=== PATIENT | male | born 1960 | race Caucasian/White ===

== ENCOUNTER 2016-11-13 01:07 | Emergency (ER) | payer MEDICAID ==
--- NOTE | 2016-11-13 06:47 | ER Document Report ---
ED General - General Mode of Arrival: Ambulatory Information source: Patient TRAVEL OUTSIDE OF THE [place] IN LAST 30 DAYS: No - HPI Onset: Other - see narrative Onset/Duration: Intermittent Quality of pain: No pain Severity: None Associated symptoms: None Exacerbated by: Denies Relieved by: Denies Similar symptoms previously: No Recently seen / treated by doctor: No - General Chief Complaint: Leg Pain Stated Complaint: LOWER LEFT LEG PAIN-NO INJURY Notes: Patient is a 56 year old male that presents to the emergency department today with complaints of ankles/hands turning purple. Patient is a poor historian so history is limited. Patient reports 3 months of intermittent color change in his hands and ankles. Patient is not able to correlate any specific actions with this color change. Patient states he has never been told he has Raynaud's syndrome. (CATINA SPRINGER) - Related Data Allergies/Adverse Reactions: No Known Allergies Allergy (Unverified 04/28/12 16:39) Past Medical History - General Information source: Patient, [facility] Records - Social History Smoking Status: Current Every Day Smoker Cigarette use (# per day): Yes Chew tobacco use (# tins/day): No Frequency of alcohol use: None Drug Abuse: None Lives with: Family Family History: Reviewed & Not Pertinent, CAD, Hyperlipidemia, Hypertension Patient has suicidal ideation: No Patient has homicidal ideation: No - Past Medical History Cardiac Medical History: Reports: Hx Hypertension Neurological Medical History: Reports: Hx Seizures - Seizures when drinking states he has not drank in 16 years Musculoskeltal Medical History: Reports Hx Arthritis, Reports Hx Musculoskeletal Deformity - degenerative disc disease, Reports Hx Musculoskeletal Trauma Traumatic Medical History: Reports: Hx Fractures, Hx Spine Fracture - States "back in 2 places" Surgical Hx: Negative Review of Systems - Review of Systems Constitutional: No symptoms reported EENT: No symptoms reported Cardiovascular: No symptoms reported Respiratory: No symptoms reported Gastrointestinal: No symptoms reported Genitourinary: No symptoms reported Male Genitourinary: No symptoms reported Musculoskeletal: No symptoms reported Skin: See HPI, Other - hands and ankles are "purple" Hematologic/Lymphatic: No symptoms reported Neurological/Psychological: No symptoms reported -: Yes All other systems reviewed and negative Physical Exam - General General appearance: Appears well, Alert In distress: None - HEENT Head: Normocephalic, Atraumatic Eyes: Normal Extraocular movements intact: Yes - Respiratory Respiratory status: No respiratory distress Chest status: Nontender Breath sounds: Normal - Cardiovascular Rhythm: Regular Heart sounds: Normal auscultation Pulses: Normal: Femoral, Popliteal, Dorsalis pedis - Abdominal Inspection: Normal Distension: No distension - Extremities General upper extremity: Normal inspection, Nontender, Normal ROM General lower extremity: Normal inspection, Nontender, Normal ROM - Neurological Neuro grossly intact: Yes Cognition: Normal Orientation: AAOx4 Speech: Normal - Psychological Associated symptoms: Normal affect, Normal mood - Skin Skin Temperature: Warm Skin Moisture: Dry Skin Color: Normal - Vital signs Vitals: Temp Pulse Resp BP Pulse Ox 98.2 F 103 H 16 123/69 97 11/13/16 01:58 11/13/16 01:58 11/13/16 01:58 11/13/16 01:58 11/13/16 01:58 (CIELO ALFONSO) (CATINA SPRINGER) - Extremities Notes: Hands and Ankles are well profused, normal color. (CATINA SPRINGER) Course - Re-evaluation Re-evalutation: 11/13/16 07:04 I personally performed the services described in the documentation, reviewed and edited the documentation which was dictated to my scribe in my presence, and it accurately records my words and actions. seen and evaluated for left leg pain bilateral calf pain. Patient states been going on for several months. 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 He is ambulatory in the ED examined in a gown. 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 He has not follow-up with his primary care physician and is a heavy smoker. He says that both of his Throat and Ache. He Is on Multiple Medications Including Pain Management and Neurontin. He Denies This Being New or Different in the past Several Months. Denies Any Back Pain Abdominal Pain Loss of Bowel or Bladder Function Urinary Symptoms or Difficulty with Ambulation. He Says Occasionally He Is Fingertips on Both Sides of His Hand Turned Blue Currently on Examination Is Well-Appearing Nontoxic in No Acute Distress. On Full Examination she is alert and oriented 3 no abdominal tenderness guarding rebound rigidity equal bilateral femoral dorsalis pedis posterior tibial pulses good perfusion to the lower x-rays no discoloration and cyanosis ecchymosis or neurological deficit he is ambulatory without any difficulty. At this point he could have a component of vascular disease given his extensive history of smoking. No acute vascular or neurological compromise currently but he needs to follow up closely with his primary care physician and have outpatient testing for this. Discussed specifically with him reasons for ED return sooner (CIELO ALFONSO) - Vital Signs Vital signs: Temp Pulse Resp BP Pulse Ox 98.4 F 100 16 122/83 97 11/13/16 07:30 11/13/16 07:30 11/13/16 07:30 11/13/16 07:30 11/13/16 07:30 (CIELO ALFONSO) (CATINA SPRINGER) Scribe Documentation - Scribe Written by Ginette:: Ginette Garcia, 0900 11/13/2016 acting as scribe for :: Joey
[2016-11-13 07:33] VITALS: BP 122/83
== END 2016-11-13 07:34 | disposition home or self-care (01) ==
LOC: ER 01:07
DX: M79.605 Pain in left leg (principal); F17.210 Nicotine dependence, cigarettes, uncomplicated; I10 Essential (primary) hypertension
CPT/HCPCS: 99283

== ENCOUNTER → 2016-11-27 | Outpatient (CLI) | payer MEDICAID | LOC: RAD 06:44 | PROVIDERS: ATTEND Physician Assistant | DX: J44.9 Chronic obstructive pulmonary disease, unspecified (principal) | CPT/HCPCS: 71020 ==

== ENCOUNTER → 2016-12-11 | Outpatient (CLI) | payer MEDICAID ==
--- NOTE | 2016-12-11 15:59 | XCELERA REPORT ---
[address] [address] Upper Extremity Arterial Evaluation Name: LYNNETTEGALI JR Narda Age: 56 yrs Gender: Male : 1960 Patient Status: Outpatient Patient Location: Study Date: 12/11/2016 01:34 PM Procedure: A duplex scan of the upper extremity arteries was performed bilaterally. Reason For Study: CLAUDICATION I73.9 Ordering Physician: MELONIE WESTBROOK PA-C Performed By: Gee Baez Measurements and Calculations Right Left Mid SCLA PSV 60.8 36.8 cm/sec Ax A PSV 48.2 39.9 cm/sec Dist Brach A PSV -58.5 -46.3 cm/sec Dist Rad A PSV 29.5 40.4 cm/sec Dist Ulnar A PSV 23.6 19.6 cm/sec Ax A PSV 48.2 39.9 cm/sec Dist Brach A PSV -58.5 -46.3 cm/sec Dist Rad A PSV 29.5 40.4 cm/sec Dist Ulnar A PSV 23.6 19.6 cm/sec Mid SCLA PSV 60.8 36.8 cm/sec Right Side Arterial Evaluation Normal velocity, waveform and triphasic flow are present, from the Common Carotid artery to the forearm vessels. 0 % stenosis is noted. Left Side Arterial Evaluation Normal velocity, waveform and triphasic flow are present, from the Common Carotid artery to the forearm vessels. 0 % stenosis is noted. Interpretation Summary No hemodynamically significant lesions in the bilateral upper extremities, on duplex imaging, at rest. : ABDULAZIZ SONG Lennox >
--- NOTE | 2016-12-11 16:02 | XCELERA REPORT ---
[address] [address] Lower Extremity Arterial Evaluation Name: GALI CHURCH JR Age: 56 yrs Gender: Male : 1960 Patient Status: Outpatient Patient Location: Study Date: 12/11/2016 01:22 PM Procedure: A color flow and duplex scan of the lower extremity arteries was performed bilaterally with velocity and waveform anaylsis. Reason For Study: CLAUDICATION I73.9 Ordering Physician: MELONIE WESTBROOK PA-C Performed By: Gee Baez Measurements and Calculations Right Left CALL CENTER SUPPORT CONSULTANT PSV 79.4 82.5 cm/sec Prox PFA PSV -61.6 -59.4 cm/sec Dist SFA PSV -59.4 -55.5 cm/sec Prox Pop A PSV 40.2 50.5 cm/sec Dist YEMI PSV 47.1 36.2 cm/sec Dist ANESTHESIOLOGY PHYSICIAN ASSISTANT PSV 42.1 42.1 cm/sec David Pedis PSV 52.8 52.5 cm/sec Right Side Arterial Evaluation Normal velocity, waveform and triphasic flow are present, from the Common Femoral artery to the infrageniculate vessels. The ankle-brachial index is 1.06. 0 % stenosis is noted. Left Side Arterial Evaluation Normal velocity, waveform and triphasic flow are present, from the Common Femoral artery to the infrageniculate vessels. The ankle-brachial index is 1.09. 0 % stenosis is noted. Interpretation Summary No hemodynamically significant lesions in the bilateral lower extremities, on duplex imaging, at rest. : MELONIE WESTBROOK PA-C > Genaro Alvarez
== END ==
LOC: SP 12:38
PROVIDERS: ATTEND Physician Assistant
DX: I73.9 Peripheral vascular disease, unspecified (principal)
CPT/HCPCS: 93925; 93930

== ENCOUNTER 2016-12-12 02:15 | Observation (INO) | payer MEDICAID ==
[2016-12-12] MEDS ORDERED: ALBUTEROL SULFATE 0.083% NEB 2.5 MG/3 ML AMPUL NEB ONE ×2 (02:29→02:59)
[2016-12-12 02:54] LABS: VENOUS BLOOD BASE EXCESS -5.4 mmol/L; VENOUS BLOOD HCO3 23.3 mmol/L (20-32); VENOUS BLOOD PCO2 58.8 mmHg (35-63); VENOUS BLOOD PH 7.22 (7.30-7.42)
[2016-12-12 02:54] LABS: ARTERIAL BLOOD BASE EXCESS -6.1 mmol/L; ARTERIAL BLOOD O2 SATURATION 99.5 % (94-98)
[2016-12-12 02:59] LABS: PROTHROMBIN TIME 16.7 SEC (11.4-15.4)
[2016-12-12 03:02] LABS: ABSOLUTE BASOPHILS # (AUTO) 0.1 10^3/uL (0.0-0.2); ABSOLUTE EOSINOPHILS # (AUTO) 0.1 10^3/uL (0.0-0.6); ABSOLUTE LYMPHOCYTES (AUTO) 2.7 10^3/uL (0.5-4.7); ABSOLUTE MONOCYTES (AUTO) 1.3 10^3/uL (0.1-1.4); ABSOLUTE NEUT (AUTO) 7.3 10^3/uL (1.7-8.2); BASOPHILS % (AUTO) 0.8 % (0-2); EOSINOPHILS % (AUTO) 0.7 % (0-6); HEMOGLOBIN 15.3 g/dL (13.5-17.0); HGB HCT DIFFERENCE -2.1; LYMPHOCYTES % (AUTO) 23.7 % (13-45); MEAN CORPUSCULAR HEMOGLOBIN 28.1 pg (27.0-33.4); MEAN CORPUSCULAR VOLUME 88 fl (80-97); MONOCYTES % (AUTO) 11.1 % (3-13); RED BLOOD COUNT 5.45 10^6/uL (4.35-5.55); SEGMENTED NEUTROPHILS % (AUTO) 63.7 % (42-78); WHITE BLOOD COUNT 11.4 10^3/uL (4.0-10.5)
--- NOTE | 2016-12-12 03:04 | ER Document Report ---
ED Respiratory Problem - General Chief Complaint: Breathing Difficulty Stated Complaint: SHORTNESS OF BREATH Time seen by provider: 03:04 Mode of Arrival: Ambulatory Information source: Patient TRAVEL OUTSIDE OF THE [place] IN LAST 30 DAYS: No - HPI Patient complains to provider of: Short of breath Short of Breath: Severe Chest pain/discomfort: Tightness Cough: Nonproductive Associated symptoms: Congestion, Cough, Difficulty breathing, Short of breath Notes: Patient is a 56-year-old male who arrived by private vehicle, apparently a friend dropped him off for complaints of difficulty breathing, and purplish discoloration to his face, ears, hands and feet, patient reports she's had a cold for a few days, which is worsened and caused him to have worsening shortness of breath, he is a smoker but reports he's only smoked 2 cigarettes in the last 3 days and was recently diagnosed with COPD, his cough is nonproductive, there is no fever, no chest pain, no abdominal pain, no nausea or vomiting, patient was seen in this emergency room recently for the purplish discoloration to his hands and feet but apparently it was resolved at time of evaluation - Related Data Allergies/Adverse Reactions: No Known Allergies Allergy (Unverified 04/28/12 16:39) Past Medical History - General Information source: Patient - Social History Smoking Status: Current Every Day Smoker Family History: Reviewed & Not Pertinent, CAD, Hyperlipidemia, Hypertension Patient has suicidal ideation: No Patient has homicidal ideation: No - Past Medical History Cardiac Medical History: Reports: Hx Hypertension Neurological Medical History: Reports: Hx Seizures - Seizures when drinking states he has not drank in 16 years Renal/ Medical History: Denies: Hx Peritoneal Dialysis Musculoskeltal Medical History: Reports Hx Arthritis, Reports Hx Musculoskeletal Deformity - degenerative disc disease, Reports Hx Musculoskeletal Trauma Traumatic Medical History: Reports: Hx Fractures, Hx Spine Fracture - States "back in 2 places" Review of Systems - Review of Systems Constitutional: No symptoms reported EENT: No symptoms reported Cardiovascular: No symptoms reported Respiratory: See HPI Gastrointestinal: No symptoms reported Genitourinary: No symptoms reported Male Genitourinary: No symptoms reported Musculoskeletal: No symptoms reported Skin: See HPI, Change in color Hematologic/Lymphatic: No symptoms reported Neurological/Psychological: Confusion -: Yes All other systems reviewed and negative Physical Exam - Vital signs Vitals: Resp 25 H 12/12/16 02:28 Interpretation: Tachycardic, Hypoxic - General General appearance: Other - Patient with respiratory distress, central and peripheral cyanosis, mumbling with interspersed coherent speech In distress: Severe - HEENT Head: Normocephalic, Atraumatic Eyes: Normal - Respiratory Respiratory status: Respiratory distress, Cyanosis, Labored, Pursed lip breathing Chest status: Nontender Breath sounds: Decreased air movement Chest palpation: Normal - Cardiovascular Rhythm: Regular, Tachycardia - Abdominal Inspection: Normal Distension: No distension Bowel sounds: Normal Tenderness: Nontender Organomegaly: No organomegaly - Back Back: Normal - Extremities Hand: Other - Hands are cold with purplish discoloration and delayed capillary refill Foot: Other - Feet are cold with purplish discoloration in the late capillary refill - Neurological Onelia Coma Scale Eye Opening: To Voice Onelia Coma Scale Verbal: Confused [place] Coma Scale Motor: Obeys Commands Onelia Coma Scale Total: 13 - Skin Skin Temperature: Cool Skin Moisture: Dry Skin Color: Cyanotic - Cyanosis evident on the nose, face, ears, hands and feet Course - Re-evaluation Re-evalutation: 12/12/16 05:12 Patient is much more awake and alert, color is much more pink, vital signs are significantly improved, he is now able to answer questions more appropriately, reports cold-like symptoms for the past few days with increased difficulty breathing, a nonproductive cough, no fever, states she's only smoked 2 cigarettes in the last 3 days, patient reports that he takes Adderall, Percocet , Risperdal, Depakote, trazodone and Neurontin, given patient's initial presentation and laboratory findings patient will be discussed with the hospitalist for admission - Vital Signs Vital signs: Temp Pulse Resp BP Pulse Ox 20 128/105 H 98 12/12/16 04:15 12/12/16 03:17 12/12/16 04:15 - Laboratory Result Diagrams: 12/12/16 02:35 12/12/16 02:35 Laboratory results interpreted by me: 12/12/16 12/12/16 12/12/16 02:35 02:35 02:35 WBC 11.4 H RDW 15.0 H PT 16.7 H Carbonic Acid ABG pCO2 ABG pO2 ABG HCO3 ABG Total CO2 ABG O2 Saturation VBG pH Carboxyhemoglobin Sodium 131.4 L Chloride 96 L BUN 27 H Glucose 131 H POC Glucose Lactic Acid Calcium 8.3 L Total Bilirubin 1.7 H AST 188 H ALT 283 H Alkaline Phosphatase 178 H Creatine Kinase 305 H CK-MB (CK-2) Urine Urobilinogen 12/12/16 12/12/16 12/12/16 02:35 02:35 02:35 WBC RDW PT Carbonic Acid ABG pCO2 ABG pO2 ABG HCO3 ABG Total CO2 ABG O2 Saturation VBG pH 7.22 L Carboxyhemoglobin Sodium Chloride BUN Glucose POC Glucose Lactic Acid 3.9 H Calcium Total Bilirubin AST ALT Alkaline Phosphatase Creatine Kinase CK-MB (CK-2) 6.34 H Urine Urobilinogen 12/12/16 12/12/16 12/12/16 02:48 03:12 03:30 WBC RDW PT Carbonic Acid 0.82 L ABG pCO2 27.4 L ABG pO2 223.8 H ABG HCO3 16.9 L ABG Total CO2 17.7 L ABG O2 Saturation 99.5 H VBG pH Carboxyhemoglobin 1.9 H Sodium Chloride BUN Glucose POC Glucose 141 H Lactic Acid Calcium Total Bilirubin AST ALT Alkaline Phosphatase Creatine Kinase CK-MB (CK-2) Urine Urobilinogen 12/12/16 05:00 WBC RDW PT Carbonic Acid ABG pCO2 ABG pO2 ABG HCO3 ABG Total CO2 ABG O2 Saturation VBG pH Carboxyhemoglobin Sodium Chloride BUN Glucose POC Glucose Lactic Acid Calcium Total Bilirubin AST ALT Alkaline Phosphatase Creatine Kinase CK-MB (CK-2) Urine Urobilinogen 4.0 H - Diagnostic Test Radiology reviewed: Image reviewed, Reports reviewed - EKG Interpretation by [place] EKG shows normal: Sinus rhythm Rate: Tachycardia - Transfer of Care Care transferred to following provider: Dr. Tompkins Critical Care Note - Critical Care Note Total time excluding time spent on procedures (mins): 60 Comments: Patient arrived confused, hypoxic, with central and peripheral cyanosis, requiring immediate placement of BiPAP, close observation, warming blanket and IMCU admission Discharge - Discharge Clinical Impression: Cyanosis, COPD exacerbation Leukocytosis Qualifiers: Leukocytosis type: unspecified Qualified Code(s): D72.829 - Elevated white blood cell count, unspecified Condition: Fair Disposition: ADMITTED INPATIENT Admitting Provider: Hospitalist Unit Admitted: IMCU
[2016-12-12 03:14] LABS: ALANINE AMINOTRANSFERASE 283 U/L (21-72); ALBUMIN 3.5 g/dL (3.5-5.0); ALKALINE PHOSPHATASE 178 U/L (38-126); ANION GAP 13 (5-19); ASPARTATE AMINO TRANSFERASE 188 U/L (17-59); BILIRUBIN,TOTAL 1.7 mg/dL (0.2-1.3); BLOOD UREA NITROGEN 27 mg/dL (7-20); CALCIUM 8.3 mg/dL (8.4-10.2); CARBON DIOXIDE 22 mmol/L (22-30); CHLORIDE 96 mmol/L (98-107); CREATINE KINASE 305 U/L (55-170); CREATININE RESULT 1.07 mg/dL (0.52-1.25); GLUCOSE 131 mg/dL (75-110); POTASSIUM 4.2 mmol/L (3.6-5.0); SODIUM 131.4 mmol/L (137-145); TOTAL PROTEIN 6.5 g/dL (6.3-8.2)
[2016-12-12 03:24] LABS: CREATINE KINASE MB 6.34 ng/mL (<4.55)
[2016-12-12 03:40] LABS: TROPONIN I 0.094 ng/mL
[2016-12-12 03:52] LABS: LIPASE 125.8 U/L (23-300)
[2016-12-12 03:55] LABS: ALCOHOL < 10 mg/dL (NONE DETECTED)
[2016-12-12] MEDS ORDERED: LEVOFLOXACIN 750 MG/D5W RTU 150 ML IV ONE (04:19)
[2016-12-12 04:55] LABS: CARBOXYHEMOGLOBIN 1.9 % (0.5-1.5)
[2016-12-12 05:03] LABS: METHEMOGLOBIN 0.2 % (<1.5)
[2016-12-12 05:48] LABS: APPEARANCE,URINE CLEAR; BILIRUBIN,URINE NEGATIVE (NEGATIVE); GLUCOSE, URINE NEGATIVE (NEGATIVE); KETONES,URINE NEGATIVE (NEGATIVE); LEUKOCYTE ESTERASE,URINE NEGATIVE (NEGATIVE); NITRITE,URINE NEGATIVE (NEGATIVE); PROTEIN,URINE NEGATIVE (NEGATIVE); URINE SPECIFIC GRAVITY 1.024
[2016-12-12 05:54] LABS: URINE BARBITURATES SCREEN NEGATIVE; URINE METHADONE SCREEN NEGATIVE; URINE OPIATES LOW NEGATIVE; URINE PHENCYCLIDINE SCREEN NEGATIVE
[2016-12-12] MEDS ORDERED: IPRATROPIUM/ALBUTEROL 0.5-2.5 MG/3 ML AMPUL NEB PRN (07:36)
[2016-12-12] MEDS ORDERED: ACETAMINOPHEN 325 MG TABLET PO PRN (07:51)
--- NOTE | 2016-12-12 08:38 | PDOC H&P ---
History of Present Illness Admission Date/PCP: 12/12/16 05:40 Patient complains of: difficulty breathing, discoloration of hands and feet History of Present Illness: GALI CHURCH JR is a 56 year old male with underlying what he describes as recently diagnosed COPD, bipolar disorder, manic depressive disorder, history of hypertension, and tobacco dependency, smoking normally one pack a day until 2 days ago, when he's cut down to 2 cigarettes a day. Presents to the emergency room for evaluation of above complaints. Patient has been discussed with emergency room physician who evaluated the patient. Patient himself is a quite difficult historian. A quite odd affect at times. Frequently mumbles incoherently. As best I can determine, for the last 2 months or so, he's had intermittent problems with purplish discoloration of his hands and feet with cold sensation, and over the last 2 weeks or so, the same changes have occurred with his ears nose and cheeks. Episodes do not necessarily occur outside. Describes intermittent "cold and hot" sensation but no nausea vomiting, chest or abdominal pain, diarrhea or dysuria. A friend dropped him off at the emergency room entrance this evening for complaints of difficulty breathing along with a purplish discoloration of his face ears hands and feet. Patient states he's had a "cold" for a few days, with slowly worsening shortness of breath. Dry cough. Was noted to be in fairly pronounced respiratory and overall distress upon arrival, and placed on BiPAP. Temperature upon arrival 96.5. Reportedly hypoxic, although this is not documented in the vital sign chart. Bairhugger warming device Was applied. According to the emergency room physician, cyanosis and respiratory distress rapidly resolved with treatment, and his core temperature normalized quickly also. Currently resting quietly, though complaining of intermittent cramps of his left lower extremity. States he frequently gets leg cramps. Denies pain other than his left lower extremity, pointing to the distal posterior thigh and popliteal fossa. Was seen in the emergency room on the second of this month with complaints of his ankles and hands turning purple, noting at that time a 3 month history of this. Never been told he has Raynaud syndrome. Subsequent workup included negative bilateral lower extremity venous Doppler study on September 18 of last year, and negative bilateral upper and lower extremity arterial Doppler studies earlier on 12/11/2016. Reports are noted. Laboratory results are listed in [facility] and are reviewed. X-ray summary results are listed below, with full report(s) reviewed. . EKG reviewed. No prior tracing available for review. Social history/personal habits: Single. 2 children. On disability due to back trouble along with his mental issues, including bipolar disorder and manic depression. Allergies/adverse reactions NKDA. Home medicationshome medications initially autopopulated into [facility] may not accurately reflect patient's true medications, dosages, and/or frequencies. Unfortunately, patient uncertain of medications/dosages/frequencies. Order has been entered for staff to contact family, outpatient physician, and/or pharmacy to more accurately determine medications, dosages, and frequencies and to contact physician when that has been accomplished. REVIEW OF SYSTEMS: Constitutional: See history and present illness. Eyes: No current vision complaints. ENT: No swallowing problems or complaints. No hearing problems or complaints. Pulmonary: See history and present illness. Cardiovascular: See history and present illness. Gastrointestinal: No current complaints, including nausea or vomiting. Skin: See history and present illness. Hematologic: No unusual easy bruising or bleeding. Neurologic: No current complaints, including numbness or tingling. Musculoskeletal: See history and present illness. Psychiatric: Anxiety depression; denies suicidal or homicidal ideation. Endocrine: No current complaints, including polyuria. Genitourinary: No current complaints, including dysuria. PHYSICAL EXAMINATION: 6 feet tall. 72.6 kg. BMI 21.7 kg/m. Blood pressure 118/92. Pulse 100 and regular. 99% saturation on 2 L oxygen per nasal cannula. Respirations are 18 and unlabored. Temperature not recorded; skin feels normothermic. Thin otherwise well-developed though somewhat chronically ill-appearing slightly disheveled male initially appearing in obvious distress with complaints of left lower extremity cramps. These gradually resolved with combination of plantar flexion of his foot against resistance, along with massage of his leg. Fairly anxious gentleman at times, but without elver agitation. Skin is warm and dry. No grossly obvious evidence of rash in areas of skin examined. No subcutaneous nodules palpated. No evidence of cyanosis of extremities face or ears. ENT: Hearing grossly normal to normal conversation. Tongue midline on protrusion pink and slightly moist. Eyes: No scleral icterus. Pupils equal and reactive to light at 4 mm. [place] conjunctivae. Neck is supple and nontender to gentle active range of motion and palpation. Midline trachea. No palpable thyroid nodule mass enlargement or tenderness. Lymphatic: No palpable cervical or clavicular nodes. Neck and lymphatic exams limited by patient body habitus. Psychiatric: Rather odd affect at times. Intermittently mumbles incoherently. Difficult historian. Lungs: Auscultation reveals clear and equal breath sounds bilaterally. No use of accessory respiratory muscles. Cardiovascular: Heart regular rate and rhythm, without gallop murmur or rub. No carotid or abdominal aortic bruits. No ankle or pedal edema. palpable dorsalis pedis pulses. Evidence of what appears to be bilateral lower extremity varicose veins. Abdomen: soft, slightly distended nontender with positive bowel sounds. No upper abdominal mass or organomegaly is palpated.. Extremities: Hands and Feet are warm and dry, without cyanosis. No calf tenderness to compression. No grossly obvious visual evidence of calf swelling. No palpable venous cord, left calf or thigh. Gentle manipulation of lower extremities fails to reveal any obvious evidence of injury or instability to knees hips or ankles. Neurologic: Moves all 4 extremities grossly normally. Patellar reflexes absent. Absent Babinski. Light touch is intact at feet. Dorsiflexion and plantarflexion of feet 5 / 5 and symmetric. 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 states he has not drank in 16 years Denies: Hemorrhagic CVA, Ischemic CVA Endocrine Medical History: Denies: Diabetes Mellitus Type 1, Diabetes Mellitus Type 2, Hyperthyroidism, Hypothyroidism Renal/ Medical History: Reports: None GI Medical History: Denies: Cirrhosis, Gastroesophageal Reflux Disease, Hepatitis, Peptic Ulcer Disease Skin Medical History: Reports: None Psychiatric Medical History: Reports: Bipolar Disorder, Tobacco Dependency, Other - Manic depression Denies: Alcohol Dependency, Substance Abuse Hematology: Reports: None Infectious Medical History: Denies: Hepatitis B, Hepatitis C Past Surgical History Past Surgical History: Reports: None Social History Information Source: Patient, [facility], [facility] Records Smoking Status: Current Every Day Smoker Frequency of Alcohol Use: None Drugs: None - Advance Directive Resuscitation Status: Full Code Surrogate healthcare decision maker:: His brother Family History Family History: Reviewed & Not Pertinent, CAD, Hyperlipidemia, Hypertension Parental Family History Reviewed: Yes Children Family History Reviewed: Yes Sibling(s) Family History Reviewed.: Yes Medication/Allergy Home Medications: RX: Alprazolam [Xanax] 2 mg PO QHS 12/12/16 RX: Dextroamphetamine/Amphetamine [Adderall 30 mg Tablet] 30 mg PO QID 12/12/16 RX: Divalproex Sodium [Depakote] 500 mg PO Q12 12/12/16 RX: Gabapentin [Neurontin 400 mg Capsule] 800 mg PO DAILY 12/12/16 RX: Oxycodone HCl [Oxycodone HCl 10 MG Tablet] 10 mg PO TIDP PRN 12/12/16 RX: Risperidone [Risperdal] 9 mg PO QHS 12/12/16 RX: Trazodone HCl 150 mg PO QHS 12/12/16 Allergies/Adverse Reactions: No Known Allergies Allergy (Unverified 04/28/12 16:39) Physical Exam Vital Signs: Temp Pulse Resp BP Pulse Ox 96.5 F L 15 109/95 H 99 12/12/16 02:30 12/12/16 07:01 12/12/16 07:01 12/12/16 07:01 Results Impressions: Chest X-Ray 12/12/16 02:38 IMPRESSION: No significant interval change. No acute findings. Other findings as noted above Assessment & Plan - Diagnosis (1) Acute respiratory failure with hypoxia Is this a current diagnosis for this admission?: YesPlan: Resolved nicely with treatment so far. Oxygenating well on only 2 L oxygen per nasal cannula. No respiratory distress. (2) Hypothermia Qualifiers: Encounter type: initial encounter Qualified Code(s): T68.XXXA - Hypothermia, initial encounter Is this a current diagnosis for this admission?: YesPlan: Resolved nicely with treatment so far. (3) Elevated troponin Is this a current diagnosis for this admission?: YesPlan: Uncertain etiology. No outward clinical evidence of acute coronary syndrome, but we will trend enzymes. (4) Elevated LFTs Is this a current diagnosis for this admission?: YesPlan: Elevated versus prior labs last September. Hepatitis panel. (5) Left leg pain Is this a current diagnosis for this admission?: YesPlan: Stat left lower extremity venous Doppler study. (6) Cyanosis Is this a current diagnosis for this admission?: YesPlan: Uncertain etiology. Suspect Raynaud's syndrome. TSH pending. I have strongly encouraged patient not to get out of bed without notifying staff, to avoid a fall with injury. Knee high SCDs for DVT prophylaxis, along with subcutaneous Lovenox . Impression and plans were discussed with patient, who concurs. Time spent in evaluation and management of patient: 62 minutes.
[2016-12-12 09:07] LABS: CREATINE KINASE MB 5.09 ng/mL (<4.55)
[2016-12-12 09:11] LABS: TROPONIN I 0.076 ng/mL
[2016-12-12] MEDS: DOCUSATE SODIUM 100 MG CAPSULE PO SCH ×2 (09:20→17:09)
[2016-12-12] MEDS: ENOXAPARIN SODIUM INJ 40 MG/0.4 ML DISP.SYRIN SUBCUT SCH (09:20)
--- NOTE | 2016-12-12 11:00 | EKG REPORT ---
SEVERITY:- ABNORMAL ECG - SINUS TACHYCARDIA PROBABLE LEFT ATRIAL ABNORMALITY RIGHT AXIS DEVIATION BORDERLINE R WAVE PROGRESSION, ANTERIOR LEADS NONSPECIFIC REPOL ABNORMALITY, LATERAL LEADS : Confirmed by: Ivan Oseguera 12-Dec-2016 11:00:04
--- NOTE | 2016-12-12 13:04 | PDOC PROGRESS REPORT ---
Subjective Progress Note for:: 12/12/16 Subjective:: Complains of being hungry. Physical Exam Vital Signs: Temp Pulse Resp BP Pulse Ox 98.0 F 105 H 24 H 126/88 H 98 12/12/16 12:02 12/12/16 12:02 12/12/16 12:02 12/12/16 12:02 12/12/16 12:02 Intake & Output 12/11/16 12/12/16 12/13/16 06:59 06:59 06:59 Weight 72.575 kg General appearance: PRESENT: no acute distress Eye exam: PRESENT: conjunctiva pink. ABSENT: scleral icterus Ear exam: PRESENT: normal external ear exam Mouth exam: PRESENT: moist, tongue midline Neck exam: ABSENT: carotid bruit, JVD, lymphadenopathy, thyromegaly Respiratory exam: PRESENT: rhonchi - Scattered coarse rhonchi bilaterally.. ABSENT: rales, wheezes Cardiovascular exam: PRESENT: RRR. ABSENT: diastolic murmur, rubs, systolic murmur GI/Abdominal exam: PRESENT: normal bowel sounds, soft. ABSENT: distended, guarding, mass, organolmegaly, rebound, tenderness Extremities exam: ABSENT: calf tenderness, clubbing, pedal edema Neurological exam: PRESENT: alert, awake, oriented to person, oriented to place , oriented to time, oriented to situation Psychiatric exam: PRESENT: flat affect Skin exam: PRESENT: dry, intact, warm. ABSENT: cyanosis, rash Results Laboratory Results: 12/12/16 12/12/16 12/12/16 07:00 08:22 08:22 Lactic Acid 1.5 Magnesium 1.7 TSH 1.47 12/12/16 12/12/16 08:22 08:22 Creatine Kinase 238 H CK-MB (CK-2) 5.09 H Troponin I 0.076 Impressions: Chest X-Ray 12/12/16 02:38 IMPRESSION: No significant interval change. No acute findings. Other findings as noted above Assessment & Plan - Diagnosis (1) Acute respiratory failure with hypoxia Is this a current diagnosis for this admission?: YesPlan: Most likely secondary to some underlying COPD. She was hypothermia and there was concern about the possibility of infection and he was given Levaquin. (2) COPD exacerbation Is this a current diagnosis for this admission?: YesPlan: We'll give oral prednisone. And nebulizers as needed (3) Elevated LFTs Is this a current diagnosis for this admission?: YesPlan: Liver enzymes are up slightly. (4) Elevated troponin Is this a current diagnosis for this admission?: YesPlan: Troponins are slightly elevated but are trending down. Patient does not have any complaints of chest pain. (5) Hypothermia Qualifiers: Encounter type: initial encounter Qualified Code(s): T68.XXXA - Hypothermia, initial encounter Is this a current diagnosis for this admission?: YesPlan: The cause of this is unclear. Patient has been given antibiotics because the possibility of infection. Patient has no obvious infection but will continue with antibiotics for now. - Time Time Spent with patient: 25-34 minutes - Inpatient Certification Medical Necessity: Need for IV Antibiotics
--- NOTE | 2016-12-12 13:06 | XCELERA REPORT ---
[address] [address] Lower Extremity Venous Evaluation Name: GALI CHURCH JR Age: 56 yrs Gender: Male : 1960 Patient Status: Inpatient Patient Location: [id number] Study Date: 12/12/2016 11:46 AM Procedure: Color flow and duplex imaging of the veins of the left lower extremity as well as the right Common Femoral vein. Reason For Study: LLE pain Ordering Physician: YOEL DE LEON Performed By: Rosa Isela Storey Right Sided Venous Evaluation The right common femoral vein is fully compressible. Spontaneous and phasic flow is present in the right common femoral vein. Left Sided Venous Evaluation Normal vessel filling wall to wall, compression and augmentation as well as Colour flow down to the infrageniculate veins. Interpretation Summary No duplex evidence of DVT or obstruction in the left lower extremity nor in the right Common Femoral vein. : YOEL DE LEON [place]
[2016-12-12] MEDS ORDERED: PREDNISONE 20 MG TABLET PO ONE (13:30)
[2016-12-12 15:09] LABS: CREATINE KINASE MB 4.25 ng/mL (<4.55); TROPONIN I 0.078 ng/mL
[2016-12-13 05:54] LABS: ABSOLUTE LYMPHOCYTES (AUTO) 0.9 10^3/uL (0.5-4.7); ABSOLUTE MONOCYTES (AUTO) 0.8 10^3/uL (0.1-1.4); ABSOLUTE NEUT (AUTO) 8.3 10^3/uL (1.7-8.2); BASOPHILS % (AUTO) 0.2 % (0-2); EOSINOPHILS % (AUTO) 0.1 % (0-6); HEMATOCRIT 40.7 % (37.9-51.0); HEMOGLOBIN 13.6 g/dL (13.5-17.0); HGB HCT DIFFERENCE 0.1; LYMPHOCYTES % (AUTO) 9.4 % (13-45); MEAN CORPUSCULAR HGB CONC 33.5 g/dL (32.0-36.0); MEAN CORPUSCULAR VOLUME 86 fl (80-97); MONOCYTES % (AUTO) 7.7 % (3-13); RED BLOOD COUNT 4.71 10^6/uL (4.35-5.55); RED CELL DISTRIBUTION WIDTH 14.6 % (11.5-14.0); SEGMENTED NEUTROPHILS % (AUTO) 82.6 % (42-78)
[2016-12-13 06:11] LABS: ANION GAP 10 (5-19); BLOOD UREA NITROGEN 22 mg/dL (7-20); CALCIUM 8.6 mg/dL (8.4-10.2); CARBON DIOXIDE 20 mmol/L (22-30); CHLORIDE 97 mmol/L (98-107); CREATININE RESULT 0.85 mg/dL (0.52-1.25); GLUCOSE 112 mg/dL (75-110); POTASSIUM 4.8 mmol/L (3.6-5.0)
[2016-12-13] MEDS ORDERED: PREDNISONE 20 MG TABLET PO SCH (10:00)
[2016-12-13] MEDS ORDERED: LEVOFLOXACIN 750 MG/D5W RTU 150 ML IV SCH (10:00)
[2016-12-13] MEDS: ENOXAPARIN SODIUM INJ 40 MG/0.4 ML DISP.SYRIN SUBCUT SCH (10:48)
[2016-12-13] MEDS: DOCUSATE SODIUM 100 MG CAPSULE PO SCH (10:48)
[2016-12-13] MEDS ORDERED: NICOTINE 14 MG/24 HR PATCH.TD24 TD ONE (11:00)
[2016-12-13 12:18] VITALS: BP 123/90
--- NOTE | 2016-12-13 14:45 | PDOC DISCHARGE SUMMARY ---
General - Admit/Disc Date/PCP Admission Date/Primary Care Provider: 12/12/16 05:40 BRYANNA SHAFFER MD Discharge Date: 12/13/16 - Discharge Diagnosis (1) Acute respiratory failure with hypoxia Is this a current diagnosis for this admission?: YesSummary: It was initially felt this patient had a COPD exacerbation however he had complete resolution of his wheezing. 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 Patient also appeared to have some anxiety associated with this. (2) COPD exacerbation Is this a current diagnosis for this admission?: YesSummary: The patient had anxiety which most likely cause of COPD exacerbation and that has resolved. Patient will not be sent home on any steroids. (3) Elevated LFTs Is this a current diagnosis for this admission?: Yes (4) Elevated troponin Is this a current diagnosis for this admission?: YesSummary: The patient's troponins declined and were not significant. Patient did not have any complaints of chest pain. (5) Hypothermia Is this a current diagnosis for this admission?: YesSummary: No obvious cause for the hypothermia was found. There was concern initially this might represent infection however patient has no evidence for infection. 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 - Additional Information Resuscitation Status: Full Code Discharge Diet: Cardiac Discharge Activity: Activity As Tolerated Home Medications: Alprazolam [Xanax] 2 mg PO QHS 12/12/16 Dextroamphetamine/Amphetamine [Adderall 30 mg Tablet] 30 mg PO QID 12/12/16 Divalproex Sodium [Depakote] 500 mg PO Q12 12/12/16 Gabapentin [Neurontin 400 mg Capsule] 800 mg PO DAILY 12/12/16 Oxycodone HCl [Oxycodone HCl 10 MG Tablet] 10 mg PO TIDP PRN 12/12/16 Risperidone [Risperdal] 9 mg PO QHS 12/12/16 Trazodone HCl 150 mg PO QHS 12/12/16 History of Present Illness History of Present Illness: 56-year-old male who has been a heavy smoker who presented with complaints of his hands and feet being blue. Patient also had some cyanosis around his mouth. The patient was initially thought to be hypoxic however his oxygen saturations were normal. There is also concerned that he may have problems with COPD however did not have any wheezing on exam. Patient also was noted to be hypothermic and is admitted for further workup. Hospital Course Hospital Course: GALI CHURCH JR is a 56 year old male who presented with cyanosis. He also had some complaints of anxiety. The patient when he presented was reportedly hypoxic however he was actually cyanotic but had normal oxygen saturations. He was noted to be hypothermic also. Because the possibility of this being infectious he was started on antibiotics empirically. The patient however has been a heavy smoker and he did have several episodes where he became cyanotic in his hands and feet is consistent with Potts's disease. The patient had complete resolution of his symptoms. Patient is instructed to quit smoking and no change in his medications were made. Physical Exam Vital Signs: Temp Pulse Resp BP Pulse Ox 97.7 F 109 H 16 123/90 H 99 12/13/16 12:16 12/13/16 12:16 12/13/16 12:16 12/13/16 12:16 12/13/16 12:16 Intake & Output 12/12/16 12/13/16 12/14/16 06:59 06:59 06:59 Intake Total 1488 Balance 1488 Weight 74.4 kg General appearance: PRESENT: no acute distress Eye exam: PRESENT: conjunctiva pink. ABSENT: scleral icterus Mouth exam: PRESENT: moist, tongue midline Neck exam: ABSENT: JVD Respiratory exam: PRESENT: clear to auscultation nyasia. ABSENT: rales, rhonchi, wheezes Cardiovascular exam: PRESENT: RRR. ABSENT: diastolic murmur, rubs, systolic murmur GI/Abdominal exam: PRESENT: normal bowel sounds, soft. ABSENT: distended, guarding, mass, organolmegaly, rebound, tenderness Extremities exam: ABSENT: calf tenderness, clubbing, pedal edema Neurological exam: PRESENT: alert, awake, oriented to person, oriented to place , oriented to time, oriented to situation, CN II-XII grossly intact. ABSENT: motor sensory deficit Psychiatric exam: PRESENT: unusual affect Skin exam: PRESENT: dry, intact, warm, other - Patient has no cyanosis today but yesterday afternoon he had cyanosis of his bilateral fingers. He however did have good radial pulses bilaterally. He also had normal capillary refill.. ABSENT: cyanosis, rash Results Laboratory Results: 12/13/16 05:13 12/13/16 05:13 12/13/16 12/13/16 05:13 05:13 WBC 10.0 RBC 4.71 Hgb 13.6 Hct 40.7 MCV 86 MCH 29.0 MCHC 33.5 RDW 14.6 H Plt Count 223 Seg Neutrophils % 82.6 H Lymphocytes % 9.4 L Monocytes % 7.7 Eosinophils % 0.1 Basophils % 0.2 Absolute Neutrophils 8.3 H Absolute Lymphocytes 0.9 Absolute Monocytes 0.8 Absolute Eosinophils 0.0 Absolute Basophils 0.0 Sodium 127.0 L Potassium 4.8 Chloride 97 L Carbon Dioxide 20 L Anion Gap 10 BUN 22 H Creatinine 0.85 Est GFR ( Amer) > 60 Est GFR (Non-Af Amer) > 60 Glucose 112 H Calcium 8.6 12/12/16 12/12/16 12/12/16 08:22 08:22 14:09 Creatine Kinase 238 H CK-MB (CK-2) 5.09 H 4.25 Troponin I 0.076 0.078 12/12/16 14:17 Creatine Kinase 195 H CK-MB (CK-2) Troponin I Impressions: Chest X-Ray 12/12/16 02:38 IMPRESSION: No significant interval change. No acute findings. Other findings as noted above Qualifiers PATEINT BEING DISCHARGED WITH ANY OF THE FOLLOWING DIAGNOSIS?: No Plan Discharge Plan: Patient is discharged to home and will follow-up with his primary care doctor in the next 2 weeks. He is instructed to quit smoking. Time Spent: Less than 30 Minutes
== END 2016-12-13 14:15 | disposition home or self-care (01) ==
LOC: ER 02:15 → INTOOBSV 05:40 → EH 05:40 → 4S 12:33
PROVIDERS: ADMIT Family Medicine; ATTEND Family Medicine
DX: J96.01 Acute respiratory failure with hypoxia (principal); J44.1 Chronic obstructive pulmonary disease with (acute) exacerbation; R79.89 Other specified abnormal findings of blood chemistry; R68.0 Hypothermia, not associated with low environmental temperature; E78.3 Hyperchylomicronemia; F17.210 Nicotine dependence, cigarettes, uncomplicated; I10 Essential (primary) hypertension; F31.9 Bipolar disorder, unspecified; Z82.49 Family history of ischemic heart disease and other diseases of the circulatory system; Z83.42 Family history of familial hypercholesterolemia
CPT/HCPCS: 93005; 94640; 99291; 96365; 36415 ×2; 87040; 87086; 82375; 82553; 82962; 80307 ×2; 82803 ×2; 82550; 83690; 83735; 83050; 84443; 85025 ×2; 85610; 80048; 80053; 81001; 84484; 80164; 83605; 80074; 93971 ×2; 71010; 93010; 36600; 94660; G0378 ×3; J3490 ×4; J1650; J7512 ×2; J1956 ×2

== ENCOUNTER 2016-12-22 17:39 | Emergency (ER) | payer MEDICAID ==
[2016-12-22] MEDS ORDERED: IPRATROPIUM/ALBUTEROL 0.5-2.5 MG/3 ML AMPUL NEB ONE ×2 (18:07→18:46)
[2016-12-22] MEDS ORDERED: METHYLPREDNISOLONE INJ 125 MG/2 ML SDV IV ONE (18:07)
--- NOTE | 2016-12-22 18:07 | ER Document Report ---
ED Medical Screen (RME) - General Stated Complaint: CHEST PAIN Notes: Patient is a 56-year-old male presents emergency Department complaining of chest pain, difficulty breathing since sunday. back pain. d/c from [place] on Sunday Supposed to be on oxygen at home Past medical history significant for CHF, COPD was satting 83% on room air placed on 3L NC and satting ?86. I have greeted and performed a rapid initial assessment of this patient. A comprehensive ED assessment and evaluation of the patient, analysis of test results and completion of the medical decision making process will be conducted by additional ED providers. TRAVEL OUTSIDE OF THE [place] IN LAST 30 DAYS: No - Related Data Allergies/Adverse Reactions: No Known Allergies Allergy (Unverified 04/28/12 16:39) Past Medical History - Past Medical History Cardiac Medical History: Reports: Hx Hypertension Denies: Hx Heart Attack - History of, Hx Hypercholesterolemia Pulmonary Medical History: Reports: Hx COPD Neurological Medical History: Reports: Hx Seizures - Seizures when drinking states he has not drank in 16 years Endocrine Medical History: Denies: Hx Diabetes Mellitus Type 1, Hx Diabetes Mellitus Type 2, Hx Hyperthyroidism, Hx Hypothyroidism Renal/ Medical History: Denies: Hx Peritoneal Dialysis GI Medical History: Denies: Hx Cirrhosis, Hx Gastroesophageal Reflux Disease, Hx Hepatitis Musculoskeltal Medical History: Reports Hx Arthritis, Reports Hx Musculoskeletal Deformity - degenerative disc disease, Reports Hx Musculoskeletal Trauma Psychiatric Medical History: Reports: Hx Bipolar Disorder Traumatic Medical History: Reports: Hx Fractures, Hx Spine Fracture - States "back in 2 places" Infectious Medical History: Denies: Hx Hepatitis
[2016-12-22] MEDS ORDERED: ASPIRIN 81 MG TABLET, CHEWABLE PO ONE (18:08)
--- NOTE | 2016-12-22 18:29 | ER Document Report ---
ED General - General Chief Complaint: Altered Mental Status Stated Complaint: CHEST PAIN Cannot obtain history due to: Uncooperative Notes: Patient is a 56-year-old male past medical history of liver cirrhosis, COPD, Buerger's disease who presents with 3 days of apparently progressively worsening altered mental status and cyanosis. He is a very poor historian and does not provide any meaninful hisotyr. His [id number]'s at the bedside and likewise is a very poor historian, does not know the medications that the patient takes. He was apparently just discharged from [facility] 4 days ago after being hospitalized for a total of 4 days apparently for hypoxemia but she does not know additional details. He was supposedly discharged with oxygen but never received it. Family states that since that time he's been getting more confused, and intermittently complaining of chest discomfort. Of note, patient was also hospitalized the beginning of this month here at [facility] for cyanosis which was thought to be secondary to Buerger's disease as opposed to primary COPD. TRAVEL OUTSIDE OF THE [place] IN LAST 30 DAYS: No - Related Data Allergies/Adverse Reactions: No Known Allergies Allergy (Verified 12/22/16 18:03) Past Medical History - General Information source: Relative - Social History Smoking Status: Former Smoker - Stopped 1 week ago Chew tobacco use (# tins/day): No Frequency of alcohol use: None Drug Abuse: None Lives with: Family Family History: Reviewed & Not Pertinent, CAD, Hyperlipidemia, Hypertension Patient has suicidal ideation: No Patient has homicidal ideation: No - Past Medical History Cardiac Medical History: Reports: Hx Hypertension Denies: Hx Heart Attack - History of, Hx Hypercholesterolemia Pulmonary Medical History: Reports: Hx COPD Neurological Medical History: Reports: Hx Seizures - Seizures when drinking states he has not drank in 16 years Endocrine Medical History: Denies: Hx Diabetes Mellitus Type 1, Hx Diabetes Mellitus Type 2, Hx Hyperthyroidism, Hx Hypothyroidism Renal/ Medical History: Denies: Hx Peritoneal Dialysis GI Medical History: Denies: Hx Cirrhosis, Hx Gastroesophageal Reflux Disease, Hx Hepatitis Musculoskeltal Medical History: Reports Hx Arthritis, Reports Hx Musculoskeletal Deformity - degenerative disc disease, Reports Hx Musculoskeletal Trauma Psychiatric Medical History: Reports: Hx Bipolar Disorder Traumatic Medical History: Reports: Hx Fractures, Hx Spine Fracture - States "back in 2 places" Infectious Medical History: Denies: Hx Hepatitis Review of Systems - Review of Systems Notes: Constitutional: Negative for fever. HENT: Negative for sore throat. Eyes: Negative for visual changes. Cardiovascular: Negative for chest pain. Respiratory: Negative for shortness of breath. Gastrointestinal: Negative for abdominal pain, vomiting or diarrhea. Genitourinary: Negative for dysuria. Musculoskeletal: Negative for back pain. Skin: Negative for rash. Neurological: Negative for headaches, weakness or numbness. Positive for confusion per family 10 point ROS negative except as marked above and in HPI. Physical Exam - Vital signs Vitals: Resp 33 H 12/22/16 18:24 Interpretation: Tachycardic, Hypoxic, Tachypneic Notes: PHYSICAL EXAMINATION: GENERAL: Appears much older than stated age. In no acute distress HEAD: Atraumatic, normocephalic. EYES: Pupils equal round and reactive to light, extraocular movements intact, sclera anicteric, conjunctiva are normal. ENT: nares patent, oropharynx clear without exudates. Moderately dry mucous membranes. Perioral cyanosis NECK: Normal range of motion, supple without lymphadenopathy LUNGS: Breath sounds clear to auscultation bilaterally and equal. Poor air movement bilaterally. Scattered wheezing bilaterally. HEART: Regular tachycardia without murmurs ABDOMEN: Soft, nontender, normoactive bowel sounds. No guarding, no rebound. No masses appreciated. EXTREMITIES: Normal range of motion, 1+ pitting edema bilateral lower extremities. Cyanosis of the hands and feet. NEUROLOGICAL: No focal neurological deficits. Moves all extremities spontaneously and on command. PSYCH: Appears mildly confused on initial assessment, unable to provide meaningful history. After multiple attempts patient is oriented to month, year and the current Pres. [facility] SKIN: Cool, Dry, normal turgor, no rashes or lesions noted. Course - Re-evaluation Re-evalutation: 12/22/16 18:42 Patient presents cyanotic, hypoxemic to 83% on room air. Patient was 92% on 6 L by nasal cannula so was transitioned to BiPAP for ventilatory assistance. The exact etiology of his hypoxemia at this time is somewhat unclear as his lungs actually sound mostly clear with scattered wheezing. No evidence of overt volume overload on exam but patient does have a history of CHF. The patient does have known Buerger's disease but he should not have hypoxemia. Patient has no prior history of DVT or pulmonary embolus and his clinical history is not consistent with this diagnosis. He did have a normal venous Doppler study during his prior admission. Will obtain broad labs, stat portable chest x-ray, and reassess frequently. Patient is critically ill at this time 12/22/16 19:29 Arterial gas demonstrates hyperoxia which suggests that the pulse oximetry readings are inaccurate and that patient cyanosis is likely secondary to his Buerger's disease. He will be trialed off BiPAP on nasal cannula at 2 L and clinically reassessed. Remainder of his laboratories at this time are unremarkable. Chest x-ray shows findings consistent with COPD but no acute infiltrate or findings. 12/22/16 20:22 Troponin returned mildly elevated, actually decreased from 12/13/16. Patient is more awake and alert at this time, o2 sat 95% on NC. 12/22/16 21:41 Now with a reliable pulse oximeter in place, patient is saturating 95-96% on room air. I believe our initial concerns of severe hypoxemia were unfounded secondary to inaccurate pulse oximetry readings and patient's baseline confusion. He is now eating a sandwich and in no discomfort at all. No rest or distress. His ammonia level is normal. His lactate is marginally elevated and I suspect this is secondary to his baseline liver failure. Will obtain a second troponin and if this is not trended any concerning direction, will plan for discharge with recommendations for outpatient follow-up and return precautions. 12/22/16 23:34 Patient continues to be without any distress at this time. Maintains oxygen saturations in the mid 90s off oxygen. Second troponin has down trended and his clinical history is not consistent with an acute cardiac etiology of today' s presentation. I have recommended that he follow closely as directed per his admission team in the coming days. Of note, patient has remained mildly tachycardic which is consistent with his baseline heart rate based on the entirety of his prior admission which his heart rate remained in the low 100s. At this time will discharge with return precautions and follow-up recommendations. Verbal discharge instructions given a the bedside and opportunity for questions given. Medication warnings reviewed. Patient is in agreement with this plan and has verbalized understanding of return precautions and the need for primary care follow-up in the next 24-72 hours. - Vital Signs Vital signs: Temp Pulse Resp BP Pulse Ox 101 H 15 125/95 H 92 12/22/16 18:41 12/23/16 00:01 12/23/16 00:01 12/23/16 00:01 - Laboratory Result Diagrams: 12/22/16 18:30 12/22/16 18:30 Laboratory results interpreted by me: 12/22/16 12/22/16 12/22/16 18:30 18:30 18:30 RDW 15.6 H Carbonic Acid ABG pCO2 ABG pO2 ABG Total CO2 ABG O2 Saturation Sodium 132.7 L Potassium 5.2 H Chloride 94 L BUN 21 H Lactic Acid AST 79 H ALT 211 H Alkaline Phosphatase 190 H Ammonia Creatine Kinase 174 H CK-MB (CK-2) 5.03 H 12/22/16 12/22/16 12/22/16 18:30 18:41 20:04 RDW Carbonic Acid 0.95 L ABG pCO2 31.5 L ABG pO2 213.9 H ABG Total CO2 22.1 L ABG O2 Saturation 99.5 H Sodium Potassium Chloride BUN Lactic Acid 2.5 H AST ALT Alkaline Phosphatase Ammonia < 8.7 L Creatine Kinase CK-MB (CK-2) - Diagnostic Test Radiology reviewed: Image reviewed, Reports reviewed Radiology results interpreted by me: 12/22/16 23:36 Chest x-ray: No acute infiltrate and edematous changes - EKG Interpretation by Me Additional EKG results interpreted by me: 12/22/16 18:44 Sinus tachycardia. Rate 106. Findings are consistent with LVH. QTC is 452. Critical Care Note - Critical Care Note Total time excluding time spent on procedures (mins): 35 Comments: Critical care time spent obtaining history from patient or surrogate, discussions with consultants, development of treatment plan with patient or surrogate, evaluation of patient's response to treatment, examination of patient , ordering and performing treatments and interventions, ordering and review of laboratory studies, re-evaluation of patient's condition, ordering and review of radiographic studies and review of old charts Discharge - Discharge Clinical Impression: Cyanosis, COPD exacerbation Condition: Good Disposition: HOME, SELF-CARE Additional Instructions: Please follow closely with your primary care physician in the next 1-2 days. Her oxygen levels are actually normal here and the bluish color of your hands is due to your Buerger's disease. Please return to the emergency room immediately if you experience any concerning symptoms including high fevers, severe headache, chest pain, difficulty breathing, abdominal pain, slurred speech, numbness or weakness in your arms or legs, or any other symptom that concerns you. Referrals: MELONIE WESTBROOK PA-C [Primary Care Provider] - Follow up tomorrow
[2016-12-22] MEDS: ALBUTEROL SULFATE 0.083% NEB 2.5 MG/3 ML AMPUL NEB SCH ×2 (18:43→19:03)
[2016-12-22 18:44] LABS: ABSOLUTE LYMPHOCYTES (AUTO) 1.8 10^3/uL (0.5-4.7); ABSOLUTE MONOCYTES (AUTO) 0.8 10^3/uL (0.1-1.4); ABSOLUTE NEUT (AUTO) 4.3 10^3/uL (1.7-8.2); BASOPHILS % (AUTO) 0.2 % (0-2); EOSINOPHILS % (AUTO) 0.2 % (0-6); HEMATOCRIT 46.6 % (37.9-51.0); HEMOGLOBIN 15.3 g/dL (13.5-17.0); HGB HCT DIFFERENCE -0.7; LYMPHOCYTES % (AUTO) 26.6 % (13-45); MEAN CORPUSCULAR HEMOGLOBIN 28.2 pg (27.0-33.4); MEAN CORPUSCULAR HGB CONC 32.9 g/dL (32.0-36.0); MEAN CORPUSCULAR VOLUME 86 fl (80-97); MONOCYTES % (AUTO) 11.1 % (3-13); RED BLOOD COUNT 5.44 10^6/uL (4.35-5.55); RED CELL DISTRIBUTION WIDTH 15.6 % (11.5-14.0); SEGMENTED NEUTROPHILS % (AUTO) 61.9 % (42-78); WHITE BLOOD COUNT 6.9 10^3/uL (4.0-10.5)
[2016-12-22 19:04] LABS: ARTERIAL BLOOD BASE EXCESS -1.9 mmol/L; ARTERIAL BLOOD O2 SATURATION 99.5 % (94-98)
[2016-12-22 19:09] LABS: ALANINE AMINOTRANSFERASE 211 U/L (21-72); ALBUMIN 3.6 g/dL (3.5-5.0); ALKALINE PHOSPHATASE 190 U/L (38-126); ANION GAP 9 (5-19); ASPARTATE AMINO TRANSFERASE 79 U/L (17-59); BILIRUBIN,TOTAL 0.9 mg/dL (0.2-1.3); BLOOD UREA NITROGEN 21 mg/dL (7-20); CALCIUM 9.3 mg/dL (8.4-10.2); CARBON DIOXIDE 30 mmol/L (22-30); CHLORIDE 94 mmol/L (98-107); CREATINE KINASE 174 U/L (55-170); CREATININE RESULT 0.89 mg/dL (0.52-1.25); GLUCOSE 100 mg/dL (75-110); POTASSIUM 5.2 mmol/L (3.6-5.0); SODIUM 132.7 mmol/L (137-145); TOTAL PROTEIN 6.8 g/dL (6.3-8.2)
--- NOTE | 2016-12-22 19:14 | EKG REPORT ---
SEVERITY:- ABNORMAL ECG - SINUS TACHYCARDIA ATRIAL PREMATURE COMPLEX LEFT ATRIAL ABNORMALITY LEFT VENTRICULAR HYPERTROPHY : Confirmed by: Enrike Sheridan MD 22-Dec-2016 19:13:35
[2016-12-22 19:21] LABS: CREATINE KINASE MB 5.03 ng/mL (<4.55)
[2016-12-22 19:31] LABS: TROPONIN I 0.058 ng/mL
[2016-12-23 00:26] VITALS: BP 125/95
== END 2016-12-23 00:25 | disposition home or self-care (01) ==
LOC: ER 17:39
DX: R23.0 Cyanosis (principal); J44.1 Chronic obstructive pulmonary disease with (acute) exacerbation; I73.1 Thromboangiitis obliterans [Buerger's disease]; R00.0 Tachycardia, unspecified; R06.82 Tachypnea, not elsewhere classified; R41.0 Disorientation, unspecified; R07.9 Chest pain, unspecified; R74.8 Abnormal levels of other serum enzymes; I10 Essential (primary) hypertension; K72.90 Hepatic failure, unspecified without coma; Z87.891 Personal history of nicotine dependence
CPT/HCPCS: 93005; 94640 ×2; 99291; 96374; 36415; 82553; 82140; 82803; 82550; 85025; 85610; 80053; 84484; 83605; 71010; 93010; 36600; 94660; J2930; J7620

== ENCOUNTER 2016-12-24 04:06 | Emergency (ER) | payer MEDICAID ==
--- NOTE | 2016-12-24 04:24 | ER Document Report ---
ED Respiratory Problem <DYANA FLORES - Last Filed: 12/24/16 08:28> - General Time seen by provider: 04:15 TRAVEL OUTSIDE OF THE [place] IN LAST 30 DAYS: No <JUAN RENEE - Last Filed: 12/24/16 08:33> - General Stated Complaint: DIFFICULTY BREATHING Notes: Patient is a 56-year-old male that comes by EMS for chief complaint of difficulty breathing, patient has a past medical history of COPD, Buerger's disease. Patient reports occasional cough, denies fever. Patient has an inhaler at home, no other home meds prescribed. Patient states he no longer smokes. Patient states that at night when he lies down he gets short of breath , states this has been happening for several nights, states he has been evaluated at both [place] and this location, states he was also admitted in this location. Patient states that he feels like he needs an oxygen tank but no one will give this to him. (JUAN RENEE) - Related Data Allergies/Adverse Reactions: No Known Allergies Allergy (Verified 12/22/16 18:03) Past Medical History - General Information source: Patient - Social History Smoking Status: Never Smoker Frequency of alcohol use: None Drug Abuse: None Lives with: Family Family History: Reviewed & Not Pertinent, CAD, Hyperlipidemia, Hypertension - Past Medical History Cardiac Medical History: Reports: Hx Hypertension Denies: Hx Heart Attack - History of, Hx Hypercholesterolemia Pulmonary Medical History: Reports: Hx COPD Neurological Medical History: Reports: Hx Seizures - Seizures when drinking states he has not drank in 16 years Endocrine Medical History: Denies: Hx Diabetes Mellitus Type 1, Hx Diabetes Mellitus Type 2, Hx Hyperthyroidism, Hx Hypothyroidism Renal/ Medical History: Denies: Hx Peritoneal Dialysis GI Medical History: Denies: Hx Cirrhosis, Hx Gastroesophageal Reflux Disease, Hx Hepatitis Musculoskeltal Medical History: Reports Hx Arthritis, Reports Hx Musculoskeletal Deformity - degenerative disc disease, Reports Hx Musculoskeletal Trauma Psychiatric Medical History: Reports: Hx Bipolar Disorder Traumatic Medical History: Reports: Hx Fractures, Hx Spine Fracture - States "back in 2 places" Infectious Medical History: Denies: Hx Hepatitis <JUAN RENEE - Last Filed: 12/24/16 08:33> Review of Systems - Review of Systems Constitutional: No symptoms reported EENT: No symptoms reported Cardiovascular: See HPI Respiratory: See HPI Gastrointestinal: No symptoms reported Genitourinary: No symptoms reported Male Genitourinary: No symptoms reported Musculoskeletal: No symptoms reported Skin: No symptoms reported Hematologic/Lymphatic: No symptoms reported Neurological/Psychological: No symptoms reported <JUAN RENEE - Last Filed: 12/24/16 08:33> Physical Exam <DYANA FLORES - Last Filed: 12/24/16 08:28> - Vital signs Interpretation: Normal - General General appearance: Other - patient talks slowly and quietly but is responsive - HEENT Head: Normocephalic, Atraumatic Eyes: Normal Conjunctiva: Normal Extraocular movements intact: Yes Eyelashes: Normal Pupils: PERRL Mucous membranes: Normal Pharynx: Normal Neck: Normal - Respiratory Respiratory status: No respiratory distress. No: Respiratory distress, Tachypnea Chest status: Nontender Breath sounds: Normal. No: Decreased air movement, Nonproductive cough, Productive cough, Wheezing Chest palpation: Normal - Cardiovascular Rhythm: Regular, Tachycardia Heart sounds: Normal auscultation, S1 appreciated, S2 appreciated Murmur: No - Abdominal Inspection: Normal Distension: No distension Bowel sounds: Normal Tenderness: Nontender Organomegaly: No organomegaly - Back Back: Normal, Nontender - Extremities General upper extremity: Normal inspection, Nontender, Normal color, Normal ROM , Normal temperature General lower extremity: Normal inspection, Nontender, Normal color, Normal ROM , Normal temperature, Normal weight bearing. No: Alina's sign - Neurological Neuro grossly intact: Yes Cognition: Normal Orientation: AAOx4 [place] Coma Scale Eye Opening: Spontaneous [place] Coma Scale Verbal: Oriented [place] Coma Scale Motor: Obeys Commands [place] Coma Scale Total: 15 Speech: Normal Motor strength normal: LUE, RUE, LLE, RLE Sensory: Normal - Psychological Associated symptoms: Normal affect, Normal mood - Skin Skin Temperature: Warm Skin Moisture: Dry Skin Color: Normal <JUAN RENEE - Last Filed: 12/24/16 08:33> - Vital signs Vitals: Resp 18 12/24/16 04:17 (DYANA FLORES) - Cardiovascular Notes: peripheral cyanosis, notably in the hands/fingers (JUAN RENEE) Course - Laboratory Result Diagrams: 12/24/16 07:21 12/24/16 04:57 <DYANA FLORES - Last Filed: 12/24/16 08:28> - Laboratory Result Diagrams: 12/24/16 07:21 12/24/16 04:57 <JUAN RENEE - Last Filed: 12/24/16 08:33> - Re-evaluation Re-evalutation: 12/24/16 08:17 Report received from Juan LAWLER. I was called into the patient's room because he intends to leave. He is angry. I instructed patient that we are waiting for his second troponin to come back. Patient was warned of possible heart attack risk of dying if he leaves without the results. Patient calm for the moment. 12/24/16 08:28 Troponin 0.060. Patient discharged home. Patient instructed to follow up on for his pulmonary function tests to obtain oxygen if indicated. (DYANA FLORES) Patient presented with peripheral cyanosis, difficult to obtain pulse oxygen reading, forehead reader placed, this showed 98-100% oxygen on room air. ABG was checked and normal. Chest x-ray unremarkable, patient with clear lungs on auscultation. Laboratory workup baseline including indeterminate cardiac enzyme , elevated LFTs. EKG shows tachycardia, on review of previous records patient always noted to be tachycardic. Discussed all these things in detail with Dr. Franklin. Patient monitored, cardiac enzymes will be cycled pending likely discharge. (JUAN RENEE) - Vital Signs Vital signs: Temp Pulse Resp BP Pulse Ox 97.5 F 21 H 113/84 99 12/24/16 04:18 12/24/16 08:02 12/24/16 08:02 12/24/16 06:36 (DYANA FLORES) - Laboratory Laboratory results interpreted by me: 12/24/16 12/24/16 12/24/16 04:31 04:57 07:21 WBC 11.1 H Hgb 13.4 L RDW 15.6 H Carbonic Acid 0.98 L ABG pCO2 32.7 L ABG Total CO2 21.7 L Sodium 134.5 L Carbon Dioxide 20 L BUN 24 H AST 100 H ALT 180 H Alkaline Phosphatase 203 H Total Protein 5.7 L Albumin 2.9 L (DYANA FLORES) Discharge <DYANA FLORES - Last Filed: 12/24/16 08:28> <JUAN RENEE - Last Filed: 12/24/16 08:33> - Discharge Clinical Impression: Shortness of breath Condition: Stable Disposition: HOME, SELF-CARE Additional Instructions: Your evaluation here does not show any new concerning abnormalities. Your oxygen levels have been normal here. Follow-up with your appointment on the 16th for pulmonary function testing and potential evaluation for oxygen at home. Return to emergency department for concerning or worsening symptoms.
[2016-12-24 04:40] LABS: ARTERIAL BLOOD BASE EXCESS -2.8 mmol/L; ARTERIAL BLOOD O2 SATURATION 97.3 % (94-98)
[2016-12-24] MEDS ORDERED: NORMAL SALINE 1000 ML 500 ML IV ONE (05:18)
[2016-12-24 05:38] LABS: ALANINE AMINOTRANSFERASE 180 U/L (21-72); ALBUMIN 2.9 g/dL (3.5-5.0); ALKALINE PHOSPHATASE 203 U/L (38-126); ANION GAP 13 (5-19); ASPARTATE AMINO TRANSFERASE 100 U/L (17-59); BILIRUBIN,TOTAL 0.6 mg/dL (0.2-1.3); BLOOD UREA NITROGEN 24 mg/dL (7-20); CALCIUM 8.4 mg/dL (8.4-10.2); CARBON DIOXIDE 20 mmol/L (22-30); CHLORIDE 102 mmol/L (98-107); CREATINE KINASE 100 U/L (55-170); GLUCOSE 93 mg/dL (75-110); POTASSIUM 4.4 mmol/L (3.6-5.0); SODIUM 134.5 mmol/L (137-145); TOTAL PROTEIN 5.7 g/dL (6.3-8.2)
[2016-12-24] MEDS ORDERED: ONDANSETRON 4 MG TAB.RAPDIS PO ONE (05:38)
[2016-12-24] MEDS ORDERED: FAMOTIDINE 20 MG TABLET PO ONE (05:38)
[2016-12-24 05:41] LABS: ALCOHOL < 10 mg/dL (NONE DETECTED)
[2016-12-24 05:49] LABS: CREATINE KINASE MB 3.24 ng/mL (<4.55); TROPONIN I 0.064 ng/mL
[2016-12-24 07:48] LABS: ABSOLUTE LYMPHOCYTES (AUTO) 2.1 10^3/uL (0.5-4.7); BASOPHILS % (AUTO) 0.1 % (0-2); EOSINOPHILS % (AUTO) 0.2 % (0-6); HEMATOCRIT 41.8 % (37.9-51.0); HEMOGLOBIN 13.4 g/dL (13.5-17.0); HGB HCT DIFFERENCE -1.6; LYMPHOCYTES % (AUTO) 18.6 % (13-45); MEAN CORPUSCULAR HEMOGLOBIN 27.5 pg (27.0-33.4); MEAN CORPUSCULAR HGB CONC 32.2 g/dL (32.0-36.0); MEAN CORPUSCULAR VOLUME 86 fl (80-97); RED BLOOD COUNT 4.89 10^6/uL (4.35-5.55); RED CELL DISTRIBUTION WIDTH 15.6 % (11.5-14.0); SEGMENTED NEUTROPHILS % (AUTO) 72.1 % (42-78); WHITE BLOOD COUNT 11.1 10^3/uL (4.0-10.5)
[2016-12-24 08:39] VITALS: BP 124/87
--- NOTE | 2016-12-24 11:03 | EKG REPORT ---
SEVERITY:- ABNORMAL ECG - SINUS TACHYCARDIA LEFT ATRIAL ABNORMALITY PROBABLE LEFT VENTRICULAR HYPERTROPHY : Confirmed by: Enrike Sheridan MD 24-Dec-2016 11:02:43
== END 2016-12-24 08:41 | disposition home or self-care (01) ==
LOC: ER 04:06
DX: R06.02 Shortness of breath (principal); Z87.891 Personal history of nicotine dependence
CPT/HCPCS: 93005; 99285; 36415; 82553; 80307; 82803; 82550; 85025; 80053; 84484; 71010; 93010; J3490; S0119; J7030

== ENCOUNTER 2017-05-14 18:49 | Emergency (ER) | payer MEDICAID ==
--- NOTE | 2017-05-14 19:56 | ER Document Report ---
ED General - General Chief Complaint: Back Pain Stated Complaint: SHOULDER PAIN Time Seen by Provider: 05/14/17 19:19 Mode of Arrival: Ambulatory Information source: Patient TRAVEL OUTSIDE OF THE [place] IN LAST 30 DAYS: No - HPI Notes: Patient is a 56-year-old male history of Buerger's disease and COPD and cirrhosis presents emergency department with report of right posterior shoulder pain. The patient is somewhat disoriented on questioning and will not open his eyes at times and tries to defer questioning and has mumbled speech. Patient reports mainly having right posterior shoulder pain, but he states he is also having cold chills and provides little information as to how he got here and where he may be able to be discharged home 2. The patient reports intermittent chest pain chronically, and he states he also has had diffuse pain to his lower back. He has told nursing that he has run out of his oxycodone tablets. Is unclear as to exactly how many days ago his last dose of oxycodone was. Patient states that he stayed outside last night and then got a ride in with a friend, later stating it was a marine that he cannot recall the name of. And emergency contact number is called and there is a disconnected line. Patient states that he was recently in [place] and it had a effusion or congestive heart failure. He states he has had previous heart attacks. - Related Data Allergies/Adverse Reactions: No Known Allergies Allergy (Verified 05/14/17 18:51) Past Medical History - General Information source: Patient Cannot obtain history due to: Altered mental status - Social History Smoking Status: Current Every Day Smoker Frequency of alcohol use: None Drug Abuse: None Lives with: Friend Family History: Reviewed & Not Pertinent, CAD, Hyperlipidemia, Hypertension Patient has suicidal ideation: No Patient has homicidal ideation: No - Past Medical History Cardiac Medical History: Reports: Hx Hypertension Denies: Hx Heart Attack - History of, Hx Hypercholesterolemia Pulmonary Medical History: Reports: Hx COPD Neurological Medical History: Reports: Hx Seizures - Seizures when drinking states he has not drank in 16 years Endocrine Medical History: Denies: Hx Diabetes Mellitus Type 1, Hx Diabetes Mellitus Type 2, Hx Hyperthyroidism, Hx Hypothyroidism Renal/ Medical History: Denies: Hx Peritoneal Dialysis GI Medical History: Denies: Hx Cirrhosis, Hx Gastroesophageal Reflux Disease, Hx Hepatitis Musculoskeltal Medical History: Reports Hx Arthritis, Reports Hx Musculoskeletal Deformity - degenerative disc disease, Reports Hx Musculoskeletal Trauma Psychiatric Medical History: Reports: Hx Bipolar Disorder Traumatic Medical History: Reports: Hx Fractures, Hx Spine Fracture - States "back in 2 places" Infectious Medical History: Denies: Hx Hepatitis Review of Systems - Review of Systems Notes: REVIEW OF SYSTEMS: CONSTITUTIONAL : Reports chills and questions fever. EENT: Denies eye, ear, throat, or mouth pain or symptoms. Denies nasal or sinus congestion or discharge. Denies throat, tongue, or mouth swelling or difficulty swallowing. CARDIOVASCULar - currently denies chest pain. Denies palpitations or racing or irregular heart beat. Denies ankle edema. RESPIRATORY: Denies cough, cold, or chest congestion. Denies shortness of breath, difficulty breathing, or wheezing. GASTROINTESTINAL: Denies abdominal pain or distention. Denies nausea, vomiting , or diarrhea. Denies blood in vomitus, stools, or per rectum. Denies black, tarry stools. Denies constipation. GENITOURINARY: Denies difficulty urinating, painful urination, burning, frequency, blood in urine, or discharge. MUSCULOSKELETAL: Denies neck pain or stiffness. Denies joint pain or swelling. SKIN: Denies rash, lesions or sores. HEMATOLOGIC : Denies easy bruising or bleeding. LYMPHATIC: Denies swollen, enlarged glands. NEUROLOGICAL: Denies headache. Denies weakness or paralysis or loss of use of either side. Denies sensory loss, numbness, or tingling. Denies seizures. Patient reports some difficulty with speech and has intermittently slurred speech. Patient has very poor eye contact and trails off with this conversation starts mumbling but does not focus very well. He describes more of generalized weakness. PSYCHIATRIC: Denies anxiety or stress. Denies depression, suicidal ideation, or homicidal ideation. ALL OTHER SYSTEMS REVIEWED AND NEGATIVE. Dictation was performed using [employer] voice recognition software Physical Exam - Vital signs Vitals: Temp Pulse Resp BP Pulse Ox 97.6 F 98 20 131/77 H 85 L 05/14/17 18:51 05/14/17 18:51 05/14/17 18:51 05/14/17 18:51 05/14/17 18:51 - Notes Notes: PHYSICAL EXAMINATION: GENERAL: no acute distress. HEAD: Atraumatic, normocephalic. EYES: Pupils equal round and reactive to light, extraocular movements intact, sclera anicteric, conjunctiva are normal. ENT: Nares patent, oropharynx clear without exudates. Moist mucous membranes. No obvious dental abscess NECK: Normal range of motion, supple without lymphadenopathy. No meningismus. LUNGS: Breath sounds clear to auscultation bilaterally and equal. No wheezes rales or rhonchi. HEART: Regular rate and rhythm with 1/6 ANURADHA murmur over apex. ABDOMEN: Soft, nontender, nondistended abdomen. No guarding, no rebound. No masses appreciated. Very thin Musculoskeletal: Normal range of motion, no pitting or edema. No cyanosis. Patient reports pain to the mid to upper back region. No crepitance or bony deformity. Patient also reports pain to the right upper shoulder region. NEUROLOGICAL: Cranial nerves grossly intact. Normal sensory, motor exams. Speech is intermittently slurred. Patient is alert to person and place but stated the year was 2015. No gross cerebellar ataxia. Patient is not consistently cooperative with exam. PSYCH: Flat affect SKIN: Warm, Dry, normal turgor, no rashes or lesions noted. Course - Re-evaluation Re-evalutation: 05/15/17 01:09 Patient was gently rehydrated with IV fluids. He was given supplemental potassium and supplemental magnesium. There is a slight CK elevation but a normal MB fractionation, and no proteinuria or blood noted in the urine specimen to denote significant rhabdomyolysis. There was only mild hypokalemia and mild hypomagnesemia. There is no evidence for obvious CHF or cardiac ischemia or acute GA or pneumonia or obvious fracture. Question narcotic withdrawal given some of his symptoms. Patient is informed and needs to follow-up with his regular practitioner for any pain medication needs. There is no Urinary tract infection or severe dehydration or acidosis or evidence for hypoxia or evidence for hypercarbia. Patient's mildly low oxygen saturation noted earlier was factitious related to his Buerger's syndrome. Patient is encouraged to quit smoking. 05/15/17 01:11 - Vital Signs Vital signs: Temp Pulse Resp BP Pulse Ox 97.6 F 98 18 120/72 99 05/14/17 18:51 05/14/17 18:51 05/15/17 00:09 05/15/17 00:09 05/15/17 00:09 - Laboratory Result Diagrams: 05/14/17 20:06 05/14/17 20:06 Laboratory results interpreted by me: 05/14/17 05/14/17 05/14/17 20:06 20:06 20:06 Hgb 12.3 L Hct 37.5 L RDW 19.4 H ABG pH ABG HCO3 ABG Total CO2 Potassium 3.5 L BUN 29 H Glucose 138 H Magnesium 1.4 L AST 65 H Creatine Kinase CK-MB (CK-2) 8.10 H NT-Pro-B Natriuret Pep 4240 H Lipase 448.6 H Digoxin Valproic Acid < 10.0 L 05/14/17 05/14/17 05/14/17 20:06 20:06 20:35 Hgb Hct RDW ABG pH 7.48 H ABG HCO3 29.1 H ABG Total CO2 30.4 H Potassium BUN Glucose Magnesium AST Creatine Kinase 591 H CK-MB (CK-2) NT-Pro-B Natriuret Pep Lipase Digoxin 0.43 L Valproic Acid - EKG Interpretation by Me EKG shows normal: Sinus rhythm Rate: Normal Additional EKG results interpreted by me: 05/14/17 20:42 EKG as interpreted by me showed normal sinus rhythm heart rate of 89, patient has left ventricular hypertrophy and bilateral atrial enlargement. There is no gross STEMI identified there are nonspecific ST segment abnormalities. There is progression of the left ventricular hypertrophy as compared to previous EKG reviewed from 12/24/16. Discharge - Discharge Clinical Impression: Dehydration Shoulder pain Qualifiers: Chronicity: acute Laterality: bilateral Qualified Code(s): M25.511 - Pain in right shoulder; M25.512 - Pain in left shoulder Back strain Qualifiers: Encounter type: initial encounter Qualified Code(s): S39.012A - Strain of muscle, fascia and tendon of lower back, initial encounter Condition: Stable Disposition: HOME, SELF-CARE Instructions: Muscle Strain ([facility]), Dehydration ([facility]) Additional Instructions: Drink plenty of fluids. Cut your dose of metolazone (zaroxolyn) in half.
[2017-05-14 20:20] LABS: ABSOLUTE EOSINOPHILS # (AUTO) 0.2 10^3/uL (0.0-0.6); ABSOLUTE LYMPHOCYTES (AUTO) 1.4 10^3/uL (0.5-4.7); ABSOLUTE MONOCYTES (AUTO) 0.5 10^3/uL (0.1-1.4); ABSOLUTE NEUT (AUTO) 3.2 10^3/uL (1.7-8.2); BASOPHILS % (AUTO) 0.3 % (0-2); EOSINOPHILS % (AUTO) 4.2 % (0-6); HEMATOCRIT 37.5 % (37.9-51.0); HEMOGLOBIN 12.3 g/dL (13.5-17.0); HGB HCT DIFFERENCE -0.6; LYMPHOCYTES % (AUTO) 26.4 % (13-45); MEAN CORPUSCULAR HGB CONC 32.7 g/dL (32.0-36.0); MEAN CORPUSCULAR VOLUME 83 fl (80-97); MONOCYTES % (AUTO) 9.1 % (3-13); RED BLOOD COUNT 4.54 10^6/uL (4.35-5.55); RED CELL DISTRIBUTION WIDTH 19.4 % (11.5-14.0); WHITE BLOOD COUNT 5.3 10^3/uL (4.0-10.5)
[2017-05-14 20:26] LABS: APPEARANCE,URINE CLEAR; BILIRUBIN,URINE NEGATIVE (NEGATIVE); GLUCOSE, URINE NEGATIVE (NEGATIVE); KETONES,URINE NEGATIVE (NEGATIVE); LEUKOCYTE ESTERASE,URINE NEGATIVE (NEGATIVE); NITRITE,URINE NEGATIVE (NEGATIVE); PROTEIN,URINE NEGATIVE (NEGATIVE); URINE SPECIFIC GRAVITY 1.013; UROBILINOGEN,URINE NEGATIVE mg/dL (<2.0)
[2017-05-14 20:48] LABS: URINE BARBITURATES SCREEN NEGATIVE; URINE METHADONE SCREEN NEGATIVE; URINE OPIATES LOW UNCONFIRMED POSITIVE; URINE PHENCYCLIDINE SCREEN NEGATIVE
[2017-05-14 20:58] LABS: ARTERIAL BLOOD BASE EXCESS 5.2 mmol/L; ARTERIAL BLOOD O2 SATURATION 97.8 % (94-98)
[2017-05-14 21:03] LABS: CREATINE KINASE MB 8.1 ng/mL (<4.55); TROPONIN I 0.029 ng/mL
--- NOTE | 2017-05-14 21:04 | RADIOLOGY REPORT (SQ) ---
EXAM DESCRIPTION: CT HEAD WITHOUT COMPLETED DATE/TIME: 05/14/2017 8:51 pm REASON FOR STUDY: altered mental state COMPARISON: None. TECHNIQUE: Axial images acquired through the brain without intravenous contrast. Images reviewed wi th bone, brain and subdural windows. Images stored on PACS. All CT scanners at this facility use dose modulation, iterative reconstruction, and/or weight based d osing when appropriate to reduce radiation dose to as low as reasonably achievable (ALARA). [facility]: Dose Right [facility]: CareDose [facility]: Dose Right [facility]: Teradose 4D [facility]: Smart Gleam RADIATION DOSE: Up-to-date CT equipment and radiation dose reduction techniques were employed. CTDIv ol: 64.6 mGy. DLP: 1163 mGy-cm. mGy. LIMITATIONS: None. FINDINGS: VENTRICLES: Normal size and contour. CEREBRUM: No masses. No hemorrhage. No midline shift. Normal newman/white matter differentiation. N o evidence for acute infarction. CEREBELLUM: No masses. No hemorrhage. No alteration of density. No evidence for acute infarction. EXTRAAXIAL SPACES: No fluid collections. No masses. ORBITS AND GLOBE: No intra- or extraconal masses. Normal contour of globe without masses. CALVARIUM: No fracture. PARANASAL SINUSES: No fluid or mucosal thickening. SOFT TISSUES: No mass or hematoma. OTHER: No other significant finding. IMPRESSION: No acute intracranial abnormality. No skull fracture. TECHNICAL DOCUMENTATION: JOB ID: [id number] Quality ID # [id number]: Final reports with documentation of one or more dose reduction techniques (e.g., Au tomated exposure control, adjustment of the mA and/or kV according to patient size, use of iterative reconstruction technique) 2010 [employer]- All Rights Reserved
[2017-05-14 21:15] LABS: ALANINE AMINOTRANSFERASE 47 U/L (21-72); ALBUMIN 3.9 g/dL (3.5-5.0); ALKALINE PHOSPHATASE 105 U/L (38-126); ANION GAP 14 (5-19); ASPARTATE AMINO TRANSFERASE 65 U/L (17-59); BILIRUBIN,DIRECT 0.4 mg/dL (0.0-0.4); BILIRUBIN,TOTAL 0.6 mg/dL (0.2-1.3); BLOOD UREA NITROGEN 29 mg/dL (7-20); CALCIUM 9.4 mg/dL (8.4-10.2); CARBON DIOXIDE 26 mmol/L (22-30); CHLORIDE 98 mmol/L (98-107); CREATININE RESULT 0.76 mg/dL (0.52-1.25); GLUCOSE 138 mg/dL (75-110); LIPASE 448.6 U/L (23-300); MAGNESIUM 1.4 mg/dL (1.6-2.3); POTASSIUM 3.5 mmol/L (3.6-5.0); SODIUM 138.2 mmol/L (137-145); TOTAL PROTEIN 7.2 g/dL (6.3-8.2)
[2017-05-14 21:22] LABS: ALCOHOL < 10 mg/dL (NONE DETECTED); VALPROIC ACID < 10.0 ug/mL (50.0-120.0)
--- NOTE | 2017-05-14 21:33 | RADIOLOGY REPORT (SQ) ---
EXAM DESCRIPTION: CHEST PA/LAT COMPLETED DATE/TIME: 05/14/2017 9:15 pm REASON FOR STUDY: R upper back pain, question hx effusion COMPARISON: 11/27/2016 NUMBER OF VIEWS: Two view. TECHNIQUE: Frontal and lateral radiographic views of the chest acquired. LIMITATIONS: None. FINDINGS: LUNGS AND PLEURA: No opacities, masses or pneumothorax. No pleural effusion. Attenuated bl ood vessels and flattened lio-diaphragms. MEDIASTINUM AND HILAR STRUCTURES: No masses. No contour abnormalities. HEART AND VASCULAR STRUCTURES: Heart normal in size and contour. No evidence for failure. BONES: No acute findings. HARDWARE: None in the chest. OTHER: No other significant finding. IMPRESSION: COPD. NO ACUTE RADIOGRAPHIC FINDING IN THE CHEST. TECHNICAL DOCUMENTATION: JOB ID: [id number] [employer]- All Rights Reserved
--- NOTE | 2017-05-14 21:34 | RADIOLOGY REPORT (SQ) ---
EXAM DESCRIPTION: SHOULDER RIGHT 2 OR MORE VIEWS COMPLETED DATE/TIME: 05/14/2017 9:15 pm REASON FOR STUDY: R shoulder pain COMPARISON: None. NUMBER OF VIEWS: Three views. TECHNIQUE: Internal rotation, external rotation, and Y view images acquired of the right shoulder. LIMITATIONS: None. FINDINGS: MINERALIZATION: Normal. BONES: No acute fracture or dislocation. No worrisome bone lesions. JOINTS: No dislocation. VISUALIZED LUNGS AND RIBS: No pneumothorax. No rib fracture. SOFT TISSUES: No radiopaque foreign body. OTHER: No other significant finding. IMPRESSION: NEGATIVE STUDY OF THE RIGHT SHOULDER. NO RADIOGRAPHIC EVIDENCE OF ACUTE INJURY. TECHNICAL DOCUMENTATION: JOB ID: [id number] [employer]- All Rights Reserved
[2017-05-14] MEDS ORDERED: POTASSI CL 20 MEQ/NS 1L 1,000 ML IV ONE (22:01)
[2017-05-14] MEDS ORDERED: MAGNESIUM OXIDE 400 MG TABLET PO ONE (22:02)
[2017-05-14 23:46] LABS: AMYLASE 110 U/L (30-110); CREATINE KINASE 591 U/L (55-170)
[2017-05-15 00:10] VITALS: BP 120/72
--- NOTE | 2017-05-15 10:23 | EKG REPORT ---
SEVERITY:- ABNORMAL ECG - SINUS RHYTHM EVELIN, CONSIDER BIATRIAL ABNORMALITIES LVH WITH SECONDARY REPOLARIZATION ABNORMALITY LATERAL INFARCT, AGE INDETERMINATE ANTERIOR ST ELEVATION, PROBABLY DUE TO LVH BORDERLINE PROLONGED QT INTERVAL : Confirmed by: Enrike Sheridan MD 15-May-2017 10:22:57
== END 2017-05-15 01:36 | disposition home or self-care (01) ==
LOC: ER 18:49
DX: E86.0 Dehydration (principal); M25.511 Pain in right shoulder; M25.512 Pain in left shoulder; S39.012A Strain of muscle, fascia and tendon of lower back, initial encounter; X58.XXXA Exposure to other specified factors, initial encounter; F17.200 Nicotine dependence, unspecified, uncomplicated; J44.9 Chronic obstructive pulmonary disease, unspecified; I10 Essential (primary) hypertension; E87.6 Hypokalemia; E83.42 Hypomagnesemia
CPT/HCPCS: 93005; 99284; 96365; 96366; 36415; 82553; 80307 ×2; 82140; 82150; 82803; 82550; 80162; 83690; 83735; 85025; 80053; 81001; 84484; 80164; 83605; 83880; 71020; 73030; 70450; 93010; J3490; J3480

== ENCOUNTER 2018-02-10 08:47 | Emergency (ER) | payer MEDICAID ==
[2018-02-10] MEDS ORDERED: METHYLPREDNISOLONE INJ 125 MG/2 ML SDV IV ONE (08:58)
[2018-02-10] MEDS ORDERED: IPRATROPIUM/ALBUTEROL 0.5-2.5 MG/3 ML AMPUL NEB ONE (08:59)
[2018-02-10] MEDS ORDERED: ASPIRIN 325 MG TABLET PO ONE (09:00)
[2018-02-10] MEDS: MAGNESIUM SULFATE/D5W 1 GM/100 ML RTUPB IV SCH ×2 (09:12→10:31)
[2018-02-10 09:16] LABS: ABSOLUTE EOSINOPHILS # (AUTO) 0.7 10^3/uL (0.0-0.6); ABSOLUTE LYMPHOCYTES (AUTO) 1.2 10^3/uL (0.5-4.7); ABSOLUTE MONOCYTES (AUTO) 0.6 10^3/uL (0.1-1.4); ABSOLUTE NEUT (AUTO) 4.4 10^3/uL (1.7-8.2); BASOPHILS % (AUTO) 0.1 % (0-2); EOSINOPHILS % (AUTO) 9.6 % (0-6); HEMOGLOBIN 13.8 g/dL (13.5-17.0); LYMPHOCYTES % (AUTO) 18.1 % (13-45); MEAN CORPUSCULAR HEMOGLOBIN 30.7 pg (27.0-33.4); MEAN CORPUSCULAR HGB CONC 33.7 g/dL (32.0-36.0); MEAN CORPUSCULAR VOLUME 91 fl (80-97); MONOCYTES % (AUTO) 8.4 % (3-13); PLATELET COUNT 190 10^3/uL (150-450); RED BLOOD COUNT 4.49 10^6/uL (4.35-5.55); RED CELL DISTRIBUTION WIDTH 13.7 % (11.5-14.0); SEGMENTED NEUTROPHILS % (AUTO) 63.8 % (42-78); TOTAL CELLS COUNTED % (AUTO) 100 %; WHITE BLOOD COUNT 6.8 10^3/uL (4.0-10.5)
--- NOTE | 2018-02-10 09:18 | ER Document Report ---
ED General - General Stated Complaint: SHORTNESS OF BREATH Time Seen by Provider: 02/10/18 08:56 Mode of Arrival: Medic Information source: Patient, [facility] Records Cannot obtain history due to: Mentally challenged Notes: 57-year-old male with a history of hypertension, COPD, CAD, previous ND presents via EMS from home with complaint of shortness of breath. Per EMS upon their arrival they initially thought patient was unresponsive but he began talking when they began to interact with him. Upon their arrival they state he was tachypneic and had diffuse wheezing but not hypoxic. Girlfriend was at the house and states that his moaning and babbling talking is his baseline. Patient had an ND in May 2017 but denies any stent placement at that time. He states he has been noncompliant with his medication for two months. He is still smoking. Patient states shortness of breath started yesterday evening. TRAVEL OUTSIDE OF THE [place] IN LAST 30 DAYS: No - HPI Onset: Yesterday Onset/Duration: Gradual Quality of pain: No pain Severity: Mild Associated symptoms: Shortness of breath - smoking, Slow to respond Exacerbated by: Other - smoking - Related Data Allergies/Adverse Reactions: No Known Allergies Allergy (Verified 02/10/18 09:15) Past Medical History - General Information source: Patient - Social History Smoking Status: Current Every Day Smoker Cigarette use (# per day): Yes - 10-12 Chew tobacco use (# tins/day): No Smoking Education Provided: Yes Frequency of alcohol use: None Drug Abuse: Cocaine, Methamphetamine Lives with: Spouse/Significant other Family History: Reviewed & Not Pertinent, CAD, Hyperlipidemia, Hypertension Patient has suicidal ideation: No Patient has homicidal ideation: No - Past Medical History Cardiac Medical History: Reports: Hx Hypertension Denies: Hx Heart Attack - History of, Hx Hypercholesterolemia Pulmonary Medical History: Reports: Hx COPD Neurological Medical History: Reports: Hx Seizures - Seizures when drinking states he has not drank in 16 years Endocrine Medical History: Denies: Hx Diabetes Mellitus Type 1, Hx Diabetes Mellitus Type 2, Hx Hyperthyroidism, Hx Hypothyroidism Renal/ Medical History: Denies: Hx Peritoneal Dialysis GI Medical History: Denies: Hx Cirrhosis, Hx Gastroesophageal Reflux Disease, Hx Hepatitis Musculoskeltal Medical History: Reports Hx Arthritis, Reports Hx Musculoskeletal Deformity - degenerative disc disease, Reports Hx Musculoskeletal Trauma Psychiatric Medical History: Reports: Hx Bipolar Disorder Traumatic Medical History: Reports: Hx Fractures, Hx Spine Fracture - States "back in 2 places" Infectious Medical History: Denies: Hx Hepatitis Review of Systems - Review of Systems Constitutional: Chills. denies: Fever EENT: No symptoms reported Cardiovascular: denies: Chest pain, Palpitations, Syncope Respiratory: Cough, Short of breath, Wheezing Gastrointestinal: No symptoms reported Genitourinary: No symptoms reported Male Genitourinary: No symptoms reported Musculoskeletal: No symptoms reported Skin: No symptoms reported Neurological/Psychological: Confusion Physical Exam - Vital signs Vitals: Temp Pulse Resp BP Pulse Ox 98.1 F 68 16 124/78 100 02/10/18 08:48 02/10/18 08:48 02/10/18 08:48 02/10/18 08:48 02/10/18 08:48 - General General appearance: Appears well, Alert, Other - unkept. unclear speech. patient reports its because he doesnt have his teeth In distress: Mild - HEENT Head: Normocephalic, Atraumatic Eyes: Normal Conjunctiva: Normal Pupils: PERRL Nerve palsy: No Nasal: Normal Mucous membranes: Normal Pharynx: Normal - Respiratory Respiratory status: No respiratory distress, Respiratory distress, Tachypnea. No: Agonal respirations, Cyanosis, Tripod position Chest status: Nontender, Accessory muscle use Breath sounds: Normal, Decreased air movement, Wheezing Chest palpation: Normal - Cardiovascular Rhythm: Regular Heart sounds: Normal auscultation Murmur: No Pulses: Normal: Radial, Dorsalis pedis Normal capillary refill: Yes - Abdominal Inspection: Normal Distension: No distension Bowel sounds: Normal Tenderness: Nontender Organomegaly: No organomegaly - Back Back: Normal, Nontender - Extremities General upper extremity: Normal inspection, Nontender, Normal color, Normal ROM , Normal temperature General lower extremity: Normal inspection, Nontender, Normal color, Normal ROM , Normal temperature, Normal weight bearing. No: Alina's sign - Neurological Neuro grossly intact: Yes Cognition: Normal Orientation: AAOx4 Onelia Coma Scale Eye Opening: Spontaneous [place]uthrie Coma Scale Verbal: Oriented [place] Coma Scale Motor: Obeys Commands Guthrie Coma Scale Total: 15 Speech: Normal Motor strength normal: LUE, RUE, LLE, RLE Sensory: Normal - Psychological Associated symptoms: Normal affect, Normal mood, Anxious, Psychomotor agitation. No: Auditory hallucinations, Visual hallucinations - Skin Skin Temperature: Warm - patient's legs and feet are covered with dirt Skin Moisture: Dry Skin Color: Normal Course - Re-evaluation Re-evalutation: Laboratory 02/10/18 02/10/18 02/10/18 09:00 09:00 09:00 WBC 6.8 RBC 4.49 Hgb 13.8 Hct 41.0 MCV 91 MCH 30.7 MCHC 33.7 RDW 13.7 Plt Count 190 Seg Neutrophils % 63.8 Lymphocytes % 18.1 Monocytes % 8.4 Eosinophils % 9.6 H Basophils % 0.1 Absolute Neutrophils 4.4 Absolute Lymphocytes 1.2 Absolute Monocytes 0.6 Absolute Eosinophils 0.7 H Absolute Basophils 0.0 Carbonic Acid HCO3/H2CO3 Ratio ABG pH ABG pCO2 ABG pO2 ABG HCO3 ABG Total CO2 ABG O2 Saturation ABG Base Excess FiO2 Sodium 138.4 Potassium 4.3 Chloride 101 Carbon Dioxide 30 Anion Gap 7 BUN 9 Creatinine 0.85 Est GFR ( Amer) > 60 Est GFR (Non-Af Amer) > 60 Glucose 99 Lactic Acid Calcium 9.7 Total Bilirubin 0.6 Direct Bilirubin 0.1 Neonat Total Bilirubin Not Reportable Neonat Direct Bilirubin Not Reportable Neonat Indirect Bili Not Reportable AST 17 ALT 22 Alkaline Phosphatase 66 Ammonia Creatine Kinase 131 CK-MB (CK-2) 1.80 Troponin I 0.016 NT-Pro-B Natriuret Pep 1820 H Total Protein 6.4 Albumin 4.3 Urine Color Urine Appearance Urine pH Ur Specific [place] Urine Protein Urine Glucose (UA) Urine Ketones Urine Blood Urine Nitrite Urine Bilirubin Urine Urobilinogen Ur Leukocyte Esterase Urine WBC (Auto) Urine RBC (Auto) Urine Bacteria (Auto) Urine Mucus (Auto) Urine Ascorbic Acid Urine Opiates Screen Urine Methadone Screen Ur Barbiturates Screen Ur Phencyclidine Scrn Ur Amphetamines Screen U Benzodiazepines Scrn Urine Cocaine Screen U Marijuana (THC) Screen 02/10/18 02/10/18 02/10/18 09:00 10:23 10:23 WBC RBC Hgb Hct MCV MCH MCHC RDW Plt Count Seg Neutrophils % Lymphocytes % Monocytes % Eosinophils % Basophils % Absolute Neutrophils Absolute Lymphocytes Absolute Monocytes Absolute Eosinophils Absolute Basophils Carbonic Acid 1.19 HCO3/H2CO3 Ratio 20:1 ABG pH 7.41 ABG pCO2 39.4 ABG pO2 73.9 L ABG HCO3 24.6 ABG Total CO2 25.8 ABG O2 Saturation 95.1 ABG Base Excess 0.1 FiO2 4L Sodium Potassium Chloride Carbon Dioxide Anion Gap BUN Creatinine Est GFR ( Amer) Est GFR (Non-Af Amer) Glucose Lactic Acid 1.1 Calcium Total Bilirubin Direct Bilirubin Neonat Total Bilirubin Neonat Direct Bilirubin Neonat Indirect Bili AST ALT Alkaline Phosphatase Ammonia < 8.7 L Creatine Kinase CK-MB (CK-2) Troponin I NT-Pro-B Natriuret Pep Total Protein Albumin Urine Color Urine Appearance Urine pH Ur Specific [place] Urine Protein Urine Glucose (UA) Urine Ketones Urine Blood Urine Nitrite Urine Bilirubin Urine Urobilinogen Ur Leukocyte Esterase Urine WBC (Auto) Urine RBC (Auto) Urine Bacteria (Auto) Urine Mucus (Auto) Urine Ascorbic Acid Urine Opiates Screen Urine Methadone Screen Ur Barbiturates Screen Ur Phencyclidine Scrn Ur Amphetamines Screen U Benzodiazepines Scrn Urine Cocaine Screen U Marijuana (THC) Screen 02/10/18 02/10/18 10:23 10:23 WBC RBC Hgb Hct MCV MCH MCHC RDW Plt Count Seg Neutrophils % Lymphocytes % Monocytes % Eosinophils % Basophils % Absolute Neutrophils Absolute Lymphocytes Absolute Monocytes Absolute Eosinophils Absolute Basophils Carbonic Acid HCO3/H2CO3 Ratio ABG pH ABG pCO2 ABG pO2 ABG HCO3 ABG Total CO2 ABG O2 Saturation ABG Base Excess FiO2 Sodium Potassium Chloride Carbon Dioxide Anion Gap BUN Creatinine Est GFR ( Amer) Est GFR (Non-Af Amer) Glucose Lactic Acid Calcium Total Bilirubin Direct Bilirubin Neonat Total Bilirubin Neonat Direct Bilirubin Neonat Indirect Bili AST ALT Alkaline Phosphatase Ammonia Creatine Kinase CK-MB (CK-2) Troponin I NT-Pro-B Natriuret Pep Total Protein Albumin Urine Color YELLOW Urine Appearance CLEAR Urine pH 5.0 Ur Specific [place] 1.013 Urine Protein NEGATIVE Urine Glucose (UA) NEGATIVE Urine Ketones NEGATIVE Urine Blood NEGATIVE Urine Nitrite NEGATIVE Urine Bilirubin NEGATIVE Urine Urobilinogen NEGATIVE Ur Leukocyte Esterase NEGATIVE Urine WBC (Auto) 1 Urine RBC (Auto) 0 Urine Bacteria (Auto) TRACE Urine Mucus (Auto) RARE Urine Ascorbic Acid NEGATIVE Urine Opiates Screen NEGATIVE Urine Methadone Screen NEGATIVE Ur Barbiturates Screen NEGATIVE Ur Phencyclidine Scrn NEGATIVE Ur Amphetamines Screen UNCONFIRMED POSITIVE U Benzodiazepines Scrn NEGATIVE Urine Cocaine Screen UNCONFIRMED POSITIVE U Marijuana (THC) Screen NEGATIVE Chest X-Ray 02/10/18 08:57 IMPRESSION: Possible left effusion. Head CT 02/10/18 10:28 IMPRESSION: NORMAL BRAIN CT WITHOUT CONTRAST. EVIDENCE OF ACUTE STROKE: NO. Chest CT 02/10/18 10:30 IMPRESSION: NO SIGNIFICANT FINDING ON NON-CONTRASTED CHEST CT. 02/10/18 10:23 Bedside ultrasound of the heart and lungs were was performed. Ultrasound does not show any pericardial effusion. There is no pleural effusion seen on ultrasound. He does have poor cardiac contractility. 02/11/18 07:21 57-year-old male with a history of hypertension, COPD, CAD, previous ND presents via EMS from home with complaint of shortness of breath. Per EMS upon their arrival they initially thought patient was unresponsive but he began talking when they began to interact with him. Upon their arrival they state he was tachypneic and had diffuse wheezing but not hypoxic. Girlfriend was at the house and states that his moaning and babbling talking is his baseline. Patient received breathing treatments, Solu-Medrol, magnesium and reported improvement of his shortness of breath. Urine tox significant for cocaine and amphetamines. He was monitored for over 5 hours in the emergency department. He was reevaluated multiple times and continues to be alert and awake. Patient ambulated without difficulty and tolerated fluids prior to discharge. Patient counselled regarding cessation for 4 minutes. - Vital Signs Vital signs: Temp Pulse Resp BP Pulse Ox 98.3 F 68 13 119/80 98 02/10/18 14:00 02/10/18 08:48 02/10/18 14:00 02/10/18 14:00 02/10/18 14:00 - Laboratory Result Diagrams: 02/10/18 09:00 02/10/18 09:00 Laboratory results interpreted by me: 02/10/18 02/10/18 02/10/18 09:00 09:00 10:23 Eosinophils % 9.6 H Absolute Eosinophils 0.7 H ABG pO2 Ammonia < 8.7 L NT-Pro-B Natriuret Pep 1820 H 02/10/18 10:23 Eosinophils % Absolute Eosinophils ABG pO2 73.9 L Ammonia NT-Pro-B Natriuret Pep Procedures - Ultrasound/Bedside Ultrasound/Bedside Time completed: 10:24 Ultrasound: Other - Cardiac ultrasoundno pericardial effusion. Poor global function. Ultrasound of the lung showed multiple B-lines that could be indicative of fluid overload. No elver pleural effusion seen on ultrasound. Discharge - Discharge Clinical Impression: Opiate abuse, episodic, COPD exacerbation Condition: Good Disposition: HOME, SELF-CARE Instructions: Chronic Obstructive Lung Disease ([facility]), Cocaine Abuse ([facility]), Drug Toxicity ([facility]) Prescriptions: Prednisone [Deltasone 20 mg Tablet] 3 tab PO DAILY 5 Days #15 tablet
--- NOTE | 2018-02-10 09:24 | EKG REPORT ---
SEVERITY:- DEFECTIVE ECG - SINUS RHYTHM EVELIN, LVH WITH SECONDARY REPOLARIZATION ABNORMALITY LIMB LEADS REVERSED BORDERLINE PROLONGED QT INTERVAL : Confirmed by: Enrike Sheridan MD 10-Feb-2018 09:23:58
[2018-02-10 09:37] LABS: ALANINE AMINOTRANSFERASE 22 U/L (21-72); ALBUMIN 4.3 g/dL (3.5-5.0); ALKALINE PHOSPHATASE 66 U/L (38-126); ANION GAP 7 (5-19); ASPARTATE AMINO TRANSFERASE 17 U/L (17-59); BILIRUBIN,DIRECT 0.1 mg/dL (0.0-0.4); BILIRUBIN,TOTAL 0.6 mg/dL (0.2-1.3); BLOOD UREA NITROGEN 9 mg/dL (7-20); CALCIUM 9.7 mg/dL (8.4-10.2); CARBON DIOXIDE 30 mmol/L (22-30); CHLORIDE 101 mmol/L (98-107); CREATINE KINASE 131 U/L (55-170); GLUCOSE 99 mg/dL (75-110); POTASSIUM 4.3 mmol/L (3.6-5.0); SODIUM 138.4 mmol/L (137-145); TOTAL PROTEIN 6.4 g/dL (6.3-8.2)
[2018-02-10 09:49] LABS: CREATINE KINASE MB 1.8 ng/mL (<4.55); TROPONIN I 0.016 ng/mL
--- NOTE | 2018-02-10 09:53 | RADIOLOGY REPORT (SQ) ---
EXAM DESCRIPTION: CHEST SINGLE VIEW COMPLETED DATE/TIME: 02/10/2018 9:39 am REASON FOR STUDY: sob COMPARISON: 05/14/2017 EXAM PARAMETERS: NUMBER OF VIEWS: One view. TECHNIQUE: Single frontal radiographic view of the chest acquired. RADIATION DOSE: NA LIMITATIONS: None. FINDINGS: LUNGS AND PLEURA: Blunting of the left CP angle. Possible effusion. Right lung is clear. MEDIASTINUM AND HILAR STRUCTURES: No masses. Contour normal. HEART AND VASCULAR STRUCTURES: Heart normal in size. Normal vasculature. BONES: No acute findings. HARDWARE: None in the chest. OTHER: No other significant finding. IMPRESSION: Possible left effusion. TECHNICAL DOCUMENTATION: JOB ID: [id number] [employer]- All Rights Reserved Reading location - IP/workstation name: [email or web address]
[2018-02-10] MEDS ORDERED: FUROSEMIDE INJ/PF 40 MG/4 ML SDV IV ONE (10:25)
[2018-02-10 10:40] LABS: ARTERIAL BLOOD BASE EXCESS 0.1 mmol/L; ARTERIAL BLOOD H2CO3 1.19 mmol/L (1.05-1.35); ARTERIAL BLOOD HCO3 24.6 mmol/L (20-26); ARTERIAL BLOOD O2 SATURATION 95.1 % (94-98); ARTERIAL BLOOD PCO2 39.4 mmHg (35-45); ARTERIAL BLOOD PH 7.41 (7.35-7.45); ARTERIAL BLOOD PO2 73.9 mmHg (80-100); ARTERIAL BLOOD TOTAL CO2 25.8 mmol/L (23-27)
[2018-02-10 10:46] LABS: ARTERIAL BLOOD FIO2 4L
[2018-02-10 10:56] LABS: APPEARANCE,URINE CLEAR; BILIRUBIN,URINE NEGATIVE (NEGATIVE); COLOR,URINE YELLOW; GLUCOSE, URINE NEGATIVE (NEGATIVE); KETONES,URINE NEGATIVE (NEGATIVE); URINE SPECIFIC GRAVITY 1.013
[2018-02-10 10:57] LABS: LEUKOCYTE ESTERASE,URINE NEGATIVE (NEGATIVE); NITRITE,URINE NEGATIVE (NEGATIVE); PROTEIN,URINE NEGATIVE (NEGATIVE); UROBILINOGEN,URINE NEGATIVE mg/dL (<2.0)
[2018-02-10 11:06] LABS: URINE AMPHETAMINES SCREEN UNCONFIRMED POSITIVE; URINE BARBITURATES SCREEN NEGATIVE; URINE BENZODIAZEPINES SCREEN NEGATIVE; URINE COCAINE SCREEN UNCONFIRMED POSITIVE; URINE MARIJUANA (THC) SCREEN NEGATIVE; URINE METHADONE SCREEN NEGATIVE; URINE PHENCYCLIDINE SCREEN NEGATIVE
--- NOTE | 2018-02-10 11:36 | RADIOLOGY REPORT (SQ) ---
EXAM DESCRIPTION: CT HEAD WITHOUT COMPLETED DATE/TIME: 02/10/2018 11:27 am REASON FOR STUDY: ams COMPARISON: None. TECHNIQUE: Axial images acquired through the brain without intravenous contrast. Images reviewed wi th bone, brain and subdural windows. Additional sagittal and coronal reconstructions were generated. Images stored on PACS. All CT scanners at this facility use dose modulation, iterative reconstruction, and/or weight based d osing when appropriate to reduce radiation dose to as low as reasonably achievable (ALARA). [facility]: Dose Right [facility]: CareDose [facility]: Dose Right [facility]: Teradose 4D [facility]: [employer] RADIATION DOSE: CT Rad equipment meets quality standard of care and radiation dose reduction techniq ues were employed. CTDIvol: 53.2 mGy. DLP: 1017 mGy-cm. mGy. LIMITATIONS: None. FINDINGS: VENTRICLES: Normal size and contour. CEREBRUM: No masses. No hemorrhage. No midline shift. No evidence for acute infarction. Normal gra y/white matter differentiation. No areas of low density in the white matter. CEREBELLUM: No masses. No hemorrhage. No alteration of density. No evidence for acute infarction. EXTRAAXIAL SPACES: No fluid collections. No masses. ORBITS AND GLOBE: No intra- or extraconal masses. Normal contour of globe without masses. CALVARIUM: No fracture. PARANASAL SINUSES: Ethmoid sinus disease. SOFT TISSUES: No mass or hematoma. OTHER: No other significant finding. IMPRESSION: NORMAL BRAIN CT WITHOUT CONTRAST. EVIDENCE OF ACUTE STROKE: NO. COMMENT: Quality ID # 436: Final reports with documentation of one or more dose reduction techniques (e.g., Automated exposure control, adjustment of the mA and/or kV according to patient size, use of iterative reconstruction technique) TECHNICAL DOCUMENTATION: JOB ID: [id number] [employer]- All Rights Reserved Reading location - IP/workstation name: [email or web address]
--- NOTE | 2018-02-10 11:37 | RADIOLOGY REPORT (SQ) ---
EXAM DESCRIPTION: CT CHEST WITHOUT COMPLETED DATE/TIME: 02/10/2018 11:27 am REASON FOR STUDY: ? pleural effusion COMPARISON: Chest radiograph TECHNIQUE: CT scan performed of the chest without intravenous contrast. Images reviewed with lung, soft tissue and bone windows. Reconstructed coronal and sagittal MPR images reviewed. All images st ored on PACS. All CT scanners at this facility use dose modulation, iterative reconstruction, and/or weight based d osing when appropriate to reduce radiation dose to as low as reasonably achievable (ALARA). [facility]: Dose Right [facility]: CareDose [facility]: Dose Right [facility]: Teradose 4D [facility]: [employer] RADIATION DOSE: CT Rad equipment meets quality standard of care and radiation dose reduction techniq ues were employed. CTDIvol: 14.4 mGy. DLP: 615 mGy-cm. mGy. LIMITATIONS: No technical limitations. FINDINGS: LUNGS AND PLEURA: No masses, infiltrates, pneumothorax. No pleural effusions, calcificati ons. HILAR AND MEDIASTINAL STRUCTURES: No identified masses or abnormal nodes. No obvious aneurysm. HEART AND VASCULAR STRUCTURES: No aneurysm. No pericardial effusion. UPPER ABDOMEN: No significant findings. Limited exam. THYROID AND OTHER SOFT TISSUES: No masses. No adenopathy. BONES: No significant finding. HARDWARE: None in the chest. OTHER: No other significant findings. IMPRESSION: NO SIGNIFICANT FINDING ON NON-CONTRASTED CHEST CT. TECHNICAL DOCUMENTATION: JOB ID: [id number] Quality ID # [id number]: Final reports with documentation of one or more dose reduction techniques (e.g., Au tomated exposure control, adjustment of the mA and/or kV according to patient size, use of iterative reconstruction technique) 2010 [employer]- All Rights Reserved Reading location - IP/workstation name: [email or web address]
--- NOTE | 2018-02-10 13:30 | EKG REPORT ---
SEVERITY:- ABNORMAL ECG - SINUS RHYTHM LVH WITH SECONDARY REPOLARIZATION ABNORMALITY : Confirmed by: Enrike Sheridan MD 10-Feb-2018 13:30:16
[2018-02-10 14:44] VITALS: BP 119/80
== END 2018-02-10 14:43 | disposition home or self-care (01) ==
LOC: ER 08:47
DX: J44.1 Chronic obstructive pulmonary disease with (acute) exacerbation (principal); F11.10 Opioid abuse, uncomplicated; R68.83 Chills (without fever); I10 Essential (primary) hypertension; F17.210 Nicotine dependence, cigarettes, uncomplicated; I25.2 Old myocardial infarction
CPT/HCPCS: 93005; 99406; 94640; 99285; 96375; 96365; 96366; 36415; 82553; 82140; 82803; 82550; 85025; 80053; 84484; 81001; 80307; 83605; 83880; 71045; 70450; 71250; 93010; J1940; J2930; J3475; J7620

== ENCOUNTER 2018-02-15 08:14 | Emergency (ER) | payer MEDICAID ==
[2018-02-15] MEDS ORDERED: ASPIRIN 81 MG TABLET, CHEWABLE PO ONE (08:53)
[2018-02-15] MEDS ORDERED: IPRATROPIUM/ALBUTEROL 0.5-2.5 MG/3 ML AMPUL NEB ONE (08:54)
[2018-02-15] MEDS ORDERED: METHYLPREDNISOLONE INJ 125 MG/2 ML SDV IV ONE (08:54)
--- NOTE | 2018-02-15 08:58 | ER Document Report ---
ED Respiratory Problem - General Chief Complaint: Shortness Of Breath Stated Complaint: DIFFICULTY BREATHING Time Seen by Provider: 02/15/18 08:42 Notes: 57-year-old male history of COPD cirrhosis drug abuse homelessness presents to the ER complaining of shortness of breath. Patient stated he has been out of his meds for a month now. He is homeless. He states he began having shortness of breath the last few days. Was worse last night. He denies any fever chills does have a nonproductive cough. Occasional nausea but no vomiting no diaphoresis. Denies change chest pain to some occasional tightness. The patient stated he has not had his nebulizers or inhalers. He continues to smoke. Occasional cocaine abuse. The patient denies any falls or trauma. Calf pain or leg swelling denies black bloody or tarry stools. TRAVEL OUTSIDE OF THE [place] IN LAST 30 DAYS: No - Related Data Allergies/Adverse Reactions: No Known Allergies Allergy (Verified 02/15/18 08:22) Past Medical History - Social History Smoking Status: Current Every Day Smoker Family History: Reviewed & Not Pertinent, CAD, Hyperlipidemia, Hypertension - Past Medical History Cardiac Medical History: Reports: Hx Hypertension Denies: Hx Heart Attack - History of, Hx Hypercholesterolemia Pulmonary Medical History: Reports: Hx COPD Neurological Medical History: Reports: Hx Seizures - Seizures when drinking states he has not drank in 16 years Endocrine Medical History: Denies: Hx Diabetes Mellitus Type 1, Hx Diabetes Mellitus Type 2, Hx Hyperthyroidism, Hx Hypothyroidism Renal/ Medical History: Denies: Hx Peritoneal Dialysis GI Medical History: Denies: Hx Cirrhosis, Hx Gastroesophageal Reflux Disease, Hx Hepatitis Musculoskeltal Medical History: Reports Hx Arthritis, Reports Hx Musculoskeletal Deformity - degenerative disc disease, Reports Hx Musculoskeletal Trauma Psychiatric Medical History: Reports: Hx Bipolar Disorder Traumatic Medical History: Reports: Hx Fractures, Hx Spine Fracture - States "back in 2 places" Infectious Medical History: Denies: Hx Hepatitis Review of Systems - Review of Systems Constitutional: denies: Chills, Fever EENT: denies: Throat pain Cardiovascular: denies: Chest pain Respiratory: Cough, Short of breath, Wheezing Gastrointestinal: Nausea. denies: Diarrhea, Vomiting, Constipation Genitourinary: denies: Dysuria, Hematuria -: Yes All other systems reviewed and negative Physical Exam - Vital signs Vitals: Temp Pulse Resp BP Pulse Ox 97.9 F 111 H 24 H 128/93 H 97 02/15/18 08:30 02/15/18 08:30 02/15/18 08:30 02/15/18 08:30 02/15/18 08:30 - Notes Notes: GENERAL_APPEARANCE: well_nourished but thin: Alert, cooperative, no_acute_ distress, no_obvious_discomfort. VITALS: reviewed, see vital signs table. HEAD: no_swelling\\tenderness on the head. EYES: PERRL, EOMI, conjunctiva_clear. NOSE: no_nasal_discharge. MOUTH: (-)decreased moisture. THROAT: no_throat_inflammation, no_airway_obstruction. no_lymphadenopathy NECK: supple, no_neck_tenderness, (-)thyromegaly. BACK: no_back_tenderness. CHEST_WALL: no_chest_tenderness. LUNGS: Scattered_wheezing, no_rales, no_rhonchi, (-)accessory muscle use, good air exchange bilateral. HEART: normal_rate, normal_rhythm, normal_S1, normal_S2, (-)S3, (-)S4, no_ murmur, no_rub. ABDOMEN: normal_BS, soft, no_abd_tenderness, (-)guarding, (-)rebound, no_ organomegaly, no_abd_masses. EXTREMITIES: good pulses in all_extremities, no_swelling\\tenderness in the extremities, no_edema. SKIN: warm, dry, good_color, no_rash. Telangiectasias and items consistent with liver disease MENTAL_STATUS: speech_clear, oriented_X_3, normal_affect, responds_ appropriately to questions. NEURO: Neg Motor or Sensory Deficits on exam, CN 2-12 intact, DTR 2+ symmetric x 4, No cerbellar signs Course - Re-evaluation Re-evalutation: 02/15/18 08:57 57-year-old male history of COPD cirrhosis homelessness presents with shortness of breath. Patient was given aerosol treatments and steroids. Will check some generalized lab work he has had an MT in the past with a EKG and troponin patient is without any kind home medications. As in a poor social situation. Likely is having a generalized COPD exacerbation. 02/15/18 13:33 Repeat troponin is unchanged. Patient is homeless. He is asking for chronic pain medicine for his back. States he is out of all his pain medicine is due to go to a pain management doctor next month in [place]. I spoke to him that I could not prescribe any narcotic pain medicine for chronic pain. Will prescribe him steroids for his COPD and an inhaler. The patient will be discharged home. - Vital Signs Vital signs: Temp Pulse Resp BP Pulse Ox 97.9 F 111 H 20 124/87 H 97 02/15/18 08:30 02/15/18 08:30 02/15/18 12:01 02/15/18 12:01 02/15/18 12:01 - Laboratory Result Diagrams: 02/15/18 09:33 02/15/18 09:33 Laboratory results interpreted by me: 02/15/18 02/15/18 02/15/18 09:33 09:33 12:10 Lymphocytes % 8.6 L Sodium 135.6 L AST 12 L ALT 19 L Creatine Kinase 54 L 47 L - Diagnostic Test Radiology reviewed: Image reviewed Radiology results interpreted by me: 02/15/18 13:32 Chest X-Ray 02/15/18 08:53 IMPRESSION: NO ACUTE RADIOGRAPHIC FINDING IN THE CHEST. - EKG Interpretation by Me EKG shows normal: Sinus rhythm Rate: Tachycardia Additional EKG results interpreted by me: 02/15/18 13:32 Twelve-lead EKG shows sinus tachycardia [address] abnormalities noted Discharge - Discharge Clinical Impression: COPD exacerbation Condition: Good Disposition: HOME, SELF-CARE Instructions: Chronic Obstructive Lung Disease ([facility]) Prescriptions: Albuterol Sulfate [Proair HFA Inhalation Aerosol 8.5 gm MDI] 2 puff IH Q4H PRN # 1 mdi PRN Reason: Diclofenac Sodium [Voltaren] 75 mg PO BID PRN #20 tablet. PRJavier Reason: Pain Scale Of 5 Gabapentin [Neurontin] 400 mg PO TID #60 capsule Prednisone [Deltasone 20 mg Tablet] 3 tab PO DAILY 5 Days tablet
--- NOTE | 2018-02-15 09:47 | RADIOLOGY REPORT (SQ) ---
EXAM DESCRIPTION: CHEST SINGLE VIEW COMPLETED DATE/TIME: 02/15/2018 9:35 am REASON FOR STUDY: BreathSOB COMPARISON: Chest CT and radiographs performed 02/10/2018 EXAM PARAMETERS: NUMBER OF VIEWS: One view. TECHNIQUE: Single frontal radiographic view of the chest acquired. RADIATION DOSE: NA LIMITATIONS: None. FINDINGS: LUNGS AND PLEURA: Chronic blunting of the left costophrenic angle. No opacities, masses o r pneumothorax. No pleural effusion. MEDIASTINUM AND HILAR STRUCTURES: No masses. Contour normal. HEART AND VASCULAR STRUCTURES: Heart normal in size. Normal vasculature. BONES: No acute findings. HARDWARE: None in the chest. OTHER: No other significant finding. IMPRESSION: NO ACUTE RADIOGRAPHIC FINDING IN THE CHEST. TECHNICAL DOCUMENTATION: JOB ID: [id number] [employer]- All Rights Reserved Reading location - IP/workstation name: [email or web address]
[2018-02-15 09:56] LABS: ABSOLUTE EOSINOPHILS # (AUTO) 0.3 10^3/uL (0.0-0.6); ABSOLUTE LYMPHOCYTES (AUTO) 0.9 10^3/uL (0.5-4.7); ABSOLUTE MONOCYTES (AUTO) 1.1 10^3/uL (0.1-1.4); ABSOLUTE NEUT (AUTO) 8.1 10^3/uL (1.7-8.2); BASOPHILS % (AUTO) 0.1 % (0-2); EOSINOPHILS % (AUTO) 3.1 % (0-6); HEMATOCRIT 42.5 % (37.9-51.0); HEMOGLOBIN 14.5 g/dL (13.5-17.0); LYMPHOCYTES % (AUTO) 8.6 % (13-45); MEAN CORPUSCULAR HEMOGLOBIN 30.5 pg (27.0-33.4); MEAN CORPUSCULAR HGB CONC 34.1 g/dL (32.0-36.0); MEAN CORPUSCULAR VOLUME 90 fl (80-97); MONOCYTES % (AUTO) 10.3 % (3-13); PLATELET COUNT 219 10^3/uL (150-450); RED BLOOD COUNT 4.75 10^6/uL (4.35-5.55); RED CELL DISTRIBUTION WIDTH 13.4 % (11.5-14.0); SEGMENTED NEUTROPHILS % (AUTO) 77.9 % (42-78); TOTAL CELLS COUNTED % (AUTO) 100 %; WHITE BLOOD COUNT 10.4 10^3/uL (4.0-10.5)
[2018-02-15 10:12] LABS: ALANINE AMINOTRANSFERASE 19 U/L (21-72); ALBUMIN 3.9 g/dL (3.5-5.0); ALKALINE PHOSPHATASE 74 U/L (38-126); ANION GAP 11 (5-19); ASPARTATE AMINO TRANSFERASE 12 U/L (17-59); BILIRUBIN,DIRECT 0.4 mg/dL (0.0-0.4); BILIRUBIN,TOTAL 0.9 mg/dL (0.2-1.3); BLOOD UREA NITROGEN 11 mg/dL (7-20); CALCIUM 9.3 mg/dL (8.4-10.2); CARBON DIOXIDE 26 mmol/L (22-30); CHLORIDE 99 mmol/L (98-107); CREATINE KINASE 54 U/L (55-170); GLUCOSE 109 mg/dL (75-110); SODIUM 135.6 mmol/L (137-145); TOTAL PROTEIN 6.5 g/dL (6.3-8.2)
[2018-02-15 10:24] LABS: CREATINE KINASE MB 1.13 ng/mL (<4.55); TROPONIN I 0.018 ng/mL
[2018-02-15] MEDS ORDERED: IBUPROFEN 800 MG TABLET PO ONE (10:33)
[2018-02-15 14:38] VITALS: BP 120/81
--- NOTE | 2018-02-15 21:02 | EKG REPORT ---
SEVERITY:- ABNORMAL ECG - SINUS TACHYCARDIA LVH WITH SECONDARY REPOLARIZATION ABNORMALITY ANTERIOR ST ELEVATION, PROBABLY DUE TO LVH : Confirmed by: Ivan Oseguera 15-Feb-2018 21:02:00
== END 2018-02-15 14:38 | disposition home or self-care (01) ==
LOC: ER 08:14
DX: J44.1 Chronic obstructive pulmonary disease with (acute) exacerbation (principal); R11.0 Nausea; F17.200 Nicotine dependence, unspecified, uncomplicated; I10 Essential (primary) hypertension; Z59.0 Homelessness
CPT/HCPCS: 93005; 94640; 99285; 96374; 36415; 82553; 82550; 85025; 80053; 84484; 71045; 93010; J3490; J2930; J7620

== ENCOUNTER 2018-02-22 07:46 | Inpatient (IN) | payer MEDICAID ==
[2018-02-22] MEDS ORDERED: LORAZEPAM INJ 2 MG/1 ML VIAL IV ONE ×2 (07:50→08:19)
[2018-02-22] MEDS ORDERED: IPRATROPIUM/ALBUTEROL 0.5-2.5 MG/3 ML AMPUL NEB ONE (07:50)
--- NOTE | 2018-02-22 07:51 | ER Document Report ---
ED General - General Stated Complaint: SHORTNESS OF BREATH Time Seen by Provider: 02/22/18 07:49 Mode of Arrival: Medic Information source: Patient, Emergency Med Personnel, [facility] Records Notes: 57-year-old male history of COPD who is been here now four times in the past week with complaints of sob productive yellow cough. ems notes patient is supposed ot be on o2, but it is in storage, pt took breathing treatments at the friends house he is staying at. denies any fevers. pt noted to be satting 83% without oxygen, currently 100% on 2 L nc. TRAVEL OUTSIDE OF THE [place] IN LAST 30 DAYS: No - HPI Onset: Last week Onset/Duration: Persistent, Waxing and waning Quality of pain: Achy Severity: Moderate Pain Level: 1 Associated symptoms: Productive cough - yellow, Shortness of breath Exacerbated by: Walking, Coughing Relieved by: Denies Similar symptoms previously: Yes Recently seen / treated by doctor: Yes - Related Data Allergies/Adverse Reactions: No Known Allergies Allergy (Verified 02/20/18 23:31) Past Medical History - Social History Smoking Status: Current Every Day Smoker Cigarette use (# per day): Yes Chew tobacco use (# tins/day): No Smoking Education Provided: Yes - Patient counselled regarding cessation for 4 minutes Family History: Reviewed & Not Pertinent, CAD, Hyperlipidemia, Hypertension - Past Medical History Cardiac Medical History: Reports: Hx Hypertension Denies: Hx Heart Attack - History of, Hx Hypercholesterolemia Pulmonary Medical History: Reports: Hx COPD Neurological Medical History: Reports: Hx Seizures - Seizures when drinking states he has not drank in 16 years Endocrine Medical History: Denies: Hx Diabetes Mellitus Type 1, Hx Diabetes Mellitus Type 2, Hx Hyperthyroidism, Hx Hypothyroidism Renal/ Medical History: Denies: Hx Peritoneal Dialysis GI Medical History: Denies: Hx Cirrhosis, Hx Gastroesophageal Reflux Disease, Hx Hepatitis Musculoskeltal Medical History: Reports Hx Arthritis, Reports Hx Musculoskeletal Deformity - degenerative disc disease, Reports Hx Musculoskeletal Trauma Psychiatric Medical History: Reports: Hx Bipolar Disorder Traumatic Medical History: Reports: Hx Fractures, Hx Spine Fracture - States "back in 2 places" Infectious Medical History: Denies: Hx Hepatitis Review of Systems - Review of Systems Notes: REVIEW OF SYSTEMS: CONSTITUTIONAL : Denies fever, chills, or sweats. Denies recent illness. EENT: Denies eye, ear, throat, or mouth pain or symptoms. Denies nasal or sinus congestion or discharge. Denies throat, tongue, or mouth swelling or difficulty swallowing. CARDIOVASCULAR: Denies chest pain. Denies palpitations or racing or irregular heart beat. Denies ankle edema. RESPIRATORY: Admits to shortness of breath difficulty breathing. GASTROINTESTINAL: Denies abdominal pain or distention. Denies nausea, vomiting , or diarrhea. Denies blood in vomitus, stools, or per rectum. Denies black, tarry stools. Denies constipation. GENITOURINARY: Denies difficulty urinating, painful urination, burning, frequency, blood in urine, or discharge. MUSCULOSKELETAL: Denies back or neck pain or stiffness. Denies joint pain or swelling. SKIN: Denies rash, lesions or sores. HEMATOLOGIC : Denies easy bruising or bleeding. LYMPHATIC: Denies swollen, enlarged glands. NEUROLOGICAL: Denies confusion or altered mental status. Denies passing out or loss of consciousness. Denies dizziness or lightheadedness. Denies headache. Denies weakness or paralysis or loss of use of either side. Denies problems with gait or speech. Denies sensory loss, numbness, or tingling. Denies seizures. PSYCHIATRIC: Denies anxiety or stress. Denies depression, suicidal ideation, or homicidal ideation. ALL OTHER SYSTEMS REVIEWED AND NEGATIVE. Dictation was performed using [employer] voice recognition software PHYSICAL EXAMINATION: GENERAL: Ill-appearing thin male HEAD: Atraumatic, normocephalic. EYES: Pupils equal round and reactive to light, extraocular movements intact, sclera anicteric, conjunctiva are normal. ENT: Nares patent, oropharynx clear without exudates. Moist mucous membranes. NECK: Normal range of motion, supple without lymphadenopathy LUNGS: Significant respiratory distress tachypneic hypoxic HEART: Tachycardic ABDOMEN: Soft, nontender, nondistended abdomen. No guarding, no rebound. No masses appreciated. Musculoskeletal: Normal range of motion, no pitting or edema. No cyanosis. NEUROLOGICAL: Cranial nerves grossly intact. Normal speech, normal gait. Normal sensory, motor exams PSYCH: Normal mood, normal affect. SKIN: Warm, Dry, normal turgor, no rashes or lesions noted. Physical Exam - Vital signs Vitals: Resp Pulse Ox 38 H 99 02/22/18 07:47 02/22/18 07:47 Course - Re-evaluation Re-evalutation: 02/22/18 08:03 Patient presents in respiratory distress, heart rates in the 140s sats dropped very quickly when taken off nebulizer, he desatted to 79% on 6 L nasal cannula, previous CT of his chest was concerning for metastatic lesions 02/22/18 09:07 Patient CTA is consistent with pneumonia, he continues to be tachycardic, patient meets sepsis criteria, he has been given a dose of antibiotics lactate was not elevated blood pressure is stable - Vital Signs Vital signs: Temp Pulse Resp BP Pulse Ox 99.3 F 37 H 150/91 H 100 02/22/18 07:50 02/22/18 09:21 02/22/18 09:21 02/22/18 09:21 - Laboratory Result Diagrams: 02/22/18 07:15 02/22/18 07:15 Laboratory results interpreted by me: 02/22/18 02/22/18 07:15 07:15 WBC 12.5 H Seg Neutrophils % 87.8 H Lymphocytes % 6.3 L Absolute Neutrophils 10.9 H Carbon Dioxide 31 H Critical Care Note - Critical Care Note Total time excluding time spent on procedures (mins): 41 Comments: 41 minutes of critical care time spent in direct contact evaluating and reevaluating the patient, treating symptoms, reviewing labs and studies and speaking with family and consultants excluding any procedures Discharge - Discharge Clinical Impression: COPD exacerbation Pneumonia of both upper lobes Qualifiers: Pneumonia type: due to unspecified organism Qualified Code(s): J18.1 - Lobar pneumonia, unspecified organism Sepsis Qualifiers: Sepsis type: sepsis due to unspecified organism Qualified Code(s): A41.9 - Sepsis, unspecified organism Condition: Fair Disposition: ADMITTED INPATIENT Admitting Provider: Hospitalist Unit Admitted: [facility]
[2018-02-22 08:14] LABS: ABSOLUTE LYMPHOCYTES (AUTO) 0.8 10^3/uL (0.5-4.7); ABSOLUTE MONOCYTES (AUTO) 0.7 10^3/uL (0.1-1.4); ABSOLUTE NEUT (AUTO) 10.9 10^3/uL (1.7-8.2); BASOPHILS % (AUTO) 0.2 % (0-2); EOSINOPHILS % (AUTO) 0.1 % (0-6); HEMATOCRIT 40.8 % (37.9-51.0); HEMOGLOBIN 13.5 g/dL (13.5-17.0); LYMPHOCYTES % (AUTO) 6.3 % (13-45); MEAN CORPUSCULAR HEMOGLOBIN 29.9 pg (27.0-33.4); MEAN CORPUSCULAR HGB CONC 33.2 g/dL (32.0-36.0); MEAN CORPUSCULAR VOLUME 90 fl (80-97); MONOCYTES % (AUTO) 5.6 % (3-13); PLATELET COUNT 327 10^3/uL (150-450); RED BLOOD COUNT 4.53 10^6/uL (4.35-5.55); RED CELL DISTRIBUTION WIDTH 13.8 % (11.5-14.0); SEGMENTED NEUTROPHILS % (AUTO) 87.8 % (42-78); TOTAL CELLS COUNTED % (AUTO) 100 %; WHITE BLOOD COUNT 12.5 10^3/uL (4.0-10.5)
[2018-02-22 08:16] LABS: VENOUS BLOOD BASE EXCESS 1.8 mmol/L; VENOUS BLOOD HCO3 29.9 mmol/L (20-32); VENOUS BLOOD PCO2 61.8 mmHg (35-63); VENOUS BLOOD PH 7.3 (7.30-7.42)
[2018-02-22 08:24] LABS: INTERNATIONAL RATION (INR) 0.87; PROTHROMBIN TIME 12.3 SEC (11.4-15.4)
[2018-02-22 08:38] LABS: ALANINE AMINOTRANSFERASE 52 U/L (21-72); ALKALINE PHOSPHATASE 88 U/L (38-126); ANION GAP 13 (5-19); ASPARTATE AMINO TRANSFERASE 49 U/L (17-59); BILIRUBIN,DIRECT 0.1 mg/dL (0.0-0.4); BILIRUBIN,TOTAL 0.3 mg/dL (0.2-1.3); BLOOD UREA NITROGEN 11 mg/dL (7-20); CALCIUM 8.6 mg/dL (8.4-10.2); CARBON DIOXIDE 31 mmol/L (22-30); CHLORIDE 98 mmol/L (98-107); GLUCOSE 99 mg/dL (75-110); POTASSIUM 4.2 mmol/L (3.6-5.0); TOTAL PROTEIN 6.4 g/dL (6.3-8.2)
--- NOTE | 2018-02-22 08:59 | RADIOLOGY REPORT (SQ) ---
EXAM DESCRIPTION: CHEST SINGLE VIEW COMPLETED DATE/TIME: 02/22/2018 7:58 am REASON FOR STUDY: bed 18 sepsis protocol COMPARISON: 02/21/2018. NUMBER OF VIEWS: One view. TECHNIQUE: Single frontal radiographic view of the chest acquired. LIMITATIONS: Artifact left costophrenic angle. FINDINGS: LUNGS AND PLEURA: No opacities, masses or pneumothorax. No pleural effusion. Attenuated bl ood vessels and flattened lio-diaphragms. MEDIASTINUM AND HILAR STRUCTURES: No masses. Contour normal. HEART AND VASCULAR STRUCTURES: Heart normal in size. Normal vasculature. BONES: No acute findings. HARDWARE: None in the chest. OTHER: No other significant finding. IMPRESSION: COPD. NO ACUTE RADIOGRAPHIC FINDING IN THE CHEST. TECHNICAL DOCUMENTATION: JOB ID: [id number] [employer]- All Rights Reserved Reading location - IP/workstation name: [email or web address]
--- NOTE | 2018-02-22 09:05 | RADIOLOGY REPORT (SQ) ---
EXAM DESCRIPTION: CTA CHEST COMPLETED DATE/TIME: 02/22/2018 8:43 am REASON FOR STUDY: hypoxemia COMPARISON: AP chest 02/22/2018, 02/21/2018, 02/15/2018, 02/10/2018 CT chest 02/10/2018 TECHNIQUE: CT scan of the chest performed using helical scanning technique with dynamic intravenous contrast injection. Images reviewed with lung, soft tissue and bone windows. Reconstructed coronal and sagittal MPR images reviewed. Additional 3 dimensional post-processing performed to develop Maximal Intensity Projection images (FL P). All images stored on PACS. All CT scanners at this facility use dose modulation, iterative reconstruction, and/or weight based d osing when appropriate to reduce radiation dose to as low as reasonably achievable (ALARA). [facility]: Dose Right [facility]: CareDose [facility]: Dose Right [facility]: Teradose 4D [facility]: [employer] CONTRAST TYPE AND DOSE: contrast/concentration: Isovue 370.00 mg/ml; Total Contrast Delivered: 63.0 ml; Total Saline Delivered: 76.1 ml Contrast bolus optimized for the pulmonary arteries. Not diagnostic for the aorta. RENAL FUNCTION: Creatinine 0.65 RADIATION DOSE: CT Rad equipment meets quality standard of care and radiation dose reduction techniq ues were employed. CTDIvol: 9.9 - 14.3 mGy. DLP: 634 mGy-cm. . LIMITATIONS: Motion artifact FINDINGS: LUNGS AND PLEURA: Motion artifact. Question minimal or early infiltrates in the periphery of the right and left upper lobes. No pleural effusions. Airways are patent. AORTA AND GREAT VESSELS: No aneurysm. Contrast bolus not optimized for the aorta. HEART: No pericardial effusion. No significant coronary artery calcifications. PULMONARY ARTERIES: No emboli visualized in the main pulmonary arteries or the segmental branches. HILAR AND MEDIASTINAL STRUCTURES: No identified masses or abnormal nodes. HARDWARE: None in the chest. UPPER ABDOMEN: No significant findings. Limited exam. THYROID AND OTHER SOFT TISSUES: No masses. No adenopathy. BONES: No acute or significant finding. 3D MIPS: Confirm above findings. OTHER: No other significant finding. IMPRESSION: No gross CT angio evidence of acute pulmonary emboli Motion artifact on the study. Question early or developing infiltrates in the bilateral upper lobes. COMMENT: Quality ID # [id number]: Final reports with documentation of one or more dose reduction techniques (e.g., Automated exposure control, adjustment of the mA and/or kV according to patient size, use of iterative reconstruction technique) TECHNICAL DOCUMENTATION: JOB ID: [id number] [employer]- All Rights Reserved Reading location - IP/workstation name: [email or web address]
[2018-02-22] MEDS ORDERED: CEFTRIAXONE 1 GM/D5W RTU 1 GM/50 ML RTUPB IV ONE (09:06)
[2018-02-22] MEDS ORDERED: NORMAL SALINE 1000 ML 1,000 ML IV ONE ×3 (09:07→14:51)
[2018-02-22] MEDS ORDERED: SUCCINYLCHOLINE CHLORIDE INJ 200 MG/10 ML VIAL ONE (09:12)
[2018-02-22] MEDS: NORMAL SALINE 1000 ML 1,000 ML IV PRN ×3 (09:25→22:44)
[2018-02-22] MEDS ORDERED: NORMAL SALINE 1000 ML 1,000 ML IV PRN ×2 (09:31→14:07)
[2018-02-22] MEDS ORDERED: ALBUTEROL SULFATE 0.083% NEB 2.5 MG/3 ML AMPUL NEB PRN (09:31)
[2018-02-22] MEDS ORDERED: ONDANSETRON HCL INJ/PF 4 MG/2 ML SDV IV PRN (09:31)
[2018-02-22] MEDS ORDERED: ACETAMINOPHEN 325 MG TABLET PO PRN (09:31)
[2018-02-22] MEDS ORDERED: ZOLPIDEM TARTRATE 5 MG TABLET PO PRN (09:31)
[2018-02-22] MEDS ORDERED: DIVALPROEX SODIUM 500 MG TAB.SR.24H PO SCH (10:00)
[2018-02-22] MEDS ORDERED: CEFTRIAXONE INJ 1000 MG VIAL IV ONE (10:00)
[2018-02-22] MEDS ORDERED: GABAPENTIN 300 MG CAPSULE PO SCH (10:00)
[2018-02-22 10:09] LABS: APPEARANCE,URINE CLEAR; BILIRUBIN,URINE NEGATIVE (NEGATIVE); COLOR,URINE STRAW; GLUCOSE, URINE NEGATIVE (NEGATIVE); KETONES,URINE NEGATIVE (NEGATIVE); LEUKOCYTE ESTERASE,URINE NEGATIVE (NEGATIVE); NITRITE,URINE NEGATIVE (NEGATIVE); PROTEIN,URINE NEGATIVE (NEGATIVE); URINE SPECIFIC GRAVITY 1.036; UROBILINOGEN,URINE NEGATIVE mg/dL (<2.0)
[2018-02-22] MEDS ORDERED: DILTIAZEM HCL INJ 25 MG/5 ML VIAL IV PRN (10:34)
[2018-02-22] MEDS ORDERED: LORAZEPAM INJ 2 MG/1 ML VIAL IV PRN (10:36)
[2018-02-22] MEDS ORDERED: NICOTINE 21 MG/24 HR PATCH.TD24 TD ONE (10:38)
[2018-02-22] MEDS ORDERED: RISPERIDONE MICROSPHERES INJ 12.5 MG/2 ML KIT IM ONE (11:00)
[2018-02-22 11:15] LABS: URINE AMPHETAMINES SCREEN NEGATIVE; URINE BARBITURATES SCREEN NEGATIVE; URINE BENZODIAZEPINES SCREEN NEGATIVE; URINE COCAINE SCREEN NEGATIVE; URINE MARIJUANA (THC) SCREEN UNCONFIRMED POSITIVE; URINE METHADONE SCREEN NEGATIVE; URINE PHENCYCLIDINE SCREEN NEGATIVE
[2018-02-22 11:19] LABS: ARTERIAL BLOOD BASE EXCESS -8.6 mmol/L; ARTERIAL BLOOD H2CO3 1.73 mmol/L (1.05-1.35); ARTERIAL BLOOD HCO3 20.5 mmol/L (20-26); ARTERIAL BLOOD O2 SATURATION 64.4 % (94-98); ARTERIAL BLOOD PCO2 57.5 mmHg (35-45); ARTERIAL BLOOD PO2 42.1 mmHg (80-100); ARTERIAL BLOOD TOTAL CO2 22.3 mmol/L (23-27)
[2018-02-22 11:29] LABS: ARTERIAL BLOOD FIO2 40%; ARTERIAL BLOOD PH 7.17 (7.35-7.45)
[2018-02-22] MEDS ORDERED: METOPROLOL TARTRATE PF/INJ 5 MG/5 ML SDV IV PRN (12:00)
[2018-02-22] MEDS ORDERED: DIAZEPAM INJ 10 MG/2 ML DISP.SYRIN IV SCH (12:00)
[2018-02-22] MEDS ORDERED: DIGOXIN INJ 0.5 MG/2 ML AMPULE IV ONE (12:00)
[2018-02-22] MEDS ORDERED: PIPERACILLIN SODIUM/TAZOBACTAM 3.375 GM in NORMAL SALINE 100 ML IV SCH (12:00)
[2018-02-22] MEDS ORDERED: DEXTROSE 50%-WATER 25 GM/50 ML DISP.SYRIN IV PRN ×4 (12:02→14:07)
[2018-02-22] MEDS ORDERED: DEXTROSE 40% GEL 15 GM TUBE PO PRN ×4 (12:02→14:07)
[2018-02-22] MEDS ORDERED: GLUCAGON,HUMAN RECOMB 1 MG INJ SUBCUT PRN (12:02)
--- NOTE | 2018-02-22 12:03 | PDOC H&P ---
History of Present Illness Admission Date/PCP: February 22, 2018 Patient complains of: Unable to obtain due to patient's mental status History of Present Illness: GALI CHURCH JR is a 57 year old male who arrived to emergency room via ambulance. Accordingly patient had been on 4 occasions in ED because of shortness of breath. He had been treated and released. Patient had been staying with friends. Upon arrival of EMS to his home patient was not using his oxygen and was saturating 88% on room air. Patient was then transferred to emergency room. Accordingly on arrival to emergency room patient was saturating 70% on room air heart rate was 140 temperature 99.3 and patient was placed on BiPAP. Patient kept removing his BiPAP as I was told. CTA of the chest showed bilateral pneumonia. My understanding is that patient has stated that tested positive for amphetamines in the past and has a psychiatric history. Our service was consulted for further management. It is not worth it to mention that history gathering had been through ED record as patient basically keeps mumbling Past Medical History Cardiac Medical History: Reports: Hypertension Denies: Myocardial Infarction - History of, Hyperlipidema Pulmonary Medical History: Reports: Chronic Obstructive Pulmonary Disease (COPD) , Respiratory Failure EENT Medical History: Reports: None Neurological Medical History: Reports: None, Seizures - Seizures when drinking states he has not drank in 16 years Endocrine Medical History: Denies: Diabetes Mellitus Type 1, Diabetes Mellitus Type 2, Hyperthyroidism, Hypothyroidism Renal/ Medical History: Reports: None Malignancy Medical History: Reports: None GI Medical History: Denies: Cirrhosis, Gastroesophageal Reflux Disease, Hepatitis Musculoskeltal Medical History: Reports: Arthritis Skin Medical History: Reports: None Psychiatric Medical History: Reports: Bipolar Disorder, Tobacco Dependency Traumatic Medical History: Denies: None Hematology: Reports: None Infectious Medical History: Reports: None Past Surgical History Past Surgical History: Reports: None Social History Smoking Status: Current Every Day Smoker Frequency of Alcohol Use: None Drugs: None Hx Prescription Drug Abuse: Yes - Advance Directive Resuscitation Status: Full Code Family History Family History: Reviewed & Not Pertinent, CAD, Hyperlipidemia, Hypertension Parental Family History Reviewed: Yes Children Family History Reviewed: Yes Sibling(s) Family History Reviewed.: Yes Medication/Allergy Home Medications: Albuterol Sulfate [Proair HFA] 2 puff IH Q4HP PRN 02/22/18 Dextroamphetamine/Amphetamine [Adderall 30 mg Tablet] 30 mg PO QID 02/22/18 Diclofenac Sodium [Voltaren] 75 mg PO BIDP PRN 02/22/18 Gabapentin [Neurontin 300 mg Capsule] 600 mg PO Q8HP PRN 02/22/18 Tiotropium [place] [Spiriva Handihaler 18 mcg/dose (30 Dose)] 1 cap IH DAILY Allergies/Adverse Reactions: No Known Allergies Allergy (Verified 02/20/18 23:31) Review of Systems ROS unobtainable: Due to mental status Physical Exam Vital Signs: Temp Pulse Resp BP Pulse Ox 99.3 F 33 H 155/89 H 98 02/22/18 07:50 02/22/18 10:01 02/22/18 10:01 02/22/18 10:01 Intake & Output 02/21/18 02/22/18 02/23/18 06:59 06:59 06:59 Output Total 300 Balance -300 Weight 63.3 kg General appearance: PRESENT: mild distress, thin, other - restless Eye exam: PRESENT: conjunctiva pink, EOMI, PERRLA Ear exam: PRESENT: normal external ear exam Mouth exam: PRESENT: moist Neck exam: PRESENT: full ROM. ABSENT: JVD, lymphadenopathy, tenderness Respiratory exam: PRESENT: decreased breath sounds Cardiovascular exam: PRESENT: tachycardia. ABSENT: diastolic murmur, systolic murmur Vascular exam: PRESENT: normal capillary refill GI/Abdominal exam: PRESENT: normal bowel sounds, soft. ABSENT: tenderness Extremities exam: PRESENT: full ROM. ABSENT: pedal edema Musculoskeletal exam: ABSENT: ambulatory Neurological exam: PRESENT: alert Psychiatric exam: PRESENT: agitated Skin exam: PRESENT: intact, normal color Results Laboratory Results: 02/22/18 07:15 02/22/18 07:15 02/22/18 02/22/18 02/22/18 07:15 07:15 07:56 WBC 12.5 H RBC 4.53 Hgb 13.5 Hct 40.8 MCV 90 MCH 29.9 MCHC 33.2 RDW 13.8 Plt Count 327 Seg Neutrophils % 87.8 H Lymphocytes % 6.3 L Monocytes % 5.6 Eosinophils % 0.1 Basophils % 0.2 Absolute Neutrophils 10.9 H Absolute Lymphocytes 0.8 Absolute Monocytes 0.7 Absolute Eosinophils 0.0 Absolute Basophils 0.0 VBG pH VBG pCO2 VBG HCO3 VBG Base Excess Sodium 142.0 Potassium 4.2 Chloride 98 Carbon Dioxide 31 H Anion Gap 13 BUN 11 Creatinine 0.66 Est GFR ( Amer) > 60 Est GFR (Non-Af Amer) > 60 Glucose 99 Lactic Acid 1.3 Calcium 8.6 Total Bilirubin 0.3 AST 49 ALT 52 Alkaline Phosphatase 88 Total Protein 6.4 Albumin 4.0 Urine Color Urine Appearance Urine pH Ur Specific Lopez Urine Protein Urine Glucose (UA) Urine Ketones Urine Blood Urine Nitrite Ur Leukocyte Esterase Urine WBC (Auto) Urine RBC (Auto) 02/22/18 02/22/18 07:56 09:51 WBC RBC Hgb Hct MCV MCH MCHC RDW Plt Count Seg Neutrophils % Lymphocytes % Monocytes % Eosinophils % Basophils % Absolute Neutrophils Absolute Lymphocytes Absolute Monocytes Absolute Eosinophils Absolute Basophils VBG pH 7.30 VBG pCO2 61.8 VBG HCO3 29.9 VBG Base Excess 1.8 Sodium Potassium Chloride Carbon Dioxide Anion Gap BUN Creatinine Est GFR ( Amer) Est GFR (Non-Af Amer) Glucose Lactic Acid Calcium Total Bilirubin AST ALT Alkaline Phosphatase Total Protein Albumin Urine Color STRAW Urine Appearance CLEAR Urine pH 5.0 Ur Specific Lopez 1.036 Urine Protein NEGATIVE Urine Glucose (UA) NEGATIVE Urine Ketones NEGATIVE Urine Blood NEGATIVE Urine Nitrite NEGATIVE Ur Leukocyte Esterase NEGATIVE Urine WBC (Auto) 1 Urine RBC (Auto) 0 Impressions: Chest X-Ray 02/22/18 07:47 IMPRESSION: COPD. NO ACUTE RADIOGRAPHIC FINDING IN THE CHEST. Chest/Abdomen CTA 02/22/18 08:04 IMPRESSION: No gross CT angio evidence of acute pulmonary emboli Motion artifact on the study. Question early or developing infiltrates in the bilateral upper lobes. Assessment & Plan - Diagnosis (1) Pneumonia of both upper lobes Qualifiers: Pneumonia type: due to unspecified organism Qualified Code(s): J18.1 - Lobar pneumonia, unspecified organism Is this a current diagnosis for this admission?: Yes Plan: Patient will be placed on Zosyn. (2) Acute and chronic respiratory failure Is this a current diagnosis for this admission?: Yes Plan: Will continue BiPaP. Will start some of his psychiatric medication and attempt to control agitation (3) COPD exacerbation Is this a current diagnosis for this admission?: Yes Plan: Patient will be placed on nebulizer treatment, mucolytic, IV steroid (4) Sepsis Qualifiers: Sepsis type: sepsis due to unspecified organism Qualified Code(s): A41.9 - Sepsis, unspecified organism Is this a current diagnosis for this admission?: Yes Plan: Due to pneumonic process. Patient will be placed on Zosyn. We will continue IV fluids. Will repeat lactic acid in 2 hours (5) Tobacco abuse Is this a current diagnosis for this admission?: Yes Plan: Patient will will place a nicotine patch (6) Polysubstance abuse Is this a current diagnosis for this admission?: Yes Plan: Patient will be placed on schedule Valium and as needed Ativan IV. Patient will be placed on thiamine and folic acid IV (7) Bipolar 1 disorder with moderate jovi Is this a current diagnosis for this admission?: Yes Plan: Will start Risperdal and Depakote IV (8) Tachycardia Is this a current diagnosis for this admission?: Yes Plan: This could be multifactorial. Urine drug screen negative for cocaine or amphetamines. My understanding is a Cardizem is not available because of a shortage. Will order Lopressor IV which will help also with high blood pressure. (9) HTN (hypertension) Qualifiers: Hypertension type: essential hypertension Qualified Code(s): I10 - Essential (primary) hypertension Is this a current diagnosis for this admission?: Yes Plan: Patient will be placed on clonidine patch and Lopressor IV - Time Time Spent: 50 to 70 Minutes Medications reviewed and adjusted accordingly: Yes Anticipated discharge: Acute Rehab Within: within 72 hours - Inpatient Certification Based on my medical assessment, after consideration of the patient's comorbidities, presenting symptoms, or acuity I expect that the services needed warrant INPATIENT care.: Yes I certify that my determination is in accordance with my understanding of Medicare's requirements for reasonable and necessary INPATIENT services [42 CFR 412.3e].: Yes Medical Necessity: Need Close Monitoring Due to Risk of Patient Decompensation, Need For IV Fluids, Need for IV Antibiotics
[2018-02-22] MEDS: PIPERACILLIN SODIUM/TAZOBACTAM 3.375 GM in NORMAL SALINE 100 ML IV SCH ×2 (12:10→18:54)
[2018-02-22] MEDS ORDERED: ETOMIDATE INJ/PF 20 MG/10 ML SDV IV ONE (12:47)
[2018-02-22] MEDS ORDERED: PROPOFOL 100 ML IV ONE (12:56)
[2018-02-22] MEDS ORDERED: PHARMACY COMMUNICATION ORDER MC NR (13:00)
[2018-02-22] MEDS ORDERED: CLONIDINE 0.2 MG/24 HR PATCH.TDWK TD SCH (13:00)
[2018-02-22] MEDS ORDERED: PROPOFOL INJ 200 MG/20 ML VIAL IV ONE (13:06)
--- NOTE | 2018-02-22 13:38 | EKG REPORT ---
SEVERITY:- ABNORMAL ECG - SINUS TACHYCARDIA PROBABLE LEFT ATRIAL ABNORMALITY LEFT VENTRICULAR HYPERTROPHY ANTERIOR ST ELEVATION, PROBABLY DUE TO LVH : Confirmed by: Enrike Sheridan MD 22-Feb-2018 13:37:15
[2018-02-22] MEDS: MIDAZOLAM HCL 50 MG/100 ML RTUINJ IV PRN ×4 (13:45→22:42)
[2018-02-22] MEDS ORDERED: GABAPENTIN 400 MG CAPSULE PO SCH (14:00)
[2018-02-22] MEDS ORDERED: GABAPENTIN 300 MG CAPSULE PO PRN (14:02)
[2018-02-22] MEDS ORDERED: INSULIN LISPRO 100 UNIT/ML 3 ML VIAL SUBCUT PRN (14:07)
[2018-02-22] MEDS ORDERED: GLUCAGON,HUMAN RECOMB 1 MG INJ IM PRN (14:07)
--- NOTE | 2018-02-22 14:16 | RADIOLOGY REPORT (SQ) ---
EXAM DESCRIPTION: CHEST SINGLE VIEW COMPLETED DATE/TIME: 02/22/2018 1:48 pm REASON FOR STUDY: intubation COMPARISON: CT angio chest 02/22/2018, AP chest 02/22/2018, 02/21/2018, 02/10/2018 EXAM PARAMETERS: NUMBER OF VIEWS: One view. TECHNIQUE: Single frontal radiographic view of the chest acquired. RADIATION DOSE: NA LIMITATIONS: Lung bases are cropped from the inferior aspect of the film FINDINGS: LUNGS AND PLEURA: There is interstitial edema in the mid and lower lungs. No gross pleura l effusion or pneumothorax. Lung bases are cropped from the field of view MEDIASTINUM AND HILAR STRUCTURES: No masses. Contour normal. HEART AND VASCULAR STRUCTURES: No cardiomegaly BONES: No acute findings. HARDWARE: Endotracheal tube tip 5 cm above the kali. Nasogastric tube tip below the hemidiaphragms . OTHER: No other significant finding. IMPRESSION: Interstitial pulmonary edema. Endotracheal tube tip midtrachea. TECHNICAL DOCUMENTATION: JOB ID: [id number] [employer] All Rights Reserved Reading location - IP/workstation name: [email or web address]
--- NOTE | 2018-02-22 14:17 | RADIOLOGY REPORT (SQ) ---
EXAM DESCRIPTION: KUB/ABDOMEN (SINGLE VIEW) COMPLETED DATE/TIME: 02/22/2018 1:48 pm REASON FOR STUDY: Check Placement of NG Tube COMPARISON: None. NUMBER OF VIEWS: One view. TECHNIQUE: Supine radiographic image of the abdomen acquired. LIMITATIONS: None. FINDINGS: Film for nasogastric tube placement. Nasogastric tube tip and side port in the stomach. There is interstitial pulmonary edema at the lung bases. IMPRESSION: Nasogastric tube tip and side port in the stomach. Interstitial pulmonary edema at the lung base TECHNICAL DOCUMENTATION: JOB ID: [id number] [employer]- All Rights Reserved Reading location - IP/workstation name: [email or web address]
[2018-02-22] MEDS: IPRATROPIUM/ALBUTEROL 0.5-2.5 MG/3 ML AMPUL NEB SCH ×2 (14:30→20:14)
[2018-02-22] MEDS ORDERED: DEXTROSE 5%-WATER 250 ML with NOREPINEPHRINE BITARTRATE 4 MG IV PRN ×2 (14:50)
[2018-02-22 15:57] LABS: ARTERIAL BLOOD BASE EXCESS -3.5 mmol/L; ARTERIAL BLOOD HCO3 22.8 mmol/L (20-26); ARTERIAL BLOOD O2 SATURATION 98.6 % (94-98); ARTERIAL BLOOD PCO2 46.4 mmHg (35-45); ARTERIAL BLOOD PH 7.31 (7.35-7.45); ARTERIAL BLOOD TOTAL CO2 24.2 mmol/L (23-27)
[2018-02-22 15:59] LABS: ARTERIAL BLOOD FIO2 60%
[2018-02-22] MEDS ORDERED: DEXTROSE 5%-WATER 250 ML with PHENYLEPHRINE HCL 40 MG IV PRN ×2 (16:20)
[2018-02-22] MEDS: METHYLPREDNISOLONE INJ 40 MG/1 ML SDV IV SCH ×2 (16:38→22:42)
[2018-02-22] MEDS: HEPARIN SOD (PORCINE) 5,000 UNIT/ML 1 ML SYRINGE SUBCUT SCH ×2 (16:40→22:42)
--- NOTE | 2018-02-22 16:52 | RADIOLOGY REPORT (SQ) ---
EXAM DESCRIPTION: CHEST SINGLE VIEW COMPLETED DATE/TIME: 02/22/2018 4:33 pm REASON FOR STUDY: ET Tube, OG Tube and Central Line Placement COMPARISON: 02/22/2018 EXAM PARAMETERS: NUMBER OF VIEWS: One view. TECHNIQUE: Single frontal radiographic view of the chest acquired. RADIATION DOSE: NA LIMITATIONS: None. FINDINGS: LUNGS AND PLEURA: No opacities, masses or pneumothorax. There is some minimal blunting of the left costophrenic angle which I cannot exclude as a small left pleural effusion. MEDIASTINUM AND HILAR STRUCTURES: No masses. Contour normal. HEART AND VASCULAR STRUCTURES: Heart normal in size. Normal vasculature. BONES: No acute findings. HARDWARE: Endotracheal tube is identified with its tip the level of the thoracic inlet. Central line is identified with its tip at the approximate junction of SVC and right atrium. NG tube is seen wit h its tip in the left upper quadrant presumably in the proximal stomach OTHER: No other significant finding. IMPRESSION: Tubes and catheter position as noted above. No pneumothorax is seen. Other findings as noted above TECHNICAL DOCUMENTATION: JOB ID: [id number] [employer]- All Rights Reserved Reading location - IP/workstation name: [email or web address]
[2018-02-22] MEDS: PROPOFOL 100 ML IV PRN (18:24)
[2018-02-22] MEDS: THIAMINE HCL 100 MG, FOLIC ACID 1 MG in NORMAL SALINE 250 ML IV SCH (18:54)
[2018-02-22] MEDS ORDERED: VALPROATE SODIUM IV SCH (22:00)
[2018-02-22] MEDS ORDERED: NORMAL SALINE IV SCH (22:00)
[2018-02-22] MEDS ORDERED: RISPERIDONE 1 MG TABLET PO SCH (22:00)
[2018-02-22] MEDS ORDERED: VALPROATE SODIUM INJ/PF 500 MG/5 ML SDV IV SCH (22:00)
[2018-02-22] MEDS: OLANZAPINE 5 MG TABLET PO SCH (22:43)
--- NOTE | 2018-02-23 00:46 | RADIOLOGY REPORT (SQ) ---
EXAM DESCRIPTION: CT HEAD WITHOUT CLINICAL HISTORY: 57 years Male, AMS COMPARISON: February 10, 2018 TECHNIQUE: No contrast. Coronal and sagittal reformat. This exam was performed according to our departmental dose-optimization program, which includes automated exposure control, adjustment of the mA and/or kV according to patient size and/or use of iterative reconstruction technique. Limitation: Position. FINDINGS: Moderate bilateral maxillary mucosal thickening. Small fluid in the right maxillary air cell. Mild right ethmoid mucosal thickening. Partially imaged endotracheal and enteric tubes. No hemorrhage or infarct. No mass, mass effect, or midline shift. Extra-axial structures appear otherwise grossly intact. Impression: Moderate maxillary sinusitis. Endotracheal-enteric tubes. Else, no acute intracranial findings.
[2018-02-23] MEDS: PIPERACILLIN SODIUM/TAZOBACTAM 3.375 GM in NORMAL SALINE 100 ML IV SCH ×4 (01:05→17:19)
[2018-02-23] MEDS: MIDAZOLAM HCL 50 MG/100 ML RTUINJ IV PRN ×4 (02:45→17:20)
[2018-02-23 05:01] LABS: ARTERIAL BLOOD BASE EXCESS -1.3 mmol/L; ARTERIAL BLOOD FIO2 50%; ARTERIAL BLOOD H2CO3 1.03 mmol/L (1.05-1.35); ARTERIAL BLOOD HCO3 22.4 mmol/L (20-26); ARTERIAL BLOOD O2 SATURATION 98.3 % (94-98); ARTERIAL BLOOD PCO2 34.1 mmHg (35-45); ARTERIAL BLOOD PH 7.44 (7.35-7.45); ARTERIAL BLOOD PO2 111.9 mmHg (80-100); ARTERIAL BLOOD TOTAL CO2 23.4 mmol/L (23-27)
[2018-02-23 05:09] LABS: ABSOLUTE LYMPHOCYTES (AUTO) 0.4 10^3/uL (0.5-4.7); ABSOLUTE MONOCYTES (AUTO) 0.1 10^3/uL (0.1-1.4); ABSOLUTE NEUT (AUTO) 4.4 10^3/uL (1.7-8.2); HEMATOCRIT 32.4 % (37.9-51.0); LYMPHOCYTES % (AUTO) 8.4 % (13-45); MEAN CORPUSCULAR HEMOGLOBIN 30.1 pg (27.0-33.4); MEAN CORPUSCULAR HGB CONC 33.6 g/dL (32.0-36.0); MEAN CORPUSCULAR VOLUME 90 fl (80-97); MONOCYTES % (AUTO) 1.6 % (3-13); PLATELET COUNT 179 10^3/uL (150-450); RED BLOOD COUNT 3.62 10^6/uL (4.35-5.55); RED CELL DISTRIBUTION WIDTH 13.6 % (11.5-14.0); TOTAL CELLS COUNTED % (AUTO) 100 %; WHITE BLOOD COUNT 4.9 10^3/uL (4.0-10.5)
[2018-02-23 05:10] LABS: HEMOGLOBIN 10.9 g/dL (13.5-17.0)
[2018-02-23 05:17] LABS: ANION GAP 8 (5-19); BLOOD UREA NITROGEN 14 mg/dL (7-20); CALCIUM 7.8 mg/dL (8.4-10.2); CARBON DIOXIDE 23 mmol/L (22-30); CHLORIDE 109 mmol/L (98-107); GLUCOSE 117 mg/dL (75-110); POTASSIUM 4.1 mmol/L (3.6-5.0); SODIUM 139.9 mmol/L (137-145)
[2018-02-23] MEDS: HEPARIN SOD (PORCINE) 5,000 UNIT/ML 1 ML SYRINGE SUBCUT SCH ×3 (05:36→22:32)
[2018-02-23] MEDS: METHYLPREDNISOLONE INJ 40 MG/1 ML SDV IV SCH ×3 (05:38→22:31)
[2018-02-23] MEDS: NORMAL SALINE 1000 ML 1,000 ML IV PRN ×2 (07:53→17:20)
--- NOTE | 2018-02-23 07:56 | RADIOLOGY REPORT (SQ) ---
EXAM DESCRIPTION: CHEST SINGLE VIEW CLINICAL HISTORY: 57 years Male, pna/resp fail COMPARISON: February 22, 2018 NUMBER OF VIEWS/TECHNIQUE: 1/AP LIMITATIONS: Left costophrenic angle clipped off image. FINDINGS: Prominent interstitium, normal cardiac silhouette, adequate appearing endotracheal tube tip is 8 cm from the kali, likely adequate enteric tube obscured distally, and right jugular central line tip at the upper right atrium. No pneumothorax. No acute bone defect. IMPRESSION: No significant change.
[2018-02-23] MEDS ORDERED: AZITHROMYCIN 500 MG in DEXTROSE 5%-WATER 250 ML IV ONE (08:00)
[2018-02-23] MEDS: IPRATROPIUM/ALBUTEROL 0.5-2.5 MG/3 ML AMPUL NEB SCH ×3 (08:15→19:55)
[2018-02-23] MEDS: MAGNESIUM SULFATE/D5W 1 GM/100 ML RTUPB IV SCH ×2 (08:49→10:58)
--- NOTE | 2018-02-23 09:53 | PDOC PROGRESS REPORT ---
Subjective Progress Note for:: 02/23/18 Subjective:: 57-year-old male with past medical history of Hypertension COPD Alcohol withdrawal seizures more than 16 years ago Bipolar disorder Tobacco use He presented to the hospital on February 22 with shortness of breath and was noted to be hypoxic with sats of 70% on room air. He was diagnosed with acute respiratory failure given Rocephin and intubated in the emergency room. History could not be obtained due to patient's mental status. The patient is currently sedated and on the ventilator. He did not require pressors. Reason For Visit: SEPSIS,ACUTE ON CHRONIC RESPIRATORY FAILURE Physical Exam Vital Signs: Temp Pulse Resp BP Pulse Ox 95.9 F L 64 24 H 96/62 L 100 02/23/18 06:12 02/22/18 22:00 02/23/18 06:12 02/23/18 06:12 02/23/18 06:12 Intake & Output 02/22/18 02/23/18 02/24/18 06:59 06:59 06:59 Intake Total 3238 Output Total 1100 Balance 2138 Weight 68.8 kg General appearance: PRESENT: no acute distress, well-nourished Head exam: PRESENT: normocephalic Eye exam: PRESENT: conjunctiva pink, PERRLA. ABSENT: scleral icterus Ear exam: PRESENT: normal external ear exam Neck exam: ABSENT: JVD, tracheal deviation Respiratory exam: PRESENT: symmetrical, unlabored. ABSENT: crackles, wheezes Cardiovascular exam: PRESENT: RRR Vascular exam: ABSENT: pallor GI/Abdominal exam: PRESENT: normal bowel sounds, soft. ABSENT: tenderness Rectal exam: PRESENT: deferred Extremities exam: ABSENT: calf tenderness, pedal edema Neurological exam: PRESENT: other - Sedated on propofol and Versed drips. Psychiatric exam: PRESENT: other - We will to assess due to patient status Results Laboratory Results: 02/23/18 04:48 02/23/18 04:48 02/22/18 02/22/18 02/22/18 11:05 14:46 15:30 WBC RBC Hgb Hct MCV MCH MCHC RDW Plt Count Seg Neutrophils % Lymphocytes % Monocytes % Eosinophils % Basophils % Absolute Neutrophils Absolute Lymphocytes Absolute Monocytes Absolute Eosinophils Absolute Basophils Carbonic Acid 1.73 H 1.40 H HCO3/H2CO3 Ratio 11:1 16:1 ABG pH 7.17 L* 7.31 L ABG pCO2 57.5 H 46.4 H ABG pO2 42.1 L 141.0 H ABG HCO3 20.5 22.8 ABG O2 Saturation 64.4 L 98.6 H ABG Base Excess -8.6 -3.5 FiO2 40% 60% Sodium Potassium Chloride Carbon Dioxide Anion Gap BUN Creatinine Est GFR ( Amer) Est GFR (Non-Af Amer) Glucose Lactic Acid 0.8 Calcium Magnesium 02/23/18 02/23/18 02/23/18 04:48 04:48 04:48 WBC 4.9 RBC 3.62 L Hgb 10.9 L D Hct 32.4 L MCV 90 MCH 30.1 MCHC 33.6 RDW 13.6 Plt Count 179 Seg Neutrophils % 90.0 H Lymphocytes % 8.4 L Monocytes % 1.6 L Eosinophils % 0.0 Basophils % 0.0 Absolute Neutrophils 4.4 Absolute Lymphocytes 0.4 L Absolute Monocytes 0.1 Absolute Eosinophils 0.0 Absolute Basophils 0.0 Carbonic Acid 1.03 L HCO3/H2CO3 Ratio 21:1 ABG pH 7.44 ABG pCO2 34.1 L ABG pO2 111.9 H ABG HCO3 22.4 ABG O2 Saturation 98.3 H ABG Base Excess -1.3 FiO2 50% Sodium 139.9 Potassium 4.1 Chloride 109 H Carbon Dioxide 23 Anion Gap 8 BUN 14 Creatinine 0.58 Est GFR ( Amer) > 60 Est GFR (Non-Af Amer) > 60 Glucose 117 H Lactic Acid Calcium 7.8 L Magnesium 1.8 Impressions: Chest/Abdomen CTA 02/22/18 08:04 IMPRESSION: No gross CT angio evidence of acute pulmonary emboli Motion artifact on the study. Question early or developing infiltrates in the bilateral upper lobes. KUB X-Ray 02/22/18 12:57 IMPRESSION: Nasogastric tube tip and side port in the stomach. Interstitial pulmonary edema at the lung base Assessment & Plan - Diagnosis (1) Acute hypoxemic respiratory failure Is this a current diagnosis for this admission?: Yes Plan: Continue ventilator support antibiotics, nebs as needed (2) COPD exacerbation Is this a current diagnosis for this admission?: Yes Plan: On IV steroids and nebulizers (3) Pneumonia of both upper lobes Qualifiers: Pneumonia type: due to unspecified organism Qualified Code(s): J18.1 - Lobar pneumonia, unspecified organism Is this a current diagnosis for this admission?: Yes Plan: Day 2 of Zosyn. I will add Azithromycin for coverage of atypical bacteria. Follow up on sputum cultures. (4) Bipolar 1 disorder Is this a current diagnosis for this admission?: Yes Plan: Outpatient medications will be resumed once reconciled. (5) Nicotine dependence Is this a current diagnosis for this admission?: Yes Plan: No plans for now. Sedated on vent. (6) Hypomagnesemia Is this a current diagnosis for this admission?: Yes Plan: Repleted (7) DVT prophylaxis Is this a current diagnosis for this admission?: Yes Plan: Heparin subcutaneous (8) At risk for stress ulcer Is this a current diagnosis for this admission?: Yes Plan: PPI. - Time Time Spent with patient: 35 or more minutes
[2018-02-23] MEDS ORDERED: AZITHROMYCIN 500 MG in NORMAL SALINE 250 ML IV ONE (10:00)
--- NOTE | 2018-02-23 10:11 | PDOC PROGRESS REPORT ---
Subjective Progress Note for:: 02/23/18 Subjective:: intubated Reason For Visit: SEPSIS,ACUTE ON CHRONIC RESPIRATORY FAILURE Physical Exam Vital Signs: Temp Pulse Resp BP Pulse Ox 95.9 F L 64 24 H 96/62 L 100 02/23/18 06:12 02/22/18 22:00 02/23/18 06:12 02/23/18 06:12 02/23/18 06:12 Intake & Output 02/22/18 02/23/18 02/24/18 06:59 06:59 06:59 Intake Total 3238 Output Total 1100 Balance 2138 Weight 68.8 kg General appearance: PRESENT: no acute distress, cooperative, disheveled Head exam: PRESENT: atraumatic Eye exam: PRESENT: conjunctiva pale. ABSENT: EOMI, nystagmus, periorbital swelling Mouth exam: PRESENT: dry mucosa, neck supple, tongue midline, other - ET Neck exam: ABSENT: carotid bruit, JVD, lymphadenopathy, thyromegaly, tracheal deviation, tracheostomy Respiratory exam: PRESENT: crackles, decreased breath sounds, prolonged expiratory phas, rhonchi, symmetrical, unlabored. ABSENT: retraction, stridor, tachypnea Cardiovascular exam: PRESENT: RRR, +S1, +S2 Pulses: PRESENT: normal radial pulses GI/Abdominal exam: PRESENT: diminished bowel sounds, soft Gentrourinary exam: PRESENT: indwelling catheter Extremities exam: ABSENT: calf tenderness, clubbing, joint swelling Musculoskeletal exam: ABSENT: deformity, dislocation Neurological exam: PRESENT: alert, awake Skin exam: PRESENT: dry, warm Results Laboratory Results: 02/23/18 04:48 02/23/18 04:48 02/22/18 02/22/18 02/22/18 11:05 14:46 15:30 WBC RBC Hgb Hct MCV MCH MCHC RDW Plt Count Seg Neutrophils % Lymphocytes % Monocytes % Eosinophils % Basophils % Absolute Neutrophils Absolute Lymphocytes Absolute Monocytes Absolute Eosinophils Absolute Basophils Carbonic Acid 1.73 H 1.40 H HCO3/H2CO3 Ratio 11:1 16:1 ABG pH 7.17 L* 7.31 L ABG pCO2 57.5 H 46.4 H ABG pO2 42.1 L 141.0 H ABG HCO3 20.5 22.8 ABG O2 Saturation 64.4 L 98.6 H ABG Base Excess -8.6 -3.5 FiO2 40% 60% Sodium Potassium Chloride Carbon Dioxide Anion Gap BUN Creatinine Est GFR ( Amer) Est GFR (Non-Af Amer) Glucose Lactic Acid 0.8 Calcium Magnesium 02/23/18 02/23/18 02/23/18 04:48 04:48 04:48 WBC 4.9 RBC 3.62 L Hgb 10.9 L D Hct 32.4 L MCV 90 MCH 30.1 MCHC 33.6 RDW 13.6 Plt Count 179 Seg Neutrophils % 90.0 H Lymphocytes % 8.4 L Monocytes % 1.6 L Eosinophils % 0.0 Basophils % 0.0 Absolute Neutrophils 4.4 Absolute Lymphocytes 0.4 L Absolute Monocytes 0.1 Absolute Eosinophils 0.0 Absolute Basophils 0.0 Carbonic Acid 1.03 L HCO3/H2CO3 Ratio 21:1 ABG pH 7.44 ABG pCO2 34.1 L ABG pO2 111.9 H ABG HCO3 22.4 ABG O2 Saturation 98.3 H ABG Base Excess -1.3 FiO2 50% Sodium 139.9 Potassium 4.1 Chloride 109 H Carbon Dioxide 23 Anion Gap 8 BUN 14 Creatinine 0.58 Est GFR ( Amer) > 60 Est GFR (Non-Af Amer) > 60 Glucose 117 H Lactic Acid Calcium 7.8 L Magnesium 1.8 Impressions: Chest/Abdomen CTA 02/22/18 08:04 IMPRESSION: No gross CT angio evidence of acute pulmonary emboli Motion artifact on the study. Question early or developing infiltrates in the bilateral upper lobes. KUB X-Ray 02/22/18 12:57 IMPRESSION: Nasogastric tube tip and side port in the stomach. Interstitial pulmonary edema at the lung base Chest X-Ray 02/23/18 06:00 IMPRESSION: No significant change. Assessment & Plan - Diagnosis (1) Acute and chronic respiratory failure Is this a current diagnosis for this admission?: Yes Plan: no change (2) COPD exacerbation Is this a current diagnosis for this admission?: Yes Plan: unchanged (3) Pneumonia of both upper lobes Qualifiers: Pneumonia type: due to unspecified organism Qualified Code(s): J18.1 - Lobar pneumonia, unspecified organism Is this a current diagnosis for this admission?: Yes Plan: 02/22/18 15:30 Gram Stain - Pending Tracheal Aspirate Sputum Culture - Pending 02/22/18 09:51 Urine Culture - Preliminary Clean Catch Midstream NO GROWTH IN 1 DAY 02/22/18 08:53 Blood Culture - Preliminary Blood NO GROWTH IN 24 HOURS 02/22/18 07:56 Blood Culture - Preliminary Blood NO GROWTH IN 24 HOURS (4) Sepsis Qualifiers: Sepsis type: sepsis due to unspecified organism Qualified Code(s): A41.9 - Sepsis, unspecified organism Is this a current diagnosis for this admission?: Yes - Time Total Critical Time (Minutes): 45
[2018-02-23] MEDS: PANTOPRAZOLE SODIUM 40 MG VIAL IV SCH (10:59)
[2018-02-23] MEDS: PROPOFOL 100 ML IV PRN ×2 (13:00→17:20)
[2018-02-23] MEDS: GABAPENTIN 300 MG CAPSULE PO SCH ×2 (14:30→22:30)
[2018-02-23] MEDS: OXYCODONE-ACETAMINOPHEN 5-325 MG TABLET PO PRN (15:27)
--- NOTE | 2018-02-23 16:17 | PDOC CONSULTATION ---
Consultation Consult Date: 02/22/18 Attending physician:: LEO RANDHAWA Consult reason:: pna/resp failure/sepsis History of Present Illness Admission Date/PCP: 02/22/18 10:42 History of Present Illness: GALI CHURCH JR is a 57 year old male currrently in ICU intubated and sedated Past Medical History Cardiac Medical History: Reports: Hypertension Denies: Myocardial Infarction - History of, Hyperlipidema Pulmonary Medical History: Reports: Chronic Obstructive Pulmonary Disease (COPD) , Respiratory Failure EENT Medical History: Reports: None Neurological Medical History: Reports: None, Seizures - Seizures when drinking states he has not drank in 16 years Endocrine Medical History: Denies: Diabetes Mellitus Type 1, Diabetes Mellitus Type 2, Hyperthyroidism, Hypothyroidism Renal/ Medical History: Reports: None Malignancy Medical History: Reports: None GI Medical History: Denies: Cirrhosis, Gastroesophageal Reflux Disease, Hepatitis Musculoskeltal Medical History: Reports: Arthritis Skin Medical History: Reports: None Psychiatric Medical History: Reports: Bipolar Disorder, Tobacco Dependency Traumatic Medical History: Denies: None Hematology: Reports: None Infectious Medical History: Reports: None Past Surgical History Past Surgical History: Reports: None Social History Information Source: [facility] Records Smoking Status: Current Every Day Smoker Frequency of Alcohol Use: None Drugs: None Hx Prescription Drug Abuse: Yes - Advance Directive Resuscitation Status: Full Code Family History Family History: CAD, Hyperlipidemia, Hypertension Parental Family History Reviewed: No Children Family History Reviewed: No Sibling(s) Family History Reviewed.: No Medication/Allergy Home Medications: Albuterol Sulfate [Proair HFA] 2 puff IH Q4HP PRN 02/22/18 Dextroamphetamine/Amphetamine [Adderall 30 mg Tablet] 30 mg PO QID 02/22/18 Diclofenac Sodium [Voltaren] 75 mg PO BIDP PRN 02/22/18 Gabapentin [Neurontin 300 mg Capsule] 600 mg PO Q8HP PRN 02/22/18 Tiotropium Kingsley [Spiriva Handihaler 18 mcg/dose (30 Dose)] 1 cap IH DAILY Allergies/Adverse Reactions: No Known Allergies Allergy (Verified 02/20/18 23:31) Review of Systems ROS unobtainable: Due to endotracheal tube Physical Exam Vital Signs: Temp Pulse Resp BP Pulse Ox 99.4 F 109 H 28 H 71/45 L 98 02/22/18 11:00 02/22/18 13:50 02/22/18 14:35 02/22/18 14:35 02/22/18 14:35 General appearance: PRESENT: no acute distress, disheveled, thin, well- developed. ABSENT: cooperative Head exam: PRESENT: atraumatic, normocephalic Eye exam: PRESENT: conjunctiva pale. ABSENT: EOMI, nystagmus, periorbital swelling, scleral icterus Mouth exam: PRESENT: dry mucosa, neck supple, tongue midline, other - ET tube Neck exam: ABSENT: carotid bruit, JVD, lymphadenopathy, thyromegaly, tracheal deviation, tracheostomy Respiratory exam: PRESENT: decreased breath sounds, prolonged expiratory phas, rales, rhonchi, symmetrical, unlabored, wheezes. ABSENT: retraction, stridor, tachypnea Cardiovascular exam: PRESENT: RRR, +S1, +S2 Pulses: PRESENT: normal radial pulses GI/Abdominal exam: PRESENT: diminished bowel sounds, soft Extremities exam: ABSENT: clubbing, joint swelling Musculoskeletal exam: ABSENT: deformity, dislocation Neurological exam: ABSENT: awake, oriented to person Skin exam: PRESENT: dry, warm Results Laboratory Results: 02/22/18 02/22/18 11:05 14:46 Carbonic Acid 1.73 H HCO3/H2CO3 Ratio 11:1 ABG pH 7.17 L* ABG pCO2 57.5 H ABG pO2 42.1 L ABG HCO3 20.5 ABG O2 Saturation 64.4 L ABG Base Excess -8.6 FiO2 40% Lactic Acid 0.8 Impressions: Chest X-Ray 02/22/18 07:47 IMPRESSION: COPD. NO ACUTE RADIOGRAPHIC FINDING IN THE CHEST. Chest/Abdomen CTA 02/22/18 08:04 IMPRESSION: No gross CT angio evidence of acute pulmonary emboli Motion artifact on the study. Question early or developing infiltrates in the bilateral upper lobes. KUB X-Ray 02/22/18 12:57 IMPRESSION: Nasogastric tube tip and side port in the stomach. Interstitial pulmonary edema at the lung base Assessment & Plan - Diagnosis (1) Acute and chronic respiratory failure Is this a current diagnosis for this admission?: Yes Plan: no change (2) COPD exacerbation Is this a current diagnosis for this admission?: Yes Plan: unchanged (3) Pneumonia of both upper lobes Qualifiers: Pneumonia type: due to unspecified organism Qualified Code(s): J18.1 - Lobar pneumonia, unspecified organism Is this a current diagnosis for this admission?: Yes Plan: 02/22/18 15:30 Gram Stain - Pending Tracheal Aspirate Sputum Culture - Pending 02/22/18 09:51 Urine Culture - Preliminary Clean Catch Midstream NO GROWTH IN 1 DAY 02/22/18 08:53 Blood Culture - Preliminary Blood NO GROWTH IN 24 HOURS 02/22/18 07:56 Blood Culture - Preliminary Blood NO GROWTH IN 24 HOURS (4) Sepsis Qualifiers: Sepsis type: sepsis due to unspecified organism Qualified Code(s): A41.9 - Sepsis, unspecified organism Is this a current diagnosis for this admission?: Yes - Time Total Critical Time (Minutes): 55
[2018-02-23] MEDS: THIAMINE HCL 100 MG, FOLIC ACID 1 MG in NORMAL SALINE 250 ML IV SCH (17:19)
[2018-02-23] MEDS: OLANZAPINE 5 MG TABLET PO SCH (22:31)
[2018-02-24] MEDS: MIDAZOLAM HCL 50 MG/100 ML RTUINJ IV PRN ×3 (00:04→22:46)
[2018-02-24] MEDS: PIPERACILLIN SODIUM/TAZOBACTAM 3.375 GM in NORMAL SALINE 100 ML IV SCH ×5 (00:04→23:00)
[2018-02-24] MEDS: NORMAL SALINE 1000 ML 1,000 ML IV PRN ×3 (02:51→20:27)
[2018-02-24] MEDS: PROPOFOL 100 ML IV PRN ×4 (03:36→22:00)
[2018-02-24 05:43] LABS: ABSOLUTE LYMPHOCYTES (AUTO) 0.6 10^3/uL (0.5-4.7); ABSOLUTE MONOCYTES (AUTO) 0.2 10^3/uL (0.1-1.4); ABSOLUTE NEUT (AUTO) 7.6 10^3/uL (1.7-8.2); BASOPHILS % (AUTO) 0.1 % (0-2); HEMATOCRIT 31.9 % (37.9-51.0); HEMOGLOBIN 10.8 g/dL (13.5-17.0); LYMPHOCYTES % (AUTO) 7.4 % (13-45); MEAN CORPUSCULAR HEMOGLOBIN 30.2 pg (27.0-33.4); MEAN CORPUSCULAR HGB CONC 33.8 g/dL (32.0-36.0); MEAN CORPUSCULAR VOLUME 89 fl (80-97); MONOCYTES % (AUTO) 2.8 % (3-13); PLATELET COUNT 207 10^3/uL (150-450); RED BLOOD COUNT 3.57 10^6/uL (4.35-5.55); RED CELL DISTRIBUTION WIDTH 13.8 % (11.5-14.0); SEGMENTED NEUTROPHILS % (AUTO) 89.7 % (42-78); TOTAL CELLS COUNTED % (AUTO) 100 %; WHITE BLOOD COUNT 8.4 10^3/uL (4.0-10.5)
[2018-02-24] MEDS: METHYLPREDNISOLONE INJ 40 MG/1 ML SDV IV SCH ×3 (05:44→21:54)
[2018-02-24] MEDS: GABAPENTIN 300 MG CAPSULE PO SCH ×3 (05:44→21:54)
[2018-02-24] MEDS: HEPARIN SOD (PORCINE) 5,000 UNIT/ML 1 ML SYRINGE SUBCUT SCH ×3 (05:45→21:54)
[2018-02-24 06:00] LABS: ARTERIAL BLOOD BASE EXCESS -1.6 mmol/L; ARTERIAL BLOOD H2CO3 0.97 mmol/L (1.05-1.35); ARTERIAL BLOOD HCO3 21.8 mmol/L (20-26); ARTERIAL BLOOD O2 SATURATION 98.7 % (94-98); ARTERIAL BLOOD PCO2 32.2 mmHg (35-45); ARTERIAL BLOOD PH 7.45 (7.35-7.45); ARTERIAL BLOOD PO2 129.6 mmHg (80-100); ARTERIAL BLOOD TOTAL CO2 22.8 mmol/L (23-27)
[2018-02-24 06:08] LABS: ARTERIAL BLOOD FIO2 35%
--- NOTE | 2018-02-24 06:15 | RADIOLOGY REPORT (SQ) ---
EXAM DESCRIPTION: CHEST SINGLE VIEW CLINICAL HISTORY: 57 years Male, pna/resp fail COMPARISON: 4.14.18 NUMBER OF VIEWS/TECHNIQUE: 1/AP LIMITATIONS: None. FINDINGS: Prominent interstitium, normal cardiac silhouette, adequate appearing endotracheal tube tip is 8.6 cm from the kali, likely adequate enteric tube obscured distally, right jugular central line tip at the cavoatrial junction. No pneumothorax. No acute bone defect. IMPRESSION: No significant change.
[2018-02-24 06:34] LABS: ALANINE AMINOTRANSFERASE 66 U/L (21-72); ALBUMIN 2.4 g/dL (3.5-5.0); ALKALINE PHOSPHATASE 178 U/L (38-126); ANION GAP 8 (5-19); ASPARTATE AMINO TRANSFERASE 26 U/L (17-59); BILIRUBIN,DIRECT 0.1 mg/dL (0.0-0.4); BILIRUBIN,TOTAL 0.1 mg/dL (0.2-1.3); BLOOD UREA NITROGEN 16 mg/dL (7-20); CALCIUM 8.1 mg/dL (8.4-10.2); CARBON DIOXIDE 23 mmol/L (22-30); CHLORIDE 111 mmol/L (98-107); GLUCOSE 131 mg/dL (75-110); POTASSIUM 3.9 mmol/L (3.6-5.0); SODIUM 141.5 mmol/L (137-145); TOTAL PROTEIN 4.7 g/dL (6.3-8.2)
[2018-02-24] MEDS: IPRATROPIUM/ALBUTEROL 0.5-2.5 MG/3 ML AMPUL NEB SCH ×3 (07:55→19:54)
[2018-02-24] MEDS: PANTOPRAZOLE SODIUM 40 MG VIAL IV SCH (09:18)
[2018-02-24] MEDS: AZITHROMYCIN 500 MG in NORMAL SALINE 250 ML IV SCH (09:19)
[2018-02-24] MEDS ORDERED: AZITHROMYCIN 500 MG in DEXTROSE 5%-WATER 250 ML IV SCH (10:00)
[2018-02-24] MEDS: OXYCODONE-ACETAMINOPHEN 5-325 MG TABLET PO PRN (12:29)
--- NOTE | 2018-02-24 13:55 | PDOC PROGRESS REPORT ---
Subjective Progress Note for:: 02/24/18 Subjective:: 57-year-old male with past medical history of Hypertension COPD Alcohol withdrawal seizures more than 16 years ago Bipolar disorder Tobacco use He presented to the hospital on February 22 with shortness of breath and was noted to be hypoxic with sats of 70% on room air. He was diagnosed with acute respiratory failure given Rocephin and intubated in the emergency room. History could not be obtained due to patient's mental status. The patient did well with a trial of weaning. He has not required pressors. Reason For Visit: SEPSIS,ACUTE ON CHRONIC RESPIRATORY FAILURE Physical Exam Vital Signs: Temp Pulse Resp BP Pulse Ox 97.2 F 81 19 139/88 H 100 02/24/18 10:14 02/24/18 10:00 02/24/18 10:14 02/24/18 10:14 02/24/18 12:01 Intake & Output 02/23/18 02/24/18 02/25/18 06:59 06:59 06:59 Intake Total 3238 4303 Output Total 1100 825 220 Balance 2138 3478 -220 Weight 68.8 kg 73 kg General appearance: PRESENT: no acute distress Head exam: PRESENT: normocephalic Eye exam: PRESENT: PERRLA Ear exam: PRESENT: normal external ear exam Mouth exam: PRESENT: neck supple Neck exam: ABSENT: tracheal deviation Respiratory exam: PRESENT: symmetrical. ABSENT: crackles, rhonchi Vascular exam: ABSENT: pallor GI/Abdominal exam: PRESENT: normal bowel sounds, soft. ABSENT: tenderness Rectal exam: PRESENT: deferred Gentrourinary exam: PRESENT: indwelling catheter Extremities exam: ABSENT: calf tenderness, pedal edema Neurological exam: PRESENT: other - sedated Psychiatric exam: PRESENT: other - sedated Skin exam: ABSENT: petechiae Results Laboratory Results: 02/24/18 05:27 02/24/18 05:27 02/24/18 02/24/18 02/24/18 05:27 05:27 05:27 WBC 8.4 RBC 3.57 L Hgb 10.8 L Hct 31.9 L MCV 89 MCH 30.2 MCHC 33.8 RDW 13.8 Plt Count 207 Seg Neutrophils % 89.7 H Lymphocytes % 7.4 L Monocytes % 2.8 L Eosinophils % 0.0 Basophils % 0.1 Absolute Neutrophils 7.6 Absolute Lymphocytes 0.6 Absolute Monocytes 0.2 Absolute Eosinophils 0.0 Absolute Basophils 0.0 Carbonic Acid 0.97 L HCO3/H2CO3 Ratio 22:1 ABG pH 7.45 ABG pCO2 32.2 L ABG pO2 129.6 H ABG HCO3 21.8 ABG O2 Saturation 98.7 H ABG Base Excess -1.6 FiO2 35% Sodium 141.5 Potassium 3.9 Chloride 111 H Carbon Dioxide 23 Anion Gap 8 BUN 16 Creatinine 0.70 Est GFR ( Amer) > 60 Est GFR (Non-Af Amer) > 60 Glucose 131 H Calcium 8.1 L Magnesium 2.5 H Total Bilirubin 0.1 L AST 26 ALT 66 Alkaline Phosphatase 178 H Total Protein 4.7 L Albumin 2.4 L Impressions: Chest/Abdomen CTA 02/22/18 08:04 IMPRESSION: No gross CT angio evidence of acute pulmonary emboli Motion artifact on the study. Question early or developing infiltrates in the bilateral upper lobes. KUB X-Ray 02/22/18 12:57 IMPRESSION: Nasogastric tube tip and side port in the stomach. Interstitial pulmonary edema at the lung base Chest X-Ray 02/24/18 06:00 IMPRESSION: No significant change. Assessment & Plan - Diagnosis (1) Acute hypoxemic respiratory failure Is this a current diagnosis for this admission?: Yes Plan: Continue ventilator support antibiotics, nebs as needed (2) COPD exacerbation Is this a current diagnosis for this admission?: Yes Plan: On IV steroids and nebulizers (3) Pneumonia of both upper lobes Qualifiers: Pneumonia type: due to unspecified organism Qualified Code(s): J18.1 - Lobar pneumonia, unspecified organism Is this a current diagnosis for this admission?: Yes Plan: Day 3 of Zosyn. day 2 Azithromycin for coverage of atypical bacteria. Follow up on sputum cultures. (4) Bipolar 1 disorder Is this a current diagnosis for this admission?: Yes Plan: Outpatient medications will be resumed once reconciled. (5) Nicotine dependence Is this a current diagnosis for this admission?: Yes Plan: No plans for now. Sedated on vent. (6) Hypomagnesemia Is this a current diagnosis for this admission?: Yes Plan: Repleted (7) DVT prophylaxis Is this a current diagnosis for this admission?: Yes Plan: Heparin subcutaneous (8) At risk for stress ulcer Is this a current diagnosis for this admission?: Yes Plan: PPI. (9) On tube feeding diet Is this a current diagnosis for this admission?: Yes - Time Time Spent with patient: 35 or more minutes
--- NOTE | 2018-02-24 15:52 | PDOC PROGRESS REPORT ---
Subjective Progress Note for:: 02/24/18 Subjective:: intubated Reason For Visit: SEPSIS,ACUTE ON CHRONIC RESPIRATORY FAILURE Physical Exam Vital Signs: Temp Pulse Resp BP Pulse Ox 97.2 F 81 19 139/88 H 100 02/24/18 10:14 02/24/18 10:00 02/24/18 10:14 02/24/18 10:14 02/24/18 12:01 Intake & Output 02/23/18 02/24/18 02/25/18 06:59 06:59 06:59 Intake Total 3238 4303 Output Total 1100 825 145 Balance 2138 3478 -145 Weight 68.8 kg 73 kg General appearance: PRESENT: no acute distress, disheveled, well-developed, well -nourished. ABSENT: cooperative Head exam: PRESENT: atraumatic, normocephalic Eye exam: PRESENT: conjunctiva pale. ABSENT: EOMI, nystagmus, periorbital swelling, scleral icterus Mouth exam: PRESENT: dry mucosa, neck supple, tongue midline, other - ET tube Neck exam: ABSENT: carotid bruit, JVD, lymphadenopathy, thyromegaly, tracheal deviation, tracheostomy Respiratory exam: PRESENT: decreased breath sounds, prolonged expiratory phas, rales, rhonchi, symmetrical, unlabored. ABSENT: retraction, stridor, tachypnea Cardiovascular exam: PRESENT: RRR, +S1, +S2, tachycardia Pulses: PRESENT: normal radial pulses GI/Abdominal exam: PRESENT: diminished bowel sounds, soft Gentrourinary exam: PRESENT: indwelling catheter Extremities exam: ABSENT: clubbing, full ROM, joint swelling Musculoskeletal exam: ABSENT: ambulatory, deformity, dislocation, full ROM Neurological exam: ABSENT: awake, oriented to person Skin exam: PRESENT: dry, warm Results Laboratory Results: 02/24/18 05:27 02/24/18 05:27 02/24/18 02/24/18 02/24/18 05:27 05:27 05:27 WBC 8.4 RBC 3.57 L Hgb 10.8 L Hct 31.9 L MCV 89 MCH 30.2 MCHC 33.8 RDW 13.8 Plt Count 207 Seg Neutrophils % 89.7 H Lymphocytes % 7.4 L Monocytes % 2.8 L Eosinophils % 0.0 Basophils % 0.1 Absolute Neutrophils 7.6 Absolute Lymphocytes 0.6 Absolute Monocytes 0.2 Absolute Eosinophils 0.0 Absolute Basophils 0.0 Carbonic Acid 0.97 L HCO3/H2CO3 Ratio 22:1 ABG pH 7.45 ABG pCO2 32.2 L ABG pO2 129.6 H ABG HCO3 21.8 ABG O2 Saturation 98.7 H ABG Base Excess -1.6 FiO2 35% Sodium 141.5 Potassium 3.9 Chloride 111 H Carbon Dioxide 23 Anion Gap 8 BUN 16 Creatinine 0.70 Est GFR ( Amer) > 60 Est GFR (Non-Af Amer) > 60 Glucose 131 H Calcium 8.1 L Magnesium 2.5 H Total Bilirubin 0.1 L AST 26 ALT 66 Alkaline Phosphatase 178 H Total Protein 4.7 L Albumin 2.4 L Impressions: Chest/Abdomen CTA 02/22/18 08:04 IMPRESSION: No gross CT angio evidence of acute pulmonary emboli Motion artifact on the study. Question early or developing infiltrates in the bilateral upper lobes. KUB X-Ray 02/22/18 12:57 IMPRESSION: Nasogastric tube tip and side port in the stomach. Interstitial pulmonary edema at the lung base Chest X-Ray 02/24/18 06:00 IMPRESSION: No significant change. Assessment & Plan - Diagnosis (1) Acute and chronic respiratory failure Is this a current diagnosis for this admission?: Yes Plan: no change (2) COPD exacerbation Is this a current diagnosis for this admission?: Yes Plan: unchanged (3) Pneumonia of both upper lobes Qualifiers: Pneumonia type: due to unspecified organism Qualified Code(s): J18.1 - Lobar pneumonia, unspecified organism Is this a current diagnosis for this admission?: Yes Plan: 02/22/18 15:30 Gram Stain - Pending Tracheal Aspirate Sputum Culture - Pending 02/22/18 09:51 Urine Culture - Preliminary Clean Catch Midstream NO GROWTH IN 1 DAY 02/22/18 08:53 Blood Culture - Preliminary Blood NO GROWTH IN 24 HOURS 02/22/18 07:56 Blood Culture - Preliminary Blood NO GROWTH IN 24 HOURS (4) Sepsis Qualifiers: Sepsis type: sepsis due to unspecified organism Qualified Code(s): A41.9 - Sepsis, unspecified organism Is this a current diagnosis for this admission?: Yes - Time Total Critical Time (Minutes): 45
[2018-02-24] MEDS: THIAMINE HCL 100 MG, FOLIC ACID 1 MG in NORMAL SALINE 250 ML IV SCH (17:19)
[2018-02-24] MEDS: NORMAL SALINE INJ/PF 0.9% 10 ML SDV IV PRN (21:54)
[2018-02-24] MEDS: OLANZAPINE 5 MG TABLET PO SCH (21:54)
[2018-02-25] MEDS: PROPOFOL 100 ML IV PRN ×5 (02:10→22:06)
[2018-02-25] MEDS: PIPERACILLIN SODIUM/TAZOBACTAM 3.375 GM in NORMAL SALINE 100 ML IV SCH ×4 (05:05→23:53)
[2018-02-25] MEDS: NORMAL SALINE 1000 ML 1,000 ML IV PRN (05:05)
[2018-02-25] MEDS: METHYLPREDNISOLONE INJ 40 MG/1 ML SDV IV SCH ×3 (05:08→22:05)
[2018-02-25] MEDS: GABAPENTIN 300 MG CAPSULE PO SCH ×3 (05:08→22:06)
[2018-02-25] MEDS: NORMAL SALINE INJ/PF 0.9% 10 ML SDV IV PRN ×2 (05:09→14:47)
[2018-02-25] MEDS: HEPARIN SOD (PORCINE) 5,000 UNIT/ML 1 ML SYRINGE SUBCUT SCH ×3 (05:09→22:06)
[2018-02-25 05:37] LABS: ARTERIAL BLOOD BASE EXCESS -1.1 mmol/L; ARTERIAL BLOOD FIO2 30%; ARTERIAL BLOOD H2CO3 0.86 mmol/L (1.05-1.35); ARTERIAL BLOOD HCO3 21.3 mmol/L (20-26); ARTERIAL BLOOD O2 SATURATION 98.5 % (94-98); ARTERIAL BLOOD PCO2 28.7 mmHg (35-45); ARTERIAL BLOOD PH 7.49 (7.35-7.45); ARTERIAL BLOOD PO2 112.9 mmHg (80-100); ARTERIAL BLOOD TOTAL CO2 22.2 mmol/L (23-27)
[2018-02-25 05:39] LABS: ABSOLUTE LYMPHOCYTES (AUTO) 0.6 10^3/uL (0.5-4.7); ABSOLUTE MONOCYTES (AUTO) 0.3 10^3/uL (0.1-1.4); BASOPHILS % (AUTO) 0.1 % (0-2); HEMATOCRIT 30.9 % (37.9-51.0); HEMOGLOBIN 10.5 g/dL (13.5-17.0); LYMPHOCYTES % (AUTO) 6.2 % (13-45); MEAN CORPUSCULAR HEMOGLOBIN 30.3 pg (27.0-33.4); MEAN CORPUSCULAR HGB CONC 33.9 g/dL (32.0-36.0); MEAN CORPUSCULAR VOLUME 89 fl (80-97); MONOCYTES % (AUTO) 3.9 % (3-13); PLATELET COUNT 209 10^3/uL (150-450); RED BLOOD COUNT 3.47 10^6/uL (4.35-5.55); RED CELL DISTRIBUTION WIDTH 13.9 % (11.5-14.0); SEGMENTED NEUTROPHILS % (AUTO) 89.8 % (42-78); TOTAL CELLS COUNTED % (AUTO) 100 %
--- NOTE | 2018-02-25 07:00 | RADIOLOGY REPORT (SQ) ---
EXAM DESCRIPTION: CHEST SINGLE VIEW CLINICAL HISTORY: 57 years Male, pna resp failure COMPARISON: 4.15.18 NUMBER OF VIEWS/TECHNIQUE: 1/AP FINDINGS: Mild patchy opacity of the right upper hemithorax, moderate patchy opacity of the left lung base, normal cardiac silhouette, adequate appearing endotracheal tube tip is 7.3 cm from the kali, likely adequate enteric tube obscured distally, right jugular central line tip at the upper right atrium, and rotation artifact. No pneumothorax. No acute bone defect. IMPRESSION: Interval worsening includes bilateral pneumonia/atelectasis.
[2018-02-25 07:22] LABS: ANION GAP 8 (5-19); BLOOD UREA NITROGEN 23 mg/dL (7-20); CALCIUM 7.9 mg/dL (8.4-10.2); CARBON DIOXIDE 22 mmol/L (22-30); CHLORIDE 113 mmol/L (98-107); GLUCOSE 109 mg/dL (75-110); POTASSIUM 3.9 mmol/L (3.6-5.0); SODIUM 142.6 mmol/L (137-145); TRIGLYCERIDES 100 mg/dL (<150)
[2018-02-25] MEDS ORDERED: POTASSIUM CHLORIDE 20 MEQ/50 ML RTU IV SCH (08:00)
[2018-02-25] MEDS: IPRATROPIUM/ALBUTEROL 0.5-2.5 MG/3 ML AMPUL NEB SCH ×3 (08:33→19:42)
[2018-02-25] MEDS: PANTOPRAZOLE SODIUM 40 MG VIAL IV SCH (08:56)
[2018-02-25] MEDS: AZITHROMYCIN 500 MG in NORMAL SALINE 250 ML IV SCH (08:57)
--- NOTE | 2018-02-25 10:04 | PDOC PROGRESS REPORT ---
Subjective Progress Note for:: 02/25/18 Subjective:: 57-year-old male with past medical history of Hypertension COPD Alcohol withdrawal seizures more than 16 years ago Bipolar disorder Tobacco use He presented to the hospital on February 22 with shortness of breath and was noted to be hypoxic with sats of 70% on room air. He was diagnosed with acute respiratory failure given Rocephin and intubated in the emergency room. History could not be obtained due to patient's mental status. The patient is doing well on a trial of weaning. Plan to hopefully extubate today Reason For Visit: SEPSIS,ACUTE ON CHRONIC RESPIRATORY FAILURE Physical Exam Vital Signs: Temp Pulse Resp BP Pulse Ox 98.1 F 92 24 H 140/82 H 100 02/25/18 08:00 02/25/18 08:33 02/25/18 08:33 02/25/18 07:47 02/25/18 08:33 Intake & Output 02/24/18 02/25/18 02/26/18 06:59 06:59 06:59 Intake Total 4303 4722 Output Total 825 1195 225 Balance 3478 3527 -225 Weight 73 kg 75.8 kg General appearance: PRESENT: no acute distress Head exam: PRESENT: normocephalic Eye exam: PRESENT: PERRLA Ear exam: PRESENT: normal external ear exam Neck exam: ABSENT: tracheal deviation Respiratory exam: PRESENT: clear to auscultation nyasia, symmetrical, unlabored Cardiovascular exam: PRESENT: RRR GI/Abdominal exam: PRESENT: normal bowel sounds, soft. ABSENT: tenderness Rectal exam: PRESENT: deferred Gentrourinary exam: PRESENT: indwelling catheter Extremities exam: ABSENT: calf tenderness - Intubated Results Laboratory Results: 02/25/18 05:25 02/25/18 05:25 02/25/18 02/25/18 02/25/18 05:25 05:25 05:25 WBC 9.0 RBC 3.47 L Hgb 10.5 L Hct 30.9 L MCV 89 MCH 30.3 MCHC 33.9 RDW 13.9 Plt Count 209 Seg Neutrophils % 89.8 H Lymphocytes % 6.2 L Monocytes % 3.9 Eosinophils % 0.0 Basophils % 0.1 Absolute Neutrophils 8.0 Absolute Lymphocytes 0.6 Absolute Monocytes 0.3 Absolute Eosinophils 0.0 Absolute Basophils 0.0 Carbonic Acid 0.86 L HCO3/H2CO3 Ratio 24:1 ABG pH 7.49 H ABG pCO2 28.7 L ABG pO2 112.9 H ABG HCO3 21.3 ABG O2 Saturation 98.5 H ABG Base Excess -1.1 FiO2 30% Sodium 142.6 Potassium 3.9 Chloride 113 H Carbon Dioxide 22 Anion Gap 8 BUN 23 H Creatinine 0.76 Est GFR ( Amer) > 60 Est GFR (Non-Af Amer) > 60 Glucose 109 Calcium 7.9 L Magnesium 2.5 H Triglycerides 100 Impressions: Chest/Abdomen CTA 02/22/18 08:04 IMPRESSION: No gross CT angio evidence of acute pulmonary emboli Motion artifact on the study. Question early or developing infiltrates in the bilateral upper lobes. KUB X-Ray 02/22/18 12:57 IMPRESSION: Nasogastric tube tip and side port in the stomach. Interstitial pulmonary edema at the lung base Chest X-Ray 02/25/18 06:00 IMPRESSION: Interval worsening includes bilateral pneumonia/atelectasis. Assessment & Plan - Diagnosis (1) Acute hypoxemic respiratory failure Is this a current diagnosis for this admission?: Yes Plan: Wean as tolerated, nebs, day 4 of antibiotics (2) COPD exacerbation Is this a current diagnosis for this admission?: Yes Plan: taper IV steroids and continue nebulizers (3) Pneumonia of both upper lobes Qualifiers: Pneumonia type: due to unspecified organism Qualified Code(s): J18.1 - Lobar pneumonia, unspecified organism Is this a current diagnosis for this admission?: Yes Plan: Day 4 of Zosyn. day 3 Azithromycin for coverage of atypical bacteria. Follow up on sputum cultures. (4) Bipolar 1 disorder Is this a current diagnosis for this admission?: Yes Plan: Outpatient medications will be resumed once reconciled. (5) Nicotine dependence Is this a current diagnosis for this admission?: Yes Plan: No plans for now. Sedated on vent. (6) Hypomagnesemia Is this a current diagnosis for this admission?: Yes Plan: Repleted (7) DVT prophylaxis Is this a current diagnosis for this admission?: Yes Plan: Heparin subcutaneous (8) At risk for stress ulcer Is this a current diagnosis for this admission?: Yes Plan: PPI. (9) On tube feeding diet Is this a current diagnosis for this admission?: Yes - Time Time Spent with patient: 35 or more minutes
--- NOTE | 2018-02-25 11:20 | PDOC PROGRESS REPORT ---
Subjective Progress Note for:: 02/25/18 Subjective:: intubated Reason For Visit: SEPSIS,ACUTE ON CHRONIC RESPIRATORY FAILURE Physical Exam Vital Signs: Temp Pulse Resp BP Pulse Ox 98.1 F 71 24 H 140/82 H 100 02/25/18 08:00 02/25/18 08:17 02/25/18 08:00 02/25/18 07:47 02/25/18 08:00 Intake & Output 02/24/18 02/25/18 02/26/18 06:59 06:59 06:59 Intake Total 4303 4722 Output Total 825 1195 225 Balance 3478 3527 -225 Weight 73 kg 75.8 kg General appearance: PRESENT: no acute distress, disheveled, thin, well- developed. ABSENT: cooperative Head exam: PRESENT: atraumatic, normocephalic Eye exam: PRESENT: conjunctiva pale. ABSENT: EOMI, nystagmus, periorbital swelling, scleral icterus Mouth exam: PRESENT: dry mucosa, neck supple, tongue midline, other - ET tube in place Neck exam: ABSENT: carotid bruit, JVD, lymphadenopathy, thyromegaly, tracheal deviation, tracheostomy Respiratory exam: PRESENT: decreased breath sounds, prolonged expiratory phas, rhonchi, symmetrical, tachypnea, wheezes. ABSENT: stridor Cardiovascular exam: PRESENT: RRR, +S1, +S2, tachycardia Pulses: PRESENT: normal radial pulses GI/Abdominal exam: PRESENT: diminished bowel sounds, soft Extremities exam: ABSENT: clubbing, joint swelling, pedal edema Musculoskeletal exam: ABSENT: ambulatory, deformity, dislocation Neurological exam: ABSENT: awake, oriented to person Skin exam: PRESENT: dry, warm Results Laboratory Results: 02/25/18 05:25 02/25/18 05:25 02/25/18 02/25/18 02/25/18 05:25 05:25 05:25 WBC 9.0 RBC 3.47 L Hgb 10.5 L Hct 30.9 L MCV 89 MCH 30.3 MCHC 33.9 RDW 13.9 Plt Count 209 Seg Neutrophils % 89.8 H Lymphocytes % 6.2 L Monocytes % 3.9 Eosinophils % 0.0 Basophils % 0.1 Absolute Neutrophils 8.0 Absolute Lymphocytes 0.6 Absolute Monocytes 0.3 Absolute Eosinophils 0.0 Absolute Basophils 0.0 Carbonic Acid 0.86 L HCO3/H2CO3 Ratio 24:1 ABG pH 7.49 H ABG pCO2 28.7 L ABG pO2 112.9 H ABG HCO3 21.3 ABG O2 Saturation 98.5 H ABG Base Excess -1.1 FiO2 30% Sodium 142.6 Potassium 3.9 Chloride 113 H Carbon Dioxide 22 Anion Gap 8 BUN 23 H Creatinine 0.76 Est GFR ( Amer) > 60 Est GFR (Non-Af Amer) > 60 Glucose 109 Calcium 7.9 L Magnesium 2.5 H Triglycerides 100 Impressions: Chest/Abdomen CTA 02/22/18 08:04 IMPRESSION: No gross CT angio evidence of acute pulmonary emboli Motion artifact on the study. Question early or developing infiltrates in the bilateral upper lobes. KUB X-Ray 02/22/18 12:57 IMPRESSION: Nasogastric tube tip and side port in the stomach. Interstitial pulmonary edema at the lung base Chest X-Ray 02/25/18 06:00 IMPRESSION: Interval worsening includes bilateral pneumonia/atelectasis. Assessment & Plan - Diagnosis (1) Acute and chronic respiratory failure Is this a current diagnosis for this admission?: Yes Plan: Improving (2) COPD exacerbation Is this a current diagnosis for this admission?: Yes Plan: unchanged (3) Pneumonia of both upper lobes Qualifiers: Pneumonia type: due to unspecified organism Qualified Code(s): J18.1 - Lobar pneumonia, unspecified organism Is this a current diagnosis for this admission?: Yes Plan: WBC normal minimal shift; a ABG within normal limits, negative cultures thus far (4) Sepsis Qualifiers: Sepsis type: sepsis due to unspecified organism Qualified Code(s): A41.9 - Sepsis, unspecified organism Is this a current diagnosis for this admission?: Yes - Time Total Critical Time (Minutes): 40
[2018-02-25 16:38] LABS: ARTERIAL BLOOD BASE EXCESS 0 mmol/L; ARTERIAL BLOOD H2CO3 0.94 mmol/L (1.05-1.35); ARTERIAL BLOOD HCO3 22.7 mmol/L (20-26); ARTERIAL BLOOD O2 SATURATION 98.7 % (94-98); ARTERIAL BLOOD PCO2 31.3 mmHg (35-45); ARTERIAL BLOOD PH 7.48 (7.35-7.45); ARTERIAL BLOOD PO2 123.1 mmHg (80-100); ARTERIAL BLOOD TOTAL CO2 23.6 mmol/L (23-27)
[2018-02-25 16:47] LABS: ARTERIAL BLOOD FIO2 40%
[2018-02-25] MEDS: THIAMINE HCL 100 MG, FOLIC ACID 1 MG in NORMAL SALINE 250 ML IV SCH (17:16)
[2018-02-25] MEDS: MIDAZOLAM HCL 50 MG/100 ML RTUINJ IV PRN (17:36)
[2018-02-25] MEDS: OXYCODONE-ACETAMINOPHEN 5-325 MG TABLET PO PRN (18:00)
[2018-02-25] MEDS: OLANZAPINE 5 MG TABLET PO SCH (22:06)
[2018-02-26] MEDS: PROPOFOL 100 ML IV PRN ×7 (00:52→23:40)
[2018-02-26] MEDS: MIDAZOLAM HCL 50 MG/100 ML RTUINJ IV PRN (03:28)
[2018-02-26] MEDS: HEPARIN SOD (PORCINE) 5,000 UNIT/ML 1 ML SYRINGE SUBCUT SCH (05:19)
[2018-02-26] MEDS: PIPERACILLIN SODIUM/TAZOBACTAM 3.375 GM in NORMAL SALINE 100 ML IV SCH ×3 (05:20→17:24)
[2018-02-26] MEDS: METHYLPREDNISOLONE INJ 40 MG/1 ML SDV IV SCH ×3 (05:20→21:00)
[2018-02-26] MEDS: GABAPENTIN 300 MG CAPSULE PO SCH ×3 (05:20→21:01)
[2018-02-26 05:45] LABS: ARTERIAL BLOOD BASE EXCESS 1.2 mmol/L; ARTERIAL BLOOD H2CO3 1.14 mmol/L (1.05-1.35); ARTERIAL BLOOD HCO3 25.2 mmol/L (20-26); ARTERIAL BLOOD PH 7.44 (7.35-7.45); ARTERIAL BLOOD PO2 147.3 mmHg (80-100); ARTERIAL BLOOD TOTAL CO2 26.4 mmol/L (23-27)
[2018-02-26 05:47] LABS: ARTERIAL BLOOD FIO2 40%
[2018-02-26 05:52] LABS: HEMATOCRIT 34.1 % (37.9-51.0); HEMOGLOBIN 11.5 g/dL (13.5-17.0); MEAN CORPUSCULAR HEMOGLOBIN 30.1 pg (27.0-33.4); MEAN CORPUSCULAR HGB CONC 33.7 g/dL (32.0-36.0); MEAN CORPUSCULAR VOLUME 90 fl (80-97); PLATELET COUNT 224 10^3/uL (150-450); RED BLOOD COUNT 3.81 10^6/uL (4.35-5.55); RED CELL DISTRIBUTION WIDTH 13.9 % (11.5-14.0); WHITE BLOOD COUNT 8.3 10^3/uL (4.0-10.5)
[2018-02-26 06:14] LABS: ALANINE AMINOTRANSFERASE 46 U/L (21-72); ALBUMIN 2.5 g/dL (3.5-5.0); ALKALINE PHOSPHATASE 137 U/L (38-126); ASPARTATE AMINO TRANSFERASE 19 U/L (17-59); BILIRUBIN,DIRECT 0.2 mg/dL (0.0-0.4); BILIRUBIN,TOTAL 0.2 mg/dL (0.2-1.3); BLOOD UREA NITROGEN 25 mg/dL (7-20); CALCIUM 8.2 mg/dL (8.4-10.2); GLUCOSE 114 mg/dL (75-110); TOTAL PROTEIN 4.5 g/dL (6.3-8.2)
[2018-02-26 06:19] LABS: CARBON DIOXIDE 27 mmol/L (22-30); CHLORIDE 111 mmol/L (98-107); SODIUM 143.4 mmol/L (137-145)
[2018-02-26 06:20] LABS: ANION GAP 5 (5-19)
--- NOTE | 2018-02-26 06:24 | RADIOLOGY REPORT (SQ) ---
EXAM DESCRIPTION: CHEST SINGLE VIEW CLINICAL HISTORY: resp fail COMPARISON: 02/25/2018 FINDINGS: Single frontal view of the chest. Endotracheal tube, NG tube, and right IJ central venous catheter are unchanged. Small left pleural effusion and left basilar opacities. Heart is not enlarged. No pneumothorax. Improved aeration of the right upper lung. No acute osseous abnormalities. Upper abdominal soft tissues are unremarkable. IMPRESSION: 1. Improved aeration of the right upper lung. Persistent left basilar opacities and small left pleural effusion.
[2018-02-26 06:33] LABS: ABSOLUTE LYMPHOCYTES# (MANUAL) 1.2 10^3/uL (0.5-4.7); ABSOLUTE MONOCYTES # (MANUAL) 0.3 10^3/uL (0.1-1.4); ABSOLUTE NEUTROPHILS# (MANUAL) 6.7 10^3/uL (1.7-8.2); BASOPHILS % (MANUAL) 0 % (0-2); EOSINOPHILS % (MANUAL) 0 % (0-6); LYMPHOCYTES % (MANUAL) 15 % (13-45); MONOCYTES % (MANUAL) 4 % (3-13); SEGMENTED NEUTROPHILS % (MAN) 81 % (42-78); TOTAL CELLS COUNTED 100
[2018-02-26 06:34] LABS: PLATELET COMMENT ADEQUATE; RBC MORPHOLOGY COMMENT NORMO-CYTIC/CHROMIC
[2018-02-26] MEDS: IPRATROPIUM/ALBUTEROL 0.5-2.5 MG/3 ML AMPUL NEB SCH ×3 (08:06→19:39)
--- NOTE | 2018-02-26 09:45 | XCELERA REPORT ---
[address] [address] Transthoracic Echocardiogram Report Name: GALI CHURCH JR Age: 57 yrs Gender: Male : 1960 Patient Status: Inpatient Patient Location: ICU^601^A Study Date: 02/25/2018 10:05 AM Height: 72 in Weight: 145 lb BSA: 1.9 m2 Procedure: A complete two-dimensional transthoracic echocardiogram was performed (2D, M-mode, spectral and color flow Doppler). The study was technically adequate with some images being suboptimal in quality. Reason For Study: interstitial edema Ordering Physician: LEO RANDHAWA Performed By: Rosa Isela Storey Interpretation Summary LV EF is 35% Left ventricular systolic function is moderately reduced. There is borderline concentric left ventricular hypertrophy. The left ventricle is mildly dilated. Doppler measurements suggest pseudonormalized left ventricular relaxation, which is associated with grade II/IV or mild to moderate diastolic dysfunction There is moderate global hypokinesis of the left ventricle. The right ventricular systolic function is normal. The left atrium is mildly dilated. The right atrium is normal in size There is a moderate to severe amount of mitral regurgitation There is no mitral valve stenosis. No aortic regurgitation is present. There is no aortic valve stenosis There is a mild amount of tricuspid regurgitation There is moderate pulmonary hypertension by echo Right ventricular systolic pressure is estimated to be elevated at 50- 60mmHg. The aortic root is not well visualized but is probably normal size. The inferior vena cava appeared normal and decreased < 50% with respiration (RAP 10-15 mmHg) There is no pericardial effusion. MMode/2D Measurements & Calculations RVDd: 3.1 cm LVIDd: 6.1 cm FS: 17.5 % EPSS: 1.8 cm IVSd: 0.97 cm LVIDs: 5.0 cm EDV(Teich): 183.8 ml MV Diam: 2.6 cm LVPWd: 0.97 cm ESV(Teich): 118.1 ml EF(Teich): 35.7 % Ao root diam: LVLd ap4: 8.3 cm SV(MOD-sp4): 51.0 ml LA A2Cs: 2.9 cm EDV(MOD-sp4): 28.2 cm2 Ao root area: 164.0 ml 6.5 cm2 LVLs ap4: 8.2 cm LA dimension: ESV(MOD-sp4): 4.2 cm 113.0 ml EF(MOD-sp4): 31.1 % LA A4Cs: 19.0 cm2 LA length: 5.2 cm LA Vol Index (BP): LA Volume: 47.0 ml/m2 87.2 ml Doppler Measurements & Calculations MV E max ana: MV area (1 diam): MV P1/2t max ana: Ao V2 max: 97.2 cm/sec 98.2 cm/sec 116.4 cm/sec MV A max ana: 5.2 cm2 MV P1/2t: 53.9 msec Ao max P.5 cm/sec MV Flow area 5.4 mmHg MV E/A: 0.86 (1diam): 5.2 cm2 MVA(P1/2t): 4.1 cm2 MV dec slope: 533.6 cm/sec2 MV dec time: 0.16 sec LV V1 max PG: MR max ana: PA V2 max: TR max ana: 4.5 mmHg 531.3 cm/sec 60.2 cm/sec 330.1 cm/sec LV V1 max: MR max PG: PA max P.5 mmHg TR max P.6 cm/sec 112.9 mmHg 43.6 mmHg Left Ventricle The left ventricle is mildly dilated. There is borderline concentric left ventricular hypertrophy. Left ventricular systolic function is moderately reduced. LV EF is 35%. Doppler measurements suggest pseudonormalized left ventricular relaxation, which is associated with grade II/IV or mild to moderate diastolic dysfunction. There is moderate global hypokinesis of the left ventricle. Right Ventricle The right ventricle is grossly normal size. There is normal right ventricular wall thickness. The right ventricular systolic function is normal. Atria The right atrium is normal in size. The left atrium is mildly dilated. Interarterial septum not well visualized and not well dopplered. Cannot comment on ASD/PFO presence. Mitral Valve The mitral valve leaflets are sclerotic, but show no functional abnormalities. There is no mitral valve stenosis. There is a moderate to severe amount of mitral regurgitation. Aortic Valve The aortic valve is grossly normal. There is no aortic valve stenosis. No aortic regurgitation is present. Tricuspid Valve The tricuspid valve is not well visualized, but is grossly normal. There is no tricuspid stenosis. There is a mild amount of tricuspid regurgitation. There is moderate pulmonary hypertension by echo. Right ventricular systolic pressure is estimated to be elevated at 50-60mmHg. Pulmonic Valve The pulmonic valve is not well visualized. Great Vessels The aortic root is not well visualized but is probably normal size. The inferior vena cava appeared normal and decreased < 50% with respiration (RAP 10-15 mmHg). Effusions There is no pericardial effusion. : LEO RANDHAWA > Ivan Oseguera
[2018-02-26] MEDS: AZITHROMYCIN 500 MG in NORMAL SALINE 250 ML IV SCH (09:55)
[2018-02-26] MEDS: ENOXAPARIN SODIUM INJ 40 MG/0.4 ML DISP.SYRIN SUBCUT SCH (10:03)
[2018-02-26] MEDS: PANTOPRAZOLE SODIUM 40 MG VIAL IV SCH (10:03)
[2018-02-26 11:47] LABS: HEMATOCRIT 36.6 % (37.9-51.0); HEMOGLOBIN 12.1 g/dL (13.5-17.0); MEAN CORPUSCULAR HEMOGLOBIN 29.4 pg (27.0-33.4); MEAN CORPUSCULAR HGB CONC 33.1 g/dL (32.0-36.0); MEAN CORPUSCULAR VOLUME 89 fl (80-97); PLATELET COUNT 250 10^3/uL (150-450); RED BLOOD COUNT 4.12 10^6/uL (4.35-5.55); RED CELL DISTRIBUTION WIDTH 13.9 % (11.5-14.0); WHITE BLOOD COUNT 9.1 10^3/uL (4.0-10.5)
[2018-02-26 11:52] LABS: INTERNATIONAL RATION (INR) 0.87; PROTHROMBIN TIME 12.3 SEC (11.4-15.4)
[2018-02-26 11:53] LABS: PARTIAL THROMBOPLASTIN TIME 37.3 SEC (23.5-35.8)
--- NOTE | 2018-02-26 14:36 | Progress Note ---
Provider Note Provider Note: ID Consult Note Asked by Pharmacy to review patient's chart. Mr. Hicks is a 57 yo man with pmh including systolic and diastolic CHF systolic and COPD. He was admitted on with acute on chronic respiratory failure. He was hypoxic and required intubation. His chest CT was read as showing possible early developing upper lobe infiltrates. Initial CXR was unremarkable for pulmonary process. Later plain films showed some mild patchy upper lobe opacities. Blood cultures are negative x 4 days. Respiratory culture grew 1+ Streptococcus pneumoniae. He has been treated empirically with Zosyn and azithromycin. Impression/Recommendations COPD exacerbation and community acquired pneumonia with Streptococcus pneumoniae - Zosyn can be de-escalated to Rocephin. Azithromycin can be continued. Although there have been some contradicting studies, a meta-analysis and systematic review have concluded that combination therapy with a beta-lactam and macrolide is associated with better clinical outcomes, possibly related to some immunomodulatory effects of macrolides. - Suggest completing 7 days as the total duration of therapy (another 2-3 days) Santiago Reynolds MD, [facility] Infectious Diseases pager [phone]
[2018-02-26] MEDS: THIAMINE HCL 100 MG, FOLIC ACID 1 MG in NORMAL SALINE 250 ML IV SCH (17:18)
--- NOTE | 2018-02-26 17:34 | PDOC PROGRESS REPORT ---
Subjective Progress Note for:: 02/26/18 Subjective:: 57-year-old male with past medical history of Hypertension COPD Alcohol withdrawal seizures more than 16 years ago Bipolar disorder Tobacco use He presented to the hospital on February 22 with shortness of breath and was noted to be hypoxic with sats of 70% on room air. He was diagnosed with acute respiratory failure given Rocephin and intubated in the emergency room. History could not be obtained due to patient's mental status. Continue sedation vacations and trial of wean he did not require pressor support. Reason For Visit: SEPSIS,ACUTE ON CHRONIC RESPIRATORY FAILURE Physical Exam Vital Signs: Temp Pulse Resp BP Pulse Ox 97.2 F 63 14 139/87 H 98 02/26/18 16:00 02/26/18 13:25 02/26/18 16:00 02/26/18 15:45 02/26/18 16:07 Intake & Output 02/25/18 02/26/18 02/27/18 06:59 06:59 06:59 Intake Total 4722 3037 1123 Output Total 1195 3810 2900 Balance 0472 -078 -0599 Weight 75.8 kg 75.4 kg General appearance: PRESENT: other - sedated on vent Head exam: PRESENT: normocephalic Eye exam: PRESENT: PERRLA. ABSENT: scleral icterus Ear exam: PRESENT: normal external ear exam Neck exam: ABSENT: tracheal deviation Respiratory exam: PRESENT: symmetrical, unlabored. ABSENT: wheezes Cardiovascular exam: PRESENT: RRR GI/Abdominal exam: PRESENT: normal bowel sounds, soft. ABSENT: tenderness Rectal exam: PRESENT: deferred Extremities exam: ABSENT: calf tenderness, pedal edema Neurological exam: PRESENT: other - sedated on vent Skin exam: ABSENT: petechiae Results Laboratory Results: 02/26/18 11:30 02/26/18 11:30 02/26/18 02/26/18 02/26/18 05:29 05:29 05:29 WBC 8.3 RBC 3.81 L Hgb 11.5 L Hct 34.1 L MCV 90 MCH 30.1 MCHC 33.7 RDW 13.9 Plt Count 224 Seg Neutrophils % Not Reportable Lymphocytes % Not Reportable Monocytes % Not Reportable Eosinophils % Not Reportable Basophils % Not Reportable Absolute Neutrophils Not Reportable Absolute Lymphocytes Not Reportable Absolute Monocytes Not Reportable Absolute Eosinophils Not Reportable Absolute Basophils Not Reportable Carbonic Acid 1.14 HCO3/H2CO3 Ratio 22:1 ABG pH 7.44 ABG pCO2 38.0 ABG pO2 147.3 H ABG HCO3 25.2 ABG O2 Saturation 99.0 H ABG Base Excess 1.2 FiO2 40% Sodium 143.4 Potassium 4.0 Chloride 111 H Carbon Dioxide 27 Anion Gap 5 BUN 25 H Creatinine 0.74 Est GFR ( Amer) > 60 Est GFR (Non-Af Amer) > 60 Glucose 114 H Calcium 8.2 L Magnesium 2.3 Total Bilirubin 0.2 AST 19 ALT 46 Alkaline Phosphatase 137 H Total Protein 4.5 L Albumin 2.5 L 02/26/18 02/26/18 11:30 11:30 WBC 9.1 RBC 4.12 L Hgb 12.1 L Hct 36.6 L MCV 89 MCH 29.4 MCHC 33.1 RDW 13.9 Plt Count 250 Seg Neutrophils % Lymphocytes % Monocytes % Eosinophils % Basophils % Absolute Neutrophils Absolute Lymphocytes Absolute Monocytes Absolute Eosinophils Absolute Basophils Carbonic Acid HCO3/H2CO3 Ratio ABG pH ABG pCO2 ABG pO2 ABG HCO3 ABG O2 Saturation ABG Base Excess FiO2 Sodium Potassium Chloride Carbon Dioxide Anion Gap BUN Creatinine 0.70 Est GFR ( Amer) > 60 Est GFR (Non-Af Amer) > 60 Glucose Calcium Magnesium Total Bilirubin AST ALT Alkaline Phosphatase Total Protein Albumin Impressions: Chest/Abdomen CTA 02/22/18 08:04 IMPRESSION: No gross CT angio evidence of acute pulmonary emboli Motion artifact on the study. Question early or developing infiltrates in the bilateral upper lobes. KUB X-Ray 02/22/18 12:57 IMPRESSION: Nasogastric tube tip and side port in the stomach. Interstitial pulmonary edema at the lung base Chest X-Ray 02/26/18 06:00 IMPRESSION: 1. Improved aeration of the right upper lung. Persistent left basilar opacities and small left pleural effusion. Assessment & Plan - Diagnosis (1) Acute hypoxemic respiratory failure Is this a current diagnosis for this admission?: Yes Plan: Day 5 of antibiotics, Zosyn switched to Rocephin. Continue Azithromycin. ID input appreciated. Continue sedation vacations and trial of wean (2) COPD exacerbation Is this a current diagnosis for this admission?: Yes Plan: Taper IV steroids and continue nebulizers (3) Pneumonia of both upper lobes Qualifiers: Pneumonia type: due to unspecified organism Qualified Code(s): J18.1 - Lobar pneumonia, unspecified organism Is this a current diagnosis for this admission?: Yes Plan: As above (4) Bipolar 1 disorder Is this a current diagnosis for this admission?: Yes Plan: Outpatient medications (5) Nicotine dependence Is this a current diagnosis for this admission?: Yes Plan: No plans for now. Sedated on vent (6) Hypomagnesemia Is this a current diagnosis for this admission?: Yes Plan: Repleted (7) DVT prophylaxis Is this a current diagnosis for this admission?: Yes Plan: Heparin subcutaneous (8) At risk for stress ulcer Is this a current diagnosis for this admission?: Yes Plan: PPI. (9) On tube feeding diet Is this a current diagnosis for this admission?: Yes - Time Time Spent with patient: 35 or more minutes
[2018-02-26] MEDS ORDERED: CEFTRIAXONE 1 GM/D5W RTU 1 GM/50 ML RTUPB IV SCH (18:00)
[2018-02-26] MEDS: OLANZAPINE 5 MG TABLET PO SCH (21:00)
[2018-02-26] MEDS ORDERED: PIPERACILLIN SODIUM/TAZOBACTAM 3.375 GM in NORMAL SALINE 100 ML IV SCH (21:00)
[2018-02-26] MEDS: CEFTRIAXONE SODIUM 1,000 MG in NORMAL SALINE 100 ML IV SCH (21:57)
[2018-02-27] MEDS: MIDAZOLAM HCL 50 MG/100 ML RTUINJ IV PRN (00:31)
[2018-02-27] MEDS: PROPOFOL 100 ML IV PRN ×2 (03:35→06:16)
[2018-02-27] MEDS: METHYLPREDNISOLONE INJ 40 MG/1 ML SDV IV SCH ×3 (05:07→21:21)
[2018-02-27] MEDS: GABAPENTIN 300 MG CAPSULE PO SCH ×3 (05:08→21:18)
[2018-02-27 05:29] LABS: ABSOLUTE BASOPHILS # (AUTO) 0.1 10^3/uL (0.0-0.2); ABSOLUTE LYMPHOCYTES (AUTO) 1.5 10^3/uL (0.5-4.7); ABSOLUTE MONOCYTES (AUTO) 0.6 10^3/uL (0.1-1.4); ABSOLUTE NEUT (AUTO) 6.7 10^3/uL (1.7-8.2); ARTERIAL BLOOD BASE EXCESS 4.3 mmol/L; ARTERIAL BLOOD H2CO3 1.11 mmol/L (1.05-1.35); ARTERIAL BLOOD HCO3 27.6 mmol/L (20-26); ARTERIAL BLOOD O2 SATURATION 96.8 % (94-98); ARTERIAL BLOOD PCO2 36.9 mmHg (35-45); ARTERIAL BLOOD PH 7.49 (7.35-7.45); ARTERIAL BLOOD PO2 81.4 mmHg (80-100); ARTERIAL BLOOD TOTAL CO2 28.7 mmol/L (23-27); BASOPHILS % (AUTO) 0.6 % (0-2); EOSINOPHILS % (AUTO) 0.2 % (0-6); HEMATOCRIT 36.6 % (37.9-51.0); HEMOGLOBIN 12.4 g/dL (13.5-17.0); LYMPHOCYTES % (AUTO) 17.3 % (13-45); MEAN CORPUSCULAR HEMOGLOBIN 30.2 pg (27.0-33.4); MEAN CORPUSCULAR HGB CONC 33.9 g/dL (32.0-36.0); MEAN CORPUSCULAR VOLUME 89 fl (80-97); MONOCYTES % (AUTO) 6.5 % (3-13); PLATELET COUNT 250 10^3/uL (150-450); RED BLOOD COUNT 4.11 10^6/uL (4.35-5.55); RED CELL DISTRIBUTION WIDTH 14.1 % (11.5-14.0); SEGMENTED NEUTROPHILS % (AUTO) 75.4 % (42-78); TOTAL CELLS COUNTED % (AUTO) 100 %; WHITE BLOOD COUNT 8.8 10^3/uL (4.0-10.5)
[2018-02-27 05:30] LABS: ARTERIAL BLOOD FIO2 25%
[2018-02-27 05:45] LABS: ALANINE AMINOTRANSFERASE 44 U/L (21-72); ALBUMIN 2.7 g/dL (3.5-5.0); ALKALINE PHOSPHATASE 131 U/L (38-126); ANION GAP 6 (5-19); ASPARTATE AMINO TRANSFERASE 23 U/L (17-59); BILIRUBIN,DIRECT 0.1 mg/dL (0.0-0.4); BILIRUBIN,TOTAL 0.1 mg/dL (0.2-1.3); BLOOD UREA NITROGEN 23 mg/dL (7-20); CALCIUM 8.5 mg/dL (8.4-10.2); CARBON DIOXIDE 30 mmol/L (22-30); CHLORIDE 108 mmol/L (98-107); GLUCOSE 107 mg/dL (75-110); POTASSIUM 4.1 mmol/L (3.6-5.0); SODIUM 144.2 mmol/L (137-145)
--- NOTE | 2018-02-27 07:21 | RADIOLOGY REPORT (SQ) ---
EXAM DESCRIPTION: CHEST SINGLE VIEW CLINICAL HISTORY: pna resp fail COMPARISON: 02/26/2018 FINDINGS: Single frontal view of the chest. Endotracheal tube, NG tube, and right IJ central venous catheter are unchanged. Small left pleural effusion and left basilar opacities. Heart is not enlarged. No pneumothorax. Improved aeration of the right upper lung. No acute osseous abnormalities. Upper abdominal soft tissues are unremarkable. IMPRESSION: 1. Improved aeration of the right upper lung. Persistent left basilar opacities and small left pleural effusion. Electronically signed by: Rajinder Morrow 02/27/2018 6:19 AM
[2018-02-27] MEDS: IPRATROPIUM/ALBUTEROL 0.5-2.5 MG/3 ML AMPUL NEB SCH ×3 (08:25→20:08)
[2018-02-27] MEDS ORDERED: DEXAMETHASONE SOD PHOSPHATE INJ 4 MG/1 ML VIAL ONE (09:46)
[2018-02-27] MEDS: PANTOPRAZOLE SODIUM 40 MG VIAL IV SCH (09:52)
[2018-02-27] MEDS: ENOXAPARIN SODIUM INJ 40 MG/0.4 ML DISP.SYRIN SUBCUT SCH (09:53)
[2018-02-27] MEDS: AZITHROMYCIN 500 MG in NORMAL SALINE 250 ML IV SCH (09:53)
[2018-02-27] MEDS ORDERED: DEXAMETHASONE SOD PHOSPHATE INJ 4 MG/1 ML VIAL IV ONE (10:30)
--- NOTE | 2018-02-27 11:51 | PDOC PROGRESS REPORT ---
Subjective Progress Note for:: 02/27/18 Subjective:: 57-year-old male with past medical history of Hypertension COPD Alcohol withdrawal seizures more than 16 years ago Bipolar disorder Tobacco use He presented to the hospital on February 22 with shortness of breath and was noted to be hypoxic with sats of 70% on room air. He was diagnosed with acute respiratory failure given Rocephin and intubated in the emergency room. History could not be obtained due to patient's mental status. Plan to extubate today Reason For Visit: SEPSIS,ACUTE ON CHRONIC RESPIRATORY FAILURE Physical Exam Vital Signs: Temp Pulse Resp BP Pulse Ox 98.6 F 84 26 H 142/82 H 100 02/27/18 10:46 02/27/18 10:00 02/27/18 10:46 02/27/18 10:46 02/27/18 10:46 Intake & Output 02/26/18 02/27/18 02/28/18 06:59 06:59 06:59 Intake Total 3037 2814 186 Output Total 3810 6900 1880 Balance -773 -6175 -0734 Weight 75.4 kg 70.3 kg General appearance: PRESENT: no acute distress Head exam: PRESENT: normocephalic Eye exam: ABSENT: scleral icterus Ear exam: PRESENT: normal external ear exam Neck exam: PRESENT: other - Intubated Respiratory exam: PRESENT: clear to auscultation nyasia, symmetrical Cardiovascular exam: PRESENT: RRR GI/Abdominal exam: PRESENT: normal bowel sounds, soft. ABSENT: tenderness Rectal exam: PRESENT: deferred, other - rectal tube present Extremities exam: ABSENT: calf tenderness, pedal edema Neurological exam: PRESENT: other - On vent Results Laboratory Results: 02/27/18 05:19 02/27/18 05:19 02/26/18 02/26/18 02/27/18 11:30 11:30 05:19 WBC 9.1 RBC 4.12 L Hgb 12.1 L Hct 36.6 L MCV 89 MCH 29.4 MCHC 33.1 RDW 13.9 Plt Count 250 Seg Neutrophils % Lymphocytes % Monocytes % Eosinophils % Basophils % Absolute Neutrophils Absolute Lymphocytes Absolute Monocytes Absolute Eosinophils Absolute Basophils Carbonic Acid 1.11 HCO3/H2CO3 Ratio 24:1 ABG pH 7.49 H ABG pCO2 36.9 ABG pO2 81.4 ABG HCO3 27.6 H ABG O2 Saturation 96.8 ABG Base Excess 4.3 FiO2 25% Sodium Potassium Chloride Carbon Dioxide Anion Gap BUN Creatinine 0.70 Est GFR ( Amer) > 60 Est GFR (Non-Af Amer) > 60 Glucose Calcium Magnesium Total Bilirubin AST ALT Alkaline Phosphatase Total Protein Albumin 02/27/18 02/27/18 05:19 05:19 WBC 8.8 RBC 4.11 L Hgb 12.4 L Hct 36.6 L MCV 89 MCH 30.2 MCHC 33.9 RDW 14.1 H Plt Count 250 Seg Neutrophils % 75.4 Lymphocytes % 17.3 Monocytes % 6.5 Eosinophils % 0.2 Basophils % 0.6 Absolute Neutrophils 6.7 Absolute Lymphocytes 1.5 Absolute Monocytes 0.6 Absolute Eosinophils 0.0 Absolute Basophils 0.1 Carbonic Acid HCO3/H2CO3 Ratio ABG pH ABG pCO2 ABG pO2 ABG HCO3 ABG O2 Saturation ABG Base Excess FiO2 Sodium 144.2 Potassium 4.1 Chloride 108 H Carbon Dioxide 30 Anion Gap 6 BUN 23 H Creatinine 0.73 Est GFR ( Amer) > 60 Est GFR (Non-Af Amer) > 60 Glucose 107 Calcium 8.5 Magnesium 2.2 Total Bilirubin 0.1 L AST 23 ALT 44 Alkaline Phosphatase 131 H Total Protein 5.0 L Albumin 2.7 L 02/22/18 15:30 Tracheal Aspirate Gram Stain - Final Impressions: Chest/Abdomen CTA 02/22/18 08:04 IMPRESSION: No gross CT angio evidence of acute pulmonary emboli Motion artifact on the study. Question early or developing infiltrates in the bilateral upper lobes. KUB X-Ray 02/22/18 12:57 IMPRESSION: Nasogastric tube tip and side port in the stomach. Interstitial pulmonary edema at the lung base Chest X-Ray 02/27/18 06:00 IMPRESSION: 1. Improved aeration of the right upper lung. Persistent left basilar opacities and small left pleural effusion. Assessment & Plan - Diagnosis (1) Acute hypoxemic respiratory failure Is this a current diagnosis for this admission?: Yes Plan: Day 6 of antibiotics- Rocephin and Azithromycin. ID input appreciated. (2) COPD exacerbation Is this a current diagnosis for this admission?: Yes Plan: Taper IV steroids and continue nebulizers (3) Pneumonia of both upper lobes Qualifiers: Pneumonia type: due to unspecified organism Qualified Code(s): J18.1 - Lobar pneumonia, unspecified organism Is this a current diagnosis for this admission?: Yes Plan: As above (4) Bipolar 1 disorder Is this a current diagnosis for this admission?: Yes Plan: Outpatient medications (5) Nicotine dependence Is this a current diagnosis for this admission?: Yes Plan: Nicotine patch (6) Hypomagnesemia Is this a current diagnosis for this admission?: Yes Plan: Repleted (7) DVT prophylaxis Is this a current diagnosis for this admission?: Yes Plan: Lovenox subcutaneous (8) At risk for stress ulcer Is this a current diagnosis for this admission?: Yes Plan: PPI. (9) On tube feeding diet Is this a current diagnosis for this admission?: Yes - Time Time Spent with patient: 35 or more minutes
--- NOTE | 2018-02-27 12:50 | PDOC PROGRESS REPORT ---
Subjective Progress Note for:: 02/26/18 Subjective:: Intubated and sedated Reason For Visit: SEPSIS,ACUTE ON CHRONIC RESPIRATORY FAILURE Physical Exam Vital Signs: Temp Pulse Resp BP Pulse Ox 96.8 F L 78 20 140/83 H 100 02/26/18 06:00 02/25/18 19:41 02/26/18 06:00 02/26/18 05:47 02/26/18 06:00 Intake & Output 02/25/18 02/26/18 02/27/18 06:59 06:59 06:59 Intake Total 4722 3037 Output Total 1195 8070 Balance 6674 -167 Weight 75.8 kg 75.4 kg General appearance: PRESENT: no acute distress, disheveled, thin, well-developed , well-nourished. ABSENT: cooperative Head exam: PRESENT: atraumatic, normocephalic Eye exam: PRESENT: conjunctiva pale. ABSENT: EOMI, nystagmus, periorbital swelling, scleral icterus Mouth exam: PRESENT: dry mucosa, neck supple, tongue midline, other - ET tube in place Neck exam: ABSENT: carotid bruit, JVD, lymphadenopathy, thyromegaly, tracheal deviation, tracheostomy Respiratory exam: PRESENT: decreased breath sounds, prolonged expiratory phas, rales, rhonchi, symmetrical, unlabored. ABSENT: retraction, stridor, tachypnea Cardiovascular exam: PRESENT: RRR, +S1, +S2, tachycardia Pulses: PRESENT: normal radial pulses GI/Abdominal exam: PRESENT: diminished bowel sounds, soft Extremities exam: ABSENT: clubbing, full ROM, joint swelling Musculoskeletal exam: ABSENT: ambulatory, deformity, dislocation, full ROM Neurological exam: ABSENT: awake, oriented to person Skin exam: PRESENT: dry, warm Results Laboratory Results: 02/26/18 05:29 02/26/18 05:29 02/25/18 02/26/18 02/26/18 16:30 05:29 05:29 WBC 8.3 RBC 3.81 L Hgb 11.5 L Hct 34.1 L MCV 90 MCH 30.1 MCHC 33.7 RDW 13.9 Plt Count 224 Seg Neutrophils % Not Reportable Lymphocytes % Not Reportable Monocytes % Not Reportable Eosinophils % Not Reportable Basophils % Not Reportable Absolute Neutrophils Not Reportable Absolute Lymphocytes Not Reportable Absolute Monocytes Not Reportable Absolute Eosinophils Not Reportable Absolute Basophils Not Reportable Carbonic Acid 0.94 L 1.14 HCO3/H2CO3 Ratio 24:1 22:1 ABG pH 7.48 H 7.44 ABG pCO2 31.3 L 38.0 ABG pO2 123.1 H 147.3 H ABG HCO3 22.7 25.2 ABG O2 Saturation 98.7 H 99.0 H ABG Base Excess 0 1.2 FiO2 40% 40% Sodium Potassium Chloride Carbon Dioxide Anion Gap BUN Creatinine Est GFR ( Amer) Est GFR (Non-Af Amer) Glucose Calcium Magnesium Total Bilirubin AST ALT Alkaline Phosphatase Total Protein Albumin 02/26/18 05:29 WBC RBC Hgb Hct MCV MCH MCHC RDW Plt Count Seg Neutrophils % Lymphocytes % Monocytes % Eosinophils % Basophils % Absolute Neutrophils Absolute Lymphocytes Absolute Monocytes Absolute Eosinophils Absolute Basophils Carbonic Acid HCO3/H2CO3 Ratio ABG pH ABG pCO2 ABG pO2 ABG HCO3 ABG O2 Saturation ABG Base Excess FiO2 Sodium 143.4 Potassium 4.0 Chloride 111 H Carbon Dioxide 27 Anion Gap 5 BUN 25 H Creatinine 0.74 Est GFR ( Amer) > 60 Est GFR (Non-Af Amer) > 60 Glucose 114 H Calcium 8.2 L Magnesium 2.3 Total Bilirubin 0.2 AST 19 ALT 46 Alkaline Phosphatase 137 H Total Protein 4.5 L Albumin 2.5 L Impressions: Chest/Abdomen CTA 02/22/18 08:04 IMPRESSION: No gross CT angio evidence of acute pulmonary emboli Motion artifact on the study. Question early or developing infiltrates in the bilateral upper lobes. KUB X-Ray 02/22/18 12:57 IMPRESSION: Nasogastric tube tip and side port in the stomach. Interstitial pulmonary edema at the lung base Chest X-Ray 02/26/18 06:00 IMPRESSION: 1. Improved aeration of the right upper lung. Persistent left basilar opacities and small left pleural effusion. Assessment & Plan - Diagnosis (1) Acute and chronic respiratory failure Is this a current diagnosis for this admission?: Yes Plan: Minute ventilation remains elevated otherwise improving (2) COPD exacerbation Is this a current diagnosis for this admission?: Yes Plan: unchanged (3) Pneumonia of both upper lobes Qualifiers: Pneumonia type: due to unspecified organism Qualified Code(s): J18.1 - Lobar pneumonia, unspecified organism Is this a current diagnosis for this admission?: Yes (4) Sepsis Qualifiers: Sepsis type: sepsis due to unspecified organism Qualified Code(s): A41.9 - Sepsis, unspecified organism Is this a current diagnosis for this admission?: Yes - Time Total Critical Time (Minutes): 40
--- NOTE | 2018-02-27 12:54 | PDOC PROGRESS REPORT ---
Subjective Progress Note for:: 02/27/18 Subjective:: Intubated and sedated,But arousable Reason For Visit: SEPSIS,ACUTE ON CHRONIC RESPIRATORY FAILURE Physical Exam Vital Signs: Temp Pulse Resp BP Pulse Ox 97.9 F 71 20 134/80 H 95 02/27/18 07:45 02/27/18 07:45 02/27/18 07:45 02/27/18 07:45 02/27/18 07:45 Intake & Output 02/26/18 02/27/18 02/28/18 06:59 06:59 06:59 Intake Total 3037 2814 186 Output Total 3810 6900 680 Balance -773 -4086 -494 Weight 75.4 kg 70.3 kg General appearance: PRESENT: no acute distress, cooperative, disheveled, thin, well-developed, well-nourished Head exam: PRESENT: atraumatic, normocephalic Eye exam: PRESENT: conjunctiva pale, EOMI. ABSENT: nystagmus, periorbital swelling, scleral icterus Mouth exam: PRESENT: dry mucosa, neck supple, tongue midline, other - ET tube in place Neck exam: ABSENT: carotid bruit, JVD, lymphadenopathy, thyromegaly, tracheal deviation, tracheostomy Respiratory exam: PRESENT: decreased breath sounds, prolonged expiratory phas, rhonchi, symmetrical, unlabored, wheezes. ABSENT: rales, retraction, stridor, tachypnea Cardiovascular exam: PRESENT: RRR, +S1, +S2. ABSENT: tachycardia Pulses: PRESENT: normal radial pulses GI/Abdominal exam: PRESENT: diminished bowel sounds, soft Extremities exam: ABSENT: clubbing, full ROM, joint swelling Musculoskeletal exam: ABSENT: ambulatory, deformity, dislocation, full ROM Neurological exam: PRESENT: awake, oriented to person Skin exam: PRESENT: dry, warm Results Laboratory Results: 02/27/18 05:19 02/27/18 05:19 02/26/18 02/26/18 02/27/18 11:30 11:30 05:19 WBC 9.1 RBC 4.12 L Hgb 12.1 L Hct 36.6 L MCV 89 MCH 29.4 MCHC 33.1 RDW 13.9 Plt Count 250 Seg Neutrophils % Lymphocytes % Monocytes % Eosinophils % Basophils % Absolute Neutrophils Absolute Lymphocytes Absolute Monocytes Absolute Eosinophils Absolute Basophils Carbonic Acid 1.11 HCO3/H2CO3 Ratio 24:1 ABG pH 7.49 H ABG pCO2 36.9 ABG pO2 81.4 ABG HCO3 27.6 H ABG O2 Saturation 96.8 ABG Base Excess 4.3 FiO2 25% Sodium Potassium Chloride Carbon Dioxide Anion Gap BUN Creatinine 0.70 Est GFR ( Amer) > 60 Est GFR (Non-Af Amer) > 60 Glucose Calcium Magnesium Total Bilirubin AST ALT Alkaline Phosphatase Total Protein Albumin 02/27/18 02/27/18 05:19 05:19 WBC 8.8 RBC 4.11 L Hgb 12.4 L Hct 36.6 L MCV 89 MCH 30.2 MCHC 33.9 RDW 14.1 H Plt Count 250 Seg Neutrophils % 75.4 Lymphocytes % 17.3 Monocytes % 6.5 Eosinophils % 0.2 Basophils % 0.6 Absolute Neutrophils 6.7 Absolute Lymphocytes 1.5 Absolute Monocytes 0.6 Absolute Eosinophils 0.0 Absolute Basophils 0.1 Carbonic Acid HCO3/H2CO3 Ratio ABG pH ABG pCO2 ABG pO2 ABG HCO3 ABG O2 Saturation ABG Base Excess FiO2 Sodium 144.2 Potassium 4.1 Chloride 108 H Carbon Dioxide 30 Anion Gap 6 BUN 23 H Creatinine 0.73 Est GFR ( Amer) > 60 Est GFR (Non-Af Amer) > 60 Glucose 107 Calcium 8.5 Magnesium 2.2 Total Bilirubin 0.1 L AST 23 ALT 44 Alkaline Phosphatase 131 H Total Protein 5.0 L Albumin 2.7 L Impressions: Chest/Abdomen CTA 02/22/18 08:04 IMPRESSION: No gross CT angio evidence of acute pulmonary emboli Motion artifact on the study. Question early or developing infiltrates in the bilateral upper lobes. KUB X-Ray 02/22/18 12:57 IMPRESSION: Nasogastric tube tip and side port in the stomach. Interstitial pulmonary edema at the lung base Chest X-Ray 02/27/18 06:00 IMPRESSION: 1. Improved aeration of the right upper lung. Persistent left basilar opacities and small left pleural effusion. Assessment & Plan - Diagnosis (1) Acute and chronic respiratory failure Is this a current diagnosis for this admission?: Yes Plan: Respiratory rate, minute ventilation, FiO2, airway pressures suggest successful extubation will proceed with extubation (2) COPD exacerbation Is this a current diagnosis for this admission?: Yes Plan: unchanged (3) Pneumonia of both upper lobes Qualifiers: Pneumonia type: due to unspecified organism Qualified Code(s): J18.1 - Lobar pneumonia, unspecified organism Is this a current diagnosis for this admission?: Yes Plan: WBC normal minimal shift; a ABG within normal limits, negative cultures thus far (4) Sepsis Qualifiers: Sepsis type: sepsis due to unspecified organism Qualified Code(s): A41.9 - Sepsis, unspecified organism Is this a current diagnosis for this admission?: Yes - Time Total Critical Time (Minutes): 55
[2018-02-27] MEDS: OXYCODONE-ACETAMINOPHEN 5-325 MG TABLET PO PRN ×3 (13:53→22:43)
[2018-02-27] MEDS: NICOTINE 14 MG/24 HR PATCH.TD24 TD PRN (13:54)
[2018-02-27] MEDS: THIAMINE HCL 100 MG, FOLIC ACID 1 MG in NORMAL SALINE 250 ML IV SCH (17:16)
[2018-02-27] MEDS: ACETYLCYSTEINE 20% SOLN 800 MG/4 ML VIAL.NEB NEB SCH (20:08)
[2018-02-27] MEDS: OLANZAPINE 5 MG TABLET PO SCH (21:17)
[2018-02-27] MEDS: CEFTRIAXONE SODIUM 1,000 MG in NORMAL SALINE 100 ML IV SCH (21:18)
--- NOTE | 2018-02-27 22:35 | EKG REPORT ---
SEVERITY:- ABNORMAL ECG - SINUS RHYTHM LEFT VENTRICULAR HYPERTROPHY : Confirmed by: Ivan Oseguera 27-Feb-2018 22:34:13
[2018-02-28] MEDS: OXYCODONE-ACETAMINOPHEN 5-325 MG TABLET PO PRN ×4 (02:38→19:09)
[2018-02-28 05:39] LABS: ARTERIAL BLOOD BASE EXCESS 6.4 mmol/L; ARTERIAL BLOOD H2CO3 1.28 mmol/L (1.05-1.35); ARTERIAL BLOOD HCO3 30.7 mmol/L (20-26); ARTERIAL BLOOD PCO2 42.4 mmHg (35-45); ARTERIAL BLOOD PH 7.48 (7.35-7.45); ARTERIAL BLOOD PO2 102.6 mmHg (80-100)
[2018-02-28] MEDS: GABAPENTIN 300 MG CAPSULE PO SCH ×3 (05:39→21:31)
[2018-02-28 05:40] LABS: ABSOLUTE LYMPHOCYTES (AUTO) 1.6 10^3/uL (0.5-4.7); ABSOLUTE MONOCYTES (AUTO) 0.5 10^3/uL (0.1-1.4); ABSOLUTE NEUT (AUTO) 7.1 10^3/uL (1.7-8.2); ARTERIAL BLOOD FIO2 2L; BASOPHILS % (AUTO) 0.5 % (0-2); EOSINOPHILS % (AUTO) 0.1 % (0-6); HEMATOCRIT 37.4 % (37.9-51.0); HEMOGLOBIN 12.4 g/dL (13.5-17.0); LYMPHOCYTES % (AUTO) 17.5 % (13-45); MEAN CORPUSCULAR HEMOGLOBIN 29.6 pg (27.0-33.4); MEAN CORPUSCULAR HGB CONC 33.2 g/dL (32.0-36.0); MEAN CORPUSCULAR VOLUME 89 fl (80-97); MONOCYTES % (AUTO) 5.7 % (3-13); PLATELET COUNT 245 10^3/uL (150-450); RED BLOOD COUNT 4.19 10^6/uL (4.35-5.55); RED CELL DISTRIBUTION WIDTH 13.9 % (11.5-14.0); SEGMENTED NEUTROPHILS % (AUTO) 76.2 % (42-78); TOTAL CELLS COUNTED % (AUTO) 100 %; WHITE BLOOD COUNT 9.4 10^3/uL (4.0-10.5)
[2018-02-28] MEDS: METHYLPREDNISOLONE INJ 40 MG/1 ML SDV IV SCH (05:40)
[2018-02-28 05:56] LABS: ANION GAP 8 (5-19); BLOOD UREA NITROGEN 22 mg/dL (7-20); CALCIUM 8.9 mg/dL (8.4-10.2); CARBON DIOXIDE 34 mmol/L (22-30); CHLORIDE 104 mmol/L (98-107); GLUCOSE 101 mg/dL (75-110); POTASSIUM 4.1 mmol/L (3.6-5.0); SODIUM 145.6 mmol/L (137-145)
--- NOTE | 2018-02-28 06:34 | RADIOLOGY REPORT (SQ) ---
EXAM DESCRIPTION: CHEST SINGLE VIEW CLINICAL HISTORY: Pt post extubation COMPARISON: 02/27/2018 FINDINGS: Single frontal view of the chest. Interval removal of endotracheal tube and NG tube. Right IJ central venous catheter is unchanged. Small left pleural effusion and left basilar opacities. Heart is not enlarged. No pneumothorax. No acute osseous abnormalities. Upper abdominal soft tissues are unremarkable. IMPRESSION: 1. Interval removal of endotracheal tube and NG tube. Otherwise stable appearance of the chest. Electronically signed by: Rajinder Morrow 02/28/2018 5:33 AM CDT
[2018-02-28] MEDS: IPRATROPIUM/ALBUTEROL 0.5-2.5 MG/3 ML AMPUL NEB SCH ×3 (08:41→21:02)
[2018-02-28] MEDS: ACETYLCYSTEINE 20% SOLN 800 MG/4 ML VIAL.NEB NEB SCH ×2 (08:41→21:01)
[2018-02-28] MEDS: AZITHROMYCIN 500 MG in DEXTROSE 5%-WATER 250 ML IV SCH (10:09)
[2018-02-28] MEDS: PANTOPRAZOLE SODIUM 40 MG VIAL IV SCH (10:09)
[2018-02-28] MEDS: ENOXAPARIN SODIUM INJ 40 MG/0.4 ML DISP.SYRIN SUBCUT SCH (10:10)
--- NOTE | 2018-02-28 11:33 | PDOC PROGRESS REPORT ---
Subjective Progress Note for:: 02/28/18 Subjective:: 57-year-old male with past medical history of Hypertension COPD Alcohol withdrawal seizures more than 16 years ago Bipolar disorder Tobacco use He presented to the hospital on February 22 with shortness of breath and was noted to be hypoxic with sats of 70% on room air. He was diagnosed with acute respiratory failure given Rocephin and intubated in the emergency room. History could not be obtained due to patient's mental status. He was extubated on 02/27/18. Ok to transfer to [facility]. Speech therapy evaluation to rule out risk of aspiration. PT eval. Complete antibiotics for pneumonia Reason For Visit: SEPSIS,ACUTE ON CHRONIC RESPIRATORY FAILURE Physical Exam Vital Signs: Temp Pulse Resp BP Pulse Ox 98.2 F 96 16 136/67 H 99 02/28/18 10:00 02/28/18 10:00 02/28/18 10:00 02/28/18 10:00 02/28/18 10:00 Intake & Output 02/27/18 02/28/18 03/01/18 06:59 06:59 06:59 Intake Total 2814 1612 600 Output Total [address] [place], [place] [id number] [phone] Weight 70.3 kg 64.5 kg Results Laboratory Results: 02/28/18 05:20 02/28/18 05:20 02/28/18 02/28/18 02/28/18 05:20 05:20 05:20 WBC 9.4 RBC 4.19 L Hgb 12.4 L Hct 37.4 L MCV 89 MCH 29.6 MCHC 33.2 RDW 13.9 Plt Count 245 Seg Neutrophils % 76.2 Lymphocytes % 17.5 Monocytes % 5.7 Eosinophils % 0.1 Basophils % 0.5 Absolute Neutrophils 7.1 Absolute Lymphocytes 1.6 Absolute Monocytes 0.5 Absolute Eosinophils 0.0 Absolute Basophils 0.0 Carbonic Acid 1.28 HCO3/H2CO3 Ratio 23:1 ABG pH 7.48 H ABG pCO2 42.4 ABG pO2 102.6 H ABG HCO3 30.7 H ABG O2 Saturation 98.0 ABG Base Excess 6.4 FiO2 2L Sodium 145.6 H Potassium 4.1 Chloride 104 Carbon Dioxide 34 H Anion Gap 8 BUN 22 H Creatinine 0.60 Est GFR ( Amer) > 60 Est GFR (Non-Af Amer) > 60 Glucose 101 Calcium 8.9 Magnesium 2.1 02/22/18 15:30 Tracheal Aspirate Gram Stain - Final 02/22/18 15:30 Tracheal Aspirate Sputum Culture - Final Streptococcus Pneumoniae Haemophilus Influenzae Greatly Reduced Normal Felicity Impressions: Chest/Abdomen CTA 02/22/18 08:04 IMPRESSION: No gross CT angio evidence of acute pulmonary emboli Motion artifact on the study. Question early or developing infiltrates in the bilateral upper lobes. KUB X-Ray 02/22/18 12:57 IMPRESSION: Nasogastric tube tip and side port in the stomach. Interstitial pulmonary edema at the lung base Chest X-Ray 02/28/18 06:00 IMPRESSION: 1. Interval removal of endotracheal tube and NG tube. Otherwise stable appearance of the chest. Assessment & Plan - Diagnosis (1) Acute hypoxemic respiratory failure Is this a current diagnosis for this admission?: Yes Plan: Day 7 of antibiotics- Rocephin and Azithromycin. ID input appreciated. (2) COPD exacerbation Is this a current diagnosis for this admission?: Yes Plan: Awitch to PO steroids and continue nebulizers (3) Pneumonia of both upper lobes Qualifiers: Pneumonia type: due to unspecified organism Qualified Code(s): J18.1 - Lobar pneumonia, unspecified organism Is this a current diagnosis for this admission?: Yes Plan: As above (4) Bipolar 1 disorder Is this a current diagnosis for this admission?: Yes Plan: Continue outpatient medications (5) Nicotine dependence Is this a current diagnosis for this admission?: Yes Plan: Nicotine patch (6) Hypomagnesemia Is this a current diagnosis for this admission?: Yes Plan: Repleted (7) DVT prophylaxis Is this a current diagnosis for this admission?: Yes Plan: Lovenox subcutaneous (8) At risk for stress ulcer Is this a current diagnosis for this admission?: Yes Plan: PPI. (9) On tube feeding diet Is this a current diagnosis for this admission?: Yes Plan: Discontinued. - Time Time Spent with patient: 35 or more minutes
[2018-02-28] MEDS: PREDNISONE 20 MG TABLET PO SCH (13:19)
[2018-02-28] MEDS: THIAMINE HCL 100 MG, FOLIC ACID 1 MG in NORMAL SALINE 250 ML IV SCH (19:10)
[2018-02-28] MEDS: OLANZAPINE 5 MG TABLET PO SCH (21:32)
--- NOTE | 2018-02-28 21:51 | PDOC PROGRESS REPORT ---
Subjective Progress Note for:: 02/28/18 Subjective:: Intubated and sedated,But arousable Reason For Visit: SEPSIS,ACUTE ON CHRONIC RESPIRATORY FAILURE Physical Exam Vital Signs: Temp Pulse Resp BP Pulse Ox 98.2 F 96 16 136/67 H 99 02/28/18 10:00 02/28/18 10:00 02/28/18 10:00 02/28/18 10:00 02/28/18 10:00 Intake & Output 02/27/18 02/28/18 03/01/18 06:59 06:59 06:59 Intake Total 2814 1612 Output Total 6900 7605 375 Balance -4086 -5993 -375 Weight 70.3 kg 64.5 kg General appearance: PRESENT: no acute distress, cooperative, disheveled Head exam: PRESENT: atraumatic, normocephalic Eye exam: PRESENT: conjunctiva pale, EOMI. ABSENT: nystagmus, periorbital swelling, scleral icterus Mouth exam: PRESENT: dry mucosa, neck supple, tongue midline Neck exam: ABSENT: carotid bruit, JVD, lymphadenopathy, thyromegaly, tracheal deviation, tracheostomy Respiratory exam: PRESENT: decreased breath sounds, prolonged expiratory phas, rales, rhonchi, symmetrical, unlabored, wheezes. ABSENT: tachypnea Cardiovascular exam: PRESENT: RRR, +S1, +S2 Pulses: PRESENT: normal radial pulses GI/Abdominal exam: PRESENT: diminished bowel sounds, soft Extremities exam: ABSENT: calf tenderness, clubbing, joint swelling Musculoskeletal exam: PRESENT: dislocation. ABSENT: deformity Neurological exam: PRESENT: alert, awake Psychiatric exam: PRESENT: normal mood Skin exam: PRESENT: dry, warm Results Laboratory Results: 02/28/18 05:20 02/28/18 05:20 02/28/18 02/28/18 02/28/18 05:20 05:20 05:20 WBC 9.4 RBC 4.19 L Hgb 12.4 L Hct 37.4 L MCV 89 MCH 29.6 MCHC 33.2 RDW 13.9 Plt Count 245 Seg Neutrophils % 76.2 Lymphocytes % 17.5 Monocytes % 5.7 Eosinophils % 0.1 Basophils % 0.5 Absolute Neutrophils 7.1 Absolute Lymphocytes 1.6 Absolute Monocytes 0.5 Absolute Eosinophils 0.0 Absolute Basophils 0.0 Carbonic Acid 1.28 HCO3/H2CO3 Ratio 23:1 ABG pH 7.48 H ABG pCO2 42.4 ABG pO2 102.6 H ABG HCO3 30.7 H ABG O2 Saturation 98.0 ABG Base Excess 6.4 FiO2 2L Sodium 145.6 H Potassium 4.1 Chloride 104 Carbon Dioxide 34 H Anion Gap 8 BUN 22 H Creatinine 0.60 Est GFR ( Amer) > 60 Est GFR (Non-Af Amer) > 60 Glucose 101 Calcium 8.9 Magnesium 2.1 02/22/18 15:30 Tracheal Aspirate Gram Stain - Final 02/22/18 15:30 Tracheal Aspirate Sputum Culture - Final Streptococcus Pneumoniae Haemophilus Influenzae Greatly Reduced Normal Felicity Impressions: Chest/Abdomen CTA 02/22/18 08:04 IMPRESSION: No gross CT angio evidence of acute pulmonary emboli Motion artifact on the study. Question early or developing infiltrates in the bilateral upper lobes. KUB X-Ray 02/22/18 12:57 IMPRESSION: Nasogastric tube tip and side port in the stomach. Interstitial pulmonary edema at the lung base Chest X-Ray 02/28/18 06:00 IMPRESSION: 1. Interval removal of endotracheal tube and NG tube. Otherwise stable appearance of the chest. Assessment & Plan - Diagnosis (1) Acute and chronic respiratory failure Is this a current diagnosis for this admission?: Yes Plan: Respiratory rate, minute ventilation, FiO2, airway pressures suggest successful extubation will proceed with extubation (2) COPD exacerbation Is this a current diagnosis for this admission?: Yes Plan: unchanged (3) Pneumonia of both upper lobes Qualifiers: Pneumonia type: due to unspecified organism Qualified Code(s): J18.1 - Lobar pneumonia, unspecified organism Is this a current diagnosis for this admission?: Yes Plan: WBC normal minimal shift; a ABG within normal limits, negative cultures thus far (4) Sepsis Qualifiers: Sepsis type: sepsis due to unspecified organism Qualified Code(s): A41.9 - Sepsis, unspecified organism Is this a current diagnosis for this admission?: Yes - Time Time Spent with patient: Less than 15 minutes Total Critical Time (Minutes): 45
[2018-03-01] MEDS: OXYCODONE-ACETAMINOPHEN 5-325 MG TABLET PO PRN ×5 (01:43→23:12)
[2018-03-01] MEDS: CEFTRIAXONE SODIUM 1,000 MG in DEXTROSE 5%-WATER 50 ML IV SCH ×2 (01:44→21:49)
[2018-03-01] MEDS: GABAPENTIN 300 MG CAPSULE PO SCH ×3 (05:12→21:02)
[2018-03-01] MEDS: IPRATROPIUM/ALBUTEROL 0.5-2.5 MG/3 ML AMPUL NEB SCH ×3 (08:39→20:45)
[2018-03-01] MEDS: ACETYLCYSTEINE 20% SOLN 800 MG/4 ML VIAL.NEB NEB SCH ×2 (08:40→20:45)
[2018-03-01] MEDS: AZITHROMYCIN 500 MG in DEXTROSE 5%-WATER 250 ML IV SCH (09:12)
[2018-03-01] MEDS: ENOXAPARIN SODIUM INJ 40 MG/0.4 ML DISP.SYRIN SUBCUT SCH (09:12)
[2018-03-01] MEDS: PANTOPRAZOLE SODIUM 40 MG VIAL IV SCH (09:16)
[2018-03-01] MEDS ORDERED: FENTANYL 25 MCG/HR PATCH.TD72 TD SCH (12:00)
[2018-03-01] MEDS: NICOTINE 14 MG/24 HR PATCH.TD24 TD PRN (12:01)
--- NOTE | 2018-03-01 13:51 | PDOC PROGRESS REPORT ---
Subjective Subjective:: Patient complains of pain in his right foot. I seen patient while he is sitting on recliner. He is awake alert but looks confused and continuously talking to himself Reason For Visit: SEPSIS,ACUTE ON CHRONIC RESPIRATORY FAILURE Physical Exam Vital Signs: Temp Pulse Resp BP Pulse Ox 97.5 F 58 L 20 106/57 L 96 03/01/18 11:27 03/01/18 11:27 03/01/18 11:27 03/01/18 11:27 03/01/18 11:27 Intake & Output 02/28/18 03/01/18 03/02/18 06:59 06:59 06:59 Intake Total 1612 2341 828 Output Total 9785 4875 950 Balance -5993 -2534 -122 Weight 64.5 kg 61.3 kg General appearance: PRESENT: no acute distress Head exam: PRESENT: atraumatic, normocephalic Respiratory exam: PRESENT: rales - Right lung Cardiovascular exam: PRESENT: RRR. ABSENT: diastolic murmur, rubs, systolic murmur Pulses: PRESENT: normal dorsalis pedis pul GI/Abdominal exam: PRESENT: normal bowel sounds, soft. ABSENT: distended, guarding, mass, organolmegaly, rebound, tenderness Neurological exam: PRESENT: alert, awake, oriented to place Results Laboratory Results: 02/28/18 05:20 02/28/18 05:20 Impressions: Chest/Abdomen CTA 02/22/18 08:04 IMPRESSION: No gross CT angio evidence of acute pulmonary emboli Motion artifact on the study. Question early or developing infiltrates in the bilateral upper lobes. KUB X-Ray 02/22/18 12:57 IMPRESSION: Nasogastric tube tip and side port in the stomach. Interstitial pulmonary edema at the lung base Chest X-Ray 02/28/18 06:00 IMPRESSION: 1. Interval removal of endotracheal tube and NG tube. Otherwise stable appearance of the chest. Assessment & Plan - Diagnosis (1) Acute hypoxemic respiratory failure Is this a current diagnosis for this admission?: Yes Plan: Currently patient stable he is on oxygen via nasal cannula and desaturates around 95% while he is on 2 L of oxygen. (2) Bipolar 1 disorder Is this a current diagnosis for this admission?: Yes (3) COPD exacerbation Is this a current diagnosis for this admission?: Yes Plan: Stable and he is on breathing treatments. (4) Hypomagnesemia Is this a current diagnosis for this admission?: Yes Plan: Resolved (5) Pneumonia of both upper lobes Qualifiers: Pneumonia type: due to unspecified organism Qualified Code(s): J18.1 - Lobar pneumonia, unspecified organism Is this a current diagnosis for this admission?: Yes Plan: Treated
[2018-03-01] MEDS: ALPRAZOLAM 0.5 MG TABLET PO PRN ×2 (14:02→22:06)
[2018-03-01] MEDS: PREDNISONE 20 MG TABLET PO SCH (14:04)
[2018-03-01] MEDS ORDERED: MORPHINE SULFATE 10 MG/ML INJ IV ONE (14:30)
[2018-03-01 14:48] LABS: CREATINE KINASE MB 1.07 ng/mL (<4.55); TROPONIN I 0.052 ng/mL
[2018-03-01] MEDS: THIAMINE HCL 100 MG, FOLIC ACID 1 MG in NORMAL SALINE 250 ML IV SCH (18:41)
[2018-03-01] MEDS: OLANZAPINE 5 MG TABLET PO SCH (21:03)
--- NOTE | 2018-03-01 21:20 | EKG REPORT ---
SEVERITY:- ABNORMAL ECG - SINUS TACHYCARDIA ATRIAL PREMATURE COMPLEX PROBABLE LEFT ATRIAL ABNORMALITY LVH WITH SECONDARY REPOLARIZATION ABNORMALITY ANTERIOR ST ELEVATION, PROBABLY DUE TO LVH : Confirmed by: Ivan Oseguera 01-Mar-2018 21:19:49
[2018-03-01 22:01] LABS: CREATINE KINASE MB 1.06 ng/mL (<4.55); TROPONIN I 0.039 ng/mL
[2018-03-02] MEDS: OXYCODONE-ACETAMINOPHEN 5-325 MG TABLET PO PRN ×5 (03:20→18:16)
[2018-03-02 06:11] LABS: CREATINE KINASE MB 1.05 ng/mL (<4.55); TROPONIN I 0.041 ng/mL
[2018-03-02] MEDS: ALPRAZOLAM 0.5 MG TABLET PO PRN (06:30)
[2018-03-02] MEDS: GABAPENTIN 300 MG CAPSULE PO SCH ×3 (06:30→22:12)
[2018-03-02] MEDS: ACETYLCYSTEINE 20% SOLN 800 MG/4 ML VIAL.NEB NEB SCH ×2 (08:14→20:55)
[2018-03-02] MEDS: IPRATROPIUM/ALBUTEROL 0.5-2.5 MG/3 ML AMPUL NEB SCH ×3 (08:14→20:55)
[2018-03-02] MEDS: CYANOCOBALAMIN (VITAMIN B-12) INJ 1000 MCG/1 ML VIAL IM SCH (10:41)
[2018-03-02] MEDS: PANTOPRAZOLE SODIUM 40 MG VIAL IV SCH (10:42)
[2018-03-02] MEDS: AZITHROMYCIN 500 MG in DEXTROSE 5%-WATER 250 ML IV SCH (10:44)
[2018-03-02] MEDS: ENOXAPARIN SODIUM INJ 40 MG/0.4 ML DISP.SYRIN SUBCUT SCH (10:46)
--- NOTE | 2018-03-02 12:54 | PDOC PROGRESS REPORT ---
Subjective Progress Note for:: 03/02/18 Subjective:: Patient lying in bed, confused and sedated after he was given 2 g of Xanax and he has been also on Percocet and fentanyl patch. So he is not a candidate for discharge today. Reason For Visit: SEPSIS,ACUTE ON CHRONIC RESPIRATORY FAILURE Physical Exam Vital Signs: Temp Pulse Resp BP Pulse Ox 97.3 F 75 16 102/64 100 03/02/18 08:28 03/02/18 08:28 03/02/18 08:28 03/02/18 08:28 03/02/18 08:28 Intake & Output 03/01/18 03/02/18 03/03/18 06:59 06:59 06:59 Intake Total 2341 3677 Output Total 4898 3550 Balance -2534 127 Weight 61.3 kg 61 kg General appearance: PRESENT: no acute distress, well-developed, well-nourished Respiratory exam: PRESENT: clear to auscultation nyasia. ABSENT: rales, rhonchi, wheezes Cardiovascular exam: PRESENT: RRR. ABSENT: diastolic murmur, rubs, systolic murmur GI/Abdominal exam: PRESENT: normal bowel sounds, soft. ABSENT: distended, guarding, mass, organolmegaly, rebound, tenderness Neurological exam: PRESENT: altered - Confused and sedated Results Laboratory Results: 02/28/18 05:20 02/28/18 05:20 03/01/18 03/01/18 03/01/18 13:40 13:40 21:00 Creatine Kinase 249 H 201 H CK-MB (CK-2) 1.07 Troponin I 0.052 03/01/18 03/02/18 03/02/18 21:00 04:48 04:48 Creatine Kinase 110 CK-MB (CK-2) 1.06 1.05 Troponin I 0.039 0.041 Impressions: Chest/Abdomen CTA 02/22/18 08:04 IMPRESSION: No gross CT angio evidence of acute pulmonary emboli Motion artifact on the study. Question early or developing infiltrates in the bilateral upper lobes. KUB X-Ray 02/22/18 12:57 IMPRESSION: Nasogastric tube tip and side port in the stomach. Interstitial pulmonary edema at the lung base Chest X-Ray 02/28/18 06:00 IMPRESSION: 1. Interval removal of endotracheal tube and NG tube. Otherwise stable appearance of the chest. Assessment & Plan - Diagnosis (1) Acute hypoxemic respiratory failure Is this a current diagnosis for this admission?: Yes Plan: Currently patient stable he is on oxygen via nasal cannula and desaturates around 95% while he is on 2 L of oxygen. (2) Bipolar 1 disorder Is this a current diagnosis for this admission?: Yes Plan: Continue his home medication (3) COPD exacerbation Is this a current diagnosis for this admission?: Yes Plan: Stable and he is on breathing treatments. (4) Hypomagnesemia Is this a current diagnosis for this admission?: Yes Plan: Resolved (5) Pneumonia of both upper lobes Qualifiers: Pneumonia type: due to unspecified organism Qualified Code(s): J18.1 - Lobar pneumonia, unspecified organism Is this a current diagnosis for this admission?: Yes Plan: Treated
[2018-03-02] MEDS: PREDNISONE 20 MG TABLET PO SCH (14:42)
[2018-03-02] MEDS: NICOTINE 14 MG/24 HR PATCH.TD24 TD PRN (14:44)
[2018-03-02] MEDS: THIAMINE HCL 100 MG, FOLIC ACID 1 MG in NORMAL SALINE 250 ML IV SCH (18:15)
[2018-03-02] MEDS: CEFTRIAXONE SODIUM 1,000 MG in DEXTROSE 5%-WATER 50 ML IV SCH (22:11)
[2018-03-02] MEDS: OLANZAPINE 5 MG TABLET PO SCH (22:12)
[2018-03-03] MEDS: OXYCODONE-ACETAMINOPHEN 5-325 MG TABLET PO PRN ×3 (00:47→17:38)
[2018-03-03] MEDS: PROPRANOLOL HCL 20 MG TABLET PO PRN ×2 (00:47→17:38)
[2018-03-03] MEDS: GABAPENTIN 300 MG CAPSULE PO SCH ×3 (05:03→21:17)
[2018-03-03] MEDS: IPRATROPIUM/ALBUTEROL 0.5-2.5 MG/3 ML AMPUL NEB SCH ×3 (08:44→20:36)
[2018-03-03] MEDS: ACETYLCYSTEINE 20% SOLN 800 MG/4 ML VIAL.NEB NEB SCH (08:44)
[2018-03-03] MEDS: ENOXAPARIN SODIUM INJ 40 MG/0.4 ML DISP.SYRIN SUBCUT SCH (10:26)
[2018-03-03] MEDS: PANTOPRAZOLE SODIUM 40 MG VIAL IV SCH (10:30)
[2018-03-03] MEDS: CYANOCOBALAMIN (VITAMIN B-12) INJ 1000 MCG/1 ML VIAL IM SCH (10:30)
--- NOTE | 2018-03-03 13:11 | PDOC PROGRESS REPORT ---
Subjective Progress Note for:: 03/03/18 Subjective:: Mr. Hicks presented to the hospital on February 22 with shortness of breath and was noted to be hypoxic with sats of 70% on room air.He was diagnosed with acute respiratory failure given Rocephin and intubated in the emergency room. As his condition is improved patient extubated and transferred to [facility]. Currently patient is stable and can be discharged but it is there is p problem with placement. Patient does not know where to go. Please consult was discharged planners. Reason For Visit: SEPSIS,ACUTE ON CHRONIC RESPIRATORY FAILURE Physical Exam Vital Signs: Temp Pulse Resp BP Pulse Ox 97.4 F 94 16 140/75 H 98 03/03/18 07:46 03/03/18 08:44 03/03/18 08:44 03/03/18 07:46 03/03/18 07:46 Intake & Output 03/02/18 03/03/18 03/04/18 06:59 06:59 06:59 Intake Total 3627 3002 Output Total 3550 1850 Balance 77 1152 Weight 61 kg 59.7 kg General appearance: PRESENT: no acute distress, well-developed, well-nourished Head exam: PRESENT: atraumatic, normocephalic Eye exam: PRESENT: conjunctiva pink, EOMI, PERRLA. ABSENT: scleral icterus Respiratory exam: PRESENT: clear to auscultation nyasia. ABSENT: rales, rhonchi, wheezes Cardiovascular exam: PRESENT: RRR. ABSENT: diastolic murmur, rubs, systolic murmur GI/Abdominal exam: PRESENT: normal bowel sounds, soft. ABSENT: distended, guarding, mass, organolmegaly, rebound, tenderness Neurological exam: PRESENT: alert, awake. ABSENT: motor sensory deficit Results Laboratory Results: 02/28/18 05:20 02/28/18 05:20 03/01/18 03/01/18 03/01/18 13:40 13:40 21:00 Creatine Kinase 249 H 201 H CK-MB (CK-2) 1.07 Troponin I 0.052 03/01/18 03/02/18 03/02/18 21:00 04:48 04:48 Creatine Kinase 110 CK-MB (CK-2) 1.06 1.05 Troponin I 0.039 0.041 Impressions: Chest/Abdomen CTA 02/22/18 08:04 IMPRESSION: No gross CT angio evidence of acute pulmonary emboli Motion artifact on the study. Question early or developing infiltrates in the bilateral upper lobes. KUB X-Ray 02/22/18 12:57 IMPRESSION: Nasogastric tube tip and side port in the stomach. Interstitial pulmonary edema at the lung base Chest X-Ray 02/28/18 06:00 IMPRESSION: 1. Interval removal of endotracheal tube and NG tube. Otherwise stable appearance of the chest. Assessment & Plan - Diagnosis (1) Acute hypoxemic respiratory failure Is this a current diagnosis for this admission?: Yes Plan: Currently patient stable he is on oxygen via nasal cannula and desaturates around 95% while he is on 2 L of oxygen. (2) Bipolar 1 disorder Is this a current diagnosis for this admission?: Yes Plan: Continue his home medication (3) COPD exacerbation Is this a current diagnosis for this admission?: Yes Plan: Stable and he is on breathing treatments. (4) Hypomagnesemia Is this a current diagnosis for this admission?: Yes (5) Pneumonia of both upper lobes Qualifiers: Pneumonia type: due to unspecified organism Qualified Code(s): J18.1 - Lobar pneumonia, unspecified organism Is this a current diagnosis for this admission?: Yes Plan: Treated
[2018-03-03] MEDS: PREDNISONE 20 MG TABLET PO SCH (15:13)
[2018-03-03] MEDS: THIAMINE HCL 100 MG, FOLIC ACID 1 MG in NORMAL SALINE 250 ML IV SCH (17:38)
--- NOTE | 2018-03-03 17:51 | PDOC PROGRESS REPORT ---
Subjective Progress Note for:: 03/01/18 Subjective:: Intubated and sedated,But arousable Reason For Visit: SEPSIS,ACUTE ON CHRONIC RESPIRATORY FAILURE Physical Exam Vital Signs: Temp Pulse Resp BP Pulse Ox 97.8 F 88 18 137/77 H 94 03/01/18 07:18 03/01/18 07:18 03/01/18 07:18 03/01/18 07:18 03/01/18 07:18 Intake & Output 02/28/18 03/01/18 03/02/18 06:59 06:59 06:59 Intake Total 1612 2341 Output Total 6718 4877 Balance -7693 -5943 Weight 64.5 kg 61.3 kg General appearance: PRESENT: no acute distress, disheveled, thin Head exam: PRESENT: atraumatic, normocephalic Eye exam: PRESENT: conjunctiva pale, EOMI. ABSENT: nystagmus, periorbital swelling, scleral icterus Mouth exam: PRESENT: dry mucosa, neck supple, tongue midline Neck exam: ABSENT: carotid bruit, JVD, lymphadenopathy, thyromegaly, tracheal deviation, tracheostomy Respiratory exam: PRESENT: decreased breath sounds, prolonged expiratory phas, rales, rhonchi, unlabored. ABSENT: retraction, stridor Cardiovascular exam: PRESENT: RRR, +S1, +S2 Pulses: PRESENT: normal radial pulses GI/Abdominal exam: PRESENT: diminished bowel sounds, soft Extremities exam: ABSENT: clubbing, joint swelling Musculoskeletal exam: ABSENT: deformity, dislocation Neurological exam: PRESENT: awake Skin exam: PRESENT: dry, warm Results Laboratory Results: 02/28/18 05:20 02/28/18 05:20 Impressions: Chest/Abdomen CTA 02/22/18 08:04 IMPRESSION: No gross CT angio evidence of acute pulmonary emboli Motion artifact on the study. Question early or developing infiltrates in the bilateral upper lobes. KUB X-Ray 02/22/18 12:57 IMPRESSION: Nasogastric tube tip and side port in the stomach. Interstitial pulmonary edema at the lung base Chest X-Ray 02/28/18 06:00 IMPRESSION: 1. Interval removal of endotracheal tube and NG tube. Otherwise stable appearance of the chest. Assessment & Plan - Diagnosis (1) Acute and chronic respiratory failure Is this a current diagnosis for this admission?: Yes Plan: Stable at this time (2) COPD exacerbation Is this a current diagnosis for this admission?: Yes Plan: unchanged (3) Pneumonia of both upper lobes Qualifiers: Pneumonia type: due to unspecified organism Qualified Code(s): J18.1 - Lobar pneumonia, unspecified organism Is this a current diagnosis for this admission?: Yes Plan: Clinically improving (4) Sepsis Qualifiers: Sepsis type: sepsis due to unspecified organism Qualified Code(s): A41.9 - Sepsis, unspecified organism Is this a current diagnosis for this admission?: No
[2018-03-03] MEDS: CEFTRIAXONE SODIUM 1,000 MG in DEXTROSE 5%-WATER 50 ML IV SCH (21:15)
[2018-03-03] MEDS: OLANZAPINE 5 MG TABLET PO SCH (21:16)
[2018-03-03] MEDS: ALPRAZOLAM 0.5 MG TABLET PO PRN (21:17)
[2018-03-03] MEDS ORDERED: LORAZEPAM INJ 2 MG/1 ML VIAL ONE ×2 (22:23→23:55)
[2018-03-03] MEDS ORDERED: LORAZEPAM INJ 2 MG/1 ML VIAL IV ONE (22:30)
[2018-03-04] MEDS ORDERED: LORAZEPAM INJ 2 MG/1 ML VIAL IV ONE ×2 (00:15→06:45)
[2018-03-04] MEDS: GABAPENTIN 300 MG CAPSULE PO SCH ×3 (06:13→22:11)
[2018-03-04] MEDS ORDERED: LORAZEPAM INJ 2 MG/1 ML VIAL ONE (06:26)
[2018-03-04] MEDS ORDERED: MORPHINE SULFATE 10 MG/ML INJ IV ONE ×2 (07:00→08:41)
[2018-03-04] MEDS: IPRATROPIUM/ALBUTEROL 0.5-2.5 MG/3 ML AMPUL NEB SCH ×3 (08:06→21:39)
[2018-03-04] MEDS: OXYCODONE-ACETAMINOPHEN 5-325 MG TABLET PO PRN (08:28)
[2018-03-04 08:36] LABS: ANION GAP 11 (5-19); BLOOD UREA NITROGEN 23 mg/dL (7-20); CALCIUM 9.5 mg/dL (8.4-10.2); CARBON DIOXIDE 31 mmol/L (22-30); CHLORIDE 101 mmol/L (98-107); GLUCOSE 102 mg/dL (75-110); SODIUM 143.4 mmol/L (137-145)
[2018-03-04] MEDS ORDERED: DIPHENHYDRAMINE HCL 50 MG/ML VIAL IV ONE (08:43)
[2018-03-04 08:44] LABS: POTASSIUM 4.5 mmol/L (3.6-5.0)
[2018-03-04] MEDS: CYANOCOBALAMIN (VITAMIN B-12) INJ 1000 MCG/1 ML VIAL IM SCH (09:31)
[2018-03-04] MEDS: ENOXAPARIN SODIUM INJ 40 MG/0.4 ML DISP.SYRIN SUBCUT SCH (09:35)
[2018-03-04] MEDS: NICOTINE 14 MG/24 HR PATCH.TD24 TD PRN (09:49)
[2018-03-04] MEDS ORDERED: OLANZAPINE INJ/PF 10 MG SDV IM ONE (10:00)
[2018-03-04] MEDS: MORPHINE SULFATE 10 MG/ML INJ IV SCH ×2 (12:22→15:27)
[2018-03-04] MEDS: LORAZEPAM INJ 2 MG/1 ML VIAL IV PRN ×2 (12:23→18:32)
[2018-03-04] MEDS: MORPHINE SULFATE 10 MG/ML INJ IV PRN ×2 (13:09→16:29)
[2018-03-04] MEDS: DIPHENHYDRAMINE HCL 50 MG/ML VIAL IV PRN ×2 (13:11→23:04)
[2018-03-04] MEDS: HYDROMORPHONE HCL INJ/PF 2 MG/ML AMPULE IV SCH ×2 (17:42→20:12)
[2018-03-04] MEDS: THIAMINE HCL 100 MG, FOLIC ACID 1 MG in NORMAL SALINE 250 ML IV SCH (17:47)
[2018-03-04] MEDS: HYDROMORPHONE HCL INJ/PF 2 MG/ML AMPULE IV PRN ×3 (18:33→23:04)
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
[2018-03-05] MEDS: HYDROMORPHONE HCL INJ/PF 2 MG/ML AMPULE IV SCH ×4 (00:46→08:39)
[2018-03-05] MEDS: DIPHENHYDRAMINE HCL 50 MG/ML VIAL IV PRN (02:57)
[2018-03-05] MEDS: LORAZEPAM INJ 2 MG/1 ML VIAL IV PRN ×5 (04:35→16:49)
[2018-03-05] MEDS: HYDROMORPHONE HCL INJ/PF 2 MG/ML AMPULE IV PRN ×2 (04:35→16:50)
[2018-03-05] MEDS: GABAPENTIN 300 MG CAPSULE PO SCH ×3 (06:07→21:31)
[2018-03-05] MEDS: IPRATROPIUM/ALBUTEROL 0.5-2.5 MG/3 ML AMPUL NEB SCH ×3 (08:06→20:33)
[2018-03-05] MEDS: ENOXAPARIN SODIUM INJ 40 MG/0.4 ML DISP.SYRIN SUBCUT SCH (10:27)
[2018-03-05] MEDS ORDERED: ALPRAZOLAM 0.5 MG TABLET PO PRN (10:55)
--- NOTE | 2018-03-05 16:28 | PDOC PROGRESS REPORT ---
Subjective Progress Note for:: 03/05/18 Subjective:: .Patient appears more talkative and able to understand some of his words but still mumbling. He appears less agitated when compared to previous assessment. Nursing staff relate that patient is behaving better today Review of systems Difficult to obtain review of system since mumbling All significant diagnostics and laboratories had been reviewed Reason For Visit: SEPSIS,ACUTE ON CHRONIC RESPIRATORY FAILURE Physical Exam Vital Signs: Temp Pulse Resp BP Pulse Ox 97.7 F 69 20 100/72 96 03/04/18 23:28 03/05/18 02:00 03/04/18 23:28 03/04/18 23:28 03/04/18 23:28 Intake & Output 03/04/18 03/05/18 03/06/18 06:59 06:59 06:59 Intake Total 2438 829 Output Total 2000 600 Balance 438 229 Weight 58.9 kg 57.2 kg General appearance: PRESENT: cooperative, thin Head exam: PRESENT: atraumatic, normocephalic Eye exam: PRESENT: conjunctiva pink, EOMI, PERRLA Ear exam: PRESENT: normal external ear exam Mouth exam: PRESENT: moist Neck exam: PRESENT: full ROM. ABSENT: JVD, lymphadenopathy, tenderness Respiratory exam: PRESENT: clear to auscultation nyasia Cardiovascular exam: PRESENT: RRR. ABSENT: diastolic murmur, systolic murmur Vascular exam: PRESENT: normal capillary refill GI/Abdominal exam: PRESENT: normal bowel sounds, soft. ABSENT: tenderness Extremities exam: PRESENT: full ROM. ABSENT: pedal edema Musculoskeletal exam: PRESENT: ambulatory Neurological exam: PRESENT: alert, awake, oriented to person, oriented to place , CN II-XII grossly intact. ABSENT: oriented to time, oriented to situation Psychiatric exam: PRESENT: anxious Skin exam: PRESENT: intact, normal color Results Laboratory Results: 02/28/18 05:20 03/04/18 07:20 03/04/18 07:20 Sodium 143.4 Potassium 4.5 Chloride 101 Carbon Dioxide 31 H Anion Gap 11 BUN 23 H Creatinine 0.59 Est GFR ( Amer) > 60 Est GFR (Non-Af Amer) > 60 Glucose 102 Calcium 9.5 03/01/18 03/01/18 03/01/18 13:40 13:40 21:00 Creatine Kinase 249 H 201 H CK-MB (CK-2) 1.07 Troponin I 0.052 03/01/18 03/02/18 03/02/18 21:00 04:48 04:48 Creatine Kinase 110 CK-MB (CK-2) 1.06 1.05 Troponin I 0.039 0.041 Impressions: Chest/Abdomen CTA 02/22/18 08:04 IMPRESSION: No gross CT angio evidence of acute pulmonary emboli Motion artifact on the study. Question early or developing infiltrates in the bilateral upper lobes. KUB X-Ray 02/22/18 12:57 IMPRESSION: Nasogastric tube tip and side port in the stomach. Interstitial pulmonary edema at the lung base Chest X-Ray 02/28/18 06:00 IMPRESSION: 1. Interval removal of endotracheal tube and NG tube. Otherwise stable appearance of the chest. Assessment & Plan - Diagnosis (1) Pneumonia of both upper lobes Qualifiers: Pneumonia type: due to unspecified organism Qualified Code(s): J18.1 - Lobar pneumonia, unspecified organism Is this a current diagnosis for this admission?: Yes Plan: Resolved (2) Acute and chronic respiratory failure Is this a current diagnosis for this admission?: Yes Plan: Continue oxygen supplementation (3) COPD exacerbation Is this a current diagnosis for this admission?: Yes Plan: Resolved (4) Sepsis Qualifiers: Sepsis type: sepsis due to unspecified organism Qualified Code(s): A41.9 - Sepsis, unspecified organism Is this a current diagnosis for this admission?: No Plan: Resolved (5) Tobacco abuse Is this a current diagnosis for this admission?: Yes Plan: Continue nicotine patch (6) Polysubstance abuse Is this a current diagnosis for this admission?: Yes Plan: Aggravated by bipolar diosrder (7) Bipolar 1 disorder with moderate jovi Is this a current diagnosis for this admission?: Yes Plan: Continue ativan IV and Zyprexa (8) Tachycardia Is this a current diagnosis for this admission?: Yes Plan: Resolved (9) Altered mental status, unspecified Qualifiers: Altered mental status type: disorientation Qualified Code(s): R41.0 - Disorientation, unspecified Is this a current diagnosis for this admission?: Yes Plan: Appears to be related to withdrawal from opioids and benzos. Will discontinue morphine since that shortage and place him on rescue Dilaudid. To restart OxyContin as outpatient and Xanax. - Time Time Spent with patient: 15-24 minutes Medications reviewed and adjusted accordingly: Yes Anticipated discharge: Home Within: within 72 hours - Inpatient Certification Based on my medical assessment, after consideration of the patient's comorbidities, presenting symptoms, or acuity I expect that the services needed warrant INPATIENT care.: Yes I certify that my determination is in accordance with my understanding of Medicare's requirements for reasonable and necessary INPATIENT services [42 CFR 412.3e].: Yes Medical Necessity: Significant Comorbidiites Make Outpatient Treatment Too Risky , Need Close Monitoring Due to Risk of Patient Decompensation
[2018-03-05] MEDS: THIAMINE HCL 100 MG, FOLIC ACID 1 MG in NORMAL SALINE 250 ML IV SCH (18:09)
--- NOTE | 2018-03-05 18:58 | PDOC PROGRESS REPORT ---
Subjective Progress Note for:: 03/04/18 Subjective:: IRemains highly agitated Reason For Visit: SEPSIS,ACUTE ON CHRONIC RESPIRATORY FAILURE Physical Exam Vital Signs: Temp Pulse Resp BP Pulse Ox 97.6 F 89 18 103/73 94 03/04/18 07:39 03/04/18 07:39 03/04/18 07:39 03/04/18 07:39 03/04/18 07:39 Intake & Output 03/03/18 03/04/18 03/05/18 06:59 06:59 06:59 Intake Total 3002 2438 Output Total 1850 1999 Balance 1152 438 Weight 59.7 kg 58.9 kg General appearance: PRESENT: disheveled, thin. ABSENT: cooperative Head exam: PRESENT: normocephalic Eye exam: PRESENT: EOMI. ABSENT: nystagmus, periorbital swelling, scleral icterus Mouth exam: PRESENT: dry mucosa, neck supple, tongue midline Neck exam: ABSENT: carotid bruit, JVD, lymphadenopathy, thyromegaly, tracheal deviation, tracheostomy Respiratory exam: PRESENT: decreased breath sounds, prolonged expiratory phas, rhonchi, symmetrical, unlabored. ABSENT: retraction, stridor Cardiovascular exam: PRESENT: RRR, +S1, +S2 Pulses: PRESENT: normal radial pulses GI/Abdominal exam: PRESENT: diminished bowel sounds, soft Extremities exam: PRESENT: full ROM. ABSENT: clubbing, joint swelling Musculoskeletal exam: PRESENT: full ROM. ABSENT: deformity, dislocation Neurological exam: PRESENT: awake. ABSENT: oriented to place, oriented to time , oriented to situation Psychiatric exam: PRESENT: agitated Focused psych exam: PRESENT: pressured speech, restlessness Skin exam: PRESENT: dry, warm Results Laboratory Results: 02/28/18 05:20 03/04/18 07:20 03/04/18 07:20 Sodium 143.4 Potassium 4.5 Chloride 101 Carbon Dioxide 31 H Anion Gap 11 BUN 23 H Creatinine 0.59 Est GFR ( Amer) > 60 Est GFR (Non-Af Amer) > 60 Glucose 102 Calcium 9.5 03/01/18 03/01/18 03/01/18 13:40 13:40 21:00 Creatine Kinase 249 H 201 H CK-MB (CK-2) 1.07 Troponin I 0.052 03/01/18 03/02/18 03/02/18 21:00 04:48 04:48 Creatine Kinase 110 CK-MB (CK-2) 1.06 1.05 Troponin I 0.039 0.041 Impressions: Chest/Abdomen CTA 02/22/18 08:04 IMPRESSION: No gross CT angio evidence of acute pulmonary emboli Motion artifact on the study. Question early or developing infiltrates in the bilateral upper lobes. KUB X-Ray 02/22/18 12:57 IMPRESSION: Nasogastric tube tip and side port in the stomach. Interstitial pulmonary edema at the lung base Chest X-Ray 02/28/18 06:00 IMPRESSION: 1. Interval removal of endotracheal tube and NG tube. Otherwise stable appearance of the chest. Assessment & Plan - Diagnosis (1) Acute and chronic respiratory failure Is this a current diagnosis for this admission?: Yes Plan: Stable at this time (2) COPD exacerbation Is this a current diagnosis for this admission?: Yes Plan: unchanged (3) Pneumonia of both upper lobes Qualifiers: Pneumonia type: due to unspecified organism Qualified Code(s): J18.1 - Lobar pneumonia, unspecified organism Is this a current diagnosis for this admission?: Yes Plan: Resolving (4) Sepsis Qualifiers: Sepsis type: sepsis due to unspecified organism Qualified Code(s): A41.9 - Sepsis, unspecified organism Is this a current diagnosis for this admission?: No - Plan Summary Plan Summary: Patient is stable will follow peripherally thank you very much for me and participate in his care
[2018-03-05] MEDS: OLANZAPINE INJ/PF 10 MG SDV IM SCH (21:30)
[2018-03-05] MEDS: OXYCODONE HCL SR 10 MG TABLET PO SCH (21:31)
[2018-03-06] MEDS: GABAPENTIN 300 MG CAPSULE PO SCH ×3 (05:04→21:43)
[2018-03-06 05:30] LABS: ABSOLUTE EOSINOPHILS # (AUTO) 0.1 10^3/uL (0.0-0.6); ABSOLUTE LYMPHOCYTES (AUTO) 1.8 10^3/uL (0.5-4.7); ABSOLUTE MONOCYTES (AUTO) 0.5 10^3/uL (0.1-1.4); ABSOLUTE NEUT (AUTO) 4.8 10^3/uL (1.7-8.2); BASOPHILS % (AUTO) 0.1 % (0-2); EOSINOPHILS % (AUTO) 1.4 % (0-6); HEMATOCRIT 39.2 % (37.9-51.0); HEMOGLOBIN 13.2 g/dL (13.5-17.0); LYMPHOCYTES % (AUTO) 25.4 % (13-45); MEAN CORPUSCULAR HEMOGLOBIN 30.1 pg (27.0-33.4); MEAN CORPUSCULAR HGB CONC 33.6 g/dL (32.0-36.0); MEAN CORPUSCULAR VOLUME 90 fl (80-97); MONOCYTES % (AUTO) 6.5 % (3-13); PLATELET COUNT 222 10^3/uL (150-450); RED BLOOD COUNT 4.38 10^6/uL (4.35-5.55); RED CELL DISTRIBUTION WIDTH 14.4 % (11.5-14.0); SEGMENTED NEUTROPHILS % (AUTO) 66.6 % (42-78); TOTAL CELLS COUNTED % (AUTO) 100 %; WHITE BLOOD COUNT 7.1 10^3/uL (4.0-10.5)
[2018-03-06 05:51] LABS: ALANINE AMINOTRANSFERASE 71 U/L (21-72); ALBUMIN 3.4 g/dL (3.5-5.0); ALKALINE PHOSPHATASE 100 U/L (38-126); ANION GAP 10 (5-19); ASPARTATE AMINO TRANSFERASE 32 U/L (17-59); BILIRUBIN,DIRECT 0.2 mg/dL (0.0-0.4); BILIRUBIN,TOTAL 0.5 mg/dL (0.2-1.3); BLOOD UREA NITROGEN 19 mg/dL (7-20); CALCIUM 9.2 mg/dL (8.4-10.2); CARBON DIOXIDE 30 mmol/L (22-30); CHLORIDE 101 mmol/L (98-107); GLUCOSE 77 mg/dL (75-110); POTASSIUM 3.9 mmol/L (3.6-5.0); TOTAL PROTEIN 5.9 g/dL (6.3-8.2)
[2018-03-06] MEDS: IPRATROPIUM/ALBUTEROL 0.5-2.5 MG/3 ML AMPUL NEB SCH ×3 (07:57→20:39)
[2018-03-06] MEDS: HYDROMORPHONE HCL INJ/PF 2 MG/ML AMPULE IV PRN ×2 (08:10→10:55)
[2018-03-06] MEDS: LORAZEPAM INJ 2 MG/1 ML VIAL IV PRN ×3 (08:10→16:09)
[2018-03-06] MEDS: OXYCODONE HCL SR 10 MG TABLET PO SCH ×2 (10:52→21:44)
[2018-03-06] MEDS: ENOXAPARIN SODIUM INJ 40 MG/0.4 ML DISP.SYRIN SUBCUT SCH (10:56)
[2018-03-06] MEDS: DIPHENHYDRAMINE HCL 50 MG/ML VIAL IV PRN ×2 (13:48→19:29)
[2018-03-06] MEDS: HYDROMORPHONE HCL INJ/PF 2 MG/ML AMPULE IV SCH ×3 (16:08→21:58)
[2018-03-06] MEDS: THIAMINE HCL 100 MG, FOLIC ACID 1 MG in NORMAL SALINE 250 ML IV SCH (18:11)
--- NOTE | 2018-03-06 18:35 | PDOC PROGRESS REPORT ---
Subjective Progress Note for:: 03/06/18 Subjective:: Unable to obtain due to patient's mental status. Nurse reports that patient gets agitated off and on and that staff feels threatened by him. Review of systems Unable to obtain due to patient's mental status All significant diagnostics and laboratories had been reviewed Reason For Visit: SEPSIS,ACUTE ON CHRONIC RESPIRATORY FAILURE Physical Exam Vital Signs: Temp Pulse Resp BP Pulse Ox 97.7 F 99 20 108/62 98 03/06/18 12:00 03/06/18 14:00 03/06/18 13:33 03/06/18 12:00 03/06/18 13:33 Intake & Output 03/05/18 03/06/18 03/07/18 06:59 06:59 06:59 Intake Total 829 870 250 Output Total 600 0 300 Balance 229 870 -50 Weight 57.2 kg 57.8 kg General appearance: PRESENT: thin Head exam: PRESENT: atraumatic, normocephalic Eye exam: PRESENT: conjunctiva pink, EOMI, PERRLA Ear exam: PRESENT: normal external ear exam Mouth exam: PRESENT: moist Neck exam: ABSENT: JVD, lymphadenopathy, tenderness Respiratory exam: PRESENT: clear to auscultation nyasia Cardiovascular exam: PRESENT: RRR. ABSENT: diastolic murmur, systolic murmur GI/Abdominal exam: PRESENT: normal bowel sounds, soft. ABSENT: tenderness Extremities exam: PRESENT: full ROM. ABSENT: pedal edema Musculoskeletal exam: ABSENT: ambulatory Neurological exam: PRESENT: other - sedated Skin exam: PRESENT: normal color Results Laboratory Results: 03/06/18 05:10 03/06/18 05:10 03/06/18 03/06/18 05:10 05:10 WBC 7.1 RBC 4.38 Hgb 13.2 L Hct 39.2 MCV 90 MCH 30.1 MCHC 33.6 RDW 14.4 H Plt Count 222 Seg Neutrophils % 66.6 Lymphocytes % 25.4 Monocytes % 6.5 Eosinophils % 1.4 Basophils % 0.1 Absolute Neutrophils 4.8 Absolute Lymphocytes 1.8 Absolute Monocytes 0.5 Absolute Eosinophils 0.1 Absolute Basophils 0.0 Sodium 141.0 Potassium 3.9 Chloride 101 Carbon Dioxide 30 Anion Gap 10 BUN 19 Creatinine 0.62 Est GFR ( Amer) > 60 Est GFR (Non-Af Amer) > 60 Glucose 77 Calcium 9.2 Magnesium 2.0 Total Bilirubin 0.5 AST 32 ALT 71 Alkaline Phosphatase 100 Total Protein 5.9 L Albumin 3.4 L 03/01/18 03/01/18 03/01/18 13:40 13:40 21:00 Creatine Kinase 249 H 201 H CK-MB (CK-2) 1.07 Troponin I 0.052 03/01/18 03/02/18 03/02/18 21:00 04:48 04:48 Creatine Kinase 110 CK-MB (CK-2) 1.06 1.05 Troponin I 0.039 0.041 Impressions: Chest/Abdomen CTA 02/22/18 08:04 IMPRESSION: No gross CT angio evidence of acute pulmonary emboli Motion artifact on the study. Question early or developing infiltrates in the bilateral upper lobes. KUB X-Ray 02/22/18 12:57 IMPRESSION: Nasogastric tube tip and side port in the stomach. Interstitial pulmonary edema at the lung base Chest X-Ray 02/28/18 06:00 IMPRESSION: 1. Interval removal of endotracheal tube and NG tube. Otherwise stable appearance of the chest. Assessment & Plan - Diagnosis (1) Pneumonia of both upper lobes Qualifiers: Pneumonia type: due to unspecified organism Qualified Code(s): J18.1 - Lobar pneumonia, unspecified organism Is this a current diagnosis for this admission?: Yes Plan: Resolved (2) Acute and chronic respiratory failure Is this a current diagnosis for this admission?: Yes Plan: Continue oxygen supplementation (3) COPD exacerbation Is this a current diagnosis for this admission?: Yes Plan: Resolved (4) Sepsis Qualifiers: Sepsis type: sepsis due to unspecified organism Qualified Code(s): A41.9 - Sepsis, unspecified organism Is this a current diagnosis for this admission?: Yes Plan: Resolved (5) Tobacco abuse Is this a current diagnosis for this admission?: Yes Plan: Continue nicotine patch (6) Polysubstance abuse Is this a current diagnosis for this admission?: Yes Plan: Aggravated by bipolar disorder (7) Bipolar 1 disorder with moderate jovi Is this a current diagnosis for this admission?: Yes Plan: Continue ativan IV and Zyprexa (8) Tachycardia Is this a current diagnosis for this admission?: Yes Plan: Resolved (9) Altered mental status, unspecified Qualifiers: Altered mental status type: disorientation Qualified Code(s): R41.0 - Disorientation, unspecified Is this a current diagnosis for this admission?: Yes Plan: Appears to be related to withdrawal from opioids and benzos. Adjusted doses of the lower body since appears to be responding to this medication. Nurse advised to administer first Dilaudid and then within an hour Benadryl. Continue Ativan. Continue OxyContin if able to swallow. Increase dose of gabapentin - Time Time Spent with patient: 15-24 minutes Medications reviewed and adjusted accordingly: Yes Anticipated discharge: Home Within: Other - Unable to determine at this time - Inpatient Certification Based on my medical assessment, after consideration of the patient's comorbidities, presenting symptoms, or acuity I expect that the services needed warrant INPATIENT care.: Yes I certify that my determination is in accordance with my understanding of Medicare's requirements for reasonable and necessary INPATIENT services [42 CFR 412.3e].: Yes Medical Necessity: Need Close Monitoring Due to Risk of Patient Decompensation, Need for Neurological Checks
[2018-03-06] MEDS: OLANZAPINE INJ/PF 10 MG SDV IM SCH (22:29)
[2018-03-07] MEDS: HYDROMORPHONE HCL INJ/PF 2 MG/ML AMPULE IV SCH ×8 (00:57→21:36)
[2018-03-07] MEDS: GABAPENTIN 300 MG CAPSULE PO SCH ×2 (06:32→15:33)
[2018-03-07] MEDS: DIPHENHYDRAMINE HCL 50 MG/ML VIAL IV PRN ×2 (08:12→15:34)
[2018-03-07] MEDS: IPRATROPIUM/ALBUTEROL 0.5-2.5 MG/3 ML AMPUL NEB SCH ×3 (08:51→20:42)
[2018-03-07] MEDS: ENOXAPARIN SODIUM INJ 40 MG/0.4 ML DISP.SYRIN SUBCUT SCH (09:54)
[2018-03-07] MEDS: OXYCODONE HCL SR 10 MG TABLET PO SCH ×2 (09:54→21:36)
[2018-03-07] MEDS: LORAZEPAM INJ 2 MG/1 ML VIAL IV PRN ×2 (09:54→11:08)
--- NOTE | 2018-03-07 16:03 | PDOC PROGRESS REPORT ---
Subjective Progress Note for:: 03/07/18 Subjective:: Unable to obtain due to patient's mental status. Nurse reports that patient does well with Dilaudid but not with the other medicines such as Ativan. He still getting some outbursts of agitation but there has been some improvement when compared to yesterday Review of systems Unable to obtain due to patient's mental status All significant diagnostics and laboratories had been reviewed Reason For Visit: SEPSIS,ACUTE ON CHRONIC RESPIRATORY FAILURE Physical Exam Vital Signs: Temp Pulse Resp BP Pulse Ox 98.4 F 97 18 109/69 92 03/07/18 05:00 03/07/18 05:00 03/07/18 05:00 03/07/18 05:00 03/07/18 05:00 Intake & Output 03/06/18 03/07/18 03/08/18 06:59 06:59 06:59 Intake Total 870 290 Output Total 0 300 Balance 870 -10 Weight 57.8 kg 57.7 kg General appearance: PRESENT: other - somnolent Head exam: PRESENT: atraumatic, normocephalic Eye exam: PRESENT: EOMI, PERRLA Mouth exam: PRESENT: moist Neck exam: ABSENT: JVD, lymphadenopathy, tenderness Respiratory exam: PRESENT: clear to auscultation nyasia Cardiovascular exam: PRESENT: RRR. ABSENT: diastolic murmur, systolic murmur Vascular exam: PRESENT: normal capillary refill GI/Abdominal exam: PRESENT: normal bowel sounds, soft. ABSENT: tenderness Extremities exam: PRESENT: full ROM. ABSENT: pedal edema Musculoskeletal exam: ABSENT: ambulatory Neurological exam: PRESENT: other - somnolent Skin exam: PRESENT: normal color Results Laboratory Results: 03/06/18 05:10 03/06/18 05:10 03/01/18 03/01/18 03/01/18 13:40 13:40 21:00 Creatine Kinase 249 H 201 H CK-MB (CK-2) 1.07 Troponin I 0.052 03/01/18 03/02/18 03/02/18 21:00 04:48 04:48 Creatine Kinase 110 CK-MB (CK-2) 1.06 1.05 Troponin I 0.039 0.041 Impressions: Chest/Abdomen CTA 02/22/18 08:04 IMPRESSION: No gross CT angio evidence of acute pulmonary emboli Motion artifact on the study. Question early or developing infiltrates in the bilateral upper lobes. KUB X-Ray 02/22/18 12:57 IMPRESSION: Nasogastric tube tip and side port in the stomach. Interstitial pulmonary edema at the lung base Chest X-Ray 02/28/18 06:00 IMPRESSION: 1. Interval removal of endotracheal tube and NG tube. Otherwise stable appearance of the chest. Assessment & Plan - Diagnosis (1) Pneumonia of both upper lobes Qualifiers: Pneumonia type: due to unspecified organism Qualified Code(s): J18.1 - Lobar pneumonia, unspecified organism Is this a current diagnosis for this admission?: Yes Plan: Resolved (2) Acute and chronic respiratory failure Is this a current diagnosis for this admission?: Yes Plan: Continue oxygen supplementation. Extubated on February 27 (3) COPD exacerbation Is this a current diagnosis for this admission?: Yes Plan: Resolved (4) Sepsis Qualifiers: Sepsis type: sepsis due to unspecified organism Qualified Code(s): A41.9 - Sepsis, unspecified organism Is this a current diagnosis for this admission?: Yes Plan: Resolved. Due to pneumonia (5) Tobacco abuse Is this a current diagnosis for this admission?: Yes Plan: Continue nicotine patch (6) Polysubstance abuse Is this a current diagnosis for this admission?: Yes Plan: Aggravated by bipolar disorder (7) Bipolar 1 disorder with moderate jovi Is this a current diagnosis for this admission?: Yes Plan: To place on Haldol 2 mg IV every 4 hours as needed for agitation. Consult psych (8) Tachycardia Is this a current diagnosis for this admission?: Yes Plan: Resolved (9) Altered mental status, unspecified Qualifiers: Altered mental status type: disorientation Qualified Code(s): R41.0 - Disorientation, unspecified Is this a current diagnosis for this admission?: Yes Plan: Appears to be Withdrawing likely from opioids. Will continue current regimen of Dilaudid. Will add Haldol IV as needed. Discontinue Ativan, Benadryl and Zyprexa. Will also discontinue Xanax which she used to take at home. Continue gabapentin and clonidine patch - Time Time Spent with patient: 15-24 minutes Medications reviewed and adjusted accordingly: Yes Anticipated discharge: Home, Other - Unable to tell at this time - Inpatient Certification Based on my medical assessment, after consideration of the patient's comorbidities, presenting symptoms, or acuity I expect that the services needed warrant INPATIENT care.: Yes Medical Necessity: Significant Comorbidiites Make Outpatient Treatment Too Risky , Need Close Monitoring Due to Risk of Patient Decompensation
[2018-03-07] MEDS: HALOPERIDOL LACTATE INJ 5 MG/1 ML VIAL IV PRN (16:11)
[2018-03-07] MEDS: THIAMINE HCL 100 MG, FOLIC ACID 1 MG in NORMAL SALINE 250 ML IV SCH (17:23)
[2018-03-07] MEDS: HYDROMORPHONE HCL INJ/PF 2 MG/ML AMPULE IV PRN (17:54)
[2018-03-07] MEDS: GABAPENTIN 400 MG CAPSULE PO SCH (21:57)
[2018-03-08] MEDS: HYDROMORPHONE HCL INJ/PF 2 MG/ML AMPULE IV SCH ×4 (01:03→09:19)
[2018-03-08] MEDS: GABAPENTIN 400 MG CAPSULE PO SCH (05:59)
[2018-03-08] MEDS: NICOTINE 14 MG/24 HR PATCH.TD24 TD PRN (06:34)
[2018-03-08] MEDS: HYDROMORPHONE HCL INJ/PF 2 MG/ML AMPULE IV PRN (07:43)
[2018-03-08] MEDS: IPRATROPIUM/ALBUTEROL 0.5-2.5 MG/3 ML AMPUL NEB SCH ×3 (08:47→20:47)
[2018-03-08] MEDS: OXYCODONE HCL SR 10 MG TABLET PO SCH (09:20)
[2018-03-08] MEDS: BENZTROPINE MESYLATE INJ 2 MG/2 ML AMPULE IM SCH (09:21)
[2018-03-08] MEDS: ENOXAPARIN SODIUM INJ 40 MG/0.4 ML DISP.SYRIN SUBCUT SCH (09:23)
[2018-03-08] MEDS ORDERED: CLONIDINE 0.1 MG/24 HR PATCH.TDWK TD SCH (10:00)
[2018-03-08] MEDS ORDERED: OXYCODONE HCL IR 5 MG TABLET PO SCH (11:30)
[2018-03-08] MEDS ORDERED: (PENDING PHARMACY ID) (Oxycodone Hcl [Oxycontin] 30 MG) PO SCH (11:30)
[2018-03-08] MEDS ORDERED: HYDROMORPHONE HCL INJ/PF 2 MG/ML AMPULE IV PRN (11:33)
[2018-03-08] MEDS: ALPRAZOLAM 0.5 MG TABLET PO SCH ×2 (13:59→21:11)
[2018-03-08] MEDS ORDERED: (PENDING PHARMACY ID) (Dextroamphetamine/Amphetamine [Adderall 30 Mg Tablet] 30 MG) PO SCH (14:00)
--- NOTE | 2018-03-08 16:40 | PDOC PROGRESS REPORT ---
Subjective Progress Note for:: 03/08/18 Subjective:: Patient is very difficult to understand as he is edentulous. I can understand a word every so often. He also has psychiatric disorder and is very rambling in his conversation. There is a lot of mumbling. He tells me he is feeling better overall. His pain is better controlled. He is breathing okay. He is eating well. He is anxious to get home but does not want to leave until he is safe. Reason For Visit: SEPSIS,ACUTE ON CHRONIC RESPIRATORY FAILURE Physical Exam Vital Signs: Temp Pulse Resp BP Pulse Ox 99.4 F 103 H 16 108/67 90 L 03/08/18 15:15 03/08/18 15:15 03/08/18 15:15 03/08/18 15:15 03/08/18 15:15 Intake & Output 03/07/18 03/08/18 03/09/18 06:59 06:59 06:59 Intake Total 290 1596 500 Output Total 300 975 Balance -10 621 500 Weight 57.7 kg 55.4 kg General appearance: PRESENT: no acute distress, cooperative, disheveled, thin Head exam: PRESENT: atraumatic, normocephalic Eye exam: PRESENT: conjunctiva pink, EOMI. ABSENT: scleral icterus Ear exam: PRESENT: normal external ear exam Mouth exam: PRESENT: moist, neck supple Throat exam: ABSENT: post pharyngeal erythema Neck exam: PRESENT: lymphadenopathy. ABSENT: tenderness Respiratory exam: PRESENT: decreased breath sounds, unlabored, wheezes. ABSENT : rales, rhonchi Cardiovascular exam: PRESENT: RRR. ABSENT: systolic murmur Pulses: PRESENT: normal radial pulses Vascular exam: PRESENT: normal capillary refill GI/Abdominal exam: PRESENT: normal bowel sounds, soft. ABSENT: distended, mass Rectal exam: PRESENT: deferred Extremities exam: ABSENT: calf tenderness, joint swelling, pedal edema Musculoskeletal exam: PRESENT: other - Sarcopenia Neurological exam: PRESENT: alert, awake, oriented to person, oriented to place Psychiatric exam: PRESENT: anxious Skin exam: PRESENT: dry, intact, warm Results Laboratory Results: 03/06/18 05:10 03/06/18 05:10 03/01/18 03/01/18 03/01/18 13:40 13:40 21:00 Creatine Kinase 249 H 201 H CK-MB (CK-2) 1.07 Troponin I 0.052 03/01/18 03/02/18 03/02/18 21:00 04:48 04:48 Creatine Kinase 110 CK-MB (CK-2) 1.06 1.05 Troponin I 0.039 0.041 Impressions: Chest/Abdomen CTA 02/22/18 08:04 IMPRESSION: No gross CT angio evidence of acute pulmonary emboli Motion artifact on the study. Question early or developing infiltrates in the bilateral upper lobes. KUB X-Ray 02/22/18 12:57 IMPRESSION: Nasogastric tube tip and side port in the stomach. Interstitial pulmonary edema at the lung base Chest X-Ray 02/28/18 06:00 IMPRESSION: 1. Interval removal of endotracheal tube and NG tube. Otherwise stable appearance of the chest. Assessment & Plan - Diagnosis (1) Altered mental status, unspecified Qualifiers: Altered mental status type: disorientation Qualified Code(s): R41.0 - Disorientation, unspecified Is this a current diagnosis for this admission?: Yes Plan: Patient has psychotic disorder with bipolar 1 and moderate jovi. He also is opioid dependent, opioids prescribed for chronic back pain. The thought is that he was having opioid withdrawal and he was started on IV opioids, Dilaudid. After about 12 hours of this he became more stable and less agitated , less altered. He was also started on Haldol, he does not take an antipsychotic as an outpatient. Today I am trying to transition him back to his home medications. He is overall improved from this perspective. (2) Chronic pain Is this a current diagnosis for this admission?: Yes Plan: He is on OxyContin 30 mg p.o. every 12 hours. I have started him on oxycodone 10 mg every 6 hours for a total of 40 mg daily, if his pain is well controlled and his mental status is baseline I will try to discharge him on a lower total 24-hour dose of the oxycodone and will recommend close follow-up. He has breakthrough Dilaudid available until we get his chronic pain under steady control. (3) Chronic, continuous use of opioids Is this a current diagnosis for this admission?: Yes Plan: Patient has chronic back pain secondary to trauma. Please see above. (4) Acute and chronic respiratory failure Is this a current diagnosis for this admission?: Yes Plan: Was admitted with acute hypoxemic respiratory failure. He was found to have pneumonia and COPD exacerbation. He was initially on the ventilator and has been extubated for several days. He is much improved from this perspective. (5) Bipolar 1 disorder with moderate jovi Is this a current diagnosis for this admission?: Yes Plan: Patient may be experiencing mild to moderate jovi over the past few days, per staff this is improving. Patient has been started on Haldol and benztropine by the hospitalist service. He is doing well on these medications. Will monitor. May need psychiatric consult prior to discharge. (6) COPD exacerbation Is this a current diagnosis for this admission?: Yes Plan: He is likely back to baseline. He will continue on duo nebs [id number] with as needed albuterol. (7) Nicotine dependence Is this a current diagnosis for this admission?: Yes Plan: NicoDerm patch in place. (8) Pneumonia of both upper lobes Qualifiers: Pneumonia type: due to unspecified organism Qualified Code(s): J18.1 - Lobar pneumonia, unspecified organism Is this a current diagnosis for this admission?: Yes Plan: Patient grew strep pneumo and Haemophilus influenza and his sputum culture. Antibiotic therapy has been completed. - Time Time Spent with patient: 25-34 minutes Anticipated discharge: Home - Inpatient Certification Based on my medical assessment, after consideration of the patient's comorbidities, presenting symptoms, or acuity I expect that the services needed warrant INPATIENT care.: Yes I certify that my determination is in accordance with my understanding of Medicare's requirements for reasonable and necessary INPATIENT services [42 CFR 412.3e].: Yes - Both Medical Necessity: Significant Comorbidiites Make Outpatient Treatment Too Risky , Need Close Monitoring Due to Risk of Patient Decompensation, Need for Pain Control
[2018-03-08] MEDS: THIAMINE HCL 100 MG, FOLIC ACID 1 MG in NORMAL SALINE 250 ML IV SCH (17:32)
[2018-03-09] MEDS: ALPRAZOLAM 0.5 MG TABLET PO SCH ×3 (05:13→21:17)
[2018-03-09] MEDS: IPRATROPIUM/ALBUTEROL 0.5-2.5 MG/3 ML AMPUL NEB SCH ×3 (08:22→20:54)
[2018-03-09] MEDS: ENOXAPARIN SODIUM INJ 40 MG/0.4 ML DISP.SYRIN SUBCUT SCH (10:25)
[2018-03-09] MEDS: BENZTROPINE MESYLATE INJ 2 MG/2 ML AMPULE IM SCH (10:25)
--- NOTE | 2018-03-09 14:18 | PDOC PROGRESS REPORT ---
Subjective Progress Note for:: 03/09/18 Subjective:: Patient is sleeping when I enter his room. He is easily arousable to voice. He reports that his pain is better controlled today. He slept well last night. He does not feel anxious. His appetite has been fair. No abdominal pain chest pain or shortness of breath. He does not think he has had any fevers or chills but he cannot be sure. Reason For Visit: SEPSIS,ACUTE ON CHRONIC RESPIRATORY FAILURE Physical Exam Vital Signs: Temp Pulse Resp BP Pulse Ox 97.5 F 98 18 94/56 L 94 03/09/18 11:28 03/09/18 13:49 03/09/18 13:49 03/09/18 11:28 03/09/18 13:49 Intake & Output 03/08/18 03/09/18 03/10/18 06:59 06:59 06:59 Intake Total 1596 2278 210 Output Total 975 2425 Balance 621 -147 210 Weight 55.4 kg 58.1 kg General appearance: PRESENT: no acute distress, cooperative, thin Head exam: PRESENT: atraumatic, normocephalic, other - Bitemporal wasting Eye exam: PRESENT: conjunctiva pink, EOMI. ABSENT: scleral icterus Mouth exam: PRESENT: moist, neck supple Teeth exam: PRESENT: edentulous Neck exam: ABSENT: lymphadenopathy Respiratory exam: PRESENT: clear to auscultation nyasia, decreased breath sounds, unlabored. ABSENT: rales, rhonchi, wheezes Cardiovascular exam: PRESENT: RRR. ABSENT: systolic murmur Pulses: PRESENT: normal radial pulses GI/Abdominal exam: PRESENT: normal bowel sounds, soft. ABSENT: distended, tenderness Rectal exam: PRESENT: deferred Extremities exam: ABSENT: calf tenderness, pedal edema Neurological exam: PRESENT: alert, awake, oriented to person, oriented to situation. ABSENT: oriented to place Psychiatric exam: ABSENT: agitated, anxious Skin exam: PRESENT: dry, intact, warm Results Laboratory Results: 03/06/18 05:10 03/06/18 05:10 03/01/18 03/01/18 03/01/18 13:40 13:40 21:00 Creatine Kinase 249 H 201 H CK-MB (CK-2) 1.07 Troponin I 0.052 03/01/18 03/02/18 03/02/18 21:00 04:48 04:48 Creatine Kinase 110 CK-MB (CK-2) 1.06 1.05 Troponin I 0.039 0.041 Impressions: Chest/Abdomen CTA 02/22/18 08:04 IMPRESSION: No gross CT angio evidence of acute pulmonary emboli Motion artifact on the study. Question early or developing infiltrates in the bilateral upper lobes. KUB X-Ray 02/22/18 12:57 IMPRESSION: Nasogastric tube tip and side port in the stomach. Interstitial pulmonary edema at the lung base Chest X-Ray 02/28/18 06:00 IMPRESSION: 1. Interval removal of endotracheal tube and NG tube. Otherwise stable appearance of the chest. Assessment & Plan - Diagnosis (1) Altered mental status, unspecified Qualifiers: Altered mental status type: disorientation Qualified Code(s): R41.0 - Disorientation, unspecified Is this a current diagnosis for this admission?: Yes Plan: This is thought to have been due to opioid withdrawal as he is on OxyContin 30 mg p.o. every 12 hours as an outpatient. With the administration of opioid medications his mental status improved. I now have him on oxycodone, a total of 40 mg a day, due to some somnolence I am going to decrease his dose to 30 mg a day. Old parameters have been placed. (2) Chronic pain Is this a current diagnosis for this admission?: Yes Plan: Please see above problem for plan. Chronic pain is under good control now. (3) Chronic, continuous use of opioids Is this a current diagnosis for this admission?: Yes Plan: Patient has chronic back pain secondary to trauma in the past. (4) Acute and chronic respiratory failure Is this a current diagnosis for this admission?: Yes Plan: Multifactorial secondary to COPD and pneumonia. Patient has resolved to his baseline chronic respiratory failure status. (5) Bipolar 1 disorder with moderate jovi Is this a current diagnosis for this admission?: Yes Plan: Patient has improved from a jovi perspective with the addition of Haldol to his regimen. We will continue this as needed for now. (6) COPD exacerbation Is this a current diagnosis for this admission?: Yes Plan: COPD exacerbation has resolved. He is back to his baseline, continue current care. (7) Nicotine dependence Is this a current diagnosis for this admission?: Yes (8) Pneumonia of both upper lobes Qualifiers: Pneumonia type: due to unspecified organism Qualified Code(s): J18.1 - Lobar pneumonia, unspecified organism Is this a current diagnosis for this admission?: Yes Plan: Patient was treated for this problem, antibiotic therapy is completed. Earlier in the hospital course he had acute respiratory failure and was intubated. - Time Time Spent with patient: 15-24 minutes Medications reviewed and adjusted accordingly: Yes Anticipated discharge: Home - Inpatient Certification Based on my medical assessment, after consideration of the patient's comorbidities, presenting symptoms, or acuity I expect that the services needed warrant INPATIENT care.: Yes I certify that my determination is in accordance with my understanding of Medicare's requirements for reasonable and necessary INPATIENT services [42 CFR 412.3e].: Yes Medical Necessity: Need Close Monitoring Due to Risk of Patient Decompensation, Risk of Complication if Not Cared For in Hospital
[2018-03-09] MEDS: THIAMINE HCL 100 MG, FOLIC ACID 1 MG in NORMAL SALINE 250 ML IV SCH (17:12)
[2018-03-09] MEDS ORDERED: OXYCODONE HCL IR 5 MG TABLET PO SCH (18:00)
[2018-03-09] MEDS: NICOTINE 14 MG/24 HR PATCH.TD24 TD PRN (19:35)
[2018-03-09] MEDS: NORMAL SALINE 1000 ML 1,000 ML IV SCH ×2 (20:34→23:54)
[2018-03-09] MEDS ORDERED: LACTULOSE SYRUP 20 GM/30 ML UDCUP PO ONE (21:00)
[2018-03-09] MEDS: OXYCODONE HCL IR 5 MG TABLET PO SCH (23:55)
[2018-03-10] MEDS: OXYCODONE HCL IR 5 MG TABLET PO SCH ×4 (05:17→23:02)
[2018-03-10] MEDS: ALPRAZOLAM 0.5 MG TABLET PO SCH ×3 (05:18→17:33)
[2018-03-10] MEDS: IPRATROPIUM/ALBUTEROL 0.5-2.5 MG/3 ML AMPUL NEB SCH ×3 (09:06→20:46)
[2018-03-10] MEDS: ENOXAPARIN SODIUM INJ 40 MG/0.4 ML DISP.SYRIN SUBCUT SCH (10:24)
[2018-03-10 11:23] LABS: ANION GAP 6 (5-19); BLOOD UREA NITROGEN 13 mg/dL (7-20); CALCIUM 9.2 mg/dL (8.4-10.2); CARBON DIOXIDE 31 mmol/L (22-30); CHLORIDE 103 mmol/L (98-107); GLUCOSE 103 mg/dL (75-110); POTASSIUM 4.2 mmol/L (3.6-5.0); SODIUM 140.4 mmol/L (137-145)
--- NOTE | 2018-03-10 13:11 | PDOC PROGRESS REPORT ---
Subjective Progress Note for:: 03/10/18 Subjective:: Pt is feeling good today. He slept well, no chest pain or shortness of breath, appetite good. He is anxious to leave, agrees to talk to psychiatrist but really wants to leave. He tellsme he is homeless, staying on a friends couch for the next few weeks, then not sure. He says he ran out of his adderal, xanax and oxycontin about a month ago when his doctor retired and that is when he started getting sick. He cannot tell me how he is going to get his presciptions filled now. He is not in touch with any family. 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 Reason For Visit: SEPSIS,ACUTE ON CHRONIC RESPIRATORY FAILURE Physical Exam Vital Signs: Temp Pulse Resp BP Pulse Ox 97.8 F 75 18 93/52 L 96 03/10/18 11:23 03/10/18 11:23 03/10/18 11:23 03/10/18 11:23 03/10/18 11:23 Intake & Output 03/09/18 03/10/18 03/11/18 06:59 06:59 06:59 Intake Total 2278 3414 400 Output Total 2425 1925 200 Balance -147 1489 200 Weight 58.1 kg 61.1 kg General appearance: PRESENT: cooperative, disheveled, mild distress, thin Head exam: PRESENT: atraumatic, normocephalic Eye exam: PRESENT: EOMI. ABSENT: scleral icterus Mouth exam: PRESENT: moist, tongue midline Neck exam: ABSENT: lymphadenopathy Respiratory exam: PRESENT: decreased breath sounds, retraction, unlabored. ABSENT: rales, rhonchi, wheezes Cardiovascular exam: PRESENT: RRR. ABSENT: systolic murmur Pulses: PRESENT: normal radial pulses, normal dorsalis pedis pul GI/Abdominal exam: PRESENT: normal bowel sounds, soft. ABSENT: distended, tenderness Rectal exam: PRESENT: deferred Neurological exam: PRESENT: alert, awake, oriented to person, oriented to place , oriented to situation, CN II-XII grossly intact Psychiatric exam: PRESENT: agitated Skin exam: PRESENT: dry, intact, warm Results Laboratory Results: 03/06/18 05:10 03/10/18 10:42 03/10/18 10:42 Sodium 140.4 Potassium 4.2 Chloride 103 Carbon Dioxide 31 H Anion Gap 6 BUN 13 Creatinine 0.55 Est GFR ( Amer) > 60 Est GFR (Non-Af Amer) > 60 Glucose 103 Calcium 9.2 Magnesium 1.7 03/01/18 03/01/18 03/01/18 13:40 13:40 21:00 Creatine Kinase 249 H 201 H CK-MB (CK-2) 1.07 Troponin I 0.052 03/01/18 03/02/18 03/02/18 21:00 04:48 04:48 Creatine Kinase 110 CK-MB (CK-2) 1.06 1.05 Troponin I 0.039 0.041 Impressions: Chest/Abdomen CTA 02/22/18 08:04 IMPRESSION: No gross CT angio evidence of acute pulmonary emboli Motion artifact on the study. Question early or developing infiltrates in the bilateral upper lobes. KUB X-Ray 02/22/18 12:57 IMPRESSION: Nasogastric tube tip and side port in the stomach. Interstitial pulmonary edema at the lung base Chest X-Ray 02/28/18 06:00 IMPRESSION: 1. Interval removal of endotracheal tube and NG tube. Otherwise stable appearance of the chest. Assessment & Plan - Diagnosis (1) Altered mental status, unspecified Qualifiers: Altered mental status type: disorientation Qualified Code(s): R41.0 - Disorientation, unspecified Is this a current diagnosis for this admission?: Yes Plan: This was recently related to opioid and benzodiazepine withdrawal. This medications have been restarted and his mental status seems to be getting closer to what I imagine is his baseline though we do not know for sure. Last night he developed altered mental status again with hypotension, thought to be related to opioids. Opioid dose was reduced by night hospitalist. Yesterday I had reduced his dose of Xanax as well. (2) Chronic pain Is this a current diagnosis for this admission?: Yes Plan: Several days ago I started the patient on scheduled oxycodone, last total oxycodone then he was receiving as an outpatient. Yesterday he became somnolent and hypotensive and so the night hospitalist decreased his oxycodone dosing. He states he feels comfortable now. His blood pressure is coming back up. (3) Chronic, continuous use of opioids Is this a current diagnosis for this admission?: Yes Plan: This is complicated at this point. Patient is homeless. I do not know who his long-term opioid medications would be prescribed by given that situation. Will ask for assistance from pillowcase cleaner and psychiatrist to see if we can come up with a safe plan for this patient. (4) Acute and chronic respiratory failure Is this a current diagnosis for this admission?: Yes Plan: Patient is back to his baseline. He was admitted with pneumonia and respiratory failure and these things have improved to baseline. (5) Bipolar 1 disorder with moderate jovi Is this a current diagnosis for this admission?: Yes Plan: Patient is somewhat agitated today. He has done well with as needed Haldol and I will continue the current dosing. We will await psychiatry consult for further recommendations. (6) COPD exacerbation Is this a current diagnosis for this admission?: Yes Plan: Stable, back to baseline, continue current care (7) Nicotine dependence Is this a current diagnosis for this admission?: Yes Plan: Continue NicoDerm patch (8) Pneumonia of both upper lobes Qualifiers: Pneumonia type: due to unspecified organism Qualified Code(s): J18.1 - Lobar pneumonia, unspecified organism Is this a current diagnosis for this admission?: Yes Plan: Antibiotic therapy completed - Time Time Spent with patient: 25-34 minutes Medications reviewed and adjusted accordingly: Yes - Inpatient Certification Based on my medical assessment, after consideration of the patient's comorbidities, presenting symptoms, or acuity I expect that the services needed warrant INPATIENT care.: Yes I certify that my determination is in accordance with my understanding of Medicare's requirements for reasonable and necessary INPATIENT services [42 CFR 412.3e].: Yes Medical Necessity: Significant Comorbidiites Make Outpatient Treatment Too Risky , Risk of Complication if Not Cared For in Hospital
--- NOTE | 2018-03-10 14:32 | PSYCHOLOGICAL NOTE ---
Psych Note - Psych Note Psych Note: Reason for Consult: evaluation to treat bipolar Patient was admitted to the hospital on 02/22/2018 and was IVC on 03/04/2018 Clinician was unable to understand the patient when he was speaking, he appeared drowsy and was unable to keep his eyes open. Patient will be re- evaluated medication recommendations per [facility]'s contracted psychiatrist Dr. Jimy COLLADO are as follows 1. Zyprexa 5mg twice daily for acute psychosis 2. Buspar 5mg twice daily for anxiety and agitation 3. Depakote 500mg twice daily for mood stabilization 4. Cogentin 1mg daily for prevention of possible side effects from Zyprexa 5. please discontinue adderall 6. please discontinue Haldol 7. Please discontinue xanax
[2018-03-10] MEDS: HALOPERIDOL LACTATE INJ 5 MG/1 ML VIAL IV PRN (16:04)
[2018-03-10] MEDS: DIVALPROEX SODIUM 500 MG TAB.SR.24H PO SCH (17:35)
[2018-03-10] MEDS ORDERED: BENZTROPINE MESYLATE 1 MG TABLET PO ONE (18:00)
[2018-03-10] MEDS: THIAMINE HCL 100 MG, FOLIC ACID 1 MG in NORMAL SALINE 250 ML IV SCH (18:25)
--- NOTE | 2018-03-10 18:40 | PSYCHOLOGICAL NOTE ---
Psych Note - Psych Note Psych Note: Reason for eval: Homicidal ideation/involuntary commitment Contact permissions: Patient's daughter Kristal Hicks phone #[phone] Patient is a 57-year-old male. Patient reports when he said he was going to "slit throats" he was "doped up". Patient reports his daughter just turned 18 and he wants to get things better so that he could be a good father. Patient stated "I have never been a deadbeat dad". Patient reports he is just being honest and states that he does use drugs. Patient reports he drinks half a gallon of whiskey a day but states that he stopped drinking for a couple months and just smokes weed. Patient reports he is homeless but that is by choice. Patient reports that it took him 2-1/2 months to get an appointment with a pain medication placed in [place] and stated he was upset because it was on the and he missed it. Patient reports he has been angry with the nurses because he felt that they were keeping him here and he missed his appointment and he wants pain medication. Patient reports he promises not to make any threats because he would never actually do any of those things. Patient reports he has never stabbed anyone or hit anyone. Patient reports he just says that when he is mad. Patient reports it hard for him to talk because of his dentures. Patient reports his dentures are falling out. Patient reports mental [facility] has permission to speak to his daughter Kristal Hicks. Patient stated "I am ready to get the fuck out of here". Patient reports he was just angry with not being able to leave. medication recommendations per [facility]'s contracted psychiatrist Dr. Jimy COLLADO are as follows 1. Zyprexa 5mg twice daily for acute psychosis 2. Buspar 5mg twice daily for anxiety and agitation 3. Depakote 500mg twice daily for mood stabilization 4. Cogentin 1mg daily for prevention of possible side effects from Zyprexa 5. please discontinue adderall 6. please discontinue Haldol 7. Please discontinue xanax Diagnosis: 292.9 (F 19.99) unspecified other (or unknown) substance related disorder 293.83 (F06.33) Per History Bipolar Disorder ( current episode hypomanic) Impression/plan: Recommendation to rescind involuntary commitment due to patient not meeting criteria [place] GS 122C. Patient is psychiatrically cleared for discharge. Patient denied homicidal ideation intent and plan. Patient reported his initial threat 13 days ago was due to being "doped up". Medication recommendations were made and previously noted by another clinician however the recommendations are also documented in this note. Clinician observed patient is demonstrating hypomanic behaviors as evidenced by pressured speech however he is able to discuss future plans and cooperate with assessment. Recommendation for patient to follow-up with outpatient provider. Discharge planning can continue and move forward with their process as patient is not under involuntary commitment. Attending hospital is in agreement with plan. Consulted with Dr. Choe regarding management and care of patient.
[2018-03-10] MEDS: OLANZAPINE 5 MG TABLET PO SCH (22:49)
[2018-03-10] MEDS: BUSPIRONE HCL 10 MG TABLET PO SCH (22:49)
[2018-03-10] MEDS: NICOTINE 14 MG/24 HR PATCH.TD24 TD PRN (22:50)
[2018-03-11] MEDS: ALPRAZOLAM 0.5 MG TABLET PO SCH ×2 (03:01→09:55)
[2018-03-11] MEDS: OXYCODONE HCL IR 5 MG TABLET PO SCH ×2 (06:31→11:12)
[2018-03-11] MEDS: IPRATROPIUM/ALBUTEROL 0.5-2.5 MG/3 ML AMPUL NEB SCH (08:37)
[2018-03-11] MEDS: NICOTINE 14 MG/24 HR PATCH.TD24 TD PRN (08:42)
[2018-03-11] MEDS: ENOXAPARIN SODIUM INJ 40 MG/0.4 ML DISP.SYRIN SUBCUT SCH (09:54)
[2018-03-11] MEDS: OLANZAPINE 5 MG TABLET PO SCH (09:55)
[2018-03-11] MEDS: DIVALPROEX SODIUM 500 MG TAB.SR.24H PO SCH (09:55)
[2018-03-11] MEDS: BUSPIRONE HCL 10 MG TABLET PO SCH (09:55)
[2018-03-11 12:28] VITALS: BP 119/65
--- NOTE | 2018-03-11 15:45 | PDOC DISCHARGE SUMMARY ---
General - Admit/Disc Date/PCP Admission Date/Primary Care Provider: 02/22/18 10:42 Discharge Date: 03/11/18 - Discharge Diagnosis (1) Altered mental status, unspecified Is this a current diagnosis for this admission?: Yes Summary: This patient had several episodes of encephalopathy, at one point he was deemed to be suicidal and a threat to himself and so an IVC was placed. Yesterday the IVC was rescinded and he was cleared from a safety perspective by the psychiatry team. At one point he was also thought to be altered secondary to medication withdrawal. It is difficult to tell what medications this patient is on as an outpatient routinely. He has told me that he has been out of his OxyContin for quite some time so I think opioid withdrawal is unlikely. He also tells me that he has not run out of his Xanax and he in fact has another prescription available at the pharmacy so I do not think that he had a benzodiazepine withdrawal. I think it is possible that he has untreated bipolar disorder and that could have been the cause of his outbursts. On the of discharge he is stable from a psychiatric perspective. (2) Chronic pain Is this a current diagnosis for this admission?: Yes Summary: Patient states that he has been on OxyContin 30 mg twice daily plus as needed oxycodone. He also tells me that his doctor retired and so he has not had a prescription and may be a month. Had an appointment at a pain clinic this past and he missed that due to hospitalization and we are trying to help him make a pain clinic appointment prior to discharge. For safety reasons I am not discharging him on opioids. (3) Chronic, continuous use of opioids Is this a current diagnosis for this admission?: Yes Summary: Contrary to accident many years ago. He has chronic back pain. Please see above. (4) Acute and chronic respiratory failure Is this a current diagnosis for this admission?: Yes Summary: Patient was admitted with acute on chronic respiratory failure. Has underlying COPD. He was admitted with bilateral pneumonia and hypoxemic respiratory failure. He was intubated treated and successfully extubated. His pneumonia was completely treated during the hospitalization. He is back to baseline with his COPD. (5) Bipolar 1 disorder with moderate jovi Is this a current diagnosis for this admission?: Yes Summary: He was seen by our psychiatry service several times. He was started on BuSpar 5 mg twice daily, Depakote, Zyprexa twice daily and Cogentin. I prescribed all of these to the pharmacy that he requested we use which was [facility]. (6) COPD exacerbation Is this a current diagnosis for this admission?: Yes Summary: He is back to his baseline and is discharged on his regular home medication regimen for COPD. (7) Nicotine dependence Is this a current diagnosis for this admission?: Yes Summary: Had a NicoDerm patch during the admission. He is not interested in tobacco cessation at this time. (8) Pneumonia of both upper lobes Is this a current diagnosis for this admission?: Yes Summary: Patient completed antibiotic treatment for pneumonia. He grew strep pneumo and Haemophilus influenza from sputum culture. - Additional Information Resuscitation Status: Full Code Discharge Diet: As Tolerated Discharge Activity: Balance Activity w/Rest, No Driving Prescriptions: Albuterol Sulfate [Proair HFA] 2 puff IH Q4HP PRN 30 Days #1 hfa.aer.ad PRN Reason: WHEEZING/SOB Benztropine Mesylate [Cogentin 1 mg Tablet] 1 mg PO QHS 30 Days #30 tablet Buspirone HCl [Buspar 10 mg Tablet] 5 mg PO Q12 30 Days #60 tablet Divalproex Sodium [Depakote ER 500 mg Tab.sr] 500 mg PO BID 30 Days #60 tab.sr.24h Olanzapine [Zyprexa 5 mg Tablet] 5 mg PO Q12 30 Days #60 tablet Home Medications: Diclofenac Sodium [Voltaren] 75 mg PO BIDP PRN 02/22/18 Gabapentin [Neurontin 300 mg Capsule] 600 mg PO Q8HP PRN 02/22/18 Tiotropium Hillman [Spiriva Handihaler 18 mcg/dose (30 Dose)] 1 cap IH DAILY Alprazolam [Xanax] 2 mg PO TID 03/01/18 Albuterol Sulfate [Proair HFA] 2 puff IH Q4HP PRN 30 Days #1 hfa.aer.ad Benztropine Mesylate [Cogentin 1 mg Tablet] 1 mg PO QHS 30 Days #30 tablet 03/11 Buspirone HCl [Buspar 10 mg Tablet] 5 mg PO Q12 30 Days #60 tablet 03/11/18 Divalproex Sodium [Depakote ER 500 mg Tab.sr] 500 mg PO BID 30 Days #60 tab.sr.24h 03/11/18 Olanzapine [Zyprexa 5 mg Tablet] 5 mg PO Q12 30 Days #60 tablet 03/11/18 History of Present Illness Patient complains of: obtunded History of Present Illness: GALI CHURCH JR is a 57 year old male GALI CHURCH JR is a 57 year old male who arrived to emergency room via ambulance. Accordingly patient had been on 4 occasions in ED because of shortness of breath. He had been treated and released. Patient had been staying with friends. Upon arrival of EMS to his home patient was not using his oxygen and was saturating 88% on room air. Patient was then transferred to emergency room. Accordingly on arrival to emergency room patient was saturating 70% on room air heart rate was 140 temperature 99.3 and patient was placed on BiPAP. Patient kept removing his BiPAP as I was told. CTA of the chest showed bilateral pneumonia. My understanding is that patient has stated that tested positive for amphetamines in the past and has a psychiatric history. Our service was consulted for further management. It is not worth it to mention that history gathering had been through ED record as patient basically keeps mumbling Physical Exam Vital Signs: Temp Pulse Resp BP Pulse Ox 97.3 F 62 18 119/65 97 03/11/18 13:00 03/11/18 13:00 03/11/18 13:00 03/11/18 13:00 03/11/18 13:00 Intake & Output 03/10/18 03/11/18 03/12/18 06:59 06:59 06:59 Intake Total 3414 1341 Output Total 1925 875 Balance 1489 466 Weight 61.1 kg 62 kg General appearance: PRESENT: no acute distress, cooperative, disheveled Head exam: PRESENT: atraumatic, normocephalic Eye exam: PRESENT: EOMI. ABSENT: conjunctival injection, scleral icterus Mouth exam: PRESENT: neck supple, tongue midline Teeth exam: PRESENT: edentulous, other - Malfitting dentures Respiratory exam: PRESENT: clear to auscultation nyasia, unlabored. ABSENT: rales , rhonchi, wheezes Cardiovascular exam: PRESENT: RRR. ABSENT: systolic murmur Pulses: PRESENT: normal radial pulses GI/Abdominal exam: PRESENT: normal bowel sounds, soft. ABSENT: distended, firm , tenderness Extremities exam: ABSENT: pedal edema Musculoskeletal exam: PRESENT: ambulatory Neurological exam: PRESENT: alert, awake, oriented to person, oriented to place , oriented to situation, CN II-XII grossly intact Psychiatric exam: PRESENT: appropriate affect. ABSENT: anxious Skin exam: PRESENT: dry, intact, warm Results Laboratory Results: 03/06/18 05:10 03/10/18 10:42 03/01/18 03/01/18 03/01/18 13:40 13:40 21:00 Creatine Kinase 249 H 201 H CK-MB (CK-2) 1.07 Troponin I 0.052 03/01/18 03/02/18 03/02/18 21:00 04:48 04:48 Creatine Kinase 110 CK-MB (CK-2) 1.06 1.05 Troponin I 0.039 0.041 Impressions: Chest/Abdomen CTA 02/22/18 08:04 IMPRESSION: No gross CT angio evidence of acute pulmonary emboli Motion artifact on the study. Question early or developing infiltrates in the bilateral upper lobes. KUB X-Ray 02/22/18 12:57 IMPRESSION: Nasogastric tube tip and side port in the stomach. Interstitial pulmonary edema at the lung base Chest X-Ray 02/28/18 06:00 IMPRESSION: 1. Interval removal of endotracheal tube and NG tube. Otherwise stable appearance of the chest. Qualifiers - * PATIENT BEING DISCHARGED WITH ANY OF THE FOLLOWING DIAGNOSIS: No
[2018-03-11] MEDS ORDERED: BENZTROPINE MESYLATE 1 MG TABLET PO SCH (22:00)
== END 2018-03-11 13:41 | disposition home or self-care (01) | DRG 870 ==
LOC: ER 07:46 → EH 10:42 → ICU 15:15 → 3S 02-28 14:44
PROVIDERS: ADMIT Family Medicine; ATTEND Family Medicine
PROC: 5A1955Z Respiratory Ventilation, Greater than 96 Consecutive Hours (ICD-10-PCS; principal; 2018-02-22)
PROC: 0BH17EZ Insertion of Endotracheal Airway into Trachea, Via Natural or Artificial Opening (ICD-10-PCS; 2018-02-22)
PROC: 5A09357 Assistance with Respiratory Ventilation, Less than 24 Consecutive Hours, Continuous Positive Airway Pressure (ICD-10-PCS; 2018-02-22)
PROC: 3E0F73Z Introduction of Anti-inflammatory into Respiratory Tract, Via Natural or Artificial Opening (ICD-10-PCS; 2018-02-22)
DX: A41.9 Sepsis, unspecified organism (principal); J96.21 Acute and chronic respiratory failure with hypoxia; J18.1 Lobar pneumonia, unspecified organism; R45.851 Suicidal ideations; J44.1 Chronic obstructive pulmonary disease with (acute) exacerbation; J44.0 Chronic obstructive pulmonary disease with (acute) lower respiratory infection; F13.239 Sedative, hypnotic or anxiolytic dependence with withdrawal, unspecified; F11.23 Opioid dependence with withdrawal; Z78.1 Physical restraint status; F06.33 Mood disorder due to known physiological condition with manic features; F31.9 Bipolar disorder, unspecified; G89.29 Other chronic pain; I10 Essential (primary) hypertension; M19.90 Unspecified osteoarthritis, unspecified site; B95.3 Streptococcus pneumoniae as the cause of diseases classified elsewhere; B96.3 Hemophilus influenzae [H. influenzae] as the cause of diseases classified elsewhere; F19.10 Other psychoactive substance abuse, uncomplicated; E83.42 Hypomagnesemia; T42.4X5A Adverse effect of benzodiazepines, initial encounter; T40.2X5A Adverse effect of other opioids, initial encounter; F17.210 Nicotine dependence, cigarettes, uncomplicated; Z59.0 Homelessness; Z79.891 Long term (current) use of opiate analgesic; Z79.899 Other long term (current) drug therapy; Z82.49 Family history of ischemic heart disease and other diseases of the circulatory system
CPT/HCPCS: 31500; 36415; 36600; 70450; 71045; 71275; 74018; 80048; 80053; 80307; 81001; 82550; 82553; 82565; 82803; 82962; 83605; 83735; 83880; 84478; 84484; 85025; 85027; 85610; 85730; 87040; 87070; 87077; 87086; 87186; 87205; 87493; 93005; 93010; 93306; 94002; 94003; 94640; 94660; 94667; 94668; 96365; 96375; 99291; C1751; J0330; J0456; J0515; J0696; J1100; J1160; J1170; J1200; J1630; J1642; J1644; J1650; J2060; J2250; J2270; J2405; J2543; J2704; J2794; J2920; J3360; J3411; J3420; J3475; J3490; J7030; J7050; J7060; J7512; J7620; S0164

== ENCOUNTER 2018-04-17 09:09 | Emergency (ER) | payer MEDICAID ==
--- NOTE | 2018-04-17 09:41 | ER Document Report ---
ED Respiratory Problem - General Chief Complaint: Shortness Of Breath Stated Complaint: SHORTNESS OF BREATH Time Seen by Provider: 04/17/18 09:41 Mode of Arrival: Medic Information source: Patient Notes: 57 yo smoker, no etoh, no drugs male had difficulty breathing last night with coughing. Hx. pneumonia, COPD intubated/sepsis last month, bipolar, ADHD, CAD, no stents, no bypass or angioplasty. Staying with friends- couch surfing. Chills /sweats. Supposed to wear oxygen 24 hours per day, but does not have at the friends house. No problems breathing now. 100% pn 2lpm NC, reduced to 1LPM NC. TRAVEL OUTSIDE OF THE [place] IN LAST 30 DAYS: No - Related Data Allergies/Adverse Reactions: No Known Allergies Allergy (Verified 04/17/18 15:26) Past Medical History - General Information source: Patient - Social History Smoking Status: Current Every Day Smoker Chew tobacco use (# tins/day): No Frequency of alcohol use: None Drug Abuse: None Lives with: Other - see above Family History: CAD, Hyperlipidemia, Hypertension Patient has suicidal ideation: No Patient has homicidal ideation: No - Past Medical History Cardiac Medical History: Reports: Hx Coronary Artery Disease, Hx Hypertension Pulmonary Medical History: Reports: Hx COPD, Hx Respiratory Failure Neurological Medical History: Reports: Hx Seizures - Seizures when drinking states he has not drank in 16 years Renal/ Medical History: Denies: Hx Peritoneal Dialysis Musculoskeltal Medical History: Reports Hx Arthritis, Reports Hx Musculoskeletal Deformity - degenerative disc disease, Reports Hx Musculoskeletal Trauma Psychiatric Medical History: Reports: Hx Bipolar Disorder Traumatic Medical History: Reports: Hx Fractures, Hx Spine Fracture - States "back in 2 places" Infectious Medical History: Denies: Hx Hepatitis Past Surgical History: Reports: None Review of Systems - Review of Systems Constitutional: No symptoms reported EENT: No symptoms reported Cardiovascular: No symptoms reported Respiratory: See HPI Gastrointestinal: No symptoms reported Genitourinary: No symptoms reported Male Genitourinary: No symptoms reported Musculoskeletal: No symptoms reported Skin: No symptoms reported Hematologic/Lymphatic: No symptoms reported Neurological/Psychological: No symptoms reported Physical Exam - Vital signs Vitals: Temp Resp BP Pulse Ox 98.0 F 17 157/87 H 99 04/17/18 09:13 04/17/18 09:13 04/17/18 09:13 04/17/18 09:13 Interpretation: Normal - General General appearance: Appears well, Alert In distress: None - HEENT Head: Normocephalic, Atraumatic Eyes: Normal Conjunctiva: Normal Pupils: PERRL Mucous membranes: Dry Pharynx: Normal Neck: Supple. No: Lymphadenopathy - Respiratory Respiratory status: No respiratory distress Chest status: Nontender Breath sounds: Wheezing - exp bilateral Chest palpation: Normal - Cardiovascular Rhythm: Regular Heart sounds: Normal auscultation Murmur: No - Abdominal Inspection: Normal Distension: No distension Bowel sounds: Normal Tenderness: Nontender Organomegaly: No organomegaly - Back Back: Normal, Nontender - Extremities General upper extremity: Normal inspection, Nontender, Normal color, Normal ROM , Normal temperature General lower extremity: Normal inspection, Nontender, Normal color, Normal ROM , Normal temperature, Normal weight bearing. No: Alina's sign - Neurological Neuro grossly intact: Yes Cognition: Normal Orientation: AAOx4 Onelia Coma Scale Eye Opening: Spontaneous Onelia Coma Scale Verbal: Oriented Onelia Coma Scale Motor: Obeys Commands Onelia Coma Scale Total: 15 Speech: Normal Motor strength normal: LUE, RUE, LLE, RLE Sensory: Normal - Psychological Associated symptoms: Normal affect, Normal mood - Skin Skin Temperature: Warm Skin Moisture: Dry Skin Color: Normal Skin irregularity: negative: Rash Course - Re-evaluation Re-evalutation: 04/17/18 12:37 Patient is breathing a lot better. No wheezing after the treatments. He has eosinophilia which he has not had before and the CBC although the white blood cell count is normal. His chest x-ray is negative showing the COPD. He is able to go to his aunt's house to wear his oxygen. The oxygen level drops to 88 -90 with no oxygen and on 2 L/min his oxygen is 100% 04/17/18 12:[address] Quinn Childers and there is some T-wave inversion in lead II, 3, aVF which was not there EKG 03-01-2018 when he was admitted. Second troponin and another EKG will be drawn at 130. 04/17/18 14:36 2nd torponin is negative. EK,[address] Hunter rec. admission to hospitalist. 04/17/18 14:45 dr schofield said to call dr. spears, dr spears will come see the pt in the ER, may not admit but he understands that he would be doing the discharge since ED providers rec. admission, and dr spears is OK with that. - Vital Signs Vital signs: Temp Pulse Resp BP Pulse Ox 98.0 F 21 H 145/91 H 97 04/17/18 09:13 04/17/18 17:01 04/17/18 17:00 04/17/18 17:01 - Laboratory Result Diagrams: 04/17/18 09:30 04/17/18 09:30 Laboratory results interpreted by me: 04/17/18 04/17/18 09:30 09:30 RBC 4.14 L Hgb 12.3 L Hct 36.7 L RDW 16.6 H Band Neutrophils % 1 L Eosinophils % (Manual) 29 H Absolute Eos (Manual) 1.8 H Carbon Dioxide 31 H AST 14 L ALT 18 L Creatine Kinase 37 L Total Protein 5.6 L Discharge - Discharge Clinical Impression: Cardiomyopathy COPD (chronic obstructive pulmonary disease) Qualifiers: COPD type: emphysema Chronic respiratory failure Qualifiers: Respiratory failure complication: hypoxia Qualified Code(s): J96.11 - Chronic respiratory failure with hypoxia Condition: Fair Disposition: HOME, SELF-CARE Additional Instructions: Wear oxygen as directed continuously. Take medications as directed every day. Referrals: MELONIE WESTBROOK PA-C [Primary Care Provider] - Follow up as needed
[2018-04-17] MEDS ORDERED: ALBUTEROL SULFATE 0.083% NEB 2.5 MG/3 ML AMPUL NEB ONE (09:50)
[2018-04-17] MEDS ORDERED: IPRATROPIUM/ALBUTEROL 0.5-2.5 MG/3 ML AMPUL NEB ONE (09:50)
[2018-04-17] MEDS ORDERED: METHYLPREDNISOLONE INJ 125 MG/2 ML SDV IV ONE (09:51)
[2018-04-17 10:28] LABS: HEMATOCRIT 36.7 % (37.9-51.0); HEMOGLOBIN 12.3 g/dL (13.5-17.0); MEAN CORPUSCULAR HEMOGLOBIN 29.7 pg (27.0-33.4); MEAN CORPUSCULAR HGB CONC 33.6 g/dL (32.0-36.0); MEAN CORPUSCULAR VOLUME 89 fl (80-97); PLATELET COUNT 162 10^3/uL (150-450); RED BLOOD COUNT 4.14 10^6/uL (4.35-5.55); RED CELL DISTRIBUTION WIDTH 16.6 % (11.5-14.0); WHITE BLOOD COUNT 6.2 10^3/uL (4.0-10.5)
--- NOTE | 2018-04-17 10:28 | RADIOLOGY REPORT (SQ) ---
EXAM DESCRIPTION: CHEST 2 VIEWS COMPLETED DATE/TIME: 04/17/2018 10:19 am REASON FOR STUDY: cough COMPARISON: 02/28/2018. NUMBER OF VIEWS: Two view. TECHNIQUE: Frontal and lateral radiographic views of the chest acquired. LIMITATIONS: None. FINDINGS: LUNGS AND PLEURA: No opacities, masses or pneumothorax. No pleural effusion. Attenuated bl ood vessels and flattened lio-diaphragms. MEDIASTINUM AND HILAR STRUCTURES: No masses. No contour abnormalities. HEART AND VASCULAR STRUCTURES: Heart normal in size and contour. No evidence for failure. BONES: No acute findings. HARDWARE: None in the chest. OTHER: No other significant finding. IMPRESSION: COPD. NO ACUTE RADIOGRAPHIC FINDING IN THE CHEST. TECHNICAL DOCUMENTATION: JOB ID: [id number] [employer]- All Rights Reserved Reading location - IP/workstation name: [email or web address]
[2018-04-17 10:44] LABS: BLOOD UREA NITROGEN 7 mg/dL (7-20); CALCIUM 9.1 mg/dL (8.4-10.2); GLUCOSE 91 mg/dL (75-110)
[2018-04-17 10:45] LABS: ALANINE AMINOTRANSFERASE 18 U/L (21-72); ALBUMIN 3.5 g/dL (3.5-5.0); ALKALINE PHOSPHATASE 55 U/L (38-126); ANION GAP 7 (5-19); ASPARTATE AMINO TRANSFERASE 14 U/L (17-59); BILIRUBIN,DIRECT 0.2 mg/dL (0.0-0.4); BILIRUBIN,TOTAL 0.3 mg/dL (0.2-1.3); CARBON DIOXIDE 31 mmol/L (22-30); CHLORIDE 106 mmol/L (98-107); CREATINE KINASE 37 U/L (55-170); POTASSIUM 3.6 mmol/L (3.6-5.0); SODIUM 144.1 mmol/L (137-145); TOTAL PROTEIN 5.6 g/dL (6.3-8.2)
[2018-04-17 10:56] LABS: CREATINE KINASE MB 0.79 ng/mL (<4.55)
[2018-04-17 10:58] LABS: TROPONIN I < 0.012 ng/mL
[2018-04-17] MEDS ORDERED: ASPIRIN 81 MG TABLET, CHEWABLE PO ONE (11:07)
[2018-04-17 11:15] LABS: ABSOLUTE LYMPHOCYTES# (MANUAL) 1.2 10^3/uL (0.5-4.7); ABSOLUTE MONOCYTES # (MANUAL) 0.4 10^3/uL (0.1-1.4); ABSOLUTE NEUTROPHILS# (MANUAL) 2.8 10^3/uL (1.7-8.2); ANISOCYTOSIS SLIGHT; BAND NEUTROPHILS % (MANUAL) 1 % (3-5); BASOPHILS % (MANUAL) 0 % (0-2); EOSINOPHILS % (MANUAL) 29 % (0-6); LYMPHOCYTES % (MANUAL) 19 % (13-45); MONOCYTES % (MANUAL) 7 % (3-13); SEGMENTED NEUTROPHILS % (MAN) 44 % (42-78); TOTAL CELLS COUNTED 100
[2018-04-17 11:19] LABS: PLATELET COMMENT ADEQUATE
--- NOTE | 2018-04-17 15:26 | ER Document Report ---
ED General - General Chief Complaint: Shortness Of Breath Stated Complaint: SHORTNESS OF BREATH Time Seen by Provider: 04/17/18 09:41 Mode of Arrival: Medic TRAVEL OUTSIDE OF THE [place] IN LAST 30 DAYS: No - Related Data Allergies/Adverse Reactions: No Known Allergies Allergy (Verified 02/20/18 23:31) Past Medical History - General Information source: Patient - Social History Smoking Status: Current Every Day Smoker Chew tobacco use (# tins/day): No Frequency of alcohol use: None Drug Abuse: None Family History: CAD, Hyperlipidemia, Hypertension Patient has suicidal ideation: No Patient has homicidal ideation: No - Past Medical History Cardiac Medical History: Reports: Hx Hypertension Denies: Hx Heart Attack - History of, Hx Hypercholesterolemia Pulmonary Medical History: Reports: Hx COPD, Hx Respiratory Failure Neurological Medical History: Reports: Hx Seizures - Seizures when drinking states he has not drank in 16 years Endocrine Medical History: Denies: Hx Diabetes Mellitus Type 1, Hx Diabetes Mellitus Type 2, Hx Hyperthyroidism, Hx Hypothyroidism Renal/ Medical History: Denies: Hx Peritoneal Dialysis GI Medical History: Denies: Hx Cirrhosis, Hx Gastroesophageal Reflux Disease, Hx Hepatitis Musculoskeltal Medical History: Reports Hx Arthritis, Reports Hx Musculoskeletal Deformity - degenerative disc disease, Reports Hx Musculoskeletal Trauma Psychiatric Medical History: Reports: Hx Bipolar Disorder Traumatic Medical History: Reports: Hx Fractures, Hx Spine Fracture - States "back in 2 places" Infectious Medical History: Denies: Hx Hepatitis Physical Exam - Vital signs Vitals: Temp Resp BP Pulse Ox 98.0 F 17 157/87 H 99 04/17/18 09:13 04/17/18 09:13 04/17/18 09:13 04/17/18 09:13 Course - Vital Signs Vital signs: Temp Pulse Resp BP Pulse Ox 98.0 F 20 145/80 H 98 04/17/18 09:13 04/17/18 14:01 04/17/18 14:00 04/17/18 14:01 - Laboratory Result Diagrams: 04/17/18 09:30 04/17/18 09:30 Laboratory results interpreted by me: 04/17/18 04/17/18 09:30 09:30 RBC 4.14 L Hgb 12.3 L Hct 36.7 L RDW 16.6 H Band Neutrophils % 1 L Eosinophils % (Manual) 29 H Absolute Eos (Manual) 1.8 H Carbon Dioxide 31 H AST 14 L ALT 18 L Creatine Kinase 37 L Total Protein 5.6 L Discharge - Discharge Clinical Impression: Cardiomyopathy COPD (chronic obstructive pulmonary disease) Qualifiers: COPD type: emphysema Chronic respiratory failure Qualifiers: Respiratory failure complication: hypoxia Qualified Code(s): J96.11 - Chronic respiratory failure with hypoxia Condition: Fair Disposition: HOME, SELF-CARE Additional Instructions: Wear oxygen as directed continuously. Take medications as directed every day. Referrals: MELONIE WESTBROOK PA-C [Primary Care Provider] - Follow up as needed
--- NOTE | 2018-04-17 15:54 | PDOC CONSULTATION ---
Consultation Consult Date: 04/17/18 Attending physician:: ESTEVAN BAEZ Consult reason:: Short of breath/EKG changes History of Present Illness Admission Date/PCP: MELONIE WESTBROOK PA-C Patient complains of: Short of breath History of Present Illness: GALI CHURCH JR is a 57 year old male with O2 dependent COPD on 2-3 L continuously at home, and ischemic cardiomyopathy with an ejection fraction of 35%. He was recently discharged with a LifeVest that was "thrown away". 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 His sats have been over 90 on room air since admission per ER documentation. Presently is comfortable without complaints. He got an EKG in the emergency department, that was read by them as having flattened T waves. I do not appreciate the changes. Troponins have been negative 2. At no point if she had any complaints of chest pain, arm or jaw symptoms, lightheadedness, diaphoresis, or nausea. Past Medical History Cardiac Medical History: Reports: Hypertension Denies: Myocardial Infarction - History of, Hyperlipidema Pulmonary Medical History: Reports: Chronic Obstructive Pulmonary Disease (COPD) , Respiratory Failure Neurological Medical History: Reports: Seizures - Alcohol withdrawal Endocrine Medical History: Denies: Diabetes Mellitus Type 1, Diabetes Mellitus Type 2, Hyperthyroidism, Hypothyroidism GI Medical History: Denies: Cirrhosis, Gastroesophageal Reflux Disease, Hepatitis Musculoskeltal Medical History: Reports: Arthritis Psychiatric Medical History: Reports: Bipolar Disorder Past Surgical History Past Surgical History: Reports: None Social History Information Source: Patient, [facility] Smoking Status: Current Every Day Smoker Frequency of Alcohol Use: None - Former heavy alcohol user Drugs: Marijuana, Other - History of polysubstance abuse though he states he has not used over a month. Hx Prescription Drug Abuse: Yes - Advance Directive Resuscitation Status: Full Code Family History Family History: CAD, Hyperlipidemia, Hypertension Parental Family History Reviewed: Yes Children Family History Reviewed: No Sibling(s) Family History Reviewed.: No Medication/Allergy Home Medications: Tiotropium Addison [Spiriva Handihaler 18 mcg/dose (30 Dose)] 1 cap IH DAILY Alprazolam [Xanax] 2 mg PO TID 03/01/18 Albuterol Sulfate [Proair HFA] 2 puff IH Q4HP PRN 30 Days #1 hfa.aer.ad Benztropine Mesylate [Cogentin 1 mg Tablet] 1 mg PO QHS 30 Days #30 tablet 03/11 Buspirone HCl [Buspar 10 mg Tablet] 5 mg PO Q12 30 Days #60 tablet 03/11/18 Divalproex Sodium [Depakote ER 500 mg Tab.sr] 500 mg PO BID 30 Days #60 tab.sr.24h 03/11/18 Olanzapine [Zyprexa 5 mg Tablet] 5 mg PO Q12 30 Days #60 tablet 03/11/18 Dextroamphetamine/Amphetamine [Adderall 30 mg Tablet] 30 mg PO NOON 04/17/18 Dextroamphetamine/Amphetamine [Adderall 30 mg Tablet] 60 mg PO QAM 04/17/18 Allergies/Adverse Reactions: No Known Allergies Allergy (Verified 04/17/18 15:26) Review of Systems All systems: reviewed and no additional remarkable complaints except as stated Physical Exam Vital Signs: Temp Pulse Resp BP Pulse Ox 98.0 F 20 145/80 H 98 04/17/18 09:13 04/17/18 14:01 04/17/18 14:00 04/17/18 14:01 Intake & Output 04/16/18 04/17/18 04/18/18 05:59 05:59 05:59 Weight 146 lb 1.605 oz Results Laboratory Results: 04/17/18 09:30 04/17/18 09:30 04/17/18 04/17/18 09:30 09:30 WBC 6.2 RBC 4.14 L Hgb 12.3 L Hct 36.7 L MCV 89 MCH 29.7 MCHC 33.6 RDW 16.6 H Plt Count 162 Seg Neutrophils % Not Reportable Lymphocytes % Not Reportable Monocytes % Not Reportable Eosinophils % Not Reportable Basophils % Not Reportable Absolute Neutrophils Not Reportable Absolute Lymphocytes Not Reportable Absolute Monocytes Not Reportable Absolute Eosinophils Not Reportable Absolute Basophils Not Reportable Sodium 144.1 Potassium 3.6 Chloride 106 Carbon Dioxide 31 H Anion Gap 7 BUN 7 Creatinine 0.68 Est GFR ( Amer) > 60 Est GFR (Non-Af Amer) > 60 Glucose 91 Calcium 9.1 Total Bilirubin 0.3 AST 14 L ALT 18 L Alkaline Phosphatase 55 Total Protein 5.6 L Albumin 3.5 04/17/18 04/17/18 04/17/18 09:30 09:30 13:17 Creatine Kinase 37 L CK-MB (CK-2) 0.79 Troponin I < 0.012 < 0.012 EKG Comments: Unchanged from previous he has LVH with secondary repolarization abnormalities. Impressions: Chest X-Ray 04/17/18 09:41 IMPRESSION: COPD. NO ACUTE RADIOGRAPHIC FINDING IN THE CHEST. Assessment & Plan - Diagnosis (1) Non compliance with medical treatment Is this a current diagnosis for this admission?: Yes Plan: He is instructed to wear his oxygen continuously as previously instructed. And to take all of his medications, every day, as prescribed. (2) COPD (chronic obstructive pulmonary disease) Qualifiers: COPD type: emphysema Is this a current diagnosis for this admission?: Yes (3) Cardiomyopathy Is this a current diagnosis for this admission?: Yes Plan: It is unfortunate that he is LifeVest was "thrown out", but I do not think it is reasonable to ask anyone to pay for another one. There is no evidence of an exacerbation of CHF. Continue home medications as directed. (4) Chronic respiratory failure Qualifiers: Respiratory failure complication: hypoxia Qualified Code(s): J96.11 - Chronic respiratory failure with hypoxia Is this a current diagnosis for this admission?: Yes Plan: Continue oxygen continuously, and other medications as previously prescribed. (5) Bipolar 1 disorder Is this a current diagnosis for this admission?: Yes Plan: Continue home medications.
[2018-04-17 17:18] VITALS: BP 145/91
--- NOTE | 2018-04-17 22:36 | EKG REPORT ---
SEVERITY:- ABNORMAL ECG - SINUS RHYTHM LEFT VENTRICULAR HYPERTROPHY PROLONGED QT INTERVAL : Confirmed by: Blessing Serrano MD 17-Apr-2018 22:35:28
--- NOTE | 2018-04-17 22:36 | EKG REPORT ---
SEVERITY:- ABNORMAL ECG - SINUS RHYTHM LEFT VENTRICULAR HYPERTROPHY LATERAL INFARCT, AGE INDETERMINATE NONSPECIFIC T ABNORMALITIES, INFERIOR LEADS ANTERIOR ST ELEVATION, PROBABLY DUE TO LVH PROLONGED QT INTERVAL : Confirmed by: Blessing Serrano MD 17-Apr-2018 22:35:32
[2018-04-18 11:43] LABS: PATH REVIEW PATHOLOGIST REVIEWED
== END 2018-04-17 17:18 | disposition home or self-care (01) ==
LOC: ER 09:09
DX: I42.9 Cardiomyopathy, unspecified (principal); J44.9 Chronic obstructive pulmonary disease, unspecified; J96.11 Chronic respiratory failure with hypoxia; F17.200 Nicotine dependence, unspecified, uncomplicated; I10 Essential (primary) hypertension; Z99.81 Dependence on supplemental oxygen; F31.9 Bipolar disorder, unspecified
CPT/HCPCS: 93005; 94640; 99285; 96374; 36415; 82553; 82550; 85025; 80053; 84484; 71046; 93010; J2930; J7620

== ENCOUNTER 2018-04-21 23:51 | Inpatient (IN) | payer MEDICAID ==
[2018-04-21] MEDS ORDERED: IPRATROPIUM/ALBUTEROL 0.5-2.5 MG/3 ML AMPUL NEB ONE (23:55)
[2018-04-21] MEDS ORDERED: MAGNESIUM SULFATE/D5W 2 GM/200 ML RTUPB IV ONE (23:55)
--- NOTE | 2018-04-21 23:59 | ER Document Report ---
ED General - General Mode of Arrival: Medic Information source: Patient, Emergency Med Personnel TRAVEL OUTSIDE OF THE [place] IN LAST 30 DAYS: No <KIM HILTON - Last Filed: 04/22/18 01:49> <CHATA HERNANDEZ - Last Filed: 04/22/18 02:12> - General Stated Complaint: BREATHING ISSUES Notes: 57 y.o male with bipolar disorder, ADHD, COPD, Chronic pain and chronic use of opioids presents to the ED via EMS with trouble breathing. EMS reports giving Solumedrol and Albuterol en route. Pt was seen here on February 22 and admitted for COPD exacerbation. (KIM HILTON) - Related Data Allergies/Adverse Reactions: No Known Allergies Allergy (Verified 04/17/18 15:26) Past Medical History - General Information source: Patient - Social History Smoking Status: Current Every Day Smoker Chew tobacco use (# tins/day): No Smoking Education Provided: Yes Frequency of alcohol use: None Lives with: Homeless Family History: CAD, Hyperlipidemia, Hypertension - Past Medical History Cardiac Medical History: Reports: Hx Coronary Artery Disease, Hx Hypertension Denies: Hx Heart Attack - History of, Hx Hypercholesterolemia Pulmonary Medical History: Reports: Hx COPD, Hx Respiratory Failure Neurological Medical History: Reports: Hx Seizures - Seizures when drinking states he has not drank in 16 years Endocrine Medical History: Denies: Hx Diabetes Mellitus Type 1, Hx Diabetes Mellitus Type 2, Hx Hyperthyroidism, Hx Hypothyroidism Renal/ Medical History: Denies: Hx Peritoneal Dialysis GI Medical History: Denies: Hx Cirrhosis, Hx Gastroesophageal Reflux Disease, Hx Hepatitis Musculoskeltal Medical History: Reports Hx Arthritis, Reports Hx Musculoskeletal Deformity - degenerative disc disease, Reports Hx Musculoskeletal Trauma Psychiatric Medical History: Reports: Hx Bipolar Disorder Traumatic Medical History: Reports: Hx Fractures, Hx Spine Fracture - States "back in 2 places" Infectious Medical History: Denies: Hx Hepatitis <KIM HILTON - Last Filed: 04/22/18 01:49> Physical Exam <KIM HILTON - Last Filed: 04/22/18 01:49> <CHATA HERNANDEZ - Last Filed: 04/22/18 02:12> - Vital signs Vitals: Resp BP Pulse Ox 31 H 138/91 H 98 04/21/18 23:51 04/21/18 23:51 04/21/18 23:51 - Notes Notes: Physical Exam: General: Alert, confused. Moderate distress. HEENT: Normocephalic. Atraumatic. PERRL. Extraocular movements intact. Oropharynx clear. Neck: Supple. Non-tender. Respiratory: Moderate distress. Diffuse coarse wheezing throughout. Cardiovascular: Tachycardic rate and regular rhythm. Abdominal: Normal Inspection. Soft, non-tender. No distension. Normal Bowel Sounds. Back: Non-tender. No deformity or step off. Extremities: Moves all four extremities. Upper extremities: Normal inspection. Normal ROM. Lower extremities: Normal inspection. No edema. Normal ROM. Neurological: Normal cognition. Confused. Normal speech. Skin: Warm. Dry. Normal color. (KIM HILTON) Course - Laboratory Result Diagrams: 04/21/18 23:53 04/22/18 00:25 <KIM HILTON - Last Filed: 04/22/18 01:49> - Laboratory Result Diagrams: 04/21/18 23:53 04/22/18 00:25 - Diagnostic Test Radiology reviewed: Reports reviewed <CHATA HERNANDEZ - Last Filed: 04/22/18 02:12> - Re-evaluation Re-evalutation: 04/22/18 00:18 Respiratory status is improving on Bipap. 04/22/18 01:[address] Crain who agrees to admit pt. (KIM HILTON) Patient is a 57-year-old male with a history of COPD who presents with difficulty breathing. Patient's initial oxygen saturation was apparently low 80s for EMS. Patient was given Solu-Medrol and [address] to the emergency department, as well as started on CPAP. Patient was given DuoNeb, magnesium, and placed on BiPAP. His respiratory status is much improved. Small possible pleural effusion on chest x-ray. Otherwise no evidence for pneumonia and patient is afebrile here. He will be admitted to the hospital service for further evaluation of his COPD exacerbation and acute respiratory distress. Patient seems agreeable to this plan. Stable at the time of admission. (CHATA HERNANDEZ) - Vital Signs Vital signs: Temp Pulse Resp BP Pulse Ox 96.8 F L 17 118/78 99 04/22/18 01:10 04/22/18 01:30 04/22/18 01:31 04/22/18 01:31 - Laboratory Laboratory results interpreted by me: 04/21/18 04/21/18 04/22/18 23:53 23:53 00:25 RDW 16.2 H Eosinophils % (Manual) 23 H Absolute Eos (Manual) 1.9 H VBG pH 7.28 L Glucose 170 H AST 14 L Critical Care Note - Critical Care Note Total time excluding time spent on procedures (mins): 40 - Evaluation and management of respiratory distress, management of COPD exacerbation, multiple evaluations, coordination of admission <CHATA HERNANDEZ - Last Filed: 04/22/18 02:12> Discharge <KIM HILTON - Last Filed: 04/22/18 01:49> - [facility] Admitted: Telemetry <CHATA HERNANDEZ - Last Filed: 04/22/18 02:12> - Discharge Clinical Impression: COPD exacerbation, Respiratory distress Condition: Stable Disposition: ADMITTED INPATIENT Scribe Attestation: 04/22/18 02:12 I personally performed the services described in the documentation, reviewed and edited the documentation which was dictated to the scribe in my presence, and it accurately records my words and actions. (CHATA HERNANDEZ) Scribe Documentation - Scribe Written by Ginette:: Ginette Cedeno 04/21/18 [id number] acting as scribe for :: Vianca <KIM HILTON - Last Filed: 04/22/18 01:49>
[2018-04-22] MEDS ORDERED: IPRATROPIUM/ALBUTEROL 0.5-2.5 MG/3 ML AMPUL NEB ONE (00:03)
[2018-04-22 00:05] LABS: VENOUS BLOOD BASE EXCESS -0.6 mmol/L; VENOUS BLOOD HCO3 27.4 mmol/L (20-32); VENOUS BLOOD PCO2 59.6 mmHg (35-63); VENOUS BLOOD PH 7.28 (7.30-7.42)
[2018-04-22] MEDS: MAGNESIUM SULFATE/D5W 1 GM/100 ML RTUPB IV SCH ×2 (00:07→00:24)
[2018-04-22 00:12] LABS: HEMATOCRIT 39.9 % (37.9-51.0); HEMOGLOBIN 13.5 g/dL (13.5-17.0); MEAN CORPUSCULAR HGB CONC 33.8 g/dL (32.0-36.0); MEAN CORPUSCULAR VOLUME 89 fl (80-97); PLATELET COUNT 205 10^3/uL (150-450); RED CELL DISTRIBUTION WIDTH 16.2 % (11.5-14.0); WHITE BLOOD COUNT 8.1 10^3/uL (4.0-10.5)
[2018-04-22 00:15] LABS: INTERNATIONAL RATION (INR) 0.88; PROTHROMBIN TIME 12.4 SEC (11.4-15.4)
[2018-04-22 00:29] LABS: ABSOLUTE LYMPHOCYTES# (MANUAL) 1.1 10^3/uL (0.5-4.7); ABSOLUTE MONOCYTES # (MANUAL) 0.4 10^3/uL (0.1-1.4); ABSOLUTE NEUTROPHILS# (MANUAL) 4.7 10^3/uL (1.7-8.2); BASOPHILS % (MANUAL) 0 % (0-2); EOSINOPHILS % (MANUAL) 23 % (0-6); LYMPHOCYTES % (MANUAL) 14 % (13-45); MONOCYTES % (MANUAL) 5 % (3-13); SEGMENTED NEUTROPHILS % (MAN) 58 % (42-78); TOTAL CELLS COUNTED 100
[2018-04-22 00:37] LABS: PLATELET COMMENT ADEQUATE; RBC MORPHOLOGY COMMENT NORMO-CYTIC/CHROMIC
--- NOTE | 2018-04-22 00:48 | RADIOLOGY REPORT (SQ) ---
EXAM DESCRIPTION: XR CHEST 1 VIEW COMPLETED DATE/TME: 04/21/2018 23:55 CLINICAL HISTORY: 57 years Male, SOB COMPARISON: 4.19.18 NUMBER OF VIEWS/TECHNIQUE: 1/AP FINDINGS: Small obscuration-fusion of the left costophrenic angle. Increased lung volume. No pneumothorax. No acute bone defect. IMPRESSION: Possible small left effusion.
[2018-04-22 01:06] LABS: ALANINE AMINOTRANSFERASE 24 U/L (21-72); ALBUMIN 4.1 g/dL (3.5-5.0); ALKALINE PHOSPHATASE 60 U/L (38-126); ANION GAP 9 (5-19); ASPARTATE AMINO TRANSFERASE 14 U/L (17-59); BILIRUBIN,DIRECT 0.3 mg/dL (0.0-0.4); BILIRUBIN,TOTAL 0.5 mg/dL (0.2-1.3); BLOOD UREA NITROGEN 10 mg/dL (7-20); CALCIUM 9.2 mg/dL (8.4-10.2); CARBON DIOXIDE 29 mmol/L (22-30); CHLORIDE 102 mmol/L (98-107); GLUCOSE 170 mg/dL (75-110); POTASSIUM 4.2 mmol/L (3.6-5.0); SODIUM 139.5 mmol/L (137-145); TOTAL PROTEIN 6.4 g/dL (6.3-8.2)
[2018-04-22 01:19] LABS: APPEARANCE,URINE CLEAR; BILIRUBIN,URINE NEGATIVE (NEGATIVE); COLOR,URINE STRAW; GLUCOSE, URINE NEGATIVE (NEGATIVE); KETONES,URINE NEGATIVE (NEGATIVE); LEUKOCYTE ESTERASE,URINE NEGATIVE (NEGATIVE); NITRITE,URINE NEGATIVE (NEGATIVE); PROTEIN,URINE NEGATIVE (NEGATIVE); URINE SPECIFIC GRAVITY 1.008; UROBILINOGEN,URINE NEGATIVE mg/dL (<2.0)
[2018-04-22] MEDS ORDERED: LEVOFLOXACIN 750 MG/D5W RTU 750 MG/150 ML RTUPB IV ONE (01:29)
[2018-04-22] MEDS ORDERED: HYDRALAZINE HCL INJ/PF 20 MG/1 ML SDV IV PRN (01:32)
[2018-04-22] MEDS ORDERED: CHLORPHENIRAMINE MALEATE 4 MG TABLET PO ONE (01:32)
[2018-04-22] MEDS ORDERED: HYDROCODONE BIT/HOMATROPINE SYRUP 5 ML UDCUP PO PRN (01:32)
[2018-04-22] MEDS ORDERED: IPRATROPIUM/ALBUTEROL 0.5-2.5 MG/3 ML AMPUL NEB PRN (01:33)
[2018-04-22] MEDS ORDERED: GUAIFENESIN SYRP 200 MG/10 ML UDC PO PRN (01:33)
[2018-04-22] MEDS ORDERED: ACETAMINOPHEN 325 MG TABLET PO PRN (01:33)
[2018-04-22] MEDS ORDERED: NORMAL SALINE 1000 ML 1,000 ML IV PRN (01:45)
[2018-04-22] MEDS ORDERED: PREDNISONE 20 MG TABLET PO ONE (02:00)
[2018-04-22] MEDS ORDERED: BENZTROPINE MESYLATE 1 MG TABLET PO ONE (02:00)
[2018-04-22] MEDS ORDERED: OLANZAPINE 5 MG TABLET PO ONE (02:00)
[2018-04-22] MEDS: IPRATROPIUM/ALBUTEROL 0.5-2.5 MG/3 ML AMPUL NEB SCH ×4 (02:06→21:12)
[2018-04-22] MEDS: BENZTROPINE MESYLATE 1 MG TABLET PO SCH (03:30)
[2018-04-22] MEDS ORDERED: CHLORPHENIRAMINE MALEATE 4 MG TABLET ONE (04:21)
[2018-04-22] MEDS ORDERED: FUROSEMIDE INJ/PF 40 MG/4 ML SDV IV ONE (05:15)
[2018-04-22] MEDS ORDERED: POTASSIUM CHLORIDE 10 MEQ TABLET.SA PO ONE (06:00)
[2018-04-22] MEDS: HEPARIN SOD (PORCINE) 5,000 UNIT/ML 1 ML SYRINGE SUBCUT SCH ×3 (06:24→22:03)
--- NOTE | 2018-04-22 06:31 | PDOC H&P ---
History of Present Illness Admission Date/PCP: 04/22/18 01:40 MELONIE WESTBROOK PA-C Patient complains of: Shortness of breath History of Present Illness: GALI CHURCH JR is a 57 year old homeless male with history of congestive heart failure with an ejection fraction of 35%, moderate mitral regurgitation and pulmonary hypertension, COPD with chronic bronchitis, polysubstance and tobacco abuse. Patient presents with shortness of breath and nonproductive cough, denying chest pain, fever, chills, nausea or vomiting. In the emergency room he is diagnosed with COPD exacerbation and congestive heart failure. He receives symptomatic management, empiric antibiotics and referred to the hospitalist for admission. Patient speaks with impediment following loss of mandibular dentition. Past Medical History Cardiac Medical History: Reports: Coronary Artery Disease, Hypertension Denies: Myocardial Infarction - History of, Hyperlipidema Pulmonary Medical History: Reports: Bronchitis, Chronic Obstructive Pulmonary Disease (COPD), Respiratory Failure Neurological Medical History: Reports: Seizures - Seizures when drinking states he has not drank in 16 years Endocrine Medical History: Denies: Diabetes Mellitus Type 1, Diabetes Mellitus Type 2, Hyperthyroidism, Hypothyroidism GI Medical History: Denies: Cirrhosis, Gastroesophageal Reflux Disease, Hepatitis Musculoskeltal Medical History: Reports: Arthritis Psychiatric Medical History: Reports: Attention Deficit Hyperactivity Disorder, Bipolar Disorder, Substance Abuse, Tobacco Dependency Denies: Alcohol Dependency Social History Lives with: Homeless Smoking Status: Current Every Day Smoker Frequency of Alcohol Use: None Drugs: Cocaine, Marijuana, Other - History of polysubstance abuse though he states he has not used over a month. Hx Prescription Drug Abuse: Yes - Advance Directive Resuscitation Status: Full Code Family History Family History: CAD, Hyperlipidemia, Hypertension Parental Family History Reviewed: Yes Children Family History Reviewed: Yes Sibling(s) Family History Reviewed.: Yes Medication/Allergy Home Medications: Tiotropium [place] [Spiriva Handihaler 18 mcg/dose (30 Dose)] 1 cap IH DAILY Alprazolam [Xanax] 2 mg PO TID 03/01/18 Albuterol Sulfate [Proair HFA] 2 puff IH Q4HP PRN 30 Days #1 hfa.aer.ad Benztropine Mesylate [Cogentin 1 mg Tablet] 1 mg PO QHS 30 Days #30 tablet 03/11 Buspirone HCl [Buspar 10 mg Tablet] 5 mg PO Q12 30 Days #60 tablet 03/11/18 Divalproex Sodium [Depakote ER 500 mg Tab.sr] 500 mg PO BID 30 Days #60 tab.sr.24h 03/11/18 Olanzapine [Zyprexa 5 mg Tablet] 5 mg PO Q12 30 Days #60 tablet 03/11/18 Dextroamphetamine/Amphetamine [Adderall 30 mg Tablet] 30 mg PO NOON 04/17/18 Dextroamphetamine/Amphetamine [Adderall 30 mg Tablet] 60 mg PO QAM 04/17/18 Allergies/Adverse Reactions: No Known Allergies Allergy (Verified 04/17/18 15:26) Review of Systems Constitutional: PRESENT: as per HPI, fatigue, weakness. ABSENT: fever(s), headache(s), night sweats Eyes: ABSENT: visual disturbances Ears: ABSENT: hearing changes Cardiovascular: PRESENT: as per HPI, dyspnea on exertion, orthropnea Respiratory: PRESENT: as per HPI, cough, dyspnea. ABSENT: hemoptysis, sputum Gastrointestinal: ABSENT: abdominal pain, constipation, diarrhea, hematemesis, hematochezia, nausea, vomiting Genitourinary: ABSENT: dysuria, hematuria Musculoskeletal: ABSENT: joint swelling Integumentary: ABSENT: rash, wounds Neurological: ABSENT: abnormal gait, abnormal speech, confusion, dizziness, focal weakness, syncope Psychiatric: ABSENT: anxiety, depression, homidical ideation, suicidal ideation Endocrine: ABSENT: cold intolerance, heat intolerance, polydipsia, polyuria Hematologic/Lymphatic: ABSENT: easy bleeding, easy bruising Physical Exam Vital Signs: Temp Pulse Resp BP Pulse Ox 97.7 F 74 18 122/73 100 04/22/18 03:46 04/22/18 03:56 04/22/18 03:46 04/22/18 03:46 04/22/18 03:46 Intake & Output 04/20/18 04/21/18 04/22/18 11:59 11:59 11:59 Intake Total 545 Output Total 200 Balance 345 Weight 60.7 kg General appearance: PRESENT: cooperative, disheveled, mild distress, thin. ABSENT: severe distress Head exam: PRESENT: atraumatic, normocephalic Eye exam: PRESENT: conjunctiva pink, EOMI, PERRLA. ABSENT: scleral icterus Ear exam: PRESENT: normal external ear exam Mouth exam: PRESENT: moist, tongue midline Neck exam: ABSENT: carotid bruit, JVD, lymphadenopathy, thyromegaly Respiratory exam: PRESENT: clear to auscultation nyasia. ABSENT: rales, rhonchi, wheezes Cardiovascular exam: PRESENT: gallop, RRR, tachycardia. ABSENT: diastolic murmur, rubs, systolic murmur Pulses: PRESENT: normal dorsalis pedis pul Vascular exam: PRESENT: normal capillary refill GI/Abdominal exam: PRESENT: normal bowel sounds, soft. ABSENT: distended, guarding, mass, organolmegaly, rebound, tenderness Rectal exam: PRESENT: deferred Extremities exam: PRESENT: full ROM. ABSENT: calf tenderness, clubbing, pedal edema Neurological exam: PRESENT: alert, awake, oriented to person, oriented to place , oriented to time, oriented to situation, CN II-XII grossly intact. ABSENT: motor sensory deficit Psychiatric exam: PRESENT: appropriate affect, normal mood. ABSENT: homicidal ideation, suicidal ideation Skin exam: PRESENT: dry, intact, warm. ABSENT: cyanosis, rash Results Impressions: Chest X-Ray 04/21/18 23:55 IMPRESSION: Possible small left effusion. Assessment & Plan - Diagnosis (1) Congestive heart failure Is this a current diagnosis for this admission?: Yes Plan: Telemetry admission, gentle diuresis, rate control and education (2) COPD exacerbation Is this a current diagnosis for this admission?: Yes Plan: Incentive spirometry, flutter valve, Flonase albuterol and Atrovent (3) Acute and chronic respiratory failure Is this a current diagnosis for this admission?: Yes Plan: Secondary to ongoing tobacco, COPD, pulmonary hypertension. Supplemental oxygen consider ABG (4) Polysubstance abuse Is this a current diagnosis for this admission?: Yes Plan: Supportive care, discharge planning consult - Time Time Spent: 50 to 70 Minutes - Inpatient Certification Medical Necessity: Need Close Monitoring Due to Risk of Patient Decompensation
[2018-04-22] MEDS ORDERED: DILTIAZEM HCL 30 MG TABLET PO ONE (07:00)
--- NOTE | 2018-04-22 07:38 | EKG REPORT ---
SEVERITY:- ABNORMAL ECG - SINUS RHYTHM BIATRIAL ABNORMALITIES LEFT POSTERIOR FASCICULAR BLOCK CONSIDER LEFT VENTRICULAR HYPERTROPHY BORDERLINE PROLONGED QT INTERVAL : Confirmed by: Enrike Sheridan MD 22-Apr-2018 07:37:22
[2018-04-22 08:08] LABS: ABSOLUTE EOSINOPHILS # (AUTO) 0.1 10^3/uL (0.0-0.6); ABSOLUTE LYMPHOCYTES (AUTO) 0.4 10^3/uL (0.5-4.7); ABSOLUTE MONOCYTES (AUTO) 0.1 10^3/uL (0.1-1.4); ABSOLUTE NEUT (AUTO) 4.1 10^3/uL (1.7-8.2); BASOPHILS % (AUTO) 0.1 % (0-2); EOSINOPHILS % (AUTO) 1.4 % (0-6); HEMATOCRIT 42.4 % (37.9-51.0); HEMOGLOBIN 14.4 g/dL (13.5-17.0); LYMPHOCYTES % (AUTO) 8.4 % (13-45); MEAN CORPUSCULAR HEMOGLOBIN 30.4 pg (27.0-33.4); MEAN CORPUSCULAR VOLUME 89 fl (80-97); MONOCYTES % (AUTO) 1.2 % (3-13); PLATELET COUNT 204 10^3/uL (150-450); RED BLOOD COUNT 4.74 10^6/uL (4.35-5.55); RED CELL DISTRIBUTION WIDTH 16.3 % (11.5-14.0); SEGMENTED NEUTROPHILS % (AUTO) 88.9 % (42-78); TOTAL CELLS COUNTED % (AUTO) 100 %; WHITE BLOOD COUNT 4.6 10^3/uL (4.0-10.5)
[2018-04-22] MEDS: BUSPIRONE HCL 10 MG TABLET PO SCH ×2 (09:54→22:03)
[2018-04-22] MEDS: DIVALPROEX SODIUM 500 MG TAB.SR.24H PO SCH ×2 (09:54→17:43)
[2018-04-22] MEDS: TIOTROPIUM BROMIDE DPI 5 CAP/KIT (18 MCG/CAP) IH SCH (09:55)
[2018-04-22] MEDS: OLANZAPINE 5 MG TABLET PO SCH ×2 (09:55→22:03)
[2018-04-22] MEDS: PREDNISONE 20 MG TABLET PO SCH ×2 (09:55→17:43)
[2018-04-22] MEDS: DILTIAZEM HCL 30 MG TABLET PO SCH ×2 (12:38→17:43)
[2018-04-22] MEDS: FUROSEMIDE INJ/PF 40 MG/4 ML SDV IV SCH (17:42)
[2018-04-22] MEDS: POTASSIUM CHLORIDE 10 MEQ TABLET.SA PO SCH (17:42)
--- NOTE | 2018-04-22 17:52 | PDOC PROGRESS REPORT ---
Subjective Progress Note for:: 04/22/18 Subjective:: Patient is seen resting in bed. He is awake, alert and oriented 3. His breathing has improved since admission. He is presently on nasal cannula saturating in mid 90s. He denies any chest pain or dyspnea at rest. He denies any nausea, vomiting or abdominal pain. He denies any fever chills overnight. Denies any significant arthralgias or myalgias. Remaining review of systems are negative. Reason For Visit: COOPD EXACERBATION PNEUMONIA Physical Exam Vital Signs: Temp Pulse Resp BP Pulse Ox 97.9 F 115 H 18 111/77 98 04/22/18 08:39 04/22/18 14:00 04/22/18 08:50 04/22/18 08:39 04/22/18 16:00 Intake & Output 04/21/18 04/22/18 04/23/18 06:59 06:59 06:59 Intake Total 545 Output Total 200 Balance 345 Weight 60.7 kg General appearance: PRESENT: no acute distress, thin, well-developed Head exam: PRESENT: atraumatic, normocephalic Eye exam: PRESENT: conjunctiva pink, EOMI, PERRLA. ABSENT: scleral icterus Ear exam: PRESENT: normal external ear exam Mouth exam: PRESENT: moist, neck supple, tongue midline Teeth exam: PRESENT: poor dentation Neck exam: ABSENT: carotid bruit, JVD, lymphadenopathy, thyromegaly Respiratory exam: PRESENT: crackles, symmetrical, unlabored - Bilateral bases Cardiovascular exam: PRESENT: RRR. ABSENT: diastolic murmur, rubs, systolic murmur Pulses: PRESENT: normal dorsalis pedis pul Vascular exam: PRESENT: normal capillary refill GI/Abdominal exam: PRESENT: normal bowel sounds, soft. ABSENT: distended, guarding, mass, organolmegaly, rebound, tenderness Rectal exam: PRESENT: deferred Extremities exam: PRESENT: full ROM. ABSENT: calf tenderness, clubbing, pedal edema Musculoskeletal exam: PRESENT: ambulatory, full ROM Neurological exam: PRESENT: alert, awake, oriented to person, oriented to place , oriented to time, oriented to situation, CN II-XII grossly intact, other. ABSENT: motor sensory deficit Psychiatric exam: PRESENT: appropriate affect, normal mood. ABSENT: homicidal ideation, suicidal ideation Skin exam: PRESENT: dry, intact, warm. ABSENT: cyanosis, rash Results Laboratory Results: 04/22/18 07:20 04/22/18 07:20 WBC 4.6 RBC 4.74 Hgb 14.4 Hct 42.4 MCV 89 MCH 30.4 MCHC 34.0 RDW 16.3 H Plt Count 204 Seg Neutrophils % 88.9 H Lymphocytes % 8.4 L Monocytes % 1.2 L Eosinophils % 1.4 Basophils % 0.1 Absolute Neutrophils 4.1 Absolute Lymphocytes 0.4 L Absolute Monocytes 0.1 Absolute Eosinophils 0.1 Absolute Basophils 0.0 Impressions: Chest X-Ray 04/21/18 23:55 IMPRESSION: Possible small left effusion. Assessment & Plan - Diagnosis (1) Acute hypoxemic respiratory failure Is this a current diagnosis for this admission?: Yes Plan: Improved with BiPAP, antibiotic therapy and diuresis. (2) COPD exacerbation Is this a current diagnosis for this admission?: Yes Plan: Continue nebulizer, inhalers and antibiotic. (3) Acute on chronic systolic and diastolic heart failure, NYHA class 3 Is this a current diagnosis for this admission?: Yes Plan: Diuresing well. Continue Lasix 40 IV twice daily. Patient on last echo in February of this year, showed an EF of 35% with grade 2/4 diastolic dysfunction. He is presently homeless and noncompliant with any medical therapy. NT BMP this morning was 5600. (4) Bipolar 1 disorder Is this a current diagnosis for this admission?: Yes Plan: Continue current medications. (5) Cardiomyopathy Qualifiers: Cardiomyopathy type: ischemic Qualified Code(s): I25.5 - Ischemic cardiomyopathy Is this a current diagnosis for this admission?: Yes Plan: As above. (6) Nicotine dependence Qualifiers: Nicotine product type: cigarettes Is this a current diagnosis for this admission?: Yes Plan: Counseled. (7) Protein-calorie malnutrition, moderate Is this a current diagnosis for this admission?: Yes Plan: Patient is presently homeless. Will consult dietary for their input. (8) Non compliance with medical treatment Is this a current diagnosis for this admission?: Yes Plan: Counseled. Case management is following. - Time Time Spent with patient: 25-34 minutes Total Critical Time (Minutes): 30 Smoking Cessation Education: 3 to 10 minutes Medications reviewed and adjusted accordingly: Yes
[2018-04-23] MEDS: DILTIAZEM HCL 30 MG TABLET PO SCH ×5 (00:14→23:39)
[2018-04-23] MEDS: IPRATROPIUM/ALBUTEROL 0.5-2.5 MG/3 ML AMPUL NEB SCH ×4 (02:01→20:33)
[2018-04-23] MEDS: POTASSIUM CHLORIDE 10 MEQ TABLET.SA PO SCH ×2 (05:46→18:06)
[2018-04-23] MEDS: HEPARIN SOD (PORCINE) 5,000 UNIT/ML 1 ML SYRINGE SUBCUT SCH ×3 (05:47→21:58)
[2018-04-23] MEDS: FUROSEMIDE INJ/PF 40 MG/4 ML SDV IV SCH ×2 (05:48→18:05)
[2018-04-23 07:03] LABS: ABSOLUTE LYMPHOCYTES (AUTO) 0.7 10^3/uL (0.5-4.7); ABSOLUTE MONOCYTES (AUTO) 0.9 10^3/uL (0.1-1.4); ABSOLUTE NEUT (AUTO) 10.4 10^3/uL (1.7-8.2); BASOPHILS % (AUTO) 0.2 % (0-2); EOSINOPHILS % (AUTO) 0.1 % (0-6); HEMOGLOBIN 13.6 g/dL (13.5-17.0); MEAN CORPUSCULAR HEMOGLOBIN 29.4 pg (27.0-33.4); MEAN CORPUSCULAR HGB CONC 33.2 g/dL (32.0-36.0); MEAN CORPUSCULAR VOLUME 89 fl (80-97); MONOCYTES % (AUTO) 7.7 % (3-13); PLATELET COUNT 213 10^3/uL (150-450); RED BLOOD COUNT 4.63 10^6/uL (4.35-5.55); RED CELL DISTRIBUTION WIDTH 16.9 % (11.5-14.0); TOTAL CELLS COUNTED % (AUTO) 100 %
[2018-04-23 07:21] LABS: WHITE BLOOD COUNT 12.2 10^3/uL (4.0-10.5)
[2018-04-23] MEDS: LEVOFLOXACIN 750 MG/D5W RTU 750 MG/150 ML RTUPB IV SCH (08:29)
[2018-04-23] MEDS: PREDNISONE 20 MG TABLET PO SCH ×2 (11:07→18:06)
[2018-04-23] MEDS: BUSPIRONE HCL 10 MG TABLET PO SCH ×2 (11:07→21:58)
[2018-04-23] MEDS: DIVALPROEX SODIUM 500 MG TAB.SR.24H PO SCH ×2 (11:07→18:05)
[2018-04-23] MEDS: OLANZAPINE 5 MG TABLET PO SCH ×2 (11:07→21:58)
[2018-04-23] MEDS: TIOTROPIUM BROMIDE DPI 5 CAP/KIT (18 MCG/CAP) IH SCH (11:08)
--- NOTE | 2018-04-23 20:38 | PDOC PROGRESS REPORT ---
Subjective Progress Note for:: 04/23/18 Subjective:: GALI CHURCH JR is a 57 y.o. M who presented to the ED on 04/22/2018 for a COPD exacerbation. His PMH includes CHF with EF 35%, mitral regurgitation, pulmonary HTN, COPD, polysubstance abuse, and tobacco use. The patient was seen this morning on rounds, he is resting comfortably in bed on nasal cannula. He denies chest pain, SOB, dyspnea, fever or chills. His lungs are clear to auscultation. The patient does not appear to be in any distress at this time. Reason For Visit: COOPD EXACERBATION PNEUMONIA Physical Exam Vital Signs: Temp Pulse Resp BP Pulse Ox 97.8 F 93 16 126/64 H 97 04/23/18 11:57 04/23/18 19:00 04/23/18 13:50 04/23/18 11:57 04/23/18 13:50 Intake & Output 04/22/18 04/23/18 04/24/18 06:59 06:59 06:59 Intake Total 545 2042 1813 Output Total 200 2750 1375 Balance 345 -708 438 Weight 60.7 kg 61.4 kg General appearance: PRESENT: no acute distress, well-developed Head exam: PRESENT: atraumatic Eye exam: PRESENT: conjunctiva pink, PERRLA Mouth exam: PRESENT: moist Teeth exam: PRESENT: poor dentation Neck exam: PRESENT: full ROM Respiratory exam: PRESENT: clear to auscultation nyasia, symmetrical, unlabored Cardiovascular exam: PRESENT: +S1, +S2 Pulses: PRESENT: normal radial pulses, normal dorsalis pedis pul Vascular exam: PRESENT: normal capillary refill GI/Abdominal exam: PRESENT: soft. ABSENT: distended, tenderness Rectal exam: PRESENT: deferred Extremities exam: PRESENT: full ROM Musculoskeletal exam: PRESENT: ambulatory, full ROM Neurological exam: PRESENT: alert, awake, oriented to person, oriented to place , oriented to time, oriented to situation Psychiatric exam: PRESENT: appropriate affect Skin exam: PRESENT: dry, intact, normal color, warm Results Laboratory Results: 04/23/18 06:27 04/23/18 06:27 WBC 12.2 H D RBC 4.63 Hgb 13.6 Hct 41.0 MCV 89 MCH 29.4 MCHC 33.2 RDW 16.9 H Plt Count 213 Seg Neutrophils % 86.0 H Lymphocytes % 6.0 L Monocytes % 7.7 Eosinophils % 0.1 Basophils % 0.2 Absolute Neutrophils 10.4 H Absolute Lymphocytes 0.7 Absolute Monocytes 0.9 Absolute Eosinophils 0.0 Absolute Basophils 0.0 Impressions: Chest X-Ray 04/21/18 23:55 IMPRESSION: Possible small left effusion. Status: Imported from PACS Assessment & Plan - Diagnosis (1) Acute and chronic respiratory failure Qualifiers: Respiratory failure complication: hypoxia Qualified Code(s): J96.21 - Acute and chronic respiratory failure with hypoxia Is this a current diagnosis for this admission?: Yes Plan: Improved. Secondary to COPD and CHF exacerbation. Initially on BIPAP, weaned to nasal cannula. CXR revealed possible LLL pleural effusion, diuresed with lasix. (2) Acute on chronic systolic and diastolic heart failure, NYHA class 3 Is this a current diagnosis for this admission?: Yes Plan: Improved. Patient appears euvolemic. Previous ECHO in February 2018 reveals EF 35%, grade 2 diastolic dysfunction Continue lasix 40mg BID Continue to trend Pro-BNP Patient is homeless, making it difficult to remain compliant with outpatient medical therapy IV hydralazine for SBP > 170 (3) COPD exacerbation Is this a current diagnosis for this admission?: Yes Plan: History of COPD. Exacerbation stemming from upper respiratory infection. CXR reflects chronic COPD changes Continue supplemental oxygen to maintain SPO2>88%, attempt to wean Continue scheduled nebulizer treatments, spiriva, and empiric antibiotic therapy (4) Bipolar 1 disorder Is this a current diagnosis for this admission?: Yes Plan: History of Bipolar Disorder Continue Buspar and Cogentin and zyprexa (5) Nicotine dependence Qualifiers: Nicotine product type: cigarettes Is this a current diagnosis for this admission?: Yes Plan: Counseled on smoking cessation (6) Homeless Is this a current diagnosis for this admission?: Yes Plan: Patient is currently homeless. Discharge planning aware. Pelon Alcocer RN of [facility] met with patient today to help make living arrangements post-discharge - Time Time Spent with patient: 15-24 minutes Smoking Cessation Education: 3 to 10 minutes Medications reviewed and adjusted accordingly: Yes Anticipated discharge: Home - Inpatient Certification Based on my medical assessment, after consideration of the patient's comorbidities, presenting symptoms, or acuity I expect that the services needed warrant INPATIENT care.: Yes I certify that my determination is in accordance with my understanding of Medicare's requirements for reasonable and necessary INPATIENT services [42 CFR 412.3e].: Yes Medical Necessity: Risk of Complication if Not Cared For in Hospital - Plan Summary Plan Summary: Plan to discharge home once patient is weaned from nasal cannula
[2018-04-23] MEDS: BENZTROPINE MESYLATE 1 MG TABLET PO SCH (21:58)
[2018-04-24] MEDS: IPRATROPIUM/ALBUTEROL 0.5-2.5 MG/3 ML AMPUL NEB SCH ×4 (01:12→20:40)
[2018-04-24 06:26] LABS: ABSOLUTE MONOCYTES (AUTO) 0.7 10^3/uL (0.1-1.4); ABSOLUTE NEUT (AUTO) 9.3 10^3/uL (1.7-8.2); BASOPHILS % (AUTO) 0.2 % (0-2); EOSINOPHILS % (AUTO) 0.1 % (0-6); HEMATOCRIT 41.9 % (37.9-51.0); HEMOGLOBIN 14.3 g/dL (13.5-17.0); LYMPHOCYTES % (AUTO) 8.7 % (13-45); MEAN CORPUSCULAR HEMOGLOBIN 30.3 pg (27.0-33.4); MEAN CORPUSCULAR HGB CONC 34.1 g/dL (32.0-36.0); MEAN CORPUSCULAR VOLUME 89 fl (80-97); MONOCYTES % (AUTO) 6.1 % (3-13); PLATELET COUNT 213 10^3/uL (150-450); RED BLOOD COUNT 4.73 10^6/uL (4.35-5.55); RED CELL DISTRIBUTION WIDTH 16.6 % (11.5-14.0); SEGMENTED NEUTROPHILS % (AUTO) 84.9 % (42-78); TOTAL CELLS COUNTED % (AUTO) 100 %
[2018-04-24] MEDS: POTASSIUM CHLORIDE 10 MEQ TABLET.SA PO SCH ×2 (06:37→17:22)
[2018-04-24] MEDS: FUROSEMIDE INJ/PF 40 MG/4 ML SDV IV SCH ×2 (06:37→17:22)
[2018-04-24] MEDS: HEPARIN SOD (PORCINE) 5,000 UNIT/ML 1 ML SYRINGE SUBCUT SCH ×3 (06:37→22:01)
[2018-04-24] MEDS: DILTIAZEM HCL 30 MG TABLET PO SCH ×3 (06:37→17:21)
[2018-04-24 06:52] LABS: ANION GAP 10 (5-19); BLOOD UREA NITROGEN 27 mg/dL (7-20); CALCIUM 10.2 mg/dL (8.4-10.2); CARBON DIOXIDE 27 mmol/L (22-30); CHLORIDE 103 mmol/L (98-107); GLUCOSE 113 mg/dL (75-110); PHOSPHORUS 4.3 mg/dL (2.5-4.5); POTASSIUM 4.8 mmol/L (3.6-5.0)
[2018-04-24] MEDS: TIOTROPIUM BROMIDE DPI 5 CAP/KIT (18 MCG/CAP) IH SCH (10:25)
[2018-04-24] MEDS: BUSPIRONE HCL 10 MG TABLET PO SCH ×2 (10:26→22:01)
[2018-04-24] MEDS: OLANZAPINE 5 MG TABLET PO SCH ×2 (10:26→22:01)
[2018-04-24] MEDS: LEVOFLOXACIN 750 MG/D5W RTU 750 MG/150 ML RTUPB IV SCH (10:27)
[2018-04-24] MEDS: DIVALPROEX SODIUM 500 MG TAB.SR.24H PO SCH ×2 (10:27→17:21)
[2018-04-24] MEDS: PREDNISONE 20 MG TABLET PO SCH ×2 (10:28→17:20)
--- NOTE | 2018-04-24 21:16 | PDOC PROGRESS REPORT ---
Subjective Progress Note for:: 04/24/18 Subjective:: GALI CHURCH JR is a 57 y.o. M who presented to the ED on 04/22/2018 for a COPD exacerbation. His PMH includes CHF with EF 35%, mitral regurgitation, pulmonary HTN, COPD, polysubstance abuse, and tobacco use. The patient was seen this morning on rounds, he is resting comfortably in bed on nasal cannula. He denies chest pain, SOB, dyspnea, fever or chills. His lungs are clear to auscultation. The patient does not appear to be in any distress at this time. Currently awaiting finalization of his discharge plan. Reason For Visit: COOPD EXACERBATION PNEUMONIA Physical Exam Vital Signs: Temp Pulse Resp BP Pulse Ox 99.2 F 49 L 20 137/79 H 96 04/24/18 19:55 04/24/18 19:55 04/24/18 19:55 04/24/18 19:55 04/24/18 19:55 Intake & Output 04/23/18 04/24/18 04/25/18 06:59 06:59 06:59 Intake Total 2042 2303 2178 Output Total 2750 2075 2250 Balance -708 228 -72 Weight 61.4 kg General appearance: PRESENT: thin Head exam: PRESENT: atraumatic Eye exam: PRESENT: conjunctiva pink, PERRLA Mouth exam: PRESENT: moist Neck exam: PRESENT: full ROM Respiratory exam: PRESENT: clear to auscultation nyasia, symmetrical, unlabored Cardiovascular exam: PRESENT: +S1, +S2 Pulses: PRESENT: normal radial pulses, normal dorsalis pedis pul GI/Abdominal exam: PRESENT: normal bowel sounds, soft. ABSENT: tenderness Rectal exam: PRESENT: deferred Extremities exam: PRESENT: full ROM Musculoskeletal exam: PRESENT: ambulatory, full ROM Neurological exam: PRESENT: alert, awake, oriented to person, oriented to place , oriented to time, oriented to situation Psychiatric exam: PRESENT: appropriate affect Skin exam: PRESENT: dry, intact, warm Results Laboratory Results: 04/24/18 06:07 04/24/18 06:07 04/24/18 04/24/18 06:07 06:07 WBC 11.0 H RBC 4.73 Hgb 14.3 Hct 41.9 MCV 89 MCH 30.3 MCHC 34.1 RDW 16.6 H Plt Count 213 Seg Neutrophils % 84.9 H Lymphocytes % 8.7 L Monocytes % 6.1 Eosinophils % 0.1 Basophils % 0.2 Absolute Neutrophils 9.3 H Absolute Lymphocytes 1.0 Absolute Monocytes 0.7 Absolute Eosinophils 0.0 Absolute Basophils 0.0 Sodium 140.0 Potassium 4.8 Chloride 103 Carbon Dioxide 27 Anion Gap 10 BUN 27 H Creatinine 0.82 Est GFR ( Amer) > 60 Est GFR (Non-Af Amer) > 60 Glucose 113 H Calcium 10.2 Phosphorus 4.3 Magnesium 2.1 04/24/18 06:07 NT-Pro-B Natriuret Pep 602 Impressions: Chest X-Ray 04/21/18 23:55 IMPRESSION: Possible small left effusion. Assessment & Plan - Diagnosis (1) Acute and chronic respiratory failure Qualifiers: Respiratory failure complication: hypoxia Qualified Code(s): J96.21 - Acute and chronic respiratory failure with hypoxia Is this a current diagnosis for this admission?: Yes Plan: Improved. Secondary to COPD and CHF exacerbation. Initially on BIPAP, weaned to nasal cannula. CXR revealed possible LLL pleural effusion, diuresed with lasix. Attempt to wean nasal cannula today (2) Acute on chronic systolic and diastolic heart failure, NYHA class 3 Is this a current diagnosis for this admission?: Yes Plan: Improved. Patient appears euvolemic. Previous ECHO in February 2018 reveals EF 35%, grade 2 diastolic dysfunction Continue lasix 40mg BID Continue to trend Pro-BNP Patient is homeless, making it difficult to remain compliant with outpatient medical therapy IV hydralazine for SBP > 170 (3) COPD exacerbation Is this a current diagnosis for this admission?: Yes Plan: History of COPD. Exacerbation stemming from upper respiratory infection. CXR reflects chronic COPD changes Continue supplemental oxygen to maintain SPO2>88%, attempt to wean Continue scheduled nebulizer treatments, spiriva, and empiric antibiotic therapy (4) Bipolar 1 disorder Is this a current diagnosis for this admission?: Yes Plan: History of Bipolar Disorder Continue Buspar and Cogentin and zyprexa (5) Nicotine dependence Qualifiers: Nicotine product type: cigarettes Is this a current diagnosis for this admission?: Yes Plan: Counseled on smoking cessation (6) Homeless Is this a current diagnosis for this admission?: Yes Plan: Patient is currently homeless. Discharge planning aware. Pelon Alcocer RN of [facility] met with patient yesterday to help make living arrangements post-discharge. Discharge planning has been discussing placement versus discharge home to friend 's house. Awaiting finalized plan. - Time Time Spent with patient: 15-24 minutes Medications reviewed and adjusted accordingly: Yes Anticipated discharge: Home Within: within 48 hours - Inpatient Certification Based on my medical assessment, after consideration of the patient's comorbidities, presenting symptoms, or acuity I expect that the services needed warrant INPATIENT care.: Yes I certify that my determination is in accordance with my understanding of Medicare's requirements for reasonable and necessary INPATIENT services [42 CFR 412.3e].: Yes Medical Necessity: Risk of Complication if Not Cared For in Hospital
[2018-04-24] MEDS: BENZTROPINE MESYLATE 1 MG TABLET PO SCH (22:01)
[2018-04-25] MEDS: DILTIAZEM HCL 30 MG TABLET PO SCH ×3 (00:17→12:57)
[2018-04-25] MEDS: IPRATROPIUM/ALBUTEROL 0.5-2.5 MG/3 ML AMPUL NEB SCH ×2 (02:18→08:20)
[2018-04-25] MEDS: POTASSIUM CHLORIDE 10 MEQ TABLET.SA PO SCH (05:41)
[2018-04-25] MEDS: FUROSEMIDE INJ/PF 40 MG/4 ML SDV IV SCH (05:41)
[2018-04-25] MEDS: HEPARIN SOD (PORCINE) 5,000 UNIT/ML 1 ML SYRINGE SUBCUT SCH (06:00)
[2018-04-25] MEDS ORDERED: LEVOFLOXACIN 750 MG TABLET PO SCH (08:00)
[2018-04-25] MEDS: OLANZAPINE 5 MG TABLET PO SCH (10:13)
[2018-04-25] MEDS: PREDNISONE 20 MG TABLET PO SCH (10:13)
[2018-04-25] MEDS: DIVALPROEX SODIUM 500 MG TAB.SR.24H PO SCH (10:13)
[2018-04-25] MEDS: BUSPIRONE HCL 10 MG TABLET PO SCH (10:14)
[2018-04-25] MEDS: TIOTROPIUM BROMIDE DPI 5 CAP/KIT (18 MCG/CAP) IH SCH (10:15)
[2018-04-25 11:57] VITALS: BP 122/73
--- NOTE | 2018-05-02 11:18 | PDOC DISCHARGE SUMMARY ---
General - Admit/Disc Date/PCP Admission Date/Primary Care Provider: 04/22/18 01:40 MELONIE WESTBROOK PA-C Discharge Date: 04/25/18 - Discharge Diagnosis (1) Acute and chronic respiratory failure Is this a current diagnosis for this admission?: Yes (2) Acute on chronic systolic and diastolic heart failure, NYHA class 3 Is this a current diagnosis for this admission?: Yes (3) COPD exacerbation Is this a current diagnosis for this admission?: Yes (4) Bipolar 1 disorder Is this a current diagnosis for this admission?: Yes (5) Nicotine dependence Is this a current diagnosis for this admission?: Yes (6) Homeless Is this a current diagnosis for this admission?: Yes - Additional Information Resuscitation Status: Full Code Discharge Diet: As Tolerated Discharge Activity: Activity As Tolerated, Balance Activity w/Rest Prescriptions: Levofloxacin [Levaquin 750 mg Tablet] 750 mg PO QAM #2 tablet Metoprolol Succinate 12.5 mg PO DAILY #30 tab.er.24h Prednisone [Deltasone 20 mg Tablet] 20 mg PO BID #13 tablet Home Medications: Albuterol Sulfate [Proair HFA Inhalation Aerosol 8.5 gm MDI] 2 puff IH Q4HP PRN 04/22/18 Alprazolam [Xanax] 2 mg PO TID 04/22/18 Benztropine Mesylate [Cogentin 1 mg Tablet] 1 mg PO QHS 04/22/18 Buspirone HCl [Buspar 10 mg Tablet] 10 mg PO Q12 04/22/18 Dextroamphetamine/Amphetamine [Adderall 30 mg Tablet] 30 mg PO NOON 04/22/18 Dextroamphetamine/Amphetamine [Adderall 30 mg Tablet] 60 mg PO QAM 04/22/18 Divalproex Sodium [Depakote ER 500 mg Tab.sr] 500 mg PO BID 04/22/18 Olanzapine [Zyprexa 5 mg Tablet] 5 mg PO Q12 04/22/18 Tiotropium [place] [Spiriva Handihaler 18 mcg/dose (30 Dose)] 18 mcg IH DAILY Benztropine Mesylate [Cogentin 1 mg Tablet] 1 mg PO QHS tablet 04/25/18 Buspirone HCl [Buspar 10 mg Tablet] 5 mg PO Q12 tablet 04/25/18 Divalproex Sodium [Depakote ER 500 mg Tab.sr] 500 mg PO BID tab.sr.24h Levofloxacin [Levaquin 750 mg Tablet] 750 mg PO QAM #2 tablet 04/25/18 Metoprolol Succinate 12.5 mg PO DAILY #30 tab.er.24h 04/25/18 Olanzapine [Zyprexa 5 mg Tablet] 5 mg PO Q12 tablet 04/25/18 Prednisone [Deltasone 20 mg Tablet] 20 mg PO BID #13 tablet 04/25/18 Tiotropium [place] [Spiriva Handihaler 5 Cap/Kit (18 Mcg/Cap)] 1 cap IH DAILY kit 04/25/18 History of Present Illness History of Present Illness: GALI CHURCH JR is a 57 year old homeless male with history of congestive heart failure with an ejection fraction of 35%, moderate mitral regurgitation and pulmonary hypertension, COPD with chronic bronchitis, polysubstance and tobacco abuse. Patient presents with shortness of breath and nonproductive cough, denying chest pain, fever, chills, nausea or vomiting. In the emergency room he is diagnosed with COPD exacerbation and congestive heart failure. He receives symptomatic management, empiric antibiotics and referred to the hospitalist for admission. Patient speaks with impediment following loss of mandibular dentition. Hospital Course Hospital Course: 57 y.o. homeless male with a history of COPD, CHF, Bipolar disorder, admitted for acute on chronic respiratory failure secondary to COPD and CHF exacerbation. CXR revealed possible LLL pleural effusion and chronic COPD changes. BNP 5600. Initially required BIPAP. The patient was diuresed with lasix and able to wean from BIPAP within 24 hours. COPD exacerbation was treated with scheduled nebulizer treatments, spiriva, and empiric antibiotic therapy. Recent ECHOcardiogram from February 2018 reveals EF 35% and grade 2 diastolic dysfunction. Patient is homeless, making it difficult to remain compliant with outpatient medical therapy. After 3 days in the hospital, the patient was able to wean from supplemental oxygen. He was discharged with prescriptions for a 5 day steroid taper, a few days of antibiotics, and low dose metoprolol to control his blood pressure. Pelon Alcocer RN of [facility] met with patient to help make living arrangements post-discharge. Discharge planning made arrangements for the patient to go to a [facility], but the patient was not willing to relinquish his government assistance check to the facility, so the patient was discharged to his friend's house. In the mean time, Mr. Alcocer continues to work with the patient to find a more permanent arrangement. Physical Exam Vital Signs: Temp Pulse Resp BP Pulse Ox 98.1 F 72 16 122/73 96 04/25/18 11:53 04/25/18 11:53 04/25/18 11:53 04/25/18 11:53 04/25/18 11:53 Results Laboratory Results: 04/24/18 06:07 04/24/18 06:07 04/24/18 06:07 NT-Pro-B Natriuret Pep 602 Impressions: Chest X-Ray 04/21/18 23:55 IMPRESSION: Possible small left effusion. Status: Imported from PACS Qualifiers - * PATIENT BEING DISCHARGED WITH ANY OF THE FOLLOWING DIAGNOSIS: No
== END 2018-04-25 14:15 | disposition home or self-care (01) | DRG 291 ==
LOC: ER 23:51 → EH 04-22 01:40 → 3S 04-22 03:40
PROVIDERS: ADMIT Internal Medicine; ATTEND Internal Medicine
DX: I11.0 Hypertensive heart disease with heart failure (principal); J96.21 Acute and chronic respiratory failure with hypoxia; J44.1 Chronic obstructive pulmonary disease with (acute) exacerbation; E44.0 Moderate protein-calorie malnutrition; Z68.1 Body mass index [BMI] 19.9 or less, adult; I50.43 Acute on chronic combined systolic (congestive) and diastolic (congestive) heart failure; Z59.0 Homelessness; I34.0 Nonrheumatic mitral (valve) insufficiency; I27.20 Pulmonary hypertension, unspecified; I25.10 Atherosclerotic heart disease of native coronary artery without angina pectoris; E78.5 Hyperlipidemia, unspecified; F17.210 Nicotine dependence, cigarettes, uncomplicated; I25.5 Ischemic cardiomyopathy; F90.9 Attention-deficit hyperactivity disorder, unspecified type; F31.9 Bipolar disorder, unspecified; F17.200 Nicotine dependence, unspecified, uncomplicated; Z82.49 Family history of ischemic heart disease and other diseases of the circulatory system; Z79.899 Other long term (current) drug therapy; Z91.19 Patient's noncompliance with other medical treatment and regimen
CPT/HCPCS: 36415; 71045; 80048; 80053; 81001; 82803; 82962; 83605; 83735; 83880; 84100; 84484; 85025; 85610; 87040; 87086; 93005; 93010; 94640; 94660; 94667; 94668; 94799; 96365; 99291; J1644; J1940; J1956; J3475; J3490; J7030; J7512; J7620

== ENCOUNTER 2018-05-29 08:27 | Emergency (ER) | payer MEDICAID ==
[2018-05-29 08:52] LABS: ABSOLUTE EOSINOPHILS # (AUTO) 0.4 10^3/uL (0.0-0.6); ABSOLUTE LYMPHOCYTES (AUTO) 1.5 10^3/uL (0.5-4.7); ABSOLUTE MONOCYTES (AUTO) 0.5 10^3/uL (0.1-1.4); ABSOLUTE NEUT (AUTO) 2.5 10^3/uL (1.7-8.2); BASOPHILS % (AUTO) 0.1 % (0-2); EOSINOPHILS % (AUTO) 8.8 % (0-6); HEMOGLOBIN 13.8 g/dL (13.5-17.0); LYMPHOCYTES % (AUTO) 30.4 % (13-45); MEAN CORPUSCULAR HEMOGLOBIN 30.3 pg (27.0-33.4); MEAN CORPUSCULAR HGB CONC 33.7 g/dL (32.0-36.0); MEAN CORPUSCULAR VOLUME 90 fl (80-97); MONOCYTES % (AUTO) 10.4 % (3-13); PLATELET COUNT 224 10^3/uL (150-450); RED BLOOD COUNT 4.57 10^6/uL (4.35-5.55); SEGMENTED NEUTROPHILS % (AUTO) 50.3 % (42-78); TOTAL CELLS COUNTED % (AUTO) 100 %; WHITE BLOOD COUNT 5.1 10^3/uL (4.0-10.5)
[2018-05-29] MEDS ORDERED: ALBUTEROL SULFATE 0.083% NEB 2.5 MG/3 ML AMPUL NEB ONE ×2 (08:59→10:39)
[2018-05-29] MEDS ORDERED: CEFTRIAXONE INJ 1000 MG VIAL IV ONE (09:02)
[2018-05-29 09:05] LABS: VENOUS BLOOD BASE EXCESS 2.2 mmol/L; VENOUS BLOOD PCO2 59.2 mmHg (35-63); VENOUS BLOOD PH 7.32 (7.30-7.42)
--- NOTE | 2018-05-29 09:05 | RADIOLOGY REPORT (SQ) ---
EXAM DESCRIPTION: CHEST SINGLE VIEW COMPLETED DATE/TIME: 05/29/2018 8:53 am REASON FOR STUDY: bed 18 db COMPARISON: CT angio chest 02/22/2018 Chest films 02/16/2018, 02/27/2018, 02/28/2018, 04/17/2018, 04/22/2018 EXAM PARAMETERS: NUMBER OF VIEWS: One view. TECHNIQUE: Single frontal radiographic view of the chest acquired. RADIATION DOSE: NA LIMITATIONS: None. FINDINGS: LUNGS AND PLEURA: No opacities, masses or pneumothorax. No pleural effusion. MEDIASTINUM AND HILAR STRUCTURES: No masses. Contour normal. HEART AND VASCULAR STRUCTURES: Heart normal in size. Normal vasculature. BONES: No acute findings. HARDWARE: None in the chest. OTHER: No other significant finding. IMPRESSION: NO ACUTE RADIOGRAPHIC FINDING IN THE CHEST. TECHNICAL DOCUMENTATION: JOB ID: [id number] [employer]- All Rights Reserved Reading location - IP/workstation name: [email or web address]
[2018-05-29 09:15] LABS: ALANINE AMINOTRANSFERASE 14 U/L (21-72); ALBUMIN 4.1 g/dL (3.5-5.0); ALKALINE PHOSPHATASE 58 U/L (38-126); ANION GAP 13 (5-19); ASPARTATE AMINO TRANSFERASE 16 U/L (17-59); BILIRUBIN,DIRECT 0.2 mg/dL (0.0-0.4); BILIRUBIN,TOTAL 0.4 mg/dL (0.2-1.3); BLOOD UREA NITROGEN 13 mg/dL (7-20); CALCIUM 9.5 mg/dL (8.4-10.2); CARBON DIOXIDE 28 mmol/L (22-30); CHLORIDE 105 mmol/L (98-107); CREATINE KINASE 51 U/L (55-170); GLUCOSE 91 mg/dL (75-110); POTASSIUM 4.4 mmol/L (3.6-5.0); SODIUM 145.7 mmol/L (137-145); TOTAL PROTEIN 6.6 g/dL (6.3-8.2)
--- NOTE | 2018-05-29 09:20 | EKG REPORT ---
SEVERITY:- ABNORMAL ECG - SINUS RHYTHM LVH WITH SECONDARY REPOLARIZATION ABNORMALITY : Confirmed by: Ivan Oseguera 29-May-2018 09:19:47
[2018-05-29 09:26] LABS: CREATINE KINASE MB 1.23 ng/mL (<4.55); TROPONIN I 0.015 ng/mL
[2018-05-29] MEDS ORDERED: PREDNISONE 20 MG TABLET PO ONE (12:42)
[2018-05-29] MEDS ORDERED: DOXYCYCLINE HYCLATE 100 MG TABLET PO ONE (12:42)
[2018-05-29] MEDS ORDERED: ALBUTEROL SULFATE HFA (90 MCG/PUFF) 8 GM MDI (1 MDI/ER DISP) IH ONE (12:42)
--- NOTE | 2018-05-29 13:02 | ER Document Report ---
ED Respiratory Problem - General Chief Complaint: Shortness Of Breath Stated Complaint: WEAKNESS Time Seen by Provider: 05/29/18 08:44 Mode of Arrival: Ambulatory Information source: Patient Notes: Patient presents complaining of difficulty breathing for the past 3 days. Patient states that he has had a productive cough with green sputum. Patient has a history of COPD and was given nebulizer treatment and steroids per EMS. Patient states that he is breathing much easier after the nebulizer treatments. Pt denies any chest pain, abdominal pain or back pain. Patient denies any fever. TRAVEL OUTSIDE OF THE [place] IN LAST 30 DAYS: No - HPI Patient complains to provider of: COPD, Cough, Short of breath Onset: Other - 3 days Duration: Better Quality of pain: No pain Pain Level: Denies Context: Hx CHF, Hx COPD, Smoker. denies: Recent immobilization, Recent surgery Sputum amount: Moderate Sputum color: Green EMS treatments: Bronchodilators, Solumedrol Associated symptoms: Cough, Wheezing. denies: Bloody cough, Chest pain/ discomfort, Fever Similar symptoms previously: Yes Recently seen / treated by doctor: No - Related Data Allergies/Adverse Reactions: No Known Allergies Allergy (Verified 05/29/18 11:11) Past Medical History - General Information source: Patient - Social History Smoking Status: Current Every Day Smoker Smoking Education Provided: Yes Frequency of alcohol use: None Drug Abuse: None Occupation: none Lives with: Friend Family History: CAD, Hyperlipidemia, Hypertension Patient has suicidal ideation: No Patient has homicidal ideation: No - Past Medical History Cardiac Medical History: Reports: Hx Congestive Heart Failure, Hx Coronary Artery Disease, Hx Heart Attack - History of, Hx Hypertension Denies: Hx Hypercholesterolemia Pulmonary Medical History: Reports: Hx Bronchitis, Hx COPD, Hx Respiratory Failure Neurological Medical History: Reports: Hx Seizures - Seizures when drinking states he has not drank in 16 years Endocrine Medical History: Denies: Hx Diabetes Mellitus Type 1, Hx Diabetes Mellitus Type 2, Hx Hyperthyroidism, Hx Hypothyroidism Renal/ Medical History: Denies: Hx Peritoneal Dialysis GI Medical History: Denies: Hx Cirrhosis, Hx Gastroesophageal Reflux Disease, Hx Hepatitis Musculoskeletal Medical History: Reports Hx Arthritis, Reports Hx Musculoskeletal Deformity - degenerative disc disease, Reports Hx Musculoskeletal Trauma Psychiatric Medical History: Reports: Hx Attention Deficit Hyperactivity Disorder, Hx Bipolar Disorder Traumatic Medical History: Reports: Hx Fractures, Hx Spine Fracture - States "back in 2 places" Infectious Medical History: Denies: Hx Hepatitis Surgical Hx: Negative Review of Systems - Review of Systems Constitutional: No symptoms reported. denies: Fever, Recent illness EENT: No symptoms reported Cardiovascular: Dyspnea. denies: Chest pain Respiratory: Cough, Short of breath, Sputum, Wheezing. denies: Hurts to breathe Gastrointestinal: No symptoms reported. denies: Abdominal pain, Nausea, Vomiting Genitourinary: No symptoms reported Male Genitourinary: No symptoms reported Musculoskeletal: No symptoms reported. denies: Back pain Skin: No symptoms reported Hematologic/Lymphatic: No symptoms reported Neurological/Psychological: No symptoms reported Physical Exam - Vital signs Vitals: Resp BP 13 153/82 H 05/29/18 08:30 05/29/18 08:30 - General General appearance: Appears well, Alert In distress: None - HEENT Head: Normocephalic, Atraumatic Eyes: Normal Conjunctiva: Normal Nasal: Normal Mucous membranes: Normal Neck: Normal, Supple. No: Lymphadenopathy Notes: slight speech impediment - Respiratory Respiratory status: No respiratory distress Chest status: Nontender Breath sounds: Nonproductive cough, Rhonchi, Wheezing Chest palpation: Normal - Cardiovascular Rhythm: Regular. No: Tachycardia Heart sounds: S1 appreciated, S2 appreciated Murmur: No - Abdominal Inspection: Normal Distension: No distension Bowel sounds: Normal Tenderness: Nontender Organomegaly: No organomegaly - Back Back: Normal, Nontender - Extremities General upper extremity: Normal inspection, Normal strength. No: Edema General lower extremity: Normal inspection, Normal strength. No: Edema - Neurological Neuro grossly intact: Yes Cognition: Normal [place] Coma Scale Eye Opening: Spontaneous [place] Coma Scale Verbal: Oriented [place] Coma Scale Motor: Obeys Commands [place] Coma Scale Total: 15 - Psychological Associated symptoms: Normal affect, Normal mood - Skin Skin Temperature: Warm Skin Moisture: Dry Skin Color: Normal Course - Re-evaluation Re-evalutation: 05/29/18 10:30 Patient with scattered wheezing, respirations unlabored. No tachycardia. No hypoxia. Vital signs otherwise stable. Will order additional nebulizer treatment at this time. 05/29/18 12:35 Patient sleeping, arouses easily to voice. Patient states he is feeling much better after breathing treatments. Patient nontoxic in appearance. Chest x- ray reviewed, no concern for failure or pneumonia at this time. Patient educated on importance of smoking cessation. Patient without any chest pain abdominal pain or back pain symptoms. Consulted with Dr. Fuller who advises treating patient for COPD exacerbation, giving patient dose of prednisone here as well as an inhaler and given him prescriptions for each as well. Patient is agreeable with this discharge plan of care. - Vital Signs Vital signs: Temp Pulse Resp BP Pulse Ox 14 138/72 H 94 05/29/18 13:01 05/29/18 13:00 05/29/18 13:01 - Laboratory Result Diagrams: 05/29/18 08:32 05/29/18 08:32 Laboratory results interpreted by me: 05/29/18 05/29/18 05/29/18 08:32 08:32 08:32 RDW 16.0 H Eosinophils % 8.8 H Sodium 145.7 H AST 16 L ALT 14 L Creatine Kinase 51 L NT-Pro-B Natriuret Pep 3140 H 05/29/18 13:00 Labs- Entire Visit 05/29/18 05/29/18 05/29/18 08:32 08:32 08:32 WBC 5.1 RBC 4.57 Hgb 13.8 Hct 41.0 MCV 90 MCH 30.3 MCHC 33.7 RDW 16.0 H Plt Count 224 Seg Neutrophils % 50.3 Lymphocytes % 30.4 Monocytes % 10.4 Eosinophils % 8.8 H Basophils % 0.1 Absolute Neutrophils 2.5 Absolute Lymphocytes 1.5 Absolute Monocytes 0.5 Absolute Eosinophils 0.4 Absolute Basophils 0.0 VBG pH VBG pCO2 VBG HCO3 VBG Base Excess Sodium 145.7 H Potassium 4.4 Chloride 105 Carbon Dioxide 28 Anion Gap 13 BUN 13 Creatinine 0.83 Est GFR ( Amer) > 60 Est GFR (Non-Af Amer) > 60 Glucose 91 Calcium 9.5 Magnesium Total Bilirubin 0.4 Direct Bilirubin 0.2 Neonat Total Bilirubin Not Reportable Neonat Direct Bilirubin Not Reportable Neonat Indirect Bili Not Reportable AST 16 L ALT 14 L Alkaline Phosphatase 58 Creatine Kinase 51 L CK-MB (CK-2) 1.23 Troponin I 0.015 NT-Pro-B Natriuret Pep Total Protein 6.6 Albumin 4.1 05/29/18 05/29/18 05/29/18 08:32 08:32 08:32 WBC RBC Hgb Hct MCV MCH MCHC RDW Plt Count Seg Neutrophils % Lymphocytes % Monocytes % Eosinophils % Basophils % Absolute Neutrophils Absolute Lymphocytes Absolute Monocytes Absolute Eosinophils Absolute Basophils VBG pH 7.32 VBG pCO2 59.2 VBG HCO3 30.0 VBG Base Excess 2.2 Sodium Potassium Chloride Carbon Dioxide Anion Gap BUN Creatinine Est GFR ( Amer) Est GFR (Non-Af Amer) Glucose Calcium Magnesium 2.0 Total Bilirubin Direct Bilirubin Neonat Total Bilirubin Neonat Direct Bilirubin Neonat Indirect Bili AST ALT Alkaline Phosphatase Creatine Kinase CK-MB (CK-2) Troponin I NT-Pro-B Natriuret Pep 3140 H Total Protein Albumin - Diagnostic Test Radiology reviewed: Reports reviewed Discharge - Discharge Clinical Impression: COPD exacerbation, Tobacco abuse Condition: Stable Disposition: HOME, SELF-CARE Instructions: Chronic Obstructive Lung Disease ([facility]), Doxycycline ([facility]) Additional Instructions: Return immediately for any new or worsening symptoms Followup with your primary care provider, call tomorrow to make a followup appointment Stop smoking INHALED BRONCHODILATORS: You have received a treatment of and/or prescription for an inhaled bronchodilator -- a medication which stimulates the airways in the lung to dilate. This improves the flow of air in asthma, bronchitis, and emphysema. These medicines have some similarity to adrenaline, and can cause similar side effects: shakiness, racing heart, and a sense of nervousness. These side effects decrease with time. Contact your doctor if these side effects are severe. Do not over-use the medicine. Too-frequent use of the inhaler may make it ineffective. Call your doctor if the inhaler is not controlling your symptoms at the prescribed doses. STEROID MEDICATION: You have been given an injection of or oral medicine of the cortisone/ steroid class. This medication is used to control inflammation or allergy. Caleb t is usually only given for a short period of time, until the acute process subsides. There are usually no side effects from short-term use of cortisone-like medications. Some persons feel an increased sense of well-being and are not sleepy at bedtime. Long-term use of cortisone medications is best avoided, unless required for a severe condition. If your condition does not remit, or relapses after the course of corticosteroid medication, you should consult your physician. USE OF ACETAMINOPHEN (Tylenol): Acetaminophen may be taken for pain relief or fever control. It's much safer than aspirin, offering a wider range of "safe" dosages. It is safe during . Some brand names are Tylenol, Panadol, Datril, Anacin 3, Tempra, and Liquiprin. Acetaminophen can be repeated every four hours. The following are maximum recommended dosages: >89 pounds or adults 650 mg to 900 mg Acetaminophen can be repeated every four hours. Maximum dose not to exceed 4000 mg a day. SMOKING: If you smoke, you should stop smoking. The tar and chemicals in cigarette smoke are harmful. Smoking has been shown to cause: emphysema chronic bronchitis lung cancer mouth and throat cancer stomach and pancreas cancer premature aging defects In addition, smoking increases ear and lung infections in children of smokers. FOLLOW-UP CARE: If you have been referred to a physician for follow-up care, call the physician s office for an appointment as you were instructed or within the next two days. If you experience worsening or a significant change in your symptoms, notify the physician immediately or return to the Emergency Department at any time for re-evaluation. Prescriptions: Albuterol Sulfate [Ventolin Hfa] 2 puff IH Q4HP PRN #17 gm PRN Reason: Doxycycline Hyclate 100 mg PO BID #20 capsule Prednisone [Deltasone 10 mg Tablet] 10 mg PO ASDIR PRN #21 tablet PRN Reason: Forms: Smoking Cessation Education Referrals: TIERA CHURCH MD [ACTIVE STAFF] - Follow up tomorrow
[2018-05-29 13:10] VITALS: BP 138/72
== END 2018-05-29 13:24 | disposition home or self-care (01) ==
LOC: ER 08:27
DX: J44.1 Chronic obstructive pulmonary disease with (acute) exacerbation (principal); R53.1 Weakness; F17.210 Nicotine dependence, cigarettes, uncomplicated; I50.9 Heart failure, unspecified; I11.0 Hypertensive heart disease with heart failure; I25.10 Atherosclerotic heart disease of native coronary artery without angina pectoris; I25.2 Old myocardial infarction
CPT/HCPCS: 93005; 94640 ×2; 99285; 96365; 36415; 82553; 82550; 83735; 85025; 80053; 84484; 82803; 83880; 71045; 93010; J3490 ×2; J7512; J0696

== ENCOUNTER 2018-06-03 03:28 | Inpatient (IN) | payer MEDICAID ==
[2018-06-03] MEDS ORDERED: ALBUTEROL SULFATE 0.083% NEB 2.5 MG/3 ML AMPUL NEB ONE (03:30)
--- NOTE | 2018-06-03 03:32 | ER Document Report ---
ED Respiratory Problem - General Chief Complaint: Shortness Of Breath Stated Complaint: RESPIRATORY DISTRESS Time Seen by Provider: 06/03/18 03:29 Information source: Emergency Med Personnel Cannot obtain history due to: Unstable vital signs Notes: The patient is a 57-year-old male, past medical history congestive heart failure with an ejection fraction of 35%, moderate mitral regurgitation and pulmonary hypertension, COPD with chronic bronchitis, polysubstance and tobacco abuse, presents with increasing shortness of breath over the past night. He is frequently in the ER and admitted to the hospital for shortness of breath due to noncompliance issues. EMS found him satting 70% on room air. He was started on CPAP by EMS and given 3 duonebs, 125 mg Solu-Medrol, 0.3 mg IM Epi, Nitro paste and 2 grams of magnesium with improvement of his shortness of breath and hypoxia. Patient does not provide much additional history. TRAVEL OUTSIDE OF THE [place] IN LAST 30 DAYS: No - Related Data Allergies/Adverse Reactions: No Known Allergies Allergy (Verified 05/29/18 11:11) Past Medical History - General Information source: Patient - Social History Smoking Status: Current Every Day Smoker Family History: CAD, Hyperlipidemia, Hypertension - Past Medical History Cardiac Medical History: Reports: Hx Congestive Heart Failure, Hx Coronary Artery Disease, Hx Heart Attack - History of, Hx Hypertension Denies: Hx Hypercholesterolemia Pulmonary Medical History: Reports: Hx Bronchitis, Hx COPD, Hx Respiratory Failure Neurological Medical History: Reports: Hx Seizures - Seizures when drinking states he has not drank in 16 years Endocrine Medical History: Denies: Hx Diabetes Mellitus Type 1, Hx Diabetes Mellitus Type 2, Hx Hyperthyroidism, Hx Hypothyroidism Renal/ Medical History: Denies: Hx Peritoneal Dialysis GI Medical History: Denies: Hx Cirrhosis, Hx Gastroesophageal Reflux Disease, Hx Hepatitis Musculoskeletal Medical History: Reports Hx Arthritis, Reports Hx Musculoskeletal Deformity - degenerative disc disease, Reports Hx Musculoskeletal Trauma Psychiatric Medical History: Reports: Hx Attention Deficit Hyperactivity Disorder, Hx Bipolar Disorder Traumatic Medical History: Reports: Hx Fractures, Hx Spine Fracture - States "back in 2 places" Infectious Medical History: Denies: Hx Hepatitis Review of Systems - Review of Systems -: Yes ROS unobtainable due to patient's medical condition Respiratory: Short of breath, Wheezing Physical Exam - Vital signs Vitals: Resp Pulse Ox 23 H 99 06/03/18 03:31 06/03/18 03:31 - Notes Notes: PHYSICAL EXAMINATION: GENERAL: Tachypneic, on CPAP placed by EMS. HEAD: Atraumatic, normocephalic. EYES: Pupils equal round and reactive to light, extraocular movements intact, sclera anicteric, conjunctiva are normal. ENT: nares patent, oropharynx clear without exudates. Moist mucous membranes. NECK: Normal range of motion, supple without lymphadenopathy LUNGS: Diffuse wheezing, diminished in upper lobes. HEART: Regular rate and rhythm without murmurs ABDOMEN: Soft, nontender, normoactive bowel sounds. No guarding, no rebound. No masses appreciated. EXTREMITIES: Normal range of motion, no pitting or edema. No cyanosis. NEUROLOGICAL: Cranial nerves grossly intact. Normal speech. Normal sensory and motor exams. SKIN: Warm, Dry, normal turgor, no rashes or lesions noted. Course - Re-evaluation Re-evalutation: Patient seen immediately on arrival. He has diffuse wheezing. Patient was satting 75% on room air when EMS arrived to his house. After 3 duonebs, magnesium, IM Epi and IV Solumedrol, his work of breathing and wheezing has improved. He continues to do well on BiPAP and says he feels better. Venous blood gas is consistent with an acute hypercapnic respiratory acidosis. He is having no chest pain and his EKG remains unchanged from prior EKGs. Patient requires admission for further treatment of his respiratory distress. 06/03/18 04:[address] Anaya (Hospitalist) and she has admitted patient to [facility] as Inpatient. - Vital Signs Vital signs: Temp Pulse Resp BP Pulse Ox 97.5 F 17 135/91 H 95 06/03/18 03:32 06/03/18 04:46 06/03/18 04:46 06/03/18 04:46 - Laboratory Result Diagrams: 06/03/18 03:25 06/03/18 03:25 Laboratory results interpreted by me: 06/03/18 06/03/18 06/03/18 03:25 03:25 03:25 RDW 15.5 H Eosinophils % 13.5 H Absolute Eosinophils 1.1 H VBG pH 7.24 L VBG pCO2 69.1 H* NT-Pro-B Natriuret Pep 2940 H - Diagnostic Test Radiology reviewed: Image reviewed, Reports reviewed Radiology results interpreted by me: CXR: NAD - EKG Interpretation by Me EKG shows normal: Sinus rhythm, [place], Intervals, QRS Complexes Rate: Normal Voltage: Consistant with LVH When compared to previous EKG there are: No significant change Critical Care Note - Critical Care Note Total time excluding time spent on procedures (mins): 36 Discharge - Discharge Clinical Impression: Acute on chronic respiratory failure with hypercapnia, Hypoxia, COPD exacerbation, Respiratory distress Condition: Stable Disposition: ADMITTED INPATIENT Admitting Provider: Hospitalist - [facility] Admitted: IMCU Referrals: MELONIE WESTRBOOK PA-C [Primary Care Provider] - Follow up as needed
[2018-06-03 03:48] LABS: ABSOLUTE EOSINOPHILS # (AUTO) 1.1 10^3/uL (0.0-0.6); ABSOLUTE LYMPHOCYTES (AUTO) 1.8 10^3/uL (0.5-4.7); ABSOLUTE MONOCYTES (AUTO) 0.7 10^3/uL (0.1-1.4); ABSOLUTE NEUT (AUTO) 4.8 10^3/uL (1.7-8.2); BASOPHILS % (AUTO) 0.1 % (0-2); EOSINOPHILS % (AUTO) 13.5 % (0-6); HEMATOCRIT 41.9 % (37.9-51.0); HEMOGLOBIN 14.2 g/dL (13.5-17.0); LYMPHOCYTES % (AUTO) 21.1 % (13-45); MEAN CORPUSCULAR HEMOGLOBIN 30.3 pg (27.0-33.4); MEAN CORPUSCULAR HGB CONC 33.8 g/dL (32.0-36.0); MEAN CORPUSCULAR VOLUME 90 fl (80-97); MONOCYTES % (AUTO) 7.9 % (3-13); PLATELET COUNT 238 10^3/uL (150-450); RED BLOOD COUNT 4.68 10^6/uL (4.35-5.55); RED CELL DISTRIBUTION WIDTH 15.5 % (11.5-14.0); SEGMENTED NEUTROPHILS % (AUTO) 57.4 % (42-78); TOTAL CELLS COUNTED % (AUTO) 100 %; WHITE BLOOD COUNT 8.3 10^3/uL (4.0-10.5)
[2018-06-03 04:02] LABS: ALANINE AMINOTRANSFERASE 32 U/L (21-72); ALBUMIN 4.5 g/dL (3.5-5.0); ALKALINE PHOSPHATASE 65 U/L (38-126); ANION GAP 15 (5-19); ASPARTATE AMINO TRANSFERASE 27 U/L (17-59); BILIRUBIN,DIRECT 0.2 mg/dL (0.0-0.4); BILIRUBIN,TOTAL 0.4 mg/dL (0.2-1.3); BLOOD UREA NITROGEN 10 mg/dL (7-20); CALCIUM 9.5 mg/dL (8.4-10.2); CARBON DIOXIDE 26 mmol/L (22-30); CHLORIDE 102 mmol/L (98-107); CREATINE KINASE 94 U/L (55-170); GLUCOSE 88 mg/dL (75-110); POTASSIUM 4.2 mmol/L (3.6-5.0); SODIUM 142.9 mmol/L (137-145)
[2018-06-03 04:03] LABS: ALCOHOL < 10 mg/dL (NONE DETECTED)
[2018-06-03 04:13] LABS: TROPONIN I 0.028 ng/mL
[2018-06-03 04:14] LABS: VENOUS BLOOD BASE EXCESS -0.4 mmol/L; VENOUS BLOOD HCO3 28.7 mmol/L (20-32); VENOUS BLOOD PH 7.24 (7.30-7.42)
[2018-06-03 04:16] LABS: VENOUS BLOOD PCO2 69.1 mmHg (35-63)
[2018-06-03] MEDS ORDERED: NORMAL SALINE 1000 ML 1,000 ML IV PRN (05:15)
[2018-06-03] MEDS ORDERED: PROMETHAZINE HCL INJ 25 MG/1 ML VIAL IV PRN ×2 (05:15→14:30)
[2018-06-03] MEDS ORDERED: ACETAMINOPHEN 650 MG SUPP.RECT PR PRN (05:15)
--- NOTE | 2018-06-03 05:44 | RADIOLOGY REPORT (SQ) ---
Chest single view on 06/03/2018 at 3:38 AM CLINICAL INDICATION: Hypoxia COMPARISON: 05/29/2018 FINDINGS: There is a trace left pleural effusion versus pleural thickening. Lungs are otherwise clear. Cardiac, hilar and mediastinal contours are within normal limits. Pulmonary vascularity is within normal limits. IMPRESSION: No significant change in the appearance of the chest.
--- NOTE | 2018-06-03 05:57 | PDOC H&P ---
History of Present Illness Admission Date/PCP: 06/03/18 05:14 MELONIE WESTBROOK PA-C Patient complains of: Shortness of breath History of Present Illness: GALI CHURCH JR is a 57 year old male with medical history of COPD not on home oxygen homeless, chronic systolic CHF. Very poor historian and wearing BiPAP. Noncompliant issues . Tells me his symptoms started 3 days ago with progressive shortness of breath, noproductive cough, wheezing. Denies fever or chills, chest pain, nausea or vomiting. When EMS arrived he was found with an oxygen saturation of 78% on room air, he was started on CPAP, given 125 mg IV Solu-Medrol, 0.3 mg IM epi, Nitropaste and 2 g of magnesium with improvement of his shortness of breath and hypoxia. By the time I went to evaluate him he was wearing BiPAP, more comfortable, does not look in distress. Chest x-ray shows emphysema, no acute infiltrates. [facility] Unfortunately patient is actively smoker, tells me his last cigarette was 4 days ago Past Medical History Cardiac Medical History: Reports: Congestive Heart Failure, Coronary Artery Disease, Myocardial Infarction - History of, Hypertension Denies: Hyperlipidema Pulmonary Medical History: Reports: Bronchitis, Chronic Obstructive Pulmonary Disease (COPD), Respiratory Failure Neurological Medical History: Reports: Seizures - Seizures when drinking states he has not drank in 16 years Endocrine Medical History: Denies: Diabetes Mellitus Type 1, Diabetes Mellitus Type 2, Hyperthyroidism, Hypothyroidism GI Medical History: Denies: Cirrhosis, Gastroesophageal Reflux Disease, Hepatitis Musculoskeltal Medical History: Reports: Arthritis Psychiatric Medical History: Reports: Attention Deficit Hyperactivity Disorder, Bipolar Disorder Social History Smoking Status: Current Every Day Smoker Frequency of Alcohol Use: None Hx Recreational Drug Use: Yes Drugs: Cocaine, Marijuana, Other - History of polysubstance abuse though he states he has not used over a month. Hx Prescription Drug Abuse: Yes Family History Family History: CAD, Hyperlipidemia, Hypertension Parental Family History Reviewed: No Children Family History Reviewed: NA Sibling(s) Family History Reviewed.: NA Medication/Allergy Home Medications: Albuterol Sulfate [Ventolin Hfa] 2 puff IH Q4HP PRN #17 gm 05/29/18 Doxycycline Hyclate 100 mg PO BID #20 capsule 05/29/18 Prednisone [Deltasone 10 mg Tablet] 10 mg PO ASDIR PRN #21 tablet 05/29/18 Allergies/Adverse Reactions: No Known Allergies Allergy (Verified 05/29/18 11:11) Review of Systems Review of Systems: As outlined in the HPI, others negative Physical Exam Vital Signs: Temp Pulse Resp BP Pulse Ox 97.5 F 17 135/91 H 95 06/03/18 03:32 06/03/18 04:46 06/03/18 04:46 06/03/18 04:46 Additional comments: General appearance: Disheveled, alert, very poor historian, and appears to be in no acute distress wearing BiPAP Head: Normocephalic Eyes: PEERL, EOMI, vision is grossly intact. Ears: External auditory canal and tympanic membranes clear, hearing grossly intact. Nose: No nasal discharge. Throat: Limited exam as is wearing BiPAP, dry mucosa. Neck: Neck supple, nontender without lymphadenopathy, masses or thyromegaly. Cardiac: Normal S1 and S2. No S3, S4 or murmurs. Rhythm is regular. There is no peripheral edema, cyanosis or pallor. Extremities are warm and well perfused. Capillary refill is less than 2 seconds. No carotid bruits. Lungs: Severely decreased breath sounds with diffuse rales, expiratory wheezing do not appreciate rhonchi. Not using accessory muscles. Abdomen: Positive bowel sounds. Soft. Nondistended, nontender. No guarding or rebound. No masses. No hepatosplenomegaly Extremities: No significant deformity or joint abnormality. No edema. Peripheral pulses intact. No varicosities. Neurological: Cranial nerves II through XII grossly intact. Strength and sensation symmetric and intact throughout. Reflexes 2+ throughout. Skin: Skin normal color, texture and turgor with no lesions or eruptions, warm and dry. Psychiatric: We will to evaluate this patient is poor historian, wearing BiPAP. Results Laboratory Results: 06/03/18 06/03/18 06/03/18 03:25 03:25 03:25 WBC 8.3 Hgb 14.2 Hct 41.9 MCV 90 MCH 30.3 MCHC 33.8 RDW 15.5 H Plt Count 238 Seg Neutrophils % 57.4 Lymphocytes % 21.1 Monocytes % 7.9 Eosinophils % 13.5 H Basophils % 0.1 Absolute Neutrophils 4.8 Absolute Lymphocytes 1.8 Absolute Monocytes 0.7 Absolute Eosinophils 1.1 H Absolute Basophils 0.0 VBG pH VBG pCO2 VBG HCO3 VBG Base Excess Sodium 142.9 Potassium 4.2 Chloride 102 Carbon Dioxide 26 Anion Gap 15 BUN 10 Creatinine 0.92 Est GFR ( Amer) > 60 Est GFR (Non-Af Amer) > 60 Glucose 88 Calcium 9.5 Total Bilirubin 0.4 Direct Bilirubin 0.2 AST 27 ALT 32 Alkaline Phosphatase 65 Creatine Kinase 94 Troponin I 0.028 NT-Pro-B Natriuret Pep 2940 H Total Protein 7.0 Albumin 4.5 06/03/18 03:25 WBC Hgb Hct MCV MCH MCHC RDW Plt Count Seg Neutrophils % Lymphocytes % Monocytes % Eosinophils % Basophils % Absolute Neutrophils Absolute Lymphocytes Absolute Monocytes Absolute Eosinophils Absolute Basophils VBG pH 7.24 L VBG pCO2 69.1 H* VBG HCO3 28.7 VBG Base Excess -0.4 Sodium Potassium Chloride Carbon Dioxide Anion Gap BUN Creatinine Est GFR ( Amer) Est GFR (Non-Af Amer) Glucose Calcium Total Bilirubin Direct Bilirubin AST ALT Alkaline Phosphatase Creatine Kinase Troponin I NT-Pro-B Natriuret Pep Total Protein Albumin Assessment & Plan - Diagnosis (1) Respiratory failure with hypoxia and hypercapnia Qualifiers: Chronicity: acute Qualified Code(s): J96.01 - Acute respiratory failure with hypoxia; J96.02 - Acute respiratory failure with hypercapnia; J96.02 - Acute respiratory failure with hypercapnia; J96.02 - Acute respiratory failure with hypercapnia Is this a current diagnosis for this admission?: Yes Plan: Comes with acute hypoxic and hypercapnic respiratory failure, initial oxygen saturation 70%, BV G with a CO2 of 69, baseline in the 60s. Patient is on BiPAP and we will continue with this. IV azithromycin. Solu-Medrol 60 mg every 8 hours. RT consult. Nebulizer treatments as needed. Continue telemetry monitoring. (2) COPD exacerbation Is this a current diagnosis for this admission?: Yes Plan: As per prior assessment. (3) Systolic CHF, chronic Is this a current diagnosis for this admission?: Yes Plan: Patient has chronic systolic with an ejection fraction of 35%, tells me that he used to wear a life vest but another homeless people throw it away. Current cardiac symptomatology. Troponins x1 negative. Continue telemetry monitoring. BNP 2940, better than priors. (4) Tobacco abuse Is this a current diagnosis for this admission?: Yes Plan: Personal the patient is a still a smoker, I am not sure how many cigarettes does he smoke. I will place him on Nicotin patch 14 mg/24 hours, can be switched to higher dose. - Time Time Spent: 30 to 50 Minutes - Inpatient Certification Based on my medical assessment, after consideration of the patient's comorbidities, presenting symptoms, or acuity I expect that the services needed warrant INPATIENT care.: Yes I certify that my determination is in accordance with my understanding of Medicare's requirements for reasonable and necessary INPATIENT services [42 CFR 412.3e].: Yes Medical Necessity: Risk of Complication if Not Cared For in Hospital
[2018-06-03] MEDS ORDERED: IPRATROPIUM/ALBUTEROL 0.5-2.5 MG/3 ML AMPUL NEB SCH ×2 (06:00→08:00)
[2018-06-03] MEDS ORDERED: METHYLPREDNISOLONE INJ 40 MG/1 ML SDV IV SCH (06:00)
[2018-06-03] MEDS ORDERED: LORAZEPAM INJ 2 MG/1 ML VIAL IV PRN ×2 (06:04→07:57)
[2018-06-03] MEDS ORDERED: LORAZEPAM 1 MG TABLET PO ONE (06:04)
[2018-06-03 06:47] LABS: ARTERIAL BLOOD BASE EXCESS -0.3 mmol/L; ARTERIAL BLOOD HCO3 23.6 mmol/L (20-26); ARTERIAL BLOOD O2 SATURATION 98.6 % (94-98); ARTERIAL BLOOD PCO2 36.6 mmHg (35-45); ARTERIAL BLOOD PH 7.43 (7.35-7.45); ARTERIAL BLOOD TOTAL CO2 24.8 mmol/L (23-27)
--- NOTE | 2018-06-03 06:48 | EKG REPORT ---
SEVERITY:- ABNORMAL ECG - SINUS RHYTHM BIATRIAL ABNORMALITIES LVH WITH SECONDARY REPOLARIZATION ABNORMALITY ANTERIOR ST ELEVATION, PROBABLY DUE TO LVH PROLONGED QT INTERVAL : Confirmed by: Ivan Oseguera 03-Jun-2018 06:47:21
[2018-06-03 06:50] LABS: ARTERIAL BLOOD FIO2 35%
[2018-06-03] MEDS ORDERED: ETOMIDATE INJ/PF 20 MG/10 ML SDV IV ONE (07:50)
[2018-06-03] MEDS ORDERED: PROPOFOL 1,000 MG/100 ML INFUS..BTL IV ONE (07:53)
[2018-06-03] MEDS ORDERED: IPRATROPIUM/ALBUTEROL 0.5-2.5 MG/3 ML AMPUL NEB ONE (07:59)
[2018-06-03] MEDS ORDERED: MORPHINE SULFATE 10 MG/ML INJ IV PRN (08:23)
[2018-06-03 08:41] LABS: ARTERIAL BLOOD BASE EXCESS -4.6 mmol/L; ARTERIAL BLOOD H2CO3 1.22 mmol/L (1.05-1.35); ARTERIAL BLOOD HCO3 20.9 mmol/L (20-26); ARTERIAL BLOOD O2 SATURATION 98.6 % (94-98); ARTERIAL BLOOD PCO2 40.4 mmHg (35-45); ARTERIAL BLOOD PH 7.33 (7.35-7.45); ARTERIAL BLOOD PO2 136.2 mmHg (80-100); ARTERIAL BLOOD TOTAL CO2 22.2 mmol/L (23-27)
[2018-06-03 08:44] LABS: ARTERIAL BLOOD FIO2 45%
[2018-06-03 08:50] LABS: CREATINE KINASE MB 1.92 ng/mL (<4.55); TROPONIN I 0.026 ng/mL
[2018-06-03] MEDS ORDERED: ASPIRIN 325 MG TABLET PO ONE (09:00)
[2018-06-03] MEDS ORDERED: MORPHINE SULFATE 10 MG/ML INJ IV ONE (09:00)
[2018-06-03] MEDS: ENOXAPARIN SODIUM INJ 80 MG/0.8 ML DISP.SYRIN SUBCUT SCH ×2 (09:15→21:51)
[2018-06-03] MEDS: THIAMINE HCL 100 MG TABLET PO SCH (09:15)
[2018-06-03] MEDS: FOLIC ACID 1 MG TABLET PO SCH (09:15)
[2018-06-03] MEDS: MULTIVITAMIN TABLET PO SCH (09:16)
[2018-06-03 09:24] LABS: INTERNATIONAL RATION (INR) 0.88; PROTHROMBIN TIME 12.4 SEC (11.4-15.4)
[2018-06-03 09:25] LABS: PARTIAL THROMBOPLASTIN TIME 29.7 SEC (23.5-35.8)
[2018-06-03] MEDS ORDERED: ENOXAPARIN SODIUM INJ 40 MG/0.4 ML DISP.SYRIN SUBCUT SCH (10:00)
[2018-06-03] MEDS: AZITHROMYCIN 500 MG in DEXTROSE 5%-WATER 250 ML IV SCH (10:38)
--- NOTE | 2018-06-03 10:54 | EKG REPORT ---
SEVERITY:- ABNORMAL ECG - SINUS TACHYCARDIA BIATRIAL ABNORMALITIES LVH WITH SECONDARY REPOLARIZATION ABNORMALITY ST DEPRESSION, CONSIDER ISCHEMIA, ANT-LAT LDS : Confirmed by: Blessing Serrano MD 03-Jun-2018 10:53:37
[2018-06-03] MEDS: IPRATROPIUM/ALBUTEROL 0.5-2.5 MG/3 ML AMPUL NEB SCH ×3 (12:36→20:36)
[2018-06-03] MEDS ORDERED: METHYLPREDNISOLONE INJ 125 MG/2 ML SDV IV SCH (14:00)
[2018-06-03] MEDS: METHYLPREDNISOLONE INJ 125 MG/2 ML SDV IV SCH ×2 (14:20→21:50)
[2018-06-03 15:17] LABS: CREATINE KINASE MB 1.58 ng/mL (<4.55); TROPONIN I 0.017 ng/mL
[2018-06-03] MEDS: NICOTINE 21 MG/24 HR PATCH.TD24 TD SCH (16:47)
[2018-06-03] MEDS: OXYCODONE-ACETAMINOPHEN 5-325 MG TABLET PO PRN ×2 (16:48→21:49)
--- NOTE | 2018-06-03 18:22 | Progress Note ---
Provider Note Provider Note: The patient is a 57-year-old male with a past medical history significant for COPD, CHF (LVEF 35%; who per previous hospital records has thrown away his LifeVest), CAD, [place], HTN, chronic pain, and tobacco abuse with continuous use who was admitted the has multiple morning of 06/03/18 by the [employer] for COPD exacerbation. He patient was briefly seen while still in the emergency department awaiting transfer to his inpatient room. At the time of assessment, the patient was on BiPAP, tachypnea, tachycardic, having just received additional nebulizer treatments. Per the emergency room nurse, the ED physician had just been at the bedside evaluating possible need for intubation and that ABG was pending. He was provided IV Ativan and morphine with improvement in his respiratory status. The patient denied reports that he is feeling better than at the time of his arrival but continues to report dyspnea, palpitations, and chest pain. He is briefly checked on again later this afternoon and found to be sitting up right in bed comfortably on supplemental oxygen via nasal cannula. The patient was briefly seen, overnight events, labs, imaging, and orders were reviewed. Agree with the established plan. 1) Acute on chronic respiratory failure with hypoxia and hypercapnia; secondary to COPD exacerbation in the setting of CHF with severely reduced ejection fraction. The patient was provided IV steroids, scheduled and as needed nebulizer treatments, supplemental oxygen with BiPAP as needed. 2) COPD exacerbation; plan as above. 3) Chest pain; the patient was provided full dose aspirin and will continue on daily aspirin therapy. He is started on full dose Lovenox. Currently has nitroglycerin paste on. IV morphine was provided as needed for breakthrough pain. Serial troponins were trended; negative 3. Likely his chest pain is related to his acute respiratory failure, although, the patient does have multiple significant risk factors. Consider cardiac consultation. 4) chronic systolic CHF; patient has chronic systolic CHF with ejection fraction of 35%; previously threw away his LifeVest. ProBNP is better than priors, chest imaging is clear, lungs are clear, no edema. Troponins negative 3. Continue home dose metoprolol. 5) bipolar; continue patient's home regiment. 6) tobacco abuse, continuous; smoking cessation is encouraged, nicotine replacement therapies are provided.
[2018-06-03 20:43] LABS: APPEARANCE,URINE CLEAR; BILIRUBIN,URINE NEGATIVE (NEGATIVE); COLOR,URINE YELLOW; GLUCOSE, URINE >=500 mg/dL (NEGATIVE); KETONES,URINE NEGATIVE (NEGATIVE); LEUKOCYTE ESTERASE,URINE NEGATIVE (NEGATIVE); NITRITE,URINE NEGATIVE (NEGATIVE); PROTEIN,URINE NEGATIVE (NEGATIVE); URINE SPECIFIC GRAVITY 1.013; UROBILINOGEN,URINE NEGATIVE mg/dL (<2.0)
[2018-06-03 21:01] LABS: URINE AMPHETAMINES SCREEN NEGATIVE; URINE BARBITURATES SCREEN NEGATIVE; URINE BENZODIAZEPINES SCREEN NEGATIVE; URINE COCAINE SCREEN NEGATIVE; URINE MARIJUANA (THC) SCREEN NEGATIVE; URINE METHADONE SCREEN NEGATIVE; URINE PHENCYCLIDINE SCREEN NEGATIVE
[2018-06-03] MEDS: BENZTROPINE MESYLATE 1 MG TABLET PO SCH (21:47)
[2018-06-03] MEDS: DIVALPROEX SODIUM 500 MG TAB.SR.24H PO SCH (21:48)
[2018-06-03] MEDS: OLANZAPINE 5 MG TABLET PO SCH (21:48)
[2018-06-03] MEDS: BUSPIRONE HCL 10 MG TABLET PO SCH (21:48)
[2018-06-03 21:49] LABS: CREATINE KINASE MB 1.15 ng/mL (<4.55); TROPONIN I 0.013 ng/mL
[2018-06-03] MEDS ORDERED: ROCURONIUM BROMIDE INJ 50 MG/5 ML VIAL IV ONE (21:58)
--- NOTE | 2018-06-03 22:04 | EKG REPORT ---
SEVERITY:- ABNORMAL ECG - SINUS RHYTHM EVELIN, CONSIDER BIATRIAL ABNORMALITIES LVH WITH SECONDARY REPOLARIZATION ABNORMALITY : Confirmed by: Blessing Serrano MD 03-Jun-2018 22:03:58
[2018-06-04] MEDS: IPRATROPIUM/ALBUTEROL 0.5-2.5 MG/3 ML AMPUL NEB SCH ×6 (00:30→20:51)
[2018-06-04] MEDS: OXYCODONE-ACETAMINOPHEN 5-325 MG TABLET PO PRN ×4 (01:41→20:43)
[2018-06-04] MEDS: ASPIRIN 81 MG TABLET, ENT COATED PO SCH ×2 (04:01→09:38)
[2018-06-04 04:38] LABS: HEMATOCRIT 37.4 % (37.9-51.0); HEMOGLOBIN 12.5 g/dL (13.5-17.0); MEAN CORPUSCULAR HEMOGLOBIN 29.6 pg (27.0-33.4); MEAN CORPUSCULAR HGB CONC 33.5 g/dL (32.0-36.0); MEAN CORPUSCULAR VOLUME 88 fl (80-97); PLATELET COUNT 220 10^3/uL (150-450); RED BLOOD COUNT 4.23 10^6/uL (4.35-5.55); RED CELL DISTRIBUTION WIDTH 15.4 % (11.5-14.0); WHITE BLOOD COUNT 12.2 10^3/uL (4.0-10.5)
[2018-06-04] MEDS: METHYLPREDNISOLONE INJ 125 MG/2 ML SDV IV SCH (05:03)
[2018-06-04 06:22] LABS: ANION GAP 13 (5-19); BLOOD UREA NITROGEN 18 mg/dL (7-20); CALCIUM 9.7 mg/dL (8.4-10.2); CARBON DIOXIDE 23 mmol/L (22-30); CHLORIDE 101 mmol/L (98-107); CHOLESTEROL 132.94 mg/dL (0-200); GLUCOSE 160 mg/dL (75-110); PHOSPHORUS 2.6 mg/dL (2.5-4.5); POTASSIUM 4.7 mmol/L (3.6-5.0); SODIUM 136.6 mmol/L (137-145); TRIGLYCERIDES 56 mg/dL (<150)
[2018-06-04 06:33] LABS: DIRECT LDL 57 mg/dL (<100)
[2018-06-04] MEDS: AZITHROMYCIN 500 MG in DEXTROSE 5%-WATER 250 ML IV SCH (09:37)
[2018-06-04] MEDS: NICOTINE 21 MG/24 HR PATCH.TD24 TD SCH (09:37)
[2018-06-04] MEDS: ENOXAPARIN SODIUM INJ 80 MG/0.8 ML DISP.SYRIN SUBCUT SCH ×2 (09:37→22:03)
[2018-06-04] MEDS: OLANZAPINE 5 MG TABLET PO SCH ×2 (09:38→22:03)
[2018-06-04] MEDS: DIVALPROEX SODIUM 500 MG TAB.SR.24H PO SCH ×2 (09:38→22:02)
[2018-06-04] MEDS: MULTIVITAMIN TABLET PO SCH (09:38)
[2018-06-04] MEDS: BUSPIRONE HCL 10 MG TABLET PO SCH ×2 (09:38→22:02)
[2018-06-04] MEDS: METOPROLOL SUCCINATE 25 MG TAB.SR.24H PO SCH (09:38)
[2018-06-04] MEDS: THIAMINE HCL 100 MG TABLET PO SCH (09:38)
[2018-06-04] MEDS: FOLIC ACID 1 MG TABLET PO SCH (09:38)
[2018-06-04] MEDS ORDERED: METHYLPREDNISOLONE INJ 125 MG/2 ML SDV IV SCH (12:00)
[2018-06-04] MEDS: METHYLPREDNISOLONE INJ 40 MG/1 ML SDV IV SCH ×3 (12:20→23:04)
--- NOTE | 2018-06-04 19:32 | PDOC PROGRESS REPORT ---
Subjective Progress Note for:: 06/04/18 Subjective:: 57 y.o.M admitted for COPD exacerbation. PMH includes COPD, CHF, (LVEF 35%), CAD , [place], HTN, chronic pain, tobacco abuse. The patient was seen this morning on rounds, he is resting comfortably in bed on supplemental oxygen. The patient denies feeling short of breath, he has no complaints this morning. Lung sounds clear to auscultation. No wheezing or other adventitious breath sounds. The patient denies cough. S1S2. NSR on cardiac telemetry. Reason For Visit: COPD EXACERBATION Physical Exam Vital Signs: Temp Pulse Resp BP Pulse Ox 97.8 F 109 H 24 H 133/78 H 86 L 06/04/18 16:24 06/04/18 15:58 06/04/18 16:00 06/04/18 14:01 06/04/18 16:00 Intake & Output 06/03/18 06/04/18 06/05/18 06:59 06:59 06:59 Intake Total 480 189 Output Total 350 1150 Balance -350 -670 189 Weight 68.039 kg General appearance: PRESENT: no acute distress, thin Head exam: PRESENT: atraumatic Eye exam: PRESENT: conjunctiva pink, PERRLA Mouth exam: PRESENT: moist Teeth exam: PRESENT: poor dentation Neck exam: PRESENT: full ROM Respiratory exam: PRESENT: clear to auscultation nyasia, symmetrical, unlabored Cardiovascular exam: PRESENT: +S1, +S2 Pulses: PRESENT: normal radial pulses, normal dorsalis pedis pul Vascular exam: PRESENT: normal capillary refill GI/Abdominal exam: PRESENT: normal bowel sounds, soft. ABSENT: tenderness Rectal exam: PRESENT: deferred Extremities exam: PRESENT: full ROM Musculoskeletal exam: PRESENT: ambulatory, full ROM Neurological exam: PRESENT: alert, awake, oriented to person, oriented to place , oriented to time, oriented to situation Psychiatric exam: PRESENT: appropriate affect Focused psych exam: PRESENT: other Skin exam: PRESENT: intact, normal color, warm Results Laboratory Results: 06/04/18 04:25 06/04/18 04:25 06/03/18 06/04/18 06/04/18 20:25 04:25 04:25 WBC 12.2 H RBC 4.23 L Hgb 12.5 L Hct 37.4 L MCV 88 MCH 29.6 MCHC 33.5 RDW 15.4 H Plt Count 220 Sodium 136.6 L Potassium 4.7 Chloride 101 Carbon Dioxide 23 Anion Gap 13 BUN 18 Creatinine 0.77 Est GFR ( Amer) > 60 Est GFR (Non-Af Amer) > 60 Glucose 160 H Calcium 9.7 Phosphorus 2.6 Triglycerides 56 Cholesterol 132.94 LDL Cholesterol Direct 57 VLDL Cholesterol 11.0 HDL Cholesterol 70 Urine Color YELLOW Urine Appearance CLEAR Urine pH 5.0 Ur Specific [place] 1.013 Urine Protein NEGATIVE Urine Glucose (UA) >=500 H Urine Ketones NEGATIVE Urine Blood NEGATIVE Urine Nitrite NEGATIVE Ur Leukocyte Esterase NEGATIVE Urine WBC (Auto) 0 Urine RBC (Auto) 0 06/03/18 06/03/18 06/03/18 07:59 14:21 21:00 CK-MB (CK-2) 1.92 1.58 1.15 Troponin I 0.026 0.017 0.013 Impressions: Chest X-Ray 06/03/18 03:29 IMPRESSION: No significant change in the appearance of the chest. Status: Imported from PACS Assessment & Plan - Diagnosis (1) Acute on chronic respiratory failure with hypercapnia Is this a current diagnosis for this admission?: Yes Plan: Secondary to COPD exacerbation in the setting of CHF with LVEF 35% Continue IV Solu-Medrol PRN scheduled nebulizer treatments Supplemental oxygen via nasal cannula to maintain SPO2>88% BiPAP as needed (2) COPD exacerbation Is this a current diagnosis for this admission?: Yes Plan: PLAN ABOVE (3) Chest pain Is this a current diagnosis for this admission?: Yes Plan: Resolved. Likely related to respiratory disease but patient EKG shows NSR, no ischemia or infarction Serial Troponin < 0.012 Daily ASA therapy Full dose lovenox (4) Bipolar 1 disorder Is this a current diagnosis for this admission?: Yes Plan: Continue home dose medications (5) Congestive heart failure Is this a current diagnosis for this admission?: Yes Plan: History of CHF LVEF 35% Previously using LifeVest but states someone stole it or threw it away CXR benign, only shows chronic COPD changes Serial troponin < 0.012, no longer trending Continue home dose Metoprolol BNP 2940 - better than previous admissions (6) Tobacco abuse Is this a current diagnosis for this admission?: Yes Plan: Encouraged smoking cessation Nicotine patch offered (7) Homeless Is this a current diagnosis for this admission?: Yes Plan: Patient states he lives on the streets Asked discharge planning for placement assistance, medication assistance, and possibly obtaining another LifeVest - Time Time Spent with patient: 15-24 minutes Medications reviewed and adjusted accordingly: Yes Anticipated discharge: Home - Inpatient Certification Based on my medical assessment, after consideration of the patient's comorbidities, presenting symptoms, or acuity I expect that the services needed warrant INPATIENT care.: Yes I certify that my determination is in accordance with my understanding of Medicare's requirements for reasonable and necessary INPATIENT services [42 CFR 412.3e].: Yes Medical Necessity: Risk of Complication if Not Cared For in Hospital - Plan Summary Plan Summary: CONTINUE CURRENT THERAPIES. REQUIRE ASSISTANCE FROM DISCHARGE PLANNING TO HELP FIND SAFE LIVING ENVIRONMENT
[2018-06-04] MEDS: BENZTROPINE MESYLATE 1 MG TABLET PO SCH (22:02)
[2018-06-05] MEDS: IPRATROPIUM/ALBUTEROL 0.5-2.5 MG/3 ML AMPUL NEB SCH ×4 (00:27→11:24)
[2018-06-05] MEDS: OXYCODONE-ACETAMINOPHEN 5-325 MG TABLET PO PRN ×3 (04:08→14:45)
[2018-06-05 05:19] LABS: HEMATOCRIT 38.6 % (37.9-51.0); HEMOGLOBIN 13.2 g/dL (13.5-17.0); MEAN CORPUSCULAR HEMOGLOBIN 30.1 pg (27.0-33.4); MEAN CORPUSCULAR HGB CONC 34.2 g/dL (32.0-36.0); MEAN CORPUSCULAR VOLUME 88 fl (80-97); PLATELET COUNT 210 10^3/uL (150-450); RED BLOOD COUNT 4.38 10^6/uL (4.35-5.55); RED CELL DISTRIBUTION WIDTH 15.8 % (11.5-14.0); WHITE BLOOD COUNT 14.5 10^3/uL (4.0-10.5)
[2018-06-05] MEDS: METHYLPREDNISOLONE INJ 40 MG/1 ML SDV IV SCH ×2 (05:27→12:42)
[2018-06-05 05:34] LABS: ANION GAP 14 (5-19); BLOOD UREA NITROGEN 21 mg/dL (7-20); CALCIUM 9.8 mg/dL (8.4-10.2); CARBON DIOXIDE 25 mmol/L (22-30); CHLORIDE 103 mmol/L (98-107); GLUCOSE 121 mg/dL (75-110); PHOSPHORUS 2.7 mg/dL (2.5-4.5); POTASSIUM 4.6 mmol/L (3.6-5.0); SODIUM 141.7 mmol/L (137-145)
[2018-06-05] MEDS: METOPROLOL SUCCINATE 25 MG TAB.SR.24H PO SCH (09:56)
[2018-06-05] MEDS: THIAMINE HCL 100 MG TABLET PO SCH (09:56)
[2018-06-05] MEDS: OLANZAPINE 5 MG TABLET PO SCH (09:56)
[2018-06-05] MEDS: DIVALPROEX SODIUM 500 MG TAB.SR.24H PO SCH (09:56)
[2018-06-05] MEDS: MULTIVITAMIN TABLET PO SCH (09:56)
[2018-06-05] MEDS: BUSPIRONE HCL 10 MG TABLET PO SCH (09:57)
[2018-06-05] MEDS: ASPIRIN 81 MG TABLET, ENT COATED PO SCH (09:57)
[2018-06-05] MEDS: FOLIC ACID 1 MG TABLET PO SCH (09:57)
[2018-06-05] MEDS: ENOXAPARIN SODIUM INJ 80 MG/0.8 ML DISP.SYRIN SUBCUT SCH (09:58)
[2018-06-05] MEDS: NICOTINE 21 MG/24 HR PATCH.TD24 TD SCH (09:58)
[2018-06-05] MEDS ORDERED: AZITHROMYCIN 250 MG TABLET PO SCH (10:00)
[2018-06-05] MEDS ORDERED: TIOTROPIUM BROMIDE DPI 5 CAP/KIT (18 MCG/CAP) IH SCH (14:00)
[2018-06-05] MEDS ORDERED: FLUTICASONE/SALMETEROL DISKUS 250-50 MCG/DOSE IH SCH (14:00)
[2018-06-05 17:00] VITALS: BP 154/78
[2018-06-05] MEDS ORDERED: OXYCODONE-ACETAMINOPHEN 5-325 MG TABLET PO ONE (17:30)
--- NOTE | 2018-06-06 08:15 | PDOC DISCHARGE SUMMARY ---
General - Admit/Disc Date/PCP Admission Date/Primary Care Provider: 06/03/18 05:14 MELONIE WESTBROOK PA-C Discharge Date: 06/05/18 - Discharge Diagnosis (1) Acute on chronic respiratory failure with hypercapnia Is this a current diagnosis for this admission?: Yes (2) COPD exacerbation Is this a current diagnosis for this admission?: Yes (3) Chest pain Is this a current diagnosis for this admission?: Yes (4) Bipolar 1 disorder Is this a current diagnosis for this admission?: Yes (5) Congestive heart failure Is this a current diagnosis for this admission?: Yes (6) Tobacco abuse Is this a current diagnosis for this admission?: Yes (7) Homeless Is this a current diagnosis for this admission?: Yes - Additional Information Resuscitation Status: Full Code Discharge Diet: Cardiac Discharge Activity: Activity As Tolerated, Balance Activity w/Rest, Energy Conservation Prescriptions: Azithromycin [Zithromax 250 mg Tablet] 500 mg PO DAILY #3 tablet Fluticasone/Salmeterol [Advair 250-50 Diskus 14 Dose/Diskus] 1 inh IH Q12 #1 inhaler Nicotine [Nicoderm 21 mg/24 Hr Transderm Patch] 1 each TD DAILY #30 patch.td24 Tiotropium [place] [Spiriva Handihaler 5 Cap/Kit (18 Mcg/Cap)] 1 cap IH DAILY # 1 kit Home Medications: Albuterol Sulfate [Proair HFA Inhalation Aerosol 8.5 gm MDI] 2 puff IH Q6HP PRN 06/03/18 Alprazolam [Xanax] 2 mg PO Q8 06/03/18 Benztropine Mesylate [Cogentin 1 mg Tablet] 1 mg PO QHS 06/03/18 Buspirone HCl [Buspar 10 mg Tablet] 10 mg PO Q12 06/03/18 Dextroamphetamine/Amphetamine [Adderall 30 mg Tablet] 60 mg PO BID@0800,1200 Divalproex Sodium [Divalproex Sodium ER] 500 mg PO Q12 06/03/18 Metoprolol Succinate [Toprol Xl 25 mg Tab.sr] 12.5 mg PO DAILY 06/03/18 Olanzapine [Zyprexa 5 mg Tablet] 5 mg PO Q12 06/03/18 Tiotropium [place] [Spiriva Handihaler 5 Cap/Kit (18 Mcg/Cap)] 1 puff IH DAILY 06/03/18 Azithromycin [Zithromax 250 mg Tablet] 500 mg PO DAILY #3 tablet 06/05/18 Fluticasone/Salmeterol [Advair 250-50 Diskus 14 Dose/Diskus] 1 inh IH Q12 #1 inhaler 06/05/18 Nicotine [Nicoderm 21 mg/24 Hr Transderm Patch] 1 each TD DAILY #30 patch.td24 06/05/18 Tiotropium [place] [Spiriva Handihaler 5 Cap/Kit (18 Mcg/Cap)] 1 cap IH DAILY # 1 kit 06/05/18 Trazodone HCl 100 mg PO QHS 06/05/18 History of Present Illness History of Present Illness: GALI CHURCH JR is a 57 year old male with medical history of COPD not on home oxygen homeless, chronic systolic CHF. Very poor historian and wearing BiPAP. Noncompliant issues . Tells me his symptoms started 3 days ago with progressive shortness of breath, noproductive cough, wheezing. Denies fever or chills, chest pain, nausea or vomiting. When EMS arrived he was found with an oxygen saturation of 78% on room air, he was started on CPAP, given 125 mg IV Solu-Medrol, 0.3 mg IM epi, Nitropaste and 2 g of magnesium with improvement of his shortness of breath and hypoxia. By the time I went to evaluate him he was wearing BiPAP, more comfortable, does not look in distress. Chest x-ray shows emphysema, no acute infiltrates. VBG 7 Unfortunately patient is actively smoker, tells me his last cigarette was 4 days ago Hospital Course Hospital Course: 57 y.o. homeless male admitted for a COPD exacerbation. This patient is well known to the hospitalist service and has been admitted for the same diagnosis multiple times in the past. The patient is a long-time smoker, who states he recently quit smoking "4 days ago." The patient has a history of CHF with an LVEF of 35%. He was previously using LifeVest but states someone stole it or threw it away. Upon admission, CXR was benign, only shows chronic COPD changes. EKG showed NSR. Serial troponin < 0.012. BNP 2940 - better than previous admissions. The patient was initially placed on BIPAP for hypoxic respiratory failure and his COPD exacerbation was treated with IV steroids, scheduled and PRN nebulizer treatments, and empiric antibiotics. He was able to wean from BIPAP early on in his admission, only requiring supplemental oxygen via nasal cannula to maintain SPO2>88%. After approximately 2 days in the hospital, the patient was deemed safe for discharge. His respiratory symptoms had resolved, vital signs were stable, and the patient no longer required supplemental oxygen. The patient was given resources/phone numbers for local homeless shelters in the area. The patient states that, while he does not have a place of his own, he stays with a male friend on his couch. The patient does not want to move into a snf because he would have to surrender a portion of the funding he receives from the government every month (unclear if this is disability, social security, etc.). The patient states he uses the money to buy his medications and pay for food. The patient was sent home with prescriptions for a steroid taper, Spiriva, Advair, and 3 days of azithromycin to complete his course of antibiotics. Additionally, the patient requested a prescription for a nicotine patch because he "wants to stop smoking." This was provided to him and extensive smoking cessation counseling was offered. The patient stated understanding of his discharge instructions. For further information regarding the patient's hospital stay, please refer to the EMR. Physical Exam Vital Signs: Temp Pulse Resp BP Pulse Ox 97.9 F 99 16 154/78 H 96 06/05/18 16:59 06/05/18 16:59 06/05/18 16:59 06/05/18 16:59 06/05/18 16:59 Intake & Output 06/05/18 06/06/18 06/07/18 06:59 06:59 06:59 Intake Total 1093 573 Output Total 2100 Balance -1007 573 Weight 66 kg Results Laboratory Results: 06/05/18 05:08 06/05/18 05:08 06/05/18 10:14 Stool Occult Blood NEGATIVE 06/03/18 06/03/18 06/03/18 07:59 14:21 21:00 CK-MB (CK-2) 1.92 1.58 1.15 Troponin I 0.026 0.017 0.013 Impressions: Chest X-Ray 06/03/18 03:29 IMPRESSION: No significant change in the appearance of the chest. Status: Imported from PACS Qualifiers - * PATIENT BEING DISCHARGED WITH ANY OF THE FOLLOWING DIAGNOSIS: No Plan Discharge Plan: DISCHARGE HOME WITH STEROID TAPER, SPIRIVA AND ADVAIR INHALERS. Time Spent: Less than 30 Minutes
== END 2018-06-05 17:49 | disposition home or self-care (01) | DRG 189 ==
LOC: ER 03:28 → EH 05:14 → 3S 06-04 20:14
PROVIDERS: ADMIT Internal Medicine; ATTEND Internal Medicine
DX: J96.22 Acute and chronic respiratory failure with hypercapnia (principal); J44.1 Chronic obstructive pulmonary disease with (acute) exacerbation; I50.22 Chronic systolic (congestive) heart failure; J96.21 Acute and chronic respiratory failure with hypoxia; I27.20 Pulmonary hypertension, unspecified; I11.0 Hypertensive heart disease with heart failure; F19.10 Other psychoactive substance abuse, uncomplicated; F90.9 Attention-deficit hyperactivity disorder, unspecified type; F31.9 Bipolar disorder, unspecified; F17.210 Nicotine dependence, cigarettes, uncomplicated; I25.2 Old myocardial infarction; Z59.0 Homelessness
CPT/HCPCS: 36415; 36600; 71045; 80048; 80053; 80061; 80164; 80307; 81001; 82272; 82550; 82553; 82803; 83605; 83735; 83880; 84100; 84484; 85025; 85027; 85610; 85730; 87040; 93005; 93010; 94640; 94660; 99291; J0456; J1650; J2270; J2920; J2930; J3490; J7030; J7060; J7620

== ENCOUNTER 2018-06-25 21:37 | Inpatient (IN) | payer MEDICAID ==
--- NOTE | 2018-06-25 21:44 | ER Document Report ---
ED General - General Mode of Arrival: Medic Information source: Patient, Emergency Med Personnel TRAVEL OUTSIDE OF THE [place] IN LAST 30 DAYS: No <KIM HILTON - Last Filed: 06/25/18 23:11> <CHATA HERNANDEZ - Last Filed: 06/26/18 03:27> - General Stated Complaint: BREATHING DIFFICULTY Time Seen by Provider: 06/25/18 21:37 Notes: 57 y.o male with COPD, HTN and chronic systolic CHF presents to the ED via EMS with trouble breathing. EMS reports that they have given 3 albuterol treatments , Solumedrol and is now on CPAP upon arrival which pt reports have relieved him somewhat. EMS report some intermittent wheezing. Pt reports a sudden onset of troubled breathing around 10:00 this morning. He admits to a subjective fever recently. He denies any CP. 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 He also reports being hospitalized about 2 months ago for COPD exacerbation. He takes Proair and uses nicotine patches regularly. He denies being on any blood thinners. (KIM HILTON) - Related Data Allergies/Adverse Reactions: No Known Allergies Allergy (Verified 05/29/18 11:11) Past Medical History - General Information source: Patient - Social History Smoking Status: Current Every Day Smoker Smoking Education Provided: Yes Family History: CAD, Hyperlipidemia, Hypertension - Past Medical History Cardiac Medical History: Reports: Hx Congestive Heart Failure, Hx Coronary Artery Disease, Hx Heart Attack - History of, Hx Hypertension Denies: Hx Hypercholesterolemia Pulmonary Medical History: Reports: Hx Bronchitis, Hx COPD, Hx Respiratory Failure Neurological Medical History: Reports: Hx Seizures - Seizures when drinking states he has not drank in 16 years Endocrine Medical History: Denies: Hx Diabetes Mellitus Type 1, Hx Diabetes Mellitus Type 2, Hx Hyperthyroidism, Hx Hypothyroidism Renal/ Medical History: Denies: Hx Peritoneal Dialysis GI Medical History: Denies: Hx Cirrhosis, Hx Gastroesophageal Reflux Disease, Hx Hepatitis Musculoskeletal Medical History: Reports Hx Arthritis, Reports Hx Musculoskeletal Deformity - degenerative disc disease, Reports Hx Musculoskeletal Trauma Psychiatric Medical History: Reports: Hx Attention Deficit Hyperactivity Disorder, Hx Bipolar Disorder, Hx Depression - anxiety Traumatic Medical History: Reports: Hx Fractures, Hx Spine Fracture - States "back in 2 places" Infectious Medical History: Denies: Hx Hepatitis <KIM HILTON - Last Filed: 06/25/18 23:11> Review of Systems - Review of Systems Constitutional: See HPI, Fever EENT: No symptoms reported Cardiovascular: See HPI. denies: Chest pain Respiratory: See HPI, Short of breath, Wheezing - per EMS Gastrointestinal: No symptoms reported Genitourinary: No symptoms reported Male Genitourinary: No symptoms reported Musculoskeletal: No symptoms reported Skin: No symptoms reported Hematologic/Lymphatic: No symptoms reported Neurological/Psychological: No symptoms reported -: Yes All other systems reviewed and negative <KIM HILOTN - Last Filed: 06/25/18 23:11> Physical Exam <KIM HILTON - Last Filed: 06/25/18 23:11> <CHATA HERNANDEZ - Last Filed: 06/26/18 03:27> - Vital signs Vitals: Resp Pulse Ox 29 H 92 06/25/18 21:40 06/25/18 21:40 - Notes Notes: Physical Exam: General: Alert. Moderate distress. HEENT: Normocephalic. Atraumatic. PERRL. Extraocular movements intact. Oropharynx clear. Neck: Supple. Non-tender. Respiratory: Tachypnic. CPAP on face. Coarse expiratory wheezing. Cardiovascular: Regular rate and rhythm. Abdominal: Normal Inspection. Non-tender. No distension. Normal Bowel Sounds. Back: Non-tender. No deformity or step off. Extremities: Moves all four extremities. Upper extremities: Normal inspection. Normal ROM. Lower extremities: Normal inspection. No edema. Normal ROM. Neurological: Normal cognition. AAOx3. Normal speech. Psychological: Normal affect. Normal Mood. Skin: Warm. Dry. Normal color. (KIM HILTON) Course - Laboratory Result Diagrams: 06/25/18 20:59 06/25/18 20:59 <KIM HILTON - Last Filed: 06/25/18 23:11> - Laboratory Result Diagrams: 06/25/18 20:59 06/25/18 20:59 - Diagnostic Test Radiology reviewed: Image reviewed, Reports reviewed <CHATA HERNANDEZ - Last Filed: 06/26/18 03:27> - Re-evaluation Re-evalutation: 06/25/18 23:11 Rechecked pt. He is feeling better, requests something to drink, will get ice chips. (KIM HILTON) Patient is a 57-year-old male who came in a respiratory distress. He is wheezing. Received Solu-Medrol, DuoNeb, and magnesium. He is much improved on BiPAP. Patient has a very small left pleural effusion. She is requesting something to drink. He is a poor historian. Patient was given Levaquin for his fever and COPD exacerbation. No other source of infection identified at this time. Refer to the hospitalist service for admission. (CHATA HERNANDEZ) - Vital Signs Vital signs: Temp Pulse Resp BP Pulse Ox 98.2 F 17 107/76 97 06/25/18 21:58 06/26/18 03:01 06/26/18 03:01 06/26/18 03:01 - Laboratory Laboratory results interpreted by me: 06/25/18 06/25/18 20:59 20:59 Hgb 13.3 L RDW 15.2 H Eosinophils % 12.2 H Absolute Eosinophils 0.9 H NT-Pro-B Natriuret Pep 3400 H Critical Care Note - Critical Care Note Total time excluding time spent on procedures (mins): 35 - Evaluation and management of respiratory distress with multiple evaluations, coordination of admission, counseling of patient <CHATA HERNANDEZ - Last Filed: 06/26/18 03:27> Discharge <KIM HILTON - Last Filed: 06/25/18 23:11> - [facility] Admitted: Telemetry <CHATA HERNANDEZ - Last Filed: 06/26/18 03:27> - Discharge Clinical Impression: COPD exacerbation Acute and chronic respiratory failure Qualifiers: Respiratory failure complication: hypoxia Qualified Code(s): J96.21 - Acute and chronic respiratory failure with hypoxia Condition: Stable Disposition: ADMITTED INPATIENT Scribe Attestation: 06/26/18 03:27 I personally performed the services described in the documentation, reviewed and edited the documentation which was dictated to the scribe in my presence, and it accurately records my words and actions. (CHATA HERNANDEZ) Scribe Documentation - Scribe Written by Ginette:: Ginette Cedeno 8/14/18 2140 acting as scribe for :: Vianca <KIM HILTON - Last Filed: 06/25/18 23:11>
[2018-06-25 21:55] LABS: ABSOLUTE EOSINOPHILS # (AUTO) 0.9 10^3/uL (0.0-0.6); ABSOLUTE LYMPHOCYTES (AUTO) 1.6 10^3/uL (0.5-4.7); ABSOLUTE MONOCYTES (AUTO) 0.6 10^3/uL (0.1-1.4); ABSOLUTE NEUT (AUTO) 4.6 10^3/uL (1.7-8.2); EOSINOPHILS % (AUTO) 12.2 % (0-6); HEMATOCRIT 38.8 % (37.9-51.0); HEMOGLOBIN 13.3 g/dL (13.5-17.0); LYMPHOCYTES % (AUTO) 20.7 % (13-45); MEAN CORPUSCULAR HEMOGLOBIN 30.4 pg (27.0-33.4); MEAN CORPUSCULAR HGB CONC 34.1 g/dL (32.0-36.0); MEAN CORPUSCULAR VOLUME 89 fl (80-97); MONOCYTES % (AUTO) 7.6 % (3-13); PLATELET COUNT 178 10^3/uL (150-450); RED BLOOD COUNT 4.37 10^6/uL (4.35-5.55); RED CELL DISTRIBUTION WIDTH 15.2 % (11.5-14.0); SEGMENTED NEUTROPHILS % (AUTO) 59.5 % (42-78); TOTAL CELLS COUNTED % (AUTO) 100 %; WHITE BLOOD COUNT 7.7 10^3/uL (4.0-10.5)
[2018-06-25 21:59] LABS: INTERNATIONAL RATION (INR) 0.87; PROTHROMBIN TIME 12.3 SEC (11.4-15.4)
[2018-06-25 22:06] LABS: VENOUS BLOOD BASE EXCESS 3.1 mmol/L; VENOUS BLOOD HCO3 30.9 mmol/L (20-32); VENOUS BLOOD PCO2 61.3 mmHg (35-63); VENOUS BLOOD PH 7.32 (7.30-7.42)
[2018-06-25 22:09] LABS: ALANINE AMINOTRANSFERASE 26 U/L (21-72); ALBUMIN 4.2 g/dL (3.5-5.0); ALKALINE PHOSPHATASE 55 U/L (38-126); ANION GAP 12 (5-19); ASPARTATE AMINO TRANSFERASE 22 U/L (17-59); BILIRUBIN,DIRECT 0.3 mg/dL (0.0-0.4); BILIRUBIN,TOTAL 0.5 mg/dL (0.2-1.3); BLOOD UREA NITROGEN 7 mg/dL (7-20); CALCIUM 9.6 mg/dL (8.4-10.2); CARBON DIOXIDE 29 mmol/L (22-30); CHLORIDE 104 mmol/L (98-107); GLUCOSE 82 mg/dL (75-110); POTASSIUM 3.7 mmol/L (3.6-5.0); SODIUM 144.5 mmol/L (137-145); TOTAL PROTEIN 6.3 g/dL (6.3-8.2)
--- NOTE | 2018-06-25 22:09 | RADIOLOGY REPORT (SQ) ---
EXAM DESCRIPTION: CHEST SINGLE VIEW COMPLETED DATE/TIME: 06/25/2018 10:01 pm REASON FOR STUDY: SOB COMPARISON: 06/03/2018 EXAM PARAMETERS: NUMBER OF VIEWS: One view. TECHNIQUE: Single frontal radiographic view of the chest acquired. RADIATION DOSE: NA LIMITATIONS: None. FINDINGS: LUNGS AND PLEURA: There is hyperexpansion of the lungs. There is a minimal left pleural e ffusion. MEDIASTINUM AND HILAR STRUCTURES: No masses. Contour normal. HEART AND VASCULAR STRUCTURES: Heart normal in size. Normal vasculature. BONES: No acute findings. HARDWARE: None in the chest. OTHER: No other significant finding. IMPRESSION: Chronic lung changes. Minimal left pleural effusion. TECHNICAL DOCUMENTATION: JOB ID: [id number] [employer]- All Rights Reserved Reading location - IP/workstation name: [email or web address]
[2018-06-25] MEDS ORDERED: IPRATROPIUM/ALBUTEROL 0.5-2.5 MG/3 ML AMPUL NEB ONE (22:21)
[2018-06-25] MEDS ORDERED: METHYLPREDNISOLONE INJ 125 MG/2 ML SDV IV ONE (22:21)
[2018-06-25] MEDS: MAGNESIUM SULFATE/D5W 1 GM/100 ML RTUPB IV SCH ×2 (22:40→23:20)
[2018-06-25] MEDS ORDERED: DIVALPROEX SODIUM 500 MG TAB.SR.24H PO ONE (23:00)
[2018-06-25] MEDS ORDERED: TRAZODONE HCL 50 MG TABLET PO ONE (23:00)
[2018-06-25] MEDS ORDERED: LEVOFLOXACIN 750 MG/D5W RTU 750 MG/150 ML RTUPB IV ONE (23:19)
[2018-06-25] MEDS ORDERED: GUAIFENESIN SYRP 200 MG/10 ML UDC PO PRN (23:23)
[2018-06-25] MEDS ORDERED: IPRATROPIUM/ALBUTEROL 0.5-2.5 MG/3 ML AMPUL NEB PRN (23:23)
[2018-06-25] MEDS ORDERED: MAG HYDROX/AL HYDROX/SIMETH SUSP 30 ML UDCUP PO PRN (23:23)
[2018-06-25] MEDS ORDERED: MAGNESIUM HYDROXIDE SUSP 30 ML UDCUP PO PRN (23:23)
[2018-06-25] MEDS ORDERED: BUSPIRONE HCL 10 MG TABLET PO ONE (23:30)
[2018-06-25] MEDS ORDERED: BENZTROPINE MESYLATE 1 MG TABLET PO ONE (23:30)
[2018-06-25] MEDS ORDERED: AZITHROMYCIN INJ 500 MG VIAL IV PRN (23:52)
[2018-06-26] MEDS ORDERED: AZITHROMYCIN 500 MG in DEXTROSE 5%-WATER 250 ML IV ONE ×2
[2018-06-26] MEDS ORDERED: CEFTRIAXONE 1 GM/D5W RTU 1 GM/50 ML RTUPB IV ONE
[2018-06-26] MEDS ORDERED: CEFTRIAXONE INJ 1000 MG VIAL ONE (00:22)
[2018-06-26] MEDS: IPRATROPIUM/ALBUTEROL 0.5-2.5 MG/3 ML AMPUL NEB SCH ×4 (01:19→21:41)
[2018-06-26 01:53] LABS: APPEARANCE,URINE CLEAR; BILIRUBIN,URINE NEGATIVE (NEGATIVE); COLOR,URINE STRAW; GLUCOSE, URINE 50 mg/dL (NEGATIVE); KETONES,URINE NEGATIVE (NEGATIVE); LEUKOCYTE ESTERASE,URINE NEGATIVE (NEGATIVE); NITRITE,URINE NEGATIVE (NEGATIVE); PROTEIN,URINE NEGATIVE (NEGATIVE); URINE SPECIFIC GRAVITY 1.004; UROBILINOGEN,URINE NEGATIVE mg/dL (<2.0)
[2018-06-26] MEDS ORDERED: IPRATROPIUM/ALBUTEROL 0.5-2.5 MG/3 ML AMPUL NEB SCH (02:00)
[2018-06-26] MEDS: IPRATROPIUM/ALBUTEROL 0.5-2.5 MG/3 ML AMPUL NEB PRN (03:42)
[2018-06-26 04:06] LABS: URINE AMPHETAMINES SCREEN NEGATIVE; URINE BARBITURATES SCREEN NEGATIVE; URINE BENZODIAZEPINES SCREEN NEGATIVE; URINE COCAINE SCREEN NEGATIVE; URINE MARIJUANA (THC) SCREEN NEGATIVE; URINE METHADONE SCREEN NEGATIVE; URINE PHENCYCLIDINE SCREEN NEGATIVE
[2018-06-26] MEDS: ACETAMINOPHEN 325 MG TABLET PO PRN ×2 (04:40→10:28)
[2018-06-26] MEDS: HEPARIN SOD (PORCINE) 5,000 UNIT/ML 1 ML SYRINGE SUBCUT SCH ×3 (05:51→23:06)
--- NOTE | 2018-06-26 07:15 | EKG REPORT ---
SEVERITY:- ABNORMAL ECG - SINUS RHYTHM ATRIAL PREMATURE COMPLEX PROBABLE LEFT VENTRICULAR HYPERTROPHY LATERAL INFARCT, AGE INDETERMINATE ANTERIOR ST ELEVATION, PROBABLY DUE TO LVH BORDERLINE PROLONGED QT INTERVAL : Confirmed by: Enrike Sheridan MD 26-Jun-2018 07:13:41
[2018-06-26 07:40] LABS: ABSOLUTE LYMPHOCYTES (AUTO) 0.4 10^3/uL (0.5-4.7); ABSOLUTE MONOCYTES (AUTO) 0.1 10^3/uL (0.1-1.4); ABSOLUTE NEUT (AUTO) 5.1 10^3/uL (1.7-8.2); EOSINOPHILS % (AUTO) 0.8 % (0-6); HEMATOCRIT 35.9 % (37.9-51.0); HEMOGLOBIN 12.3 g/dL (13.5-17.0); LYMPHOCYTES % (AUTO) 7.3 % (13-45); MEAN CORPUSCULAR HEMOGLOBIN 30.5 pg (27.0-33.4); MEAN CORPUSCULAR HGB CONC 34.4 g/dL (32.0-36.0); MEAN CORPUSCULAR VOLUME 89 fl (80-97); MONOCYTES % (AUTO) 1.1 % (3-13); PLATELET COUNT 168 10^3/uL (150-450); RED BLOOD COUNT 4.05 10^6/uL (4.35-5.55); RED CELL DISTRIBUTION WIDTH 14.9 % (11.5-14.0); SEGMENTED NEUTROPHILS % (AUTO) 90.8 % (42-78); TOTAL CELLS COUNTED % (AUTO) 100 %; WHITE BLOOD COUNT 5.7 10^3/uL (4.0-10.5)
[2018-06-26 07:51] LABS: ANION GAP 14 (5-19); BLOOD UREA NITROGEN 8 mg/dL (7-20); CALCIUM 9.4 mg/dL (8.4-10.2); CARBON DIOXIDE 23 mmol/L (22-30); CHLORIDE 102 mmol/L (98-107); GLUCOSE 165 mg/dL (75-110); POTASSIUM 3.9 mmol/L (3.6-5.0); SODIUM 139.1 mmol/L (137-145)
[2018-06-26] MEDS: FUROSEMIDE INJ/PF 40 MG/4 ML SDV IV SCH (07:55)
--- NOTE | 2018-06-26 08:02 | PDOC H&P ---
History of Present Illness Admission Date/PCP: 06/25/18 23:36 MELONIE WESTBROOK PA-C Patient complains of: Shortness of breath History of Present Illness: GALI CHURCH JR is a 57 year old homeless male with a past medical history of congestive heart failure with an ejection fraction of 35%, moderate mitral regurgitation and pulmonary hypertension, COPD with chronic bronchitis, schizophrenia, tobacco and polysubstance abuse. Patient presents with severe shortness of breath with hypoxia requiring BiPAP. He is found to have chronic changes on chest x-ray and elevated BNP of 4000. He receives empiric antibiotics and referred to the hospitalist for admission. Patient admits noncompliance with all medications and lifestyle. He denies chest pain. Past Medical History Cardiac Medical History: Reports: Congestive Heart Failure, Coronary Artery Disease, Myocardial Infarction - History of, Hypertension Denies: Hyperlipidema Pulmonary Medical History: Reports: Bronchitis, Chronic Obstructive Pulmonary Disease (COPD), Respiratory Failure Neurological Medical History: Reports: Seizures - Seizures when drinking states he has not drank in 16 years Endocrine Medical History: Denies: Diabetes Mellitus Type 1, Diabetes Mellitus Type 2, Hyperthyroidism, Hypothyroidism GI Medical History: Denies: Cirrhosis, Gastroesophageal Reflux Disease, Hepatitis Musculoskeltal Medical History: Reports: Arthritis Psychiatric Medical History: Reports: Attention Deficit Hyperactivity Disorder, Bipolar Disorder, Depression - anxiety, Schizoaffective Disorder, Substance Abuse Social History Information Source: Patient, [facility] Records Lives with: Homeless Smoking Status: Current Every Day Smoker Frequency of Alcohol Use: None Hx Recreational Drug Use: No Drugs: Cocaine, Marijuana, Other - History of polysubstance abuse though he states he has not used over a month. Hx Prescription Drug Abuse: Yes - Advance Directive Resuscitation Status: Full Code Family History Family History: CAD, Hyperlipidemia, Hypertension Parental Family History Reviewed: Yes Children Family History Reviewed: Yes Sibling(s) Family History Reviewed.: Yes Medication/Allergy Allergies/Adverse Reactions: No Known Allergies Allergy (Verified 05/29/18 11:11) Review of Systems Constitutional: ABSENT: chills, fever(s), headache(s), weight gain, weight loss Eyes: ABSENT: visual disturbances Ears: ABSENT: hearing changes Cardiovascular: ABSENT: chest pain, dyspnea on exertion, edema, orthropnea, palpitations Respiratory: ABSENT: cough, hemoptysis Gastrointestinal: ABSENT: abdominal pain, constipation, diarrhea, hematemesis, hematochezia, nausea, vomiting Genitourinary: ABSENT: dysuria, hematuria Musculoskeletal: ABSENT: joint swelling Integumentary: ABSENT: rash, wounds Neurological: ABSENT: abnormal gait, abnormal speech, confusion, dizziness, focal weakness, syncope Psychiatric: ABSENT: anxiety, depression, homidical ideation, suicidal ideation Endocrine: ABSENT: cold intolerance, heat intolerance, polydipsia, polyuria Hematologic/Lymphatic: ABSENT: easy bleeding, easy bruising Physical Exam Vital Signs: Temp Pulse Resp BP Pulse Ox 98.2 F 21 H 120/77 96 06/26/18 03:36 06/26/18 07:01 06/26/18 07:01 06/26/18 07:01 Intake & Output 06/24/18 06/25/18 06/26/18 11:59 11:59 11:59 Intake Total 520 Output Total 500 Balance 20 Weight 64.864 kg General appearance: PRESENT: cooperative, disheveled, severe distress, thin Head exam: PRESENT: atraumatic, normocephalic Eye exam: PRESENT: conjunctiva pink, EOMI, PERRLA. ABSENT: scleral icterus Ear exam: PRESENT: normal external ear exam Mouth exam: PRESENT: moist, tongue midline Neck exam: PRESENT: carotid bruit Respiratory exam: PRESENT: accessory muscle use, crackles, decreased breath sounds, prolonged expiratory phas, rales, retraction, symmetrical, tachypnea. ABSENT: chest wall tenderness Cardiovascular exam: PRESENT: RRR. ABSENT: diastolic murmur, rubs, systolic murmur Pulses: PRESENT: normal dorsalis pedis pul Vascular exam: PRESENT: normal capillary refill GI/Abdominal exam: PRESENT: normal bowel sounds, soft. ABSENT: distended, guarding, mass, organolmegaly, rebound, tenderness Rectal exam: PRESENT: deferred Extremities exam: PRESENT: full ROM. ABSENT: calf tenderness, clubbing, pedal edema Neurological exam: PRESENT: alert, awake, oriented to person, oriented to place , oriented to time, oriented to situation, CN II-XII grossly intact. ABSENT: motor sensory deficit Psychiatric exam: PRESENT: appropriate affect, normal mood. ABSENT: homicidal ideation, suicidal ideation Skin exam: PRESENT: dry, intact, warm. ABSENT: cyanosis, rash Results Laboratory Results: 06/26/18 07:07 06/26/18 06/26/18 01:24 07:07 Sodium 139.1 Potassium 3.9 Chloride 102 Carbon Dioxide 23 Anion Gap 14 BUN 8 Creatinine 0.68 Est GFR ( Amer) > 60 Est GFR (Non-Af Amer) > 60 Glucose 165 H Calcium 9.4 Urine Color STRAW Urine Appearance CLEAR Urine pH 7.0 Ur Specific [place] 1.004 Urine Protein NEGATIVE Urine Glucose (UA) 50 H Urine Ketones NEGATIVE Urine Blood NEGATIVE Urine Nitrite NEGATIVE Ur Leukocyte Esterase NEGATIVE Urine WBC (Auto) 0 Impressions: Chest X-Ray 06/25/18 21:41 IMPRESSION: Chronic lung changes. Minimal left pleural effusion. Assessment & Plan - Diagnosis (1) Acute and chronic respiratory failure Qualifiers: Respiratory failure complication: hypoxia Qualified Code(s): J96.21 - Acute and chronic respiratory failure with hypoxia Is this a current diagnosis for this admission?: Yes Plan: IMCU admission, multifactorial cause secondary to acute on chronic respiratory failure and CHF exacerbation. Supplemental oxygen, BiPAP, incentive spirometry, Flonase, DuoNeb, diuresis. Education (2) COPD exacerbation Is this a current diagnosis for this admission?: Yes Plan: Pneumonia care set. (3) Acute on chronic systolic and diastolic heart failure, NYHA class 3 Is this a current diagnosis for this admission?: Yes Plan: Secondary to noncompliance, BiPAP, diuresis, education (4) Bipolar 1 disorder with moderate jovi Is this a current diagnosis for this admission?: Yes Plan: Haldol as needed (5) Homeless Is this a current diagnosis for this admission?: Yes Plan: Discharge planning consulted - Time Time Spent: 50 to 70 Minutes - Inpatient Certification Medical Necessity: Need Close Monitoring Due to Risk of Patient Decompensation
[2018-06-26] MEDS: NICOTINE 21 MG/24 HR PATCH.TD24 TD SCH (10:25)
[2018-06-26] MEDS: OLANZAPINE 5 MG TABLET PO SCH ×2 (10:27→23:08)
[2018-06-26] MEDS: DOCUSATE SODIUM 100 MG CAPSULE PO SCH ×2 (10:28→17:30)
[2018-06-26] MEDS: DIVALPROEX SODIUM 500 MG TAB.SR.24H PO SCH ×2 (10:28→23:06)
[2018-06-26] MEDS: BUSPIRONE HCL 10 MG TABLET PO SCH ×2 (10:28→23:05)
[2018-06-26] MEDS: METOPROLOL SUCCINATE 25 MG TAB.SR.24H PO SCH ×2 (10:29→10:39)
[2018-06-26] MEDS ORDERED: HALOPERIDOL LACTATE INJ 5 MG/1 ML VIAL IV PRN (12:38)
[2018-06-26] MEDS ORDERED: ACETAMINOPHEN 325 MG TABLET PO ONE (13:15)
[2018-06-26] MEDS ORDERED: OXYCODONE-ACETAMINOPHEN 5-325 MG TABLET PO PRN (13:25)
[2018-06-26] MEDS ORDERED: METHYLPHENIDATE HCL 5 MG TABLET PO SCH (14:00)
[2018-06-26] MEDS ORDERED: CLONAZEPAM 1 MG TABLET PO PRN (14:45)
[2018-06-26] MEDS ORDERED: OXYCODONE-ACETAMINOPHEN 5-325 MG TABLET ONE (17:30)
[2018-06-26] MEDS: CLONAZEPAM 1 MG TABLET PO SCH (18:03)
--- NOTE | 2018-06-26 21:25 | PDOC PROGRESS REPORT ---
Subjective Progress Note for:: 06/26/18 Subjective:: 57-year-old homeless male with a past medical history significant for systolic heart failure with an EF of 35%, pulmonary hypertension, COPD, chronic bronchitis, schizophrenia, impulse disorder, depression, tobacco use, and polysubstance abuse. Patient presented to the emergency department with severe shortness of breath was found to be hypoxic and was placed on a BiPAP machine and was treated with IV Lasix. Patient's been continued on nebulized pulmonary medications. Patient states that he was recently taking Adderall, this was last filled on 05/25/18. Patient states that he has been taking Xanax and is looking for a new provider for this, last filled on 05/10/18. Patient states that he has got chronic neck and back pain and is requesting opiate medications. Prior discharge list do show Percocets being used to treat his chronic pain. There is concern that this patient may need placement at the time of discharge. We will consult care coordinators for this. Reason For Visit: COPD EXACERBATION ACUTE ON CHRONIC BRONCHITIS CHF Physical Exam Vital Signs: Temp Pulse Resp BP Pulse Ox 98.1 F 98 16 112/67 97 06/26/18 10:13 06/26/18 14:00 06/26/18 13:57 06/26/18 10:13 06/26/18 10:13 Intake & Output 06/25/18 06/26/18 06/27/18 06:59 06:59 06:59 Intake Total 520 740 Output Total 500 Balance 20 740 Weight 64.864 kg 67.261 kg General appearance: PRESENT: no acute distress, thin Head exam: PRESENT: atraumatic, normocephalic Eye exam: PRESENT: EOMI, PERRLA. ABSENT: conjunctival injection Ear exam: PRESENT: normal external ear exam. ABSENT: bleeding Mouth exam: PRESENT: moist. ABSENT: dry mucosa Throat exam: ABSENT: post pharyngeal erythema, tonsillar exudate Neck exam: PRESENT: full ROM. ABSENT: carotid bruit Respiratory exam: ABSENT: accessory muscle use, rales, rhonchi, unlabored, wheezes Cardiovascular exam: PRESENT: RRR, +S1, +S2 Pulses: ABSENT: normal carotid pulses, normal dorsalis pedis pul GI/Abdominal exam: PRESENT: soft. ABSENT: ascites, mass, rigid, tenderness Extremities exam: ABSENT: calf tenderness, joint swelling Musculoskeletal exam: PRESENT: full ROM. ABSENT: ambulatory Neurological exam: PRESENT: alert, awake, oriented to person, oriented to place , oriented to time, oriented to situation Psychiatric exam: PRESENT: agitated. ABSENT: flat affect Focused psych exam: ABSENT: catatonic, paranoid Skin exam: ABSENT: dry, mottled Results Laboratory Results: 06/26/18 07:07 06/26/18 07:07 06/26/18 06/26/18 06/26/18 01:24 07:07 07:07 WBC 5.7 RBC 4.05 L Hgb 12.3 L Hct 35.9 L MCV 89 MCH 30.5 MCHC 34.4 RDW 14.9 H Plt Count 168 Seg Neutrophils % 90.8 H Lymphocytes % 7.3 L Monocytes % 1.1 L Eosinophils % 0.8 Basophils % 0.0 Absolute Neutrophils 5.1 Absolute Lymphocytes 0.4 L Absolute Monocytes 0.1 Absolute Eosinophils 0.0 Absolute Basophils 0.0 Sodium 139.1 Potassium 3.9 Chloride 102 Carbon Dioxide 23 Anion Gap 14 BUN 8 Creatinine 0.68 Est GFR ( Amer) > 60 Est GFR (Non-Af Amer) > 60 Glucose 165 H Calcium 9.4 Urine Color STRAW Urine Appearance CLEAR Urine pH 7.0 Ur Specific [place] 1.004 Urine Protein NEGATIVE Urine Glucose (UA) 50 H Urine Ketones NEGATIVE Urine Blood NEGATIVE Urine Nitrite NEGATIVE Ur Leukocyte Esterase NEGATIVE Urine WBC (Auto) 0 Impressions: Chest X-Ray 06/25/18 21:41 IMPRESSION: Chronic lung changes. Minimal left pleural effusion. Assessment & Plan - Diagnosis (1) Acute and chronic respiratory failure Qualifiers: Respiratory failure complication: hypoxia Qualified Code(s): J96.21 - Acute and chronic respiratory failure with hypoxia Is this a current diagnosis for this admission?: Yes Plan: with hypoxia on arrival. now on 2L NC, speaking in full sentences. continue nebulized treatments. Continue to wean to room air. (2) Acute on chronic systolic and diastolic heart failure, NYHA class 3 Is this a current diagnosis for this admission?: Yes Plan: elevated BNP. continue daily IV lasix 40mg. (3) COPD exacerbation Is this a current diagnosis for this admission?: Yes Plan: continue empiric antibiotics at present. possible d/c soon. (4) Homeless Is this a current diagnosis for this admission?: Yes Plan: PT consulted, D/C planning consulted for possible placement into a SNF. difficult care situation with patient's homelessness and poor self care behaviors. (5) Nicotine dependence Qualifiers: Nicotine product type: cigarettes Is this a current diagnosis for this admission?: Yes Plan: continue nicotine patch. (6) Chronic pain Is this a current diagnosis for this admission?: Yes Plan: giving access to Percocet 5/325mg, this was his dose on his last hospital discharge. (7) Anxiety Is this a current diagnosis for this admission?: Yes Plan: starting clonazepam 1mg q12h not restarting his Xanax taken in OP, and last filled on 05/10/18 - Time Time Spent with patient: 15-24 minutes - Inpatient Certification Based on my medical assessment, after consideration of the patient's comorbidities, presenting symptoms, or acuity I expect that the services needed warrant INPATIENT care.: Yes I certify that my determination is in accordance with my understanding of Medicare's requirements for reasonable and necessary INPATIENT services [42 CFR 412.3e].: Yes Medical Necessity: Need Close Monitoring Due to Risk of Patient Decompensation
[2018-06-26] MEDS ORDERED: AZITHROMYCIN 500 MG in DEXTROSE 5%-WATER 250 ML IV SCH (22:00)
[2018-06-26] MEDS ORDERED: BENZTROPINE MESYLATE 1 MG TABLET PO SCH (22:00)
[2018-06-26] MEDS ORDERED: TRAZODONE HCL 50 MG TABLET PO SCH (22:00)
[2018-06-26] MEDS ORDERED: CEFTRIAXONE 1 GM/D5W RTU 1 GM/50 ML RTUPB IV SCH (22:00)
[2018-06-26] MEDS: OXYCODONE-ACETAMINOPHEN 5-325 MG TABLET PO PRN (23:07)
[2018-06-27] MEDS ORDERED: CEFTRIAXONE INJ 500 MG VIAL ONE (00:49)
[2018-06-27] MEDS: IPRATROPIUM/ALBUTEROL 0.5-2.5 MG/3 ML AMPUL NEB SCH ×3 (01:52→13:47)
[2018-06-27] MEDS: CLONAZEPAM 1 MG TABLET PO SCH ×2 (05:25→17:33)
[2018-06-27] MEDS: OXYCODONE-ACETAMINOPHEN 5-325 MG TABLET PO PRN ×4 (05:26→17:32)
[2018-06-27] MEDS: HEPARIN SOD (PORCINE) 5,000 UNIT/ML 1 ML SYRINGE SUBCUT SCH ×2 (05:26→13:25)
[2018-06-27] MEDS: IPRATROPIUM/ALBUTEROL 0.5-2.5 MG/3 ML AMPUL NEB PRN (05:41)
[2018-06-27 06:39] LABS: HEMATOCRIT 35.1 % (37.9-51.0); HEMOGLOBIN 12.1 g/dL (13.5-17.0); MEAN CORPUSCULAR HEMOGLOBIN 30.6 pg (27.0-33.4); MEAN CORPUSCULAR HGB CONC 34.6 g/dL (32.0-36.0); MEAN CORPUSCULAR VOLUME 88 fl (80-97); PLATELET COUNT 163 10^3/uL (150-450); RED BLOOD COUNT 3.97 10^6/uL (4.35-5.55); RED CELL DISTRIBUTION WIDTH 15.2 % (11.5-14.0); WHITE BLOOD COUNT 8.7 10^3/uL (4.0-10.5)
[2018-06-27 07:08] LABS: ALBUMIN 3.5 g/dL (3.5-5.0); CARBON DIOXIDE 27 mmol/L (22-30); GLUCOSE 110 mg/dL (75-110); PHOSPHORUS 4.1 mg/dL (2.5-4.5); POTASSIUM 3.7 mmol/L (3.6-5.0); SODIUM 138.8 mmol/L (137-145)
[2018-06-27 07:09] LABS: BLOOD UREA NITROGEN 14 mg/dL (7-20); CALCIUM 9.4 mg/dL (8.4-10.2)
[2018-06-27 07:26] LABS: ANION GAP 12 (5-19); CHLORIDE 100 mmol/L (98-107)
[2018-06-27] MEDS: FUROSEMIDE INJ/PF 40 MG/4 ML SDV IV SCH (07:50)
[2018-06-27] MEDS: DIVALPROEX SODIUM 500 MG TAB.SR.24H PO SCH (09:23)
[2018-06-27] MEDS: DOCUSATE SODIUM 100 MG CAPSULE PO SCH ×2 (09:23→17:33)
[2018-06-27] MEDS: NICOTINE 21 MG/24 HR PATCH.TD24 TD SCH (09:24)
[2018-06-27] MEDS: METOPROLOL SUCCINATE 25 MG TAB.SR.24H PO SCH (09:24)
[2018-06-27] MEDS: ACETAMINOPHEN 325 MG TABLET PO PRN (12:38)
--- NOTE | 2018-06-27 14:48 | Physician Advisory Note ---
Physician Advisor ProgressNote .: [facility], I have reviewed the medical record for this patient. Physician Advisor Statement: Pt w/COPD, pulmonary HTN, noncompliance w/Rx's/diet for CHF, presented w/ tachypnea, tachycardia, resp distress, labored breathing, fever to 102.2, hypoxemia (O2 sat only 94% on 50% FiO2, then needing Bipap), productive cough, unable to lie flat (orthopnea), crackles (rales) on lung exam, pleural effusion. Nice documentation of Acute Hypoxemic Respiratory Failure, & Ac on Chr syst/ diast CHF. Please consider documenting, if you agree: 1. "Acute bronchitis" (or what infxn is being tx'd w/Zithromax/Rocephin, since COPD exac.s don't always require abx unless possible underlying infxn is suspected) 2. Findings supporting dx of COPD exacerbation, as opposed to [end-stage] COPD, at baseline: A. Increased cough > baseline? B. Increased sputum > baseline? C. Increased dyspnea > baseline? 3. Evidence that supports dx of Chronic Respiratory Failure, or state if this dx is r/o'd. (Typical evidence for this dx can include chronic hypercarbia, or Chronic need for O2.) Thanks! CK
[2018-06-27 18:16] VITALS: BP 115/65
[2018-06-27] MEDS ORDERED: CEFTRIAXONE SODIUM 1,000 MG in NORMAL SALINE 50 ML IV SCH (22:00)
[2018-06-27] MEDS ORDERED: BENZTROPINE MESYLATE 1 MG TABLET PO SCH (22:00)
[2018-06-27] MEDS ORDERED: CEFTRIAXONE SODIUM 1,000 MG in DEXTROSE 5%-WATER 50 ML IV SCH (22:00)
[2018-06-27] MEDS ORDERED: OLANZAPINE 5 MG TABLET PO SCH (22:00)
--- NOTE | 2018-06-28 08:40 | PDOC DISCHARGE SUMMARY ---
General - Admit/Disc Date/PCP Admission Date/Primary Care Provider: 06/25/18 23:36 MELONIE WESTBROOK PA-C Discharge Date: 06/27/18 - Discharge Diagnosis (1) Acute and chronic respiratory failure Is this a current diagnosis for this admission?: Yes Summary: with initial hypoxia, which resolved before d/c (2) Acute bronchitis Is this a current diagnosis for this admission?: Yes Summary: given a course of Azithromycin to complete (3) Acute on chronic systolic and diastolic heart failure, NYHA class 3 Is this a current diagnosis for this admission?: Yes Summary: initially given IV lasix, placed on maintenance PO lasix at discharge. (4) COPD exacerbation Is this a current diagnosis for this admission?: Yes (5) Homeless Is this a current diagnosis for this admission?: Yes (6) Nicotine dependence Is this a current diagnosis for this admission?: Yes (7) Chronic pain Is this a current diagnosis for this admission?: Yes (8) Anxiety Is this a current diagnosis for this admission?: Yes - Additional Information Resuscitation Status: Full Code Discharge Diet: Cardiac Discharge Activity: Activity As Tolerated, Balance Activity w/Rest, Weigh Daily Prescriptions: Albuterol Sulfate [Albuterol Sulfate 2.5mg/3 mL] 1 vial IH Q4 PRN 7 Days #42 vial PRN Reason: Albuterol Sulfate [Proair HFA] 2 puff IH Q4HP PRN 30 Days #1 hfa.aer.ad PRN Reason: Shortness Of Breath Aspirin [Adult Low Dose Aspirin EC] 81 mg PO DAILY 30 Days #30 tablet.dr Azithromycin 500 mg PO DAILY 5 Days #5 tablet Benztropine Mesylate [Cogentin 1 mg Tablet] 1 mg PO QHS 30 Days #30 tablet Budesonide/Formoterol Fumarate [Symbicort Hfa 160-4.5 Mcg Inhaler 6 gm] 2 puff IH Q12 30 Days #1 inhaler Buspirone HCl [Buspar 10 mg Tablet] 10 mg PO Q12 30 Days #60 tablet Clonazepam [Klonopin 1 mg Tablet] 1 mg PO Q12A 5 Days #10 tablet Dextroamphetamine/Amphetamine [Adderall 30 mg Tablet] 60 mg PO BID@0800,1300 5 Days #10 tablet Divalproex Sodium [Depakote ER 500 mg Tab.sr] 500 mg PO Q12 30 Days #60 tab.sr.24h Furosemide [Lasix 40 mg Tablet] 40 mg PO QAM 30 Days #30 tablet Guaifenesin [Robitussin Syrup 200 mg/10 ml Ud Cup] 200 mg PO Q4HP PRN 5 Days # 200 ml PRN Reason: Metoprolol Succinate [Toprol Xl 25 mg Tab.sr] 25 mg PO DAILY 30 Days #30 tab.sr.24h Nicotine [Nicoderm 21 mg/24 Hr Transderm Patch] 1 each TD DAILY 14 Days #14 patch.td24 Olanzapine [Zyprexa 5 mg Tablet] 5 mg PO Q12 30 Days #60 tablet Oxycodone HCl/Acetaminophen [Percocet 5-325 mg Tablet] 1 tab PO Q4HP PRN 5 Days #24 tablet PRN Reason: Tiotropium [place] [Spiriva Handihaler 18 mcg/dose (30 Dose)] 18 mcg IH DAILY 30 Days #1 cap.w.dev Trazodone HCl [Desyrel 50 mg Tablet] 100 mg PO QHS 30 Days #30 tablet Home Medications: Albuterol Sulfate [Albuterol Sulfate 2.5mg/3 mL] 1 vial IH Q4 PRN 7 Days #42 vial 06/27/18 Albuterol Sulfate [Proair HFA] 2 puff IH Q4HP PRN 30 Days #1 hfa.aer.ad Aspirin [Adult Low Dose Aspirin EC] 81 mg PO DAILY 30 Days #30 tablet. Azithromycin 500 mg PO DAILY 5 Days #5 tablet 06/27/18 Benztropine Mesylate [Cogentin 1 mg Tablet] 1 mg PO QHS 30 Days #30 tablet 06/27 Budesonide/Formoterol Fumarate [Symbicort Hfa 160-4.5 Mcg Inhaler 6 gm] 2 puff IH Q12 30 Days #1 inhaler 06/27/18 Buspirone HCl [Buspar 10 mg Tablet] 10 mg PO Q12 30 Days #60 tablet 06/27/18 Clonazepam [Klonopin 1 mg Tablet] 1 mg PO Q12A 5 Days #10 tablet 06/27/18 Dextroamphetamine/Amphetamine [Adderall 30 mg Tablet] 60 mg PO BID@0800,1300 5 Days #10 tablet 06/27/18 Divalproex Sodium [Depakote ER 500 mg Tab.sr] 500 mg PO Q12 30 Days #60 tab.sr.24h 06/27/18 Furosemide [Lasix 40 mg Tablet] 40 mg PO QAM 30 Days #30 tablet 06/27/18 Guaifenesin [Robitussin Syrup 200 mg/10 ml Ud Cup] 200 mg PO Q4HP PRN 5 Days # 200 ml 06/27/18 Metoprolol Succinate [Toprol Xl 25 mg Tab.sr] 25 mg PO DAILY 30 Days #30 tab.sr.24h 06/27/18 Nicotine [Nicoderm 21 mg/24 Hr Transderm Patch] 1 each TD DAILY 14 Days #14 patch.td24 06/27/18 Olanzapine [Zyprexa 5 mg Tablet] 5 mg PO Q12 30 Days #60 tablet 06/27/18 Oxycodone HCl/Acetaminophen [Percocet 5-325 mg Tablet] 1 tab PO Q4HP PRN 5 Days #24 tablet 06/27/18 Tiotropium [place] [Spiriva Handihaler 18 mcg/dose (30 Dose)] 18 mcg IH DAILY 30 Days #1 cap.w.dev 06/27/18 Trazodone HCl [Desyrel 50 mg Tablet] 100 mg PO QHS 30 Days #30 tablet 06/27/18 History of Present Illness Patient complains of: shortness of breath History of Present Illness: GALI CHURCH JR is a 57 year old homeless male with a past medical history of congestive heart failure with an ejection fraction of 35%, moderate mitral regurgitation and pulmonary hypertension, COPD with chronic bronchitis, schizophrenia, tobacco and polysubstance abuse. Patient presents with severe shortness of breath with hypoxia requiring BiPAP. He is found to have chronic changes on chest x-ray and elevated BNP of 4000. He receives empiric antibiotics and referred to the hospitalist for admission. Patient admits noncompliance with all medications and lifestyle. He denies chest pain. (see H and P for full admission details) Hospital Course Hospital Course: 57-year-old homeless male with a past medical history significant for systolic and diastolic heart failure with an EF of 35%, pulmonary hypertension, COPD, chronic bronchitis, schizophrenia, impulse disorder, depression, tobacco use, and polysubstance abuse. Patient presented to the emergency department with severe shortness of breath was found to be hypoxic and was placed on a BiPAP machine and was treated with IV Lasix. Patient's was given nebulized pulmonary medications. Patient states that he was recently taking Adderall, this was last filled on 05/25/18. Patient states that he has been taking Xanax and is looking for a new provider for this, last filled on 05/10/18. Patient states that he has got chronic neck and back pain and is requesting opiate medications. Prior discharge list do show Percocets being used to treat his chronic pain. He was given low dose percocet for his chronic pain. Patient was stable and doing well on room air at the time of discharge. His heart failure was treated with a beta leydi, but not DELANEY due to his low normal range blood pressure. An DELANEY can be started in OP if his blood pressure can tolerate it. D/C planning was consulted to assist patient in living options, but patient rejected giving up his check. Patient had a friend that was going to allow him to stay with him at the time of discharge per his account. Patient requested discharge, and was given scripts for all of his medicines along with a script for a nebulizer machine, due to his report of having a broken machine outside of the hospital. The patient had stable vital signs and had a good O2 sat on room air at the time of discharge. His need to continue his medications and establish alf was emphasized. This patient has significant risks in treatment failure given his homeless status, and limited compliance with medical instruction, and his limited means to obtain medications and care. Physical Exam Vital Signs: Temp Pulse Resp BP Pulse Ox 98.2 F 87 17 115/65 95 06/27/18 18:08 06/27/18 18:08 06/27/18 18:08 06/27/18 18:08 06/27/18 18:08 Intake & Output 06/27/18 06/28/18 06/29/18 06:59 06:59 06:59 Intake Total 2460 620 Output Total 400 Balance 2460 220 Weight 69.7 kg Results Laboratory Results: 06/27/18 06:14 06/27/18 06:14 Impressions: Chest X-Ray 06/25/18 21:41 IMPRESSION: Chronic lung changes. Minimal left pleural effusion. Qualifiers - * PATIENT BEING DISCHARGED WITH ANY OF THE FOLLOWING DIAGNOSIS: Heart Failure HF Pt being discharged on ACEI for LVEF less than 40%?: No Reason(s) for not prescribing ACEI:: Medical Contraindication - borderline blood pressure, holding DELANEY due to this hypotension, can consider starting DELANEY in follow up with his PCP HF Pt being discharged on ARBS for LVEF less than 40%?: No Reason(s) for not prescribing ARBS:: Medical Contraindication - low blood pressure HF Pt with Afib discharged with Warfarin?: No Reason(s) for not prescribing Warfarin:: Medical Contraindication - poor follow up, high risk for harm on an anticoagulation medication. HF Pt discharged on evidence-based Beta Leydi:: Yes Plan Discharge Plan: f/u with PCP in the next 1 week requested. Time Spent: Greater than 30 Minutes
== END 2018-06-27 19:59 | disposition home or self-care (01) | DRG 291 ==
LOC: ER 21:37 → EH 23:36 → 4W 06-26 10:12 → 4S 06-26 15:58
PROVIDERS: ADMIT Family Medicine; ATTEND Family Medicine
DX: I11.0 Hypertensive heart disease with heart failure (principal); J96.21 Acute and chronic respiratory failure with hypoxia; J44.1 Chronic obstructive pulmonary disease with (acute) exacerbation; F30.9 Manic episode, unspecified; I50.43 Acute on chronic combined systolic (congestive) and diastolic (congestive) heart failure; I34.0 Nonrheumatic mitral (valve) insufficiency; I27.20 Pulmonary hypertension, unspecified; F90.9 Attention-deficit hyperactivity disorder, unspecified type; F25.9 Schizoaffective disorder, unspecified; M19.90 Unspecified osteoarthritis, unspecified site; F19.10 Other psychoactive substance abuse, uncomplicated; F17.210 Nicotine dependence, cigarettes, uncomplicated; Z59.0 Homelessness; Z91.14 Patient's other noncompliance with medication regimen
CPT/HCPCS: 36415; 71045; 80048; 80053; 80069; 80307; 81001; 82803; 83605; 83880; 84484; 85025; 85027; 85610; 87040; 87077; 87086; 87186; 93005; 93010; 94640; 94660; 94799; 96365; 96375; 99291; J0456; J0696; J1630; J1644; J1940; J1956; J2930; J3475; J3490; J7060; J7620

== ENCOUNTER 2018-07-01 01:05 | Inpatient (IN) | payer MEDICAID ==
--- NOTE | 2018-07-01 01:10 | ER Document Report ---
ED General - General Stated Complaint: SHORT OF BREATH Time Seen by Provider: 07/01/18 01:09 Cannot obtain history due to: Unstable vital signs Notes: Patient is a 58-year-old male with a past medical history of COPD, chronic respiratory failure, ongoing tobacco abuse, chronic opiate dependence, homelessness who presents by EMS with respiratory distress. History is limited as the patient is in distress at time of presentation unable to provide details. EMS states that they were contacted and found the patient to be saturating in the mid 80s. They state that he was in severe distress at time of their arrival but has improved with their treatments in route to the hospital. Patient was discharged from the hospital 3 days ago, review of records shows that he has a history of noncompliance and refusal of social studies teacher. TRAVEL OUTSIDE OF THE [place] IN LAST 30 DAYS: No - Related Data Allergies/Adverse Reactions: No Known Allergies Allergy (Verified 05/29/18 11:11) Past Medical History - General Information source: Patient - Social History Smoking Status: Current Every Day Smoker Frequency of alcohol use: Occasional Drug Abuse: None Lives with: Homeless Family History: CAD, Hyperlipidemia, Hypertension - Past Medical History Cardiac Medical History: Reports: Hx Congestive Heart Failure, Hx Coronary Artery Disease, Hx Heart Attack - History of, Hx Hypertension Denies: Hx Hypercholesterolemia Pulmonary Medical History: Reports: Hx Bronchitis, Hx COPD, Hx Respiratory Failure Neurological Medical History: Reports: Hx Seizures - Seizures when drinking states he has not drank in 16 years Endocrine Medical History: Denies: Hx Diabetes Mellitus Type 1, Hx Diabetes Mellitus Type 2, Hx Hyperthyroidism, Hx Hypothyroidism Renal/ Medical History: Denies: Hx Peritoneal Dialysis GI Medical History: Denies: Hx Cirrhosis, Hx Gastroesophageal Reflux Disease, Hx Hepatitis Musculoskeletal Medical History: Reports Hx Arthritis, Reports Hx Musculoskeletal Deformity - degenerative disc disease, Reports Hx Musculoskeletal Trauma Psychiatric Medical History: Reports: Hx Attention Deficit Hyperactivity Disorder, Hx Bipolar Disorder, Hx Depression - major, Hx Schizoaffective Disorder Traumatic Medical History: Reports: Hx Fractures, Hx Spine Fracture - States "back in 2 places" Infectious Medical History: Denies: Hx Hepatitis Review of Systems - Review of Systems Notes: Constitutional: Negative for fever. HENT: Negative for sore throat. Eyes: Negative for visual changes. Cardiovascular: Negative for chest pain. Respiratory: Positive for shortness of breath. Gastrointestinal: Negative for abdominal pain, vomiting or diarrhea. Genitourinary: Negative for dysuria. Musculoskeletal: Negative for back pain. Skin: Negative for rash. Neurological: Negative for headaches, weakness or numbness. 10 point ROS negative except as marked above and in HPI. Physical Exam - Vital signs Vitals: Pulse Ox 100 07/01/18 01:08 Interpretation: Tachycardic, Hypoxic, Tachypneic Notes: PHYSICAL EXAMINATION: GENERAL: Appears in moderate to severe respiratory distress, visibly uncomfortable HEAD: Atraumatic, normocephalic. EYES: Pupils equal round and reactive to light, extraocular movements intact, sclera anicteric, conjunctiva are normal. ENT: nares patent, oropharynx clear without exudates. Moderately dry mucous membranes. NECK: Normal range of motion, supple without lymphadenopathy LUNGS: On CPAP acceptable air movement in all lung mccarthy, diffuse expiratory wheezing with prolonged respiratory phase. Moderate respiratory distress currently breathing at 35 times per minute. HEART: Regular tachycardia without murmurs ABDOMEN: Soft, nontender, normoactive bowel sounds. No guarding, no rebound. No masses appreciated. EXTREMITIES: Normal range of motion, no pitting or edema. No cyanosis. NEUROLOGICAL: No focal neurological deficits. Moves all extremities spontaneously and on command. PSYCH: Mildly somnolent SKIN: Warm, Dry, normal turgor, no rashes or lesions noted. Course - Re-evaluation Re-evalutation: 07/01/18 01:09 Patient presents in acute respiratory distress, breathing proximal with 35 times per minute on CPAP by EMS has received 3 nebulizers prior to arrival, 125 mg of Solu-Medrol prior to arrival. He can does continue to smoke. On initial examination patient does have relatively acceptable air movement in all lung mccarthy with CPAP in place. He does have coarse expiratory wheezing with prolonged respiratory phase in all mccarthy. He was initially saturating 88% per EMS on room air and does not normally require segmental oxygen. 2 g of magnesium will be administered. Will reinitiate continuous albuterol nebulizers through in-line BiPAP. Stat portal chest x-ray, labs, blood gas will be obtained. Patient is critically ill due to his respiratory distress and is at risk for respiratory decompensation and need for airway intervention. He will require frequent reassessments. 07/01/18 02:14 I have reassessed the patient on multiple occasions. Patient's work of breathing did markedly improve with our interventions. I did attempt to remove patient off BiPAP but unfortunately this did result in relatively rapid decrease in his pulse oximetry from 100% on 40% FiO2 down to 89% on room air. Of note when patient was discharged during his most recent hospitalization he was noted to be 97-98% on room air. His venous blood gas did show a mild respiratory acidosis with elevated PCO2. He will therefore be placed back on BiPAP with ongoing in-line nebs. Chest x-ray without any evidence of a pneumothorax or any acute infiltrates. Anticipate that the patient will require readmission and will discuss with the hospitalist for further assistance. - Vital Signs Vital signs: Temp Pulse Resp BP Pulse Ox 18 129/84 H 95 07/01/18 02:15 07/01/18 02:15 07/01/18 02:15 - Laboratory Result Diagrams: 07/01/18 01:10 07/01/18 01:10 Laboratory results interpreted by me: 07/01/18 07/01/18 07/01/18 01:10 01:10 01:10 RDW 15.1 H Seg Neutrophils % 41.4 L Eosinophils % 20.7 H Absolute Eosinophils 1.8 H VBG pH 7.28 L VBG pCO2 69.3 H* VBG HCO3 32.1 H Glucose 113 H - Diagnostic Test Radiology reviewed: Image reviewed, Reports reviewed Radiology results interpreted by me: 07/01/18 02:15 Chest x-ray: No acute infiltrate or pneumothorax - EKG Interpretation by Me Additional EKG results interpreted by me: 07/01/18 02:57 Sinus rhythm, intermittent PVCs. No ST elevations or depressions. QTC is 463. Critical Care Note - Critical Care Note Total time excluding time spent on procedures (mins): 40 Comments: Critical care time spent obtaining history from patient or surrogate, discussions with consultants, development of treatment plan with patient or surrogate, evaluation of patient's response to treatment, examination of patient , ordering and performing treatments and interventions, ordering and review of laboratory studies, re-evaluation of patient's condition, ordering and review of radiographic studies and review of old charts Discharge - Discharge Clinical Impression: Respiratory distress, COPD exacerbation, Acute on chronic respiratory failure with hypercapnia, Hypoxia Condition: Fair Disposition: ADMITTED INPATIENT Admitting Provider: Hospitalist Unit Admitted: Telemetry Referrals: MELONIE WESTBROOK PA-C [Primary Care Provider] - Follow up as needed
[2018-07-01] MEDS ORDERED: ALBUTEROL SULFATE 0.083% NEB 2.5 MG/3 ML AMPUL NEB ONE (01:11)
[2018-07-01] MEDS: MAGNESIUM SULFATE/D5W 1 GM/100 ML RTUPB IV SCH ×2 (01:11→01:42)
[2018-07-01] MEDS ORDERED: NICOTINE 21 MG/24 HR PATCH.TD24 TD ONE (01:13)
[2018-07-01 01:35] LABS: VENOUS BLOOD BASE EXCESS 2.9 mmol/L; VENOUS BLOOD HCO3 32.1 mmol/L (20-32); VENOUS BLOOD PH 7.28 (7.30-7.42)
[2018-07-01 01:37] LABS: VENOUS BLOOD PCO2 69.3 mmHg (35-63)
[2018-07-01 01:45] LABS: ABSOLUTE EOSINOPHILS # (AUTO) 1.8 10^3/uL (0.0-0.6); ABSOLUTE LYMPHOCYTES (AUTO) 2.5 10^3/uL (0.5-4.7); ABSOLUTE MONOCYTES (AUTO) 0.9 10^3/uL (0.1-1.4); ABSOLUTE NEUT (AUTO) 3.7 10^3/uL (1.7-8.2); BASOPHILS % (AUTO) 0.1 % (0-2); EOSINOPHILS % (AUTO) 20.7 % (0-6); HEMATOCRIT 41.4 % (37.9-51.0); HEMOGLOBIN 14.1 g/dL (13.5-17.0); LYMPHOCYTES % (AUTO) 27.6 % (13-45); MEAN CORPUSCULAR HEMOGLOBIN 30.3 pg (27.0-33.4); MEAN CORPUSCULAR VOLUME 89 fl (80-97); MONOCYTES % (AUTO) 10.2 % (3-13); PLATELET COUNT 213 10^3/uL (150-450); RED BLOOD COUNT 4.65 10^6/uL (4.35-5.55); RED CELL DISTRIBUTION WIDTH 15.1 % (11.5-14.0); SEGMENTED NEUTROPHILS % (AUTO) 41.4 % (42-78); TOTAL CELLS COUNTED % (AUTO) 100 %; WHITE BLOOD COUNT 8.9 10^3/uL (4.0-10.5)
[2018-07-01] MEDS ORDERED: IPRATROPIUM/ALBUTEROL 0.5-2.5 MG/3 ML AMPUL NEB ONE (02:09)
--- NOTE | 2018-07-01 02:10 | RADIOLOGY REPORT (SQ) ---
Chest single view on 07/01/2018 at 1:49 AM CLINICAL INDICATION: Shortness of breath COMPARISON: 06/25/2018 FINDINGS: The lungs are clear. There is slight elevation of the right hemidiaphragm. Cardiac, hilar and mediastinal contours are within normal limits. Pulmonary vascularity is within normal limits. No bony abnormality is noted. IMPRESSION: No active disease.
[2018-07-01 02:19] LABS: ALANINE AMINOTRANSFERASE 24 U/L (21-72); ALBUMIN 4.2 g/dL (3.5-5.0); ALKALINE PHOSPHATASE 55 U/L (38-126); ANION GAP 12 (5-19); ASPARTATE AMINO TRANSFERASE 22 U/L (17-59); BILIRUBIN,DIRECT 0.3 mg/dL (0.0-0.4); BILIRUBIN,TOTAL 0.4 mg/dL (0.2-1.3); BLOOD UREA NITROGEN 19 mg/dL (7-20); CALCIUM 9.3 mg/dL (8.4-10.2); CARBON DIOXIDE 28 mmol/L (22-30); CHLORIDE 101 mmol/L (98-107); GLUCOSE 113 mg/dL (75-110); POTASSIUM 3.9 mmol/L (3.6-5.0); SODIUM 140.9 mmol/L (137-145); TOTAL PROTEIN 6.8 g/dL (6.3-8.2)
[2018-07-01 02:28] LABS: TROPONIN I 0.013 ng/mL
[2018-07-01 02:37] LABS: VENOUS BLOOD BASE EXCESS -0.2 mmol/L; VENOUS BLOOD HCO3 25.6 mmol/L (20-32); VENOUS BLOOD PCO2 46.1 mmHg (35-63); VENOUS BLOOD PH 7.36 (7.30-7.42)
--- NOTE | 2018-07-01 03:32 | PDOC H&P ---
History of Present Illness Admission Date/PCP: MELONIE WESTBROOK PA-C Patient complains of: Shortness of breath History of Present Illness: GALI CHURCH JR is a 58 year old male who is homeless with a past medical history of congestive heart failure with an ejection fraction of 35%, moderate mitral regurgitation and pulmonary hypertension, COPD with chronic bronchitis, schizophrenia, tobacco dependence and ongoing polysubstance abuse. Patient presents with acute shortness of breath denying chest pain palpitations nausea and vomiting in the emergency room he is found to be hypoxic which improved with supplemental oxygen but when discontinued rapidly drops and remains in the mid 80s. Chest x-ray reveals chronic changes, patient appears intoxicated. Evaluation of discharge summary from 48 hours ago includes a prescription for Percocet and Klonopin however his prescription bottles are empty. Past Medical History Cardiac Medical History: Reports: Congestive Heart Failure, Coronary Artery Disease, Myocardial Infarction - History of, Hypertension Denies: Hyperlipidema Pulmonary Medical History: Reports: Bronchitis, Chronic Obstructive Pulmonary Disease (COPD), Respiratory Failure Neurological Medical History: Reports: Seizures - Seizures when drinking states he has not drank in 16 years Endocrine Medical History: Denies: Diabetes Mellitus Type 1, Diabetes Mellitus Type 2, Hyperthyroidism, Hypothyroidism GI Medical History: Denies: Cirrhosis, Gastroesophageal Reflux Disease, Hepatitis Musculoskeltal Medical History: Reports: Arthritis Psychiatric Medical History: Reports: Attention Deficit Hyperactivity Disorder, Bipolar Disorder, Depression - major, Schizoaffective Disorder, Tobacco Dependency Social History Information Source: Patient, [facility] Records Lives with: Homeless Smoking Status: Current Every Day Smoker Frequency of Alcohol Use: None Hx Recreational Drug Use: No Drugs: Cocaine, Marijuana, Other - History of polysubstance abuse though he states he has not used over a month. Hx Prescription Drug Abuse: Yes - Advance Directive Resuscitation Status: Full Code Family History Family History: CAD, Hyperlipidemia, Hypertension Parental Family History Reviewed: Yes Children Family History Reviewed: Yes Sibling(s) Family History Reviewed.: Yes Medication/Allergy Home Medications: Albuterol Sulfate [Albuterol Sulfate 2.5mg/3 mL] 1 vial IH Q4 PRN 7 Days #42 vial 06/27/18 Albuterol Sulfate [Proair HFA] 2 puff IH Q4HP PRN 30 Days #1 hfa.aer.ad Aspirin [Adult Low Dose Aspirin EC] 81 mg PO DAILY 30 Days #30 tablet.dr Azithromycin 500 mg PO DAILY 5 Days #5 tablet 06/27/18 Benztropine Mesylate [Cogentin 1 mg Tablet] 1 mg PO QHS 30 Days #30 tablet 06/27 Budesonide/Formoterol Fumarate [Symbicort Hfa 160-4.5 Mcg Inhaler 6 gm] 2 puff IH Q12 30 Days #1 inhaler 06/27/18 Buspirone HCl [Buspar 10 mg Tablet] 10 mg PO Q12 30 Days #60 tablet 06/27/18 Clonazepam [Klonopin 1 mg Tablet] 1 mg PO Q12A 5 Days #10 tablet 06/27/18 Dextroamphetamine/Amphetamine [Adderall 30 mg Tablet] 60 mg PO BID@0800,1300 5 Days #10 tablet 06/27/18 Divalproex Sodium [Depakote ER 500 mg Tab.sr] 500 mg PO Q12 30 Days #60 tab.sr.24h 06/27/18 Furosemide [Lasix 40 mg Tablet] 40 mg PO QAM 30 Days #30 tablet 06/27/18 Guaifenesin [Robitussin Syrup 200 mg/10 ml Ud Cup] 200 mg PO Q4HP PRN 5 Days # 200 ml 06/27/18 Metoprolol Succinate [Toprol Xl 25 mg Tab.sr] 25 mg PO DAILY 30 Days #30 tab.sr.24h 06/27/18 Nicotine [Nicoderm 21 mg/24 Hr Transderm Patch] 1 each TD DAILY 14 Days #14 patch.td24 06/27/18 Olanzapine [Zyprexa 5 mg Tablet] 5 mg PO Q12 30 Days #60 tablet 06/27/18 Oxycodone HCl/Acetaminophen [Percocet 5-325 mg Tablet] 1 tab PO Q4HP PRN 5 Days #24 tablet 06/27/18 Tiotropium [place] [Spiriva Handihaler 18 mcg/dose (30 Dose)] 18 mcg IH DAILY 30 Days #1 cap.w.dev 06/27/18 Trazodone HCl [Desyrel 50 mg Tablet] 100 mg PO QHS 30 Days #30 tablet 06/27/18 Allergies/Adverse Reactions: No Known Allergies Allergy (Verified 05/29/18 11:11) Review of Systems ROS unobtainable: Due to mental status, Other Physical Exam Vital Signs: Temp Pulse Resp BP Pulse Ox 18 129/84 H 95 07/01/18 02:15 07/01/18 02:15 07/01/18 02:15 Intake & Output 06/29/18 06/30/18 07/01/18 11:59 11:59 11:59 Intake Total 200 Balance 200 General appearance: PRESENT: cooperative, disheveled, mild distress, thin. ABSENT: hard of hearing Head exam: PRESENT: atraumatic, normocephalic Eye exam: PRESENT: conjunctiva pink, EOMI, PERRLA. ABSENT: scleral icterus Ear exam: PRESENT: normal external ear exam Mouth exam: PRESENT: moist, tongue midline Neck exam: ABSENT: carotid bruit, JVD, lymphadenopathy, thyromegaly Respiratory exam: PRESENT: accessory muscle use, crackles, rales, retraction, symmetrical, tachypnea, wheezes Cardiovascular exam: PRESENT: RRR. ABSENT: diastolic murmur, rubs, systolic murmur Pulses: PRESENT: normal dorsalis pedis pul Vascular exam: PRESENT: normal capillary refill GI/Abdominal exam: PRESENT: normal bowel sounds, soft. ABSENT: distended, guarding, mass, organolmegaly, rebound, tenderness Rectal exam: PRESENT: deferred Extremities exam: PRESENT: full ROM. ABSENT: calf tenderness, clubbing, pedal edema Neurological exam: PRESENT: alert, awake, oriented to person, oriented to place , oriented to time, oriented to situation, CN II-XII grossly intact. ABSENT: motor sensory deficit Psychiatric exam: PRESENT: appropriate affect, unusual affect. ABSENT: homicidal ideation, suicidal ideation Skin exam: PRESENT: dry, intact, warm. ABSENT: cyanosis, rash Results Laboratory Results: 07/01/18 01:10 07/01/18 01:10 07/01/18 07/01/18 07/01/18 01:10 01:10 01:10 WBC 8.9 RBC 4.65 Hgb 14.1 Hct 41.4 MCV 89 MCH 30.3 MCHC 34.0 RDW 15.1 H Plt Count 213 Seg Neutrophils % 41.4 L Lymphocytes % 27.6 Monocytes % 10.2 Eosinophils % 20.7 H Basophils % 0.1 Absolute Neutrophils 3.7 Absolute Lymphocytes 2.5 Absolute Monocytes 0.9 Absolute Eosinophils 1.8 H Absolute Basophils 0.0 VBG pH 7.28 L VBG pCO2 69.3 H* VBG HCO3 32.1 H VBG Base Excess 2.9 Sodium 140.9 Potassium 3.9 Chloride 101 Carbon Dioxide 28 Anion Gap 12 BUN 19 Creatinine 0.86 Est GFR ( Amer) > 60 Est GFR (Non-Af Amer) > 60 Glucose 113 H Calcium 9.3 Total Bilirubin 0.4 AST 22 ALT 24 Alkaline Phosphatase 55 Total Protein 6.8 Albumin 4.2 07/01/18 02:23 WBC RBC Hgb Hct MCV MCH MCHC RDW Plt Count Seg Neutrophils % Lymphocytes % Monocytes % Eosinophils % Basophils % Absolute Neutrophils Absolute Lymphocytes Absolute Monocytes Absolute Eosinophils Absolute Basophils VBG pH 7.36 VBG pCO2 46.1 VBG HCO3 25.6 VBG Base Excess -0.2 Sodium Potassium Chloride Carbon Dioxide Anion Gap BUN Creatinine Est GFR ( Amer) Est GFR (Non-Af Amer) Glucose Calcium Total Bilirubin AST ALT Alkaline Phosphatase Total Protein Albumin 07/01/18 01:10 Troponin I 0.013 NT-Pro-B Natriuret Pep 774 Impressions: Chest X-Ray 07/01/18 01:10 IMPRESSION: No active disease. Assessment & Plan - Diagnosis (1) COPD exacerbation Is this a current diagnosis for this admission?: Yes Plan: BiPAP, oxygen, albuterol and Atrovent, prednisone and tobacco avoidance (2) Acute bronchitis Is this a current diagnosis for this admission?: Yes Plan: Flutter valve, prednisone, empiric antibiotics (3) Anxiety Is this a current diagnosis for this admission?: Yes Plan: Trazodone as needed, limit Klonopin (4) Chronic pain Is this a current diagnosis for this admission?: Yes Plan: Avoid narcotics unless develops withdrawal, given strong concern for opiate diversion following discharge 24 hours ago with prescription for Percocet which is now empty. - Time Time Spent: 30 to 50 Minutes
[2018-07-01] MEDS: AZITHROMYCIN 250 MG TABLET PO SCH (04:51)
--- NOTE | 2018-07-01 06:13 | EKG REPORT ---
SEVERITY:- ABNORMAL ECG - SINUS RHYTHM VENTRICULAR BIGEMINY PROBABLE LVH WITH SECONDARY REPOL ABNRM LATERAL INFARCT, AGE INDETERMINATE : Confirmed by: Enrike Sheridan MD 01-Jul-2018 06:12:55
[2018-07-01] MEDS: BUSPIRONE HCL 10 MG TABLET PO SCH ×2 (10:07→23:30)
[2018-07-01] MEDS: DIVALPROEX SODIUM 500 MG TAB.SR.24H PO SCH ×2 (10:08→23:26)
[2018-07-01] MEDS: OLANZAPINE 5 MG TABLET PO SCH ×2 (10:08→23:31)
[2018-07-01] MEDS: METOPROLOL SUCCINATE 25 MG TAB.SR.24H PO SCH (10:08)
[2018-07-01] MEDS: ASPIRIN 81 MG TABLET, ENT COATED PO SCH (10:08)
[2018-07-01] MEDS: BUDESONIDE/FORMOTEROL 160-4.5 MCG 60 PUFF/6 GM MDI IH SCH ×2 (10:12→23:28)
--- NOTE | 2018-07-01 13:53 | Progress Note ---
Provider Note Provider Note: This is a 58 years old male patient with history of frequent admission to this hospital with similar complaint presented with chief complaint of shortness of breath. Of note patient discharged 48 hours ago after he was treated for COPD exacerbation. Patient is opioid analgesics drug seeker. I seen and accept this patient.
[2018-07-01] MEDS: ACETAMINOPHEN 325 MG TABLET PO PRN (17:05)
[2018-07-01] MEDS: IPRATROPIUM/ALBUTEROL 0.5-2.5 MG/3 ML AMPUL NEB SCH (19:34)
[2018-07-01] MEDS: FLUTICASONE NASAL SPRAY 50 MCG/SPRY 120 SPRAY/16 GM NASL SCH (23:26)
[2018-07-01] MEDS: BENZTROPINE MESYLATE 1 MG TABLET PO SCH (23:27)
[2018-07-01] MEDS: HEPARIN SOD (PORCINE) 5,000 UNIT/ML 1 ML SYRINGE SUBCUT SCH (23:28)
[2018-07-02] MEDS: IPRATROPIUM/ALBUTEROL 0.5-2.5 MG/3 ML AMPUL NEB SCH ×4 (01:43→19:41)
[2018-07-02] MEDS: AZITHROMYCIN 250 MG TABLET PO SCH (05:53)
[2018-07-02] MEDS: HEPARIN SOD (PORCINE) 5,000 UNIT/ML 1 ML SYRINGE SUBCUT SCH ×3 (05:57→21:19)
[2018-07-02] MEDS: FLUTICASONE NASAL SPRAY 50 MCG/SPRY 120 SPRAY/16 GM NASL SCH ×2 (09:58→21:18)
[2018-07-02] MEDS: BUDESONIDE/FORMOTEROL 160-4.5 MCG 60 PUFF/6 GM MDI IH SCH ×2 (09:58→21:20)
[2018-07-02] MEDS: DIVALPROEX SODIUM 500 MG TAB.SR.24H PO SCH ×2 (09:58→21:18)
[2018-07-02] MEDS: BUSPIRONE HCL 10 MG TABLET PO SCH ×2 (09:59→21:18)
[2018-07-02] MEDS: ASPIRIN 81 MG TABLET, ENT COATED PO SCH (09:59)
[2018-07-02] MEDS: OLANZAPINE 5 MG TABLET PO SCH ×2 (09:59→21:18)
[2018-07-02] MEDS: METOPROLOL SUCCINATE 25 MG TAB.SR.24H PO SCH (09:59)
[2018-07-02] MEDS: PREDNISONE 20 MG TABLET PO SCH ×2 (10:00→18:40)
--- NOTE | 2018-07-02 10:49 | Physician Advisory Note ---
Physician Advisor ProgressNote .: Pursuant to the plan for [facility], I have reviewed the medical record for this patient. Physician Advisor Statement: Nice documentation of Chronic (Hypercapneic) Resp Failure & Acute (Hypoxemic) Resp FAilure, w/exam&hx evidence. (Baseline CO2 about 58.) Also the suspicion of Acute Bronchitis, being tx'd with abx. Please consider documenting, if you agree: 1. "Chronic systolic CHF w/EF 35%" (if word "systolic" is not documented, a query will come later, per qa reviewer) 2. "COPD with acute exacerbation, evidenced by SOB acutely increased" (if only "COPD" is documented, it indicates the pt's COPD is at baseline) 3. Medical necessity: each day, the clinical reason(s) pt continues to need to be in hospital Status: 58yo Medicaid pt w/COPD, chr hypercapneic resp failure, chr syst CHF w/ EF 35%, mod MR, pulm HTN, CAD, HTN, past (?or current?) alcohol dependence, more recent (or current?) drug abuse w/cocaine & THC (?& opiates/benzos?), opiate dependence, ongoing tobacco abuse, noncompliance, ADHD, Bipolar & schizoaffective d/o.s, & homelessness, presented 2-3 days after last d/c, appearing intoxicated, w/severe resp distress & acute resp failure requiring Bipap & high level O2, with Percocet/Klonopin Rx's already empty from last d/c. He was tx'd extremely aggressively, with good effect. This AM, VS look reasonable, O2 sats high 90s on 2L O2, no repeat labs noted. RT this AM documents intermittent cough, increased aeration & wheezes s/p neb. Attg has approp.ly ordered ambulatory O2 sats this AM. - If he is not fully stabilized this AM & safe for d/c (with or w/o O2), then please document ongoing clinical concerns/issues, & may change to Inpatient status. Thanks! CK
--- NOTE | 2018-07-02 18:22 | PDOC PROGRESS REPORT ---
Subjective Progress Note for:: 07/02/18 Subjective:: The patient is resting quietly. He is requesting narcotics for his chronic back pain that he takes tylenol for at home. Reason For Visit: ACUTE BRONCHITIS,COPD EXACERBATION,CHRONIC PAIN Physical Exam Vital Signs: Temp Pulse Resp BP Pulse Ox 98.6 F 96 16 121/60 98 07/02/18 12:00 07/02/18 14:00 07/02/18 13:19 07/02/18 12:00 07/02/18 16:00 General appearance: PRESENT: cooperative, other Respiratory exam: PRESENT: other - No increased work of breathing. The patient is saturating 98-100% on 2L. order for weaning was placed this morning. Still on 2L.. ABSENT: rales, rhonchi, wheezes Cardiovascular exam: PRESENT: RRR. ABSENT: gallop, rubs, systolic murmur GI/Abdominal exam: PRESENT: normal bowel sounds, soft. ABSENT: hernia, mass, organolmegaly, tenderness Rectal exam: PRESENT: deferred Neurological exam: PRESENT: alert, awake, oriented to person, oriented to place , CN II-XII grossly intact Psychiatric exam: PRESENT: appropriate affect, normal mood Skin exam: PRESENT: dry, intact, warm Results Impressions: Chest X-Ray 07/01/18 01:10 IMPRESSION: No active disease. Assessment & Plan - Diagnosis (1) COPD exacerbation Is this a current diagnosis for this admission?: Yes Plan: Pt was admitted with increased oxygen requirements. Wean O2 and check ambulatory O2 sats. (2) Acute bronchitis Is this a current diagnosis for this admission?: Yes Plan: Azithromax, nebulizer treatments, and steroids. (4) Chronic pain Qualifiers: Chronic pain type: chronic pain syndrome Qualified Code(s): G89.4 - Chronic pain syndrome Is this a current diagnosis for this admission?: Yes Plan: Asking for narcotics. - Time Time Spent with patient: 25-34 minutes Medications reviewed and adjusted accordingly: Yes Anticipated discharge: Home Within: within 24 hours
[2018-07-02] MEDS: BENZTROPINE MESYLATE 1 MG TABLET PO SCH (21:18)
[2018-07-03] MEDS: IPRATROPIUM/ALBUTEROL 0.5-2.5 MG/3 ML AMPUL NEB SCH ×3 (01:14→13:22)
[2018-07-03] MEDS: AZITHROMYCIN 250 MG TABLET PO SCH (07:06)
[2018-07-03] MEDS: HEPARIN SOD (PORCINE) 5,000 UNIT/ML 1 ML SYRINGE SUBCUT SCH ×2 (07:07→13:27)
[2018-07-03] MEDS ORDERED: NICOTINE 21 MG/24 HR PATCH.TD24 TD SCH (10:00)
[2018-07-03] MEDS: OLANZAPINE 5 MG TABLET PO SCH (10:03)
[2018-07-03] MEDS: BUSPIRONE HCL 10 MG TABLET PO SCH (10:03)
[2018-07-03] MEDS: ASPIRIN 81 MG TABLET, ENT COATED PO SCH (10:03)
[2018-07-03] MEDS: METOPROLOL SUCCINATE 25 MG TAB.SR.24H PO SCH (10:03)
[2018-07-03] MEDS: PREDNISONE 20 MG TABLET PO SCH (10:03)
[2018-07-03] MEDS: ACETAMINOPHEN 325 MG TABLET PO PRN (10:03)
[2018-07-03] MEDS: BUDESONIDE/FORMOTEROL 160-4.5 MCG 60 PUFF/6 GM MDI IH SCH (10:03)
[2018-07-03] MEDS: DIVALPROEX SODIUM 500 MG TAB.SR.24H PO SCH (10:03)
[2018-07-03] MEDS: FLUTICASONE NASAL SPRAY 50 MCG/SPRY 120 SPRAY/16 GM NASL SCH (10:04)
[2018-07-03 15:13] VITALS: BP 129/57
--- NOTE | 2018-07-03 16:22 | PDOC DISCHARGE SUMMARY ---
General - Admit/Disc Date/PCP Admission Date/Primary Care Provider: 07/02/18 15:02 MELONIE WESTBROOK PA-C Discharge Date: 07/03/18 - Discharge Diagnosis (1) COPD exacerbation Is this a current diagnosis for this admission?: Yes (2) Acute bronchitis Is this a current diagnosis for this admission?: Yes (4) Chronic pain Is this a current diagnosis for this admission?: Yes - Additional Information Resuscitation Status: Full Code Discharge Diet: Regular Discharge Activity: Activity As Tolerated, No Driving Prescriptions: Azithromycin [Zithromax 250 mg Tablet] 500 mg PO DAILY@0400 3 Days #6 tablet Budesonide/Formoterol Fumarate [Symbicort HFA 160-4.5 mcg Inhaler 6 gm] 2 puff IH Q12 #1 inhaler Metoprolol Succinate [Toprol Xl 25 mg Tab.sr] 25 mg PO DAILY #30 tab.sr.24h Prednisone [Deltasone 10 mg Tablet] 10 mg PO ASDIR PRN #25 tablet PRN Reason: Home Medications: Albuterol Sulfate [Proair HFA] 2 puff IH Q4HP PRN 30 Days #1 hfa.aer.ad Aspirin [Adult Low Dose Aspirin EC] 81 mg PO DAILY 30 Days #30 tablet.dr Benztropine Mesylate [Cogentin 1 mg Tablet] 1 mg PO QHS 30 Days #30 tablet 06/27 Buspirone HCl [Buspar 10 mg Tablet] 10 mg PO Q12 30 Days #60 tablet 06/27/18 Divalproex Sodium [Depakote ER 500 mg Tab.sr] 500 mg PO Q12 30 Days #60 tab.sr.24h 06/27/18 Nicotine [Nicoderm 21 mg/24 Hr Transderm Patch] 1 each TD DAILY 14 Days #14 patch.td24 06/27/18 Olanzapine [Zyprexa 5 mg Tablet] 5 mg PO Q12 30 Days #60 tablet 06/27/18 Tiotropium [place] [Spiriva Handihaler 18 mcg/dose (30 Dose)] 18 mcg IH DAILY 30 Days #1 cap.w.dev 06/27/18 Acetaminophen [Tylenol 325 mg Tablet] 650 mg PO Q6HP PRN tablet 07/03/18 Azithromycin [Zithromax 250 mg Tablet] 500 mg PO DAILY@0400 3 Days #6 tablet Budesonide/Formoterol Fumarate [Symbicort HFA 160-4.5 mcg Inhaler 6 gm] 2 puff IH Q12 #1 inhaler 07/03/18 Metoprolol Succinate [Toprol Xl 25 mg Tab.sr] 25 mg PO DAILY #30 tab.sr.24h Prednisone [Deltasone 10 mg Tablet] 10 mg PO ASDIR PRN #25 tablet 07/03/18 History of Present Illness History of Present Illness: GALI CHURCH JR is a 58 year old male Hospital Course Hospital Course: The patient was admitted to a medical bed. He was given IV antibiotics, nebulizer treatments, and steroids. His respiratory status has improved to baseline. He has also had complaints of his chronic back pain for which he takes tylenol at home. He has received tylenol for that here. He is ambyulating in the halls on room air with o2 saturations of 90-93%. Physical Exam Vital Signs: Temp Pulse Resp BP Pulse Ox 98.2 F 89 16 129/57 H 98 07/03/18 15:11 07/03/18 15:11 07/03/18 15:11 07/03/18 15:11 07/03/18 15:11 Intake & Output 07/02/18 07/03/18 07/04/18 06:59 06:59 06:59 Intake Total 717 Balance 717 Weight 78.4 kg General appearance: PRESENT: no acute distress, cooperative, thin Respiratory exam: PRESENT: other - Diminished breath sounds bilaterally. No increased work of breathing.. ABSENT: rales, rhonchi, wheezes Cardiovascular exam: PRESENT: RRR. ABSENT: gallop, rubs, systolic murmur GI/Abdominal exam: PRESENT: normal bowel sounds, soft. ABSENT: distended, hernia, mass, tenderness Rectal exam: PRESENT: deferred Extremities exam: ABSENT: calf tenderness, joint swelling, tenderness Musculoskeletal exam: ABSENT: deformity, dislocation, normal inspection Neurological exam: PRESENT: alert, awake, oriented to person, oriented to place , oriented to time, oriented to situation, CN II-XII grossly intact. ABSENT: motor sensory deficit Psychiatric exam: PRESENT: appropriate affect, normal mood Skin exam: PRESENT: dry, intact, warm Results Impressions: Chest X-Ray 07/01/18 01:10 IMPRESSION: No active disease. Qualifiers - * PATIENT BEING DISCHARGED WITH ANY OF THE FOLLOWING DIAGNOSIS: No Plan Discharge Plan: Discharge to home. Time Spent: Greater than 30 Minutes
== END 2018-07-03 17:17 | disposition home or self-care (01) | DRG 191 ==
LOC: ER 01:05 → EH 03:27 → INTOOBSV 03:27 → 4N 06:30 → OBSVTOIN 07-02 15:02
PROVIDERS: ADMIT Internal Medicine; ATTEND Internal Medicine
PROC: 5A09357 Assistance with Respiratory Ventilation, Less than 24 Consecutive Hours, Continuous Positive Airway Pressure (ICD-10-PCS; principal; 2018-07-01)
DX: J44.1 Chronic obstructive pulmonary disease with (acute) exacerbation (principal); F11.20 Opioid dependence, uncomplicated; J96.11 Chronic respiratory failure with hypoxia; J20.9 Acute bronchitis, unspecified; J44.0 Chronic obstructive pulmonary disease with (acute) lower respiratory infection; G89.4 Chronic pain syndrome; F41.9 Anxiety disorder, unspecified; F17.200 Nicotine dependence, unspecified, uncomplicated; I11.0 Hypertensive heart disease with heart failure; I50.9 Heart failure, unspecified; I34.0 Nonrheumatic mitral (valve) insufficiency; F20.9 Schizophrenia, unspecified; I27.20 Pulmonary hypertension, unspecified; Z76.5 Malingerer [conscious simulation]; I25.2 Old myocardial infarction; M19.90 Unspecified osteoarthritis, unspecified site; F31.9 Bipolar disorder, unspecified; F90.9 Attention-deficit hyperactivity disorder, unspecified type; M54.9 Dorsalgia, unspecified; Z82.49 Family history of ischemic heart disease and other diseases of the circulatory system; Z79.82 Long term (current) use of aspirin; Z79.899 Other long term (current) drug therapy
CPT/HCPCS: 36415; 71045; 80053; 82803; 83880; 84484; 85025; 93005; 93010; 94640; 94660; 96365; 99291; J1644; J3475; J3490; J7512; J7620

== ENCOUNTER 2018-08-13 08:11 | Emergency (ER) | payer MEDICAID ==
[2018-08-13] MEDS ORDERED: IPRATROPIUM/ALBUTEROL 0.5-2.5 MG/3 ML AMPUL NEB ONE (08:39)
[2018-08-13 08:44] LABS: ABSOLUTE EOSINOPHILS # (AUTO) 0.6 10^3/uL (0.0-0.6); ABSOLUTE LYMPHOCYTES (AUTO) 1.1 10^3/uL (0.5-4.7); ABSOLUTE MONOCYTES (AUTO) 0.5 10^3/uL (0.1-1.4); ABSOLUTE NEUT (AUTO) 2.9 10^3/uL (1.7-8.2); EOSINOPHILS % (AUTO) 11.2 % (0-6); HEMATOCRIT 41.5 % (37.9-51.0); HEMOGLOBIN 14.1 g/dL (13.5-17.0); LYMPHOCYTES % (AUTO) 22.4 % (13-45); MEAN CORPUSCULAR HEMOGLOBIN 30.3 pg (27.0-33.4); MEAN CORPUSCULAR HGB CONC 33.9 g/dL (32.0-36.0); MEAN CORPUSCULAR VOLUME 89 fl (80-97); MONOCYTES % (AUTO) 9.4 % (3-13); PLATELET COUNT 196 10^3/uL (150-450); RED BLOOD COUNT 4.65 10^6/uL (4.35-5.55); RED CELL DISTRIBUTION WIDTH 15.2 % (11.5-14.0); TOTAL CELLS COUNTED % (AUTO) 100 %; WHITE BLOOD COUNT 5.1 10^3/uL (4.0-10.5)
[2018-08-13 08:52] LABS: ALANINE AMINOTRANSFERASE 26 U/L (21-72); ALBUMIN 4.6 g/dL (3.5-5.0); ALKALINE PHOSPHATASE 57 U/L (38-126); ANION GAP 11 (5-19); ASPARTATE AMINO TRANSFERASE 24 U/L (17-59); BILIRUBIN,DIRECT 0.5 mg/dL (0.0-0.4); BILIRUBIN,TOTAL 0.8 mg/dL (0.2-1.3); BLOOD UREA NITROGEN 10 mg/dL (7-20); CALCIUM 9.8 mg/dL (8.4-10.2); CARBON DIOXIDE 26 mmol/L (22-30); CHLORIDE 103 mmol/L (98-107); CREATINE KINASE 80 U/L (55-170); GLUCOSE 121 mg/dL (75-110); POTASSIUM 4.6 mmol/L (3.6-5.0); SODIUM 139.7 mmol/L (137-145); TOTAL PROTEIN 6.9 g/dL (6.3-8.2)
[2018-08-13 09:04] LABS: CREATINE KINASE MB 1.67 ng/mL (<4.55); TROPONIN I 0.03 ng/mL
--- NOTE | 2018-08-13 09:08 | RADIOLOGY REPORT (SQ) ---
EXAM DESCRIPTION: CHEST SINGLE VIEW COMPLETED DATE/TIME: 08/13/2018 8:48 am REASON FOR STUDY: shortness of breath COMPARISON: Chest films 02/27/2018, 06/03/2018, 06/25/2018, 07/01/2018 EXAM PARAMETERS: NUMBER OF VIEWS: One view. TECHNIQUE: Single frontal radiographic view of the chest acquired. RADIATION DOSE: NA LIMITATIONS: None. FINDINGS: LUNGS AND PLEURA: Chronic blunting left lateral costophrenic sulcus. Lungs are hyperinflated and hyperlucent from obstructive disease. No acute infiltrates. No pneumothorax. MEDIASTINUM AND HILAR STRUCTURES: No masses. Contour normal. HEART AND VASCULAR STRUCTURES: Heart normal in size. Normal vasculature. BONES: No acute findings. HARDWARE: None in the chest. OTHER: No other significant finding. IMPRESSION: No acute changes TECHNICAL DOCUMENTATION: JOB ID: [id number] [employer]- All Rights Reserved Reading location - IP/workstation name: [email or web address]
--- NOTE | 2018-08-13 12:27 | EKG REPORT ---
SEVERITY:- ABNORMAL ECG - SINUS RHYTHM LVH WITH SECONDARY REPOLARIZATION ABNORMALITY ABNORMAL T, PROBABLE ISCHEMIA, LATERAL LEADS ANTERIOR ST ELEVATION, PROBABLY DUE TO LVH : Confirmed by: Ivan Oseguera 13-Aug-2018 12:25:39
--- NOTE | 2018-08-13 13:15 | ER Document Report ---
ED Respiratory Problem - General Chief Complaint: Shortness Of Breath Stated Complaint: SHORTNESS OF BREATH Time Seen by Provider: 08/13/18 08:28 Mode of Arrival: Medic Information source: Patient Notes: Patient is a 58-year-old male with history of COPD who presents to the emergency department with complaint of shortness of breath that started last night. Patient has been seen in the ED multiple times recently for same and was admitted approximately 2 weeks ago. Per EMS report patient's O2 sats on scene were 88% on room air. Patient was given 1 Atrovent, 2 albuterol's in 125 mg of Solu-Medrol IV. Patient reports he feels significantly better on arrival to the emergency department. Patient's O2 saturation is 97% on room air. Minimal wheezing noted. Patient denies any chest pain. Patient denies any recent fever or recent illness. TRAVEL OUTSIDE OF THE [place] IN LAST 30 DAYS: No - Related Data Allergies/Adverse Reactions: No Known Allergies Allergy (Verified 08/13/18 09:00) Past Medical History - General Information source: Patient - Social History Smoking Status: Current Every Day Smoker Chew tobacco use (# tins/day): No Frequency of alcohol use: Social Drug Abuse: None Family History: CAD, Hyperlipidemia, Hypertension Patient has suicidal ideation: No Patient has homicidal ideation: No - Past Medical History Cardiac Medical History: Reports: Hx Congestive Heart Failure, Hx Coronary Artery Disease, Hx Heart Attack, Hx Hypertension Denies: Hx Hypercholesterolemia Pulmonary Medical History: Reports: Hx Bronchitis, Hx COPD, Hx Respiratory Failure Neurological Medical History: Reports: Hx Seizures - Seizures when drinking states he has not drank in 16 years Endocrine Medical History: Denies: Hx Diabetes Mellitus Type 1, Hx Diabetes Mellitus Type 2, Hx Hyperthyroidism, Hx Hypothyroidism Renal/ Medical History: Denies: Hx Peritoneal Dialysis GI Medical History: Denies: Hx Cirrhosis, Hx Gastroesophageal Reflux Disease, Hx Hepatitis Musculoskeletal Medical History: Reports Hx Arthritis, Reports Hx Musculoskeletal Deformity - degenerative disc disease, Reports Hx Musculoskeletal Trauma Psychiatric Medical History: Reports: Hx Attention Deficit Hyperactivity Disorder, Hx Bipolar Disorder, Hx Depression - major, Hx Schizoaffective Disorder Traumatic Medical History: Reports: Hx Fractures, Hx Spine Fracture - States "back in 2 places" Infectious Medical History: Denies: Hx Hepatitis Review of Systems - Review of Systems Respiratory: Short of breath, Wheezing -: Yes All other systems reviewed and negative Physical Exam - Vital signs Vitals: Resp Pulse Ox 28 H 95 08/13/18 08:14 08/13/18 08:14 - Notes Notes: PHYSICAL EXAMINATION: GENERAL: Well-appearing, well-nourished and in no acute distress. HEAD: Atraumatic, normocephalic. EYES: Pupils equal round and reactive to light, extraocular movements intact, sclera anicteric, conjunctiva are normal. ENT: Nares patent, oropharynx clear without exudates. Moist mucous membranes. NECK: Normal range of motion, supple without lymphadenopathy LUNGS: Mild expiratory wheezing noted bilaterally, no shortness of breath. HEART: Regular rate and rhythm without murmurs ABDOMEN: Soft, nontender, nondistended abdomen. No guarding, no rebound. No masses appreciated. Musculoskeletal: Normal range of motion, no pitting or edema. No cyanosis. NEUROLOGICAL: Cranial nerves grossly intact. Normal speech, normal gait. Normal sensory, motor exams PSYCH: Normal mood, normal affect. SKIN: Warm, Dry, normal turgor, no rashes or lesions noted. Course - Re-evaluation Re-evalutation: EKG shows a normal sinus rhythm, rate of 64, no change from previous EKG on record. CBC, CMP, cardiac enzymes negative to include troponin. Patient continues to report improvement. Will keep patient for second troponin. Chest x-ray is unremarkable and unchanged from previous. Delta troponin is negative. Patient reports he is ready to go home. Vital signs have been stable since his arrival. Patient will be discharged home in stable condition at this time will follow up with his primary care provider in the next 2-3 days. - Vital Signs Vital signs: Temp Pulse Resp BP Pulse Ox 97.8 F 92 15 128/68 H 95 08/13/18 13:28 08/13/18 13:28 08/13/18 13:28 08/13/18 13:28 08/13/18 13:28 - Laboratory Result Diagrams: 08/13/18 08:24 08/13/18 08:24 Laboratory results interpreted by me: 08/13/18 08/13/18 08:24 08:24 RDW 15.2 H Eosinophils % 11.2 H Glucose 121 H Direct Bilirubin 0.5 H Discharge - Discharge Clinical Impression: COPD exacerbation Condition: Stable Disposition: HOME, SELF-CARE Additional Instructions: Chronic Obstructive Lung Disease You have chronic obstructive lung disease (COPD). The symptoms come from emphysema (damage to small airways, with trapping of air in large sacks in the lung) and chronic bronchitis (repeated infection and damage to larger airways). The cause is almost always cigarette smoking, although dust exposure, asthma, and infections contribute. You should avoid fumes, dust, and smoke (especially tobacco smoke). Your condition will flare from time to time. There is no cure, but the symptoms can be treated. Bronchodilators (asthma medicine) are often helpful. Antibiotics help when infection is present. When shortness of breath is severe, we may prescribe cortisone medication. If medicine doesn't help enough, we can arrange for you to have an oxygen tank at home. Notify your doctor at once if sputum becomes thick, foul, or bloody, if you develop a fever or chest pain, or if your shortness of breath worsens. Your workup today was normal. Please take all prescribed medications as directed. Return to the emergency department if you develop worsening shortness of breath, chest pain or any other symptom that is concerning to you.* Referrals: MELONIE WESTBROOK PA-C [Primary Care Provider] - Follow up as needed
[2018-08-13 13:30] VITALS: BP 128/68
== END 2018-08-13 13:30 | disposition home or self-care (01) ==
LOC: ER 08:11
DX: J44.1 Chronic obstructive pulmonary disease with (acute) exacerbation (principal); F17.200 Nicotine dependence, unspecified, uncomplicated; I50.9 Heart failure, unspecified; I25.10 Atherosclerotic heart disease of native coronary artery without angina pectoris; I11.0 Hypertensive heart disease with heart failure; I25.2 Old myocardial infarction
CPT/HCPCS: 93005; 94640; 99285; 36415; 82553; 82550; 85025; 80053; 84484; 83880; 71045; 93010; J7620

== ENCOUNTER 2018-09-04 00:17 | Inpatient (IN) | payer MEDICAID ==
[2018-09-04] MEDS ORDERED: PROPOFOL 1,000 MG/100 ML INFUS..BTL IV PRN ×2 (00:23→01:59)
[2018-09-04] MEDS ORDERED: ETOMIDATE INJ/PF 20 MG/10 ML SDV IV ONE (00:23)
[2018-09-04] MEDS ORDERED: ALBUTEROL SULFATE 0.083% NEB 2.5 MG/3 ML AMPUL NEB ONE ×3 (00:23→03:49)
[2018-09-04 00:35] LABS: ABSOLUTE LYMPHOCYTES (AUTO) 1.3 10^3/uL (0.5-4.7); ABSOLUTE MONOCYTES (AUTO) 0.6 10^3/uL (0.1-1.4); BASOPHILS % (AUTO) 0.2 % (0-2); EOSINOPHILS % (AUTO) 12.2 % (0-6); HEMATOCRIT 43.2 % (37.9-51.0); HEMOGLOBIN 14.5 g/dL (13.5-17.0); MEAN CORPUSCULAR HEMOGLOBIN 30.2 pg (27.0-33.4); MEAN CORPUSCULAR HGB CONC 33.5 g/dL (32.0-36.0); MEAN CORPUSCULAR VOLUME 90 fl (80-97); MONOCYTES % (AUTO) 7.4 % (3-13); PLATELET COUNT 183 10^3/uL (150-450); RED BLOOD COUNT 4.79 10^6/uL (4.35-5.55); RED CELL DISTRIBUTION WIDTH 14.7 % (11.5-14.0); SEGMENTED NEUTROPHILS % (AUTO) 63.2 % (42-78); TOTAL CELLS COUNTED % (AUTO) 100 %; VENOUS BLOOD BASE EXCESS -4.2 mmol/L; VENOUS BLOOD HCO3 24.7 mmol/L (20-32); VENOUS BLOOD PCO2 61.2 mmHg (35-63); VENOUS BLOOD PH 7.22 (7.30-7.42); WHITE BLOOD COUNT 7.9 10^3/uL (4.0-10.5)
--- NOTE | 2018-09-04 00:42 | RADIOLOGY REPORT (SQ) ---
XR CHEST 1 VIEW HISTORY: Dyspnea. COMPARISON: 07/01/2018 FINDINGS/IMPRESSION: Endotracheal tube with the tip 4 cm from the klai. Enteric tube with the distal tip not well visualized but appears below the left hemidiaphragm. Normal cardiomediastinal silhouette. Lungs are clear. No pleural effusion or pneumothorax is seen.
--- NOTE | 2018-09-04 00:45 | ER Document Report ---
ED General - General Chief Complaint: Respiratory Distress Stated Complaint: RESPIRATORY DISTRESS Time Seen by Provider: 09/04/18 00:23 Notes: Patient is a 58-year-old male who presents with complaint of difficulty breathing. History of COPD. He has been admitted several times. Substance abuse according to his records. He called the ambulance because of difficulty breathing. When they arrived he was very exhausted and had been using his nebulizer and using his inhaler throughout the day without relief. His O2 saturations 50% so they elected to intubate. Patient arrives intubated. He was given ketamine and rocuronium for RSI in the field. He was also given 125 mg Solu-Medrol and 2 g of magnesium as well as several duoneb breathing treatments. TRAVEL OUTSIDE OF THE [place] IN LAST 30 DAYS: No - Related Data Allergies/Adverse Reactions: No Known Allergies Allergy (Verified 08/13/18 09:00) Past Medical History - Social History Smoking Status: Current Every Day Smoker Frequency of alcohol use: unkown Drug Abuse: Other - unknown Family History: CAD, Hyperlipidemia, Hypertension - Past Medical History Cardiac Medical History: Reports: Hx Congestive Heart Failure, Hx Coronary Artery Disease, Hx Heart Attack - History of, Hx Hypertension Denies: Hx Hypercholesterolemia Pulmonary Medical History: Reports: Hx Bronchitis, Hx COPD, Hx Respiratory Failure Neurological Medical History: Reports: Hx Seizures - Seizures when drinking states he has not drank in 16 years Endocrine Medical History: Denies: Hx Diabetes Mellitus Type 1, Hx Diabetes Mellitus Type 2, Hx Hyperthyroidism, Hx Hypothyroidism Renal/ Medical History: Denies: Hx Peritoneal Dialysis GI Medical History: Denies: Hx Cirrhosis, Hx Gastroesophageal Reflux Disease, Hx Hepatitis Musculoskeletal Medical History: Reports Hx Arthritis, Reports Hx Musculoskeletal Deformity - degenerative disc disease, Reports Hx Musculoskeletal Trauma Psychiatric Medical History: Reports: Hx Attention Deficit Hyperactivity Disorder, Hx Bipolar Disorder, Hx Depression - major, Hx Schizoaffective Disorder Traumatic Medical History: Reports: Hx Fractures, Hx Spine Fracture - States "back in 2 places" Infectious Medical History: Denies: Hx Hepatitis Review of Systems - Review of Systems -: Yes ROS unobtainable due to patient's medical condition - patient is intubated Physical Exam - Notes Notes: General Appearance: Intubated receiving manual ventilation. Vitals: reviewed, See vital signs table. Head: no swelling or tenderness to the head Eyes: PERRL, EOMI, Conjuctiva clear Mouth: No decreasd moisture Throat: No tonsillar inflammation, No airway obstruction, No lymphadenopathy Neck: Supple, no neck tenderness Lungs: Scattered wheezing, No rales, No rhonci, No accessory muscle use, good air exchange bilaterally. Heart: Mildly tachycardic rate, Regular rythm, No murmur, no rub Abdomen: Normal BS, soft, No rigidity, No abdominal tenderness, No guarding, no rebound, Extremities: s good pulses in all extremities, no swelling or tenderness in the extremities, no edema. Skin: warm, dry, appropriate color, no rash Neuro: Sedated and paralyzed. Course - Re-evaluation Re-evalutation: 09/04/18 01:17 Patient has an acidosis on his venous blood gas PCO2 is not elevated. I suspect that his CO2 is not elevated because he was intubated in the field manually ventilated on his way here which probably cleared most of CO2. He does not have a metabolic acidosis. I did speak with the hospitalist, Dr. Crain, who agrees with the patient requests repeat venous blood gas to see if his acidosis is correcting. I have ordered that gas. Patient's ET tube was initially right at the kali. We pulled back 2 cm and is now in appropriate position. I do not see any evidence of pneumonia on chest x-ray. Patient is doing well with propofol for sedation. Patient will be admitted for continued treatment of his respiratory failure. Dictation of this chart was performed using voice recognition software; therefore, there may be some unintended grammatical errors. - Laboratory Result Diagrams: 09/04/18 00:23 09/04/18 00:23 Laboratory results interpreted by me: 09/04/18 09/04/18 09/04/18 00:23 00:23 00:23 RDW 14.7 H Eosinophils % 12.2 H Absolute Eosinophils 1.0 H VBG pH 7.22 L Glucose 126 H - EKG Interpretation by Me Additional EKG results interpreted by me: 09/04/18 00:44 EKG is reviewed and interpreted by me. EKG shows sinus rhythm with a rate of [address] bpm[address] Patient has some ST segment depression and T wave inversions in the inferior and lateral precordial leads. These are similar findings in comparison to his old EKG from August 13, 2018. WI interval, QRS duration, QTc intervals are within normal range. Critical Care Note - Critical Care Note Total time excluding time spent on procedures (mins): 45 Comments: Critical care time for this patient not including time spent on procedures approximately 45 minutes due to management of sedation, management of vent. Discharge - Discharge Clinical Impression: COPD exacerbation, Acidosis Respiratory failure Qualifiers: Chronicity: acute on chronic Respiratory failure complication: hypoxia Qualified Code(s): J96.21 - Acute and chronic respiratory failure with hypoxia Condition: Stable Disposition: ADMITTED INPATIENT Admitting Provider: Hospitalist Unit Admitted: ICU
[2018-09-04 00:48] LABS: ALBUMIN 4.4 g/dL (3.5-5.0); ANION GAP 12 (5-19); BLOOD UREA NITROGEN 15 mg/dL (7-20); CARBON DIOXIDE 27 mmol/L (22-30); CHLORIDE 102 mmol/L (98-107); GLUCOSE 126 mg/dL (75-110); POTASSIUM 4.3 mmol/L (3.6-5.0); TOTAL PROTEIN 6.7 g/dL (6.3-8.2)
[2018-09-04 00:49] LABS: ALANINE AMINOTRANSFERASE 31 U/L (21-72); ALKALINE PHOSPHATASE 78 U/L (38-126); ASPARTATE AMINO TRANSFERASE 52 U/L (17-59); BILIRUBIN,DIRECT 0.2 mg/dL (0.0-0.4); BILIRUBIN,TOTAL 0.6 mg/dL (0.2-1.3); CALCIUM 9.3 mg/dL (8.4-10.2)
[2018-09-04] MEDS ORDERED: PANTOPRAZOLE SODIUM 40 MG VIAL IV ONE ×2 (01:14→03:03)
[2018-09-04] MEDS ORDERED: ACETAMINOPHEN 325 MG TABLET PO PRN (01:55)
[2018-09-04] MEDS ORDERED: IPRATROPIUM/ALBUTEROL 0.5-2.5 MG/3 ML AMPUL NEB PRN (01:55)
[2018-09-04] MEDS ORDERED: FENTANYL CITRATE INJ/PF 100 MCG/2 ML AMPUL IV PRN (01:59)
[2018-09-04] MEDS ORDERED: IPRATROPIUM/ALBUTEROL 0.5-2.5 MG/3 ML AMPUL NEB ONE (02:15)
[2018-09-04] MEDS: NORMAL SALINE 1000 ML 1,000 ML IV PRN ×2 (02:20→04:03)
[2018-09-04] MEDS: NORMAL SALINE 100 ML with PANTOPRAZOLE SODIUM 80 MG IV PRN ×6 (03:13→23:35)
[2018-09-04 04:26] LABS: URINE AMPHETAMINES SCREEN UNCONFIRMED POSITIVE; URINE BARBITURATES SCREEN NEGATIVE; URINE BENZODIAZEPINES SCREEN NEGATIVE; URINE COCAINE SCREEN NEGATIVE; URINE MARIJUANA (THC) SCREEN NEGATIVE; URINE METHADONE SCREEN NEGATIVE; URINE PHENCYCLIDINE SCREEN NEGATIVE
--- NOTE | 2018-09-04 06:01 | PDOC H&P ---
History of Present Illness Admission Date/PCP: 09/04/18 01:23 MELONIE WESTBROOK PA-C Patient complains of: Shortness of breath History of Present Illness: GALI CHURCH JR is a 58 year old male who is homeless with a past medical history of congestive heart failure, ejection fraction of 35%, moderate mitral regurgitation and pulmonary hypertension, COPD with chronic bronchitis, tobacco , medication and polysubstance abuse. Dr. Crain Patient presents after contacting EMS for shortness of breath. He was found tachypneic and exhausted with oxygen saturations of 50% prompting immediate intubation in the field. He received ketamine, rocuronium, magnesium and Solu- Medrol in route. In the emergency room he received supportive care but self extubates with orientation x3, maintaining oxygen saturations in the mid 90s. He is placed on BiPAP and referred to the hospitalist for admission. Patient is unhelpful with history with exception to claiming shortness of breath not alleviated by nebulizers at home. Past Medical History Cardiac Medical History: Reports: Congestive Heart Failure, Coronary Artery Disease, Myocardial Infarction - History of, Hypertension Denies: Hyperlipidema Pulmonary Medical History: Reports: Bronchitis, Chronic Obstructive Pulmonary Disease (COPD), Respiratory Failure Neurological Medical History: Reports: Seizures - Seizures when drinking states he has not drank in 16 years Endocrine Medical History: Denies: Diabetes Mellitus Type 1, Diabetes Mellitus Type 2, Hyperthyroidism, Hypothyroidism GI Medical History: Denies: Cirrhosis, Gastroesophageal Reflux Disease, Hepatitis Musculoskeltal Medical History: Reports: Arthritis Psychiatric Medical History: Reports: Attention Deficit Hyperactivity Disorder, Bipolar Disorder, Depression - major, Schizoaffective Disorder Social History Information Source: Patient, [facility] Records Smoking Status: Current Every Day Smoker Frequency of Alcohol Use: None Hx Recreational Drug Use: Yes Drugs: Marijuana Hx Prescription Drug Abuse: Yes - Advance Directive Resuscitation Status: Full Code Family History Family History: CAD, Hyperlipidemia, Hypertension Parental Family History Reviewed: Yes Children Family History Reviewed: Yes Sibling(s) Family History Reviewed.: Yes Medication/Allergy Home Medications: Albuterol Sulfate [Proair HFA] 2 puff IH Q4HP PRN 30 Days #1 hfa.aer.ad Aspirin [Adult Low Dose Aspirin EC] 81 mg PO DAILY 30 Days #30 tablet. Benztropine Mesylate [Cogentin 1 mg Tablet] 1 mg PO QHS 30 Days #30 tablet 06/27 Buspirone HCl [Buspar 10 mg Tablet] 10 mg PO Q12 30 Days #60 tablet 06/27/18 Divalproex Sodium [Depakote ER 500 mg Tab.sr] 500 mg PO Q12 30 Days #60 tab.sr.24h 06/27/18 Nicotine [Nicoderm 21 mg/24 Hr Transderm Patch] 1 each TD DAILY 14 Days #14 patch.td24 06/27/18 Olanzapine [Zyprexa 5 mg Tablet] 5 mg PO Q12 30 Days #60 tablet 06/27/18 Tiotropium [place] [Spiriva Handihaler 18 mcg/dose (30 Dose)] 18 mcg IH DAILY 30 Days #1 cap.w.dev 06/27/18 Acetaminophen [Tylenol 325 mg Tablet] 650 mg PO Q6HP PRN tablet 07/03/18 Azithromycin [Zithromax 250 mg Tablet] 500 mg PO DAILY@0400 3 Days #6 tablet Budesonide/Formoterol Fumarate [Symbicort HFA 160-4.5 mcg Inhaler 6 gm] 2 puff IH Q12 #1 inhaler 07/03/18 Metoprolol Succinate [Toprol Xl 25 mg Tab.sr] 25 mg PO DAILY #30 tab.sr.24h Prednisone [Deltasone 10 mg Tablet] 10 mg PO ASDIR PRN #25 tablet 07/03/18 Allergies/Adverse Reactions: No Known Allergies Allergy (Verified 08/13/18 09:00) Review of Systems ROS unobtainable: Due to mental status Physical Exam Vital Signs: Temp Pulse Resp BP Pulse Ox 98.0 F 14 101/62 98 09/04/18 04:51 09/04/18 04:51 09/04/18 04:51 09/04/18 04:51 Intake & Output 09/02/18 09/03/18 09/04/18 11:59 11:59 11:59 Intake Total 362 Balance 362 Weight 70 kg General appearance: PRESENT: disheveled, mild distress, thin Head exam: PRESENT: atraumatic, normocephalic Eye exam: PRESENT: conjunctiva pink, EOMI, PERRLA. ABSENT: scleral icterus Ear exam: PRESENT: normal external ear exam Mouth exam: PRESENT: moist, tongue midline Neck exam: ABSENT: carotid bruit, JVD, lymphadenopathy, thyromegaly Respiratory exam: PRESENT: accessory muscle use, crackles, prolonged expiratory phas, symmetrical, tachypnea. ABSENT: rhonchi, stridor Cardiovascular exam: PRESENT: RRR. ABSENT: diastolic murmur, rubs, systolic murmur Pulses: PRESENT: normal dorsalis pedis pul Vascular exam: PRESENT: normal capillary refill GI/Abdominal exam: PRESENT: normal bowel sounds, soft. ABSENT: distended, guarding, mass, organolmegaly, rebound, tenderness Rectal exam: PRESENT: deferred Extremities exam: PRESENT: full ROM. ABSENT: calf tenderness, clubbing, pedal edema Neurological exam: PRESENT: alert, awake, oriented to person, oriented to place , oriented to time, oriented to situation, CN II-XII grossly intact. ABSENT: motor sensory deficit Psychiatric exam: PRESENT: appropriate affect, normal mood. ABSENT: homicidal ideation, suicidal ideation Skin exam: PRESENT: dry, intact, warm. ABSENT: cyanosis, rash Results Impressions: Chest X-Ray 09/04/18 00:23 FINDINGS/IMPRESSION: Endotracheal tube with the tip 4 cm from the kali. Enteric tube with the distal tip not well visualized but appears below the left hemidiaphragm. Normal cardiomediastinal silhouette. Lungs are clear. No pleural effusion or pneumothorax is seen. Assessment & Plan - Diagnosis (1) Acute and chronic respiratory failure Qualifiers: Respiratory failure complication: hypoxia Qualified Code(s): J96.21 - Acute and chronic respiratory failure with hypoxia Is this a current diagnosis for this admission?: Yes Plan: BiPAP as tolerated, supplemental oxygen, aggressive pulmonary toilet, follow-up ABG (2) COPD exacerbation Is this a current diagnosis for this admission?: Yes Plan: Empiric antibiotics, prednisone for chronic bronchitis, flutter valve, albuterol and Atrovent. (3) Polysubstance abuse Is this a current diagnosis for this admission?: Yes Plan: Supportive care. - Time Time Spent: 30 to 50 Minutes - Inpatient Certification Medical Necessity: Need Close Monitoring Due to Risk of Patient Decompensation
[2018-09-04 06:27] LABS: ABSOLUTE LYMPHOCYTES (AUTO) 0.3 10^3/uL (0.5-4.7); ABSOLUTE MONOCYTES (AUTO) 0.1 10^3/uL (0.1-1.4); ABSOLUTE NEUT (AUTO) 4.1 10^3/uL (1.7-8.2); BASOPHILS % (AUTO) 0.1 % (0-2); HEMATOCRIT 38.1 % (37.9-51.0); HEMOGLOBIN 12.9 g/dL (13.5-17.0); LYMPHOCYTES % (AUTO) 6.3 % (13-45); MEAN CORPUSCULAR HEMOGLOBIN 30.6 pg (27.0-33.4); MEAN CORPUSCULAR VOLUME 90 fl (80-97); MONOCYTES % (AUTO) 1.2 % (3-13); PLATELET COUNT 157 10^3/uL (150-450); RED BLOOD COUNT 4.22 10^6/uL (4.35-5.55); RED CELL DISTRIBUTION WIDTH 14.8 % (11.5-14.0); SEGMENTED NEUTROPHILS % (AUTO) 91.4 % (42-78); TOTAL CELLS COUNTED % (AUTO) 100 %; WHITE BLOOD COUNT 4.5 10^3/uL (4.0-10.5)
[2018-09-04] MEDS: LEVOFLOXACIN 750 MG/D5W RTU 750 MG/150 ML RTUPB IV SCH (06:29)
[2018-09-04] MEDS: HEPARIN SOD (PORCINE) 5,000 UNIT/ML 1 ML SYRINGE SUBCUT SCH ×3 (06:30→22:01)
[2018-09-04 06:40] LABS: ANION GAP 9 (5-19); BLOOD UREA NITROGEN 13 mg/dL (7-20); CALCIUM 8.5 mg/dL (8.4-10.2); CARBON DIOXIDE 23 mmol/L (22-30); CHLORIDE 107 mmol/L (98-107); CREATINE KINASE 87 U/L (55-170); GLUCOSE 139 mg/dL (75-110); POTASSIUM 4.7 mmol/L (3.6-5.0); SODIUM 139.3 mmol/L (137-145)
[2018-09-04 06:50] LABS: CREATINE KINASE MB 1.44 ng/mL (<4.55)
[2018-09-04 06:54] LABS: TROPONIN I < 0.012 ng/mL
[2018-09-04] MEDS ORDERED: IPRATROPIUM/ALBUTEROL 0.5-2.5 MG/3 ML AMPUL NEB SCH (08:00)
[2018-09-04] MEDS: OLANZAPINE 5 MG TABLET PO SCH ×2 (09:29→22:00)
[2018-09-04] MEDS: DIVALPROEX SODIUM 500 MG TAB.SR.24H PO SCH ×2 (09:29→22:01)
[2018-09-04] MEDS ORDERED: PREDNISONE 20 MG TABLET PO SCH (10:00)
[2018-09-04] MEDS ORDERED: METHYLPREDNISOLONE INJ 40 MG/1 ML SDV IV SCH (10:00)
--- NOTE | 2018-09-04 10:46 | EKG REPORT ---
SEVERITY:- ABNORMAL ECG - SINUS RHYTHM EVELIN, CONSIDER BIATRIAL ABNORMALITIES LVH WITH SECONDARY REPOLARIZATION ABNORMALITY ANTEROLATERAL Q WAVES, PROBABLY DUE TO LVH : Confirmed by: Ivan Oseguera 04-Sep-2018 10:44:45
[2018-09-04] MEDS: IPRATROPIUM/ALBUTEROL 0.5-2.5 MG/3 ML AMPUL NEB SCH ×3 (11:35→20:23)
[2018-09-04 13:48] LABS: CREATINE KINASE MB 1.68 ng/mL (<4.55); TROPONIN I 0.012 ng/mL
[2018-09-04] MEDS: METHYLPREDNISOLONE INJ 40 MG/1 ML SDV IV SCH ×2 (14:50→22:01)
--- NOTE | 2018-09-04 17:45 | Progress Note ---
Provider Note Provider Note: Assumed care this morning. Patient was admitted and intubated for COPD exacerbation. He self-extubated in the ER but has been doing well on BIPAP since the event. On encounter, he appears comfortable. He had bilateral wheezing around 8 am and upon reassessment in the afternoon, he was comfortable on BIPAP with significantly improved wheezing.
[2018-09-04 18:58] LABS: CREATINE KINASE MB 1.19 ng/mL (<4.55)
[2018-09-04 19:03] LABS: TROPONIN I < 0.012 ng/mL
[2018-09-04] MEDS: BENZTROPINE MESYLATE 1 MG TABLET PO SCH (22:00)
[2018-09-05] MEDS: IPRATROPIUM/ALBUTEROL 0.5-2.5 MG/3 ML AMPUL NEB SCH ×7 (00:01→23:40)
[2018-09-05 05:02] LABS: ABSOLUTE LYMPHOCYTES (AUTO) 0.3 10^3/uL (0.5-4.7); ABSOLUTE MONOCYTES (AUTO) 0.3 10^3/uL (0.1-1.4); ABSOLUTE NEUT (AUTO) 5.3 10^3/uL (1.7-8.2); BASOPHILS % (AUTO) 0.1 % (0-2); HEMATOCRIT 36.3 % (37.9-51.0); HEMOGLOBIN 12.5 g/dL (13.5-17.0); LYMPHOCYTES % (AUTO) 5.7 % (13-45); MEAN CORPUSCULAR HEMOGLOBIN 30.5 pg (27.0-33.4); MEAN CORPUSCULAR HGB CONC 34.3 g/dL (32.0-36.0); MEAN CORPUSCULAR VOLUME 89 fl (80-97); MONOCYTES % (AUTO) 5.1 % (3-13); PLATELET COUNT 144 10^3/uL (150-450); RED BLOOD COUNT 4.08 10^6/uL (4.35-5.55); SEGMENTED NEUTROPHILS % (AUTO) 89.1 % (42-78); TOTAL CELLS COUNTED % (AUTO) 100 %
[2018-09-05 05:18] LABS: ANION GAP 6 (5-19); BLOOD UREA NITROGEN 15 mg/dL (7-20); CALCIUM 8.9 mg/dL (8.4-10.2); CARBON DIOXIDE 28 mmol/L (22-30); CHLORIDE 103 mmol/L (98-107); GLUCOSE 142 mg/dL (75-110); POTASSIUM 4.4 mmol/L (3.6-5.0); SODIUM 136.8 mmol/L (137-145)
[2018-09-05] MEDS: HEPARIN SOD (PORCINE) 5,000 UNIT/ML 1 ML SYRINGE SUBCUT SCH ×3 (06:25→21:13)
[2018-09-05] MEDS: METHYLPREDNISOLONE INJ 40 MG/1 ML SDV IV SCH ×2 (06:26→13:34)
[2018-09-05] MEDS: LEVOFLOXACIN 750 MG/D5W RTU 750 MG/150 ML RTUPB IV SCH (06:26)
[2018-09-05 07:28] LABS: ARTERIAL BLOOD BASE EXCESS 1.3 mmol/L; ARTERIAL BLOOD H2CO3 1.26 mmol/L (1.05-1.35); ARTERIAL BLOOD HCO3 26.1 mmol/L (20-24); ARTERIAL BLOOD PCO2 41.8 mmHg (35-45); ARTERIAL BLOOD PH 7.41 (7.35-7.45); ARTERIAL BLOOD PO2 90.9 mmHg (80-100); ARTERIAL BLOOD TOTAL CO2 27.4 mmol/L (23-27)
[2018-09-05 07:29] LABS: ARTERIAL BLOOD FIO2 30%
[2018-09-05] MEDS: DIVALPROEX SODIUM 500 MG TAB.SR.24H PO SCH ×2 (09:51→21:14)
[2018-09-05] MEDS: OLANZAPINE 5 MG TABLET PO SCH ×2 (09:51→21:14)
[2018-09-05] MEDS: LISINOPRIL 5 MG TABLET PO SCH (13:34)
--- NOTE | 2018-09-05 16:19 | PDOC PROGRESS REPORT ---
Subjective Progress Note for:: 09/05/18 Subjective:: GALI CHURCH JR is a 58 year old male who is homeless with a past medical history of congestive heart failure, ejection fraction of 35%, moderate mitral regurgitation and pulmonary hypertension, COPD with chronic bronchitis, tobacco , medication and polysubstance abuse who was intubated and admitted by EMS for severe COPD exacerbation. Patient self-extubated while in the ER but he was maintained his saturation well and did go into acute distress while on BIPAP. No acute event overnight. He has been weaned off BIPAP and is saturating well on 3lpm. He says he uses O2 at home at night (3 lpm). He says he feels much better today and feels like he is almost at his baseline. No fever or chills. Lungs sound significantly much better with only minimal wheezing. Reason For Visit: ACUTE RESPIRATORY FAILURE Physical Exam Vital Signs: Temp Pulse Resp BP Pulse Ox 99.1 F 117 H 17 115/65 97 09/05/18 11:36 09/05/18 14:00 09/05/18 11:51 09/05/18 11:36 09/05/18 11:51 Intake & Output 09/04/18 09/05/18 09/06/18 06:59 06:59 06:59 Intake Total 362 827 572 Output Total 600 400 Balance 362 227 172 Weight 154 lb 5.177 oz 146 lb 2.664 oz General appearance: PRESENT: no acute distress, well-developed, well-nourished Head exam: PRESENT: atraumatic, normocephalic Eye exam: PRESENT: conjunctiva pink, EOMI, PERRLA. ABSENT: scleral icterus Ear exam: PRESENT: normal external ear exam Mouth exam: PRESENT: moist, tongue midline Neck exam: ABSENT: carotid bruit, JVD, lymphadenopathy, thyromegaly Respiratory exam: PRESENT: clear to auscultation nyasia, wheezes - minimal wheezing on the bases. ABSENT: rales, rhonchi Cardiovascular exam: PRESENT: RRR. ABSENT: diastolic murmur, rubs, systolic murmur Pulses: PRESENT: normal dorsalis pedis pul GI/Abdominal exam: PRESENT: normal bowel sounds, soft. ABSENT: distended, guarding, mass, organolmegaly, rebound, tenderness Rectal exam: PRESENT: deferred Neurological exam: PRESENT: alert, awake, oriented to person, oriented to place , oriented to time, oriented to situation, CN II-XII grossly intact. ABSENT: motor sensory deficit Results Laboratory Results: 09/05/18 04:48 09/05/18 04:48 09/05/18 09/05/18 09/05/18 04:48 04:48 06:53 WBC 6.0 RBC 4.08 L Hgb 12.5 L Hct 36.3 L MCV 89 MCH 30.5 MCHC 34.3 RDW 15.0 H Plt Count 144 L Seg Neutrophils % 89.1 H Lymphocytes % 5.7 L Monocytes % 5.1 Eosinophils % 0.0 Basophils % 0.1 Absolute Neutrophils 5.3 Absolute Lymphocytes 0.3 L Absolute Monocytes 0.3 Absolute Eosinophils 0.0 Absolute Basophils 0.0 Carbonic Acid 1.26 HCO3/H2CO3 Ratio 20:1 ABG pH 7.41 ABG pCO2 41.8 ABG pO2 90.9 ABG HCO3 26.1 H ABG O2 Saturation 97.0 ABG Base Excess 1.3 FiO2 30% Sodium 136.8 L Potassium 4.4 Chloride 103 Carbon Dioxide 28 Anion Gap 6 BUN 15 Creatinine 0.75 Est GFR ( Amer) > 60 Est GFR (Non-Af Amer) > 60 Glucose 142 H Calcium 8.9 09/04/18 09/04/18 09/04/18 06:18 06:18 12:44 Creatine Kinase 87 88 CK-MB (CK-2) 1.44 Troponin I < 0.012 09/04/18 09/04/18 09/04/18 12:44 18:18 18:18 Creatine Kinase 63 CK-MB (CK-2) 1.68 1.19 Troponin I 0.012 < 0.012 Impressions: Chest X-Ray 09/04/18 00:23 FINDINGS/IMPRESSION: Endotracheal tube with the tip 4 cm from the kali. Enteric tube with the distal tip not well visualized but appears below the left hemidiaphragm. Normal cardiomediastinal silhouette. Lungs are clear. No pleural effusion or pneumothorax is seen. Assessment & Plan - Diagnosis (1) Acute on chronic respiratory failure with hypoxemia Is this a current diagnosis for this admission?: Yes Plan: Patient was intubated due to severe hypoxia with saturation in the 50s. Secondary to severe COPD exacerbation. (2) COPD exacerbation Is this a current diagnosis for this admission?: Yes Plan: Resolved. Switch IV steroids to PO today. Continue PO Levaquin. Weaned back this afternoon to home O2 requirement of 2 lpm. Will likely be discharged tomorrow. (3) Congestive heart failure Is this a current diagnosis for this admission?: Yes Plan: Chronic systolic heart failure not in exacerbation. Continue lisinopril and metoprolol. - Time Time Spent with patient: 15-24 minutes
[2018-09-05] MEDS: LANSOPRAZOLE 15 MG TAB.RAP.DR PO SCH (17:22)
[2018-09-05] MEDS: PREDNISONE 20 MG TABLET PO SCH (17:22)
[2018-09-05] MEDS: BENZTROPINE MESYLATE 1 MG TABLET PO SCH (21:14)
[2018-09-06] MEDS: IPRATROPIUM/ALBUTEROL 0.5-2.5 MG/3 ML AMPUL NEB SCH ×2 (04:17→08:32)
[2018-09-06 04:50] LABS: ABSOLUTE LYMPHOCYTES (AUTO) 0.4 10^3/uL (0.5-4.7); ABSOLUTE MONOCYTES (AUTO) 0.3 10^3/uL (0.1-1.4); ABSOLUTE NEUT (AUTO) 5.5 10^3/uL (1.7-8.2); BASOPHILS % (AUTO) 0.1 % (0-2); HEMATOCRIT 35.3 % (37.9-51.0); HEMOGLOBIN 12.3 g/dL (13.5-17.0); LYMPHOCYTES % (AUTO) 5.8 % (13-45); MEAN CORPUSCULAR HEMOGLOBIN 30.7 pg (27.0-33.4); MEAN CORPUSCULAR HGB CONC 34.9 g/dL (32.0-36.0); MEAN CORPUSCULAR VOLUME 88 fl (80-97); MONOCYTES % (AUTO) 4.9 % (3-13); PLATELET COUNT 143 10^3/uL (150-450); RED BLOOD COUNT 4.01 10^6/uL (4.35-5.55); RED CELL DISTRIBUTION WIDTH 14.9 % (11.5-14.0); SEGMENTED NEUTROPHILS % (AUTO) 89.2 % (42-78); TOTAL CELLS COUNTED % (AUTO) 100 %; WHITE BLOOD COUNT 6.2 10^3/uL (4.0-10.5)
[2018-09-06 05:09] LABS: ANION GAP 10 (5-19); BLOOD UREA NITROGEN 22 mg/dL (7-20); CALCIUM 9.3 mg/dL (8.4-10.2); CARBON DIOXIDE 27 mmol/L (22-30); CHLORIDE 104 mmol/L (98-107); GLUCOSE 125 mg/dL (75-110); POTASSIUM 4.4 mmol/L (3.6-5.0); SODIUM 140.8 mmol/L (137-145)
[2018-09-06] MEDS: LANSOPRAZOLE 15 MG TAB.RAP.DR PO SCH (05:26)
[2018-09-06] MEDS: HEPARIN SOD (PORCINE) 5,000 UNIT/ML 1 ML SYRINGE SUBCUT SCH (05:26)
[2018-09-06] MEDS ORDERED: LEVOFLOXACIN 750 MG TABLET PO SCH (10:00)
[2018-09-06] MEDS ORDERED: METOPROLOL SUCCINATE 25 MG TAB.SR.24H PO SCH (10:00)
[2018-09-06] MEDS: PREDNISONE 20 MG TABLET PO SCH (10:14)
[2018-09-06] MEDS: DIVALPROEX SODIUM 500 MG TAB.SR.24H PO SCH (10:14)
[2018-09-06] MEDS: OLANZAPINE 5 MG TABLET PO SCH (10:14)
[2018-09-06] MEDS: LISINOPRIL 5 MG TABLET PO SCH (10:14)
--- NOTE | 2018-09-06 10:55 | PDOC DISCHARGE SUMMARY ---
General - Admit/Disc Date/PCP Admission Date/Primary Care Provider: 09/04/18 01:23 MELONIE WESTBROOK PA-C Discharge Date: 09/06/18 - Discharge Diagnosis (1) Acute on chronic respiratory failure with hypoxemia Is this a current diagnosis for this admission?: Yes Summary: Patient on 2 L at home currently saturations on 1.5-2 L are in the mid 90s. Patient lives with a friend he is not homeless at this time. He has access to oxygen and claims he has a BiPAP machine. He is back at his baseline. He was intubated in the field and self extubated once in the hospital. His x-ray is clear there is no evidence of an infection at's likely it is due to his polysubstance abuse he did test positive for amphetamines. (2) COPD exacerbation Is this a current diagnosis for this admission?: Yes (5) Polysubstance abuse Is this a current diagnosis for this admission?: Yes - Additional Information Resuscitation Status: Full Code Discharge Diet: As Tolerated Discharge Activity: Activity As Tolerated Prescriptions: Prednisone [Deltasone 20 mg Tablet] 40 mg PO BID #8 tablet Home Medications: Albuterol Sulfate [Proair HFA Inhalation Aerosol 8.5 gm MDI] 2 puff IH Q4HP PRN 09/04/18 Amphet Asp/Amphet/D-Amphet [Adderall 30 mg Tablet] 30 mg PO [id number] 09/04/18 Aripiprazole [Abilify 5 mg Tablet] 5 mg PO DAILY 09/04/18 Aspirin [Adult Aspirin] 81 mg PO DAILY 09/04/18 Benztropine Mesylate [Cogentin 1 mg Tablet] 1 mg PO QHS 09/04/18 Buspirone HCl [Buspar 10 mg Tablet] 10 mg PO BID 09/04/18 Dextroamphetamine/Amphetamine [Adderall 30 mg Tablet] 30 mg PO DAILY@1400 Divalproex Sodium [Depakote] 500 mg PO BID 09/04/18 Escitalopram Oxalate [Lexapro 10 mg Tablet] 10 mg PO DAILY 09/04/18 Hydroxyzine Pamoate [Vistaril 25 mg Capsule] 25 mg PO Q8HP PRN 09/04/18 Metoprolol Succinate [Toprol Xl 25 mg Tab.sr] 25 mg PO DAILY 09/04/18 Olanzapine [Zyprexa 5 mg Tablet] 5 mg PO BID 09/04/18 Tiotropium [place] [Spiriva Handihaler 18 mcg/dose (30 Dose)] 18 mcg IH DAILY Acetaminophen [Tylenol 325 mg Tablet] 650 mg PO Q4HP PRN tablet 09/06/18 Prednisone [Deltasone 20 mg Tablet] 40 mg PO BID #8 tablet 09/06/18 History of Present Illness Patient complains of: Shortness of breath History of Present Illness: GALI CHURCH JR is a 58 year old male who is homeless with a past medical history of congestive heart failure, ejection fraction of 35%, moderate mitral regurgitation and pulmonary hypertension, COPD with chronic bronchitis, tobacco , medication and polysubstance abuse. Dr. Crain Patient presents after contacting EMS for shortness of breath. He was found tachypneic and exhausted with oxygen saturations of 50% prompting immediate intubation in the field. He received ketamine, rocuronium, magnesium and Solu- Medrol in route. In the emergency room he received supportive care but self extubates with orientation x3, maintaining oxygen saturations in the mid 90s. He is placed on BiPAP and referred to the hospitalist for admission. Hospital Course Hospital Course: Patient was intubated in the field was to be admitted to the medical intensive care unit however he self extubated. He was placed on BiPAP and did quite well. His chest x-ray was clear there is no evidence of infection his urine drug screen was positive for amphetamines. And while it is unclear what caused his desaturations of 50% in the field he responded to BiPAP and IV Solu-Medrol and nebulizing treatments. He was empirically placed on Levaquin on admission and it was not continued in the outpatient setting as there was no source of infection. On the day of discharge his saturations were in the mid 90s on 1-1/ 2 L. It was confirmed by talking to the patient that he is living with a friend he has access to oxygen and BiPAP machine. He is to follow-up with his primary care in 7-10 days Physical Exam Vital Signs: Temp Pulse Resp BP Pulse Ox 97.7 F 75 14 125/53 L 95 09/06/18 07:38 09/06/18 07:38 09/06/18 07:38 09/06/18 07:38 09/06/18 07:38 Intake & Output 09/05/18 09/06/18 09/07/18 06:59 06:59 06:59 Intake Total 827 1031 Output Total 600 1000 Balance 227 31 Weight 66.3 kg 65 kg General appearance: PRESENT: no acute distress, well-developed, well-nourished Eye exam: PRESENT: conjunctiva pink, EOMI, PERRLA. ABSENT: scleral icterus Neck exam: ABSENT: carotid bruit, JVD, lymphadenopathy, thyromegaly Respiratory exam: PRESENT: clear to auscultation nyasia, decreased breath sounds. ABSENT: rales, rhonchi, wheezes Pulses: PRESENT: normal dorsalis pedis pul GI/Abdominal exam: PRESENT: normal bowel sounds, soft. ABSENT: distended, guarding, mass, organolmegaly, rebound, tenderness Extremities exam: PRESENT: full ROM. ABSENT: calf tenderness, clubbing, pedal edema Results Laboratory Results: 09/06/18 04:37 09/06/18 04:37 09/06/18 09/06/18 04:37 04:37 WBC 6.2 RBC 4.01 L Hgb 12.3 L Hct 35.3 L MCV 88 MCH 30.7 MCHC 34.9 RDW 14.9 H Plt Count 143 L Seg Neutrophils % 89.2 H Lymphocytes % 5.8 L Monocytes % 4.9 Eosinophils % 0.0 Basophils % 0.1 Absolute Neutrophils 5.5 Absolute Lymphocytes 0.4 L Absolute Monocytes 0.3 Absolute Eosinophils 0.0 Absolute Basophils 0.0 Sodium 140.8 Potassium 4.4 Chloride 104 Carbon Dioxide 27 Anion Gap 10 BUN 22 H Creatinine 0.82 Est GFR ( Amer) > 60 Est GFR (Non-Af Amer) > 60 Glucose 125 H Calcium 9.3 09/04/18 09/04/18 09/04/18 06:18 06:18 12:44 Creatine Kinase 87 88 CK-MB (CK-2) 1.44 Troponin I < 0.012 09/04/18 09/04/18 09/04/18 12:44 18:18 18:18 Creatine Kinase 63 CK-MB (CK-2) 1.68 1.19 Troponin I 0.012 < 0.012 Impressions: Chest X-Ray 09/04/18 00:23 FINDINGS/IMPRESSION: Endotracheal tube with the tip 4 cm from the kali. Enteric tube with the distal tip not well visualized but appears below the left hemidiaphragm. Normal cardiomediastinal silhouette. Lungs are clear. No pleural effusion or pneumothorax is seen. Qualifiers - * PATIENT BEING DISCHARGED WITH ANY OF THE FOLLOWING DIAGNOSIS: No Plan Time Spent: Greater than 30 Minutes
[2018-09-06 11:33] VITALS: BP 115/71
== END 2018-09-06 12:20 | disposition home or self-care (01) | DRG 208 ==
LOC: ER 00:17 → EH 01:23 → UNDOADMIN 01:23 → 3W 10:12
PROVIDERS: ADMIT Internal Medicine; ATTEND Internal Medicine
PROC: 5A1935Z Respiratory Ventilation, Less than 24 Consecutive Hours (ICD-10-PCS; principal; 2018-09-04)
PROC: 5A09457 Assistance with Respiratory Ventilation, 24-96 Consecutive Hours, Continuous Positive Airway Pressure (ICD-10-PCS; 2018-09-04)
PROC: 3E02340 Introduction of Influenza Vaccine into Muscle, Percutaneous Approach (ICD-10-PCS; 2018-09-06)
DX: J96.21 Acute and chronic respiratory failure with hypoxia (principal); J44.1 Chronic obstructive pulmonary disease with (acute) exacerbation; I50.22 Chronic systolic (congestive) heart failure; F17.200 Nicotine dependence, unspecified, uncomplicated; I25.10 Atherosclerotic heart disease of native coronary artery without angina pectoris; I11.0 Hypertensive heart disease with heart failure; M19.90 Unspecified osteoarthritis, unspecified site; F32.9 Major depressive disorder, single episode, unspecified; I27.20 Pulmonary hypertension, unspecified; F15.10 Other stimulant abuse, uncomplicated; I34.0 Nonrheumatic mitral (valve) insufficiency; F90.9 Attention-deficit hyperactivity disorder, unspecified type; Z82.49 Family history of ischemic heart disease and other diseases of the circulatory system; Z83.438 Family history of other disorder of lipoprotein metabolism and other lipidemia; Z79.82 Long term (current) use of aspirin; Z79.899 Other long term (current) drug therapy; Z79.51 Long term (current) use of inhaled steroids; Z23 Encounter for immunization; Z99.81 Dependence on supplemental oxygen
CPT/HCPCS: 36415; 71045; 80048; 80053; 80307; 82271; 82550; 82553; 82803; 84484; 85025; 90686; 93005; 93010; 94002; 94640; 94660; 99291; J1644; J1956; J2704; J2920; J3010; J3490; J7030; J7512; J7620; S0164

== ENCOUNTER 2018-09-26 13:29 | Inpatient (IN) | payer MEDICAID ==
--- NOTE | 2018-09-26 13:45 | ER Document Report ---
ED General - General Stated Complaint: CHEST PAIN Time Seen by Provider: 09/26/18 13:38 TRAVEL OUTSIDE OF THE [place] IN LAST 30 DAYS: No - HPI Notes: Patient is a 58-year-old female that presents to the emergency department for chief complaint of dyspnea. Patient has severe COPD and started having chest pains and shortness of breath last night. He was seen last month for COPD exacerbation and was intubated in the field by EMS for respiratory failure. Patient states he has been using a nebulized albuterol 2 times a day. He has an albuterol rescue inhaler which he has used infrequently he has run out of. Patient reports yesterday evening and this morning he had sharp substernal chest pain. The pain was nonradiating. The pain is not currently present. He states he was at rest when the pain occurred and it lasted for a few seconds to a few minutes at a time. He does report history of VA and states this chest pain felt similar. Past Medical History: COPD, VA Past Surgical History: Left chest tube Social History: Denies drugs alcohol and tobacco Family History: Reviewed and noncontributory for presenting illness Allergies: Reviewed, see documented allergy list. REVIEW OF SYSTEMS: CONSTITUTIONAL : No fever No chills No diaphoresis No recent illness EENT: No vision changes No congestion No sore throat CARDIOVASCULAR: No chest pain No palpitations RESPIRATORY: No shortness of breath No cough No difficulty breathing GASTROINTESTINAL: No abdominal pain No nausea No vomiting No diarrhea GENITOURINARY: No dysuria No hematuria No difficulty urinating MUSCULOSKELETAL: No back pain No leg pain No arm pain SKIN: No rashes No lesions LYMPHATIC: No swollen, enlarged glands. NEUROLOGICAL: No lightheadedness No headache No weakness No paresthesias PSYCHIATRIC: No anxiety No depression PHYSICAL EXAMINATION: Vital signs reviewed, nursing noted reviewed. GENERAL: Diaphoretic, and in moderate acute distress. HEAD: Atraumatic, normocephalic. EYES: Eyes appear normal, extraocular movements intact, sclera anicteric, conjunctiva are normal. ENT: nares patent, oropharynx clear without exudates. Moist mucous membranes. NECK: Normal range of motion, supple without lymphadenopathy LUNGS: Significantly diminished sounds bilaterally with end expiratory wheezing. Increased work of breathing with accessory muscle use. HEART: Regular rate and rhythm without murmurs. +2/4 bilateral radial and DP pulses ABDOMEN: Soft, nontender, normoactive bowel sounds. No rebound, guarding, or rigidity. No masses appreciated. EXTREMITIES: Nontender, good range of motion, no pitting or edema. NEUROLOGICAL: No focal neurological deficits. Moves all extremities spontaneously Motor and sensory grossly intact on exam. PSYCH: Normal mood, normal affect. SKIN: Warm, Dry, normal turgor, no rashes or lesions noted on exposed skin - Related Data Allergies/Adverse Reactions: No Known Allergies Allergy (Verified 08/13/18 09:00) Past Medical History - Social History Smoking Status: Former Smoker Family History: CAD, Hyperlipidemia, Hypertension - Past Medical History Cardiac Medical History: Reports: Hx Congestive Heart Failure, Hx Coronary Artery Disease, Hx Heart Attack - History of, Hx Hypertension Denies: Hx Hypercholesterolemia Pulmonary Medical History: Reports: Hx Bronchitis, Hx COPD, Hx Respiratory Failure Neurological Medical History: Reports: Hx Seizures - Seizures when drinking states he has not drank in 16 years Endocrine Medical History: Denies: Hx Diabetes Mellitus Type 1, Hx Diabetes Mellitus Type 2, Hx Hyperthyroidism, Hx Hypothyroidism Renal/ Medical History: Denies: Hx Peritoneal Dialysis GI Medical History: Denies: Hx Cirrhosis, Hx Gastroesophageal Reflux Disease, Hx Hepatitis Musculoskeletal Medical History: Reports Hx Arthritis, Reports Hx Musculoskeletal Deformity - degenerative disc disease, Reports Hx Musculoskeletal Trauma Psychiatric Medical History: Reports: Hx Attention Deficit Hyperactivity Disorder, Hx Bipolar Disorder, Hx Depression - major, Hx Schizoaffective Disorder Traumatic Medical History: Reports: Hx Fractures, Hx Spine Fracture - States "back in 2 places" Infectious Medical History: Denies: Hx Hepatitis Review of Systems - Review of Systems Notes: Dictated Physical Exam - Vital signs Vitals: Resp Pulse Ox 23 H 99 09/26/18 13:30 09/26/18 13:30 - Notes Notes: Dictated Course - Re-evaluation Re-evalutation: 09/26/18 13:45 Vitals reviewed. Patient arrived by EMS on BiPAP. He received 4 albuterol treatments, one DuoNeb, aspirin 324 mg and 1 sublingual nitro. Patient is currently chest pain-free. His EKG shows LVH with ST depressions laterally. Comparison EKG from 09/04/[address] shows [address] of [address] depressions. He has no ST elevation. Patient was refusing BiPAP and while on 6 L nasal cannula oxygen he had desaturation to 84%. BiPAP was replaced. Patient currently tolerating BiPAP 09/26/18 14:35 Patient reevaluated hand is still tolerating BiPAP. His oxygen is 97%. Heart rate 66. Chest x-ray showed no acute process. His lab work is unremarkable. Patient will be admitted to the ICU for further management. Case discussed with Dr. Wood who is accepted admission. Patient in agreement with this plan. 09/26/18 14:37 Laboratory 09/26/18 09/26/18 09/26/18 13:35 13:35 13:35 WBC 5.3 RBC 4.90 Hgb 15.1 Hct 43.7 MCV 89 MCH 30.7 MCHC 34.5 RDW 14.7 H Plt Count 197 Seg Neutrophils % 60.9 Lymphocytes % 24.9 Monocytes % 7.1 Eosinophils % 7.0 H Basophils % 0.1 Absolute Neutrophils 3.2 Absolute Lymphocytes 1.3 Absolute Monocytes 0.4 Absolute Eosinophils 0.4 Absolute Basophils 0.0 Sodium 142.8 Potassium 4.4 Chloride 101 Carbon Dioxide 29 Anion Gap 13 BUN 6 L Creatinine 0.84 Est GFR ( Amer) > 60 Est GFR (Non-Af Amer) > 60 Glucose 105 Calcium 9.6 Troponin I < 0.012 Chest X-Ray 09/26/18 13:39 IMPRESSION: No acute abnormality of the lungs in AP projection. - Vital Signs Vital signs: Temp Pulse Resp BP Pulse Ox 98.1 F 23 H 99 09/26/18 14:00 09/26/18 13:30 09/26/18 13:30 - Laboratory Result Diagrams: 09/26/18 13:35 09/26/18 13:35 Laboratory results interpreted by me: 09/26/18 09/26/18 13:35 13:35 RDW 14.7 H Eosinophils % 7.0 H BUN 6 L - EKG Interpretation by Me Additional EKG results interpreted by me: 09/26/18 13:47 Interpreted by myself [id number]: Sinus tachycardia, rate 104, normal axis, no ectopy, LVH, ST depression laterally, no significant change from 09/04/18 Critical Care Note - Critical Care Note Total time excluding time spent on procedures (mins): 40 Comments: Respiratory failure. Potential for respiratory status decline. Close monitoring. Hypoxia Discharge - Discharge Clinical Impression: COPD exacerbation Respiratory failure Qualifiers: Chronicity: acute Respiratory failure complication: hypoxia Qualified Code(s): J96.01 - Acute respiratory failure with hypoxia Condition: Stable Disposition: ADMITTED INPATIENT Admitting Provider: Hospitalist Unit Admitted: ICU Referrals: MELONIE WESTBROOK PA-C [NO LOCAL MD] - Follow up as needed
[2018-09-26 13:54] LABS: ABSOLUTE EOSINOPHILS # (AUTO) 0.4 10^3/uL (0.0-0.6); ABSOLUTE LYMPHOCYTES (AUTO) 1.3 10^3/uL (0.5-4.7); ABSOLUTE MONOCYTES (AUTO) 0.4 10^3/uL (0.1-1.4); ABSOLUTE NEUT (AUTO) 3.2 10^3/uL (1.7-8.2); BASOPHILS % (AUTO) 0.1 % (0-2); HEMATOCRIT 43.7 % (37.9-51.0); HEMOGLOBIN 15.1 g/dL (13.5-17.0); LYMPHOCYTES % (AUTO) 24.9 % (13-45); MEAN CORPUSCULAR HEMOGLOBIN 30.7 pg (27.0-33.4); MEAN CORPUSCULAR HGB CONC 34.5 g/dL (32.0-36.0); MEAN CORPUSCULAR VOLUME 89 fl (80-97); MONOCYTES % (AUTO) 7.1 % (3-13); PLATELET COUNT 197 10^3/uL (150-450); RED CELL DISTRIBUTION WIDTH 14.7 % (11.5-14.0); SEGMENTED NEUTROPHILS % (AUTO) 60.9 % (42-78); TOTAL CELLS COUNTED % (AUTO) 100 %; WHITE BLOOD COUNT 5.3 10^3/uL (4.0-10.5)
[2018-09-26 14:14] LABS: ANION GAP 13 (5-19); BLOOD UREA NITROGEN 6 mg/dL (7-20); CALCIUM 9.6 mg/dL (8.4-10.2); CARBON DIOXIDE 29 mmol/L (22-30); CHLORIDE 101 mmol/L (98-107); GLUCOSE 105 mg/dL (75-110); POTASSIUM 4.4 mmol/L (3.6-5.0); SODIUM 142.8 mmol/L (137-145)
--- NOTE | 2018-09-26 14:17 | RADIOLOGY REPORT (SQ) ---
EXAM DESCRIPTION: CHEST SINGLE VIEW COMPLETED DATE/TIME: 09/26/2018 1:59 pm REASON FOR STUDY: SOB COMPARISON: 09/04/2018 EXAM PARAMETERS: NUMBER OF VIEWS: ONE TECHNIQUE: Single frontal radiographic view of the chest acquired. RADIATION DOSE: NA LIMITATIONS: None. FINDINGS: LUNGS AND PLEURA: No opacities, masses or pneumothorax. No pleural effusion. MEDIASTINUM AND HILAR STRUCTURES: No masses. Contour normal. HEART AND VASCULAR STRUCTURES: Heart normal in size. Normal vasculature. BONES: No acute findings. HARDWARE: None in the chest. OTHER: No other significant finding. IMPRESSION: No acute abnormality of the lungs in AP projection. TECHNICAL DOCUMENTATION: JOB ID: [id number] [employer]- All Rights Reserved Reading location - IP/workstation name: [email or web address]
[2018-09-26 14:50] LABS: ARTERIAL BLOOD BASE EXCESS 2.1 mmol/L; ARTERIAL BLOOD H2CO3 1.26 mmol/L (1.05-1.35); ARTERIAL BLOOD HCO3 26.7 mmol/L (20-24); ARTERIAL BLOOD PCO2 41.8 mmHg (35-45); ARTERIAL BLOOD PH 7.42 (7.35-7.45); ARTERIAL BLOOD PO2 153.8 mmHg (80-100)
[2018-09-26 15:03] LABS: ARTERIAL BLOOD FIO2 99%
[2018-09-26] MEDS ORDERED: ONDANSETRON 4 MG TAB.RAPDIS PO PRN (15:08)
[2018-09-26] MEDS ORDERED: TEMAZEPAM 7.5 MG CAPSULE PO PRN (15:08)
[2018-09-26] MEDS ORDERED: ONDANSETRON HCL INJ/PF 4 MG/2 ML SDV IV PRN (15:08)
[2018-09-26] MEDS ORDERED: MAG HYDROX/AL HYDROX/SIMETH SUSP 30 ML UDCUP PO PRN (15:08)
[2018-09-26] MEDS ORDERED: ACETAMINOPHEN 325 MG TABLET PO PRN (15:18)
[2018-09-26] MEDS ORDERED: ACETAMINOPHEN 650 MG SUPP.RECT PR PRN (15:18)
[2018-09-26] MEDS ORDERED: ALBUTEROL SULFATE 0.083% NEB 2.5 MG/3 ML AMPUL NEB PRN (15:18)
[2018-09-26] MEDS ORDERED: HYDRALAZINE HCL INJ/PF 20 MG/1 ML SDV IV PRN (15:18)
[2018-09-26] MEDS ORDERED: MORPHINE SULFATE 10 MG/ML INJ IV PRN ×3 (15:18)
[2018-09-26] MEDS ORDERED: HYDROXYZINE PAMOATE 25 MG CAPSULE PO PRN (15:20)
[2018-09-26 16:39] LABS: CREATINE KINASE MB 1.57 ng/mL (<4.55)
[2018-09-26] MEDS: LEVALBUTEROL HCL NEB 1.25 MG/3 ML AMPUL NEB SCH (16:39)
[2018-09-26] MEDS: IPRATROPIUM BROMIDE 0.02% NEB 0.5 MG/2.5 ML AMPUL NEB SCH (16:40)
[2018-09-26 16:48] LABS: TROPONIN I < 0.012 ng/mL
[2018-09-26] MEDS: DOCUSATE SODIUM 100 MG CAPSULE PO SCH (19:27)
[2018-09-26] MEDS: METHYLPREDNISOLONE INJ 40 MG/1 ML SDV IV SCH ×2 (19:27→23:03)
[2018-09-26] MEDS: LANSOPRAZOLE 30 MG TAB.RAP.DR PO SCH (19:27)
[2018-09-26] MEDS: BUSPIRONE HCL 10 MG TABLET PO SCH (19:27)
[2018-09-26] MEDS: OLANZAPINE 5 MG TABLET PO SCH (19:27)
[2018-09-26] MEDS: BUDESONIDE NEB 0.5 MG/2 ML AMPUL NEB SCH (19:38)
--- NOTE | 2018-09-26 19:43 | PDOC H&P ---
History of Present Illness Admission Date/PCP: 09/26/18 15:08 KATHIA MORALES MD Patient complains of: Chest pain History of Present Illness: GALI CHURCH JR is a 58 year old male who presented to the emergency room with a 1 day history of intermittent chest pains which he describes as sharp nonradiating pain in the substernal chest of a few seconds to several minutes in duration and moderate to severe intensity. He has not identified any aggravating or ameliorating factors but does admit one prior episode of similar pain that occurred when he had his myocardial infarction. When seen in the emergency room he was found to have an negative chest x-ray and normal cardiac enzymes. He came progressively more dyspneic throughout his ER course and was initially treated with oxygen but eventually required BiPAP to obtain a level of oxygenation. He does have a history of severe COPD and as such was admitted to the intensive care unit for further evaluation and treatment of his respiratory status and finish of serial enzymes and EKGs to evaluate his cardiac status. Past Medical History Cardiac Medical History: Reports: Congestive Heart Failure, Coronary Artery Disease, Myocardial Infarction - History of, Hypertension Denies: DVT, Hyperlipidema, Pulmonary Embolism Pulmonary Medical History: Reports: Bronchitis, Chronic Obstructive Pulmonary Disease (COPD), Respiratory Failure EENT Medical History: Reports: None Neurological Medical History: Reports: Seizures - Seizures when drinking states he has not drank in 16 years Denies: Multiple Sclerosis Endocrine Medical History: Denies: Diabetes Mellitus Type 1, Diabetes Mellitus Type 2, Hyperthyroidism, Hypothyroidism Renal/ Medical History: Denies: Chronic Kidney Disease, Nephrolithiasis Malignancy Medical History: Reports: None GI Medical History: Denies: Cirrhosis, Gastroesophageal Reflux Disease, Hepatitis Musculoskeltal Medical History: Reports: Arthritis Denies: Gout Psychiatric Medical History: Reports: Attention Deficit Hyperactivity Disorder, Bipolar Disorder, Depression - major, Schizoaffective Disorder Traumatic Medical History: Reports: None Hematology: Reports: Anemia, Bleeding Tendencies Infectious Medical History: Reports: None Past Surgical History Past Surgical History: Reports: None Social History Lives with: Friend Smoking Status: Current Some Day Smoker Cigarettes Packs Per Day: 1 Frequency of Alcohol Use: None Hx Recreational Drug Use: No Drugs: None Hx Prescription Drug Abuse: Yes - Advance Directive Resuscitation Status: Full Code Surrogate healthcare decision maker:: Wayne Barfield Family History Family History: CAD, Hyperlipidemia, Hypertension Parental Family History Reviewed: Yes Children Family History Reviewed: NA Sibling(s) Family History Reviewed.: Yes Medication/Allergy Home Medications: Albuterol Sulfate [Proair HFA Inhalation Aerosol 8.5 gm MDI] 2 puff IH Q6HP PRN 09/26/18 Benztropine Mesylate [Cogentin 1 mg Tablet] 1 mg PO QHS 09/26/18 Dextroamphetamine/Amphetamine [Adderall 30 mg Tablet] 30 mg PO [id number] Dextroamphetamine/Amphetamine [Adderall 30 mg Tablet] 30 mg PO DAILY@1400 Divalproex Sodium [Depakote] 500 mg PO Q12 09/26/18 Metoprolol Succinate [Toprol Xl 25 mg Tab.sr] 25 mg PO DAILY 09/26/18 Oxycodone HCl/Acetaminophen [Percocet 5-325 mg Tablet] 1 tab PO Q6HP PRN Tiotropium [place] [Spiriva Handihaler 5 Cap/Kit (18 Mcg/Cap)] 1 puff IH DAILY 09/26/18 Allergies/Adverse Reactions: No Known Allergies Allergy (Verified 08/13/18 09:00) Review of Systems Constitutional: ABSENT: chills, fever(s) Eyes: ABSENT: visual disturbances, other - Ocular pain Ears: ABSENT: hearing changes, other - Ear pain Nose, Mouth, and Throat: ABSENT: mouth pain, sore throat Cardiovascular: PRESENT: as per HPI, chest pain, dyspnea on exertion. ABSENT: edema, orthropnea, palpitations Respiratory: PRESENT: dyspnea. ABSENT: cough, hemoptysis, sputum Gastrointestinal: ABSENT: abdominal pain, diarrhea, heartburn, nausea, vomiting Genitourinary: ABSENT: dysuria, hematuria Musculoskeletal: ABSENT: deformity, joint swelling Integumentary: ABSENT: pruritus, rash Neurological: ABSENT: convulsions, tremor(s) Psychiatric: ABSENT: anxiety, depression Endocrine: ABSENT: cold intolerance, heat intolerance Hematologic/Lymphatic: ABSENT: easy bleeding, easy bruising Allergic/Immunologic: ABSENT: seasonal rhinorrhea, other - Insect bite allergy Physical Exam Vital Signs: Temp Pulse Resp BP Pulse Ox 98.1 F 94 23 H 123/73 97 09/26/18 14:00 09/26/18 17:33 09/26/18 18:00 09/26/18 17:31 09/26/18 18:00 Intake & Output 09/24/18 09/25/18 09/26/18 23:59 23:59 23:59 Output Total 0 Balance 0 Weight 65.8 kg General appearance: PRESENT: no acute distress, cooperative, other - Wearing a BiPAP mask with an excellent seal Head exam: PRESENT: atraumatic, normocephalic Eye exam: PRESENT: conjunctiva pink, EOMI Ear exam: PRESENT: normal external ear exam. ABSENT: drainage Mouth exam: PRESENT: neck supple, tongue midline Neck exam: ABSENT: thyromegaly, tracheal deviation Respiratory exam: PRESENT: decreased breath sounds - Moderately decreased breath sounds throughout all mccarthy with fair to poor air movement., prolonged expiratory phas - Moderate to severely prolonged expiratory phase, symmetrical, tachypnea - Respiratory rate 36-44., wheezes - Very faint high-pitched end expiratory wheezes Pulses: PRESENT: normal radial pulses, normal dorsalis pedis pul Vascular exam: PRESENT: normal capillary refill. ABSENT: pallor GI/Abdominal exam: PRESENT: normal bowel sounds, soft Rectal exam: PRESENT: deferred Extremities exam: ABSENT: joint swelling, pedal edema Musculoskeletal exam: ABSENT: deformity, dislocation Neurological exam: PRESENT: alert, oriented to person, oriented to place, oriented to time, oriented to situation, CN II-XII grossly intact. ABSENT: motor sensory deficit Psychiatric exam: PRESENT: appropriate affect, normal mood Skin exam: PRESENT: dry, intact, warm Results Laboratory Results: 09/26/18 09/26/18 15:51 15:51 Creatine Kinase 49 L CK-MB (CK-2) 1.57 Troponin I < 0.012 EKG Comments: EKG shows a sinus tachycardia with a rate of 105 as well as left ventricular hypertrophy with fairly pronounced repolarization changes. Impressions: Chest X-Ray 09/26/18 13:39 IMPRESSION: No acute abnormality of the lungs in AP projection. Status: Image reviewed by me - Chest x-ray shows hyperinflation with flattening of the diaphragms and no evidence of acute airspace disease. The overall picture is that of moderate to severe COPD. Assessment & Plan - Diagnosis (1) Acute on chronic respiratory failure with hypoxemia Is this a current diagnosis for this admission?: Yes Plan: Patient will be treated with oxygen supplementation and advanced airway pressure support devices as needed. The patient has required intubation in the past due to his respiratory failure. Additionally will be aggressively treated with a pulmonary toilet and intravenous steroids. Patient will follow in the ICU. (2) COPD exacerbation Is this a current diagnosis for this admission?: Yes Plan: Patient be treated aggressively with intravenous steroids as well as an aggressive pulmonary toilet utilizing Xopenex and Atrovent albuterol and budesonide. Will be reassessed with serial exams and daily lab work will be evaluated utilizing a CBC and metabolic profile. (3) Bipolar 1 disorder Is this a current diagnosis for this admission?: Yes - Time Time Spent: Greater than 70 Minutes Smoking Cessation Education: 3 to 10 minutes Medications reviewed and adjusted accordingly: Yes Anticipated discharge: Home - Inpatient Certification Based on my medical assessment, after consideration of the patient's comorbidities, presenting symptoms, or acuity I expect that the services needed warrant INPATIENT care.: Yes I certify that my determination is in accordance with my understanding of Medicare's requirements for reasonable and necessary INPATIENT services [42 CFR 412.3e].: Yes Medical Necessity: Need For Continuous Telemetry Monitoring, Need for Nebulizer Therapy and Monitoring of Response, Risk of Complication if Not Cared For in Hospital
[2018-09-26 21:53] LABS: CREATINE KINASE MB 1.24 ng/mL (<4.55); TROPONIN I 0.013 ng/mL
[2018-09-26] MEDS ORDERED: BENZTROPINE MESYLATE 1 MG TABLET PO SCH (22:00)
[2018-09-27] MEDS: LEVALBUTEROL HCL NEB 1.25 MG/3 ML AMPUL NEB SCH ×2 (00:18→09:01)
[2018-09-27] MEDS: IPRATROPIUM BROMIDE 0.02% NEB 0.5 MG/2.5 ML AMPUL NEB SCH ×2 (00:18→09:02)
[2018-09-27 03:18] LABS: ABSOLUTE LYMPHOCYTES (AUTO) 0.4 10^3/uL (0.5-4.7); ABSOLUTE MONOCYTES (AUTO) 0.1 10^3/uL (0.1-1.4); ABSOLUTE NEUT (AUTO) 5.3 10^3/uL (1.7-8.2); BASOPHILS % (AUTO) 0.4 % (0-2); EOSINOPHILS % (AUTO) 0.1 % (0-6); HEMATOCRIT 39.4 % (37.9-51.0); HEMOGLOBIN 13.5 g/dL (13.5-17.0); LYMPHOCYTES % (AUTO) 6.6 % (13-45); MEAN CORPUSCULAR HEMOGLOBIN 30.3 pg (27.0-33.4); MEAN CORPUSCULAR HGB CONC 34.2 g/dL (32.0-36.0); MEAN CORPUSCULAR VOLUME 89 fl (80-97); PLATELET COUNT 198 10^3/uL (150-450); RED BLOOD COUNT 4.45 10^6/uL (4.35-5.55); RED CELL DISTRIBUTION WIDTH 14.2 % (11.5-14.0); SEGMENTED NEUTROPHILS % (AUTO) 91.9 % (42-78); TOTAL CELLS COUNTED % (AUTO) 100 %; WHITE BLOOD COUNT 5.8 10^3/uL (4.0-10.5)
[2018-09-27 03:54] LABS: ANION GAP 9 (5-19); BLOOD UREA NITROGEN 15 mg/dL (7-20); CALCIUM 9.6 mg/dL (8.4-10.2); CARBON DIOXIDE 28 mmol/L (22-30); CHLORIDE 101 mmol/L (98-107); CHOLESTEROL 128.98 mg/dL (0-200); CREATINE KINASE 40 U/L (55-170); GLUCOSE 139 mg/dL (75-110); POTASSIUM 4.9 mmol/L (3.6-5.0); TRIGLYCERIDES 37 mg/dL (<150)
[2018-09-27 04:05] LABS: DIRECT LDL 71 mg/dL (<100)
[2018-09-27 04:06] LABS: CREATINE KINASE MB 1.22 ng/mL (<4.55); NT PRO BNP 456 pg/mL (5-900)
[2018-09-27 04:08] LABS: TROPONIN I < 0.012 ng/mL
[2018-09-27 04:10] LABS: FREE T3 3.55 pg/mL (2.77-5.27); FREE T4 (FREE THYROXINE) 1.03 ng/dL (0.78-2.19)
[2018-09-27 04:24] LABS: THYROID STIMULATING HORMONE 0.14 uIU/mL (0.47-4.68)
[2018-09-27] MEDS: LANSOPRAZOLE 30 MG TAB.RAP.DR PO SCH (05:30)
[2018-09-27] MEDS: METHYLPREDNISOLONE INJ 40 MG/1 ML SDV IV SCH (05:30)
[2018-09-27] MEDS: BUDESONIDE NEB 0.5 MG/2 ML AMPUL NEB SCH (09:02)
[2018-09-27] MEDS ORDERED: METOPROLOL SUCCINATE 25 MG TAB.SR.24H PO SCH (10:00)
[2018-09-27] MEDS ORDERED: ASPIRIN 81 MG TABLET, ENT COATED PO SCH (10:00)
[2018-09-27] MEDS ORDERED: ARIPIPRAZOLE 5 MG TABLET PO SCH (10:00)
[2018-09-27] MEDS ORDERED: ENOXAPARIN SODIUM INJ 40 MG/0.4 ML DISP.SYRIN SUBCUT SCH (10:00)
[2018-09-27] MEDS ORDERED: ESCITALOPRAM OXALATE 10 MG TABLET PO SCH (10:00)
[2018-09-27] MEDS: BUSPIRONE HCL 10 MG TABLET PO SCH (10:31)
[2018-09-27] MEDS: DOCUSATE SODIUM 100 MG CAPSULE PO SCH (10:31)
[2018-09-27] MEDS: OLANZAPINE 5 MG TABLET PO SCH (10:32)
--- NOTE | 2018-09-27 10:40 | EKG REPORT ---
SEVERITY:- ABNORMAL ECG - SINUS TACHYCARDIA RIGHT ATRIAL ABNORMALITY LATERAL INFARCT, AGE INDETERMINATE ABNORMAL T, CONSIDER ISCHEMIA, DIFFUSE LEADS BORDERLINE PROLONGED QT INTERVAL : Confirmed by: Ivan Oseguera 27-Sep-2018 10:38:48
--- NOTE | 2018-09-27 10:40 | EKG REPORT ---
SEVERITY:- ABNORMAL ECG - SINUS TACHYCARDIA LVH WITH SECONDARY REPOLARIZATION ABNORMALITY ST DEPRESSION, CONSIDER ISCHEMIA, ANT-LAT LDS : Confirmed by: Ivan Oseguera 27-Sep-2018 10:38:52
[2018-09-27] MEDS ORDERED: OXYCODONE-ACETAMINOPHEN 5-325 MG TABLET PO PRN (12:28)
[2018-09-27 14:30] VITALS: BP 117/72
--- NOTE | 2018-09-27 14:38 | PDOC DISCHARGE SUMMARY ---
General - Admit/Disc Date/PCP Admission Date/Primary Care Provider: 09/26/18 15:08 KATHIA MORALES MD Discharge Date: 09/27/18 - Discharge Diagnosis (1) Chest pain Is this a current diagnosis for this admission?: Yes Summary: Patient was admitted to the intensive care unit and serial cardiac enzymes and EKGs were obtained. No findings consistent with acute myocardial ischemia or injury were noted. Patient chest pain had resolved prior to his arrival in the emergency room and he has had no further chest pain since admission. He will receive no specific treatment for chest pain at the time of discharge. (2) Acute on chronic respiratory failure with hypoxemia Is this a current diagnosis for this admission?: Yes Summary: Patient will be treated with oxygen supplementation and advanced airway pressure support devices as needed. The patient has required intubation in the past due to his respiratory failure. Additionally will be aggressively treated with a pulmonary toilet and intravenous steroids. Patient will follow in the ICU. 09/27/2018: Patient responded rapidly to his BiPAP therapy and within a few hours he was able to be taken off BiPAP and was tolerating reduction to room air utilizing decreasing flow of nasal cannula oxygen. He was eventually weaned to room air and was able to tolerate moderate activity without dyspnea or discomfort. His treatment with aggressive pulmonary toilet and intravenous steroids was discontinued and he will be placed on oral short burst of prednisone (50 mg daily) for 3 days upon discharge. (3) COPD exacerbation Is this a current diagnosis for this admission?: Yes Summary: Patient will be treated aggressively with intravenous steroids as well as an aggressive pulmonary toilet utilizing Xopenex and Atrovent albuterol and budesonide. Will be reassessed with serial exams and daily lab work will be evaluated utilizing a CBC and metabolic profile. 09/27/2018: Patient responded well to his aggressive pulmonary toilet and intravenous steroids with rapid resolution of his COPD exacerbation symptoms. He will be treated on discharge with a burst dose of steroids administered orally ( prednisone 50 mg daily times 3 days) to finish his course of therapy on an outpatient basis. (4) Bipolar 1 disorder Is this a current diagnosis for this admission?: Yes Summary: Patient's bipolar disorder was treated by continuing his usual medications throughout his hospital course. - Additional Information Resuscitation Status: Full Code Discharge Diet: As Tolerated, Cardiac Discharge Activity: Activity As Tolerated, Walk Frequently Prescriptions: Aripiprazole [Abilify 5 mg Tablet] 5 mg PO DAILY 30 Days #30 tablet Aspirin [Ecotrin 81 mg EC Tablet] 81 mg PO DAILY 30 Days #30 tabec Escitalopram Oxalate [Lexapro 10 mg Tablet] 10 mg PO DAILY 30 Days #30 tablet Olanzapine [Zyprexa 5 mg Tablet] 5 mg PO Q12 #60 tablet Prednisone 50 mg PO PCBRKFST 3 Days #3 tablet Home Medications: Albuterol Sulfate [Proair HFA Inhalation Aerosol 8.5 gm MDI] 2 puff IH Q6HP PRN 09/26/18 Benztropine Mesylate [Cogentin 1 mg Tablet] 1 mg PO QHS 09/26/18 Dextroamphetamine/Amphetamine [Adderall 30 mg Tablet] 30 mg PO ACBRKFST Dextroamphetamine/Amphetamine [Adderall 30 mg Tablet] 30 mg PO DAILY@1400 Divalproex Sodium [Depakote] 500 mg PO Q12 09/26/18 Metoprolol Succinate [Toprol Xl 25 mg Tab.sr] 25 mg PO DAILY 09/26/18 Oxycodone HCl/Acetaminophen [Percocet 5-325 mg Tablet] 1 tab PO Q6HP PRN Tiotropium [place] [Spiriva Handihaler 5 Cap/Kit (18 Mcg/Cap)] 1 puff IH DAILY 09/26/18 Aripiprazole [Abilify 5 mg Tablet] 5 mg PO DAILY 30 Days #30 tablet 09/27/18 Aspirin [Ecotrin 81 mg EC Tablet] 81 mg PO DAILY 30 Days #30 tabec 09/27/18 Buspirone HCl [Buspar 10 mg Tablet] 10 mg PO BID 30 Days #60 tablet 09/27/18 Escitalopram Oxalate [Lexapro 10 mg Tablet] 10 mg PO DAILY 30 Days #30 tablet Olanzapine [Zyprexa 5 mg Tablet] 5 mg PO Q12 #60 tablet 09/27/18 Prednisone 50 mg PO PCBRKFST 3 Days #3 tablet 09/27/18 History of Present Illness Patient complains of: Chest pain History of Present Illness: GALI Narda CHURCH JR is a 58 year old male who presented to the emergency room with a 1 day history of intermittent chest pains which he describes as sharp nonradiating pain in the substernal chest of a few seconds to several minutes in duration and moderate to severe intensity. He has not identified any aggravating or ameliorating factors but does admit one prior episode of similar pain that occurred when he had his myocardial infarction. When seen in the emergency room he was found to have an negative chest x-ray and normal cardiac enzymes. He came progressively more dyspneic throughout his ER course and was initially treated with oxygen but eventually required BiPAP to obtain a level of oxygenation. He does have a history of severe COPD and as such was admitted to the intensive care unit for further evaluation and treatment of his respiratory status and finish of serial enzymes and EKGs to evaluate his cardiac status. Hospital Course Hospital Course: 09/27/2018: Patient's cardiac enzymes remained stable and his EKG showed no evidence of acute myocardial injury or ischemia. His respiratory status resolved quickly with supportive therapy, and aggressive pulmonary toilet and intravenous steroids. Because of his excellent progress he was able to be up and ambulate in the [place] and do activities of daily living without supplemental oxygen. Patient asked to be discharged if possible and this wish will be granted. He will be discharged home in improved and stable condition with his usual medications and a 3-day course of prednisone 50 mg daily. Physical Exam Vital Signs: Temp Pulse Resp BP Pulse Ox 98.3 F 104 H 23 H 108/64 92 09/27/18 05:48 09/27/18 09:02 09/27/18 10:00 09/27/18 09:32 09/27/18 10:00 Intake & Output 09/25/18 09/26/18 09/27/18 23:59 23:59 23:59 Intake Total 1250 Output Total 0 1075 Balance 0 175 Weight 65.8 kg 65.1 kg General appearance: PRESENT: no acute distress, cooperative Head exam: PRESENT: atraumatic, normocephalic Eye exam: PRESENT: conjunctiva pink, EOMI Ear exam: PRESENT: normal external ear exam Mouth exam: PRESENT: neck supple Respiratory exam: PRESENT: clear to auscultation nyasia, decreased breath sounds - Throughout all lung mccarthy, symmetrical, unlabored Cardiovascular exam: PRESENT: RRR. ABSENT: clicks, gallop, rubs Vascular exam: PRESENT: normal capillary refill. ABSENT: pallor GI/Abdominal exam: PRESENT: normal bowel sounds, soft Rectal exam: PRESENT: deferred Extremities exam: ABSENT: joint swelling, pedal edema Musculoskeletal exam: PRESENT: ambulatory, normal inspection. ABSENT: deformity , dislocation Neurological exam: PRESENT: alert, oriented to person, oriented to place, oriented to time, oriented to situation, CN II-XII grossly intact. ABSENT: motor sensory deficit Psychiatric exam: PRESENT: appropriate affect, normal mood Skin exam: PRESENT: dry, intact, warm - [id number] Results Laboratory Results: 09/27/18 03:11 09/27/18 03:11 09/27/18 09/27/18 09/27/18 03:11 03:11 03:11 WBC 5.8 RBC 4.45 Hgb 13.5 Hct 39.4 MCV 89 MCH 30.3 MCHC 34.2 RDW 14.2 H Plt Count 198 Seg Neutrophils % 91.9 H Lymphocytes % 6.6 L Monocytes % 1.0 L Eosinophils % 0.1 Basophils % 0.4 Absolute Neutrophils 5.3 Absolute Lymphocytes 0.4 L Absolute Monocytes 0.1 Absolute Eosinophils 0.0 Absolute Basophils 0.0 Sodium 138.0 Potassium 4.9 Chloride 101 Carbon Dioxide 28 Anion Gap 9 BUN 15 Creatinine 0.80 Est GFR ( Amer) > 60 Est GFR (Non-Af Amer) > 60 Glucose 139 H Calcium 9.6 Magnesium 1.7 Triglycerides 37 Cholesterol 128.98 LDL Cholesterol Direct 71 VLDL Cholesterol 7.0 L HDL Cholesterol 70 TSH 0.14 L Free T4 1.03 Free T3 pg/mL 3.55 09/26/18 09/26/18 09/26/18 15:51 15:51 21:19 Creatine Kinase 49 L 49 L CK-MB (CK-2) 1.57 Troponin I < 0.012 NT-Pro-B Natriuret Pep 09/26/18 09/27/18 09/27/18 21:19 03:11 03:11 Creatine Kinase 40 L CK-MB (CK-2) 1.24 1.22 Troponin I 0.013 < 0.012 NT-Pro-B Natriuret Pep 456 Impressions: Chest X-Ray 09/26/18 13:39 IMPRESSION: No acute abnormality of the lungs in AP projection. Qualifiers - * PATIENT BEING DISCHARGED WITH ANY OF THE FOLLOWING DIAGNOSIS: No Plan Discharge Plan: Discharged home in improved and stable condition Time Spent: Greater than 30 Minutes
== END 2018-09-27 14:51 | disposition home or self-care (01) | DRG 190 ==
LOC: ER 13:29 → EH 15:08 → OBSVTOIN 15:08 → INTOOBSV 15:08 → ICU 17:30
PROVIDERS: ADMIT Emergency Medicine; ATTEND Emergency Medicine
PROC: 5A09357 Assistance with Respiratory Ventilation, Less than 24 Consecutive Hours, Continuous Positive Airway Pressure (ICD-10-PCS; principal; 2018-09-26)
DX: J44.1 Chronic obstructive pulmonary disease with (acute) exacerbation (principal); J96.21 Acute and chronic respiratory failure with hypoxia; I50.9 Heart failure, unspecified; I25.10 Atherosclerotic heart disease of native coronary artery without angina pectoris; M19.90 Unspecified osteoarthritis, unspecified site; I11.0 Hypertensive heart disease with heart failure; F90.9 Attention-deficit hyperactivity disorder, unspecified type; F31.9 Bipolar disorder, unspecified; F25.9 Schizoaffective disorder, unspecified; F17.210 Nicotine dependence, cigarettes, uncomplicated; I25.2 Old myocardial infarction; Z79.51 Long term (current) use of inhaled steroids; Z87.891 Personal history of nicotine dependence; Z82.49 Family history of ischemic heart disease and other diseases of the circulatory system; Z83.438 Family history of other disorder of lipoprotein metabolism and other lipidemia
CPT/HCPCS: 36415; 71045; 80048; 80061; 82550; 82553; 82803; 83036; 83735; 83880; 84439; 84443; 84481; 84484; 85025; 93005; 93010; 94660; 99291; J1650; J2920; J3490

== ENCOUNTER 2018-10-11 09:02 | Inpatient (IN) | payer MEDICAID ==
[2018-10-11] MEDS ORDERED: IPRATROPIUM/ALBUTEROL 0.5-2.5 MG/3 ML AMPUL NEB ONE (09:13)
[2018-10-11] MEDS ORDERED: MAGNESIUM SULFATE/D5W 1 GM/100 ML RTUPB IV ONE (09:13)
--- NOTE | 2018-10-11 09:15 | ER Document Report ---
ED General - General Chief Complaint: Respiratory Distress Stated Complaint: DIFFICULTY BREATHING Time Seen by Provider: 10/11/18 09:11 Notes: Patient is a 58-year-old male with COPD that presents to the emergency department for chief complaint of respiratory distress. History provided by EMS. Patient reportedly was feeling short of breath and went outside to catch some fresh air, and he collapsed onto the ground and according to the patient's it turned purple she called EMS when they arrived the patient's pulse ox was 50% on room air, they used a bag valve mask, to get his pulse ox back up, because the patient was unresponsive, in route the patient became more responsive, they continue to assist breaths, and gave him 125 mg of Solu-Medrol , as well as several DuoNeb breathing treatments. He had a pulse the entire time. After patient was placed on BiPAP, he was answering questions appropriately, states that he was having shortness of breath earlier today, and as mentioned went outside, and he collapsed. He has had episodes in the past where he has been intubated due to his lungs. Past Medical History: Advanced COPD, CAD, hypertension, hyperlipidemia Past Surgical History: Reviewed, no recent surgeries Social History: Admits to smoking cigarettes, no alcohol or drug use. Family History: Reviewed and noncontributory for presenting illness Allergies: Reviewed, see documented allergy list. REVIEW OF SYSTEMS: Other than noted above, the 12 point review of systems was reviewed with the patient and were negative, all pertinent findings are included in the HPI. PHYSICAL EXAMINATION: Vital signs reviewed, nursing noted reviewed. GENERAL: GCS 14, patient talking now, but in respiratory distress HEAD: Atraumatic, normocephalic. EYES: Eyes appear normal, extraocular movements intact, sclera anicteric, conjunctiva are normal. PERRLA ENT: nares patent, oropharynx clear without exudates. Moist mucous membranes. NECK: Normal range of motion, supple without lymphadenopathy LUNGS: Severely diminished lung sounds, faint expiratory wheezing noted throughout all lung mccarthy, acute respiratory distress HEART: Heart rate tachycardic, regular rhythm, no audible murmur ABDOMEN: Soft, nontender, normoactive bowel sounds. No rebound, guarding, or rigidity. No masses appreciated. EXTREMITIES: Nontender, no pitting or edema. NEUROLOGICAL: GCS: 14. Overall mental state improving with BIPAP, no focal neurological deficits. Moves all extremities spontaneously Motor and sensory grossly intact on exam. PSYCH: Somnolent SKIN: Warm, Dry, normal turgor, no rashes or lesions noted on exposed skin TRAVEL OUTSIDE OF THE [place] IN LAST 30 DAYS: No - Related Data Allergies/Adverse Reactions: No Known Allergies Allergy (Verified 10/11/18 11:12) Past Medical History - Social History Smoking Status: Current Every Day Smoker Family History: CAD, Hyperlipidemia, Hypertension - Past Medical History Cardiac Medical History: Reports: Hx Congestive Heart Failure, Hx Coronary Artery Disease, Hx Heart Attack - History of, Hx Hypertension Denies: Hx DVT, Hx Hypercholesterolemia, Hx Pulmonary Embolism Pulmonary Medical History: Reports: Hx Bronchitis, Hx COPD, Hx Respiratory Failure Neurological Medical History: Reports: Hx Seizures - Seizures when drinking states he has not drank in 16 years Endocrine Medical History: Denies: Hx Diabetes Mellitus Type 1, Hx Diabetes Mellitus Type 2, Hx Hyperthyroidism, Hx Hypothyroidism Renal/ Medical History: Denies: Hx Peritoneal Dialysis GI Medical History: Denies: Hx Cirrhosis, Hx Gastroesophageal Reflux Disease, Hx Hepatitis Musculoskeletal Medical History: Reports Hx Arthritis, Denies Hx Gout, Reports Hx Musculoskeletal Deformity - degenerative disc disease, Reports Hx Musculoskeletal Trauma Psychiatric Medical History: Reports: Hx Attention Deficit Hyperactivity Disorder, Hx Bipolar Disorder, Hx Depression - major, Hx Schizoaffective Disorder Traumatic Medical History: Reports: Hx Fractures, Hx Spine Fracture - States "back in 2 places" Infectious Medical History: Denies: Hx Hepatitis Physical Exam - Vital signs Vitals: Resp BP Pulse Ox 26 H 140/88 H 100 10/11/18 09:06 10/11/18 09:06 10/11/18 09:06 Course - Re-evaluation Re-evalutation: Patient seen and examined vital signs reviewed. Laboratory data and imaging were ordered as appropriate for the patient's presenting symptoms and complaint, with consideration of any critical or life threatening conditions that may be associated with their obtained history and exam as noted above. Patient was treated with DuoNeb breathing treatments, he had already received IV Solu-Medrol by EMS Results were reviewed when available and demonstrated negative chest x-ray with the exception of findings consistent with chronic COPD, blood work demonstrated no leukocytosis, ABG was consistent with acute on chronic respiratory failure, with respiratory acidosis The patient was re-evaluated and was much improved after being placed on BiPAP, was having conversations, and stated he overall felt much better. Evaluation was most consistent with acute on chronic respiratory failure, respiratory acidosis Results were discussed with the patient at this point after careful consideration I feel that that patient should be admitted to the hospital. This was discussed with the patient that it is in the best interest for their care to be admitted for further evaluation and management. Patient agreed with this plan of care. A call was placed to the admitted physician, Dr. Varela who graciously accepted the patient onto their service. *Note is created using voice recognition software and may contain spelling, syntax or grammatical errors. Laboratory 10/11/18 10/11/18 10/11/18 09:08 09:08 09:08 WBC 7.5 RBC 4.35 Hgb 13.4 L Hct 39.8 MCV 91 MCH 30.9 MCHC 33.8 RDW 14.2 H Plt Count 248 Seg Neutrophils % 54.5 Lymphocytes % 28.5 Monocytes % 9.0 Eosinophils % 7.9 H Basophils % 0.1 Absolute Neutrophils 4.1 Absolute Lymphocytes 2.1 Absolute Monocytes 0.7 Absolute Eosinophils 0.6 Absolute Basophils 0.0 Carbonic Acid HCO3/H2CO3 Ratio ABG pH ABG pCO2 ABG pO2 ABG HCO3 ABG Total CO2 ABG O2 Saturation ABG Base Excess FiO2 Sodium 141.1 Potassium 5.3 H Chloride 104 Carbon Dioxide 23 Anion Gap 14 BUN 7 Creatinine 0.96 Est GFR ( Amer) > 60 Est GFR (Non-Af Amer) > 60 Glucose 237 H Calcium 9.0 Total Bilirubin 0.4 Direct Bilirubin 0.3 Neonat Total Bilirubin Not Reportable Neonat Direct Bilirubin Not Reportable Neonat Indirect Bili Not Reportable AST 20 ALT 20 L Alkaline Phosphatase 53 Troponin I 0.016 Total Protein 6.3 Albumin 4.0 10/11/18 09:35 WBC RBC Hgb Hct MCV MCH MCHC RDW Plt Count Seg Neutrophils % Lymphocytes % Monocytes % Eosinophils % Basophils % Absolute Neutrophils Absolute Lymphocytes Absolute Monocytes Absolute Eosinophils Absolute Basophils Carbonic Acid 1.52 H HCO3/H2CO3 Ratio 15:1 ABG pH 7.30 L ABG pCO2 50.4 H ABG pO2 181.2 H ABG HCO3 24.2 H ABG Total CO2 25.7 ABG O2 Saturation 99.1 H ABG Base Excess -2.7 FiO2 30% Sodium Potassium Chloride Carbon Dioxide Anion Gap BUN Creatinine Est GFR ( Amer) Est GFR (Non-Af Amer) Glucose Calcium Total Bilirubin Direct Bilirubin Neonat Total Bilirubin Neonat Direct Bilirubin Neonat Indirect Bili AST ALT Alkaline Phosphatase Troponin I Total Protein Albumin Chest X-Ray 10/11/18 09:12 IMPRESSION: COPD. No acute findings. - Vital Signs Vital signs: Temp Pulse Resp BP Pulse Ox 98.5 F 90 22 H 119/65 95 10/11/18 15:51 10/11/18 15:51 10/11/18 15:51 10/11/18 15:51 10/11/18 15:51 - Laboratory Result Diagrams: 10/11/18 09:08 10/11/18 09:08 Laboratory results interpreted by me: 10/11/18 10/11/18 10/11/18 09:08 09:08 09:35 Hgb 13.4 L RDW 14.2 H Eosinophils % 7.9 H Carbonic Acid 1.52 H ABG pH 7.30 L ABG pCO2 50.4 H ABG pO2 181.2 H ABG HCO3 24.2 H ABG O2 Saturation 99.1 H Potassium 5.3 H Glucose 237 H ALT 20 L - EKG Interpretation by Me Additional EKG results interpreted by me: EKG demonstrates sinus tachycardia with a ventricular rate of 108 bpm, normal axis, QTC 451 ms, there is ST depressions in leads II, III, aVF, and V4 through V6, this is compared with prior EKG from 09/27/2018, with actual improvements from his prior EKG. Critical Care Note - Critical Care Note Total time excluding time spent on procedures (mins): 45 Comments: Critical care time 45 minutes exclusive from separate billable procedures for a patient requiring complex medical decision making, and high potential for clinical deterioration. In a patient with acute on chronic respiratory failure requiring noninvasive positive pressure ventilation, and admission to the hospital. Time spent obtaining history from patient or surrogate, discussions with consultants, development of treatment plan with patient or surrogate, evaluation of patient's response to treatment, examination of patient, ordering and performing treatments and interventions, ordering and review of laboratory studies, re-evaluation of patient's condition, ordering and review of radiographic studies and review of old charts Discharge - Discharge Clinical Impression: Respiratory acidosis Acute and chronic respiratory failure Qualifiers: Qualified Code(s): J96.20 - Condition: Stable Disposition: ADMITTED INPATIENT Admitting Provider: Hospitalist - Dr. Varela Unit Admitted: IMCU
[2018-10-11 09:43] LABS: ABSOLUTE EOSINOPHILS # (AUTO) 0.6 10^3/uL (0.0-0.6); ABSOLUTE LYMPHOCYTES (AUTO) 2.1 10^3/uL (0.5-4.7); ABSOLUTE MONOCYTES (AUTO) 0.7 10^3/uL (0.1-1.4); ABSOLUTE NEUT (AUTO) 4.1 10^3/uL (1.7-8.2); BASOPHILS % (AUTO) 0.1 % (0-2); EOSINOPHILS % (AUTO) 7.9 % (0-6); HEMATOCRIT 39.8 % (37.9-51.0); HEMOGLOBIN 13.4 g/dL (13.5-17.0); LYMPHOCYTES % (AUTO) 28.5 % (13-45); MEAN CORPUSCULAR HEMOGLOBIN 30.9 pg (27.0-33.4); MEAN CORPUSCULAR HGB CONC 33.8 g/dL (32.0-36.0); MEAN CORPUSCULAR VOLUME 91 fl (80-97); PLATELET COUNT 248 10^3/uL (150-450); RED BLOOD COUNT 4.35 10^6/uL (4.35-5.55); RED CELL DISTRIBUTION WIDTH 14.2 % (11.5-14.0); SEGMENTED NEUTROPHILS % (AUTO) 54.5 % (42-78); TOTAL CELLS COUNTED % (AUTO) 100 %; WHITE BLOOD COUNT 7.5 10^3/uL (4.0-10.5)
[2018-10-11 09:48] LABS: ALANINE AMINOTRANSFERASE 20 U/L (21-72); ALKALINE PHOSPHATASE 53 U/L (38-126); ANION GAP 14 (5-19); ASPARTATE AMINO TRANSFERASE 20 U/L (17-59); BILIRUBIN,DIRECT 0.3 mg/dL (0.0-0.4); BILIRUBIN,TOTAL 0.4 mg/dL (0.2-1.3); BLOOD UREA NITROGEN 7 mg/dL (7-20); CARBON DIOXIDE 23 mmol/L (22-30); CHLORIDE 104 mmol/L (98-107); GLUCOSE 237 mg/dL (75-110); POTASSIUM 5.3 mmol/L (3.6-5.0); SODIUM 141.1 mmol/L (137-145); TOTAL PROTEIN 6.3 g/dL (6.3-8.2)
--- NOTE | 2018-10-11 09:52 | RADIOLOGY REPORT (SQ) ---
EXAM DESCRIPTION: CHEST SINGLE VIEW COMPLETED DATE/TIME: 10/11/2018 9:42 am REASON FOR STUDY: shortness of breath COMPARISON: 09/26/2018 EXAM PARAMETERS: NUMBER OF VIEWS: One view. TECHNIQUE: Single frontal radiographic view of the chest acquired. RADIATION DOSE: NA LIMITATIONS: None. FINDINGS: LUNGS AND PLEURA: Lung mccarthy remain hyperexpanded. No consolidation or effusions. Sligh t blunting of left costophrenic angle most likely represents pleural thickening. MEDIASTINUM AND HILAR STRUCTURES: No masses. Contour normal. HEART AND VASCULAR STRUCTURES: Heart normal in size. Normal vasculature. BONES: No acute findings. HARDWARE: None in the chest. OTHER: No other significant finding. IMPRESSION: COPD. No acute findings. TECHNICAL DOCUMENTATION: JOB ID: [id number] [employer]- All Rights Reserved Reading location - IP/workstation name: [email or web address]
[2018-10-11 10:08] LABS: ARTERIAL BLOOD BASE EXCESS -2.7 mmol/L; ARTERIAL BLOOD FIO2 30%; ARTERIAL BLOOD H2CO3 1.52 mmol/L (1.05-1.35); ARTERIAL BLOOD HCO3 24.2 mmol/L (20-24); ARTERIAL BLOOD O2 SATURATION 99.1 % (94-98); ARTERIAL BLOOD PCO2 50.4 mmHg (35-45); ARTERIAL BLOOD PO2 181.2 mmHg (80-100); ARTERIAL BLOOD TOTAL CO2 25.7 mmol/L (23-27)
[2018-10-11] MEDS ORDERED: LEVALBUTEROL HCL NEB 1.25 MG/3 ML AMPUL NEB PRN (12:33)
[2018-10-11] MEDS ORDERED: ONDANSETRON HCL INJ/PF 4 MG/2 ML SDV IV PRN (12:33)
[2018-10-11] MEDS ORDERED: ACETAMINOPHEN 325 MG TABLET PO PRN (12:33)
--- NOTE | 2018-10-11 12:33 | PDOC H&P ---
History of Present Illness Admission Date/PCP: 10/11/18 11:29 KATHIA MORALES MD Patient complains of: Shortness of breath. History of Present Illness: GALI CHURCH JR is a 58 year old male 58-year-old male with history of COPD on home oxygen 3 L via nasal cannula uses nebulizers at home, history of coronary artery disease status post OH, bipolar disorder, osteoarthritis, hypertension, ex-smoker, came to the emergency room actually brought to the emergency room after complaining of severe shortness of breath as per the patient's symptoms are started symptoms started as a severe wheezing and shortness of breath. Around 3 AM this morning and the symptoms are not improved despite using nebulizers at home he called EMS EMS at the time of EMS arrival pulse ox was around 51% he was given nebulizer treatments was placed on BiPAP and was brought to the emergency room for further management by the time she came to the emergency room he was much more responsive more alert and was placed on BiPAP and started on IV Solu-Medrol and nebulizer treatments were continued. When he went to talk to the patient patient was able to communicate well and able to provide a detailed history. According to him he went to the bed as usual without any problems woke up this morning around 3 AM with severe shortness of breath and denies any fevers he has this chronic cough with occasional whitish sputum denies any fevers denies any chills denies any chest pains denies any nausea vomiting diarrhea constipation. Planning of runny nose recently clear nasal discharge. Denies any headaches dizziness or falls. He has any new rash rashes. Past Medical History Cardiac Medical History: Reports: Congestive Heart Failure, Coronary Artery Disease, Myocardial Infarction - History of, Hypertension Denies: DVT, Hyperlipidema, Pulmonary Embolism Pulmonary Medical History: Reports: Bronchitis, Chronic Obstructive Pulmonary Disease (COPD), Respiratory Failure Neurological Medical History: Reports: Seizures - Seizures when drinking states he has not drank in 16 years Endocrine Medical History: Denies: Diabetes Mellitus Type 1, Diabetes Mellitus Type 2, Hyperthyroidism, Hypothyroidism GI Medical History: Denies: Cirrhosis, Gastroesophageal Reflux Disease, Hepatitis Musculoskeltal Medical History: Reports: Arthritis Denies: Gout Psychiatric Medical History: Reports: Attention Deficit Hyperactivity Disorder, Bipolar Disorder, Depression - major, Schizoaffective Disorder Hematology: Reports: Anemia, Bleeding Tendencies Past Surgical History Past Surgical History: Reports: Other - Patient states he had left pleural effusion status post chest tube placemen Social History Smoking Status: Current Every Day Smoker Frequency of Alcohol Use: None Hx Recreational Drug Use: No Drugs: None Hx Prescription Drug Abuse: Yes Family History Family History: CAD, Hyperlipidemia, Hypertension Parental Family History Reviewed: Yes Children Family History Reviewed: Yes Sibling(s) Family History Reviewed.: Yes Medication/Allergy Home Medications: Albuterol Sulfate [Proair HFA Inhalation Aerosol 8.5 gm MDI] 2 puff IH Q6HP PRN 09/26/18 Benztropine Mesylate [Cogentin 1 mg Tablet] 1 mg PO QHS 09/26/18 Dextroamphetamine/Amphetamine [Adderall 30 mg Tablet] 30 mg PO ACBRKFST Dextroamphetamine/Amphetamine [Adderall 30 mg Tablet] 30 mg PO DAILY@1400 Divalproex Sodium [Depakote] 500 mg PO Q12 09/26/18 Metoprolol Succinate [Toprol Xl 25 mg Tab.sr] 25 mg PO DAILY 09/26/18 Oxycodone HCl/Acetaminophen [Percocet 5-325 mg Tablet] 1 tab PO Q6HP PRN Tiotropium Republic [Spiriva Handihaler 5 Cap/Kit (18 Mcg/Cap)] 1 puff IH DAILY 09/26/18 Aripiprazole [Abilify 5 mg Tablet] 5 mg PO DAILY 30 Days #30 tablet 09/27/18 Aspirin [Ecotrin 81 mg EC Tablet] 81 mg PO DAILY 30 Days #30 tabec 09/27/18 Buspirone HCl [Buspar 10 mg Tablet] 10 mg PO BID 30 Days #60 tablet 09/27/18 Escitalopram Oxalate [Lexapro 10 mg Tablet] 10 mg PO DAILY 30 Days #30 tablet Olanzapine [Zyprexa 5 mg Tablet] 5 mg PO Q12 #60 tablet 09/27/18 Prednisone 50 mg PO PCBRKFST 3 Days #3 tablet 09/27/18 Allergies/Adverse Reactions: No Known Allergies Allergy (Verified 10/11/18 11:12) Review of Systems Constitutional: PRESENT: chills. ABSENT: fatigue, fever(s), weakness Eyes: ABSENT: visual disturbances Ears: ABSENT: hearing changes Nose, Mouth, and Throat: PRESENT: other - Runny nose with clear drainage. Respiratory: PRESENT: dyspnea, other - With shortness of breath associated with wheezing. Gastrointestinal: ABSENT: diarrhea, heartburn, nausea, vomiting Neurological: ABSENT: abnormal gait, abnormal speech, confusion, dizziness, focal weakness, syncope Psychiatric: ABSENT: anxiety, depression, homidical ideation, suicidal ideation Physical Exam Vital Signs: Temp Pulse Resp BP Pulse Ox 18 105/80 100 10/11/18 12:00 10/11/18 10:45 10/11/18 12:00 General appearance: PRESENT: mild distress Head exam: PRESENT: atraumatic Eye exam: PRESENT: PERRLA Neck exam: ABSENT: carotid bruit, JVD, lymphadenopathy, thyromegaly Respiratory exam: PRESENT: accessory muscle use, decreased breath sounds, rhonchi, wheezes, other - Patient is on BiPAP. Cardiovascular exam: PRESENT: tachycardia GI/Abdominal exam: PRESENT: normal bowel sounds, soft. ABSENT: distended, guarding, mass, organolmegaly, rebound, tenderness Neurological exam: PRESENT: alert, awake, oriented to person, oriented to place , oriented to time, oriented to situation, CN II-XII grossly intact. ABSENT: motor sensory deficit Results Impressions: Chest X-Ray 10/11/18 09:12 IMPRESSION: COPD. No acute findings. Assessment & Plan - Diagnosis (1) Acute and chronic respiratory failure Qualifiers: Qualified Code(s): J96.20 - Acute and chronic respiratory failure, unspecified whether with hypoxia or hypercapnia Is this a current diagnosis for this admission?: Yes Plan: 10/11/2018 the pulse ox is 451% at the time ambulance picked up the patient he was placed on BiPAP given nebulization treatments brought to the emergency room patient condition was much improved in the emergency room I am planning to continue the BiPAP for the time being and he is going to be placed on IV Solu- Medrol 125 mg every 6 hours, DuoNeb nebulizations every 4 as needed. I am going to start him on empiric antibiotic therapy IV Rocephin 1 g daily. And I am going to use long-acting beta agonist. And antimuscarinic agents. Going to request for incentive spirometry. The latest pulse ox on BiPAP is 98%. ABG done in the ER on BiPAP he is pH is 7.3 PCO2 50 PO2 181 oxygen saturation 99% this is on FiO2 of 30%. (2) COPD exacerbation Is this a current diagnosis for this admission?: Yes Plan: 10/11/2018 patient developed acute on chronic respiratory failure secondary to COPD exacerbation and I will continue the treatment as mentioned above. (3) Coronary artery disease Is this a current diagnosis for this admission?: Yes Plan: 10/11/2018 patient has history of coronary artery disease status post OH. Cardiac point of view asymptomatic. Will continue his home medications. (4) HTN (hypertension) Qualifiers: Hypertension type: essential hypertension Qualified Code(s): I10 - Essential (primary) hypertension Is this a current diagnosis for this admission?: Yes Plan: 10/11/2018 patient is given the history of hypertension. Blood pressure in the emergency room is 105/80. (5) Bipolar 1 disorder Is this a current diagnosis for this admission?: Yes Plan: 10/11/2018 patient has history of bipolar disorder patient denies any anxiety depression at this time he is on Lexapro 10 mg daily, Depakote 500 mg p.o. twice daily, BuSpar 10 mg p.o. twice daily and Abilify 5 mg p.o. daily at home we will continue the current management. Home medication list shows patient is also on Zyprexa 5 mg p.o. every 12 hours, Cogentin 1 mg p.o. nightly he is on 6 psychiatric medications I am going to request for input from the psychiatrist. - Time Time Spent: 50 to 70 Minutes Medications reviewed and adjusted accordingly: Yes Anticipated discharge: Home
[2018-10-11] MEDS ORDERED: IPRATROPIUM BROMIDE 0.02% NEB 0.5 MG/2.5 ML AMPUL NEB PRN (12:46)
--- NOTE | 2018-10-11 13:21 | EKG REPORT ---
SEVERITY:- ABNORMAL ECG - SINUS TACHYCARDIA LATERAL INFARCT, AGE INDETERMINATE NONSPECIFIC T ABNORMALITIES, INFERIOR LEADS : Confirmed by: Enrike Sheridan MD 11-Oct-2018 13:20:47
[2018-10-11] MEDS ORDERED: (PENDING PHARMACY ID) (Dextroamphetamine/Amphetamine [Adderall 30 Mg Tablet] 30 MG) PO SCH (14:00)
[2018-10-11] MEDS: CEFTRIAXONE SODIUM 1,000 MG in DEXTROSE 5%-WATER 50 ML IV SCH (15:13)
[2018-10-11] MEDS: METHYLPREDNISOLONE INJ 125 MG/2 ML SDV IV SCH ×2 (15:14→20:39)
[2018-10-11] MEDS ORDERED: SODIUM POLYSTYRENE SULFONATE 15 GM/60 ML PO ONE (15:22)
[2018-10-11] MEDS: IPRATROPIUM/ALBUTEROL 0.5-2.5 MG/3 ML AMPUL NEB SCH ×2 (16:22→20:37)
[2018-10-11 16:34] LABS: CREATINE KINASE MB 1.64 ng/mL (<4.55); TROPONIN I 0.041 ng/mL
[2018-10-11] MEDS ORDERED: SODIUM POLYSTYRENE SULFONATE 15 GM/60 ML ONE (17:32)
[2018-10-11] MEDS: BUSPIRONE HCL 10 MG TABLET PO SCH (17:34)
--- NOTE | 2018-10-11 19:45 | EKG REPORT ---
SEVERITY:- ABNORMAL ECG - SINUS RHYTHM VENTRICULAR PREMATURE COMPLEX PROBABLE LVH WITH SECONDARY REPOL ABNRM LATERAL INFARCT, AGE INDETERMINATE : Confirmed by: Enrike Sheridan MD 11-Oct-2018 19:44:49
[2018-10-11] MEDS ORDERED: (PENDING PHARMACY ID) (Divalproex Sodium [Depakote] 500 MG) PO SCH (22:00)
[2018-10-11] MEDS: OXYCODONE-ACETAMINOPHEN 5-325 MG TABLET PO PRN (22:38)
[2018-10-11] MEDS: FAMOTIDINE 20 MG TABLET PO SCH (22:39)
[2018-10-11] MEDS: BENZTROPINE MESYLATE 1 MG TABLET PO SCH (22:39)
[2018-10-11] MEDS: DIVALPROEX SODIUM 250 MG TABLET.DR PO SCH (22:39)
[2018-10-12] MEDS: IPRATROPIUM/ALBUTEROL 0.5-2.5 MG/3 ML AMPUL NEB SCH ×6 (00:08→20:05)
[2018-10-12] MEDS: METHYLPREDNISOLONE INJ 125 MG/2 ML SDV IV SCH ×4 (03:18→21:24)
[2018-10-12 04:01] LABS: HEMATOCRIT 36.1 % (37.9-51.0); HEMOGLOBIN 12.5 g/dL (13.5-17.0); MEAN CORPUSCULAR HEMOGLOBIN 30.9 pg (27.0-33.4); MEAN CORPUSCULAR HGB CONC 34.5 g/dL (32.0-36.0); MEAN CORPUSCULAR VOLUME 90 fl (80-97); PLATELET COUNT 196 10^3/uL (150-450); RED BLOOD COUNT 4.03 10^6/uL (4.35-5.55); RED CELL DISTRIBUTION WIDTH 14.1 % (11.5-14.0); WHITE BLOOD COUNT 6.4 10^3/uL (4.0-10.5)
[2018-10-12 04:20] LABS: ABSOLUTE LYMPHOCYTES# (MANUAL) 0.4 10^3/uL (0.5-4.7); BASOPHILS % (MANUAL) 0 % (0-2); EOSINOPHILS % (MANUAL) 0 % (0-6); LYMPHOCYTES % (MANUAL) 6 % (13-45); MONOCYTES % (MANUAL) 0 % (3-13); PLATELET COMMENT ADEQUATE; RBC MORPHOLOGY COMMENT NORMO-CYTIC/CHROMIC; SEGMENTED NEUTROPHILS % (MAN) 94 % (42-78); TOTAL CELLS COUNTED 100
[2018-10-12 04:27] LABS: ALANINE AMINOTRANSFERASE 36 U/L (21-72); ALBUMIN 3.7 g/dL (3.5-5.0); ALKALINE PHOSPHATASE 51 U/L (38-126); ANION GAP 14 (5-19); ASPARTATE AMINO TRANSFERASE 57 U/L (17-59); BILIRUBIN,DIRECT 0.3 mg/dL (0.0-0.4); BILIRUBIN,TOTAL 0.4 mg/dL (0.2-1.3); BLOOD UREA NITROGEN 13 mg/dL (7-20); CALCIUM 9.3 mg/dL (8.4-10.2); CARBON DIOXIDE 25 mmol/L (22-30); CHLORIDE 100 mmol/L (98-107); GLUCOSE 179 mg/dL (75-110); SODIUM 138.9 mmol/L (137-145); TOTAL PROTEIN 5.8 g/dL (6.3-8.2)
[2018-10-12 04:46] LABS: POTASSIUM 3.7 mmol/L (3.6-5.0)
[2018-10-12 05:59] LABS: URINE AMPHETAMINES SCREEN NEGATIVE; URINE BARBITURATES SCREEN NEGATIVE; URINE BENZODIAZEPINES SCREEN NEGATIVE; URINE MARIJUANA (THC) SCREEN NEGATIVE; URINE METHADONE SCREEN NEGATIVE; URINE PHENCYCLIDINE SCREEN NEGATIVE
[2018-10-12 06:00] LABS: URINE COCAINE SCREEN NEGATIVE
[2018-10-12 06:21] LABS: ARTERIAL BLOOD BASE EXCESS 1.4 mmol/L; ARTERIAL BLOOD H2CO3 1.21 mmol/L (1.05-1.35); ARTERIAL BLOOD HCO3 25.8 mmol/L (20-24); ARTERIAL BLOOD O2 SATURATION 84.2 % (94-98); ARTERIAL BLOOD PCO2 40.2 mmHg (35-45); ARTERIAL BLOOD PH 7.43 (7.35-7.45); ARTERIAL BLOOD PO2 47.2 mmHg (80-100); ARTERIAL BLOOD TOTAL CO2 27.1 mmol/L (23-27)
[2018-10-12] MEDS: OXYCODONE-ACETAMINOPHEN 5-325 MG TABLET PO PRN ×3 (06:22→21:29)
[2018-10-12 06:25] LABS: ARTERIAL BLOOD FIO2 3 LPM
[2018-10-12] MEDS ORDERED: (PENDING PHARMACY ID) (Dextroamphetamine/Amphetamine [Adderall 30 Mg Tablet] 30 MG) PO SCH (08:00)
[2018-10-12] MEDS: DIVALPROEX SODIUM 250 MG TABLET.DR PO SCH ×2 (09:38→21:24)
[2018-10-12] MEDS: BUSPIRONE HCL 10 MG TABLET PO SCH ×2 (09:38→17:03)
[2018-10-12] MEDS: ASPIRIN 81 MG TABLET, ENT COATED PO SCH (09:38)
[2018-10-12] MEDS: ARIPIPRAZOLE 5 MG TABLET PO SCH (09:38)
[2018-10-12] MEDS: DOCUSATE SODIUM 100 MG/10 ML UDC PO SCH (09:38)
[2018-10-12] MEDS: FAMOTIDINE 20 MG TABLET PO SCH ×2 (09:39→21:24)
[2018-10-12] MEDS: ENOXAPARIN SODIUM INJ 40 MG/0.4 ML DISP.SYRIN SUBCUT SCH (09:39)
[2018-10-12] MEDS: METOPROLOL SUCCINATE 25 MG TAB.SR.24H PO SCH (09:39)
[2018-10-12] MEDS ORDERED: CEFTRIAXONE INJ 1000 MG VIAL IV SCH (10:00)
--- NOTE | 2018-10-12 11:22 | PDOC PROGRESS REPORT ---
Subjective Progress Note for:: 10/12/18 Subjective:: 10/11/2018 58-year-old male with history of COPD on home oxygen 3 L via nasal cannula uses nebulizers at home, history of coronary artery disease status post NC, bipolar disorder, osteoarthritis, hypertension, ex-smoker, came to the emergency room actually brought to the emergency room after complaining of severe shortness of breath as per the patient's symptoms are started symptoms started as a severe wheezing and shortness of breath. Around 3 AM this morning and the symptoms are not improved despite using nebulizers at home he called EMS EMS at the time of EMS arrival pulse ox was around 51% he was given nebulizer treatments was placed on BiPAP and was brought to the emergency room for further management by the time she came to the emergency room he was much more responsive more alert and was placed on BiPAP and started on IV Solu-Medrol and nebulizer treatments were continued. When he went to talk to the patient patient was able to communicate well and able to provide a detailed history. According to him he went to the bed as usual without any problems woke up this morning around 3 AM with severe shortness of breath and denies any fevers he has this chronic cough with occasional whitish sputum denies any fevers denies any chills denies any chest pains denies any nausea vomiting diarrhea constipation. Planning of runny nose recently clear nasal discharge. Denies any headaches dizziness or falls. He has any new rash rashes. 10/12/2018 and she is feeling much better. But on examination is still short of breath and struggling to complete the sentences. He is not compliant with the BiPAP machine. He is afebrile. Reason For Visit: ACUTE ON CHRONIC RESPIRATORY FAILURE Physical Exam Vital Signs: Temp Pulse Resp BP Pulse Ox 98.6 F 100 18 130/67 H 98 10/12/18 08:07 10/12/18 08:23 10/12/18 08:23 10/12/18 08:07 10/12/18 08:23 Intake & Output 10/11/18 10/12/18 10/13/18 06:59 06:59 06:59 Intake Total 1066 Output Total 300 Balance 766 Weight 64.8 kg General appearance: PRESENT: no acute distress Eye exam: PRESENT: PERRLA Neck exam: ABSENT: carotid bruit, JVD, lymphadenopathy, thyromegaly Respiratory exam: PRESENT: other - On examination bilateral entry was severely decreased but much better compared to yesterday. Still continued to have wheezing. Extensive wheezing. Still struggling to complete the full sentences. Cardiovascular exam: PRESENT: tachycardia GI/Abdominal exam: PRESENT: normal bowel sounds, soft. ABSENT: distended, guarding, mass, organolmegaly, rebound, tenderness Neurological exam: PRESENT: alert, awake, oriented to person, oriented to place , oriented to time, oriented to situation, CN II-XII grossly intact. ABSENT: motor sensory deficit Results Laboratory Results: 10/12/18 03:52 10/12/18 03:52 10/12/18 10/12/18 10/12/18 03:52 03:52 03:52 WBC 6.4 RBC 4.03 L Hgb 12.5 L Hct 36.1 L MCV 90 MCH 30.9 MCHC 34.5 RDW 14.1 H Plt Count 196 Seg Neutrophils % Not Reportable Lymphocytes % Not Reportable Monocytes % Not Reportable Eosinophils % Not Reportable Basophils % Not Reportable Absolute Neutrophils Not Reportable Absolute Lymphocytes Not Reportable Absolute Monocytes Not Reportable Absolute Eosinophils Not Reportable Absolute Basophils Not Reportable Carbonic Acid HCO3/H2CO3 Ratio ABG pH ABG pCO2 ABG pO2 ABG HCO3 ABG O2 Saturation ABG Base Excess FiO2 Sodium 138.9 Potassium 3.7 D Chloride 100 Carbon Dioxide 25 Anion Gap 14 BUN 13 Creatinine 0.77 Est GFR ( Amer) > 60 Est GFR (Non-Af Amer) > 60 Glucose 179 H Calcium 9.3 Magnesium 1.9 Total Bilirubin 0.4 AST 57 ALT 36 Alkaline Phosphatase 51 Total Protein 5.8 L Albumin 3.7 TSH 0.10 L 10/12/18 05:55 WBC RBC Hgb Hct MCV MCH MCHC RDW Plt Count Seg Neutrophils % Lymphocytes % Monocytes % Eosinophils % Basophils % Absolute Neutrophils Absolute Lymphocytes Absolute Monocytes Absolute Eosinophils Absolute Basophils Carbonic Acid 1.21 HCO3/H2CO3 Ratio 21:1 ABG pH 7.43 ABG pCO2 40.2 ABG pO2 47.2 L ABG HCO3 25.8 H ABG O2 Saturation 84.2 L ABG Base Excess 1.4 FiO2 3 LPM Sodium Potassium Chloride Carbon Dioxide Anion Gap BUN Creatinine Est GFR ( Amer) Est GFR (Non-Af Amer) Glucose Calcium Magnesium Total Bilirubin AST ALT Alkaline Phosphatase Total Protein Albumin TSH 10/11/18 10/11/18 10/11/18 15:23 15:23 21:13 Creatine Kinase 248 H 383 H CK-MB (CK-2) 1.64 Troponin I 0.041 NT-Pro-B Natriuret Pep 10/11/18 10/12/18 10/12/18 21:13 03:52 03:52 Creatine Kinase 454 H CK-MB (CK-2) 1.62 1.45 Troponin I NT-Pro-B Natriuret Pep 10/12/18 03:52 Creatine Kinase CK-MB (CK-2) Troponin I NT-Pro-B Natriuret Pep 1030 H Impressions: Chest X-Ray 10/11/18 09:12 IMPRESSION: COPD. No acute findings. Assessment & Plan - Diagnosis (1) Acute and chronic respiratory failure Qualifiers: Qualified Code(s): J96.20 - Acute and chronic respiratory failure, unspecified whether with hypoxia or hypercapnia Is this a current diagnosis for this admission?: Yes Plan: 10/11/2018 the pulse ox is 51% at the time ambulance picked up the patient he was placed on BiPAP given nebulization treatments brought to the emergency room patient condition was much improved in the emergency room I am planning to continue the BiPAP for the time being and he is going to be placed on IV Solu- Medrol 125 mg every 6 hours, DuoNeb nebulizations every 4 as needed. I am going to start him on empiric antibiotic therapy IV Rocephin 1 g daily. And I am going to use long-acting beta agonist. And antimuscarinic agents. Going to request for incentive spirometry. The latest pulse ox on BiPAP is 98%. ABG done in the ER on BiPAP he is pH is 7.3 PCO2 50 PO2 181 oxygen saturation 99% this is on FiO2 of 30%. 10/12/2018 patient was brought in with pulse ox of 51%. Urgency room he was placed on BiPAP, started on nebulizer treatment, given IV steroids. Moment he is on IV antibiotics, IV steroids, nebulizations, incentive spirometry. He is also on BiPAP. ABG today pH is 7.4 PCO2 40/PO2 47 bicarb is 25.8. I increased the patient to keep the bypass as much as he can. Continue the present management. Blood cultures are negative so far. She is also tachycardic. (2) COPD exacerbation Is this a current diagnosis for this admission?: Yes Plan: 10/11/2018 patient developed acute on chronic respiratory failure secondary to COPD exacerbation and I will continue the treatment as mentioned above. 10/12/2018 patient admitted with COPD exacerbation/acute on chronic respiratory failure. We will continue the current management. (3) Coronary artery disease Is this a current diagnosis for this admission?: Yes Plan: 10/11/2018 patient has history of coronary artery disease status post NC. Cardiac point of view asymptomatic. Will continue his home medications. 10/12/2018 patient denies any complaints of chest pain. He is on metoprolol and aspirin and will we will continue the present management. (4) HTN (hypertension) Qualifiers: Hypertension type: essential hypertension Qualified Code(s): I10 - Essential (primary) hypertension Is this a current diagnosis for this admission?: Yes Plan: 10/11/2018 patient is given the history of hypertension. Blood pressure in the emergency room is 105/80. 10/12/2018 at the time of presentation patient's blood pressures are low. Today it was 130/67. Pulse rate of 100. Only on metoprolol 25 mg p.o. daily. (5) Bipolar 1 disorder Is this a current diagnosis for this admission?: Yes Plan: 10/11/2018 patient has history of bipolar disorder patient denies any anxiety depression at this time he is on Lexapro 10 mg daily, Depakote 500 mg p.o. twice daily, BuSpar 10 mg p.o. twice daily and Abilify 5 mg p.o. daily at home we will continue the current management. Home medication list shows patient is also on Zyprexa 5 mg p.o. every 12 hours, Cogentin 1 mg p.o. nightly he is on 6 psychiatric medications I am going to request for input from the psychiatrist. 10/12/2018 and has history of bipolar disorder he is on multiple medications I requested for psychiatric evaluation to adjust the medication. We waiting for the psych evaluation. Present patient denies any anxiety depression. - Time Time Spent with patient: 15-24 minutes Medications reviewed and adjusted accordingly: Yes Anticipated discharge: Home
[2018-10-12 12:35] LABS: ARTERIAL BLOOD H2CO3 0.93 mmol/L (1.05-1.35); ARTERIAL BLOOD HCO3 23.4 mmol/L (20-24); ARTERIAL BLOOD PCO2 30.9 mmHg (35-45); ARTERIAL BLOOD PO2 97.4 mmHg (80-100); ARTERIAL BLOOD TOTAL CO2 24.4 mmol/L (23-27)
[2018-10-12 12:36] LABS: ARTERIAL BLOOD FIO2 3L
[2018-10-12] MEDS: CEFTRIAXONE SODIUM 1,000 MG in DEXTROSE 5%-WATER 50 ML IV SCH (13:18)
[2018-10-12] MEDS: BENZTROPINE MESYLATE 1 MG TABLET PO SCH (21:24)
[2018-10-13] MEDS: IPRATROPIUM/ALBUTEROL 0.5-2.5 MG/3 ML AMPUL NEB SCH ×7 (00:10→23:52)
[2018-10-13] MEDS: METHYLPREDNISOLONE INJ 125 MG/2 ML SDV IV SCH ×4 (04:38→21:05)
[2018-10-13] MEDS: OXYCODONE-ACETAMINOPHEN 5-325 MG TABLET PO PRN ×3 (07:38→21:48)
[2018-10-13] MEDS: ENOXAPARIN SODIUM INJ 40 MG/0.4 ML DISP.SYRIN SUBCUT SCH (10:51)
[2018-10-13] MEDS: ASPIRIN 81 MG TABLET, ENT COATED PO SCH (10:52)
[2018-10-13] MEDS: DIVALPROEX SODIUM 250 MG TABLET.DR PO SCH ×2 (10:52→21:05)
[2018-10-13] MEDS: ARIPIPRAZOLE 5 MG TABLET PO SCH (10:52)
[2018-10-13] MEDS: METOPROLOL SUCCINATE 25 MG TAB.SR.24H PO SCH (10:52)
[2018-10-13] MEDS: FAMOTIDINE 20 MG TABLET PO SCH ×2 (10:52→21:05)
[2018-10-13] MEDS: DOCUSATE SODIUM 100 MG/10 ML UDC PO SCH (10:53)
[2018-10-13] MEDS: BUSPIRONE HCL 10 MG TABLET PO SCH ×2 (10:53→17:13)
--- NOTE | 2018-10-13 11:39 | PDOC PROGRESS REPORT ---
Subjective Progress Note for:: 10/13/18 Subjective:: 10/11/2018 58-year-old male with history of COPD on home oxygen 3 L via nasal cannula uses nebulizers at home, history of coronary artery disease status post [place], bipolar disorder, osteoarthritis, hypertension, ex-smoker, came to the emergency room actually brought to the emergency room after complaining of severe shortness of breath as per the patient's symptoms are started symptoms started as a severe wheezing and shortness of breath. Around 3 AM this morning and the symptoms are not improved despite using nebulizers at home he called EMS EMS at the time of EMS arrival pulse ox was around 51% he was given nebulizer treatments was placed on BiPAP and was brought to the emergency room for further management by the time she came to the emergency room he was much more responsive more alert and was placed on BiPAP and started on IV Solu-Medrol and nebulizer treatments were continued. When he went to talk to the patient patient was able to communicate well and able to provide a detailed history. According to him he went to the bed as usual without any problems woke up this morning around 3 AM with severe shortness of breath and denies any fevers he has this chronic cough with occasional whitish sputum denies any fevers denies any chills denies any chest pains denies any nausea vomiting diarrhea constipation. Planning of runny nose recently clear nasal discharge. Denies any headaches dizziness or falls. He has any new rash rashes. 10/12/2018 and she is feeling much better. But on examination is still short of breath and struggling to complete the sentences. He is not compliant with the BiPAP machine. He is afebrile. 10/13/2018 no acute events in the last 24 hours. He is afebrile. Is complaining of still wheezing. Also complains of shortness of breath. Reason For Visit: ACUTE ON CHRONIC RESPIRATORY FAILURE Physical Exam Vital Signs: Temp Pulse Resp BP Pulse Ox 98.2 F 92 20 133/87 H 94 10/13/18 08:00 10/13/18 08:43 10/13/18 08:43 10/13/18 08:00 10/13/18 08:43 Intake & Output 10/12/18 10/13/18 10/14/18 06:59 06:59 06:59 Intake Total 1066 1467 Output Total 300 2085 Balance 766 -618 Weight 64.8 kg 69.4 kg General appearance: PRESENT: no acute distress Head exam: PRESENT: atraumatic Neck exam: ABSENT: carotid bruit, JVD, lymphadenopathy, thyromegaly Respiratory exam: PRESENT: wheezes GI/Abdominal exam: PRESENT: normal bowel sounds, soft. ABSENT: distended, guarding, mass, organolmegaly, rebound, tenderness Neurological exam: PRESENT: alert, awake, oriented to person, oriented to place , oriented to time, oriented to situation, CN II-XII grossly intact. ABSENT: motor sensory deficit Psychiatric exam: PRESENT: appropriate affect, normal mood. ABSENT: homicidal ideation, suicidal ideation Results Laboratory Results: 10/12/18 03:52 10/12/18 03:52 10/12/18 10/13/18 12:18 05:24 Carbonic Acid 0.93 L HCO3/H2CO3 Ratio 25:1 ABG pH 7.50 H ABG pCO2 30.9 L ABG pO2 97.4 ABG HCO3 23.4 ABG O2 Saturation 98.0 ABG Base Excess 1.0 FiO2 3L Magnesium 1.9 10/11/18 10/11/18 10/11/18 15:23 15:23 21:13 Creatine Kinase 248 H 383 H CK-MB (CK-2) 1.64 Troponin I 0.041 NT-Pro-B Natriuret Pep 10/11/18 10/12/18 10/12/18 21:13 03:52 03:52 Creatine Kinase 454 H CK-MB (CK-2) 1.62 1.45 Troponin I NT-Pro-B Natriuret Pep 10/12/18 03:52 Creatine Kinase CK-MB (CK-2) Troponin I NT-Pro-B Natriuret Pep 1030 H Impressions: Chest X-Ray 10/11/18 09:12 IMPRESSION: COPD. No acute findings. Assessment & Plan - Diagnosis (1) Acute and chronic respiratory failure Qualifiers: Qualified Code(s): J96.20 - Acute and chronic respiratory failure, unspecified whether with hypoxia or hypercapnia Is this a current diagnosis for this admission?: Yes Plan: 10/11/2018 the pulse ox is 51% at the time ambulance picked up the patient he was placed on BiPAP given nebulization treatments brought to the emergency room patient condition was much improved in the emergency room I am planning to continue the BiPAP for the time being and he is going to be placed on IV Solu- Medrol 125 mg every 6 hours, DuoNeb nebulizations every 4 as needed. I am going to start him on empiric antibiotic therapy IV Rocephin 1 g daily. And I am going to use long-acting beta agonist. And antimuscarinic agents. Going to request for incentive spirometry. The latest pulse ox on BiPAP is 98%. ABG done in the ER on BiPAP he is pH is 7.3 PCO2 50 PO2 181 oxygen saturation 99% this is on FiO2 of 30%. 10/12/2018 patient was brought in with pulse ox of 51%. Urgency room he was placed on BiPAP, started on nebulizer treatment, given IV steroids. Moment he is on IV antibiotics, IV steroids, nebulizations, incentive spirometry. He is also on BiPAP. ABG today pH is 7.4 PCO2 40/PO2 47 bicarb is 25.8. I increased the patient to keep the bypass as much as he can. Continue the present management. Blood cultures are negative so far. She is also tachycardic. 10/13/2018. Admitted with severe hypoxia. Initial pulse ox is 51%. He was placed on BiPAP, IV antibiotics, IV steroids, nebulizations, incentive spirometry. Doing much better now. Her socks today is 94% on 2 L. Decreased his IV Solu-Medrol from 125 mg IV every 6 hours to every 12 hours. The blood cultures coming back negative. (2) COPD exacerbation Is this a current diagnosis for this admission?: Yes Plan: 10/11/2018 patient developed acute on chronic respiratory failure secondary to COPD exacerbation and I will continue the treatment as mentioned above. 10/12/2018 patient admitted with COPD exacerbation/acute on chronic respiratory failure. We will continue the current management. 10/13/2018 and has history of COPD. Admitted for acute on chronic respiratory failure. He is getting better. We will continue the present management. (3) Coronary artery disease Is this a current diagnosis for this admission?: Yes Plan: 10/11/2018 patient has history of coronary artery disease status post [place]. Cardiac point of view asymptomatic. Will continue his home medications. 10/12/2018 patient denies any complaints of chest pain. He is on metoprolol and aspirin and will we will continue the present management. 10/13/2018 history of coronary artery disease. He is on metoprolol. He is also on aspirin. No complaints of chest pain today. (4) HTN (hypertension) Qualifiers: Hypertension type: essential hypertension Qualified Code(s): I10 - Essential (primary) hypertension Is this a current diagnosis for this admission?: Yes Plan: 10/11/2018 patient is given the history of hypertension. Blood pressure in the emergency room is 105/80. 10/12/2018 at the time of presentation patient's blood pressures are low. Today it was 130/67. Pulse rate of 100. Only on metoprolol 25 mg p.o. daily. 10/13/2018 patient's blood pressure today is 133/87. He is on metoprolol 25 mg p.o. daily. We will continue the present management. (5) Bipolar 1 disorder Is this a current diagnosis for this admission?: Yes Plan: 10/11/2018 patient has history of bipolar disorder patient denies any anxiety depression at this time he is on Lexapro 10 mg daily, Depakote 500 mg p.o. twice daily, BuSpar 10 mg p.o. twice daily and Abilify 5 mg p.o. daily at home we will continue the current management. Home medication list shows patient is also on Zyprexa 5 mg p.o. every 12 hours, Cogentin 1 mg p.o. nightly he is on 6 psychiatric medications I am going to request for input from the psychiatrist. 10/12/2018 and has history of bipolar disorder he is on multiple medications I requested for psychiatric evaluation to adjust the medication. We waiting for the psych evaluation. Present patient denies any anxiety depression. 10/13/2018 patient has history of bipolar disorder. Continuing most of his home medications. - Time Time Spent with patient: 15-24 minutes Medications reviewed and adjusted accordingly: Yes Anticipated discharge: Home
[2018-10-13] MEDS: CEFTRIAXONE SODIUM 1,000 MG in DEXTROSE 5%-WATER 50 ML IV SCH (13:22)
--- NOTE | 2018-10-13 14:44 | PSYCHOLOGICAL NOTE ---
Psych Note - Psych Note Date seen by psych provider: 10/12/18 Psych Note: Reason for Consult: medication recommendations Patient is a 58-year-old male with COPD that presents to the emergency department for chief complaint of respiratory distress. Chart review conducted Patient is currently a medical patient and is not demonstrating any issues with his mental health symptoms. Patient was seen by the behavioral health team on 03/10/2018 for homicidal comments. during that visit, the patient reported he does use drugs. He disclosed that he use to drink about a gallon of whiskey a day but states that he stopped drinking a couple months previous. HE reproted he just smokes weed now. It is also noted the patient stated he is homeless but that is by choice. Medication recommendations per [facility]'s contracted psychiatrist Dr. Jimy COLLADO are as follows please discontinue home medications of Adderall, Lexapro and Abilify Please continue all other home psychiatric medications 296.7 (F31.9) bipolar 1 disorder; most recent episode unspecified 292.9 (F 19.99) unspecified other (or unknown) substance related disorder Impression\plan: Patient is cleared from acute psychiatric services. Medication recommendations were requested because of the high left number of antipsychotics and other psychiatric medications the patient was on. Medication recommendations have been provided. If any new concerns arise please reconsult. Dr. Choe was consulted and the care and management of this patient; attending physicians in agreement with recommendations and disposition.
[2018-10-13] MEDS: BENZTROPINE MESYLATE 1 MG TABLET PO SCH (21:05)
[2018-10-14] MEDS: IPRATROPIUM/ALBUTEROL 0.5-2.5 MG/3 ML AMPUL NEB SCH ×3 (04:10→12:14)
[2018-10-14] MEDS: METHYLPREDNISOLONE INJ 125 MG/2 ML SDV IV SCH (05:35)
[2018-10-14] MEDS: OXYCODONE-ACETAMINOPHEN 5-325 MG TABLET PO PRN ×2 (05:40→13:34)
[2018-10-14 06:27] LABS: HEMATOCRIT 34.7 % (37.9-51.0); HEMOGLOBIN 12.1 g/dL (13.5-17.0); MEAN CORPUSCULAR HGB CONC 34.8 g/dL (32.0-36.0); MEAN CORPUSCULAR VOLUME 89 fl (80-97); PLATELET COUNT 170 10^3/uL (150-450); RED CELL DISTRIBUTION WIDTH 13.8 % (11.5-14.0); WHITE BLOOD COUNT 8.3 10^3/uL (4.0-10.5)
[2018-10-14 06:49] LABS: ALANINE AMINOTRANSFERASE 24 U/L (21-72); ALBUMIN 3.2 g/dL (3.5-5.0); ALKALINE PHOSPHATASE 38 U/L (38-126); ANION GAP 12 (5-19); ASPARTATE AMINO TRANSFERASE 18 U/L (17-59); BILIRUBIN,DIRECT 0.2 mg/dL (0.0-0.4); BILIRUBIN,TOTAL 0.3 mg/dL (0.2-1.3); BLOOD UREA NITROGEN 19 mg/dL (7-20); CALCIUM 9.1 mg/dL (8.4-10.2); CARBON DIOXIDE 27 mmol/L (22-30); CHLORIDE 97 mmol/L (98-107); GLUCOSE 135 mg/dL (75-110); SODIUM 136.2 mmol/L (137-145); TOTAL PROTEIN 5.3 g/dL (6.3-8.2)
[2018-10-14 07:26] LABS: ABSOLUTE LYMPHOCYTES# (MANUAL) 0.3 10^3/uL (0.5-4.7); ABSOLUTE MONOCYTES # (MANUAL) 0.2 10^3/uL (0.1-1.4); ABSOLUTE NEUTROPHILS# (MANUAL) 7.8 10^3/uL (1.7-8.2); BASOPHILS % (MANUAL) 0 % (0-2); EOSINOPHILS % (MANUAL) 0 % (0-6); LYMPHOCYTES % (MANUAL) 4 % (13-45); MONOCYTES % (MANUAL) 2 % (3-13); SEGMENTED NEUTROPHILS % (MAN) 94 % (42-78); TOTAL CELLS COUNTED 100
[2018-10-14 07:27] LABS: OVALOCYTES 1+; PLATELET COMMENT ADEQUATE; POIKILOCYTOSIS 1+; TEAR DROP CELLS SLIGHT
[2018-10-14] MEDS ORDERED: LURASIDONE HCL 40 MG TABLET PO SCH (10:00)
[2018-10-14] MEDS: DIVALPROEX SODIUM 250 MG TABLET.DR PO SCH (11:31)
[2018-10-14] MEDS: METOPROLOL SUCCINATE 25 MG TAB.SR.24H PO SCH (11:32)
[2018-10-14] MEDS: BUSPIRONE HCL 10 MG TABLET PO SCH (11:32)
[2018-10-14] MEDS: ASPIRIN 81 MG TABLET, ENT COATED PO SCH (11:32)
[2018-10-14] MEDS: FAMOTIDINE 20 MG TABLET PO SCH (11:32)
[2018-10-14] MEDS: ENOXAPARIN SODIUM INJ 40 MG/0.4 ML DISP.SYRIN SUBCUT SCH (11:32)
[2018-10-14 12:25] VITALS: BP 153/76
--- NOTE | 2018-10-14 14:25 | PDOC DISCHARGE SUMMARY ---
General - Admit/Disc Date/PCP Admission Date/Primary Care Provider: 10/11/18 11:29 KATHIA MORALES MD Discharge Date: 10/14/18 - Discharge Diagnosis (1) Acute and chronic respiratory failure Is this a current diagnosis for this admission?: Yes Summary: 10/11/2018 the pulse ox is 51% at the time ambulance picked up the patient he was placed on BiPAP given nebulization treatments brought to the emergency room patient condition was much improved in the emergency room I am planning to continue the BiPAP for the time being and he is going to be placed on IV Solu- Medrol 125 mg every 6 hours, DuoNeb nebulizations every 4 as needed. I am going to start him on empiric antibiotic therapy IV Rocephin 1 g daily. And I am going to use long-acting beta agonist. And antimuscarinic agents. Going to request for incentive spirometry. The latest pulse ox on BiPAP is 98%. ABG done in the ER on BiPAP he is pH is 7.3 PCO2 50 PO2 181 oxygen saturation 99% this is on FiO2 of 30%. 10/12/2018 patient was brought in with pulse ox of 51%. Urgency room he was placed on BiPAP, started on nebulizer treatment, given IV steroids. Moment he is on IV antibiotics, IV steroids, nebulizations, incentive spirometry. He is also on BiPAP. ABG today pH is 7.4 PCO2 40/PO2 47 bicarb is 25.8. I increased the patient to keep the bypass as much as he can. Continue the present management. Blood cultures are negative so far. She is also tachycardic. 10/13/2018. Admitted with severe hypoxia. Initial pulse ox is 51%. He was placed on BiPAP, IV antibiotics, IV steroids, nebulizations, incentive spirometry. Doing much better now. Her socks today is 94% on 2 L. Decreased his IV Solu-Medrol from 125 mg IV every 6 hours to every 12 hours. The blood cultures coming back negative. 10/14/2018 this patient with COPD when he came to the ER pulse ox is 51%, he got nebulizer treatments was placed on BiPAP in the ER. And medical consult was requested I went to evaluate the patient he was started on IV antibiotics, IV steroids, DuoNeb nebulizations every 4 as needed, incentive spirometry. Chest x -ray was negative for pneumonia at the time of admission. Blood cultures came back negative. He improved with the above treatment. Today on examination chest bilateral entry was good with the decreased bilateral air entry. Patient is not in shortness of breath. He is expressing desire to go home. Advised him to quit smoking and compliant with medications. He said he has oxygen at home we are going to arrange for a portable device. He is also requested for nicotine patch. Prescription was given. He was given a steroid P prednisone 10 mg p.o. twice daily for 1 week. (2) COPD exacerbation Is this a current diagnosis for this admission?: Yes Summary: 10/11/2018 patient developed acute on chronic respiratory failure secondary to COPD exacerbation and I will continue the treatment as mentioned above. 10/12/2018 patient admitted with COPD exacerbation/acute on chronic respiratory failure. We will continue the current management. 10/13/2018 and has history of COPD. Admitted for acute on chronic respiratory failure. He is getting better. We will continue the present management. 10/14/2018 patient with history of COPD on home oxygen admitted with acute on chronic respiratory failure he is in severe hypoxia at the time of admission during the hospital stay no acute events happen he shows improvement on daily basis. We will plan to discharge him home today. He was given a prescription for a portable device, nicotine patch, p.o. prednisone. Patient was advised to quit smoking and smoking counseling was provided. Pulse ox today is 94% on 2 L. (3) Coronary artery disease Is this a current diagnosis for this admission?: Yes Summary: 10/11/2018 patient has history of coronary artery disease status post [place]. Cardiac point of view asymptomatic. Will continue his home medications. 10/12/2018 patient denies any complaints of chest pain. He is on metoprolol and aspirin and will we will continue the present management. 10/13/2018 history of coronary artery disease. He is on metoprolol. He is also on aspirin. No complaints of chest pain today. 10/14/2018 patient has history of coronary artery disease. No complaints of chest pain during the hospital stay. He was on aspirin and metoprolol during the hospital today. Advised him to continue those medications as an outpatient. (4) HTN (hypertension) Is this a current diagnosis for this admission?: Yes Summary: 10/11/2018 patient is given the history of hypertension. Blood pressure in the emergency room is 105/80. 10/12/2018 at the time of presentation patient's blood pressures are low. Today it was 130/67. Pulse rate of 100. Only on metoprolol 25 mg p.o. daily. 10/13/2018 patient's blood pressure today is 133/87. He is on metoprolol 25 mg p.o. daily. We will continue the present management. 10/14/2018 blood pressure today is 162/82. He is on metoprolol 25 mg p.o. daily. During the hospital stay blood pressures are relatively controlled. (5) Bipolar 1 disorder Is this a current diagnosis for this admission?: Yes - Additional Information Resuscitation Status: Full Code Discharge Diet: As Tolerated, Cardiac Discharge Activity: Activity As Tolerated, Balance Activity w/Rest Prescriptions: Lurasidone HCl [Latuda 40 mg Tablet] 20 mg PO DAILY #30 tablet Nicotine [Nicoderm 21 mg/24 Hr Transderm Patch] 1 patch TD DAILY #30 patch.td24 Nutritional Supplement [Ensure] 113 gm PO DAILY #30 pudding Olanzapine [Zyprexa 5 mg Tablet] 5 mg PO Q12 #30 tablet Prednisone 10 mg PO BID #14 tab.ds.pk Home Medications: Albuterol Sulfate [Proair HFA Inhalation Aerosol 8.5 gm MDI] 2 puff IH Q6HP PRN 10/11/18 Aspirin [Ecotrin 81 mg EC Tablet] 81 mg PO DAILY 10/11/18 Benztropine Mesylate [Cogentin 1 mg Tablet] 1 mg PO DAILY 10/11/18 Buspirone HCl [Buspar 10 mg Tablet] 10 mg PO Q12 10/11/18 Divalproex Sodium [Depakote] 500 mg PO Q12 10/11/18 Lurasidone HCl [Latuda] 20 mg PO QHS 10/11/18 Metoprolol Succinate [Toprol Xl 25 mg Tab.sr] 25 mg PO DAILY 10/11/18 Olanzapine [Zyprexa] 5 mg PO Q12 10/11/18 Aspirin [Ecotrin 81 mg EC Tablet] 81 mg PO DAILY tabec 10/14/18 Benztropine Mesylate [Cogentin 1 mg Tablet] 1 mg PO QHS tablet 10/14/18 Buspirone HCl [Buspar 10 mg Tablet] 10 mg PO BID tablet 10/14/18 Lurasidone HCl [Latuda 40 mg Tablet] 20 mg PO DAILY #30 tablet 10/14/18 Metoprolol Succinate [Toprol Xl 25 mg Tab.sr] 25 mg PO DAILY tab.sr.24h Nicotine [Nicoderm 21 mg/24 Hr Transderm Patch] 1 patch TD DAILY #30 patch.td24 10/14/18 Nutritional Supplement [Ensure] 113 gm PO DAILY #30 pudding 10/14/18 Olanzapine [Zyprexa 5 mg Tablet] 5 mg PO Q12 #30 tablet 10/14/18 Prednisone 10 mg PO BID #14 tab.ds.pk 10/14/18 History of Present Illness History of Present Illness: GALI CHURCH JR is a 58 year old male 58-year-old male with history of COPD on home oxygen 3 L via nasal cannula uses nebulizers at home, history of coronary artery disease status post [place], bipolar disorder, osteoarthritis, hypertension, ex-smoker, came to the emergency room actually brought to the emergency room after complaining of severe shortness of breath as per the patient's symptoms are started symptoms started as a severe wheezing and shortness of breath. Around 3 AM this morning and the symptoms are not improved despite using nebulizers at home he called EMS EMS at the time of EMS arrival pulse ox was around 51% he was given nebulizer treatments was placed on BiPAP and was brought to the emergency room for further management by the time she came to the emergency room he was much more responsive more alert and was placed on BiPAP and started on IV Solu-Medrol and nebulizer treatments were continued. When he went to talk to the patient patient was able to communicate well and able to provide a detailed history. According to him he went to the bed as usual without any problems woke up this morning around 3 AM with severe shortness of breath and denies any fevers he has this chronic cough with occasional whitish sputum denies any fevers denies any chills denies any chest pains denies any nausea vomiting diarrhea constipation. Planning of runny nose recently clear nasal discharge. Denies any headaches dizziness or falls. He has any new rash rashes. Physical Exam Vital Signs: Temp Pulse Resp BP Pulse Ox 98.0 F 81 16 153/76 H 94 10/14/18 13:00 10/14/18 13:00 10/14/18 13:00 10/14/18 13:00 10/14/18 13:00 Intake & Output 10/13/18 10/14/18 10/15/18 06:59 06:59 06:59 Intake Total 1469 5405 649 Output Total 3816 350 Balance -618 2896 649 Weight 69.4 kg 71 kg General appearance: PRESENT: no acute distress Head exam: PRESENT: atraumatic Eye exam: PRESENT: PERRLA Mouth exam: PRESENT: moist Throat exam: ABSENT: post pharyngeal erythema Neck exam: ABSENT: carotid bruit, JVD, lymphadenopathy, thyromegaly Respiratory exam: PRESENT: decreased breath sounds. ABSENT: rhonchi, wheezes Cardiovascular exam: PRESENT: RRR. ABSENT: diastolic murmur, rubs, systolic murmur GI/Abdominal exam: PRESENT: normal bowel sounds, soft. ABSENT: distended, guarding, mass, organolmegaly, rebound, tenderness Neurological exam: PRESENT: alert, awake, oriented to person, oriented to place , oriented to time, oriented to situation, CN II-XII grossly intact. ABSENT: motor sensory deficit Psychiatric exam: PRESENT: appropriate affect, normal mood. ABSENT: homicidal ideation, suicidal ideation Results Laboratory Results: 10/14/18 05:35 10/14/18 05:35 10/14/18 10/14/18 05:35 05:35 WBC 8.3 RBC 3.90 L Hgb 12.1 L Hct 34.7 L MCV 89 MCH 31.0 MCHC 34.8 RDW 13.8 Plt Count 170 Seg Neutrophils % Not Reportable Lymphocytes % Not Reportable Monocytes % Not Reportable Eosinophils % Not Reportable Basophils % Not Reportable Absolute Neutrophils Not Reportable Absolute Lymphocytes Not Reportable Absolute Monocytes Not Reportable Absolute Eosinophils Not Reportable Absolute Basophils Not Reportable Sodium 136.2 L Potassium 4.0 Chloride 97 L Carbon Dioxide 27 Anion Gap 12 BUN 19 Creatinine 0.86 Est GFR ( Amer) > 60 Est GFR (Non-Af Amer) > 60 Glucose 135 H Calcium 9.1 Magnesium 1.9 Total Bilirubin 0.3 AST 18 ALT 24 Alkaline Phosphatase 38 Total Protein 5.3 L Albumin 3.2 L 10/11/18 10/11/18 10/11/18 15:23 15:23 21:13 Creatine Kinase 248 H 383 H CK-MB (CK-2) 1.64 Troponin I 0.041 NT-Pro-B Natriuret Pep 10/11/18 10/12/18 10/12/18 21:13 03:52 03:52 Creatine Kinase 454 H CK-MB (CK-2) 1.62 1.45 Troponin I NT-Pro-B Natriuret Pep 10/12/18 03:52 Creatine Kinase CK-MB (CK-2) Troponin I NT-Pro-B Natriuret Pep 1030 H Impressions: Chest X-Ray 10/11/18 09:12 IMPRESSION: COPD. No acute findings. Qualifiers - * PATIENT BEING DISCHARGED WITH ANY OF THE FOLLOWING DIAGNOSIS: No VTE patient discharged on overlapping Therapy?: Yes
[2018-10-15] MEDS ORDERED: DOCUSATE SODIUM 100 MG CAPSULE PO SCH (10:00)
[2018-10-15] MEDS ORDERED: OLANZAPINE 5 MG TABLET PO SCH (10:00)
== END 2018-10-14 15:35 | disposition home or self-care (01) | DRG 189 ==
LOC: ER 09:02 → EH 11:29 → 3W 14:11
PROVIDERS: ADMIT Emergency Medicine; ATTEND Emergency Medicine
PROC: 3E0234Z Introduction of Serum, Toxoid and Vaccine into Muscle, Percutaneous Approach (ICD-10-PCS; principal; 2018-10-14)
DX: J96.21 Acute and chronic respiratory failure with hypoxia (principal); J44.1 Chronic obstructive pulmonary disease with (acute) exacerbation; E78.5 Hyperlipidemia, unspecified; I50.9 Heart failure, unspecified; I11.0 Hypertensive heart disease with heart failure; I25.10 Atherosclerotic heart disease of native coronary artery without angina pectoris; F90.9 Attention-deficit hyperactivity disorder, unspecified type; F31.9 Bipolar disorder, unspecified; F25.9 Schizoaffective disorder, unspecified; F17.210 Nicotine dependence, cigarettes, uncomplicated; I25.2 Old myocardial infarction; Z99.81 Dependence on supplemental oxygen; Z79.82 Long term (current) use of aspirin; Z79.51 Long term (current) use of inhaled steroids; Z79.52 Long term (current) use of systemic steroids; Z79.899 Other long term (current) drug therapy; Z23 Encounter for immunization; Z59.0 Homelessness
CPT/HCPCS: 36415; 36600; 71045; 80053; 80307; 82550; 82553; 82803; 83735; 83880; 84443; 84484; 85025; 87040; 90686; 93005; 93010; 94640; 94660; 94799; 96365; 99291; J0696; J1650; J2930; J3475; J3490; J7620

== ENCOUNTER 2018-12-19 17:15 | Emergency (ER) | payer MEDICAID ==
--- NOTE | 2018-12-20 12:41 | EKG REPORT ---
SEVERITY:- ABNORMAL ECG - SINUS RHYTHM SUPRAVENTRICULAR BIGEMINY LVH WITH SECONDARY REPOLARIZATION ABNORMALITY : Confirmed by: Ivan Oseguera 20-Dec-2018 12:40:25
== END 2018-12-19 18:00 | disposition left against medical advice (07) ==
LOC: ER 17:15
DX: Z53.21 Procedure and treatment not carried out due to patient leaving prior to being seen by health care provider (principal)
CPT/HCPCS: 93005; 93010

== ENCOUNTER 2018-12-28 06:55 | Emergency (ER) | payer MEDICAID ==
[2018-12-28] MEDS ORDERED: IPRATROPIUM/ALBUTEROL 0.5-2.5 MG/3 ML AMPUL NEB ONE (07:12)
[2018-12-28] MEDS ORDERED: MAGNESIUM SULFATE/D5W 1 GM/100 ML RTUPB IV ONE (07:13)
[2018-12-28 07:35] LABS: ABSOLUTE LYMPHOCYTES (AUTO) 1.4 10^3/uL (0.5-4.7); ABSOLUTE MONOCYTES (AUTO) 0.5 10^3/uL (0.1-1.4); BASOPHILS % (AUTO) 0.1 % (0-2); EOSINOPHILS % (AUTO) 17.1 % (0-6); HEMATOCRIT 42.1 % (37.9-51.0); HEMOGLOBIN 14.6 g/dL (13.5-17.0); LYMPHOCYTES % (AUTO) 22.9 % (13-45); MEAN CORPUSCULAR HGB CONC 34.6 g/dL (32.0-36.0); MEAN CORPUSCULAR VOLUME 90 fl (80-97); MONOCYTES % (AUTO) 9.1 % (3-13); PLATELET COUNT 201 10^3/uL (150-450); RED CELL DISTRIBUTION WIDTH 14.7 % (11.5-14.0); SEGMENTED NEUTROPHILS % (AUTO) 50.8 % (42-78); TOTAL CELLS COUNTED % (AUTO) 100 %; WHITE BLOOD COUNT 5.9 10^3/uL (4.0-10.5)
[2018-12-28 07:42] LABS: INTERNATIONAL RATION (INR) 0.89; PROTHROMBIN TIME 12.5 SEC (11.4-15.4)
[2018-12-28 07:49] LABS: VENOUS BLOOD BASE EXCESS 0.3 mmol/L; VENOUS BLOOD HCO3 26.2 mmol/L (20-32); VENOUS BLOOD PCO2 46.4 mmHg (35-63); VENOUS BLOOD PH 7.37 (7.30-7.42)
[2018-12-28 07:51] LABS: ALANINE AMINOTRANSFERASE 33 U/L (21-72); ALBUMIN 4.4 g/dL (3.5-5.0); ALKALINE PHOSPHATASE 62 U/L (38-126); ANION GAP 10 (5-19); ASPARTATE AMINO TRANSFERASE 27 U/L (17-59); BILIRUBIN,DIRECT 0.1 mg/dL (0.0-0.4); BILIRUBIN,TOTAL 0.7 mg/dL (0.2-1.3); BLOOD UREA NITROGEN 6 mg/dL (7-20); CALCIUM 9.5 mg/dL (8.4-10.2); CARBON DIOXIDE 28 mmol/L (22-30); CHLORIDE 100 mmol/L (98-107); CREATINE KINASE 529 U/L (55-170); GLUCOSE 96 mg/dL (75-110); LIPASE 146.3 U/L (23-300); POTASSIUM 4.2 mmol/L (3.6-5.0); SODIUM 137.9 mmol/L (137-145); TOTAL PROTEIN 6.4 g/dL (6.3-8.2)
[2018-12-28 08:03] LABS: CREATINE KINASE MB 0.98 ng/mL (<4.55); NT PRO BNP 426 pg/mL (5-900)
--- NOTE | 2018-12-28 08:05 | RADIOLOGY REPORT (SQ) ---
EXAM DESCRIPTION: CHEST SINGLE VIEW COMPLETED DATE/TIME: 12/28/2018 7:47 am REASON FOR STUDY: sob COMPARISON: Chest films 10/11/2018, 09/26/2018, 02/28/2018 CT chest 02/22/2018 EXAM PARAMETERS: NUMBER OF VIEWS: One view. TECHNIQUE: Single frontal radiographic view of the chest acquired. RADIATION DOSE: NA LIMITATIONS: None. FINDINGS: LUNGS AND PLEURA: Chronic blunting left lateral costophrenic sulcus. Lungs are hyperinflated but clear. No acute infiltrate, pleural effusion, or pneumothorax. MEDIASTINUM AND HILAR STRUCTURES: No masses. Contour normal. HEART AND VASCULAR STRUCTURES: Heart normal in size. Normal vasculature. BONES: No acute findings. HARDWARE: None in the chest. OTHER: No other significant finding. IMPRESSION: No acute findings TECHNICAL DOCUMENTATION: JOB ID: [id number] [employer]- All Rights Reserved Reading location - IP/workstation name: [email or web address]
[2018-12-28 08:08] LABS: TROPONIN I < 0.012 ng/mL
--- NOTE | 2018-12-28 08:41 | EKG REPORT ---
SEVERITY:- ABNORMAL ECG - SINUS RHYTHM RIGHT ATRIAL ABNORMALITY BORDERLINE R WAVE PROGRESSION, ANTERIOR LEADS NONSPECIFIC REPOL ABNORMALITY, LATERAL LEADS : Confirmed by: Blessing Serrano MD 28-Dec-2018 08:40:37
[2018-12-28] MEDS ORDERED: ALBUTEROL SULFATE HFA (90 MCG/PUFF) 8 GM MDI (1 MDI/ER DISP) IH ONE (10:25)
--- NOTE | 2018-12-28 10:25 | ER Document Report ---
ED General - General Chief Complaint: Shortness Of Breath Stated Complaint: TROUBLE BREATHING Time Seen by Provider: 12/28/18 06:59 Primary Care Provider: ASPEN AKERS FNP-C [Primary Care Provider] - Follow up as needed TRAVEL OUTSIDE OF THE [place] IN LAST 30 DAYS: No - HPI Patient complains to provider of: Difficulty in breathing Notes: Patient here for evaluation of difficulty in breathing. Patient has a history of COPD. Patient is on home O2. According EMS patient was called for shortness of breath cough with sputum. Patient denies any recent antibiotics. According EMS patient was noncompliant with his oxygen and has a history of noncompliance with his medical regimen. Upon my evaluation patient asked to be nontoxic was on BiPAP which was ordered by the nursing staff. Patient resting comfortably. Denies fever chills nausea vomiting - Related Data Allergies/Adverse Reactions: No Known Allergies Allergy (Verified 10/11/18 11:12) Past Medical History - Social History Smoking Status: Current Every Day Smoker Drug Abuse: Cocaine, Prescription drugs Family History: CAD, Hyperlipidemia, Hypertension Patient has suicidal ideation: No Patient has homicidal ideation: No - Past Medical History Cardiac Medical History: Reports: Hx Congestive Heart Failure, Hx Coronary Artery Disease, Hx Heart Attack - History of, Hx Hypertension Denies: Hx DVT, Hx Hypercholesterolemia, Hx Pulmonary Embolism Pulmonary Medical History: Reports: Hx Bronchitis, Hx COPD, Hx Respiratory Failure Neurological Medical History: Reports: Hx Seizures - Seizures when drinking states he has not drank in 16 years Endocrine Medical History: Denies: Hx Diabetes Mellitus Type 1, Hx Diabetes Mellitus Type 2, Hx Hyperthyroidism, Hx Hypothyroidism Renal/ Medical History: Denies: Hx Peritoneal Dialysis GI Medical History: Denies: Hx Cirrhosis, Hx Gastroesophageal Reflux Disease, Hx Hepatitis Musculoskeletal Medical History: Reports Hx Arthritis, Denies Hx Gout, Reports Hx Musculoskeletal Deformity - degenerative disc disease, Reports Hx Musculoskeletal Trauma Psychiatric Medical History: Reports: Hx Attention Deficit Hyperactivity Disorder, Hx Bipolar Disorder, Hx Depression - major, Hx Schizoaffective Disorder Traumatic Medical History: Reports: Hx Fractures, Hx Spine Fracture - States "back in 2 places" Infectious Medical History: Denies: Hx Hepatitis Past Surgical History: Reports: Other - Patient states he had left pleural effusion status post chest tube placemen Review of Systems - Review of Systems Constitutional: No symptoms reported EENT: No symptoms reported Cardiovascular: No symptoms reported Respiratory: Cough, Short of breath Gastrointestinal: No symptoms reported Genitourinary: No symptoms reported Male Genitourinary: No symptoms reported Musculoskeletal: No symptoms reported Skin: No symptoms reported Hematologic/Lymphatic: No symptoms reported Neurological/Psychological: No symptoms reported Physical Exam - Vital signs Vitals: Resp Pulse Ox 20 100 12/28/18 07:06 12/28/18 07:06 Interpretation: Normal - General General appearance: Appears well, Alert - HEENT Head: Normocephalic, Atraumatic Eyes: Normal Pupils: PERRL - Respiratory Respiratory status: No respiratory distress Chest status: Nontender Breath sounds: Wheezing Chest palpation: Normal - Cardiovascular Rhythm: Regular Heart sounds: Normal auscultation Murmur: No - Abdominal Inspection: Normal Distension: No distension Bowel sounds: Normal Tenderness: Nontender Organomegaly: No organomegaly - Back Back: Normal, Nontender - Extremities General upper extremity: Normal inspection, Nontender, Normal color, Normal ROM, Normal temperature General lower extremity: Normal inspection, Nontender, Normal color, Normal ROM, Normal temperature, Normal weight bearing. No: Alina's sign - Neurological Neuro grossly intact: Yes Cognition: Normal Orientation: AAOx4 [place] Coma Scale Eye Opening: Spontaneous [place] Coma Scale Verbal: Oriented [place] Coma Scale Motor: Obeys Commands [place] Coma Scale Total: 15 Speech: Normal Motor strength normal: LUE, RUE, LLE, RLE Sensory: Normal - Psychological Associated symptoms: Normal affect, Normal mood - Skin Skin Temperature: Warm Skin Moisture: Dry Skin Color: Normal Course - Re-evaluation Re-evalutation: 12/28/18 15:07 Patient was taken off BiPAP and monitor. Laboratory studies not show any critical pathology. Patient will be discharged home follow-up with primary care physician patient was given albuterol here with improvement of his wheezing upon discharge clear lung mccarthy. - Vital Signs Vital signs: Temp Pulse Resp BP Pulse Ox 25 H 97 12/28/18 09:41 12/28/18 09:41 - Laboratory Result Diagrams: 12/28/18 07:10 12/28/18 07:10 Laboratory results interpreted by me: 12/28/18 12/28/18 07:10 07:10 RDW 14.7 H Eosinophils % 17.1 H Absolute Eosinophils 1.0 H BUN 6 L Creatine Kinase 529 H Discharge - Discharge Clinical Impression: COPD exacerbation Condition: Good Disposition: HOME, SELF-CARE Instructions: Chronic Obstructive Lung Disease ([facility]) Additional Instructions: Your laboratory results today chest x-ray did not show any signs of pneumonia or acute abnormality. Please continue to wear your oxygen at home as previously prescribed. Please use the albuterol given to you here either 1 treatment or 2 puffs on the inhaler every 4 hours for shortness of breath. Follow-up with your primary care physician return to the ER symptoms worsen. Prescriptions: Albuterol Sulfate [Proventil 0.5% Neb 2.5 mg/0.5 ml Vial.neb] 2.5 mg NEB Q4 #60 vial.neb Referrals: ASPEN AKERS FNP-C [Primary Care Provider] - Follow up as needed
== END 2018-12-28 10:34 | disposition home or self-care (01) ==
LOC: ER 06:55
DX: J44.1 Chronic obstructive pulmonary disease with (acute) exacerbation (principal); Z99.81 Dependence on supplemental oxygen; F17.200 Nicotine dependence, unspecified, uncomplicated; I50.9 Heart failure, unspecified; I25.10 Atherosclerotic heart disease of native coronary artery without angina pectoris; I25.2 Old myocardial infarction; I11.0 Hypertensive heart disease with heart failure
CPT/HCPCS: 93005; 99285; 36415; 82553; 80307; 82550; 83690; 83735; 85025; 85610; 80053; 84484; 82803; 83880; 71045; 93010; 94660; J3475; J3490; J7620

== ENCOUNTER 2019-05-13 15:50 | Emergency (ER) | payer MEDICAID ==
[2019-05-13 16:08] VITALS: BP 150/79
--- NOTE | 2019-05-14 00:17 | EKG REPORT ---
SEVERITY:- ABNORMAL ECG - SINUS RHYTHM LEFT VENTRICULAR HYPERTROPHY : Confirmed by: Ivan Oseguera 14-May-2019 00:16:32
== END 2019-05-13 17:37 | disposition left against medical advice (07) ==
LOC: ER 15:50
DX: Z53.21 Procedure and treatment not carried out due to patient leaving prior to being seen by health care provider (principal)

== ENCOUNTER 2019-07-16 03:50 | Inpatient (IN) | payer MEDICAID ==
[2019-07-16] MEDS ORDERED: IPRATROPIUM/ALBUTEROL 0.5-2.5 MG/3 ML AMPUL NEB ONE (04:07)
--- NOTE | 2019-07-16 04:09 | ER Document Report ---
ED Respiratory Problem - General Chief Complaint: Shortness Of Breath Stated Complaint: DIFFICULTY BREATHING Time Seen by Provider: 07/16/19 04:01 Primary Care Provider: ASPEN AKERS FNP-C [Primary Care Provider] - Follow up as needed Notes: Patient is a 59-year-old male that comes to the emergency department for chief complaint of difficulty breathing. Patient smokes, has a history of COPD, he states he has had worsening difficulty breathing for over a week now. He denies fever/chills, vomiting, chest pain. He states that he feels much improved after EMS gave him 2 DuoNeb treatments and Solu-Medrol. He was found with an initial pulse oxygen saturation of 75%. Patient states he is supposed to be on home oxygen as needed but he does not have this. Patient also reports a history of CAD and "getting fluid pulled off the lungs". He denies ever being intubated. TRAVEL OUTSIDE OF THE [place] IN LAST 30 DAYS: No - Related Data Allergies/Adverse Reactions: No Known Allergies Allergy (Verified 10/11/18 11:12) Past Medical History - General Information source: Patient - Social History Smoking Status: Current Every Day Smoker Smoking Education Provided: Yes - <3 min Drug Abuse: None Lives with: Spouse/Significant other Family History: CAD, Hyperlipidemia, Hypertension Patient has suicidal ideation: No Patient has homicidal ideation: No - Past Medical History Cardiac Medical History: Reports: Hx Congestive Heart Failure, Hx Coronary Artery Disease, Hx Heart Attack - History of, Hx Hypertension Denies: Hx DVT, Hx Hypercholesterolemia, Hx Pulmonary Embolism Pulmonary Medical History: Reports: Hx Bronchitis, Hx COPD, Hx Respiratory Failure Neurological Medical History: Reports: Hx Seizures - Seizures when drinking states he has not drank in 16 years Endocrine Medical History: Denies: Hx Diabetes Mellitus Type 1, Hx Diabetes Mellitus Type 2, Hx Hyperthyroidism, Hx Hypothyroidism Renal/ Medical History: Denies: Hx Peritoneal Dialysis GI Medical History: Denies: Hx Cirrhosis, Hx Gastroesophageal Reflux Disease, Hx Hepatitis Musculoskeletal Medical History: Reports Hx Arthritis, Denies Hx Gout, Reports Hx Musculoskeletal Deformity - degenerative disc disease, Reports Hx Mu sculoskeletal Trauma Psychiatric Medical History: Reports: Hx Attention Deficit Hyperactivity Disorder, Hx Bipolar Disorder, Hx Depression - major, Hx Schizoaffective Disorder Traumatic Medical History: Reports: Hx Fractures, Hx Spine Fracture - States "back in 2 places" Infectious Medical History: Denies: Hx Hepatitis Past Surgical History: Reports: Other - Patient states he had left pleural effu ina status post chest tube placemen - Immunizations Hx Diphtheria, Pertussis, Tetanus Vaccination: Yes Review of Systems - Review of Systems Constitutional: No symptoms reported EENT: No symptoms reported Cardiovascular: No symptoms reported Respiratory: See HPI Gastrointestinal: No symptoms reported Genitourinary: No symptoms reported Male Genitourinary: No symptoms reported Musculoskeletal: No symptoms reported Skin: No symptoms reported Hematologic/Lymphatic: No symptoms reported Neurological/Psychological: No symptoms reported Physical Exam - Vital signs Vitals: Resp BP Pulse Ox 21 H 142/88 H 79 L 07/16/19 03:54 07/16/19 03:54 07/16/19 03:54 - Notes Notes: GENERAL: Alert and responsive HEAD: Normocephalic, atraumatic. EYES: Pupils equal, round, and reactive to light. Extraocular movements intact. ENT: Oral mucosa moist, tongue midline. Oropharynx unremarkable. Airway patent. NECK: Full range of motion. Supple. Trachea midline. LUNGS: Very decreased throughout, scattered expiratory wheezes, tachypnea. Patient still can speak in full sentences. HEART: Regular rate and rhythm. No murmur ABDOMEN: Soft, non-tender. Non-distended. EXTREMITIES: Moves all 4 extremities spontaneously. No edema, normal radial and dorsalis pedis pulses bilaterally. No cyanosis. BACK: no cervical, thoracic, lumbar midline tenderness. No saddle anesthesia, normal distal neurovascular exam. NEUROLOGICAL: Alert and oriented x3. Normal speech. Cranial nerves II through XII grossly intact. SKIN: Warm, dry, normal turgor. No rashes or lesions noted. Course - Re-evaluation Re-evalutation: Patient with tight lung mccarthy throughout and expiratory wheezes, however he does not have labored breathing or tachypnea on my exam, he speaks in full sentences. He states he is much improved after DuoNeb's, he is doing well at 98% on 3 L nasal cannula. Completing treatments, work-up pending. Chest x-ray with no acute findings. EKG without acute findings. CBC, chemistry, troponin nonspecific. Venous blood gas unremarkable. On reevaluation patient is improved, doing well on the oxygen, I discussed with patient potential discharge home. Patient states he has oxygen as needed at home normally but he has run out and does not have any available, he has not had any for some time. I turned the oxygen off and patient was noted to desaturate down into the mid 80s even without ambulation. Patient states he feels significantly below his baseline as well. I was not even able to ambulate the patient because of his desaturation at rest. Will discuss with hospitalist for admission for COPD exacerbation with oxygen dependence/hypoxia. 07/16/19 07:35 Discussed with Shayy Arredondo PA-C, patient accepted for admission. - Vital Signs Vital signs: Temp Pulse Resp BP Pulse Ox 15 135/99 H 99 07/16/19 07:01 07/16/19 07:01 07/16/19 07:01 - Laboratory Result Diagrams: 07/16/19 04:20 07/16/19 04:20 Laboratory results interpreted by me: 07/16/19 04:20 Eos % (Auto) 12.4 H Absolute Eos (auto) 0.9 H - EKG Interpretation by Me Additional EKG results interpreted by me: EKG shows sinus rhythm at a rate of 82, QTC of 439, no T wave inversions or ST segment changes in consecutive leads. Normal axis. Borderline R wave progression. Discharge - Discharge Clinical Impression: COPD exacerbation, Wheezing, Respiratory distress, Hypoxia, Tobacco abuse Condition: Stable Disposition: ADMITTED INPATIENT Admitting Provider: Eliazar VALLE Unit Admitted: Telemetry Referrals: ASPEN AKERS FNP-C [Primary Care Provider] - Follow up as needed
[2019-07-16] MEDS: MAGNESIUM SULFATE/D5W 1 GM/100 ML RTUPB IV SCH ×2 (04:14→04:53)
[2019-07-16 04:35] LABS: VENOUS BLOOD BASE EXCESS -0.2 mmol/L; VENOUS BLOOD HCO3 27.2 mmol/L (20-32); VENOUS BLOOD PCO2 55.8 mmHg (35-63); VENOUS BLOOD PH 7.31 (7.30-7.42)
[2019-07-16 04:36] LABS: ABSOLUTE EOSINOPHILS # (AUTO) 0.9 10^3/uL (0.0-0.6); ABSOLUTE LYMPHOCYTES (AUTO) 1.5 10^3/uL (0.5-4.7); ABSOLUTE MONOCYTES (AUTO) 0.5 10^3/uL (0.1-1.4); ABSOLUTE NEUT (AUTO) 4.3 10^3/uL (1.7-8.2); BASOPHILS % (AUTO) 0.2 % (0-2); EOSINOPHILS % (AUTO) 12.4 % (0-6); HEMATOCRIT 39.8 % (37.9-51.0); HEMOGLOBIN 13.7 g/dL (13.5-17.0); LYMPHOCYTES % (AUTO) 20.5 % (13-45); MEAN CORPUSCULAR HEMOGLOBIN 30.9 pg (27.0-33.4); MEAN CORPUSCULAR HGB CONC 34.3 g/dL (32.0-36.0); MEAN CORPUSCULAR VOLUME 90 fl (80-97); MONOCYTES % (AUTO) 7.2 % (3-13); PLATELET COUNT 183 10^3/uL (150-450); RED BLOOD COUNT 4.42 10^6/uL (4.35-5.55); RED CELL DISTRIBUTION WIDTH 13.8 % (11.5-14.0); SEGMENTED NEUTROPHILS % (AUTO) 59.7 % (42-78); TOTAL CELLS COUNTED % (AUTO) 100 %; WHITE BLOOD COUNT 7.3 10^3/uL (4.0-10.5)
--- NOTE | 2019-07-16 04:44 | RADIOLOGY REPORT (SQ) ---
Chest single view on 07/16/2019 at 4:25 AM CLINICAL INDICATION: Difficulty breathing COMPARISON: 12/28/2018 FINDINGS: There is a trace left pleural effusion versus pleural thickening again noted. The lungs are otherwise clear. Cardiac, hilar and mediastinal contours are within normal limits. Pulmonary vascularity is within normal limits. No bony abnormality is noted. IMPRESSION: No significant change and no acute disease.
[2019-07-16 04:53] LABS: ALBUMIN 4.4 g/dL (3.5-5.0); ALKALINE PHOSPHATASE 61 U/L (38-126); ANION GAP 8 (5-19); ASPARTATE AMINO TRANSFERASE 18 U/L (17-59); BILIRUBIN,DIRECT 0.1 mg/dL (0.0-0.4); BILIRUBIN,TOTAL 0.2 mg/dL (0.2-1.3); BLOOD UREA NITROGEN 11 mg/dL (7-20); CALCIUM 9.5 mg/dL (8.4-10.2); CARBON DIOXIDE 29 mmol/L (22-30); CHLORIDE 101 mmol/L (98-107); GLUCOSE 97 mg/dL (75-110); POTASSIUM 3.7 mmol/L (3.6-5.0); TOTAL PROTEIN 6.7 g/dL (6.3-8.2)
[2019-07-16] MEDS ORDERED: TEMAZEPAM 15 MG CAPSULE PO PRN (07:50)
[2019-07-16] MEDS ORDERED: ONDANSETRON HCL INJ/PF 4 MG/2 ML SDV IV PRN (07:50)
[2019-07-16] MEDS ORDERED: ALBUTEROL SULFATE 0.083% NEB 2.5 MG/3 ML AMPUL NEB PRN (07:54)
--- NOTE | 2019-07-16 07:57 | Progress Note Acknowledgement ---
Progress Note Acknowledgement Progess Note Acknowledgement: I, the undersigned member of the medical staff with appropriate privileges and with supervisory authority over [Sourav Rangel], a dependent practice allied health professional, acknowledge that I have reviewed the progress notes entered on this patient, and in my professional judgment believe that the assessment made and/or any care evidenced was appropriate
[2019-07-16] MEDS ORDERED: METHYLPREDNISOLONE INJ 40 MG/1 ML SDV IV SCH (08:00)
--- NOTE | 2019-07-16 08:05 | PDOC H&P ---
History of Present Illness Admission Date/PCP: DULCE CRESPO Patient complains of: Shortness of breath, cough, wheeze History of Present Illness: GALI CHURCH JR is a 59 year old male who presents to the ER with several day history of increased shortness of breath, cough and wheeze. Patient does have a history of COPD although he is ran out of his home albuterol puffers. Patient is also supposed be on home O2 as needed but has been out of his oxygen for a while and is not anything to replete it. Patient states he continues to smoke although he has cut down. He had no treatment prior to arrival all activity as an aggravating factor. Past Medical History Cardiac Medical History: Reports: Congestive Heart Failure, Coronary Artery Disease, Myocardial Infarction - History of, Hypertension Denies: DVT, Hyperlipidema, Pulmonary Embolism Pulmonary Medical History: Reports: Bronchitis, Chronic Obstructive Pulmonary Disease (COPD), Respiratory Failure Neurological Medical History: Reports: Seizures - Seizures when drinking states he has not drank in 16 years Endocrine Medical History: Denies: Diabetes Mellitus Type 1, Diabetes Mellitus Type 2, Hyperthyroidism, Hypothyroidism GI Medical History: Denies: Cirrhosis, Gastroesophageal Reflux Disease, Hepatitis Musculoskeltal Medical History: Reports: Arthritis Denies: Gout Psychiatric Medical History: Reports: Attention Deficit Hyperactivity Disorder, Bipolar Disorder, Depression - major, Schizoaffective Disorder Hematology: Reports: Anemia, Bleeding Tendencies Past Surgical History Past Surgical History: Reports: Other - Patient states he had left pleural effusion status post chest tube placemen Social History Information Source: Patient Lives with: Spouse/Significant other Smoking Status: Current Every Day Smoker Cigarettes Packs Per Day: 0.5 Frequency of Alcohol Use: None Hx Recreational Drug Use: No Drugs: None Hx Prescription Drug Abuse: Yes - Advance Directive Resuscitation Status: Full Code Family History Family History: CAD, Hyperlipidemia, Hypertension Parental Family History Reviewed: Yes Children Family History Reviewed: Yes Sibling(s) Family History Reviewed.: Yes Medication/Allergy Home Medications: Albuterol Sulfate [Proair HFA Inhalation Aerosol 8.5 gm MDI] 2 puff IH Q6HP PRN 10/11/18 Benztropine Mesylate [Cogentin 1 mg Tablet] 1 mg PO DAILY 10/11/18 Buspirone HCl [Buspar 10 mg Tablet] 10 mg PO Q12 10/11/18 Divalproex Sodium [Depakote] 500 mg PO Q12 10/11/18 Lurasidone HCl [Latuda] 20 mg PO QHS 10/11/18 Metoprolol Succinate [Toprol Xl 25 mg Tab.sr] 25 mg PO DAILY 10/11/18 Benztropine Mesylate [Cogentin 1 mg Tablet] 1 mg PO QHS tablet 10/14/18 Buspirone HCl [Buspar 10 mg Tablet] 10 mg PO BID tablet 10/14/18 Lurasidone HCl [Latuda 40 mg Tablet] 20 mg PO DAILY #30 tablet 10/14/18 Albuterol Sulfate [Proventil 0.5% Neb 2.5 mg/0.5 ml Vial.neb] 2.5 mg NEB Q4 #60 vial.neb 12/28/18 Dextroamphetamine/Amphetamine [Adderall Xr 30 mg Capsule] 30 mg PO DAILY 12/28/18 Hydroxyzine HCl [Atarax 25 mg Tablet] 1 - 2 tab PO QID 12/28/18 Oxycodone HCl/Acetaminophen [Oxycodone-Acetaminophen 10-325] 1 tab PO Q4 12/28/18 Paroxetine HCl [Paxil 20 mg Tablet] 20 mg PO DAILY 12/28/18 Allergies/Adverse Reactions: No Known Allergies Allergy (Verified 10/11/18 11:12) Review of Systems Constitutional: ABSENT: chills, fever(s), headache(s), weight gain, weight loss Eyes: ABSENT: visual disturbances Ears: ABSENT: hearing changes Cardiovascular: ABSENT: chest pain, dyspnea on exertion, edema, orthropnea, palpitations Respiratory: PRESENT: cough, other - Wheeze, shortness of breath. ABSENT: hemoptysis Gastrointestinal: ABSENT: abdominal pain, constipation, diarrhea, hematemesis, hematochezia, nausea, vomiting Genitourinary: ABSENT: dysuria, hematuria Musculoskeletal: ABSENT: joint swelling Integumentary: ABSENT: rash, wounds Neurological: ABSENT: abnormal gait, abnormal speech, confusion, dizziness, focal weakness, syncope Psychiatric: ABSENT: anxiety, depression, homidical ideation, suicidal ideation Endocrine: ABSENT: cold intolerance, heat intolerance, polydipsia, polyuria Hematologic/Lymphatic: ABSENT: easy bleeding, easy bruising Physical Exam Vital Signs: Temp Pulse Resp BP Pulse Ox 15 135/99 H 99 07/16/19 07:01 07/16/19 07:01 07/16/19 07:01 Intake & Output 07/15/19 07/16/19 07/17/19 06:59 06:59 06:59 Intake Total 165 Balance 165 Weight 65.317 kg General appearance: PRESENT: no acute distress, well-developed, well-nourished Head exam: PRESENT: atraumatic, normocephalic Eye exam: PRESENT: conjunctiva pink, EOMI, PERRLA. ABSENT: scleral icterus Ear exam: PRESENT: normal external ear exam Mouth exam: PRESENT: moist, tongue midline Neck exam: ABSENT: carotid bruit, JVD, lymphadenopathy, thyromegaly Respiratory exam: PRESENT: decreased breath sounds, symmetrical, tachypnea, unlabored, wheezes. ABSENT: rales, rhonchi Cardiovascular exam: PRESENT: RRR. ABSENT: diastolic murmur, rubs, systolic murmur Pulses: PRESENT: normal dorsalis pedis pul Vascular exam: PRESENT: normal capillary refill GI/Abdominal exam: PRESENT: normal bowel sounds, soft. ABSENT: distended, guarding, mass, organolmegaly, rebound, tenderness Rectal exam: PRESENT: deferred Extremities exam: PRESENT: full ROM. ABSENT: calf tenderness, clubbing, pedal edema Neurological exam: PRESENT: alert, awake, oriented to person, oriented to place, oriented to time, oriented to situation, CN II-XII grossly intact. ABSENT: motor sensory deficit Psychiatric exam: PRESENT: appropriate affect, normal mood. ABSENT: homicidal ideation, suicidal ideation Skin exam: PRESENT: dry, intact, warm. ABSENT: cyanosis, rash Results Laboratory Results: 07/16/19 04:20 07/16/19 04:20 07/16/19 07/16/19 07/16/19 04:20 04:20 04:20 WBC 7.3 RBC 4.42 Hgb 13.7 Hct 39.8 MCV 90 MCH 30.9 MCHC 34.3 RDW 13.8 Plt Count 183 Seg Neutrophils % 59.7 VBG pH 7.31 VBG pCO2 55.8 VBG HCO3 27.2 VBG Base Excess -0.2 Sodium 137.9 Potassium 3.7 Chloride 101 Carbon Dioxide 29 Anion Gap 8 BUN 11 Creatinine 0.91 Est GFR ( Amer) > 60 Glucose 97 Calcium 9.5 Total Bilirubin 0.2 AST 18 Alkaline Phosphatase 61 Total Protein 6.7 Albumin 4.4 07/16/19 04:20 Troponin I < 0.012 Impressions: Chest X-Ray 07/16/19 04:07 IMPRESSION: No significant change and no acute disease. Assessment and Plan - Diagnosis (1) Acute exacerbation of chronic obstructive pulmonary disease (COPD) Is this a current diagnosis for this admission?: Yes Plan: 07/16/2019-at this time admit patient medical surgical floor. Levaquin 750 mg IV daily, DuoNeb every 12, albuterol nebs q. 2 to PRN, and Pulmicort 0.5 mg nebulized every 12 hours. Supportive measures including O2. We will have patient seen by discharge planning for home O2 needs. (2) Acute on chronic respiratory failure with hypoxemia Is this a current diagnosis for this admission?: Yes Plan: 07/16/2019-patient initially was sats in the mid 80s in the ER. Patient placed on O2 with sats in the mid 90s. Once patient comes off the O2 he did drop back down to the mid 80s. Will be patient on supportive O2 and have case management work on supply patient with home O2 on discharge. (3) Bipolar 1 disorder with moderate jovi Is this a current diagnosis for this admission?: Yes Plan: 07/16/2019-once patient medications have been reconciled by pharmacy I will continue all home medications for bipolar with jovi. (4) Anxiety Is this a current diagnosis for this admission?: Yes Plan: 07/16/2019 -continue home BuSpar (5) Hypertension Is this a current diagnosis for this admission?: Yes Plan: 07/16/2019-continue metoprolol from home (6) Depression Is this a current diagnosis for this admission?: Yes Plan: 07/16/2019-continue paroxetine from home (7) ADHD Is this a current diagnosis for this admission?: Yes Plan: 07/16/2019-continue home Adderall - Time Time Spent with patient: 35 or more minutes - Inpatient Certification Based on my medical assessment, after consideration of the patient's comorbidities, presenting symptoms, or acuity I expect that the services needed warrant INPATIENT care.: Yes I certify that my determination is in accordance with my understanding of Medicare's requirements for reasonable and necessary INPATIENT services [42 CFR 412.3e].: Yes Medical Necessity: Other - IV antibiotics, IV steroids
[2019-07-16] MEDS: IPRATROPIUM/ALBUTEROL 0.5-2.5 MG/3 ML AMPUL NEB SCH ×2 (08:42→20:22)
[2019-07-16] MEDS: METHYLPREDNISOLONE INJ 125 MG/2 ML SDV IV SCH ×3 (09:25→22:10)
[2019-07-16] MEDS: BUDESONIDE NEB 0.5 MG/2 ML AMPUL NEB SCH ×2 (09:39→20:22)
[2019-07-16] MEDS: OXYCODONE-ACETAMINOPHEN 5-325 MG TABLET PO PRN ×3 (13:28→22:10)
[2019-07-16] MEDS ORDERED: GUAIFENESIN/D-METHORPHAN (200-20 MG) SYRUP 10 ML PO PRN (13:38)
[2019-07-16] MEDS: LEVOFLOXACIN 750 MG/D5W RTU 750 MG/150 ML RTUPB IV SCH (14:38)
[2019-07-17] MEDS: OXYCODONE-ACETAMINOPHEN 5-325 MG TABLET PO PRN ×5 (02:37→23:46)
[2019-07-17] MEDS: ACETAMINOPHEN 325 MG TABLET PO PRN ×3 (02:38→22:45)
[2019-07-17 05:25] LABS: HEMATOCRIT 36.9 % (37.9-51.0); HEMOGLOBIN 12.8 g/dL (13.5-17.0); MEAN CORPUSCULAR HEMOGLOBIN 31.2 pg (27.0-33.4); MEAN CORPUSCULAR HGB CONC 34.6 g/dL (32.0-36.0); MEAN CORPUSCULAR VOLUME 90 fl (80-97); PLATELET COUNT 209 10^3/uL (150-450); RED BLOOD COUNT 4.09 10^6/uL (4.35-5.55); RED CELL DISTRIBUTION WIDTH 13.6 % (11.5-14.0); WHITE BLOOD COUNT 12.8 10^3/uL (4.0-10.5)
[2019-07-17 05:27] LABS: ANION GAP 13 (5-19); BLOOD UREA NITROGEN 18 mg/dL (7-20); CALCIUM 9.5 mg/dL (8.4-10.2); CARBON DIOXIDE 22 mmol/L (22-30); CHLORIDE 93 mmol/L (98-107); GLUCOSE 168 mg/dL (75-110); PHOSPHORUS 3.4 mg/dL (2.5-4.5); POTASSIUM 4.5 mmol/L (3.6-5.0)
[2019-07-17 05:44] LABS: ABSOLUTE LYMPHOCYTES# (MANUAL) 0.4 10^3/uL (0.5-4.7); ABSOLUTE MONOCYTES # (MANUAL) 0.1 10^3/uL (0.1-1.4); BASOPHILS % (MANUAL) 0 % (0-2); EOSINOPHILS % (MANUAL) 0 % (0-6); LYMPHOCYTES % (MANUAL) 3 % (13-45); MONOCYTES % (MANUAL) 1 % (3-13); SEGMENTED NEUTROPHILS % (MAN) 96 % (42-78); TOTAL CELLS COUNTED 100
[2019-07-17 05:50] LABS: PLATELET COMMENT ADEQUATE; PLATELET LARGE PRESENT
[2019-07-17] MEDS: METHYLPREDNISOLONE INJ 125 MG/2 ML SDV IV SCH ×3 (06:34→22:49)
[2019-07-17] MEDS: BUDESONIDE NEB 0.5 MG/2 ML AMPUL NEB SCH (07:40)
[2019-07-17] MEDS: IPRATROPIUM/ALBUTEROL 0.5-2.5 MG/3 ML AMPUL NEB SCH (07:40)
[2019-07-17] MEDS ORDERED: (PENDING PHARMACY ID) (Oxycodone Hcl/Acetaminophen [Oxycodone-Acetaminophen 10-325] 1 TAB) PO PRN (08:47)
[2019-07-17] MEDS ORDERED: DEXTROSE 40% GEL 15 GM TUBE PO PRN ×2 (08:49)
[2019-07-17] MEDS ORDERED: GLUCAGON,HUMAN RECOMB 1 MG INJ IM PRN (08:49)
[2019-07-17] MEDS ORDERED: DEXTROSE 50%-WATER 25 GM/50 ML DISP.SYRIN IV PRN ×2 (08:49)
--- NOTE | 2019-07-17 08:53 | PDOC PROGRESS REPORT ---
Subjective Progress Note for:: 07/17/19 Subjective:: 07/17/2019-chronic back and leg pain Reason For Visit: ACUTE ESACERBATION OF CHRONIC COPD,ACUTE ON Physical Exam Vital Signs: Temp Pulse Resp BP Pulse Ox 97.5 F 85 16 138/83 H 93 07/17/19 07:40 07/17/19 07:46 07/17/19 07:46 07/17/19 07:40 07/17/19 07:46 Intake & Output 07/16/19 07/17/19 07/18/19 06:59 06:59 06:59 Intake Total 165 2656 Output Total 1700 Balance 165 956 Weight 65.317 kg 60.2 kg General appearance: PRESENT: no acute distress, well-developed, well-nourished Head exam: PRESENT: atraumatic, normocephalic Eye exam: PRESENT: conjunctiva pink, EOMI, PERRLA. ABSENT: scleral icterus Ear exam: PRESENT: normal external ear exam Mouth exam: PRESENT: moist, tongue midline Neck exam: ABSENT: carotid bruit, JVD, lymphadenopathy, thyromegaly Respiratory exam: PRESENT: decreased breath sounds, symmetrical, tachypnea, unlabored, wheezes. ABSENT: rales, rhonchi Cardiovascular exam: PRESENT: RRR. ABSENT: diastolic murmur, rubs, systolic murmur Pulses: PRESENT: normal dorsalis pedis pul Vascular exam: PRESENT: normal capillary refill GI/Abdominal exam: PRESENT: normal bowel sounds, soft. ABSENT: distended, guarding, mass, organolmegaly, rebound, tenderness Rectal exam: PRESENT: deferred Extremities exam: PRESENT: full ROM. ABSENT: calf tenderness, clubbing, pedal edema Neurological exam: PRESENT: alert, awake, oriented to person, oriented to place, oriented to time, oriented to situation, CN II-XII grossly intact. ABSENT: motor sensory deficit Psychiatric exam: PRESENT: appropriate affect, normal mood. ABSENT: homicidal ideation, suicidal ideation Skin exam: PRESENT: dry, intact, warm. ABSENT: cyanosis, rash Results Laboratory Results: 07/17/19 04:15 07/17/19 04:15 07/17/19 07/17/19 04:15 04:15 WBC 12.8 H RBC 4.09 L Hgb 12.8 L Hct 36.9 L MCV 90 MCH 31.2 MCHC 34.6 RDW 13.6 Plt Count 209 Seg Neutrophils % Not Reportable Sodium 128.2 L Potassium 4.5 Chloride 93 L Carbon Dioxide 22 Anion Gap 13 BUN 18 Creatinine 0.92 Est GFR ( Amer) > 60 Glucose 168 H Calcium 9.5 Phosphorus 3.4 Magnesium 1.8 07/16/19 04:20 Troponin I < 0.012 Impressions: Chest X-Ray 07/16/19 04:07 IMPRESSION: No significant change and no acute disease. Assessment and Plan - Diagnosis (1) Acute exacerbation of chronic obstructive pulmonary disease (COPD) Is this a current diagnosis for this admission?: Yes Plan: 07/16/2019-at this time admit patient medical surgical floor. Levaquin 750 mg IV daily, DuoNeb every 12, albuterol nebs q. 2 to PRN, and Pulmicort 0.5 mg nebulized every 12 hours. Supportive measures including O2. We will have patient seen by discharge planning for home O2 needs. 07/17/2019-improved. Still has scattered wheezing noted. Continue current therapy along with supportive O2. Discharge planning for home O2 needs. (2) Acute on chronic respiratory failure with hypoxemia Is this a current diagnosis for this admission?: Yes Plan: 07/16/2019-patient initially was sats in the mid 80s in the ER. Patient placed on O2 with sats in the mid 90s. Once patient comes off the O2 he did drop back down to the mid 80s. Will be patient on supportive O2 and have case management work on supply patient with home O2 on discharge. 07/17/2019-improved with use of O2 therapy and current management of COPD. Continue to follow (3) Bipolar 1 disorder with moderate jovi Is this a current diagnosis for this admission?: Yes Plan: 07/16/2019-once patient medications have been reconciled by pharmacy I will continue all home medications for bipolar with jovi. 07/17/2019-Home medications have been reconciled. (4) Anxiety Is this a current diagnosis for this admission?: Yes Plan: 07/16/2019 -continue home BuSpar 07/17/2019-continue BuSpar (5) Hypertension Is this a current diagnosis for this admission?: Yes Plan: 07/16/2019-continue metoprolol from home 07/17/2019-stable. Continue home medications (6) Depression Is this a current diagnosis for this admission?: Yes Plan: 07/16/2019-continue paroxetine from home 07/17/2019-stable continue home paroxetine (7) ADHD Is this a current diagnosis for this admission?: Yes Plan: 07/16/2019-continue home Adderall 07/17/2019-continue home Adderall (8) Hyperglycemia Is this a current diagnosis for this admission?: Yes Plan: 07/17/2019-most likely steroid-induced. Will place patient on sliding scale insulin before meals and at bedtime. A1c. - Time Time Spent with patient: 15-24 minutes
[2019-07-17] MEDS: LEVOFLOXACIN 750 MG/D5W RTU 750 MG/150 ML RTUPB IV SCH (09:10)
[2019-07-17] MEDS: METOPROLOL SUCCINATE 25 MG TAB.SR.24H PO SCH (10:28)
[2019-07-17] MEDS: BUSPIRONE HCL 10 MG TABLET PO SCH ×2 (10:28→22:46)
[2019-07-17] MEDS: LISINOPRIL 10 MG TABLET PO SCH (10:29)
[2019-07-17] MEDS: OXYCODONE HCL IR 5 MG TABLET PO PRN ×3 (11:13→23:46)
[2019-07-17] MEDS: FLUTICASONE/VILANTEROL 200-25 MCG/DOSE IH SCH (11:13)
[2019-07-17] MEDS ORDERED: FLUTICASONE/VILANTEROL 200-25 MCG/DOSE IH SCH (12:00)
[2019-07-17] MEDS: INSULIN REG, HUMAN 100 UNIT/ML 3 ML VIAL (PYX) SUBCUT SCH ×3 (12:03→22:47)
[2019-07-17] MEDS ORDERED: ONDANSETRON HCL INJ/PF 4 MG/2 ML SDV IV PRN (13:00)
[2019-07-17] MEDS: GABAPENTIN 300 MG CAPSULE PO SCH ×2 (13:45→22:46)
--- NOTE | 2019-07-17 14:21 | EKG REPORT ---
SEVERITY:- ABNORMAL ECG - SINUS RHYTHM RIGHT ATRIAL ABNORMALITY BORDERLINE R WAVE PROGRESSION, ANTERIOR LEADS : Confirmed by: Ivan Oseguera 17-Jul-2019 14:20:07
[2019-07-17] MEDS ORDERED: LURASIDONE HCL 40 MG TABLET PO SCH (22:00)
[2019-07-17] MEDS ORDERED: (PENDING PHARMACY ID) (Lurasidone Hcl [Latuda] 20 MG) PO SCH (22:00)
[2019-07-17] MEDS ORDERED: BENZTROPINE MESYLATE 1 MG TABLET PO SCH (22:00)
[2019-07-18] MEDS: METHYLPREDNISOLONE INJ 125 MG/2 ML SDV IV SCH (06:30)
[2019-07-18] MEDS: OXYCODONE HCL IR 5 MG TABLET PO PRN (06:30)
[2019-07-18] MEDS: GABAPENTIN 300 MG CAPSULE PO SCH (06:30)
[2019-07-18] MEDS: OXYCODONE-ACETAMINOPHEN 5-325 MG TABLET PO PRN (06:31)
[2019-07-18 06:47] LABS: ABSOLUTE LYMPHOCYTES (AUTO) 0.7 10^3/uL (0.5-4.7); ABSOLUTE MONOCYTES (AUTO) 0.7 10^3/uL (0.1-1.4); ABSOLUTE NEUT (AUTO) 11.5 10^3/uL (1.7-8.2); BASOPHILS % (AUTO) 0.1 % (0-2); HEMATOCRIT 40.7 % (37.9-51.0); HEMOGLOBIN 13.7 g/dL (13.5-17.0); LYMPHOCYTES % (AUTO) 5.7 % (13-45); MEAN CORPUSCULAR HEMOGLOBIN 30.5 pg (27.0-33.4); MEAN CORPUSCULAR HGB CONC 33.6 g/dL (32.0-36.0); MEAN CORPUSCULAR VOLUME 91 fl (80-97); MONOCYTES % (AUTO) 5.7 % (3-13); PLATELET COUNT 217 10^3/uL (150-450); RED BLOOD COUNT 4.48 10^6/uL (4.35-5.55); RED CELL DISTRIBUTION WIDTH 13.9 % (11.5-14.0); SEGMENTED NEUTROPHILS % (AUTO) 88.5 % (42-78); TOTAL CELLS COUNTED % (AUTO) 100 %
[2019-07-18 07:10] LABS: ANION GAP 14 (5-19); BLOOD UREA NITROGEN 21 mg/dL (7-20); CALCIUM 9.7 mg/dL (8.4-10.2); CARBON DIOXIDE 23 mmol/L (22-30); CHLORIDE 94 mmol/L (98-107); GLUCOSE 120 mg/dL (75-110)
--- NOTE | 2019-07-18 07:31 | PDOC DISCHARGE SUMMARY ---
General - Admit/Disc Date/PCP Admission Date/Primary Care Provider: 07/16/19 08:15 DULCE CRESPO Discharge Date: 07/18/19 - Discharge Diagnosis (1) Acute exacerbation of chronic obstructive pulmonary disease (COPD) Is this a current diagnosis for this admission?: Yes (2) Acute on chronic respiratory failure with hypoxemia Is this a current diagnosis for this admission?: Yes (3) Bipolar 1 disorder with moderate jovi Is this a current diagnosis for this admission?: Yes (4) Anxiety Is this a current diagnosis for this admission?: Yes (5) Hypertension Is this a current diagnosis for this admission?: Yes (6) Depression Is this a current diagnosis for this admission?: Yes (7) ADHD Is this a current diagnosis for this admission?: Yes (8) Hyperglycemia Is this a current diagnosis for this admission?: Yes - Additional Information Resuscitation Status: Full Code Discharge Diet: As Tolerated Discharge Activity: Activity As Tolerated Prescriptions: Azithromycin 500 mg PO DAILY #3 tablet Prednisone 10 mg PO DAILY #21 tablet Home Medications: Albuterol Sulfate [Proair HFA Inhalation Aerosol 8.5 gm MDI] 2 puff IH Q6HP PRN 10/11/18 Lurasidone HCl [Latuda] 20 mg PO QHS 10/11/18 Metoprolol Succinate [Toprol Xl 25 mg Tab.sr] 25 mg PO DAILY 10/11/18 Oxycodone HCl/Acetaminophen [Oxycodone-Acetaminophen 10-325] 1 tab PO Q6HP PRN 12/28/18 Benztropine Mesylate [Cogentin 1 mg Tablet] 1 mg PO QHS MDD FILLED /5 FOR 30 DAY SUPPLY 07/16/19 Budesonide/Formoterol Fumarate [Symbicort HFA 160-4.5 mcg Inhaler 6 gm] 2 puff IH Q12 07/16/19 Buspirone HCl [Buspar 10 mg Tablet] 10 mg PO Q12 MDD FILLED 3/ FOR 30 DAY SUPPLY 07/16/19 Dextroamphetamine/Amphetamine [Dextroamp-Amphetamin 20 mg Tab] 20 mg PO TID 07/16/19 Gabapentin [Neurontin 300 mg Capsule] 300 mg PO Q8 07/16/19 Lisinopril [Prinivil 10 mg Tablet] 10 mg PO DAILY 07/16/19 Azithromycin 500 mg PO DAILY #3 tablet 07/18/19 Prednisone 10 mg PO DAILY #21 tablet 07/18/19 History of Present Illness Patient complains of: Chronic lower leg pain History of Present Illness: GALI CHURCH JR is a 59 year old male who presents to the ER with several day history of increased shortness of breath, cough and wheeze. Patient does have a history of COPD although he is ran out of his home albuterol puffers. Patient is also supposed be on home O2 as needed but has been out of his oxygen for a while and is not anything to replete it. Patient states he continues to smoke although he has cut down. He had no treatment prior to arrival all activity as an aggravating factor. Hospital Course Hospital Course: Patient was placed on medical surgical floor and treated with IV Levaquin, duo nebs every 12, albuterol nebs every 2 as needed and Pulmicort nebulized every 12 hours. Supportive measures including O2 which patient should be wearing at home but ran out will be kept in place during his stay. At this time patient is improved sufficiently return home. We will have case management work with getting him home O2 reestablished and field. I will place him on azithromycin 500 g p.o. daily x3 days and given prednisone Dosepak to continue. Patient will also continue all home nebulizers and albuterol treatments as needed. Patient will see his primary care practitioner within 1 week. Physical Exam Vital Signs: Temp Pulse Resp BP Pulse Ox 98.0 F 95 18 158/87 H 91 L 07/17/19 23:53 07/17/19 23:53 07/17/19 23:53 07/17/19 23:53 07/17/19 23:53 Intake & Output 07/17/19 07/18/19 07/19/19 06:59 06:59 06:59 Intake Total 2656 3161 Output Total 1700 300 Balance 956 2861 Weight 60.2 kg 60.8 kg General appearance: PRESENT: no acute distress, well-developed, well-nourished Head exam: PRESENT: atraumatic, normocephalic Eye exam: PRESENT: conjunctiva pink, EOMI, PERRLA. ABSENT: scleral icterus Ear exam: PRESENT: normal external ear exam Mouth exam: PRESENT: moist, tongue midline Neck exam: ABSENT: carotid bruit, JVD, lymphadenopathy, thyromegaly Respiratory exam: PRESENT: clear to auscultation nyasia. ABSENT: rales, rhonchi, wheezes Cardiovascular exam: PRESENT: RRR. ABSENT: diastolic murmur, rubs, systolic murmur Pulses: PRESENT: normal dorsalis pedis pul Vascular exam: PRESENT: normal capillary refill GI/Abdominal exam: PRESENT: normal bowel sounds, soft. ABSENT: distended, guarding, mass, organolmegaly, rebound, tenderness Rectal exam: PRESENT: deferred Extremities exam: PRESENT: full ROM. ABSENT: calf tenderness, clubbing, pedal edema Neurological exam: PRESENT: alert, awake, oriented to person, oriented to place, oriented to time, oriented to situation, CN II-XII grossly intact. ABSENT: motor sensory deficit Psychiatric exam: PRESENT: appropriate affect, normal mood. ABSENT: homicidal ideation, suicidal ideation Skin exam: PRESENT: dry, intact, warm. ABSENT: cyanosis, rash Results Laboratory Results: 07/18/19 06:12 07/18/19 06:12 07/18/19 07/18/19 06:12 06:12 WBC 13.0 H RBC 4.48 Hgb 13.7 Hct 40.7 MCV 91 MCH 30.5 MCHC 33.6 RDW 13.9 Plt Count 217 Seg Neutrophils % 88.5 H Sodium 130.8 L Potassium 4.0 Chloride 94 L Carbon Dioxide 23 Anion Gap 14 BUN 21 H Creatinine 0.90 Est GFR ( Amer) > 60 Glucose 120 H Calcium 9.7 07/16/19 04:20 Troponin I < 0.012 Impressions: Chest X-Ray 07/16/19 04:07 IMPRESSION: No significant change and no acute disease. Qualifiers - * PATIENT BEING DISCHARGED WITH ANY OF THE FOLLOWING DIAGNOSIS: No Acute Heart Failure - Is this a Heart Failure Patient?: No Plan Time Spent: Greater than 30 Minutes
[2019-07-18] MEDS: INSULIN REG, HUMAN 100 UNIT/ML 3 ML VIAL (PYX) SUBCUT SCH (08:00)
[2019-07-18] MEDS: METOPROLOL SUCCINATE 25 MG TAB.SR.24H PO SCH (09:25)
[2019-07-18] MEDS: LISINOPRIL 10 MG TABLET PO SCH (09:25)
[2019-07-18] MEDS: BUSPIRONE HCL 10 MG TABLET PO SCH (09:25)
[2019-07-18] MEDS: LEVOFLOXACIN 750 MG/D5W RTU 750 MG/150 ML RTUPB IV SCH (09:26)
[2019-07-18] MEDS: FLUTICASONE/VILANTEROL 200-25 MCG/DOSE IH SCH (09:27)
[2019-07-18 11:03] VITALS: BP 116/69
== END 2019-07-18 12:25 | disposition home or self-care (01) | DRG 189 ==
LOC: ER 03:50 → INTOOBSV 08:15 → EH 08:15 → 4N 10:20 → OBSVTOIN 07-18 11:24
PROVIDERS: ADMIT Internal Medicine; ATTEND Internal Medicine
DX: J96.21 Acute and chronic respiratory failure with hypoxia (principal); J44.1 Chronic obstructive pulmonary disease with (acute) exacerbation; F31.89 Other bipolar disorder; I50.9 Heart failure, unspecified; I25.10 Atherosclerotic heart disease of native coronary artery without angina pectoris; I11.0 Hypertensive heart disease with heart failure; R56.9 Unspecified convulsions; I25.2 Old myocardial infarction; F90.9 Attention-deficit hyperactivity disorder, unspecified type; F17.210 Nicotine dependence, cigarettes, uncomplicated; Z79.51 Long term (current) use of inhaled steroids; Z79.899 Other long term (current) drug therapy
CPT/HCPCS: 36415; 71045; 80048; 80053; 82803; 82962; 83036; 83735; 84100; 84484; 85025; 87040; 93005; 93010; 94640; 96365; 96366; 99285; J1815; J1956; J2930; J3475; J3490; J7620

== ENCOUNTER → 2019-11-04 | Outpatient (CLI) | payer MEDICAID ==
--- NOTE | 2019-11-04 10:37 | RADIOLOGY REPORT (SQ) ---
EXAM DESCRIPTION: VENOUS UNILATERAL LOWER COMPLETED DATE/TIME: 11/04/2019 9:05 am REASON FOR STUDY: R20.0 ANESTHESIA OF SKIN R20.0 ANESTHESIA OF SKIN COMPARISON: None. TECHNIQUE: Dynamic and static newman scale and color images acquired of the right leg venous system. S elected spectral images acquired with additional compression and augmentation maneuvers. The contrala teral common femoral vein and saphenofemoral junction were also imaged. Images stored on PACS. LIMITATIONS: None. FINDINGS: COMMON FEMORAL: Normal phasicity, compression and augmentation. No visualized echogenic ma terial on newman scale. No defects on color images. FEMORAL: Normal compression and augmentation. No visualized echogenic material on newman scale. No defe cts on color images. POPLITEAL: Normal compression, augmentation. No visualized echogenic material on newman scale. No defec ts on color images. CALF VESSELS: Normal compression, augmentation. No visualized echogenic material on newman scale. No de fects on color images. GSV and SSV: Normal compression, augmentation. No visualized echogenic material on newman scale. No def ects on color images. ANY DEEP VENOUS INSUFFICIENCY: Not evaluated. ANY EVIDENCE OF POPLITEAL CYST: No. OTHER: No other significant finding. CONTRALATERAL COMMON FEMORAL VEIN AND SAPHENOFEMORAL JUNCTION: Normal phasicity, compression and augmentation. No visualized echogenic material on newman scale. No de fects on color images. IMPRESSION: NO EVIDENCE DVT OR SVT IN THE RIGHT LEG. TECHNICAL DOCUMENTATION: JOB ID: [id number] [employer]- All Rights Reserved Reading location - IP/workstation name: [email or web address]
== END ==
LOC: SP 08:22
PROVIDERS: ATTEND Family Medicine
DX: R20.0 Anesthesia of skin (principal)
CPT/HCPCS: 93971

== ENCOUNTER 2019-12-04 03:23 | Emergency (ER) | payer MEDICAID ==
[2019-12-04] MEDS ORDERED: ACETAMINOPHEN 325 MG TABLET PO ONE (07:45)
--- NOTE | 2019-12-04 08:20 | ER Document Report ---
HPI - HPI Time Seen by Provider: 12/04/19 08:15 Pain Level: 5 - ROS Notes: 59-year-old male presents to the emergency room for complaints of pain to his right lower extremity that has been bothering him for the last 5 months, patient did have a venous Doppler done a month 30 days ago which was negative for DVT, patient states he walks roughly 3 to 4 miles a day. Patient presents because he would like pain medication since he is out of his oxycodone, he does have an appointment with pain management on Sunday which is 5 days away from now. Denies any new trauma, denies any leg swelling. Denies fevers, chills, chest pain,palpitations, shortness of breath, dyspnea, nausea, vomiting, diarrhea, abdominal pain, hematuria,blurred vision, double vision, loss of vision, speech changes, LH, dizziness, syncope, headaches, wheezing, ST, URI, neck pain, weakness, bowel or bladder dysfunction, saddle anesthesia, numbness or tingling in bilateral upper or lower extremities equally, muscle paralysis, weakness in bilateral upper or lower extremities equally or rash. - CONSTITUTIONAL Constitutional: DENIES: Fever, Chills - REPRODUCTIVE Reproductive: DENIES: : - MUSCULOSKELETAL Musculoskeletal: REPORTS: Extremity pain Past Medical History - General Information source: Patient - Social History Smoking Status: Former Smoker Frequency of alcohol use: None Drug Abuse: None Family History: CAD, Hyperlipidemia, Hypertension Patient has suicidal ideation: No Patient has homicidal ideation: No - Past Medical History Cardiac Medical History: Reports: Hx Congestive Heart Failure, Hx Coronary Artery Disease, Hx Heart Attack, Hx Hypertension Denies: Hx DVT, Hx Hypercholesterolemia, Hx Pulmonary Embolism Pulmonary Medical History: Reports: Hx Bronchitis, Hx COPD, Hx Respiratory Failure Neurological Medical History: Reports: Hx Seizures - Seizures when drinking states he has not drank in 16 years Endocrine Medical History: Denies: Hx Diabetes Mellitus Type 1, Hx Diabetes Mellitus Type 2, Hx Hyperthyroidism, Hx Hypothyroidism Renal/ Medical History: Denies: Hx Peritoneal Dialysis GI Medical History: Denies: Hx Cirrhosis, Hx Gastroesophageal Reflux Disease, Hx Hepatitis Musculoskeletal Medical History: Reports Hx Arthritis, Denies Hx Gout, Reports Hx Musculoskeletal Deformity - degenerative disc disease, Reports Hx Musculoskeletal Trauma Psychiatric Medical History: Reports: Hx Attention Deficit Hyperactivity Disorder, Hx Bipolar Disorder, Hx Depression - Major depressive, Hx Schizoaffective Disorder Traumatic Medical History: Reports: Hx Fractures, Hx Spine Fracture - States "back in 2 places" Infectious Medical History: Denies: Hx Hepatitis Past Surgical History: Reports: Hx Cardiac Catheterization, Other - Patient states he had left pleural effusion status post chest tube placemen - Immunizations Hx Diphtheria, Pertussis, Tetanus Vaccination: Yes Vertical Provider Document - CONSTITUTIONAL Agree With Documented VS: Yes Exam Limitations: No Limitations General Appearance: WD/WN Notes: PHYSICAL EXAMINATION:reviewed vital signs by RN GENERAL: Chronically ill, malnourished and in no acute distress. HEAD: Atraumatic, normocephalic. EYES: Pupils equal round and reactive to light, extraocular movements intact, sclera anicteric, conjunctiva are normal. ENT: Nares patent, oropharynx clear without exudates. Moist mucous membranes. NECK: Normal range of motion, supple without lymphadenopathy LUNGS: Breath sounds clear to auscultation bilaterally and equal. No wheezes rales or rhonchi. HEART: Regular rate and rhythm without murmurs ABDOMEN: Soft, nontender, nondistended abdomen. No guarding, no rebound. No masses appreciated. Musculoskeletal: Normal range of motion, no pitting or edema. No cyanosis. Right knee pain with palpation to genaral anterior and posterior aspect of knee with no noted swelling. negative mj's sign bilaterally. anterior and posterior drawer test negative. Dtr + 2 in BLE. Full motor and sensory function to BLE equally. No open wounds. No induration or drainage. Strength 5 out of 5 bilaterally equally. Ankle examination normal. Squeeze test negative. Hip examination normal. Pulses + 2 bilaterally and equally.negative squeeze bilaterally and equally. NEUROLOGICAL: Cranial nerves grossly intact. Normal speech, normal gait. Normal sensory, motor exams PSYCH: Normal mood, normal affect. SKIN: Warm, Dry, normal turgor, no rashes or lesions noted. - INFECTION CONTROL TRAVEL OUTSIDE OF THE [place] IN LAST 30 DAYS: No Course - Re-evaluation Re-evalutation: 12/04/19 14:22 Afebrile vital stable no distress. Nurse's notes reviewed. Discussed with patient that we cannot prescribe him controlled substances for his chronic pain management due to the fact that he is already established with pain management but he seeking another new one, 1 4 days, we are unable to bridge him. Patient is established with a primary care provider who also does partake in managing chronic pain, advised him to follow-up with this provider. Patient states that he is cannot concerning having a blood clot because he does walk 4 to 5 miles a day. He states he does not have a car therefore he has to walk. Patient not interested in any diagnostic imaging or venous studies at this time. Patient states he will take a shot of Toradol and then would like to leave so he can go see Dr. Aden who is a primary care provider that he is established with for possible pain management. I do not feel that patient has a DVT, acute fracture he likely does have arthritis in his bilateral knees. Patient states he takes the chronic pain medication for his back pain. Patient denies any bowel or bladder dysfunction after performing a Medical Screening Examination, I estimate there is LOW risk for OPEN FRACTURE, COMPARTMENT SYNDROME, DEEP VENOUS THROMBOSIS, ACUTE TENDON RUPTURE, or NEUROVASCULAR INJURY thus I consider the discharge disposition reasonable. I have reevaluated this patient multiple times and no significant life threatening changes are noted. The patient and I have discussed the diagnosis and risks, and we agree with discharging home to closely follow-up with their primary doctor or the referral orthopedist with the understanding that symptoms and presentations can change. We also discussed returning to the Emergency Department immediately if new or worsening symptoms occur. We have discussed the symptoms which are most concerning (e.g., changing or worsening pain, numbness, weakness) that necessitate immediate return - Vital Signs Vital signs: Temp Pulse Resp BP Pulse Ox 97.5 F 94 16 118/72 95 12/04/19 03:23 12/04/19 03:23 12/04/19 03:23 12/04/19 03:23 12/04/19 03:23 Discharge - Discharge Clinical Impression: Chronic pain of right lower extremity Chronic pain Qualifiers: Chronic pain type: other chronic pain Qualified Code(s): G89.29 - Other chronic pain Condition: Stable Disposition: HOME, SELF-CARE Instructions: Chronic Pain Control ([facility]), Elevation & Warmth ([facility]), Toradol Injection ([facility]) Additional Instructions: You are given 30 mg of Toradol IM today to help manage her chronic pain. Discussed with you that we cannot prescribe controlled substances for chronic pain management he would need to see your primary care provider or pain management. Advised to follow-up with her primary care provider today or tomorrow. Return immediately for any new or worsening symptoms. Follow up with primary care provider, call tomorrow to make followup appointment. Referrals: CHRISTINE ADEN, DO [Primary Care Provider] - Follow up tomorrow
[2019-12-04] MEDS ORDERED: KETOROLAC TROMETHAMINE 60 MG/2 ML SDV IM ONE (09:05)
[2019-12-04 09:36] VITALS: BP 131/75
== END 2019-12-04 09:35 | disposition home or self-care (01) ==
LOC: ER 03:23
DX: G89.29 Other chronic pain (principal); M79.604 Pain in right leg; M25.561 Pain in right knee; M54.9 Dorsalgia, unspecified; Z79.899 Other long term (current) drug therapy; I25.10 Atherosclerotic heart disease of native coronary artery without angina pectoris; I10 Essential (primary) hypertension; J44.9 Chronic obstructive pulmonary disease, unspecified; Z87.891 Personal history of nicotine dependence
CPT/HCPCS: 99283; 96374; J3490; J1885

== ENCOUNTER 2020-01-10 19:33 | Emergency (ER) | payer MEDICAID ==
[2020-01-10 21:01] LABS: ABSOLUTE EOSINOPHILS # (AUTO) 0.4 10^3/uL (0.0-0.6); ABSOLUTE LYMPHOCYTES (AUTO) 0.6 10^3/uL (0.5-4.7); ABSOLUTE MONOCYTES (AUTO) 0.3 10^3/uL (0.1-1.4); BASOPHILS % (AUTO) 0.2 % (0-2); TOTAL CELLS COUNTED % (AUTO) 100 %
--- NOTE | 2020-01-10 21:05 | RADIOLOGY REPORT (SQ) ---
EXAM DESCRIPTION: XR CHEST 1 VIEW COMPLETED DATE/TME: 01/10/2020 20:33 CLINICAL HISTORY: 59 years, Male, SOB COMPARISON: Multiple priors, most recent from 07/16/2019 NUMBER OF VIEWS: 2 TECHNIQUE: 2 frontal views of the chest were acquired LIMITATIONS: None. FINDINGS: Cardiac and mediastinal contours are stable. Lungs are clear. No pleural effusion or pneumothorax. IMPRESSION: No acute disease. copyright 2010 [employer]- All Rights Reserved
[2020-01-10 21:06] LABS: ABSOLUTE NEUT (AUTO) 4.2 10^3/uL (1.7-8.2); EOSINOPHILS % (AUTO) 7.7 % (0-6); HEMATOCRIT 38.2 % (37.9-51.0); HEMOGLOBIN 13.3 g/dL (13.5-17.0); LYMPHOCYTES % (AUTO) 10.4 % (13-45); MEAN CORPUSCULAR HEMOGLOBIN 31.5 pg (27.0-33.4); MEAN CORPUSCULAR HGB CONC 34.8 g/dL (32.0-36.0); MEAN CORPUSCULAR VOLUME 91 fl (80-97); PLATELET COUNT 231 10^3/uL (150-450); RED BLOOD COUNT 4.22 10^6/uL (4.35-5.55); RED CELL DISTRIBUTION WIDTH 14.3 % (11.5-14.0); SEGMENTED NEUTROPHILS % (AUTO) 76.7 % (42-78); WHITE BLOOD COUNT 5.5 10^3/uL (4.0-10.5)
[2020-01-10] MEDS ORDERED: IPRATROPIUM/ALBUTEROL 0.5-2.5 MG/3 ML AMPUL NEB ONE (21:12)
--- NOTE | 2020-01-10 21:13 | ER Document Report ---
ED General - General Chief Complaint: Breathing Difficulty Stated Complaint: DIFFICULTY BREATHING Time Seen by Provider: 01/10/20 21:04 Primary Care Provider: CHRISTINE TRAYLOR DO [Primary Care Provider] - Follow up as needed Information source: Patient TRAVEL OUTSIDE OF THE [place] IN LAST 30 DAYS: No - HPI Onset: Other - over the last several days Onset/Duration: Gradual Quality of pain: No pain Severity: Moderate Pain Level: Denies Associated symptoms: Productive cough - yellow sputum Exacerbated by: Coughing, Other - exertion Similar symptoms previously: No Recently seen / treated by doctor: No Notes: 59 year old male smoker with a history of COPD, CAD, CHF, HTN, Seizures, Bipolar, Depression, Schizoaffective Disorder here for shortness of breath, productive cough of yellow sputum, and chills for the last 2 days. The patient is not much of a historian and he does not seem to want to answer my questions but he denies fevers, sweats, chest pain, nausea, vomiting, sick contacts, recent travel. - Related Data Allergies/Adverse Reactions: No Known Allergies Allergy (Verified 01/10/20 19:53) Home Medications: Albuterol inhaler Past Medical History - General Information source: Patient - Social History Smoking Status: Current Some Day Smoker Chew tobacco use (# tins/day): No Frequency of alcohol use: Occasional Drug Abuse: None Lives with: Alone Family History: CAD, Hyperlipidemia, Hypertension Patient has suicidal ideation: No Patient has homicidal ideation: No - Past Medical History Cardiac Medical History: Reports: Hx Congestive Heart Failure, Hx Coronary Artery Disease, Hx Heart Attack, Hx Hypertension Denies: Hx DVT, Hx Hypercholesterolemia, Hx Pulmonary Embolism Pulmonary Medical History: Reports: Hx Bronchitis, Hx COPD, Hx Respiratory Failure Neurological Medical History: Reports: Hx Seizures - Seizures when drinking states he has not drank in 16 years Endocrine Medical History: Denies: Hx Diabetes Mellitus Type 1, Hx Diabetes Alisha litus Type 2, Hx Hyperthyroidism, Hx Hypothyroidism Renal/ Medical History: Denies: Hx Peritoneal Dialysis GI Medical History: Denies: Hx Cirrhosis, Hx Gastroesophageal Reflux Disease, Hx Hepatitis Musculoskeletal Medical History: Reports Hx Arthritis, Denies Hx Gout, Reports Hx Musculoskeletal Deformity - degenerative disc disease, Reports Hx Musculoskeletal Trauma Psychiatric Medical History: Reports: Hx Attention Deficit Hyperactivity Disorder, Hx Bipolar Disorder, Hx Depression - Major depressive, Hx Schizoaffective Disorder Traumatic Medical History: Reports: Hx Fractures, Hx Spine Fracture - States "back in 2 places" Infectious Medical History: Denies: Hx Hepatitis Past Surgical History: Reports: Hx Cardiac Catheterization, Other - Patient states he had left pleural effusion status post chest tube placemen - Immunizations Hx Diphtheria, Pertussis, Tetanus Vaccination: Yes Review of Systems - Review of Systems Constitutional: Chills EENT: No symptoms reported Cardiovascular: No symptoms reported Respiratory: Cough, Short of breath, Sputum - yellow Gastrointestinal: No symptoms reported Genitourinary: No symptoms reported Male Genitourinary: No symptoms reported Musculoskeletal: No symptoms reported Skin: No symptoms reported Hematologic/Lymphatic: No symptoms reported Neurological/Psychological: No symptoms reported -: Yes All other systems reviewed and negative Physical Exam - Vital signs Vitals: Pulse Ox 96 01/10/20 20:33 - Notes Notes: GENERAL: Well-appearing, well-nourished and in no acute distress. HEAD: Atraumatic, normocephalic. EYES: Pupils equal round and reactive to light, extraocular movements intact, sclera anicteric, conjunctiva are normal. ENT: Nares patent, oropharynx clear without exudates. Moist mucous membranes. NECK: Normal range of motion, supple without lymphadenopathy or JVD. LUNGS: Mild end expiratory wheezing bilaterally, no rales or rhonchi. HEART: Regular rate and rhythm without murmurs, rubs or gallops. ABDOMEN: Soft, nontender, normoactive bowel sounds. No guarding, no rebound. No masses appreciated. EXTREMITIES: Normal range of motion, no pitting or edema. No clubbing or cyanosis. NEUROLOGICAL: Cranial nerves II through XII grossly intact. Normal speech, normal gait. PSYCH: Normal mood, normal affect. SKIN: Warm, Dry, normal turgor, no rashes or lesions noted. Course - Re-evaluation Re-evalutation: 01/10/20 21:20 The patient is here in the ER for shortness of breath. He is in no distress in the ER sating fine on room air. The patient was given a neb and solumedrol by Junior PHILLIPS. Patient was given another neb here in the ER. Chest Xray shows no infiltrates and labs and EKG unremarkable. Patient may have had a viral illness triggering his COPD today. 01/10/20 22:30 The patient is feeling better after a neb in the ER. Will DC patient with script for albuterol and a steroid burst. Patient told to follow up with his PCP. - Vital Signs Vital signs: Temp Pulse Resp BP Pulse Ox 96 01/10/20 20:33 - Laboratory Result Diagrams: 01/10/20 20:50 01/10/20 20:50 Laboratory results interpreted by me: 01/10/20 01/10/20 01/10/20 20:50 20:50 20:50 RBC 4.22 L Hgb 13.3 L RDW 14.3 H Lymph % (Auto) 10.4 L Eos % (Auto) 7.7 H ABG pO2 Glucose 118 H NT-Pro-B Natriuret Pep 204 H 01/10/20 21:30 RBC Hgb RDW Lymph % (Auto) Eos % (Auto) ABG pO2 78.2 L Glucose NT-Pro-B Natriuret Pep - Diagnostic Test Radiology reviewed: Image reviewed, Reports reviewed - EKG Interpretation by Me EKG shows normal: Sinus rhythm, [place], Intervals, QRS Complexes Rate: Normal Rhythm: NSR When compared to previous EKG there are: No significant change Additional EKG results interpreted by me: 01/10/20 21:19 T wave inversions in aVR, aVL, V1 Discharge - Discharge Clinical Impression: Shortness of breath COPD (chronic obstructive pulmonary disease) Qualifiers: COPD type: unspecified COPD Qualified Code(s): J44.9 - Chronic obstructive pulmonary disease, unspecified Condition: Stable Disposition: HOME, SELF-CARE Instructions: Chronic Obstructive Lung Disease ([facility]) Additional Instructions: Use Albuterol as needed for wheezing and shortness of breath. Follow up with your primary care doctor. Prescriptions: Prednisone [Deltasone 20 mg Tablet] 3 tab PO DAILY 4 Days #12 tablet Albuterol Sulfate [Proair HFA Inhalation Aerosol 8.5 gm MDI] 2 puff IH Q4H PRN #1 [id number] PRN Reason: Referrals: CHRISTINE TRAYLOR DO [Primary Care Provider] - Follow up as needed
[2020-01-10 21:22] LABS: ALBUMIN 4.1 g/dL (3.5-5.0); ALKALINE PHOSPHATASE 70 U/L (38-126); ANION GAP 6 (5-19); ASPARTATE AMINO TRANSFERASE 22 U/L (17-59); BILIRUBIN,DIRECT 0.2 mg/dL (0.0-0.4); BILIRUBIN,TOTAL 0.5 mg/dL (0.2-1.3); BLOOD UREA NITROGEN 10 mg/dL (7-20); CALCIUM 9.3 mg/dL (8.4-10.2); CARBON DIOXIDE 28 mmol/L (22-30); CHLORIDE 103 mmol/L (98-107); GLUCOSE 118 mg/dL (75-110); TOTAL PROTEIN 6.8 g/dL (6.3-8.2)
--- NOTE | 2020-01-10 21:29 | EKG REPORT ---
SEVERITY:- BORDERLINE ECG - SINUS RHYTHM BORDERLINE R WAVE PROGRESSION, ANTERIOR LEADS : Confirmed by: Blessing Serrano MD 10-Jan-2020 21:28:54
[2020-01-10 21:36] LABS: NT PRO BNP 204 pg/mL (<125)
[2020-01-10 21:38] LABS: TROPONIN I < 0.012 ng/mL
[2020-01-10 21:49] LABS: ARTERIAL BLOOD BASE EXCESS -0.6 mmol/L; ARTERIAL BLOOD H2CO3 1.12 mmol/L (1.05-1.35); ARTERIAL BLOOD HCO3 23.5 mmol/L (20-24); ARTERIAL BLOOD O2 SATURATION 95.8 % (94-98); ARTERIAL BLOOD PCO2 37.2 mmHg (35-45); ARTERIAL BLOOD PH 7.42 (7.35-7.45); ARTERIAL BLOOD PO2 78.2 mmHg (80-100); ARTERIAL BLOOD TOTAL CO2 24.7 mmol/L (23-27)
[2020-01-10 21:56] LABS: ARTERIAL BLOOD FIO2 2L
[2020-01-10 23:07] VITALS: BP 146/94
== END 2020-01-10 23:08 | disposition home or self-care (01) ==
LOC: ER 19:33
DX: J44.9 Chronic obstructive pulmonary disease, unspecified (principal); R06.02 Shortness of breath; R05 Cough; R68.83 Chills (without fever); I25.10 Atherosclerotic heart disease of native coronary artery without angina pectoris; I10 Essential (primary) hypertension; F17.200 Nicotine dependence, unspecified, uncomplicated; Z79.899 Other long term (current) drug therapy
CPT/HCPCS: 93005; 94640; 99285; 36415; 82803; 85025; 80053; 84484; 83880; 71045; 93010; J7620

== ENCOUNTER 2020-01-23 13:58 | Emergency (ER) | payer MEDICAID ==
--- NOTE | 2020-01-23 14:38 | ER Document Report ---
ED General - General Chief Complaint: Breathing Difficulty Stated Complaint: DIFFICULTY BREATHING Primary Care Provider: CHRISTINE TRAYLOR DO [Primary Care Provider] - Follow up as needed Mode of Arrival: Medic Information source: Patient, [facility] Records Notes: 59-year-old male with COPD presents via EMS with complaint of shortness of breath. Patient states that he used to be on home oxygen but it was discontinued approximately 2 months ago after he was told that he no longer needed it. He states that he became short of breath yesterday and tried to see his primary care physician but was unable to do so. Patient did not receive any breathing treatments by EMS prior to arrival and upon my exam he is 100% on room air. Patient states immediately "I am ready to go home". Patient states that he has breathing machine at home. Denies any fever, chills, chest pain. Has had a new productive cough. Continues to use tobacco. TRAVEL OUTSIDE OF THE [place] IN LAST 30 DAYS: No - HPI Onset: Yesterday Onset/Duration: Gradual Quality of pain: No pain Severity: None Associated symptoms: Productive cough, Shortness of breath. denies: Chest pain, Fever Exacerbated by: Denies Relieved by: Denies Similar symptoms previously: Yes Recently seen / treated by doctor: Yes - Related Data Allergies/Adverse Reactions: No Known Allergies Allergy (Verified 01/10/20 19:53) Past Medical History - General Information source: Patient, Emergency Med Personnel, [facility] Records - Social History Smoking Status: Current Every Day Smoker Cigarette use (# per day): Yes - 15 Smoking Education Provided: Yes - Smoking cessation counseling was provided for 4 minutes at the bedside Frequency of alcohol use: None Drug Abuse: None Lives with: Family Family History: CAD, Hyperlipidemia, Hypertension - Past Medical History Cardiac Medical History: Reports: Hx Congestive Heart Failure, Hx Coronary Artery Disease, Hx Heart Attack, Hx Hypertension Denies: Hx DVT, Hx Hypercholesterolemia, Hx Pulmonary Embolism Pulmonary Medical History: Reports: Hx Bronchitis, Hx COPD, Hx Respiratory Failure Neurological Medical History: Reports: Hx Seizures - Seizures when drinking states he has not drank in 16 years Endocrine Medical History: Denies: Hx Diabetes Mellitus Type 1, Hx Diabetes Mellitus Type 2, Hx Hyperthyroidism, Hx Hypothyroidism Renal/ Medical History: Denies: Hx Peritoneal Dialysis GI Medical History: Denies: Hx Cirrhosis, Hx Gastroesophageal Reflux Disease, Hx Hepatitis Musculoskeletal Medical History: Reports Hx Arthritis, Denies Hx Gout, Reports Hx Musculoskeletal Deformity - degenerative disc disease, Reports Hx Musculoskeletal Trauma Psychiatric Medical History: Reports: Hx Attention Deficit Hyperactivity Disorder, Hx Bipolar Disorder, Hx Depression - Major depressive, Hx Schizoaffective Disorder Traumatic Medical History: Reports: Hx Fractures, Hx Spine Fracture - States "back in 2 places" Infectious Medical History: Denies: Hx Hepatitis Past Surgical History: Reports: Hx Cardiac Catheterization, Other - Patient states he had left pleural effusion status post chest tube placemen - Immunizations Hx Diphtheria, Pertussis, Tetanus Vaccination: Yes Review of Systems - Review of Systems Notes: REVIEW OF SYSTEMS: CONSTITUTIONAL : Denies fever, chills, or sweats. Denies recent illness. Denies weight loss, recent hospitalizations. EENT: Denies visual changes, eye pain. Denies sore throat, oral lesions, difficulty swallowing. CARDIOVASCULAR: Denies chest pain. Denies palpitations. Denies lower extremity edema. RESPIRATORY: + cough. + shortness of breath, wheezing. GASTROINTESTINAL: Denies abdominal pain or distention. Denies nausea, vomiting, or diarrhea. Denies blood in vomitus, stools, or per rectum. Denies black, tarry stools. Denies constipation. GENITOURINARY: Denies difficulty urinating, painful urination, frequency, blood in urine, testicular pain or penile discharge. MUSCULOSKELETAL: Denies back or neck pain or stiffness. Denies joint pain or swelling. SKIN: Denies rash, lesions or sores. HEMATOLOGIC : Denies easy bruising or bleeding. LYMPHATIC: Denies swollen glands. NEUROLOGICAL: Denies confusion or altered mental status. Denies loss of consciousness. Denies dizziness or lightheadedness. Denies headache. Denies weakness or paralysis. Denies problems difficulty with ambulation, slurred speech. Denies sensory loss, numbness, or tingling. Denies seizures. PSYCHIATRIC: Denies anxiety or stress. Denies depression, suicidal ideation, or Physical Exam - Notes Notes: PHYSICAL EXAMINATION: GENERAL: Well-appearing, well-nourished and in no acute distress. HEAD: Atraumatic, normocephalic. EYES: Pupils equal round and reactive to light, extraocular movements intact, sclera anicteric, conjunctiva are normal. ENT: Nares patent, oropharynx clear without exudates. Moist mucous membranes. NECK: Normal range of motion, supple without lymphadenopathy LUNGS: No increased work of breathing, no accessory muscle use. Mild expiratory wheezing. HEART: Regular rate and rhythm without murmurs ABDOMEN: Soft, nontender, nondistended abdomen. No guarding, no rebound. No masses appreciated. Musculoskeletal: Normal range of motion, no pitting or edema. No cyanosis. NEUROLOGICAL: Cranial nerves grossly intact. Normal speech, normal gait. Normal sensory, motor exams PSYCH: Normal mood, normal affect. SKIN: Warm, Dry, normal turgor, no rashes or lesions noted. Course - Re-evaluation Re-evalutation: 01/23/20 14:49 Patient presents with a mild exacerbation of their baseline COPD. Mild wheezing at time of presentation but vitals do not show significant hypoxemia or tachypnea. No retractions. Patient did clinically improve after receiving nebulizers here in the emergency department. Chest x-ray without evidence of an acute pneumonia. Laboratories do not show acute kidney injury or significant leukocytosis. Patient able to ambulate without any respiratory distress. Based on patient's overall reassuring assessment, I believe they are stable for outpatient management with steroids and oral antibiotics. Patient has nebulizers at home. I do not suspect an acute alternative pathology at this time based on history and exam including acute pulmonary embolus, ACS, pneumothorax, or aortic dissection. At this time will discharge with return precautions and follow-up recommendations. Verbal discharge instructions given a the bedside and opportunity for questions given. Medication warnings reviewed. Patient is in agreement with this plan and has verbalized understanding of return precautions and the need for primary care follow-up in the next 24-72 hours. Discharge - Discharge Clinical Impression: COPD (chronic obstructive pulmonary disease) Qualifiers: COPD type: unspecified COPD Qualified Code(s): J44.9 - Chronic obstructive pulmonary disease, unspecified Condition: Good Disposition: HOME, SELF-CARE Instructions: Chronic Obstructive Lung Disease ([facility]) Additional Instructions: You were seen for a COPD exacerbation. Your symptoms improved with treatment here in the emergency department. However, it is very important that you return to the emergency department immediately if you began to have worsening difficulty breathing that does not respond to your normal home nebulizers. You are also being sent home on a five-day course of steroids that you should start taking tomorrow. Please also take the antibiotics as prescribed. Please also follow closely with your primary care physician. You should eturn to emergency department if you develop fever greater than 101, persistent cough, persistent vomiting, pass out, or any other symptoms that are concerning to you. Prescriptions: Prednisone [Deltasone 20 mg Tablet] 3 tab PO DAILY 5 Days #15 tablet Doxycycline Monohydrate 100 mg PO BID #14 tablet Forms: Smoking Cessation Education Referrals: CHRISTINE TRAYLOR DO [Primary Care Provider] - Follow up as needed
[2020-01-23 15:02] VITALS: BP 147/86
== END 2020-01-23 15:21 | disposition home or self-care (01) ==
LOC: ER 13:58
DX: J44.9 Chronic obstructive pulmonary disease, unspecified (principal); R06.02 Shortness of breath; R05 Cough; F17.210 Nicotine dependence, cigarettes, uncomplicated; I50.9 Heart failure, unspecified; I25.10 Atherosclerotic heart disease of native coronary artery without angina pectoris; I25.2 Old myocardial infarction; I11.0 Hypertensive heart disease with heart failure
CPT/HCPCS: 99283; 99406

== ENCOUNTER 2020-02-09 20:42 | Emergency (ER) | payer MEDICAID ==
--- NOTE | 2020-02-09 21:07 | ER Document Report ---
ED General - General Chief Complaint: Cough Stated Complaint: COUGH Time Seen by Provider: 02/09/20 20:49 Primary Care Provider: CHRISTINE ADEN DO [Primary Care Provider] - Follow up tomorrow Mode of Arrival: Ambulatory Information source: Patient Notes: 59-year-old male with history of COPD presents emergency department with complaints of shortness of breath reports his fingertips are turning blue. Also complains of severe muscle cramps. Denies fever vomiting diarrhea. He denies chest pain. Reports he was on home oxygen for a while but his provider said he did not need it anymore so they took him off the home oxygen. He then reports that after a recent visit his provider Dr. Aden was supposed to have placed back on home oxygen again but it has never been delivered to his home. Patient reports he is also out of his inhaler. Reports the pharmacy does not have any more inhalers. TRAVEL OUTSIDE OF THE [place] IN LAST 30 DAYS: No - HPI Onset: Other Onset/Duration: Persistent Quality of pain: Cramping Associated symptoms: denies: Chest pain Exacerbated by: Denies Relieved by: Denies Similar symptoms previously: No Recently seen / treated by doctor: No - Related Data Allergies/Adverse Reactions: No Known Allergies Allergy (Verified 02/09/20 21:26) Past Medical History - General Information source: Patient - Social History Smoking Status: Current Every Day Smoker Cigarette use (# per day): Yes Frequency of alcohol use: None Drug Abuse: None Lives with: Friend - Ex-girlfriend Family History: CAD, Hyperlipidemia, Hypertension - Past Medical History Cardiac Medical History: Reports: Hx Congestive Heart Failure, Hx Coronary Artery Disease, Hx Heart Attack, Hx Hypertension Denies: Hx DVT, Hx Hypercholesterolemia, Hx Pulmonary Embolism Pulmonary Medical History: Reports: Hx Bronchitis, Hx COPD, Hx Respiratory Failure Neurological Medical History: Reports: Hx Seizures - Seizures when drinking states he has not drank in 16 years Endocrine Medical History: Denies: Hx Diabetes Mellitus Type 1, Hx Diabetes Mellitus Type 2, Hx Hyperthyroidism, Hx Hypothyroidism Renal/ Medical History: Denies: Hx Peritoneal Dialysis GI Medical History: Denies: Hx Cirrhosis, Hx Gastroesophageal Reflux Disease, Hx Hepatitis Musculoskeletal Medical History: Reports Hx Arthritis, Denies Hx Gout, Reports Hx Musculoskeletal Deformity - degenerative disc disease, Reports Hx Musculoskeletal Trauma Psychiatric Medical History: Reports: Hx Attention Deficit Hyperactivity Disorder, Hx Bipolar Disorder, Hx Depression - Major depressive, Hx Schizoaffective Disorder Traumatic Medical History: Reports: Hx Fractures, Hx Spine Fracture - States "back in 2 places" Infectious Medical History: Denies: Hx Hepatitis Past Surgical History: Reports: Hx Cardiac Catheterization, Other - Patient states he had left pleural effusion status post chest tube placemen - Immunizations Hx Diphtheria, Pertussis, Tetanus Vaccination: Yes Review of Systems - Review of Systems Notes: Review HPI for review of systems., All other systems negative Physical Exam - Vital signs Vitals: Temp Pulse BP Pulse Ox 97.3 F 75 131/79 H 100 02/09/20 23:14 02/09/20 23:14 02/09/20 23:14 02/09/20 23:14 - General General appearance: Alert In distress: None - HEENT Head: Normocephalic Eyes: Normal Conjunctiva: Normal Extraocular movements intact: Yes Ears: Normal External canal: Normal Tympanic membrane: Normal Mucous membranes: Normal, Moist Pharynx: Normal Neck: Normal, Supple. No: Lymphadenopathy - Respiratory Respiratory status: No respiratory distress Chest status: Nontender Breath sounds: Normal Chest palpation: Normal - Cardiovascular Rhythm: Regular Heart sounds: Normal auscultation Murmur: No - Abdominal Inspection: Normal Distension: No distension - Extremities General upper extremity: Normal ROM General lower extremity: Normal ROM - Neurological Neuro grossly intact: Yes Cognition: Normal Orientation: AAOx4 [place] Coma Scale Eye Opening: Spontaneous [place] Coma Scale Verbal: Oriented [place] Coma Scale Motor: Obeys Commands [place] Coma Scale Total: 15 Speech: Normal - Psychological Associated symptoms: Normal affect, Normal mood - Skin Skin Temperature: Warm Skin Moisture: Dry Skin Color: Normal - No cyanosis noted. negative: Cyanotic - fingers warm, pink , cap refill <3 sec. Skin irregularity: negative: Erythema Course - Re-evaluation Re-evalutation: 02/09/20 21:09 59-year-old male with history of cardiac disease COPD presents with reports of COPD and fingertips turning blue. He reports the blue fingertips come and go. Denies chest pain, denies SOB. Denies fever vomiting diarrhea. Has history of home oxygen but is not currently utilizing home oxygen. Patient reports he has been using his Proair inhaler all week and is out of it now. Also reports the pharmacy is out of Proair and inhalers 02/09/20 22:57 cbc, abg unremarkable. hyponatremia noted at 131.7 which may be the cause of his muscle cramping. Pt was instructed on this. He reports he is taking two meds for his HTN, denies diuretic, denies vomiting and diarrhea. Reports he doesn't drink much water but drinks lots of pepsi. He was instructed on his hyponatremia and the inportance of fu with dr hernandez within 24 hours for recheck. No cyanosis noted. finger tips pink, cap refill <3 sec. warm. Respiratory rate even unlabored no retractions no wheezing. Patient was instructed on all results. Instructed to quit smoking cigarettes and marijuana. He was instructed to monitor symptoms follow-up with his primary care provider within 24 hours for recheck of sodium. He verbalized understanding to all instructions. Chest X-Ray 02/09/20 21:03 IMPRESSION: No interval change in the appearance of the chest Pulmonary hyperinflation Question left effusion versus scarring Laboratory 02/09/20 02/09/20 02/09/20 21:33 21:33 21:33 WBC 6.8 RBC 4.24 L Hgb 13.1 L Hct 38.5 MCV 91 MCH 31.0 MCHC 34.2 RDW 14.6 H Plt Count 234 Lymph % (Auto) 19.5 [place] % (Auto) 8.2 Eos % (Auto) 3.4 Baso % (Auto) 0.8 Absolute Neuts (auto) 4.6 Absolute Lymphs (auto) 1.3 Absolute Monos (auto) 0.6 Absolute Eos (auto) 0.2 Absolute Basos (auto) 0.1 Seg Neutrophils % 68.1 Carbonic Acid HCO3/H2CO3 Ratio ABG pH ABG pCO2 ABG pO2 ABG HCO3 ABG Total CO2 ABG O2 Saturation ABG Base Excess FiO2 Sodium 131.7 L Potassium 5.1 H Chloride 96 L Carbon Dioxide 27 Anion Gap 9 BUN 19 Creatinine 0.92 Est GFR ( Amer) > 60 Est GFR (MDRD) Non-Af > 60 Glucose 100 Calcium 9.5 Total Bilirubin 0.4 Direct Bilirubin 0.2 Neonat Total Bilirubin Not Reportable Neonat Direct Bilirubin Not Reportable Neonat Indirect Bili Not Reportable AST 23 ALT 24 Alkaline Phosphatase 63 Troponin I < 0.012 NT-Pro-B Natriuret Pep 92 Total Protein 7.0 Albumin 4.3 Urine Color Urine Appearance Urine pH Ur Specific [place] Urine Protein Urine Glucose (UA) Urine Ketones Urine Blood Urine Nitrite Urine Bilirubin Urine Urobilinogen Ur Leukocyte Esterase Urine WBC (Auto) Urine RBC (Auto) Urine Bacteria (Auto) Squamous Epi Cells Auto Urine Mucus (Auto) Urine Ascorbic Acid Urine Opiates Screen Urine Methadone Screen Ur Barbiturates Screen Ur Phencyclidine Scrn Ur Amphetamines Screen U Benzodiazepines Scrn Urine Cocaine Screen U Marijuana (THC) Screen 02/09/20 02/09/20 02/09/20 21:33 21:33 22:31 WBC RBC Hgb Hct MCV MCH MCHC RDW Plt Count Lymph % (Auto) [place] % (Auto) Eos % (Auto) Baso % (Auto) Absolute Neuts (auto) Absolute Lymphs (auto) Absolute Monos (auto) Absolute Eos (auto) Absolute Basos (auto) Seg Neutrophils % Carbonic Acid 1.21 HCO3/H2CO3 Ratio 20:1 ABG pH 7.42 ABG pCO2 40.2 ABG pO2 83.7 ABG HCO3 25.4 H ABG Total CO2 26.6 ABG O2 Saturation 96.4 ABG Base Excess 0.9 FiO2 ROOM AIR Sodium Potassium Chloride Carbon Dioxide Anion Gap BUN Creatinine Est GFR ( Amer) Est GFR (MDRD) Non-Af Glucose Calcium Total Bilirubin Direct Bilirubin Neonat Total Bilirubin Neonat Direct Bilirubin Neonat Indirect Bili AST ALT Alkaline Phosphatase Troponin I NT-Pro-B Natriuret Pep Total Protein Albumin Urine Color YELLOW Urine Appearance SLIGHTLY-CLOUDY Urine pH 5.0 Ur Specific [place] 1.006 Urine Protein NEGATIVE Urine Glucose (UA) NEGATIVE Urine Ketones NEGATIVE Urine Blood NEGATIVE Urine Nitrite NEGATIVE Urine Bilirubin NEGATIVE Urine Urobilinogen NEGATIVE Ur Leukocyte Esterase NEGATIVE Urine WBC (Auto) 4 Urine RBC (Auto) 5 Urine Bacteria (Auto) 1+ Squamous Epi Cells Auto <1 Urine Mucus (Auto) FEW Urine Ascorbic Acid NEGATIVE Urine Opiates Screen NEGATIVE Urine Methadone Screen NEGATIVE Ur Barbiturates Screen NEGATIVE Ur Phencyclidine Scrn NEGATIVE Ur Amphetamines Screen UNCONFIRMED POSITIVE U Benzodiazepines Scrn NEGATIVE Urine Cocaine Screen NEGATIVE U Marijuana (THC) Screen UNCONFIRMED POSITIVE - Vital Signs Vital signs: Temp Pulse Resp BP Pulse Ox 97.3 F 75 131/79 H 100 02/09/20 23:14 02/09/20 23:14 02/09/20 23:14 02/09/20 23:14 - Laboratory Result Diagrams: 02/09/20 21:33 02/09/20 21:33 Laboratory results interpreted by me: 02/09/20 02/09/20 02/09/20 21:33 21:33 22:31 RBC 4.24 L Hgb 13.1 L RDW 14.6 H ABG HCO3 25.4 H Sodium 131.7 L Potassium 5.1 H Chloride 96 L - Diagnostic Test Radiology reviewed: Image reviewed, Reports reviewed - EKG Interpretation by Me EKG shows normal: Sinus rhythm Rate: Normal Rhythm: NSR Additional EKG results interpreted by me: 02/09/20 23:[address] elevation no T wave inversion Discharge - Discharge Clinical Impression: Hyponatremia, Muscle cramping Condition: Stable Disposition: HOME, SELF-CARE Instructions: Hyponatremia ([facility]) Additional Instructions: *You have been evaluated for muscle cramps, hyponatremia * Your sodium level was low. This may be causing your muscle cramps. Please fo llow up with Dr Hernandez within 24 hours for a recheck of your sodium level *Quit smoking cigarettes and marijuana *Wash your hands, fdc in place, practice social distancing *Return to ED for worsening condition, changes, needs, difficulty breathing, concerns Forms: Smoking Cessation Education Referrals: CHRISTINE ADEN DO [Primary Care Provider] - Follow up tomorrow
[2020-02-09 21:47] LABS: ABSOLUTE BASOPHILS # (AUTO) 0.1 10^3/uL (0.0-0.2); ABSOLUTE EOSINOPHILS # (AUTO) 0.2 10^3/uL (0.0-0.6); ABSOLUTE LYMPHOCYTES (AUTO) 1.3 10^3/uL (0.5-4.7); ABSOLUTE MONOCYTES (AUTO) 0.6 10^3/uL (0.1-1.4); ABSOLUTE NEUT (AUTO) 4.6 10^3/uL (1.7-8.2); BASOPHILS % (AUTO) 0.8 % (0-2); EOSINOPHILS % (AUTO) 3.4 % (0-6); HEMATOCRIT 38.5 % (37.9-51.0); HEMOGLOBIN 13.1 g/dL (13.5-17.0); LYMPHOCYTES % (AUTO) 19.5 % (13-45); MEAN CORPUSCULAR HGB CONC 34.2 g/dL (32.0-36.0); MEAN CORPUSCULAR VOLUME 91 fl (80-97); MONOCYTES % (AUTO) 8.2 % (3-13); PLATELET COUNT 234 10^3/uL (150-450); RED BLOOD COUNT 4.24 10^6/uL (4.35-5.55); RED CELL DISTRIBUTION WIDTH 14.6 % (11.5-14.0); SEGMENTED NEUTROPHILS % (AUTO) 68.1 % (42-78); TOTAL CELLS COUNTED % (AUTO) 100 %; WHITE BLOOD COUNT 6.8 10^3/uL (4.0-10.5)
[2020-02-09 22:02] LABS: APPEARANCE,URINE SLIGHTLY-CLOUDY; BILIRUBIN,URINE NEGATIVE (NEGATIVE); COLOR,URINE YELLOW; GLUCOSE, URINE NEGATIVE (NEGATIVE); KETONES,URINE NEGATIVE (NEGATIVE); LEUKOCYTE ESTERASE,URINE NEGATIVE (NEGATIVE); NITRITE,URINE NEGATIVE (NEGATIVE); PROTEIN,URINE NEGATIVE (NEGATIVE); URINE SPECIFIC GRAVITY 1.006; UROBILINOGEN,URINE NEGATIVE mg/dL (<2.0)
[2020-02-09 22:08] LABS: ALBUMIN 4.3 g/dL (3.5-5.0); ALKALINE PHOSPHATASE 63 U/L (38-126); ANION GAP 9 (5-19); ASPARTATE AMINO TRANSFERASE 23 U/L (17-59); BILIRUBIN,DIRECT 0.2 mg/dL (0.0-0.4); BILIRUBIN,TOTAL 0.4 mg/dL (0.2-1.3); BLOOD UREA NITROGEN 19 mg/dL (7-20); CALCIUM 9.5 mg/dL (8.4-10.2); CARBON DIOXIDE 27 mmol/L (22-30); CHLORIDE 96 mmol/L (98-107); GLUCOSE 100 mg/dL (75-110); POTASSIUM 5.1 mmol/L (3.6-5.0)
--- NOTE | 2020-02-09 22:12 | RADIOLOGY REPORT (SQ) ---
EXAM DESCRIPTION: XR CHEST 1 VIEW COMPLETED DATE/TME: 02/09/2020 21:03 CLINICAL HISTORY: 59 years Male sob COMPARISON: 01/10/2020. FINDINGS: The cardiomediastinal silhouette appears unremarkable. No consolidating infiltrates. Blunting of the left costophrenic angle which is unchanged and may be related to fluid or scarring. No interval change. IMPRESSION: No interval change in the appearance of the chest Pulmonary hyperinflation Question left effusion versus scarring
[2020-02-09 22:13] LABS: URINE BARBITURATES SCREEN NEGATIVE; URINE BENZODIAZEPINES SCREEN NEGATIVE; URINE COCAINE SCREEN NEGATIVE; URINE METHADONE SCREEN NEGATIVE; URINE PHENCYCLIDINE SCREEN NEGATIVE
[2020-02-09 22:20] LABS: URINE AMPHETAMINES SCREEN UNCONFIRMED POSITIVE; URINE MARIJUANA (THC) SCREEN UNCONFIRMED POSITIVE
[2020-02-09 22:27] LABS: NT PRO BNP 92 pg/mL (<125)
[2020-02-09 22:28] LABS: TROPONIN I < 0.012 ng/mL
[2020-02-09 22:53] LABS: ARTERIAL BLOOD BASE EXCESS 0.9 mmol/L; ARTERIAL BLOOD H2CO3 1.21 mmol/L (1.05-1.35); ARTERIAL BLOOD HCO3 25.4 mmol/L (20-24); ARTERIAL BLOOD O2 SATURATION 96.4 % (94-98); ARTERIAL BLOOD PCO2 40.2 mmHg (35-45); ARTERIAL BLOOD PH 7.42 (7.35-7.45); ARTERIAL BLOOD PO2 83.7 mmHg (80-100); ARTERIAL BLOOD TOTAL CO2 26.6 mmol/L (23-27)
[2020-02-09 22:54] LABS: ARTERIAL BLOOD FIO2 ROOM AIR
[2020-02-09 23:22] VITALS: BP 131/79
--- NOTE | 2020-02-10 09:24 | EKG REPORT ---
SEVERITY:- NORMAL ECG - SINUS RHYTHM : Confirmed by: Ivan Oseguera 10-Feb-2020 09:23:41
== END 2020-02-09 23:22 | disposition home or self-care (01) ==
LOC: ER 20:42
DX: E87.1 Hypo-osmolality and hyponatremia (principal); R25.2 Cramp and spasm; R05 Cough; J44.9 Chronic obstructive pulmonary disease, unspecified; F17.210 Nicotine dependence, cigarettes, uncomplicated; I25.2 Old myocardial infarction; I50.9 Heart failure, unspecified; I11.0 Hypertensive heart disease with heart failure
CPT/HCPCS: 36415; 36600; 71045; 80053; 80307; 81001; 82803; 83880; 84484; 85025; 93005; 93010; 99284

== ENCOUNTER 2020-03-13 11:45 | Emergency (ER) | payer MEDICAID ==
[2020-03-13 12:31] LABS: ABSOLUTE EOSINOPHILS # (AUTO) 0.4 10^3/uL (0.0-0.6); ABSOLUTE LYMPHOCYTES (AUTO) 1.3 10^3/uL (0.5-4.7); ABSOLUTE MONOCYTES (AUTO) 0.5 10^3/uL (0.1-1.4); ABSOLUTE NEUT (AUTO) 3.6 10^3/uL (1.7-8.2); BASOPHILS % (AUTO) 0.1 % (0-2); EOSINOPHILS % (AUTO) 7.2 % (0-6); HEMATOCRIT 36.2 % (37.9-51.0); HEMOGLOBIN 12.3 g/dL (13.5-17.0); LYMPHOCYTES % (AUTO) 22.1 % (13-45); MEAN CORPUSCULAR HEMOGLOBIN 30.5 pg (27.0-33.4); MEAN CORPUSCULAR HGB CONC 33.9 g/dL (32.0-36.0); MEAN CORPUSCULAR VOLUME 90 fl (80-97); MONOCYTES % (AUTO) 8.2 % (3-13); PLATELET COUNT 250 10^3/uL (150-450); RED BLOOD COUNT 4.02 10^6/uL (4.35-5.55); RED CELL DISTRIBUTION WIDTH 14.4 % (11.5-14.0); SEGMENTED NEUTROPHILS % (AUTO) 62.4 % (42-78); TOTAL CELLS COUNTED % (AUTO) 100 %; WHITE BLOOD COUNT 5.8 10^3/uL (4.0-10.5)
--- NOTE | 2020-03-13 12:35 | RADIOLOGY REPORT (SQ) ---
EXAM DESCRIPTION: CHEST SINGLE VIEW IMAGES COMPLETED DATE/TIME: 03/13/2020 11:09 am REASON FOR STUDY: bed 8 difficulty breathing. COMPARISON: 02/09/2020 EXAM PARAMETERS: NUMBER OF VIEWS: One view. TECHNIQUE: Single frontal radiographic view of the chest acquired. RADIATION DOSE: NA LIMITATIONS: None. FINDINGS: LUNGS AND PLEURA: Lungs are hyperinflated. No opacities, masses or pneumothorax. No pleur al effusion. MEDIASTINUM AND HILAR STRUCTURES: No masses. Contour normal. HEART AND VASCULAR STRUCTURES: Heart normal in size. Normal vasculature. BONES: No acute findings. HARDWARE: None in the chest. OTHER: No other significant finding. IMPRESSION: No acute cardiopulmonary disease. Hyperinflated lungs which can be seen with obstructiv e lung disease. TECHNICAL DOCUMENTATION: JOB ID: [id number] 2010 [employer]- All Rights Reserved Reading location - IP/workstation name: [email or web address]
[2020-03-13 12:50] LABS: ALBUMIN 4.3 g/dL (3.5-5.0); ALKALINE PHOSPHATASE 62 U/L (38-126); ANION GAP 6 (5-19); ASPARTATE AMINO TRANSFERASE 22 U/L (17-59); BILIRUBIN,TOTAL 0.4 mg/dL (0.2-1.3); BLOOD UREA NITROGEN 15 mg/dL (7-20); CALCIUM 9.1 mg/dL (8.4-10.2); CARBON DIOXIDE 29 mmol/L (22-30); CHLORIDE 100 mmol/L (98-107); CREATINE KINASE 140 U/L (55-170); GLUCOSE 100 mg/dL (75-110); POTASSIUM 4.5 mmol/L (3.6-5.0); TOTAL PROTEIN 6.6 g/dL (6.3-8.2)
[2020-03-13] MEDS ORDERED: ALBUTEROL SULFATE 0.083% NEB 2.5 MG/3 ML AMPUL NEB ONE (12:52)
[2020-03-13 12:59] LABS: CREATINE KINASE MB 2.58 ng/mL (<4.55)
[2020-03-13 13:01] LABS: TROPONIN I < 0.012 ng/mL
--- NOTE | 2020-03-13 13:06 | ER Document Report ---
Entered by EVAN SOLARES SCRIBE 03/13/20 1246 Acting as scribe for:PIO GUPTA MD ED General - General Chief Complaint: Shortness Of Breath Stated Complaint: SHORTNESS OF BREATH Time Seen by Provider: 03/13/20 12:37 Primary Care Provider: CHRISTINE TRAYLOR DO [Primary Care Provider] - Follow up as needed Information source: Patient, Emergency Med Personnel Notes: This 59-year-old male presents to the emergency department with shortness of breath that began this morning. Patient explained that he was 88% on room air at home and tried two nebulizer treatment with no relief. Patient states that he is supposed to be on 2.5 L of oxygen at home. Patient reports cough with occasional yellow sputum. EMS gave patient 2 duoneb treatments and 125 mg Solumedrol prior to arrival. Patient said that his breathing is better since the treatments. Patient mentions that he has a CAT scan appointment this Sunday for his lungs. TRAVEL OUTSIDE OF THE [place] IN LAST 30 DAYS: No - Related Data Allergies/Adverse Reactions: No Known Allergies Allergy (Verified 02/09/20 21:26) Home Medications: Obtained from patient's medication bottles, at bedside. Amoxicillin, Gabapentin, Fexofenadine, loratadine, metoprolol succ er, lisinopril Past Medical History - General Information source: Patient - Social History Smoking Status: Current Every Day Smoker Cigarette use (# per day): Yes - 5-6 cigarettes a day Chew tobacco use (# tins/day): No Frequency of alcohol use: Occasional Drug Abuse: Marijuana Family History: CAD, Hyperlipidemia, Hypertension Patient has homicidal ideation: No - Past Medical History Cardiac Medical History: Reports: Hx Congestive Heart Failure, Hx Coronary Artery Disease, Hx Heart Attack, Hx Hypertension Pulmonary Medical History: Reports: Hx Bronchitis, Hx COPD, Hx Respiratory Failure Neurological Medical History: Reports: Hx Seizures - Seizures when drinking states he has not drank in 16 years Musculoskeletal Medical History: Reports Hx Arthritis, Reports Hx Musculoskele vish Deformity - degenerative disc disease, Reports Hx Musculoskeletal Trauma Psychiatric Medical History: Reports: Hx Attention Deficit Hyperactivity Disorder, Hx Bipolar Disorder, Hx Depression - Major depressive, Hx Schizoaffective Disorder Traumatic Medical History: Reports: Hx Fractures, Hx Spine Fracture - States "back in 2 places" Past Surgical History: Reports: Hx Cardiac Catheterization, Other - Patient states he had left pleural effusion status post chest tube placemen - Immunizations Hx Diphtheria, Pertussis, Tetanus Vaccination: Yes Review of Systems - Review of Systems Constitutional: See HPI. denies: Fever EENT: No symptoms reported Cardiovascular: No symptoms reported Respiratory: See HPI, Cough, Short of breath, Sputum Gastrointestinal: No symptoms reported Genitourinary: No symptoms reported Male Genitourinary: No symptoms reported Musculoskeletal: No symptoms reported Skin: No symptoms reported Hematologic/Lymphatic: No symptoms reported Neurological/Psychological: No symptoms reported -: Yes All other systems reviewed and negative Physical Exam - Vital signs Vitals: Resp BP 18 127/77 H 03/13/20 11:55 03/13/20 11:55 - Notes Notes: Physical Exam: General: Alert, appears thin. HEENT: Normocephalic. Atraumatic. PERRL. Extraocular movements intact. Oropharynx clear. Neck: Supple. Non-tender. Respiratory: No respiratory distress. Tachypneic. Inspiratory and expiratory wheezes noted with mild rhonchi and distant breath sounds. Mild retracting. Scars from past pleural effusions on left chest wall. Cardiovascular: Regular rate and rhythm. Abdominal: Thin. Non-tender. No distension. Normal Bowel Sounds. Back: No gross abnormalities. Extremities: Moves all four extremities. Upper extremities: Normal inspection. Normal ROM. Lower extremities: Normal inspection. No edema. Normal ROM. Neurological: Normal cognition. AAOx4. Slurred baseline speech. Non-stop speech. Psychological: Normal affect. Normal Mood. Skin: Warm. Dry. Normal color. Course - Re-evaluation Re-evalutation: 03/13/20 14:27 Patient feels much better. His pulse ox is 99% on 2 L nasal cannula. He will be discharged on a course of doxycycline and prednisone. - Vital Signs Vital signs: Temp Pulse Resp BP Pulse Ox 97.8 F 15 147/89 H 98 03/13/20 11:59 03/13/20 13:01 03/13/20 13:01 03/13/20 13:00 - Laboratory Result Diagrams: 03/13/20 11:55 03/13/20 11:55 Laboratory results interpreted by me: 03/13/20 03/13/20 11:55 11:55 RBC 4.02 L Hgb 12.3 L Hct 36.2 L RDW 14.4 H Eos % (Auto) 7.2 H Sodium 135.0 L - Diagnostic Test Radiology reviewed: Image reviewed, Reports reviewed - Chest x-ray shows hyper inflated lungs with COPD. No acute changes. - EKG Interpretation by Me EKG shows normal: Sinus rhythm, [place], Intervals, ST-T Waves. abnormal: QRS Complexes - Borderline R wave progression in the anterior leads Rate: Normal - 59 Rhythm: NSR When compared to previous EKG there are: No significant change Discharge - Discharge Clinical Impression: COPD with acute exacerbation, Hypoxia Condition: Stable Disposition: HOME, SELF-CARE Additional Instructions: Start taking the prednisone as prescribed tomorrow, you had today's dose here in the emergency room. Start the doxycycline this evening, you will take 1 dose today as you had your first dose here in the emergency room. Use your nebulizer as needed for shortness of breath. Stop smoking. Follow-up with your primary care provider and your pulmonary medicine doctor next week if not improving. RETURN TO THE EMERGENCY ROOM IF ANY NEW OR WORSENING SYMPTOMS. Prescriptions: Prednisone [Deltasone 20 mg Tablet] 20 mg PO TID #15 tablet Doxycycline Hyclate 100 mg PO BID #20 tablet.dr Referrals: CHRISTINE TRAYLOR DO [Primary Care Provider] - Follow up as needed I personally performed the services described in the documentation, reviewed and edited the documentation which was dictated to the scribe in my presence, and it accurately records my words and actions.
[2020-03-13] MEDS: MAGNESIUM SULFATE/D5W 1 GM/100 ML RTUPB IV SCH ×2 (13:13→13:34)
[2020-03-13 13:25] LABS: APPEARANCE,URINE CLEAR; BILIRUBIN,URINE NEGATIVE (NEGATIVE); COLOR,URINE STRAW; GLUCOSE, URINE NEGATIVE (NEGATIVE); KETONES,URINE NEGATIVE (NEGATIVE); LEUKOCYTE ESTERASE,URINE NEGATIVE (NEGATIVE); NITRITE,URINE NEGATIVE (NEGATIVE); PROTEIN,URINE NEGATIVE (NEGATIVE); URINE SPECIFIC GRAVITY 1.011; UROBILINOGEN,URINE NEGATIVE mg/dL (<2.0)
[2020-03-13] MEDS ORDERED: DOXYCYCLINE HYCLATE 100 MG TABLET PO ONE (14:05)
[2020-03-13] MEDS ORDERED: PREDNISONE 20 MG TABLET PO ONE (14:05)
[2020-03-13 14:45] VITALS: BP 127/78
--- NOTE | 2020-03-13 21:24 | EKG REPORT ---
SEVERITY:- BORDERLINE ECG - SINUS RHYTHM BORDERLINE R WAVE PROGRESSION, ANTERIOR LEADS : Confirmed by: Blessing Serrano MD 13-Mar-2020 21:23:54
== END 2020-03-13 14:51 | disposition home or self-care (01) ==
LOC: ER 11:45
DX: J44.1 Chronic obstructive pulmonary disease with (acute) exacerbation (principal); R09.02 Hypoxemia; F17.210 Nicotine dependence, cigarettes, uncomplicated; I50.9 Heart failure, unspecified; I11.0 Hypertensive heart disease with heart failure; I25.2 Old myocardial infarction
CPT/HCPCS: 93005; 94640; 99285; 96365; 36415; 87040; 82553; 82550; 85025; 80053; 81001; 84484; 71045; 93010; J3490; J3475; J7512

== ENCOUNTER → 2020-03-15 | Outpatient (CLI) | payer MEDICAID ==
--- NOTE | 2020-03-15 14:01 | RADIOLOGY REPORT (SQ) ---
EXAM DESCRIPTION: CTA CHEST IMAGES COMPLETED DATE/TIME: 03/15/2020 1:13 pm REASON FOR STUDY: J96.21 ACUTE AND CHRONIC RESPIRATORY FAILURE WITH HYPOXIA J96.21 ACUTE AND CHRONI C RESPIRATORY FAILURE WITH HYPOXIA COMPARISON: CT of the chest with contrast from 02/22/2018. TECHNIQUE: CT scan of the chest performed using helical scanning technique with dynamic intravenous contrast injection. Images reviewed with lung, soft tissue and bone windows. Reconstructed coronal and sagittal MPR images reviewed. Additional 3 dimensional post-processing performed to develop Maximal Intensity Projection images (CO P). All images stored on PACS. All CT scanners at this facility use dose modulation, iterative reconstruction, and/or weight based d osing when appropriate to reduce radiation dose to as low as reasonably achievable (ALARA). [facility]: Dose Right [facility]: CareDose [facility]: Dose Right [facility]: Teradose 4D [facility]: [email or web address] CONTRAST TYPE AND DOSE: Contrast/concentration: Isovue 350.00 mg/ml; Total Contrast Delivered: 47.0 ml; Total Saline Delivered: 55.0 ml Contrast bolus optimized for the pulmonary arteries. RENAL FUNCTION: Creatinine 0.92 milligrams/deciliter. RADIATION DOSE: CT Rad equipment meets quality standard of care and radiation dose reduction techniq ues were employed. CTDIvol: 7.5 - 7.8 mGy. DLP: 393 mGy-cm. . LIMITATIONS: None. FINDINGS: LUNGS AND PLEURA: Centrilobular emphysema. The 4 mm nodule in the right lower lobe is sta ble from 02/23/2019. There are mucous plugs within segmental and intra segmental bronchi of the left upper and lower lobes without associated bronchiectasis, atelectasis or consolidation. There is also no pleural effusion or pneumothorax. AORTA AND GREAT VESSELS: No thoracic aortic dissection or aneurysm. HEART: The left ventricle is enlarged and there is mild atherosclerotic calcification of the coronar y arteries. There is no pericardial effusion. PULMONARY ARTERIES: No emboli. HILAR AND MEDIASTINAL STRUCTURES: No adenopathy or mass. HARDWARE: None in the chest. UPPER ABDOMEN: No acute findings. THYROID AND OTHER SOFT TISSUES: No mass or adenopathy. BONES: Focal kyphotic angulation of the lumbar spine centered at L2 with grade 1 retrolisthesis of L2 relative to L3 and L3 relative to L4. 3D MIPS: Confirm above findings. OTHER: No other finding. IMPRESSION: 1. No pulmonary emboli. 2. Mucous plugs within segmental and intra segmental bronchi of the left upper and lower lobes witho ut associated bronchiectasis, atelectasis or consolidation. 3. Stable 4 mm nodule in the right lower lobe. COMMENT: Quality ID # [id number]: Final reports with documentation of one or more dose reduction techniques (e.g., Automated exposure control, adjustment of the mA and/or kV according to patient size, use of iterative reconstruction technique) TECHNICAL DOCUMENTATION: JOB ID: [id number] 2010 [employer]- All Rights Reserved Reading location - IP/workstation name: [email or web address]-
== END ==
LOC: RAD 12:35
PROVIDERS: ATTEND Internal Medicine Pulmonary Disease
DX: R91.1 Solitary pulmonary nodule (principal); J96.21 Acute and chronic respiratory failure with hypoxia
CPT/HCPCS: 71275

== ENCOUNTER 2020-05-12 03:13 | Emergency (ER) | payer MEDICAID ==
[2020-05-12 04:09] VITALS: BP 110/56
--- NOTE | 2020-05-12 04:21 | ER Document Report ---
ED Medical Screen (RME) - General Chief Complaint: Leg Pain Stated Complaint: BILATERAL LEG PAIN KNEE DOWN Time Seen by Provider: 05/12/20 04:17 Primary Care Provider: CHRISTINE TRAYLOR DO [Primary Care Provider] - Follow up as needed Mode of Arrival: Ambulatory Information source: Patient Notes: 59-year-old male presented to ED for complaint of bilateral lower extremity pain. He is very anxious agitated and stating that he needs pain medicines for his lower extremity pain. He states he has similar pains every couple months. He states he had to walk over here. He states he gets this pain frequently and he needs a pain shot. He does have a longstanding cardiac and psych history. His blood pressure at this time is 98/56 with a pulse of 58. I have greeted and performed a rapid initial assessment of this patient. A comprehensive ED assessment and evaluation of the patient, analysis of test results and completion of medical decision making process will be conducted by an additional ED providers. TRAVEL OUTSIDE OF THE [place] IN LAST 30 DAYS: No - Related Data Allergies/Adverse Reactions: No Known Allergies Allergy (Verified 05/12/20 03:23) Past Medical History - Social History Frequency of alcohol use: None Drug Abuse: None - Past Medical History Cardiac Medical History: Reports: Hx Congestive Heart Failure, Hx Coronary Artery Disease, Hx Heart Attack, Hx Hypertension Denies: Hx DVT, Hx Hypercholesterolemia, Hx Pulmonary Embolism Pulmonary Medical History: Reports: Hx Bronchitis, Hx COPD, Hx Respiratory Failure Neurological Medical History: Reports: Hx Seizures - Seizures when drinking states he has not drank in 16 years Endocrine Medical History: Denies: Hx Diabetes Mellitus Type 1, Hx Diabetes Mellitus Type 2, Hx Hyperthyroidism, Hx Hypothyroidism Renal/ Medical History: Denies: Hx Peritoneal Dialysis GI Medical History: Denies: Hx Cirrhosis, Hx Gastroesophageal Reflux Disease, Hx Hepatitis Musculoskeltal Medical History: Reports Hx Arthritis, Denies Hx Gout, Reports Hx Musculoskeletal Deformity - degenerative disc disease, Reports Hx Musculoskeletal Trauma Psychiatric Medical History: Reports: Hx Attention Deficit Hyperactivity Disorder, Hx Bipolar Disorder, Hx Depression - Major depressive, Hx Schizoaffective Disorder Traumatic Medical History: Reports: Hx Fractures, Hx Spine Fracture - States "back in 2 places" Infectious Medical History: Denies: Hx Hepatitis Past Surgical History: Reports: Hx Cardiac Catheterization, Other - Patient states he had left pleural effusion status post chest tube placemen - Immunizations Hx Diphtheria, Pertussis, Tetanus Vaccination: Yes Physical Exam - Vital signs Vitals: Temp 96.8 F L 05/12/20 03:24 Course - Vital Signs Vital signs: Temp Pulse Resp BP Pulse Ox 96.8 F L 87 15 110/56 L 97 05/12/20 03:30 05/12/20 03:30 05/12/20 03:30 05/12/20 04:09 05/12/20 03:30 Doctor's Discharge - Discharge Referrals: CHRISTINE TRAYLOR DO [Primary Care Provider] - Follow up as needed
[2020-05-12] MEDS ORDERED: NORMAL SALINE 1000 ML 1,000 ML IV ONE (04:22)
[2020-05-12 04:41] LABS: ABSOLUTE EOSINOPHILS # (AUTO) 0.3 10^3/uL (0.0-0.6); ABSOLUTE LYMPHOCYTES (AUTO) 1.4 10^3/uL (0.5-4.7); ABSOLUTE MONOCYTES (AUTO) 0.8 10^3/uL (0.1-1.4); BASOPHILS % (AUTO) 0.3 % (0-2); EOSINOPHILS % (AUTO) 5.2 % (0-6); HEMATOCRIT 37.3 % (37.9-51.0); HEMOGLOBIN 12.9 g/dL (13.5-17.0); MEAN CORPUSCULAR HEMOGLOBIN 31.5 pg (27.0-33.4); MEAN CORPUSCULAR HGB CONC 34.6 g/dL (32.0-36.0); MEAN CORPUSCULAR VOLUME 91 fl (80-97); MONOCYTES % (AUTO) 12.1 % (3-13); PLATELET COUNT 267 10^3/uL (150-450); RED BLOOD COUNT 4.09 10^6/uL (4.35-5.55); RED CELL DISTRIBUTION WIDTH 14.6 % (11.5-14.0); SEGMENTED NEUTROPHILS % (AUTO) 61.4 % (42-78); TOTAL CELLS COUNTED % (AUTO) 100 %; WHITE BLOOD COUNT 6.5 10^3/uL (4.0-10.5)
[2020-05-12 04:56] LABS: ALBUMIN 4.5 g/dL (3.5-5.0); ALKALINE PHOSPHATASE 65 U/L (38-126); ANION GAP 10 (5-19); ASPARTATE AMINO TRANSFERASE 25 U/L (17-59); BILIRUBIN,TOTAL 0.4 mg/dL (0.2-1.3); BLOOD UREA NITROGEN 47 mg/dL (7-20); CALCIUM 9.4 mg/dL (8.4-10.2); CARBON DIOXIDE 24 mmol/L (22-30); CHLORIDE 100 mmol/L (98-107); CREATINE KINASE 355 U/L (55-170); GLUCOSE 99 mg/dL (75-110); POTASSIUM 3.9 mmol/L (3.6-5.0); TOTAL PROTEIN 6.8 g/dL (6.3-8.2)
--- NOTE | 2020-05-12 22:01 | EKG REPORT ---
SEVERITY:- BORDERLINE ECG - SINUS RHYTHM BORDERLINE R WAVE PROGRESSION, ANTERIOR LEADS BORDERLINE T ABNORMALITIES, LATERAL LEADS : Confirmed by: Blessing Serrano MD 12-May-2020 22:01:34
== END 2020-05-12 05:19 | disposition left against medical advice (07) ==
LOC: ER 03:13
DX: M79.661 Pain in right lower leg (principal); M79.662 Pain in left lower leg; I25.10 Atherosclerotic heart disease of native coronary artery without angina pectoris; I10 Essential (primary) hypertension; J44.9 Chronic obstructive pulmonary disease, unspecified; Z53.20 Procedure and treatment not carried out because of patient's decision for unspecified reasons
CPT/HCPCS: 36415; 80053; 82550; 83735; 84484; 85025; 93005; 93010; 99281

== ENCOUNTER 2020-06-05 10:01 | Emergency (ER) | payer MEDICAID ==
--- NOTE | 2020-06-05 10:11 | ER Document Report ---
ED Medical Screen (RME) - General Chief Complaint: Rectal Abscess Stated Complaint: POSSIBLE CYST Time Seen by Provider: 06/05/20 10:07 Primary Care Provider: CHRISTINE TRAYLOR DO [Primary Care Provider] - Follow up as needed Mode of Arrival: Ambulatory Information source: Patient Notes: 59-year-old male presented to ED for complaint of a painful abscess beside the rectum. He states is been about 3 to 4 days. States is very painful. He states he smokes 1/4 to 1/2 pack/day has not drank or used any drugs in 21 years. Past medical history bipolar personality disorder. Patient is alert oriented respirations regular nonlabored speaking in full sentences walks with a even steady gait. Offered Tylenol or Motrin and. He states now he would rather see the doctor. I have greeted and performed a rapid initial assessment of this patient. A comprehensive ED assessment and evaluation of the patient, analysis of test results and completion of medical decision making process will be conducted by an additional ED providers. TRAVEL OUTSIDE OF THE [place] IN LAST 30 DAYS: No - Related Data Allergies/Adverse Reactions: No Known Allergies Allergy (Verified 05/12/20 03:23) Past Medical History - Past Medical History Cardiac Medical History: Reports: Hx Congestive Heart Failure, Hx Coronary Artery Disease, Hx Heart Attack, Hx Hypertension Denies: Hx DVT, Hx Hypercholesterolemia, Hx Pulmonary Embolism Pulmonary Medical History: Reports: Hx Bronchitis, Hx COPD, Hx Respiratory Failure Neurological Medical History: Reports: Hx Seizures - Seizures when drinking states he has not drank in 16 years Endocrine Medical History: Denies: Hx Diabetes Mellitus Type 1, Hx Diabetes Mellitus Type 2, Hx Hyperthyroidism, Hx Hypothyroidism Renal/ Medical History: Denies: Hx Peritoneal Dialysis GI Medical History: Denies: Hx Cirrhosis, Hx Gastroesophageal Reflux Disease, Hx Hepatitis Musculoskeltal Medical History: Reports Hx Arthritis, Denies Hx Gout, Reports Hx Musculoskeletal Deformity - degenerative disc disease, Reports Hx Musculoskeletal Trauma Psychiatric Medical History: Reports: Hx Attention Deficit Hyperactivity Disorder, Hx Bipolar Disorder, Hx Depression - Major depressive, Hx Schizoaffective Disorder Traumatic Medical History: Reports: Hx Fractures, Hx Spine Fracture - States "back in 2 places" Infectious Medical History: Denies: Hx Hepatitis Past Surgical History: Reports: Hx Cardiac Catheterization, Other - Patient states he had left pleural effusion status post chest tube placemen - Immunizations Hx Diphtheria, Pertussis, Tetanus Vaccination: Yes Doctor's Discharge - Discharge Referrals: CHRISTINE TRAYLOR, [Primary Care Provider] - Follow up as needed
[2020-06-05 10:23] VITALS: BP 114/62
== END 2020-06-05 12:45 | disposition left against medical advice (07) ==
LOC: ER 10:01
DX: K61.1 Rectal abscess (principal); F17.210 Nicotine dependence, cigarettes, uncomplicated; I50.9 Heart failure, unspecified; I25.10 Atherosclerotic heart disease of native coronary artery without angina pectoris; I11.0 Hypertensive heart disease with heart failure; I25.2 Old myocardial infarction
CPT/HCPCS: 99281

== ENCOUNTER 2020-06-25 04:53 | Inpatient (IN) | payer MEDICAID ==
[2020-06-25] MEDS ORDERED: MIDAZOLAM HCL 50 MG/100 ML RTUINJ IV PRN (05:06)
[2020-06-25] MEDS ORDERED: PROPOFOL 1,000 MG/100 ML INFUS..BTL IV PRN ×3 (05:06→13:23)
[2020-06-25] MEDS ORDERED: MIDAZOLAM 2 MG/2 ML INJ IV ONE (05:15)
[2020-06-25] MEDS ORDERED: MIDAZOLAM 2 MG/2 ML INJ ONE (05:16)
--- NOTE | 2020-06-25 05:19 | ER Document Report ---
ED General - General Chief Complaint: Shortness Of Breath Stated Complaint: SHORT OF BREATH TRAVEL OUTSIDE OF THE [place] IN LAST 30 DAYS: No - HPI Notes: 59-year-old male history of COPD on home O2 as per EMS presents with respiratory failure. EMS was activated for shortness of breath and upon EMS arrival patient was giving himself and have by very obtunded, unable to answer questions. Patient was satting 60% on 4 L of home O2, because patient was so obtunded a started providing assisted ventilation with BVM but were unable to get O2 sat after that. No meds given in route. Patient arrived in obtunded delirium unable to answer any questions. History limited by patient acuity. - Related Data Allergies/Adverse Reactions: No Known Allergies Allergy (Verified 06/25/20 05:14) Past Medical History - General Information source: Emergency Med Personnel, [facility] Records - Social History Smoking Status: Smoker,Current Status Unk Family History: CAD, Hyperlipidemia, Hypertension - Past Medical History Cardiac Medical History: Reports: Hx Congestive Heart Failure, Hx Coronary Artery Disease, Hx Heart Attack, Hx Hypertension Denies: Hx DVT, Hx Hypercholesterolemia, Hx Pulmonary Embolism Pulmonary Medical History: Reports: Hx Bronchitis, Hx COPD, Hx Respiratory Failure Neurological Medical History: Reports: Hx Seizures - Seizures when drinking states he has not drank in 16 years Endocrine Medical History: Denies: Hx Diabetes Mellitus Type 1, Hx Diabetes Mellitus Type 2, Hx Hyperthyroidism, Hx Hypothyroidism Renal/ Medical History: Denies: Hx Peritoneal Dialysis GI Medical History: Denies: Hx Cirrhosis, Hx Gastroesophageal Reflux Disease, Hx Hepatitis Musculoskeletal Medical History: Reports Hx Arthritis, Denies Hx Gout, Reports Hx Musculoskeletal Deformity - degenerative disc disease, Reports Hx Musculoskeletal Trauma Psychiatric Medical History: Reports: Hx Attention Deficit Hyperactivity Disorder, Hx Bipolar Disorder, Hx Depression - Major depressive, Hx Schizoaffective Disorder Traumatic Medical History: Reports: Hx Fractures, Hx Spine Fracture - States "back in 2 places" Infectious Medical History: Denies: Hx Hepatitis Past Surgical History: Reports: Hx Cardiac Catheterization, Other - Patient states he had left pleural effusion status post chest tube placemen - Immunizations Hx Diphtheria, Pertussis, Tetanus Vaccination: Yes Review of Systems - Review of Systems -: Yes ROS unobtainable due to patient's medical condition Physical Exam - Vital signs Vitals: Resp Pulse Ox 18 100 06/25/20 04:56 06/25/20 04:56 - Notes Notes: PHYSICAL EXAMINATION: GENERAL: Emaciated middle-aged man appearing older than stated age obtunded and in respiratory failure being ventilated by EMS HEAD: Atraumatic, normocephalic. EYES: Pupils equal round and appropriate constriction, sclera anicteric, conjunctiva are normal. ENT: nares patent, moist mucous membranes. NECK: Normal range of motion, supple without lymphadenopathy LUNGS: BVM ventilation in progress, patient diffusely wheezing, tachypneic, unable to speak secondary to acute severe respiratory distress HEART: regular tachycardia without murmurs rubs or gallops ABDOMEN: Soft, nontender, no guarding, no masses, no CVAT EXTREMITIES: Normal range of motion, no pitting or edema. No cyanosis. NEUROLOGICAL: Mildly combative intermittently obtunded, moving all extremities spontaneously SKIN: Warm, Dry, normal turgor, no rashes or lesions noted. Course - Re-evaluation Re-evalutation: 06/25/20 05:27 Patient with history of COPD, CAD presents with acute respiratory failure. Presentation was consistent with acute COPD exacerbation, rule out ACS, acute pulmonary edema, COVID-19, pneumonia. Patient intubated immediately upon arrival with first-pass success confirmed by color change capnography and bilateral breath sounds, chest x-ray pending. 06/25/20 06:18 Patient hypotensive since intubation likely secondary to positive pressure, patient clinically dry but has history of severe CHF with EF 35% approximately 2 years ago so I performed bedside ultrasound which showed bilateral a lines in lungs, LV and RV fully collapsing with systole, and IVC fully collapsing so ordered 1 L bolus as patient should be fluid responsive. Discussed case with ICU AIRPLANE REFUELER Anna who has accepted patient to ICU. 06/25/20 06:57 Patient lactate of 2.2 expected for severe exertion from respiratory distress, no fever, no leukocytosis, very low suspicion for sepsis. Patient not approp riate for 30 mL/kg bolus given severe CHF, gave 1 L after assessing likely fluid responsiveness. - Vital Signs Vital signs: Temp Pulse Resp BP Pulse Ox 17 75/54 L 100 06/25/20 06:21 06/25/20 06:21 06/25/20 06:21 - Laboratory Result Diagrams: 06/25/20 05:03 06/25/20 05:03 Laboratory results interpreted by me: 06/25/20 06/25/20 06/25/20 05:03 05:03 05:03 RDW 14.4 H Eos % (Auto) 8.7 H Absolute Eos (auto) 0.9 H VBG pH VBG pCO2 Sodium 135.6 L Glucose 282 H Lactic Acid 2.2 H NT-Pro-B Natriuret Pep 06/25/20 06/25/20 05:03 06:17 RDW Eos % (Auto) Absolute Eos (auto) VBG pH 7.20 L VBG pCO2 69.9 H* Sodium Glucose Lactic Acid NT-Pro-B Natriuret Pep 585 H - EKG Interpretation by Me Additional EKG results interpreted by me: 06/25/20 05:31 Heart rate 107, sinus tachycardia, no significant ST elevations, equivocal infer ior ST depressions, QTC 465 Procedures - Intubation Orotracheal Time of Intubation: 05:00 Airway evaluation: Normal anatomy, Loose teeth Medications: Succinylcholine, Ketamine Intubation method: Orotracheal Blade type: Lisa Blade size: 4 ETT size: 8.0 ETT secured at: Lips ETT secured at (cm): 26 Breath Sounds after Intubation: Equal End tidal CO2 confirmed: Yes Post Intubation Xray: Yes Intubation Complications: No complications - Ultrasound/Bedside Ultrasound/Bedside Time completed: 06:00 Ultrasound: Other Notes: 06/25/20 06:56 Lung ultrasound shows no fluid overload, bilateral a lines, cardiac ultrasound shows fully collapsing ventricles, IVC ultrasound fully collapsing Critical Care Note - Critical Care Note Total time excluding time spent on procedures (mins): 75 - Time spent repeatedly reassessing critically ill patient with respiratory failure and hypotension Discharge - Discharge Clinical Impression: Respiratory failure Qualifiers: Chronicity: acute on chronic Respiratory failure complication: hypoxia and hypercapnia Qualified Code(s): J96.21 - Acute and chronic respiratory failure with hypoxia Disposition: ADMITTED INPATIENT Admitting Provider: [facility] ([facility] Unit Admitted: ICU
[2020-06-25 05:30] LABS: ABSOLUTE BASOPHILS # (AUTO) 0.1 10^3/uL (0.0-0.2); ABSOLUTE EOSINOPHILS # (AUTO) 0.9 10^3/uL (0.0-0.6); ABSOLUTE LYMPHOCYTES (AUTO) 3.1 10^3/uL (0.5-4.7); ABSOLUTE MONOCYTES (AUTO) 0.8 10^3/uL (0.1-1.4); ABSOLUTE NEUT (AUTO) 5.5 10^3/uL (1.7-8.2); BASOPHILS % (AUTO) 0.6 % (0-2); EOSINOPHILS % (AUTO) 8.7 % (0-6); HEMATOCRIT 40.7 % (37.9-51.0); HEMOGLOBIN 13.7 g/dL (13.5-17.0); MEAN CORPUSCULAR HEMOGLOBIN 30.9 pg (27.0-33.4); MEAN CORPUSCULAR HGB CONC 33.5 g/dL (32.0-36.0); MEAN CORPUSCULAR VOLUME 92 fl (80-97); MONOCYTES % (AUTO) 7.5 % (3-13); PLATELET COUNT 264 10^3/uL (150-450); RED BLOOD COUNT 4.41 10^6/uL (4.35-5.55); RED CELL DISTRIBUTION WIDTH 14.4 % (11.5-14.0); SEGMENTED NEUTROPHILS % (AUTO) 53.2 % (42-78); TOTAL CELLS COUNTED % (AUTO) 100 %; WHITE BLOOD COUNT 10.4 10^3/uL (4.0-10.5)
[2020-06-25] MEDS ORDERED: KETAMINE HCL INJ 500 MG/10 ML VIAL IV ONE ×3 (05:32→06:07)
[2020-06-25] MEDS ORDERED: SUCCINYLCHOLINE CHLORIDE INJ 200 MG/10 ML VIAL IV ONE (05:33)
[2020-06-25 05:41] LABS: ALBUMIN 4.2 g/dL (3.5-5.0); ALKALINE PHOSPHATASE 63 U/L (38-126); ANION GAP 8 (5-19); ASPARTATE AMINO TRANSFERASE 50 U/L (17-59); BILIRUBIN,TOTAL 0.6 mg/dL (0.2-1.3); BLOOD UREA NITROGEN 8 mg/dL (7-20); CALCIUM 9.1 mg/dL (8.4-10.2); CARBON DIOXIDE 29 mmol/L (22-30); CHLORIDE 99 mmol/L (98-107); GLUCOSE 282 mg/dL (75-110); TOTAL PROTEIN 6.6 g/dL (6.3-8.2)
[2020-06-25] MEDS ORDERED: METHYLPREDNISOLONE INJ 125 MG/2 ML SDV IV ONE (05:41)
[2020-06-25] MEDS ORDERED: ALBUTEROL SULFATE 0.083% NEB 2.5 MG/3 ML AMPUL NEB ONE (05:41)
[2020-06-25] MEDS ORDERED: NORMAL SALINE 250 ML IV ONE (05:42)
[2020-06-25 05:49] LABS: INTERNATIONAL RATION (INR) 0.95; PROTHROMBIN TIME 12.9 SEC (11.4-15.4)
[2020-06-25 05:52] LABS: NT PRO BNP 585 pg/mL (<125)
[2020-06-25 05:53] LABS: TROPONIN I < 0.012 ng/mL
[2020-06-25] MEDS ORDERED: NORMAL SALINE 1000 ML 750 ML IV ONE (06:07)
[2020-06-25] MEDS ORDERED: CEFTRIAXONE 1 GM/D5W RTU 1 GM/50 ML RTUPB IV ONE (06:09)
[2020-06-25] MEDS ORDERED: AZITHROMYCIN INJ 500 MG VIAL IV ONE (06:09)
--- NOTE | 2020-06-25 06:23 | RADIOLOGY REPORT (SQ) ---
CLINICAL HISTORY: resp failure intubated copd COMPARISON: 03/31/2020. TECHNIQUE: XR CHEST 1 VIEW 06/25/2020 5:14 AM CDT FINDINGS: Cardiac silhouette is normal in size. There is extensive emphysema throughout both lungs. There is no pleural effusion. There is no pneumothorax. There are no acute osseous findings. Endotracheal tube tip is in the lower trachea. NG tube tip is in the upper stomach. IMPRESSION: Endotracheal tube tip in the lower trachea.
[2020-06-25 06:43] LABS: VENOUS BLOOD BASE EXCESS -2.6 mmol/L; VENOUS BLOOD HCO3 26.8 mmol/L (20-32); VENOUS BLOOD PH 7.2 (7.30-7.42)
[2020-06-25 06:49] LABS: VENOUS BLOOD PCO2 69.9 mmHg (35-63)
[2020-06-25] MEDS ORDERED: DEXTROSE 5%-WATER 250 ML with NOREPINEPHRINE BITARTRATE 4 MG IV PRN ×2 (06:52)
[2020-06-25 09:29] LABS: ARTERIAL BLOOD BASE EXCESS 2.1 mmol/L; ARTERIAL BLOOD H2CO3 1.69 mmol/L (1.05-1.35); ARTERIAL BLOOD HCO3 29.1 mmol/L (20-24); ARTERIAL BLOOD O2 SATURATION 98.7 % (94-98); ARTERIAL BLOOD PH 7.33 (7.35-7.45); ARTERIAL BLOOD PO2 148.7 mmHg (80-100); ARTERIAL BLOOD TOTAL CO2 30.8 mmol/L (23-27)
[2020-06-25 09:30] LABS: ARTERIAL BLOOD FIO2 60%
[2020-06-25] MEDS ORDERED: SUCCINYLCHOLINE CHLORIDE INJ 200 MG/10 ML VIAL ONE (10:00)
[2020-06-25] MEDS ORDERED: DEXMEDETOMIDINE IN 0.9 % NACL 400 MCG/100 ML RTUPB IV PRN (11:25)
[2020-06-25] MEDS ORDERED: ALBUTEROL SULFATE 0.083% NEB 2.5 MG/3 ML AMPUL NEB PRN (13:20)
[2020-06-25] MEDS ORDERED: DEXTROSE 40% GEL 15 GM TUBE PO PRN ×2 (13:23)
[2020-06-25] MEDS ORDERED: DEXTROSE 50%-WATER 25 GM/50 ML DISP.SYRIN IV PRN ×2 (13:23)
[2020-06-25] MEDS ORDERED: GLUCAGON,HUMAN RECOMB 1 MG INJ SUBCUT PRN (13:23)
[2020-06-25] MEDS: ALBUTEROL SULFATE 0.083% NEB 2.5 MG/3 ML AMPUL NEB SCH ×2 (14:24→20:18)
[2020-06-25] MEDS ORDERED: MORPHINE SULFATE 10 MG/ML INJ ONE (15:05)
[2020-06-25] MEDS: HEPARIN SOD (PORCINE) 5,000 UNIT/ML 1 ML VIAL SUBCUT SCH ×2 (15:07→21:28)
[2020-06-25] MEDS: FAMOTIDINE INJ/PF 20 MG/2 ML SDV IV SCH ×2 (15:07→21:28)
[2020-06-25 15:17] LABS: NT PRO BNP 638 pg/mL (<125)
[2020-06-25 15:20] LABS: TROPONIN I < 0.012 ng/mL
[2020-06-25] MEDS ORDERED: DEXMEDETOMIDINE IN 0.9 % NACL 400 MCG/100 ML RTUPB IV ONE (15:30)
--- NOTE | 2020-06-25 16:37 | EKG REPORT ---
SEVERITY:- ABNORMAL ECG - SINUS TACHYCARDIA BIATRIAL ABNORMALITIES ANTERIOR INFARCT, OLD : Confirmed by: Luis Angel Moore MD 25-Jun-2020 16:36:00
[2020-06-25 16:53] LABS: URINE AMPHETAMINES SCREEN NEGATIVE; URINE BARBITURATES SCREEN NEGATIVE; URINE COCAINE SCREEN NEGATIVE; URINE METHADONE SCREEN NEGATIVE; URINE PHENCYCLIDINE SCREEN NEGATIVE
[2020-06-25 16:58] LABS: URINE BENZODIAZEPINES SCREEN UNCONFIRMED POSITIVE; URINE MARIJUANA (THC) SCREEN UNCONFIRMED POSITIVE
[2020-06-25] MEDS ORDERED: MIDAZOLAM HCL 50 MG/100 ML RTUINJ ONE (17:01)
[2020-06-25] MEDS: DEXMEDETOMIDINE IN 0.9 % NACL 400 MCG/100 ML RTUPB IV PRN ×2 (17:18→19:02)
[2020-06-25] MEDS: MIDAZOLAM HCL 50 MG/100 ML RTUINJ IV PRN ×2 (17:19→21:27)
[2020-06-25] MEDS: MORPHINE SULFATE 10 MG/ML INJ IV SCH ×2 (17:19→21:28)
[2020-06-25 17:41] LABS: ARTERIAL BLOOD BASE EXCESS 0.3 mmol/L; ARTERIAL BLOOD H2CO3 1.24 mmol/L (1.05-1.35); ARTERIAL BLOOD HCO3 25.1 mmol/L (20-24); ARTERIAL BLOOD O2 SATURATION 98.7 % (94-98); ARTERIAL BLOOD PCO2 41.2 mmHg (35-45); ARTERIAL BLOOD PO2 132.7 mmHg (80-100); ARTERIAL BLOOD TOTAL CO2 26.3 mmol/L (23-27)
[2020-06-25 17:47] LABS: ARTERIAL BLOOD FIO2 60%
[2020-06-25] MEDS ORDERED: FUROSEMIDE INJ/PF 40 MG/4 ML SDV IV ONE (18:00)
[2020-06-25] MEDS: METHYLPREDNISOLONE INJ 125 MG/2 ML SDV IV SCH (18:31)
[2020-06-25] MEDS: BUDESONIDE NEB 0.25 MG/2 ML AMPUL NEB SCH (20:18)
[2020-06-26] MEDS: METHYLPREDNISOLONE INJ 125 MG/2 ML SDV IV SCH ×3 (00:38→21:26)
[2020-06-26] MEDS: MORPHINE SULFATE 10 MG/ML INJ IV SCH ×6 (00:38→21:26)
[2020-06-26] MEDS: DEXMEDETOMIDINE IN 0.9 % NACL 400 MCG/100 ML RTUPB IV PRN ×5 (00:43→23:01)
[2020-06-26] MEDS ORDERED: NORMAL SALINE 1000 ML 1,000 ML IV PRN (02:10)
[2020-06-26] MEDS: ALBUTEROL SULFATE 0.083% NEB 2.5 MG/3 ML AMPUL NEB SCH ×4 (02:44→19:51)
[2020-06-26] MEDS ORDERED: RINGERS SOLUTION,LACTATED 1,000 ML IV PRN (03:31)
[2020-06-26] MEDS: MIDAZOLAM HCL 50 MG/100 ML RTUINJ IV PRN ×4 (04:09→19:27)
[2020-06-26] MEDS: HEPARIN SOD (PORCINE) 5,000 UNIT/ML 1 ML VIAL SUBCUT SCH ×3 (05:06→21:25)
[2020-06-26 05:12] LABS: ARTERIAL BLOOD BASE EXCESS 2.3 mmol/L; ARTERIAL BLOOD HCO3 27.1 mmol/L (20-24); ARTERIAL BLOOD O2 SATURATION 96.8 % (94-98); ARTERIAL BLOOD PCO2 43.1 mmHg (35-45); ARTERIAL BLOOD PH 7.42 (7.35-7.45); ARTERIAL BLOOD PO2 88.4 mmHg (80-100); ARTERIAL BLOOD TOTAL CO2 28.5 mmol/L (23-27)
[2020-06-26 05:20] LABS: ARTERIAL BLOOD FIO2 50%
[2020-06-26 06:48] LABS: HEMATOCRIT 36.4 % (37.9-51.0); HEMOGLOBIN 12.3 g/dL (13.5-17.0); MEAN CORPUSCULAR HEMOGLOBIN 30.4 pg (27.0-33.4); MEAN CORPUSCULAR HGB CONC 33.8 g/dL (32.0-36.0); MEAN CORPUSCULAR VOLUME 90 fl (80-97); PLATELET COUNT 170 10^3/uL (150-450); RED BLOOD COUNT 4.05 10^6/uL (4.35-5.55); WHITE BLOOD COUNT 6.9 10^3/uL (4.0-10.5)
[2020-06-26 07:02] LABS: ALBUMIN 3.7 g/dL (3.5-5.0); ALKALINE PHOSPHATASE 61 U/L (38-126); ASPARTATE AMINO TRANSFERASE 26 U/L (17-59); BILIRUBIN,TOTAL 0.3 mg/dL (0.2-1.3); BLOOD UREA NITROGEN 17 mg/dL (7-20); CALCIUM 8.7 mg/dL (8.4-10.2); GLUCOSE 174 mg/dL (75-110); POTASSIUM 4.4 mmol/L (3.6-5.0); TOTAL PROTEIN 6.2 g/dL (6.3-8.2)
[2020-06-26 07:07] LABS: CARBON DIOXIDE 30 mmol/L (22-30); CHLORIDE 101 mmol/L (98-107)
[2020-06-26 07:09] LABS: ABSOLUTE LYMPHOCYTES# (MANUAL) 0.6 10^3/uL (0.5-4.7); ABSOLUTE MONOCYTES # (MANUAL) 0.2 10^3/uL (0.1-1.4); BASOPHILS % (MANUAL) 0 % (0-2); EOSINOPHILS % (MANUAL) 0 % (0-6); LYMPHOCYTES % (MANUAL) 9 % (13-45); MONOCYTES % (MANUAL) 3 % (3-13); PLATELET COMMENT ADEQUATE; RBC MORPHOLOGY COMMENT NORMO-CYTIC/CHROMIC; SEGMENTED NEUTROPHILS % (MAN) 88 % (42-78); TOTAL CELLS COUNTED 100
[2020-06-26 07:11] LABS: ANION GAP 4 (5-19)
[2020-06-26] MEDS: BUDESONIDE NEB 0.25 MG/2 ML AMPUL NEB SCH ×2 (08:35→19:51)
[2020-06-26] MEDS ORDERED: FUROSEMIDE INJ/PF 40 MG/4 ML SDV IV ONE (09:13)
[2020-06-26] MEDS: FAMOTIDINE INJ/PF 20 MG/2 ML SDV IV SCH ×2 (09:47→21:26)
[2020-06-26] MEDS: MAGNESIUM SULFATE/D5W 1 GM/100 ML RTUPB IV SCH ×5 (09:48→22:59)
[2020-06-26] MEDS: CEFTRIAXONE 1 GM/D5W RTU 1 GM/50 ML RTUPB IV SCH (09:49)
--- NOTE | 2020-06-26 10:09 | CRITICAL CARE ADMISSION REPORT ---
HPI Date:: 06/25/20 Time:: 12:41 Reason for ICU Reason:: Acute hypoxemic respiratory failure Admission Date/Time & PCP: Admission Date/Time: 06/25/20 06:32 Primary Care Provider: CHRISTINE TRAYLOR DO HPI: This 59-year-old male presented to [facility] emergency department with increased shortness of breath. The patient called EMS; however, inspection engineer found the patient to be obtunded and unable to answer questions. SPO2 was noted to be 60% on his 4 LPM via nasal cannula. He has end-stage COPD and is on long-term oxygen therapy (4 LPM at baseline). He was transported to [facility] emergency department, where he remained obtunded and, consequently, was intubated. No arterial blood gas analysis was obtained. ABG obtained after arrival in the ICU on mechanical ventilatory support: pH 7.33, PCO2 56, PO2 149. History obtained from:: Review of the chart. - Diagnosis/Plan (1) Acute on chronic respiratory failure with hypoxia and hypercapnia Is this a current diagnosis for this admission?: Yes Plan: Titrate ventilator settings based on ABG results. Propofol for sedation. May need to add fentanyl. (2) COPD exacerbation Is this a current diagnosis for this admission?: Yes Plan: Albuterol scheduled and as needed. Add budesonide. Solu-Medrol 60 mg IV every 6 hours. On Rocephin/azithromycin. (3) Systolic CHF, chronic Is this a current diagnosis for this admission?: Yes Plan: Strict I's and O's. Avoid volume overload. (4) Lactic acidosis Is this a current diagnosis for this admission?: Yes Plan: Trend lactate. Hemodynamically stable at this time. Past Medical History Cardiac Medical History: Reports: Congestive Heart Failure, Coronary Artery Disease, Myocardial Infarction, Hypertension Denies: DVT, Hyperlipidema, Pulmonary Embolism Pulmonary Medical History: Reports: Bronchitis, Chronic Obstructive Pulmonary Disease (COPD), Respiratory Failure Neurological Medical History: Reports: Seizures - Seizures when drinking states he has not drank in 16 years Endocrine Medical History: Denies: Diabetes Mellitus Type 1, Diabetes Mellitus Type 2, Hyperthyroidism, Hypothyroidism GI Medical History: Denies: Cirrhosis, Gastroesophageal Reflux Disease, Hepatitis Musculoskeltal Medical History: Reports: Arthritis Denies: Gout Psychiatric Medical History: Reports: Attention Deficit Hyperactivity Disorder, Bipolar Disorder, Depression - Major depressive, Schizoaffective Disorder Hematology: Reports: Anemia, Bleeding Tendencies Past Surgical History Past Surgical History: Reports: Cardiac Catheterization, Other - Patient states he had left pleural effusion status post chest tube placemen Social/Family History - Social History Smoking Status: Unknown if Ever Smoked Frequency of Alcohol Use: None Hx Recreational Drug Use: No Drugs: None Hx Prescription Drug Abuse: No - Medication/Allergies Home Medications: Lurasidone HCl [Latuda] 20 mg PO QHS 10/11/18 Atomoxetine HCl [Strattera] 40 mg PO QAM 06/25/20 Paroxetine HCl [Paxil] 30 mg PO DAILY 06/25/20 Allergies/Adverse Reactions: No Known Allergies Allergy (Verified 06/25/20 05:14) Review of Systems ROS unobtainable: Due to endotracheal tube, Due to mental status Physical Exam Vital Signs: Temp Pulse Resp BP Pulse Ox 96.3 F L 77 16 107/64 100 06/25/20 10:00 06/25/20 10:13 06/25/20 10:13 06/25/20 10:13 06/25/20 12:00 Intake & Output 06/24/20 06/25/20 06/26/20 06:59 06:59 06:59 Intake Total 1000 58 Balance 1000 58 Weight 59.5 kg 59.5 kg Weight/Height Weight 59.5 kg Height 1.63 m General appearance: PRESENT: no acute distress, well-developed, well-nourished Head exam: PRESENT: atraumatic, normocephalic Eye exam: PRESENT: conjunctiva pink, EOMI, PERRLA. ABSENT: scleral icterus Neck exam: ABSENT: carotid bruit, JVD, lymphadenopathy, thyromegaly Respiratory exam: PRESENT: clear to auscultation nyasia. ABSENT: rales, rhonchi, wheezes Cardiovascular exam: PRESENT: RRR. ABSENT: diastolic murmur, rubs, systolic murmur GI/Abdominal exam: PRESENT: normal bowel sounds, soft. ABSENT: distended, guarding, mass, organolmegaly, rebound, tenderness Extremities exam: PRESENT: full ROM. ABSENT: calf tenderness, clubbing, pedal edema Neurological exam: PRESENT: altered, CN II-XII grossly intact. ABSENT: motor sensory deficit Psychiatric exam: ABSENT: homicidal ideation, suicidal ideation Skin exam: PRESENT: dry, intact, warm. ABSENT: cyanosis, rash Tubes/Lines: PRESENT: Endotracheal Tube Laboratory/Radiographs Laboratory Results: 06/25/20 05:03 06/25/20 05:03 06/25/20 06/25/20 06/25/20 05:03 05:03 05:03 WBC 10.4 RBC 4.41 Hgb 13.7 Hct 40.7 MCV 92 MCH 30.9 MCHC 33.5 RDW 14.4 H Plt Count 264 Seg Neutrophils % 53.2 Carbonic Acid HCO3/H2CO3 Ratio ABG pH ABG pCO2 ABG pO2 ABG HCO3 ABG O2 Saturation ABG Base Excess VBG pH VBG pCO2 VBG HCO3 VBG Base Excess FiO2 Sodium 135.6 L Potassium 5.0 Chloride 99 Carbon Dioxide 29 Anion Gap 8 BUN 8 Creatinine 0.76 Est GFR ( Amer) > 60 Glucose 282 H Lactic Acid 2.2 H Calcium 9.1 Total Bilirubin 0.6 AST 50 Alkaline Phosphatase 63 Total Protein 6.6 Albumin 4.2 Blood Type Antibody Screen 06/25/20 06/25/20 06/25/20 06:17 06:17 09:05 WBC RBC Hgb Hct MCV MCH MCHC RDW Plt Count Seg Neutrophils % Carbonic Acid 1.69 H HCO3/H2CO3 Ratio 17:1 ABG pH 7.33 L ABG pCO2 56.0 H ABG pO2 148.7 H ABG HCO3 29.1 H ABG O2 Saturation 98.7 H ABG Base Excess 2.1 VBG pH 7.20 L VBG pCO2 69.9 H* VBG HCO3 26.8 VBG Base Excess -2.6 FiO2 60% Sodium Potassium Chloride Carbon Dioxide Anion Gap BUN Creatinine Est GFR ( Amer) Glucose Lactic Acid Calcium Total Bilirubin AST Alkaline Phosphatase Total Protein Albumin Blood Type B POSITIVE Antibody Screen NEGATIVE 06/25/20 05:03 Troponin I < 0.012 NT-Pro-B Natriuret Pep 585 H Impressions: Chest X-Ray 06/25/20 05:14 IMPRESSION: Endotracheal tube tip in the lower trachea. All labs, radiographs, diagnostic studies and EKGs were personally reviewed: Yes In addition, reports of radiographic and diagnostic studies were read: Yes Critical Time Critical Time (minutes): 60 -: The care of a critically ill patient is dynamic. This note represents a static moment in the admission process. Orders and treatments may be given simultaneously and urgently, and time is not senior customer service representative of the treatment process. This patient requires Critical Care secondary to life threatening organ or limb dysfunction. Without Critical Care services, the patient is at risk for increased mortality and morbidity.
--- NOTE | 2020-06-26 10:16 | RADIOLOGY REPORT (SQ) ---
EXAM DESCRIPTION: CHEST SINGLE VIEW IMAGES COMPLETED DATE/TIME: 06/26/2020 5:56 am REASON FOR STUDY: ETT tube COMPARISON: 06/25/2020 EXAM PARAMETERS: NUMBER OF VIEWS: One view. TECHNIQUE: Single frontal radiographic view of the chest acquired. RADIATION DOSE: NA LIMITATIONS: None. FINDINGS: LUNGS AND PLEURA: Stable pulmonary exam demonstrating emphysematous changes. No focal con solidation, pleural effusion, or pneumothorax. MEDIASTINUM AND HILAR STRUCTURES: No masses. Contour normal. HEART AND VASCULAR STRUCTURES: Heart normal in size. Normal vasculature. BONES: No acute findings. HARDWARE: Endotracheal tube terminates approximately 6 mm cranial to the kali. Enteric tube projec ts subdiaphragmatically out of the imaged field of view. OTHER: No other significant finding. IMPRESSION: 1. Stable pulmonary exam. 2. Endotracheal tube terminates less than 1 cm cranial to the kali ; consider retracting 3 to 5 cm . Enteric tube terminates subdiaphragmatically out of the imaged field of view. TECHNICAL DOCUMENTATION: JOB ID: [id number] 2010 [employer]- All Rights Reserved Reading location - IP/workstation name: NA
[2020-06-26] MEDS: AZITHROMYCIN 500 MG in DEXTROSE 5%-WATER 250 ML IV SCH (10:39)
[2020-06-26 12:06] LABS: ARTERIAL BLOOD BASE EXCESS 5.2 mmol/L; ARTERIAL BLOOD H2CO3 1.26 mmol/L (1.05-1.35); ARTERIAL BLOOD HCO3 29.5 mmol/L (20-24); ARTERIAL BLOOD O2 SATURATION 95.1 % (94-98); ARTERIAL BLOOD PCO2 41.9 mmHg (35-45); ARTERIAL BLOOD PH 7.47 (7.35-7.45); ARTERIAL BLOOD TOTAL CO2 30.8 mmol/L (23-27)
[2020-06-26 12:07] LABS: ARTERIAL BLOOD FIO2 30%
--- NOTE | 2020-06-26 17:58 | PDOC CRITICAL CARE PROG REPORT ---
General Date:: 06/26/20 ICU Day:: 2 Ventilator Day:: 2 Hospital Day:: 2 Resuscitation Status: Full Code Events in the past 12 to 24 Hours:: This 59-year-old male was admitted on 06/25/2020 with increased shortness of breath. He was intubated in the emergency department for acute hypoxemic respiratory failure, after his SPO2 was noted to be in the 60s. He is known to have end-stage COPD and is on long-term oxygen therapy (4 LPM at baseline). 06/26: Remains intubated. On PRVC mode. Sedated with Versed and Precedex infusions along with intermittent morphine. ABG this morning: pH 7.42, PCO2 43, PO2 88 on FiO2 50%. Arousable. Follows commands. WBC 6.9. proBNP 481. Chest x-ray obtained this morning is compatible with pulmonary edema. Trach aspirate shows 3+ PMNs and 4+ gram-positive cocci in chains on Gram stain. On empiric Rocephin/azithromycin. Of note, the patient apparently has a significant psychiatric history. His home medication list includes Paxil, Strattera and Latuda, although these are unconfirmed medications. Review of systems relevant to events:: Respiratory: Shortness of breath end-stage COPD Cardiovascular: Congestive heart failure, coronary artery disease Reason for ICU Addmission:: Acute hypoxemic respiratory failure - Medications: Medications reviewed and adjusted accordingly: Yes Sedation:: Versed infusion, Precedex infusion, intermittent morphine Physical Exam Vital Signs: Temp Pulse Resp BP Pulse Ox 98.4 F 86 19 102/61 94 06/26/20 10:00 06/26/20 08:36 06/26/20 10:00 06/26/20 09:58 06/26/20 10:00 Intake & Output 06/25/20 06/26/20 06/27/20 06:59 06:59 06:59 Intake Total 1000 1524 585 Output Total 1750 285 Balance 1000 -226 300 Weight 59.5 kg 58.5 kg Weight/Height Weight 58.5 kg Height 1.63 m General appearance: PRESENT: no acute distress, thin, well-developed, well- nourished Head exam: PRESENT: atraumatic, normocephalic Eye exam: PRESENT: conjunctiva pink, EOMI, PERRLA. ABSENT: scleral icterus Mouth exam: PRESENT: moist, tongue midline Neck exam: ABSENT: carotid bruit, JVD, lymphadenopathy, thyromegaly Respiratory exam: PRESENT: clear to auscultation nyasia. ABSENT: rales, rhonchi, wheezes Cardiovascular exam: PRESENT: RRR. ABSENT: diastolic murmur, rubs, systolic murmur GI/Abdominal exam: PRESENT: normal bowel sounds, soft. ABSENT: distended, guarding, mass, organolmegaly, rebound, tenderness Extremities exam: PRESENT: full ROM. ABSENT: calf tenderness, clubbing, pedal edema Musculoskeletal exam: PRESENT: normal inspection. ABSENT: deformity Neurological exam: PRESENT: altered, reflexes normal, CN II-XII grossly intact. ABSENT: motor sensory deficit Psychiatric exam: ABSENT: agitated, anxious Skin exam: PRESENT: dry, intact, warm. ABSENT: cyanosis, rash Tubes/Lines: PRESENT: Endotracheal Tube Laboratory/Radiographs Laboratory Results: 06/26/20 06:15 06/26/20 06:15 06/25/20 06/26/20 06/26/20 17:15 04:22 06:15 WBC RBC Hgb Hct MCV MCH MCHC RDW Plt Count Seg Neutrophils % Carbonic Acid 1.24 1.30 HCO3/H2CO3 Ratio 20:1 20:1 ABG pH 7.40 7.42 ABG pCO2 41.2 43.1 ABG pO2 132.7 H 88.4 ABG HCO3 25.1 H 27.1 H ABG O2 Saturation 98.7 H 96.8 ABG Base Excess 0.3 2.3 FiO2 60% 50% Sodium Cancelled Potassium Cancelled Chloride Cancelled Carbon Dioxide Cancelled Anion Gap Cancelled BUN Cancelled Creatinine Cancelled Est GFR ( Amer) Cancelled Est GFR (Non-Af Amer) Cancelled Glucose Cancelled Calcium Cancelled Phosphorus 3.0 Magnesium 1.6 Total Bilirubin AST Alkaline Phosphatase Total Protein Albumin 06/26/20 06/26/20 06:15 06:15 WBC 6.9 RBC 4.05 L Hgb 12.3 L Hct 36.4 L MCV 90 MCH 30.4 MCHC 33.8 RDW 14.0 Plt Count 170 Seg Neutrophils % Not Reportable Carbonic Acid HCO3/H2CO3 Ratio ABG pH ABG pCO2 ABG pO2 ABG HCO3 ABG O2 Saturation ABG Base Excess FiO2 Sodium 134.5 L Potassium 4.4 Chloride 101 Carbon Dioxide 30 Anion Gap 4 L BUN 17 Creatinine 0.79 Est GFR ( Amer) > 60 Est GFR (Non-Af Amer) Glucose 174 H Calcium 8.7 Phosphorus Magnesium Total Bilirubin 0.3 AST 26 Alkaline Phosphatase 61 Total Protein 6.2 L Albumin 3.7 06/25/20 06/25/20 06/26/20 05:03 14:21 06:15 Troponin I < 0.012 < 0.012 NT-Pro-B Natriuret Pep 585 H 638 H 481 H All labs, radiographs, diagnostic studies and EKGs were personally reviewed: Yes In addition, reports of radiographic and diagnostic studies were read: Yes Assessment and Plan - Diagnosis (1) Acute on chronic respiratory failure with hypoxia and hypercapnia Is this a current diagnosis for this admission?: Yes Plan: Change ventilator mode from PRVC to SIMV. Follow-up ABG. Anticipate liberation from mechanical ventilatory support within 24 hours. (2) COPD exacerbation Is this a current diagnosis for this admission?: Yes Plan: Decrease Solu-Medrol to 60 mg IV every 12 hours. Continue albuterol/budesonide. On empiric Rocephin/azithromycin. (3) Systolic CHF, chronic Is this a current diagnosis for this admission?: Yes Plan: Furosemide 40 mg IV single dose today. (4) Lactic acidosis Is this a current diagnosis for this admission?: Yes Plan: Repeat lactate. Critical Time Critical Time (minutes): 60 Level of Care: ICU -: 1. The care of a critical patient is a dynamic process. This note is a residential sales representative synopsis but static in nature. The timeframe for treatments given in order is not necessarily the actual time these treatments may have been done. 2. This patient requires critical care secondary to ongoing requirements for therapy not offered or safe outside the critical care environment. Transfer to a lower level of care will result in altered life or limb morbidity and mortality. 3. Multidisciplinary rounds completed. 4. ABCDE bundle addressed.
[2020-06-26 19:06] LABS: ARTERIAL BLOOD BASE EXCESS 5.6 mmol/L; ARTERIAL BLOOD H2CO3 1.27 mmol/L (1.05-1.35); ARTERIAL BLOOD HCO3 29.9 mmol/L (20-24); ARTERIAL BLOOD O2 SATURATION 95.4 % (94-98); ARTERIAL BLOOD PCO2 42.2 mmHg (35-45); ARTERIAL BLOOD PH 7.47 (7.35-7.45); ARTERIAL BLOOD PO2 72.9 mmHg (80-100); ARTERIAL BLOOD TOTAL CO2 31.2 mmol/L (23-27)
[2020-06-26 19:07] LABS: ARTERIAL BLOOD FIO2 30%
[2020-06-27] MEDS: MIDAZOLAM HCL 50 MG/100 ML RTUINJ IV PRN ×2 (01:09→06:50)
[2020-06-27] MEDS: MORPHINE SULFATE 10 MG/ML INJ IV SCH ×3 (01:12→09:30)
[2020-06-27] MEDS: ALBUTEROL SULFATE 0.083% NEB 2.5 MG/3 ML AMPUL NEB SCH ×4 (01:28→19:53)
[2020-06-27 04:36] LABS: BLOOD UREA NITROGEN 27 mg/dL (7-20); CALCIUM 8.8 mg/dL (8.4-10.2); GLUCOSE 151 mg/dL (75-110); POTASSIUM 4.5 mmol/L (3.6-5.0)
[2020-06-27 04:41] LABS: ANION GAP 6 (5-19); CARBON DIOXIDE 28 mmol/L (22-30); CHLORIDE 99 mmol/L (98-107)
[2020-06-27] MEDS: DEXMEDETOMIDINE IN 0.9 % NACL 400 MCG/100 ML RTUPB IV PRN (04:56)
[2020-06-27] MEDS: HEPARIN SOD (PORCINE) 5,000 UNIT/ML 1 ML VIAL SUBCUT SCH ×3 (05:11→21:35)
[2020-06-27 05:47] LABS: ARTERIAL BLOOD FIO2 30%; ARTERIAL BLOOD H2CO3 1.16 mmol/L (1.05-1.35); ARTERIAL BLOOD HCO3 27.7 mmol/L (20-24); ARTERIAL BLOOD O2 SATURATION 94.1 % (94-98); ARTERIAL BLOOD PCO2 38.6 mmHg (35-45); ARTERIAL BLOOD PH 7.47 (7.35-7.45); ARTERIAL BLOOD PO2 65.2 mmHg (80-100); ARTERIAL BLOOD TOTAL CO2 28.9 mmol/L (23-27)
[2020-06-27] MEDS: BUDESONIDE NEB 0.25 MG/2 ML AMPUL NEB SCH ×2 (08:56→19:53)
[2020-06-27 09:10] LABS: ARTERIAL BLOOD BASE EXCESS 4.6 mmol/L; ARTERIAL BLOOD H2CO3 1.18 mmol/L (1.05-1.35); ARTERIAL BLOOD HCO3 28.4 mmol/L (20-24); ARTERIAL BLOOD O2 SATURATION 93.8 % (94-98); ARTERIAL BLOOD PCO2 39.2 mmHg (35-45); ARTERIAL BLOOD PH 7.48 (7.35-7.45); ARTERIAL BLOOD PO2 63.9 mmHg (80-100); ARTERIAL BLOOD TOTAL CO2 29.6 mmol/L (23-27)
[2020-06-27 09:11] LABS: ARTERIAL BLOOD FIO2 30%
[2020-06-27] MEDS: ASPIRIN 81 MG TABLET, CHEWABLE NG SCH (09:30)
[2020-06-27] MEDS: FAMOTIDINE INJ/PF 20 MG/2 ML SDV IV SCH ×2 (09:30→21:35)
[2020-06-27] MEDS: CEFTRIAXONE 1 GM/D5W RTU 1 GM/50 ML RTUPB IV SCH (09:30)
[2020-06-27] MEDS: METHYLPREDNISOLONE INJ 125 MG/2 ML SDV IV SCH ×2 (09:30→21:33)
[2020-06-27] MEDS: METOPROLOL TARTRATE 25 MG TABLET PO SCH ×2 (09:30→22:00)
[2020-06-27] MEDS ORDERED: FUROSEMIDE INJ/PF 40 MG/4 ML SDV ONE (09:54)
[2020-06-27] MEDS ORDERED: FUROSEMIDE INJ/PF 40 MG/4 ML SDV IV ONE (10:15)
[2020-06-27] MEDS: AZITHROMYCIN 500 MG in DEXTROSE 5%-WATER 250 ML IV SCH (10:50)
--- NOTE | 2020-06-27 10:56 | RADIOLOGY REPORT (SQ) ---
EXAM DESCRIPTION: CHEST SINGLE VIEW IMAGES COMPLETED DATE/TIME: 06/27/2020 10:26 am REASON FOR STUDY: ET tube COMPARISON: 06/26/2020 EXAM PARAMETERS: NUMBER OF VIEWS: One view. TECHNIQUE: Single frontal radiographic view of the chest acquired. RADIATION DOSE: NA LIMITATIONS: None. FINDINGS: LUNGS AND PLEURA: Stable pulmonary exam demonstrating marked emphysematous changes without focal consolidation, pleural effusion, or pneumothorax. MEDIASTINUM AND HILAR STRUCTURES: No masses. Contour normal. HEART AND VASCULAR STRUCTURES: Heart normal in size. Normal vasculature. BONES: No acute findings. HARDWARE: Interval retraction of the endotracheal tube, which now terminates approximately 5 cm crani al to the kali. Enteric tube and proximal port project subdiaphragmatically. OTHER: No other significant finding. IMPRESSION: 1. Stable pulmonary exam. 2. Endotracheal and enteric tubes without evidence of complication. TECHNICAL DOCUMENTATION: JOB ID: [id number] 2010 [employer]- All Rights Reserved Reading location - IP/workstation name: [email or web address]
[2020-06-27] MEDS: MORPHINE SULFATE 10 MG/ML INJ IV PRN ×2 (15:50→21:34)
--- NOTE | 2020-06-27 17:29 | PDOC CRITICAL CARE PROG REPORT ---
General Date:: 06/27/20 ICU Day:: 3 Ventilator Day:: 3 Hospital Day:: 3 Resuscitation Status: Full Code Events in the past 12 to 24 Hours:: This 59-year-old male was admitted on 06/25/2020 with increased shortness of breath. He was intubated in the emergency department for acute hypoxemic respiratory failure, after his SPO2 was noted to be in the 60s. He is known to have end-stage COPD and is on long-term oxygen therapy (4 LPM at baseline). 06/26: Remains intubated. On PRVC mode. Sedated with Versed and Precedex infusions along with intermittent morphine. ABG this morning: pH 7.42, PCO2 43, PO2 88 on FiO2 50%. Arousable. Follows commands. WBC 6.9. proBNP 481. Chest x-ray obtained this morning is compatible with pulmonary edema. Trach aspirate shows 3+ PMNs and 4+ gram-positive cocci in chains on Gram stain. On empiric Rocephin/azithromycin. Of note, the patient apparently has a significant psychiatric history. His home medication list includes Paxil, Strattera and Latuda, although these are unconfirmed medications. 06/27: remains intubated. Tolerated PSV 10/8 all day and night. Sedated with Versed gtt, Precedex gtt and intermittent morphine. Follows commands. Switched to PSV 5/8, in anticipation of liberation from vent today. Had 17-beat run of NSVT, spontaneously converted to NSR. Review of systems relevant to events:: Respiratory: Shortness of breath end-stage COPD Cardiovascular: Congestive heart failure, coronary artery disease Reason for ICU Addmission:: Acute hypoxemic respiratory failure - Medications: Medications reviewed and adjusted accordingly: Yes Sedation:: Versed infusion, Precedex infusion, intermittent morphine Physical Exam Vital Signs: Temp Pulse Resp BP Pulse Ox 98.2 F 88 20 119/71 90 L 06/27/20 06:00 06/27/20 08:55 06/27/20 08:55 06/27/20 05:55 06/27/20 08:55 Intake & Output 06/26/20 06/27/20 06/28/20 06:59 06:59 06:59 Intake Total 1524 2185 42 Output Total 1750 2560 90 Balance -226 -375 -48 Weight 58.5 kg 58.5 kg Weight/Height Weight 58.5 kg Height 1.63 m General appearance: PRESENT: no acute distress, well-developed, well-nourished Head exam: PRESENT: atraumatic, normocephalic Eye exam: PRESENT: conjunctiva pink, EOMI, PERRLA. ABSENT: scleral icterus Mouth exam: PRESENT: moist, tongue midline Neck exam: ABSENT: carotid bruit, JVD, lymphadenopathy, thyromegaly Respiratory exam: PRESENT: rales, rhonchi. ABSENT: prolonged expiratory phas, wheezes Cardiovascular exam: PRESENT: RRR. ABSENT: diastolic murmur, rubs, systolic murmur Pulses: PRESENT: normal dorsalis pedis pul GI/Abdominal exam: PRESENT: normal bowel sounds, soft. ABSENT: distended, guarding, mass, organolmegaly, rebound, tenderness Gentrourinary exam: PRESENT: indwelling catheter Extremities exam: PRESENT: full ROM. ABSENT: calf tenderness, clubbing, pedal edema Neurological exam: PRESENT: awake, CN II-XII grossly intact. ABSENT: motor sensory deficit Psychiatric exam: ABSENT: agitated, anxious Skin exam: PRESENT: dry, intact, warm. ABSENT: cyanosis, rash Tubes/Lines: PRESENT: Endotracheal Tube Laboratory/Radiographs Laboratory Results: 06/26/20 06:15 06/27/20 03:57 06/26/20 06/26/20 06/26/20 11:50 12:43 18:38 Carbonic Acid 1.26 1.27 HCO3/H2CO3 Ratio 23:1 23:1 ABG pH 7.47 H 7.47 H ABG pCO2 41.9 42.2 ABG pO2 71.0 L 72.9 L ABG HCO3 29.5 H 29.9 H ABG O2 Saturation 95.1 95.4 ABG Base Excess 5.2 5.6 FiO2 30% 30% Sodium Potassium Chloride Carbon Dioxide Anion Gap BUN Creatinine Est GFR ( Amer) Glucose Lactic Acid 2.4 H Calcium Magnesium 06/27/20 06/27/20 06/27/20 03:57 04:52 08:54 Carbonic Acid 1.16 1.18 HCO3/H2CO3 Ratio 23:1 24:1 ABG pH 7.47 H 7.48 H ABG pCO2 38.6 39.2 ABG pO2 65.2 L 63.9 L ABG HCO3 27.7 H 28.4 H ABG O2 Saturation 94.1 93.8 L ABG Base Excess 4.0 4.6 FiO2 30% 30% Sodium 133.3 L Potassium 4.5 Chloride 99 Carbon Dioxide 28 Anion Gap 6 BUN 27 H Creatinine 0.80 Est GFR ( Amer) > 60 Glucose 151 H Lactic Acid Calcium 8.8 Magnesium 3.1 H D 06/25/20 06/25/20 06/26/20 05:03 14:21 06:15 Troponin I < 0.012 < 0.012 NT-Pro-B Natriuret Pep 585 H 638 H 481 H 06/27/20 08:55 Troponin I < 0.012 NT-Pro-B Natriuret Pep Impressions: Chest X-Ray 06/26/20 05:00 IMPRESSION: 1. Stable pulmonary exam. 2. Endotracheal tube terminates less than 1 cm cranial to the kali ; consider retracting 3 to 5 cm. Enteric tube terminates subdiaphragmatically out of the imaged field of view. All labs, radiographs, diagnostic studies and EKGs were personally reviewed: Yes In addition, reports of radiographic and diagnostic studies were read: Yes Assessment and Plan - Diagnosis (1) Acute on chronic respiratory failure with hypoxia and hypercapnia Is this a current diagnosis for this admission?: Yes Plan: Extubate to 6 LPM. Titrate supplemental oxygen as needed to maintain SpO2 88- 93%. Stop sedation. Will need to restart home psych meds, as tolerated. (2) Acute decompensated heart failure Is this a current diagnosis for this admission?: Yes Plan: CXR today. Furosemide 40 mg IV single dose again today. I suspect his hyponatremia is secondary to acute heart failure. Will check TSH for completeness. (3) COPD exacerbation Is this a current diagnosis for this admission?: Yes Plan: Continue Solu-Medrol to 60 mg IV every 12 hours. Continue albuterol/budesonide. On empiric Rocephin/azithromycin. (4) Systolic CHF, chronic Is this a current diagnosis for this admission?: Yes Plan: CXR today. (5) Lactic acidosis Is this a current diagnosis for this admission?: Yes Plan: Repeat lactate. (6) NSVT (nonsustained ventricular tachycardia) Is this a current diagnosis for this admission?: Yes Plan: Keep K 4, Mg 2. Check troponin. 12-lead EKG. Critical Time Critical Time (minutes): 60 Level of Care: ICU -: 1. The care of a critical patient is a dynamic process. This note is a medical office representative synopsis but static in nature. The timeframe for treatments gi jennifer in order is not necessarily the actual time these treatments may have been done. 2. This patient requires critical care secondary to ongoing requirements for therapy not offered or safe outside the critical care environment. Transfer to a lower level of care will result in altered life or limb morbidity and mortality. 3. Multidisciplinary rounds completed. 4. ABCDE bundle addressed.
--- NOTE | 2020-06-27 20:12 | EKG REPORT ---
SEVERITY:- ABNORMAL ECG - SINUS RHYTHM PROBABLE LEFT ATRIAL ABNORMALITY LATERAL INFARCT, AGE INDETERMINATE : Confirmed by: Luis Angel Moore MD 27-Jun-2020 20:11:41
[2020-06-27] MEDS ORDERED: LORATADINE 10 MG TABLET PO SCH (22:00)
[2020-06-28] MEDS: GABAPENTIN 300 MG CAPSULE PO SCH ×5 (01:17→22:23)
[2020-06-28] MEDS: ALBUTEROL SULFATE 0.083% NEB 2.5 MG/3 ML AMPUL NEB SCH ×4 (02:38→20:37)
[2020-06-28 04:45] LABS: HEMATOCRIT 41.5 % (37.9-51.0); HEMOGLOBIN 13.9 g/dL (13.5-17.0); MEAN CORPUSCULAR HEMOGLOBIN 29.9 pg (27.0-33.4); MEAN CORPUSCULAR HGB CONC 33.4 g/dL (32.0-36.0); MEAN CORPUSCULAR VOLUME 89 fl (80-97); PLATELET COUNT 243 10^3/uL (150-450); RED BLOOD COUNT 4.64 10^6/uL (4.35-5.55); RED CELL DISTRIBUTION WIDTH 14.2 % (11.5-14.0)
[2020-06-28 05:11] LABS: WHITE BLOOD COUNT 15.1 10^3/uL (4.0-10.5)
[2020-06-28 05:12] LABS: ABSOLUTE LYMPHOCYTES# (MANUAL) 0.5 10^3/uL (0.5-4.7); ABSOLUTE MONOCYTES # (MANUAL) 0.9 10^3/uL (0.1-1.4); BAND NEUTROPHILS % (MANUAL) 2 % (3-5); BASOPHILS % (MANUAL) 0 % (0-2); EOSINOPHILS % (MANUAL) 0 % (0-6); LYMPHOCYTES % (MANUAL) 3 % (13-45); MONOCYTES % (MANUAL) 6 % (3-13); SEGMENTED NEUTROPHILS % (MAN) 89 % (42-78); TOTAL CELLS COUNTED 100
[2020-06-28 05:13] LABS: PLATELET COMMENT ADEQUATE; RBC MORPHOLOGY COMMENT NORMO-CYTIC/CHROMIC
[2020-06-28 05:29] LABS: ANION GAP 8 (5-19); BLOOD UREA NITROGEN 44 mg/dL (7-20); CALCIUM 9.5 mg/dL (8.4-10.2); CARBON DIOXIDE 29 mmol/L (22-30); CHLORIDE 98 mmol/L (98-107); GLUCOSE 123 mg/dL (75-110); POTASSIUM 4.7 mmol/L (3.6-5.0)
[2020-06-28] MEDS: HEPARIN SOD (PORCINE) 5,000 UNIT/ML 1 ML VIAL SUBCUT SCH ×3 (05:50→22:26)
--- NOTE | 2020-06-28 08:16 | RADIOLOGY REPORT (SQ) ---
EXAM DESCRIPTION: CHEST SINGLE VIEW IMAGES COMPLETED DATE/TIME: 06/28/2020 6:10 am REASON FOR STUDY: dyspnea COMPARISON: 06/27/2020 EXAM PARAMETERS: NUMBER OF VIEWS: One view. TECHNIQUE: Single frontal radiographic view of the chest acquired. RADIATION DOSE: NA LIMITATIONS: None. FINDINGS: LUNGS AND PLEURA: The patient has been extubated. NG tube removed. Minimal right basilar airspace disease most likely atelectasis. There is a right apical pneumothorax approximately 5%. T his is new from prior study. MEDIASTINUM AND HILAR STRUCTURES: No masses. Contour normal. HEART AND VASCULAR STRUCTURES: Heart normal in size. Normal vasculature. BONES: No acute findings. HARDWARE: None in the chest. OTHER: No other significant finding. IMPRESSION: 1. New right apical pneumothorax approximately 5%. 2. The patient has been extubated. 3. Right basilar airspace disease most likely atelectasis. COMMENT: This report was called to Marianne Rangel RN at08:09 on 06/28/2020. TECHNICAL DOCUMENTATION: JOB ID: [id number] 2010 [employer]- All Rights Reserved Reading location - IP/workstation name: [email or web address]
[2020-06-28] MEDS: BUDESONIDE NEB 0.25 MG/2 ML AMPUL NEB SCH ×2 (08:17→20:36)
[2020-06-28] MEDS: MORPHINE SULFATE 10 MG/ML INJ IV PRN (09:23)
[2020-06-28] MEDS: LORATADINE 10 MG TABLET PO SCH (09:27)
[2020-06-28] MEDS: ASPIRIN 81 MG TABLET, CHEWABLE NG SCH (09:27)
[2020-06-28] MEDS: LISINOPRIL 10 MG TABLET PO SCH (09:27)
[2020-06-28] MEDS: METOPROLOL SUCCINATE 25 MG TAB.SR.24H PO SCH (09:27)
[2020-06-28] MEDS ORDERED: PREDNISONE 20 MG TABLET ONE (09:31)
[2020-06-28] MEDS: PREDNISONE 20 MG TABLET PO SCH (09:44)
[2020-06-28] MEDS: CEFTRIAXONE 1 GM/D5W RTU 1 GM/50 ML RTUPB IV SCH (09:47)
[2020-06-28] MEDS: FLUTICASONE NASAL SPRAY 50 MCG/SPRY 120 SPRAY/16 GM NASL SCH ×2 (09:50→22:26)
[2020-06-28] MEDS: AZITHROMYCIN 500 MG in DEXTROSE 5%-WATER 250 ML IV SCH (09:50)
[2020-06-28] MEDS ORDERED: (PENDING PHARMACY ID) (Tiotropium Br/Olodaterol Hcl [Stiolto Respimat Inhal Spray] 2 PUFF) IH SCH (10:00)
--- NOTE | 2020-06-28 12:19 | PDOC CRITICAL CARE PROG REPORT ---
General Date:: 06/28/20 ICU Day:: 3 Hospital Day:: 3 Resuscitation Status: Full Code Events in the past 12 to 24 Hours:: Respiratory status improved. Still a bit delirious. Review of systems relevant to events:: Respiratory, neurological. Reason for ICU Addmission:: Acute hypoxemic respiratory failure,intubated, now resolved. - Medications: Medications reviewed and adjusted accordingly: Yes Vasopressors:: None Sedation:: None Physical Exam Vital Signs: Temp Pulse Resp BP Pulse Ox 98.6 F 66 24 H 154/83 H 94 06/28/20 06:00 06/28/20 08:17 06/28/20 08:17 06/28/20 05:52 06/28/20 08:17 Intake & Output 06/27/20 06/28/20 06/29/20 06:59 06:59 06:59 Intake Total 2185 476 Output Total 2560 2400 Balance -375 -1924 Weight 58.5 kg 56.4 kg Weight/Height Weight 56.4 kg Height 5 ft 4 in General appearance: PRESENT: no acute distress, cooperative, thin Head exam: PRESENT: atraumatic, normocephalic Eye exam: PRESENT: conjunctiva pink, EOMI, PERRLA. ABSENT: scleral icterus Ear exam: PRESENT: normal external ear exam Mouth exam: PRESENT: moist, tongue midline Respiratory exam: PRESENT: clear to auscultation nyasia, decreased breath sounds. ABSENT: rales, rhonchi, wheezes Cardiovascular exam: PRESENT: RRR. ABSENT: diastolic murmur, rubs, systolic murmur GI/Abdominal exam: PRESENT: normal bowel sounds, soft. ABSENT: distended, guarding, mass, organolmegaly, rebound, tenderness Rectal exam: PRESENT: deferred Extremities exam: PRESENT: full ROM. ABSENT: calf tenderness, clubbing, pedal edema Musculoskeletal exam: PRESENT: normal inspection Neurological exam: PRESENT: alert, altered, awake, oriented to person, oriented to place, CN II-XII grossly intact Psychiatric exam: PRESENT: agitated - At times Skin exam: PRESENT: dry, intact, warm. ABSENT: cyanosis, rash Laboratory/Radiographs Laboratory Results: 06/28/20 04:27 06/28/20 04:27 06/27/20 06/28/20 06/28/20 03:57 04:27 04:27 WBC 15.1 H D RBC 4.64 Hgb 13.9 Hct 41.5 MCV 89 MCH 29.9 MCHC 33.4 RDW 14.2 H Plt Count 243 Seg Neutrophils % Not Reportable Sodium 135.0 L Potassium 4.7 Chloride 98 Carbon Dioxide 29 Anion Gap 8 BUN 44 H Creatinine 0.92 Est GFR ( Amer) > 60 Glucose 123 H Calcium 9.5 Magnesium 2.5 H TSH 0.08 L 06/25/20 16:15 Tracheal Aspirate Gram Stain - Final 06/25/20 16:15 Tracheal Aspirate Sputum Culture - Final Haemophilus Influenzae Normal Felicity 06/25/20 06/25/20 06/26/20 05:03 14:21 06:15 Troponin I < 0.012 < 0.012 NT-Pro-B Natriuret Pep 585 H 638 H 481 H 06/27/20 08:55 Troponin I < 0.012 NT-Pro-B Natriuret Pep Impressions: Chest X-Ray 06/28/20 05:00 IMPRESSION: 1. New right apical pneumothorax approximately 5%. 2. The patient has been extubated. 3. Right basilar airspace disease most likely atelectasis. EKG: NSR, old lateral infarct. All labs, radiographs, diagnostic studies and EKGs were personally reviewed: Yes In addition, reports of radiographic and diagnostic studies were read: Yes Assessment and Plan - Diagnosis (1) Acute respiratory failure with hypoxia Is this a current diagnosis for this admission?: Yes Plan: His initial oxygen saturation was said to be 60%. It is not known if this is real or an SvO2. Hypercarbia not assesses due to lack of ABG. (2) Acute exacerbation of chronic obstructive pulmonary disease (COPD) Is this a current diagnosis for this admission?: Yes Plan: His lungs have a pronounced COPD pattern and he is on 4L O2 at home indicating a rather severe COPD. (3) Bipolar 1 disorder with moderate jovi Is this a current diagnosis for this admission?: Yes Plan: His delirium is probably multifactorial. This being one source. he others could be sedation, withdrawal of an unknown substance. Narcotic WD usually does not produce a delirium. (4) Congestive heart failure Is this a current diagnosis for this admission?: Yes Plan: There is no evidence of CHF. (5) Coronary artery disease Qualifiers: Coronary Disease-Associated Artery/Lesion type: [place] artery [place] vs. transplanted heart: [place] heart Associated angina: without angina Qualified Code(s): I25.10 - Atherosclerotic heart disease of [place] coronary artery without angina pectoris Is this a current diagnosis for this admission?: Yes Plan: Currently inactive. Plan Summary: Stable to downgrade to medical floor. Active process is delirium, not far from baseline. Critical Time Critical Time (minutes): 30 Level of Care: IMCU Anticipated discharge: Home Anticipated DC Timeframe: within 36 hours -: 1. The care of a critical patient is a dynamic process. This note is a medical service representative synopsis but static in nature. The timeframe for treatments given in order is not necessarily the actual time these treatments may have been done. 2. This patient requires critical care secondary to ongoing requirements for therapy not offered or safe outside the critical care environment. Transfer to a lower level of care will result in altered life or limb morbidity and mortality. 3. Multidisciplinary rounds completed. 4. ABCDE bundle addressed.
[2020-06-28] MEDS: LORAZEPAM INJ 2 MG/1 ML VIAL IV PRN (22:45)
[2020-06-29] MEDS: ALBUTEROL SULFATE 0.083% NEB 2.5 MG/3 ML AMPUL NEB SCH ×4 (02:13→20:07)
[2020-06-29] MEDS: MORPHINE SULFATE 10 MG/ML INJ IV PRN ×2 (03:20→07:48)
[2020-06-29 04:27] LABS: ABSOLUTE LYMPHOCYTES (AUTO) 1.1 10^3/uL (0.5-4.7); ABSOLUTE MONOCYTES (AUTO) 0.9 10^3/uL (0.1-1.4); ABSOLUTE NEUT (AUTO) 7.4 10^3/uL (1.7-8.2); BASOPHILS % (AUTO) 0.4 % (0-2); EOSINOPHILS % (AUTO) 0.1 % (0-6); HEMOGLOBIN 12.9 g/dL (13.5-17.0); LYMPHOCYTES % (AUTO) 11.6 % (13-45); MEAN CORPUSCULAR HEMOGLOBIN 30.2 pg (27.0-33.4); MEAN CORPUSCULAR VOLUME 89 fl (80-97); MONOCYTES % (AUTO) 9.4 % (3-13); PLATELET COUNT 177 10^3/uL (150-450); RED BLOOD COUNT 4.28 10^6/uL (4.35-5.55); RED CELL DISTRIBUTION WIDTH 13.9 % (11.5-14.0); SEGMENTED NEUTROPHILS % (AUTO) 78.5 % (42-78); TOTAL CELLS COUNTED % (AUTO) 100 %; WHITE BLOOD COUNT 9.4 10^3/uL (4.0-10.5)
[2020-06-29] MEDS: GABAPENTIN 300 MG CAPSULE PO SCH ×3 (05:37→22:02)
[2020-06-29] MEDS: HEPARIN SOD (PORCINE) 5,000 UNIT/ML 1 ML VIAL SUBCUT SCH ×3 (05:38→22:03)
--- NOTE | 2020-06-29 08:37 | PDOC CRITICAL CARE PROG REPORT ---
General Date:: 06/29/20 Hospital Day:: 4 Resuscitation Status: Full Code Events in the past 12 to 24 Hours:: Still delirious Review of systems relevant to events:: Neurological, respiratory Reason for ICU Addmission:: Acute hypoxemic respiratory failure,intubated, now resolved. - Medications: Medications reviewed and adjusted accordingly: Yes Vasopressors:: None Sedation:: None Physical Exam Vital Signs: Temp Pulse Resp BP Pulse Ox 98.5 F 73 17 117/74 94 06/29/20 07:24 06/29/20 07:24 06/29/20 07:24 06/29/20 07:24 06/29/20 07:24 Intake & Output 06/28/20 06/29/20 06/30/20 06:59 06:59 06:59 Intake Total 494 Output Total 2400 1175 Balance -1906 -1175 Weight 56.4 kg 58.8 kg Weight/Height Weight 58.8 kg Height 5 ft 4 in General appearance: PRESENT: no acute distress, thin Head exam: PRESENT: atraumatic, normocephalic Eye exam: PRESENT: conjunctiva pink, EOMI, PERRLA. ABSENT: scleral icterus Ear exam: PRESENT: normal external ear exam Mouth exam: PRESENT: moist, tongue midline Respiratory exam: PRESENT: clear to auscultation nyasia, decreased breath sounds. ABSENT: rales, rhonchi, wheezes Cardiovascular exam: PRESENT: RRR. ABSENT: diastolic murmur, rubs, systolic murmur GI/Abdominal exam: PRESENT: normal bowel sounds, soft. ABSENT: distended, guarding, mass, organolmegaly, rebound, tenderness Rectal exam: PRESENT: deferred Extremities exam: PRESENT: full ROM. ABSENT: calf tenderness, clubbing, pedal edema Neurological exam: PRESENT: alert, altered, awake, CN II-XII grossly intact Psychiatric exam: PRESENT: agitated - At times Skin exam: PRESENT: dry, intact, warm. ABSENT: cyanosis, rash Laboratory/Radiographs Laboratory Results: 06/29/20 04:14 06/28/20 04:27 06/29/20 04:14 WBC 9.4 RBC 4.28 L Hgb 12.9 L Hct 38.0 MCV 89 MCH 30.2 MCHC 34.0 RDW 13.9 Plt Count 177 Seg Neutrophils % 78.5 H 06/25/20 16:15 Tracheal Aspirate Gram Stain - Final 06/25/20 16:15 Tracheal Aspirate Sputum Culture - Final Haemophilus Influenzae Normal Felicity 06/25/20 06/25/20 06/26/20 05:03 14:21 06:15 Troponin I < 0.012 < 0.012 NT-Pro-B Natriuret Pep 585 H 638 H 481 H 06/27/20 08:55 Troponin I < 0.012 NT-Pro-B Natriuret Pep Impressions: Chest X-Ray 06/28/20 05:00 IMPRESSION: 1. New right apical pneumothorax approximately 5%. 2. The patient has been extubated. 3. Right basilar airspace disease most likely atelectasis. All labs, radiographs, diagnostic studies and EKGs were personally reviewed: Yes In addition, reports of radiographic and diagnostic studies were read: Yes Assessment and Plan - Diagnosis (1) Acute respiratory failure with hypoxia Is this a current diagnosis for this admission?: Yes Plan: Resolved. Back to his baseline (2) Acute exacerbation of chronic obstructive pulmonary disease (COPD) Is this a current diagnosis for this admission?: Yes Plan: No wheezing. Steroids cut down (3) Bipolar 1 disorder with moderate jovi Is this a current diagnosis for this admission?: Yes Plan: This may be contributing to his mental status. (4) Congestive heart failure Qualifiers: Heart failure chronicity: unspecified Is this a current diagnosis for this admission?: Yes Plan: Resolved (5) Coronary artery disease Qualifiers: Coronary Disease-Associated Artery/Lesion type: [place] artery [place] vs. transplanted heart: [place] heart Associated angina: without angina Qualified Code(s): I25.10 - Atherosclerotic heart disease of [place] coronary artery without angina pectoris Is this a current diagnosis for this admission?: Yes Plan: Inactive. (6) Pneumonia Is this a current diagnosis for this admission?: No Plan: Considered on admission but not clinically. He is growing H. flu bacteria which is a normal finding in smokers. No PNA. (7) Delirium Is this a current diagnosis for this admission?: Yes Plan: This seems like it is multifactorial with illness, intubation and underlying psych issues. However he does resemble a withdrawal picture. He does have a hx of polysubstance abuse but there is no obvious source in the record. Not drinking for many years. This could be a benzodiazepine WD, as he did calm down overnight with ativan. Psych input may be needed. Plan Summary: Transfer to medical floor. He may be discharged when his mental status returns to normal. Critical Time Critical Time (minutes): 25 Level of Care: MEDICAL Anticipated discharge: Home with Homehealth Anticipated DC Timeframe: Other -: 1. The care of a critical patient is a dynamic process. This note is a telephone sales representative synopsis but static in nature. The timeframe for treatments given in order is not necessarily the actual time these treatments may have been done. 2. This patient requires critical care secondary to ongoing requirements for therapy not offered or safe outside the critical care environment. Transfer to a lower level of care will result in altered life or limb morbidity and mortality. 3. Multidisciplinary rounds completed. 4. ABCDE bundle addressed.
[2020-06-29] MEDS: BUDESONIDE NEB 0.25 MG/2 ML AMPUL NEB SCH ×2 (09:38→20:07)
[2020-06-29] MEDS: PREDNISONE 20 MG TABLET PO SCH (10:59)
[2020-06-29] MEDS: ASPIRIN 81 MG TABLET, CHEWABLE NG SCH (10:59)
[2020-06-29] MEDS: METOPROLOL SUCCINATE 25 MG TAB.SR.24H PO SCH (10:59)
[2020-06-29] MEDS: FLUTICASONE NASAL SPRAY 50 MCG/SPRY 120 SPRAY/16 GM NASL SCH ×2 (11:00→22:03)
[2020-06-29] MEDS: LORATADINE 10 MG TABLET PO SCH (11:00)
[2020-06-29] MEDS: LISINOPRIL 10 MG TABLET PO SCH (11:00)
[2020-06-29] MEDS: AZITHROMYCIN 500 MG in DEXTROSE 5%-WATER 250 ML IV SCH (11:01)
[2020-06-29] MEDS: OXYCODONE HCL IR 5 MG TABLET PO PRN ×2 (11:35→18:03)
[2020-06-29] MEDS: CEFTRIAXONE 1 GM/D5W RTU 1 GM/50 ML RTUPB IV SCH (11:41)
[2020-06-29] MEDS: LORAZEPAM INJ 2 MG/1 ML VIAL IV PRN (22:02)
[2020-06-30] MEDS: OXYCODONE HCL IR 5 MG TABLET PO PRN ×2 (01:36→07:48)
[2020-06-30] MEDS: ALBUTEROL SULFATE 0.083% NEB 2.5 MG/3 ML AMPUL NEB SCH ×3 (02:38→14:22)
[2020-06-30] MEDS: GABAPENTIN 300 MG CAPSULE PO SCH (06:09)
[2020-06-30] MEDS: HEPARIN SOD (PORCINE) 5,000 UNIT/ML 1 ML VIAL SUBCUT SCH (06:11)
[2020-06-30] MEDS: BUDESONIDE NEB 0.25 MG/2 ML AMPUL NEB SCH (07:59)
[2020-06-30] MEDS: METOPROLOL SUCCINATE 25 MG TAB.SR.24H PO SCH (10:11)
[2020-06-30] MEDS: ASPIRIN 81 MG TABLET, CHEWABLE NG SCH (10:11)
[2020-06-30] MEDS: LORATADINE 10 MG TABLET PO SCH (10:11)
[2020-06-30] MEDS: PREDNISONE 20 MG TABLET PO SCH (10:12)
[2020-06-30] MEDS: CEFTRIAXONE 1 GM/D5W RTU 1 GM/50 ML RTUPB IV SCH (10:12)
[2020-06-30] MEDS: LISINOPRIL 10 MG TABLET PO SCH (10:12)
[2020-06-30] MEDS: FLUTICASONE NASAL SPRAY 50 MCG/SPRY 120 SPRAY/16 GM NASL SCH (10:13)
[2020-06-30] MEDS: AZITHROMYCIN 500 MG in DEXTROSE 5%-WATER 250 ML IV SCH (11:04)
[2020-06-30 13:12] VITALS: BP 117/74
--- NOTE | 2020-06-30 13:42 | PDOC DISCHARGE SUMMARY ---
Impression - Admit/DC Date/PCP Admission Date/Primary Care Provider: 06/25/20 06:32 CHRISTINE ADEN DO Discharge Date: 06/30/20 - Discharge Diagnosis (1) Acute exacerbation of chronic obstructive pulmonary disease (COPD) Is this a current diagnosis for this admission?: Yes (2) Acute on chronic systolic and diastolic heart failure, NYHA class 3 Is this a current diagnosis for this admission?: Yes (3) Acute respiratory failure with hypoxia Is this a current diagnosis for this admission?: Yes (4) Bipolar 1 disorder with moderate jovi Is this a current diagnosis for this admission?: Yes (5) Coronary artery disease Is this a current diagnosis for this admission?: Yes (6) Delirium Is this a current diagnosis for this admission?: Yes (7) Pneumonia Is this a current diagnosis for this admission?: No - Additional Information Resuscitation Status: Full Code Discharge Diet: Diabetic Discharge Activity: Activity As Tolerated, Balance Activity w/Rest, Energy Conservation, Weigh Daily Referrals: CHRISTINE ADEN DO [Primary Care Provider] - 07/07/20 9:30 am Prescriptions: Amoxicillin/Potassium Clav [Augmentin 875-125 Tablet] 1 tab PO Q12 #14 tablet Prednisone [Deltasone 10 mg Tablet] 10 mg PO ASDIR PRN #21 tablet PRN Reason: Oxycodone HCl [Oxy-Ir 5 mg Tablet] 5 mg PO Q6HP PRN #15 tablet PRN Reason: Home Medications: Albuterol Sulfate [Albuterol Sulfate Hfa] 2 puff IH Q4HP PRN 06/26/20 Fluticasone Propionate [Flonase Nasal [place] 50 Mcg/[place] 16 gm] 1 spray NASL Q12 06/26/20 Gabapentin [Neurontin] 600 mg PO TID 06/26/20 Lisinopril [Zestril] 10 mg PO DAILY 06/26/20 Loratadine [Claritin 10 mg Tablet] 10 mg PO DAILY 06/26/20 Metoprolol Succinate [Toprol Xl 25 mg Tab.sr] 25 mg PO DAILY 06/26/20 Tiotropium Br/Olodaterol HCl [Stiolto Respimat Inhal [place]] 2 puff IH DAILY 06/26/20 Amoxicillin/Potassium Clav [Augmentin 875-125 Tablet] 1 tab PO Q12 #14 tablet 06/30/20 Aspirin [Aspirin 81 mg Chewable Tablet] 81 mg NG DAILY tab.chew 06/30/20 Oxycodone HCl [Oxy-Ir 5 mg Tablet] 5 mg PO Q6HP PRN #15 tablet 06/30/20 Prednisone [Deltasone 10 mg Tablet] 10 mg PO ASDIR PRN #21 tablet 06/30/20 History of Present Illiness History of Present Illness: Per Critical care admission history and physical GALI CHURCH JR is a 60 year old male presented to [facility] emergency department with increased shortness of breath. The patient called EMS; however, special procedures technologist found the patient to be obtunded and unable to answer questions. SPO2 was noted to be 60% on his 4 LPM via nasal cannula. He has end-stage COPD and is on long-term oxygen therapy (4 LPM at baseline). He was transported to [facility] emergency department, where he remained obtunded and, consequently, was intubated. No arterial blood gas analysis was obtained. ABG obtained after arrival in the ICU on mechanical ventilatory support: pH 7.33, PCO2 56, PO2 149. History obtained from:: Review of the chart. Hospital Course Hospital Course: The patient initially required intubation. Pneumonia was a consideration but this was not demonstrated on x-ray. Sputum culture grew Haemophilus influenza which is consistent with smokers/COPD patients. The patient was extubated successfully. He was transferred out of the ICU yesterday. My preference would have been to keep the patient 1 more day but because of his personal obligations he would have signed out AGAINST MEDICAL ADVICE in which case I would not have prescribed any medications. Due to personal hardship I did in fact discharge the patient and prescribed medication to continue to treat the Haemophilus influenza. The patient will return to his other medications. His delirium was most likely due to medications with a possible contribution of his bipolar disorder. He will discharged to his baseline cardiac medications and inhalers with the addition of his antibiotics. Although he does carry a diagnosis of acute on chronic systolic and diastolic heart failure his heart failure was clinically stable during his admission. Physical Exam Vital Signs: Temp Pulse Resp BP Pulse Ox 98.0 F 88 18 117/74 95 06/30/20 13:07 06/30/20 13:07 06/30/20 13:07 06/30/20 13:07 06/30/20 13:07 Intake & Output 06/29/20 06/30/20 07/01/20 06:59 06:59 06:59 Intake Total 300 3690 472 Output Total 6818 4200 375 Balance -875 -000 97 Weight 58.8 kg 56.3 kg General appearance: PRESENT: no acute distress, cooperative, well-developed Head exam: PRESENT: atraumatic, normocephalic Respiratory exam: PRESENT: clear to auscultation nyasia, symmetrical, unlabored. ABSENT: accessory muscle use, decreased breath sounds, rales, rhonchi, tachypnea, wheezes Cardiovascular exam: PRESENT: RRR, +S1, +S2 GI/Abdominal exam: PRESENT: normal bowel sounds, soft. ABSENT: distended, guarding, tenderness Neurological exam: PRESENT: alert, awake, oriented to person, oriented to place, oriented to time, oriented to situation Psychiatric exam: PRESENT: anxious, manic - Mild Results Laboratory Results: WBC 9.4 10^3/uL (4.0-10.5) 06/29/20 04:14 RBC 4.28 10^6/uL (4.35-5.55) L 06/29/20 04:14 Hgb 12.9 g/dL (13.5-17.0) L 06/29/20 04:14 Hct 38.0 % (37.9-51.0) 06/29/20 04:14 MCV 89 fl (80-97) 06/29/20 04:14 MCH 30.2 pg (27.0-33.4) 06/29/20 04:14 MCHC 34.0 g/dL (32.0-36.0) 06/29/20 04:14 RDW 13.9 % (11.5-14.0) 06/29/20 04:14 Plt Count 177 10^3/uL (150-450) 06/29/20 04:14 Lymph % (Auto) 11.6 % (13-45) L 06/29/20 04:14 [place] % (Auto) 9.4 % (3-13) 06/29/20 04:14 Eos % (Auto) 0.1 % (0-6) 06/29/20 04:14 Baso % (Auto) 0.4 % (0-2) 06/29/20 04:14 Absolute Neuts (auto) 7.4 10^3/uL (1.7-8.2) 06/29/20 04:14 Absolute Lymphs (auto) 1.1 10^3/uL (0.5-4.7) 06/29/20 04:14 Absolute Monos (auto) 0.9 10^3/uL (0.1-1.4) 06/29/20 04:14 Absolute Eos (auto) 0.0 10^3/uL (0.0-0.6) 06/29/20 04:14 Absolute Basos (auto) 0.0 10^3/uL (0.0-0.2) 06/29/20 04:14 Total Counted 100 06/28/20 04:27 Seg Neutrophils % 78.5 % (42-78) H 06/29/20 04:14 Seg Neuts % (Manual) 89 % (42-78) H 06/28/20 04:27 Band Neutrophils % 2 % (3-5) L 06/28/20 04:27 Lymphocytes % (Manual) 3 % (13-45) L 06/28/20 04:27 Monocytes % (Manual) 6 % (3-13) 06/28/20 04:27 Eosinophils % (Manual) 0 % (0-6) 06/28/20 04:27 Basophils % (Manual) 0 % (0-2) 06/28/20 04:27 Abs Neuts (Manual) 13.7 10^3/uL (1.7-8.2) H 06/28/20 04:27 Abs Lymphs (Manual) 0.5 10^3/uL (0.5-4.7) 06/28/20 04:27 Abs Monocytes (Manual) 0.9 10^3/uL (0.1-1.4) 06/28/20 04:27 Absolute Eos (Manual) 0.0 10^3/uL (0.0-0.6) 06/28/20 04:27 Abs Basophils (Manual) 0.0 10^3/uL (0.0-0.2) 06/28/20 04:27 Platelet Comment ADEQUATE 06/28/20 04:27 RBC Morph Comment NORMO-CYTIC/CHROMIC 06/28/20 04:27 PT 12.9 SEC (11.4-15.4) 06/25/20 05:03 INR 0.95 06/25/20 05:03 APTT 31.0 SEC (23.5-35.8) 06/25/20 05:03 Carbonic Acid 1.18 mmol/L (1.05-1.35) 06/27/20 08:54 HCO3/H2CO3 Ratio 24:1 06/27/20 08:54 ABG pH 7.48 (7.35-7.45) H 06/27/20 08:54 ABG pCO2 39.2 mmHg (35-45) 06/27/20 08:54 ABG pO2 63.9 mmHg (80-100) L 06/27/20 08:54 ABG HCO3 28.4 mmol/L (20-24) H 06/27/20 08:54 ABG Total CO2 29.6 mmol/L (23-27) H 06/27/20 08:54 ABG O2 Saturation 93.8 % (94-98) L 06/27/20 08:54 ABG Base Excess 4.6 mmol/L 06/27/20 08:54 VBG pH 7.20 (7.30-7.42) L 06/25/20 06:17 VBG pCO2 69.9 mmHg (35-63) H* 06/25/20 06:17 VBG HCO3 26.8 mmol/L (20-32) 06/25/20 06:17 VBG Base Excess -2.6 mmol/L 06/25/20 06:17 FiO2 30% 06/27/20 08:54 Sodium 135.0 mmol/L (137-145) L 06/28/20 04:27 Potassium 4.7 mmol/L (3.6-5.0) 06/28/20 04:27 Chloride 98 mmol/L (98-107) 06/28/20 04:27 Carbon Dioxide 29 mmol/L (22-30) 06/28/20 04:27 Anion Gap 8 (5-19) 06/28/20 04:27 BUN 44 mg/dL (7-20) H 06/28/20 04:27 Creatinine 0.92 mg/dL (0.52-1.25) 06/28/20 04:27 Est GFR ( Amer) > 60 (>60) 06/28/20 04:27 Est GFR (Non-Af Amer) Cancelled 06/26/20 06:15 Est GFR (MDRD) Non-Af > 60 (>60) 06/28/20 04:27 Glucose 123 mg/dL (75-110) H 06/28/20 04:27 POC Glucose 136 mg/dL (70-110) H 06/25/20 12:22 Lactic Acid 1.3 mmol/L (0.7-2.1) 06/27/20 10:44 Calcium 9.5 mg/dL (8.4-10.2) 06/28/20 04:27 Phosphorus 3.0 mg/dL (2.5-4.5) 06/26/20 06:15 Magnesium 2.5 mg/dL (1.6-2.3) H 06/28/20 04:27 Total Bilirubin 0.3 mg/dL (0.2-1.3) 06/26/20 06:15 Direct Bilirubin 0.0 mg/dL (0.0-0.4) 06/26/20 06:15 Neonat Total Bilirubin Not Reportable 06/26/20 06:15 Neonat Direct Bilirubin Not Reportable 06/26/20 06:15 Neonat Indirect Bili Not Reportable 06/26/20 06:15 AST 26 U/L (17-59) 06/26/20 06:15 ALT 20 U/L (<50) 06/26/20 06:15 Alkaline Phosphatase 61 U/L (38-126) 06/26/20 06:15 Troponin I < 0.012 ng/mL 06/27/20 08:55 NT-Pro-B Natriuret Pep 481 pg/mL (<125) H 06/26/20 06:15 Total Protein 6.2 g/dL (6.3-8.2) L 06/26/20 06:15 Albumin 3.7 g/dL (3.5-5.0) 06/26/20 06:15 EGFR Cancelled 06/26/20 06:15 TSH 0.08 uIU/mL (0.47-4.68) L 06/27/20 03:57 Urine Opiates Screen UNCONFIRMED POSITIVE 06/25/20 16:15 Urine Methadone Screen NEGATIVE 06/25/20 16:15 Ur Barbiturates Screen NEGATIVE 06/25/20 16:15 Ur Phencyclidine Scrn NEGATIVE 06/25/20 16:15 Ur Amphetamines Screen NEGATIVE 06/25/20 16:15 U Benzodiazepines Scrn UNCONFIRMED POSITIVE 06/25/20 16:15 Urine Cocaine Screen NEGATIVE 06/25/20 16:15 U Marijuana (THC) Screen UNCONFIRMED POSITIVE 06/25/20 16:15 COVID-19 Source NASOPHARYNGEAL 06/25/20 07:17 COVID-19 (SARAH) NOT DETECTED 06/25/20 07:17 Blood Type B POSITIVE 06/25/20 06:17 Antibody Screen NEGATIVE 06/25/20 06:17 06/25/20 06/25/20 06/26/20 05:03 14:21 06:15 Troponin I < 0.012 < 0.012 NT-Pro-B Natriuret Pep 585 H 638 H 481 H 06/27/20 08:55 Troponin I < 0.012 NT-Pro-B Natriuret Pep Impressions: Chest X-Ray 06/25/20 05:14 IMPRESSION: Endotracheal tube tip in the lower trachea. Chest X-Ray 06/26/20 05:00 IMPRESSION: 1. Stable pulmonary exam. 2. Endotracheal tube terminates less than 1 cm cranial to the kali ; consider retracting 3 to 5 cm. Enteric tube terminates subdiaphragmatically out of the imaged field of view. Chest X-Ray 06/27/20 09:44 IMPRESSION: 1. Stable pulmonary exam. 2. Endotracheal and enteric tubes without evidence of complication. Chest X-Ray 06/28/20 05:00 IMPRESSION: 1. New right apical pneumothorax approximately 5%. 2. The patient has been extubated. 3. Right basilar airspace disease most likely atelectasis. Plan Health Concerns: Smoker with underlying coronary artery disease as well as systolic and diastolic heart failure. 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 Plan of Treatment: Return to baseline medications and complete antibiotics as ordered. Follow-up with Dr. Aden as well as possible follow-up visits with cardiology and pulmonology. Goals: Smoking cessation. Maximize control of COPD and heart failure. Time Spent: Greater than 30 Minutes Stroke Is this a Stroke Patient?: No Acute Heart Failure - Is this a Heart Failure Patient?: No
== END 2020-06-30 16:05 | disposition home or self-care (01) | DRG 208 ==
LOC: ER 04:53 → EH 06:32 → ICU 07:45 → 5 06-29 08:56
PROVIDERS: ADMIT Internal Medicine Critical Care Medicine; ATTEND Hospitalist
PROC: 5A1945Z Respiratory Ventilation, 24-96 Consecutive Hours (ICD-10-PCS; principal; 2020-06-25)
PROC: 0BH17EZ Insertion of Endotracheal Airway into Trachea, Via Natural or Artificial Opening (ICD-10-PCS; 2020-06-25)
DX: J44.1 Chronic obstructive pulmonary disease with (acute) exacerbation (principal); J96.21 Acute and chronic respiratory failure with hypoxia; J96.22 Acute and chronic respiratory failure with hypercapnia; E87.2 Acidosis; F31.2 Bipolar disorder, current episode manic severe with psychotic features; I50.22 Chronic systolic (congestive) heart failure; R41.0 Disorientation, unspecified; B96.3 Hemophilus influenzae [H. influenzae] as the cause of diseases classified elsewhere; F90.9 Attention-deficit hyperactivity disorder, unspecified type; I25.10 Atherosclerotic heart disease of native coronary artery without angina pectoris; I11.0 Hypertensive heart disease with heart failure; J44.9 Chronic obstructive pulmonary disease, unspecified; M19.90 Unspecified osteoarthritis, unspecified site; I95.9 Hypotension, unspecified; Z79.82 Long term (current) use of aspirin; Z82.49 Family history of ischemic heart disease and other diseases of the circulatory system; Z99.81 Dependence on supplemental oxygen; I25.2 Old myocardial infarction; Z79.51 Long term (current) use of inhaled steroids; Z79.52 Long term (current) use of systemic steroids; Z78.1 Physical restraint status
CPT/HCPCS: 36415; 51702; 71045; 80048; 80053; 80307; 82803; 82962; 83605; 83735; 83880; 84100; 84443; 84484; 85025; 85610; 85730; 86850; 86900; 86901; 87040; 87070; 87077; 87205; 87635; 93005; 93010; 94002; 94003; 94799; 96375; 99221; 99291; 99292; C9803; J0330; J0456; J0696; J1644; J1940; J2060; J2250; J2270; J2704; J2930; J3475; J3490; J7030; J7050; J7060; J7120; J7512; S0028

== ENCOUNTER 2020-07-06 03:30 | Emergency (ER) | payer MEDICAID ==
[2020-07-06 03:40] VITALS: BP 121/81
== END 2020-07-06 06:27 | disposition left against medical advice (07) ==
LOC: ER 03:30
DX: Z53.21 Procedure and treatment not carried out due to patient leaving prior to being seen by health care provider (principal)

== ENCOUNTER 2020-07-30 11:41 | Inpatient (IN) | payer MEDICAID ==
[~2020-07-30 11:41] MED LIST: ETOMIDATE INJ/PF 20 MG/10 ML SDV IV ONE; SUCCINYLCHOLINE CHLORIDE INJ 200 MG/10 ML VIAL IV ONE
[2020-07-30] MEDS ORDERED: PROPOFOL INJ 200 MG/20 ML VIAL IV ONE ×4 (11:54→14:00)
[2020-07-30] MEDS ORDERED: NORMAL SALINE 1000 ML 1,000 ML IV ONE (11:55)
[2020-07-30] MEDS ORDERED: PROPOFOL 1,000 MG/100 ML INFUS..BTL IV PRN (11:56)
[2020-07-30] MEDS: PROPOFOL 1,000 MG/100 ML INFUS..BTL IV PRN ×2 (12:00→18:19)
[2020-07-30 12:10] LABS: ABSOLUTE EOSINOPHILS # (AUTO) 0.9 10^3/uL (0.0-0.6); ABSOLUTE LYMPHOCYTES (AUTO) 1.4 10^3/uL (0.5-4.7); ABSOLUTE MONOCYTES (AUTO) 0.6 10^3/uL (0.1-1.4); ABSOLUTE NEUT (AUTO) 2.1 10^3/uL (1.7-8.2); BASOPHILS % (AUTO) 0.1 % (0-2); EOSINOPHILS % (AUTO) 17.8 % (0-6); HEMATOCRIT 34.1 % (37.9-51.0); HEMOGLOBIN 11.8 g/dL (13.5-17.0); LYMPHOCYTES % (AUTO) 28.8 % (13-45); MEAN CORPUSCULAR HEMOGLOBIN 30.9 pg (27.0-33.4); MEAN CORPUSCULAR HGB CONC 34.5 g/dL (32.0-36.0); MEAN CORPUSCULAR VOLUME 90 fl (80-97); MONOCYTES % (AUTO) 11.8 % (3-13); PLATELET COUNT 206 10^3/uL (150-450); RED BLOOD COUNT 3.81 10^6/uL (4.35-5.55); RED CELL DISTRIBUTION WIDTH 14.5 % (11.5-14.0); SEGMENTED NEUTROPHILS % (AUTO) 41.5 % (42-78); TOTAL CELLS COUNTED % (AUTO) 100 %
[2020-07-30 12:12] LABS: ARTERIAL BLOOD BASE EXCESS 0 mmol/L; ARTERIAL BLOOD H2CO3 1.73 mmol/L (1.05-1.35); ARTERIAL BLOOD HCO3 27.6 mmol/L (20-24); ARTERIAL BLOOD O2 SATURATION 99.7 % (94-98); ARTERIAL BLOOD PCO2 57.6 mmHg (35-45); ARTERIAL BLOOD PO2 345.2 mmHg (80-100); ARTERIAL BLOOD TOTAL CO2 29.3 mmol/L (23-27)
[2020-07-30 12:19] LABS: ARTERIAL BLOOD FIO2 60%
[2020-07-30 12:31] LABS: ALBUMIN 3.5 g/dL (3.5-5.0); ALKALINE PHOSPHATASE 64 U/L (38-126); ANION GAP 5 (5-19); ASPARTATE AMINO TRANSFERASE 15 U/L (17-59); BILIRUBIN,DIRECT 0.3 mg/dL (0.0-0.4); BILIRUBIN,TOTAL 0.5 mg/dL (0.2-1.3); BLOOD UREA NITROGEN 7 mg/dL (7-20); CALCIUM 8.3 mg/dL (8.4-10.2); CARBON DIOXIDE 29 mmol/L (22-30); CHLORIDE 105 mmol/L (98-107); CREATINE KINASE 63 U/L (55-170); GLUCOSE 92 mg/dL (75-110); POTASSIUM 4.2 mmol/L (3.6-5.0); TOTAL PROTEIN 5.6 g/dL (6.3-8.2)
[2020-07-30] MEDS ORDERED: ACETAMINOPHEN 325 MG TABLET PO PRN (13:03)
[2020-07-30] MEDS ORDERED: ONDANSETRON 4 MG TAB.RAPDIS NG PRN (13:03)
[2020-07-30 13:05] LABS: APPEARANCE,URINE CLEAR; BILIRUBIN,URINE NEGATIVE (NEGATIVE); COLOR,URINE STRAW; GLUCOSE, URINE NEGATIVE (NEGATIVE); KETONES,URINE NEGATIVE (NEGATIVE); LEUKOCYTE ESTERASE,URINE NEGATIVE (NEGATIVE); NITRITE,URINE NEGATIVE (NEGATIVE); PROTEIN,URINE NEGATIVE (NEGATIVE); UROBILINOGEN,URINE NEGATIVE mg/dL (<2.0)
[2020-07-30] MEDS ORDERED: PHARMACY COMMUNICATION ORDER MC NR (13:15)
--- NOTE | 2020-07-30 13:19 | ER Document Report ---
Entered by CATINA SPRINGER SCRIBE 07/30/20 1149 Acting as scribe for:PIO GUPTA MD ED Respiratory Problem - General Stated Complaint: DIFFICULTY BREATHING Mode of Arrival: Medic Information source: Emergency Med Personnel Cannot obtain history due to: Intubated Notes: This 60 year old male patient presents to the emergency department today with complaints of respiratory failure. History is extremely limited as patient was saturating at 60% when EMS arrived, they attempted to put the patient on c-pap and he began fighting it he was given 2.5 mg of versed. In total the patient received 2.5 mg of Versed, 2 g of magnesium, and 125 mg Solu-Medrol, and 2 DuoNeb treatments. TRAVEL OUTSIDE OF THE [place] IN LAST 30 DAYS: No - Related Data Allergies/Adverse Reactions: No Known Allergies Allergy (Verified 07/06/20 03:43) Past Medical History - General Information source: Emergency Med Personnel Cannot obtain history due to: Intubated - Social History Smoking Status: Current Every Day Smoker Cigarette use (# per day): Yes Family History: CAD, Hyperlipidemia, Hypertension - Past Medical History Cardiac Medical History: Reports: Hx Congestive Heart Failure, Hx Coronary Artery Disease, Hx Heart Attack, Hx Hypertension Pulmonary Medical History: Reports: Hx Bronchitis, Hx COPD, Hx Respiratory Failure Neurological Medical History: Reports: Hx Seizures - Seizures when drinking states he has not drank in 16 years Musculoskeletal Medical History: Reports Hx Arthritis, Reports Hx Musculoskeletal Deformity - degenerative disc disease, Reports Hx Musculoskeletal Trauma Psychiatric Medical History: Reports: Hx Attention Deficit Hyperactivity Disorder, Hx Bipolar Disorder, Hx Depression - Major depressive, Hx Schizoaffective Disorder Traumatic Medical History: Reports: Hx Fractures, Hx Spine Fracture - States "back in 2 places" Past Surgical History: Reports: Hx Cardiac Catheterization, Other - Patient states he had left pleural effusion status post chest tube placemen - Immunizations Hx Diphtheria, Pertussis, Tetanus Vaccination: Yes Review of Systems - Review of Systems -: Yes ROS unobtainable due to patient's medical condition Physical Exam - Vital signs Vitals: Resp 17 07/30/20 11:42 - Notes Notes: Physical Exam: General: Unresponsive, does not respond to painful stimuli. Wearing upper dentures, removed prior to intubation. Finger was placed back behind tongue behind the uvula without gag, [place] airway was used for airway visualization and he began gagging so etomidate and succinylcholine were given. HEENT: Normocephalic. Atraumatic. PERRL. Extraocular movements intact. Oropharynx clear. Neck: Supple. Non-tender. Respiratory: Severe respiratory distress. Bag-valve mask, not attempting to breathe over bagging. Cardiovascular: Regular rate and rhythm. Abdominal: Thin appearing. Non-tender. No distension. Normal Bowel Sounds. Back: No gross abnormalities. Extremities: Moves all four extremities. Upper extremities: Normal inspection. Normal ROM. Lower extremities: Normal inspection. No edema. Normal ROM. Neurological: Normal cognition. AAOx4. Normal speech. Psychological: Normal affect. Normal Mood. Skin: Warm. Dry. Normal color. Course - Vital Signs Vital signs: Temp Pulse Resp BP Pulse Ox 97.5 F 59 L 14 129/96 H 99 07/30/20 18:28 07/30/20 18:28 07/30/20 18:28 07/30/20 18:28 07/30/20 18:28 - Laboratory Result Diagrams: 07/30/20 11:48 07/30/20 11:48 Laboratory results interpreted by me: 07/30/20 07/30/20 07/30/20 11:48 11:48 11:48 RBC 3.81 L Hgb 11.8 L Hct 34.1 L RDW 14.5 H Eos % (Auto) 17.8 H Absolute Eos (auto) 0.9 H Seg Neutrophils % 41.5 L Carbonic Acid 1.73 H ABG pH 7.30 L ABG pCO2 57.6 H ABG pO2 345.2 H ABG HCO3 27.6 H ABG Total CO2 29.3 H ABG O2 Saturation 99.7 H Calcium 8.3 L Magnesium 3.1 H AST 15 L Total Protein 5.6 L - Diagnostic Test Radiology reviewed: Image reviewed - Chest x-ray shows endotracheal tube about 2.5 cm above the kali, NG tube, right lateral lung is partially cut off on the film, he does have COPD, diaphragms are clear. - EKG Interpretation by Me EKG shows normal: Sinus rhythm, [place], Intervals, ST-T Waves. abnormal: QRS Complexes - Borderline R wave progression in the anterior leads Rate: Normal - 52 Rhythm: NSR When compared to previous EKG there are: No significant change - Consults Dr. Quezada Time consulted: 13:00 Consulted provider: will come to ER Procedures - Intubation Orotracheal Time of Intubation: 11:40 Airway evaluation: Normal anatomy Medications: Etomidate, Succinylcholine Intubation method: Orotracheal Blade type: Other - Rony vision with channeled blade ETT size: 7.5 ETT secured at: Gums Breath Sounds after Intubation: Equal End tidal CO2 confirmed: Yes Post Intubation Xray: Yes Intubation Complications: No complications Notes: 07/30/20 12:23 Chest x-ray showed the tube needs to be advanced Critical Care Note - Critical Care Note Total time excluding time spent on procedures (mins): 35 Comments: At least 35 minutes spent evaluating this nearly apneic COPD patient. Time was spent evaluating patient, reviewing history with EMS, reviewing his recent admissions and lab work, reviewing current lab work, reviewing post intubation chest x-rays, discussing the patient with the control manager and starting the admission process. Discharge - Discharge Clinical Impression: Acute respiratory failure Qualifiers: Respiratory failure complication: hypoxia and hypercapnia Qualified Code(s): J96.01 - Acute respiratory failure with hypoxia; J96.02 - Acute respiratory failure with hypercapnia Condition: Good Disposition: ADMITTED INPATIENT Admitting Provider: Damien (Rotary Planer Set Up Operator) Unit Admitted: ICU I personally performed the services described in the documentation, reviewed and edited the documentation which was dictated to the scribe in my presence, and it accurately records my words and actions.
[2020-07-30] MEDS ORDERED: ACETAMINOPHEN SOLN 325 MG/10.15 ML UDCUP NG PRN (13:28)
--- NOTE | 2020-07-30 13:39 | RADIOLOGY REPORT (SQ) ---
EXAM DESCRIPTION: CHEST SINGLE VIEW IMAGES COMPLETED DATE/TIME: 07/30/2020 1:03 pm REASON FOR STUDY: post intubation COMPARISON: 06/28/2020 EXAM PARAMETERS: NUMBER OF VIEWS: One view TECHNIQUE: Single frontal radiographic view of the chest acquired. RADIATION DOSE: NA LIMITATIONS: None. FINDINGS: LUNGS AND PLEURA: There appear to be mild chronic changes in the upper lobes. No acute in filtrate. No pulmonary edema. No pneumothorax. MEDIASTINUM AND HILAR STRUCTURES: No masses. Contour normal. HEART AND VASCULAR STRUCTURES: Heart normal in size. Normal vasculature. BONES: No acute findings. HARDWARE: Endotracheal tube has its tip 4 cm above the kali. An NG tube extends to the stomach. OTHER: No other significant finding. IMPRESSION: Endotracheal tube placement as described. Chronic lung changes. TECHNICAL DOCUMENTATION: JOB ID: [id number] [email or web address]- All Rights Reserved Reading location - IP/workstation name: [email or web address]
[2020-07-30] MEDS: IPRATROPIUM/ALBUTEROL 0.5-2.5 MG/3 ML AMPUL NEB SCH ×2 (14:07→20:40)
--- NOTE | 2020-07-30 17:02 | CRITICAL CARE ADMISSION REPORT ---
HPI Date:: 07/30/20 Time:: 13:00 Reason for ICU Reason:: Intubated from a COPD exacerbation, probably hypercarbic Admission Date/Time & PCP: Admission Date/Time: 07/30/20 13:11 Primary Care Provider: CHRISTINE TRAYLOR DO HPI: This patient is a 60 yo man with known COPD with several admissions for hypercarbic exacerbations. He presents no after being found unresponsive at home, same on arrival and was intubated. He is now awake and weaning. Doing better with steroids. History obtained from:: Old records and Dr. Fuller - Diagnosis/Plan (1) Acute exacerbation of chronic obstructive pulmonary disease (COPD) Is this a current diagnosis for this admission?: Yes Plan: This seems to be improving. When extubated we need to explore continued smoking, reflux, non-compliance. For now solumedrol and albuterol. (2) Acute on chronic respiratory failure with hypercapnia Is this a current diagnosis for this admission?: Yes Plan: His pH was 7.30 with pCO2 57 indicating some degree of hypercarbia. Unknown how soon after extubation this was. Plan Summary: Wean to extubate soon. Past Medical History Cardiac Medical History: Reports: Congestive Heart Failure, Coronary Artery Dis ease, Myocardial Infarction, Hypertension Denies: DVT, Hyperlipidema, Pulmonary Embolism Pulmonary Medical History: Reports: Bronchitis, Chronic Obstructive Pulmonary Disease (COPD), Respiratory Failure Neurological Medical History: Reports: Seizures - Seizures when drinking states he has not drank in 16 years Endocrine Medical History: Denies: Diabetes Mellitus Type 1, Diabetes Mellitus Type 2, Hyperthyroidism, Hypothyroidism GI Medical History: Denies: Cirrhosis, Gastroesophageal Reflux Disease, Hepatitis Musculoskeltal Medical History: Reports: Arthritis Denies: Gout Psychiatric Medical History: Reports: Attention Deficit Hyperactivity Disorder, Bipolar Disorder, Depression - Major depressive, Schizoaffective Disorder Hematology: Reports: Anemia, Bleeding Tendencies Past Surgical History Past Surgical History: Reports: Cardiac Catheterization, Other - Patient states he had left pleural effusion status post chest tube placemen Social/Family History - Social History Smoking Status: Unknown if Ever Smoked Frequency of Alcohol Use: None Hx Recreational Drug Use: No Drugs: None Hx Prescription Drug Abuse: No - Medication/Allergies Home Medications: Albuterol Sulfate [Albuterol Sulfate Hfa] 2 puff IH Q4HP PRN 06/26/20 Fluticasone Propionate [Flonase Nasal [place] 50 Mcg/[place] 16 gm] 1 spray NASL Q12 06/26/20 Gabapentin [Neurontin] 600 mg PO TID 06/26/20 Lisinopril [Zestril] 10 mg PO DAILY 06/26/20 Loratadine [Claritin 10 mg Tablet] 10 mg PO DAILY 06/26/20 Metoprolol Succinate [Toprol Xl 25 mg Tab.sr] 25 mg PO DAILY 06/26/20 Tiotropium Br/Olodaterol HCl [Stiolto Respimat Inhal [place]] 2 puff IH DAILY 06/26/20 Amoxicillin/Potassium Clav [Augmentin 875-125 Tablet] 1 tab PO Q12 #14 tablet 06/30/20 Aspirin [Aspirin 81 mg Chewable Tablet] 81 mg NG DAILY tab.chew 06/30/20 Oxycodone HCl [Oxy-Ir 5 mg Tablet] 5 mg PO Q6HP PRN #15 tablet 06/30/20 Prednisone [Deltasone 10 mg Tablet] 10 mg PO ASDIR PRN #21 tablet 06/30/20 Allergies/Adverse Reactions: No Known Allergies Allergy (Verified 07/06/20 03:43) Review of Systems ROS unobtainable: Due to endotracheal tube, Due to mental status Physical Exam Vital Signs: Temp Pulse Resp BP Pulse Ox 95.0 F L 55 L 13 164/83 H 100 07/30/20 16:28 07/30/20 16:28 07/30/20 16:28 07/30/20 16:28 07/30/20 16:28 Intake & Output 07/29/20 07/30/20 07/31/20 06:59 06:59 06:59 Intake Total 1000 Balance 1000 Weight 65.9 kg Weight/Height Weight 65.9 kg Height 5 ft 10 in General appearance: PRESENT: no acute distress, thin Head exam: PRESENT: atraumatic, normocephalic Eye exam: PRESENT: conjunctiva pink, EOMI, PERRLA. ABSENT: scleral icterus Ear exam: PRESENT: normal external ear exam Mouth exam: PRESENT: moist, tongue midline Respiratory exam: PRESENT: decreased breath sounds, prolonged expiratory phas, symmetrical, unlabored Cardiovascular exam: PRESENT: RRR. ABSENT: diastolic murmur, rubs, systolic murmur GI/Abdominal exam: PRESENT: normal bowel sounds, soft. ABSENT: distended, guarding, mass, organolmegaly, rebound, tenderness Rectal exam: PRESENT: deferred Gentrourinary exam: PRESENT: indwelling catheter Extremities exam: PRESENT: full ROM. ABSENT: calf tenderness, clubbing, pedal edema Neurological exam: PRESENT: awake, oriented to person, CN II-XII grossly intact, other - Sedated Skin exam: PRESENT: dry, intact, warm. ABSENT: cyanosis, rash Tubes/Lines: PRESENT: Endotracheal Tube, Nasogastic Tube Laboratory/Radiographs Laboratory Results: 07/30/20 11:48 07/30/20 11:48 07/30/20 07/30/20 07/30/20 11:48 11:48 11:48 WBC 5.0 RBC 3.81 L Hgb 11.8 L Hct 34.1 L MCV 90 MCH 30.9 MCHC 34.5 RDW 14.5 H Plt Count 206 Seg Neutrophils % 41.5 L Carbonic Acid 1.73 H HCO3/H2CO3 Ratio 15:1 ABG pH 7.30 L ABG pCO2 57.6 H ABG pO2 345.2 H ABG HCO3 27.6 H ABG O2 Saturation 99.7 H ABG Base Excess 0 FiO2 60% Sodium 138.7 Potassium 4.2 Chloride 105 Carbon Dioxide 29 Anion Gap 5 BUN 7 Creatinine 0.83 Est GFR ( Amer) > 60 Glucose 92 Calcium 8.3 L Magnesium 3.1 H Total Bilirubin 0.5 AST 15 L Alkaline Phosphatase 64 Total Protein 5.6 L Albumin 3.5 Urine Color Urine Appearance Urine pH Ur Specific [place] Urine Protein Urine Glucose (UA) Urine Ketones Urine Blood Urine Nitrite Ur Leukocyte Esterase Urine WBC (Auto) Urine RBC (Auto) 07/30/20 12:40 WBC RBC Hgb Hct MCV MCH MCHC RDW Plt Count Seg Neutrophils % Carbonic Acid HCO3/H2CO3 Ratio ABG pH ABG pCO2 ABG pO2 ABG HCO3 ABG O2 Saturation ABG Base Excess FiO2 Sodium Potassium Chloride Carbon Dioxide Anion Gap BUN Creatinine Est GFR ( Amer) Glucose Calcium Magnesium Total Bilirubin AST Alkaline Phosphatase Total Protein Albumin Urine Color STRAW Urine Appearance CLEAR Urine pH 6.0 Ur Specific [place] 1.010 Urine Protein NEGATIVE Urine Glucose (UA) NEGATIVE Urine Ketones NEGATIVE Urine Blood NEGATIVE Urine Nitrite NEGATIVE Ur Leukocyte Esterase NEGATIVE Urine WBC (Auto) 0 Urine RBC (Auto) 0 07/30/20 07/30/20 11:48 11:48 Creatine Kinase 63 Troponin I < 0.012 Impressions: Chest X-Ray 07/30/20 11:55 IMPRESSION: Endotracheal tube placement as described. Chronic lung changes. EKG: NSR All labs, radiographs, diagnostic studies and EKGs were personally reviewed: Yes In addition, reports of radiographic and diagnostic studies were read: Yes Critical Time Critical Time (minutes): 40 -: The care of a critically ill patient is dynamic. This note represents a static moment in the admission process. Orders and treatments may be given simultaneously and urgently, and time is not customer account representative of the treatment process. This patient requires Critical Care secondary to life threatening organ or limb dysfunction. Without Critical Care services, the patient is at risk for increased mortality and morbidity.
[2020-07-30] MEDS: METHYLPREDNISOLONE INJ 40 MG/1 ML SDV IV SCH ×2 (18:26→21:45)
[2020-07-30] MEDS: PANTOPRAZOLE SODIUM 40 MG VIAL IV SCH (18:26)
[2020-07-30] MEDS: ENOXAPARIN SODIUM INJ 40 MG/0.4 ML DISP.SYRIN SUBCUT SCH (18:26)
--- NOTE | 2020-07-30 21:00 | EKG REPORT ---
SEVERITY:- BORDERLINE ECG - SINUS RHYTHM BORDERLINE R WAVE PROGRESSION, ANTERIOR LEADS : Confirmed by: Ivan Oseguera 30-Jul-2020 20:59:24
[2020-07-30] MEDS: NORMAL SALINE 1000 ML 1,000 ML IV PRN (21:48)
[2020-07-31] MEDS: IPRATROPIUM/ALBUTEROL 0.5-2.5 MG/3 ML AMPUL NEB SCH ×4 (01:52→20:32)
[2020-07-31] MEDS: PROPOFOL 1,000 MG/100 ML INFUS..BTL IV PRN ×2 (03:00→08:10)
[2020-07-31] MEDS ORDERED: ONDANSETRON HCL INJ/PF 4 MG/2 ML SDV ONE (03:09)
[2020-07-31] MEDS ORDERED: ONDANSETRON HCL INJ/PF 4 MG/2 ML SDV IV ONE (03:11)
[2020-07-31 04:53] LABS: ABSOLUTE LYMPHOCYTES (AUTO) 0.5 10^3/uL (0.5-4.7); ABSOLUTE MONOCYTES (AUTO) 0.1 10^3/uL (0.1-1.4); ABSOLUTE NEUT (AUTO) 4.2 10^3/uL (1.7-8.2); BASOPHILS % (AUTO) 0.1 % (0-2); HEMATOCRIT 35.9 % (37.9-51.0); HEMOGLOBIN 12.1 g/dL (13.5-17.0); LYMPHOCYTES % (AUTO) 9.8 % (13-45); MEAN CORPUSCULAR HEMOGLOBIN 30.3 pg (27.0-33.4); MEAN CORPUSCULAR HGB CONC 33.7 g/dL (32.0-36.0); MEAN CORPUSCULAR VOLUME 90 fl (80-97); MONOCYTES % (AUTO) 1.4 % (3-13); PLATELET COUNT 218 10^3/uL (150-450); RED BLOOD COUNT 3.99 10^6/uL (4.35-5.55); RED CELL DISTRIBUTION WIDTH 14.7 % (11.5-14.0); SEGMENTED NEUTROPHILS % (AUTO) 88.7 % (42-78); TOTAL CELLS COUNTED % (AUTO) 100 %; WHITE BLOOD COUNT 4.7 10^3/uL (4.0-10.5)
[2020-07-31 05:10] LABS: ANION GAP 11 (5-19); BLOOD UREA NITROGEN 12 mg/dL (7-20); CARBON DIOXIDE 23 mmol/L (22-30); CHLORIDE 105 mmol/L (98-107); GLUCOSE 146 mg/dL (75-110); POTASSIUM 4.5 mmol/L (3.6-5.0)
[2020-07-31 08:37] LABS: ARTERIAL BLOOD BASE EXCESS -0.5 mmol/L; ARTERIAL BLOOD H2CO3 1.16 mmol/L (1.05-1.35); ARTERIAL BLOOD O2 SATURATION 98.2 % (94-98); ARTERIAL BLOOD PCO2 38.7 mmHg (35-45); ARTERIAL BLOOD PH 7.41 (7.35-7.45); ARTERIAL BLOOD PO2 113.6 mmHg (80-100); ARTERIAL BLOOD TOTAL CO2 25.2 mmol/L (23-27)
[2020-07-31 08:38] LABS: ARTERIAL BLOOD FIO2 30%
[2020-07-31] MEDS: NORMAL SALINE 1000 ML 1,000 ML IV PRN (09:51)
[2020-07-31] MEDS: PANTOPRAZOLE SODIUM 40 MG VIAL IV SCH (09:52)
[2020-07-31] MEDS: METHYLPREDNISOLONE INJ 40 MG/1 ML SDV IV SCH (09:52)
[2020-07-31] MEDS: ENOXAPARIN SODIUM INJ 40 MG/0.4 ML DISP.SYRIN SUBCUT SCH (09:52)
--- NOTE | 2020-07-31 11:11 | RADIOLOGY REPORT (SQ) ---
EXAM DESCRIPTION: CHEST SINGLE VIEW IMAGES COMPLETED DATE/TIME: 07/31/2020 5:44 am REASON FOR STUDY: intubated COMPARISON: None. NUMBER OF VIEWS: One view. TECHNIQUE: Single frontal radiographic view of the chest acquired. LIMITATIONS: None. FINDINGS: LUNGS AND PLEURA: Chronic scarring again noted in the lung apices with relative hyperlucen cy of the lung bases. No new focal consolidation. No pleural effusion or pneumothorax. MEDIASTINUM AND HILAR STRUCTURES: No masses. Contour normal. HEART AND VASCULAR STRUCTURES: Heart normal in size. Normal vasculature. BONES: No acute findings. HARDWARE: Endotracheal and enteric tubes are grossly unchanged in position. OTHER: No other significant finding. IMPRESSION: No significant interval change. TECHNICAL DOCUMENTATION: JOB ID: [id number] 2010 [employer]- All Rights Reserved Reading location - IP/workstation name: [email or web address]
[2020-07-31] MEDS: OXYCODONE-ACETAMINOPHEN 5-325 MG TABLET NG PRN (21:18)
[2020-08-01] MEDS ORDERED: LEVALBUTEROL HCL NEB 1.25 MG/3 ML AMPUL NEB SCH (02:00)
[2020-08-01] MEDS: IPRATROPIUM/ALBUTEROL 0.5-2.5 MG/3 ML AMPUL NEB SCH ×4 (02:02→21:47)
[2020-08-01] MEDS ORDERED: (PENDING PHARMACY ID) (Oxycodone Hcl/Acetaminophen [Percocet 10-325 Mg Tablet] 1 EACH) PO PRN (07:52)
[2020-08-01] MEDS: ENOXAPARIN SODIUM INJ 40 MG/0.4 ML DISP.SYRIN SUBCUT SCH (09:18)
[2020-08-01] MEDS: METOPROLOL SUCCINATE 25 MG TAB.SR.24H PO SCH (09:19)
[2020-08-01] MEDS: PREDNISONE 20 MG TABLET NG SCH (09:19)
[2020-08-01] MEDS: LISINOPRIL 10 MG TABLET PO SCH (09:20)
[2020-08-01] MEDS: OXYCODONE-ACETAMINOPHEN 5-325 MG TABLET NG PRN ×3 (09:20→21:44)
[2020-08-01] MEDS: LORATADINE 10 MG TABLET PO SCH (09:20)
--- NOTE | 2020-08-01 09:47 | PDOC CRITICAL CARE PROG REPORT ---
General Date:: 08/01/20 Hospital Day:: 2 Resuscitation Status: Do Not Intubate Events in the past 12 to 24 Hours:: Extubated, walking, eating, in back pain. Review of systems relevant to events:: Respiratory. Reason for ICU Addmission:: Extubated and ready for transfer. - Medications: Medications reviewed and adjusted accordingly: Yes Vasopressors:: None Sedation:: None Physical Exam Vital Signs: Temp Pulse Resp BP Pulse Ox 98.8 F 82 18 132/81 H 95 08/01/20 07:39 08/01/20 08:15 08/01/20 08:15 08/01/20 07:39 08/01/20 08:15 Intake & Output 07/31/20 08/01/20 08/02/20 06:59 06:59 06:59 Intake Total 1113 3 Output Total 590 2005 250 Balance 523 108 -250 Weight 59.5 kg 61 kg Weight/Height Weight 61 kg Height 5 ft 9 in General appearance: PRESENT: cooperative, mild distress - Back pain, thin Head exam: PRESENT: atraumatic, normocephalic Eye exam: PRESENT: conjunctiva pink, EOMI, PERRLA. ABSENT: scleral icterus Ear exam: PRESENT: normal external ear exam Mouth exam: PRESENT: moist, tongue midline Respiratory exam: PRESENT: clear to auscultation nyasia, decreased breath sounds. ABSENT: rales, rhonchi, wheezes Cardiovascular exam: PRESENT: RRR. ABSENT: diastolic murmur, rubs, systolic murmur GI/Abdominal exam: PRESENT: normal bowel sounds, soft. ABSENT: distended, guarding, mass, organolmegaly, rebound, tenderness Rectal exam: PRESENT: deferred Extremities exam: PRESENT: full ROM. ABSENT: calf tenderness, clubbing, pedal edema Musculoskeletal exam: PRESENT: normal inspection Neurological exam: PRESENT: alert, awake, oriented to person, oriented to place, oriented to time, oriented to situation, CN II-XII grossly intact. ABSENT: motor sensory deficit Psychiatric exam: PRESENT: appropriate affect, normal mood. ABSENT: homicidal ideation, suicidal ideation Skin exam: PRESENT: dry, intact, warm. ABSENT: cyanosis, rash Laboratory/Radiographs Laboratory Results: 07/31/20 04:20 07/31/20 04:20 08/01/20 05:56 Magnesium 2.2 07/30/20 07/30/20 11:48 11:48 Creatine Kinase 63 Troponin I < 0.012 Impressions: Chest X-Ray 07/31/20 05:00 IMPRESSION: No significant interval change. All labs, radiographs, diagnostic studies and EKGs were personally reviewed: Yes In addition, reports of radiographic and diagnostic studies were read: Yes Assessment and Plan - Diagnosis (1) Acute exacerbation of chronic obstructive pulmonary disease (COPD) Is this a current diagnosis for this admission?: Yes Plan: Improved, nearly resolved. On PO prednisone. (2) Acute on chronic respiratory failure with hypercapnia Is this a current diagnosis for this admission?: Yes Plan: Resolved. (3) Tobacco abuse Is this a current diagnosis for this admission?: Yes Plan: Pt is somewhat vague focusing more on 'black mold' in his house rather than on tobacco. Need for quiting emphasized. (4) Chronic pain Qualifiers: Chronic pain type: other chronic pain Qualified Code(s): G89.29 - Other chronic pain Is this a current diagnosis for this admission?: Yes Plan: His main concern is getting comfortable. He is in a position with back pain asking for his percocet 10mg. I agree he is in pain. He may be in an element of opiate WD making a discharge now somewhat questionable until comfortable. Plan Summary: Downgrade to medical floor. If comfortable later today may discharge. Critical Time Critical Time (minutes): 30 Level of Care: MEDICAL Anticipated discharge: Home Anticipated DC Timeframe: within 48 hours -: 1. The care of a critical patient is a dynamic process. This note is a new accounts representative synopsis but static in nature. The timeframe for treatments given in order is not necessarily the actual time these treatments may have been done. 2. This patient requires critical care secondary to ongoing requirements for therapy not offered or safe outside the critical care environment. Transfer to a lower level of care will result in altered life or limb morbidity and mortality. 3. Multidisciplinary rounds completed. 4. ABCDE bundle addressed.
[2020-08-01] MEDS ORDERED: DEXTROAMPHETAMINE PO SCH (10:00)
[2020-08-01] MEDS ORDERED: (PENDING PHARMACY ID) (Dextroamphetamine/Amphetamine [Adderall 30 Mg Tablet] 30 MG) PO SCH (10:00)
[2020-08-01] MEDS ORDERED: PREDNISONE 20 MG TABLET PO SCH (10:00)
[2020-08-01] MEDS ORDERED: AMPHETAMINE PO SCH (10:00)
[2020-08-01] MEDS: FLUTICASONE NASAL SPRAY 50 MCG/SPRY 120 SPRAY/16 GM NASL SCH (13:47)
[2020-08-01] MEDS: GABAPENTIN 300 MG CAPSULE PO SCH ×2 (13:48→21:44)
[2020-08-01] MEDS ORDERED: LORAZEPAM INJ 2 MG/1 ML VIAL ONE (15:08)
[2020-08-01] MEDS ORDERED: LORAZEPAM INJ 2 MG/1 ML VIAL IV ONE (15:11)
[2020-08-02] MEDS: IPRATROPIUM/ALBUTEROL 0.5-2.5 MG/3 ML AMPUL NEB SCH ×3 (02:27→14:40)
[2020-08-02] MEDS: OXYCODONE-ACETAMINOPHEN 5-325 MG TABLET NG PRN (06:27)
[2020-08-02] MEDS: GABAPENTIN 300 MG CAPSULE PO SCH (06:27)
[2020-08-02] MEDS: METOPROLOL SUCCINATE 25 MG TAB.SR.24H PO SCH (09:40)
[2020-08-02] MEDS: LORATADINE 10 MG TABLET PO SCH (09:40)
[2020-08-02] MEDS: PREDNISONE 20 MG TABLET NG SCH (09:40)
[2020-08-02] MEDS: LISINOPRIL 10 MG TABLET PO SCH (09:40)
[2020-08-02] MEDS: ENOXAPARIN SODIUM INJ 40 MG/0.4 ML DISP.SYRIN SUBCUT SCH (09:41)
[2020-08-02] MEDS: FLUTICASONE NASAL SPRAY 50 MCG/SPRY 120 SPRAY/16 GM NASL SCH (09:41)
--- NOTE | 2020-08-02 09:45 | PDOC CRITICAL CARE PROG REPORT ---
General Date:: 08/02/20 ICU Day:: 4 Resuscitation Status: Full Code Reason for ICU Addmission:: Extubated and ready for transfer. Physical Exam Vital Signs: Temp Pulse Resp BP Pulse Ox 98.8 F 59 L 12 158/91 H 99 08/02/20 08:34 08/02/20 08:22 08/02/20 08:22 08/02/20 06:01 08/02/20 08:22 Intake & Output 08/01/20 08/02/20 08/03/20 06:59 06:59 06:59 Intake Total 2112 Output Total 2004 2224 Balance 108 -2224 Weight 61 kg 60.7 kg Weight/Height Weight 60.7 kg Height 5 ft 9 in General appearance: PRESENT: no acute distress Head exam: PRESENT: atraumatic, normocephalic Ear exam: PRESENT: normal external ear exam Neck exam: ABSENT: carotid bruit, meningismus Respiratory exam: ABSENT: accessory muscle use, prolonged expiratory phas Pulses: PRESENT: normal carotid pulses, normal dorsalis pedis pul Rectal exam: PRESENT: deferred Gentrourinary exam: ABSENT: ecchymosis, lesions Neurological exam: PRESENT: alert, oriented to person, oriented to place, oriented to time Psychiatric exam: PRESENT: flat affect Laboratory/Radiographs Laboratory Results: 07/31/20 04:20 07/31/20 04:20 08/02/20 05:54 Magnesium 1.9 07/30/20 07/30/20 11:48 11:48 Creatine Kinase 63 Troponin I < 0.012 Impressions: Chest X-Ray 07/31/20 05:00 IMPRESSION: No significant interval change. Assessment and Plan - Diagnosis (1) Acute and chronic respiratory failure Qualifiers: Respiratory failure complication: hypoxia Qualified Code(s): J96.21 - Acute and chronic respiratory failure with hypoxia Is this a current diagnosis for this admission?: Yes Plan: The patient was extubated 08/01. His respiratory status renmains stable. No use of accdessory resp. mm. O2 sat in hisgh 90s on nasal cannula. The patient appears to be in a positioin to be discharged today. (2) Bipolar 1 disorder Is this a current diagnosis for this admission?: Yes (4) Chronic pain Qualifiers: Chronic pain type: chronic pain syndrome Qualified Code(s): G89.29 - Other chronic pain Is this a current diagnosis for this admission?: Yes Critical Time Critical Time (minutes): 15 Level of Care: ICU -: 1. The care of a critical patient is a dynamic process. This note is a representative personal service synopsis but static in nature. The timeframe for treatments given in order is not necessarily the actual time these treatments may have been done. 2. This patient requires critical care secondary to ongoing requirements for therapy not offered or safe outside the critical care environment. Transfer to a lower level of care will result in altered life or limb morbidity and mortality. 3. Multidisciplinary rounds completed. 4. ABCDE bundle addressed.
[2020-08-02] MEDS ORDERED: ACETAMINOPHEN SOLN 325 MG/10.15 ML UDCUP PO PRN (10:30)
[2020-08-02] MEDS ORDERED: OXYCODONE-ACETAMINOPHEN 5-325 MG TABLET PO PRN (10:30)
[2020-08-02] MEDS ORDERED: ONDANSETRON 4 MG TAB.RAPDIS PO PRN (10:30)
[2020-08-02 15:30] VITALS: BP 148/91
[2020-08-03] MEDS ORDERED: PREDNISONE 20 MG TABLET PO SCH (10:00)
--- NOTE | 2020-08-31 13:15 | PDOC DISCHARGE SUMMARY ---
Impression - Admit/DC Date/PCP Admission Date/Primary Care Provider: 07/30/20 13:11 CHRISTINE TRAYLOR DO Discharge Date: 08/02/20 - Discharge Diagnosis (1) Acute and chronic respiratory failure Is this a current diagnosis for this admission?: Yes (2) Bipolar 1 disorder Is this a current diagnosis for this admission?: Yes (4) Chronic pain Is this a current diagnosis for this admission?: Yes - Additional Information Resuscitation Status: Full Code Discharge Diet: Regular Discharge Activity: Activity As Tolerated Referrals: CHRISTINE TRAYLOR DO [Primary Care Provider] - Follow up as needed Home Medications: Albuterol Sulfate [Albuterol Sulfate Hfa] 2 puff IH Q4HP PRN 06/26/20 Fluticasone Propionate [Flonase Nasal [place] 50 Mcg/[place] 16 gm] 1 spray NASL DAILY 06/26/20 Gabapentin [Neurontin] 600 mg PO TID 06/26/20 Lisinopril [Zestril] 10 mg PO DAILY 06/26/20 Loratadine [Claritin 10 mg Tablet] 10 mg PO DAILY 06/26/20 Metoprolol Succinate [Toprol Xl 25 mg Tab.sr] 25 mg PO DAILY 06/26/20 Tiotropium Br/Olodaterol HCl [Stiolto Respimat Inhal [place]] 2 puff IH DAILY 06/26/20 Dextroamphetamine/Amphetamine [Adderall 10 mg Tablet] 5 mg PO BID 07/31/20 Dextroamphetamine/Amphetamine [Adderall 30 mg Tablet] 30 mg PO BID 07/31/20 Oxycodone HCl/Acetaminophen [Percocet 10-325 Mg Tablet] 1 each PO QIDP PRN 07/31/20 History of Present Illiness History of Present Illness: GALI CHURCH JR is a 60 year old male He was intubated for acute on chronic respiratory failuire. This was thoughtt ot be secondary to an exacerbation of his COPD. He was extubated and doing well 2 days larter. He was discharged on prednisone and his bronchodilator inhalers. Hospital Course Hospital Course: The patient was treated with a regimen of steroids a, HHN and mechanical ventialtion. CIVID teat was negative. Physical Exam Vital Signs: Temp Pulse Resp BP Pulse Ox 98.8 F 65 29 H 147/108 H 95 08/02/20 14:57 08/02/20 14:57 08/02/20 15:00 08/02/20 14:57 08/02/20 15:00 General appearance: PRESENT: no acute distress Head exam: PRESENT: normocephalic Eye exam: PRESENT: conjunctiva pink Mouth exam: PRESENT: moist, neck supple Neck exam: PRESENT: full ROM, thyromegaly. ABSENT: JVD Respiratory exam: PRESENT: clear to auscultation nyasia. ABSENT: accessory muscle use Cardiovascular exam: PRESENT: +S1, +S2. ABSENT: bradycardia GI/Abdominal exam: PRESENT: normal bowel sounds, organolmegaly Rectal exam: PRESENT: deferred Gentrourinary exam: ABSENT: lesions Extremities exam: PRESENT: joint swelling. ABSENT: calf tenderness Musculoskeletal exam: PRESENT: ambulatory Psychiatric exam: PRESENT: normal mood Results Laboratory Results: WBC 4.7 10^3/uL (4.0-10.5) 07/31/20 04:20 RBC 3.99 10^6/uL (4.35-5.55) L 07/31/20 04:20 Hgb 12.1 g/dL (13.5-17.0) L 07/31/20 04:20 Hct 35.9 % (37.9-51.0) L 07/31/20 04:20 MCV 90 fl (80-97) 07/31/20 04:20 MCH 30.3 pg (27.0-33.4) 07/31/20 04:20 MCHC 33.7 g/dL (32.0-36.0) 07/31/20 04:20 RDW 14.7 % (11.5-14.0) H 07/31/20 04:20 Plt Count 218 10^3/uL (150-450) 07/31/20 04:20 Lymph % (Auto) 9.8 % (13-45) L 07/31/20 04:20 Day % (Auto) 1.4 % (3-13) L 07/31/20 04:20 Eos % (Auto) 0.0 % (0-6) 07/31/20 04:20 Baso % (Auto) 0.1 % (0-2) 07/31/20 04:20 Absolute Neuts (auto) 4.2 10^3/uL (1.7-8.2) 07/31/20 04:20 Absolute Lymphs (auto) 0.5 10^3/uL (0.5-4.7) 07/31/20 04:20 Absolute Monos (auto) 0.1 10^3/uL (0.1-1.4) 07/31/20 04:20 Absolute Eos (auto) 0.0 10^3/uL (0.0-0.6) 07/31/20 04:20 Absolute Basos (auto) 0.0 10^3/uL (0.0-0.2) 07/31/20 04:20 Seg Neutrophils % 88.7 % (42-78) H 07/31/20 04:20 Carbonic Acid 1.16 mmol/L (1.05-1.35) 07/31/20 08:20 HCO3/H2CO3 Ratio 20:1 07/31/20 08:20 ABG pH 7.41 (7.35-7.45) 07/31/20 08:20 ABG pCO2 38.7 mmHg (35-45) 07/31/20 08:20 ABG pO2 113.6 mmHg (80-100) H 07/31/20 08:20 ABG HCO3 24.0 mmol/L (20-24) 07/31/20 08:20 ABG Total CO2 25.2 mmol/L (23-27) 07/31/20 08:20 ABG O2 Saturation 98.2 % (94-98) H 07/31/20 08:20 ABG Base Excess -0.5 mmol/L 07/31/20 08:20 FiO2 30% 07/31/20 08:20 Sodium 138.5 mmol/L (137-145) 07/31/20 04:20 Potassium 4.5 mmol/L (3.6-5.0) 07/31/20 04:20 Chloride 105 mmol/L (98-107) 07/31/20 04:20 Carbon Dioxide 23 mmol/L (22-30) 07/31/20 04:20 Anion Gap 11 (5-19) 07/31/20 04:20 BUN 12 mg/dL (7-20) 07/31/20 04:20 Creatinine 0.72 mg/dL (0.52-1.25) 07/31/20 04:20 Est GFR ( Amer) > 60 (>60) 07/31/20 04:20 Est GFR (MDRD) Non-Af > 60 (>60) 07/31/20 04:20 Glucose 146 mg/dL (75-110) H 07/31/20 04:20 POC Glucose 105 mg/dL (70-110) 07/30/20 11:45 Calcium 9.0 mg/dL (8.4-10.2) 07/31/20 04:20 Magnesium 1.9 mg/dL (1.6-2.3) 08/02/20 05:54 Total Bilirubin 0.5 mg/dL (0.2-1.3) 07/30/20 11:48 Direct Bilirubin 0.3 mg/dL (0.0-0.4) 07/30/20 11:48 Neonat Total Bilirubin Not Reportable 07/30/20 11:48 Neonat Direct Bilirubin Not Reportable 07/30/20 11:48 Neonat Indirect Bili Not Reportable 07/30/20 11:48 AST 15 U/L (17-59) L 07/30/20 11:48 ALT 10 U/L (<50) 07/30/20 11:48 Alkaline Phosphatase 64 U/L (38-126) 07/30/20 11:48 Creatine Kinase 63 U/L (55-170) 07/30/20 11:48 Troponin I < 0.012 ng/mL 07/30/20 11:48 Total Protein 5.6 g/dL (6.3-8.2) L 07/30/20 11:48 Albumin 3.5 g/dL (3.5-5.0) 07/30/20 11:48 Urine Color STRAW 07/30/20 12:40 Urine Appearance CLEAR 07/30/20 12:40 Urine pH 6.0 (5.0-9.0) 07/30/20 12:40 Ur Specific [place] 1.010 07/30/20 12:40 Urine Protein NEGATIVE mg/dL (NEGATIVE) 07/30/20 12:40 Urine Glucose (UA) NEGATIVE mg/dL (NEGATIVE) 07/30/20 12:40 Urine Ketones NEGATIVE mg/dL (NEGATIVE) 07/30/20 12:40 Urine Blood NEGATIVE (NEGATIVE) 07/30/20 12:40 Urine Nitrite NEGATIVE (NEGATIVE) 07/30/20 12:40 Urine Bilirubin NEGATIVE (NEGATIVE) 07/30/20 12:40 Urine Urobilinogen NEGATIVE mg/dL (<2.0) 07/30/20 12:40 Ur Leukocyte Esterase NEGATIVE (NEGATIVE) 07/30/20 12:40 Urine WBC (Auto) 0 /HPF 07/30/20 12:40 Urine RBC (Auto) 0 /HPF 07/30/20 12:40 Urine Bacteria (Auto) TRACE /HPF 07/30/20 12:40 Squamous Epi Cells Auto <1 /HPF 07/30/20 12:40 Urine Mucus (Auto) RARE /LPF 07/30/20 12:40 Urine Ascorbic Acid NEGATIVE (NEGATIVE) 07/30/20 12:40 COVID-19 Source See comment 07/30/20 13:49 COVID-19 (SARAH) Not Detected (Not Detect) 07/30/20 13:49 07/30/20 11:48 Troponin I < 0.012 Impressions: Chest X-Ray 07/30/20 11:55 IMPRESSION: Endotracheal tube placement as described. Chronic lung changes. Chest X-Ray 07/31/20 05:00 IMPRESSION: No significant interval change. Plan Critical Time: 20 Level of Care: MEDICAL Stroke Is this a Stroke Patient?: No Acute Heart Failure Is this a Heart Failure Patient?: No
== END 2020-08-02 15:20 | disposition home or self-care (01) | DRG 208 ==
LOC: ER 11:41 → EH 13:11 → ICU 14:32
PROVIDERS: ADMIT Anesthesiology; ATTEND Anesthesiology
PROC: 5A1945Z Respiratory Ventilation, 24-96 Consecutive Hours (ICD-10-PCS; principal; 2020-07-30)
PROC: 0BH17EZ Insertion of Endotracheal Airway into Trachea, Via Natural or Artificial Opening (ICD-10-PCS; 2020-07-30)
DX: J96.22 Acute and chronic respiratory failure with hypercapnia (principal); J44.1 Chronic obstructive pulmonary disease with (acute) exacerbation; I11.0 Hypertensive heart disease with heart failure; I50.9 Heart failure, unspecified; I25.10 Atherosclerotic heart disease of native coronary artery without angina pectoris; F31.9 Bipolar disorder, unspecified; G89.29 Other chronic pain; M19.90 Unspecified osteoarthritis, unspecified site; F17.210 Nicotine dependence, cigarettes, uncomplicated; Z20.828 Contact with and (suspected) exposure to other viral communicable diseases; Z82.49 Family history of ischemic heart disease and other diseases of the circulatory system; Z83.438 Family history of other disorder of lipoprotein metabolism and other lipidemia; I25.2 Old myocardial infarction; Z79.51 Long term (current) use of inhaled steroids; Z79.899 Other long term (current) drug therapy; Z79.82 Long term (current) use of aspirin
CPT/HCPCS: 36415; 51702; 71045; 80048; 80053; 81001; 82550; 82803; 82962; 83735; 84484; 85025; 87040; 87635; 93005; 93010; 94002; 94003; 94640; 94660; 96361; 96374; 96376; 99291; C9113; C9803; J0330; J1650; J2060; J2405; J2704; J2920; J3490; J7030; J7512

== ENCOUNTER 2020-09-21 06:57 | Emergency (ER) | payer MEDICAID ==
[2020-09-21 08:20] LABS: ABSOLUTE EOSINOPHILS # (AUTO) 0.7 10^3/uL (0.0-0.6); ABSOLUTE LYMPHOCYTES (AUTO) 0.7 10^3/uL (0.5-4.7); ABSOLUTE MONOCYTES (AUTO) 0.4 10^3/uL (0.1-1.4); ABSOLUTE NEUT (AUTO) 5.5 10^3/uL (1.7-8.2); EOSINOPHILS % (AUTO) 10.1 % (0-6); HEMATOCRIT 39.4 % (37.9-51.0); HEMOGLOBIN 13.6 g/dL (13.5-17.0); LYMPHOCYTES % (AUTO) 10.1 % (13-45); MEAN CORPUSCULAR HEMOGLOBIN 30.7 pg (27.0-33.4); MEAN CORPUSCULAR HGB CONC 34.5 g/dL (32.0-36.0); MEAN CORPUSCULAR VOLUME 89 fl (80-97); PLATELET COUNT 211 10^3/uL (150-450); RED BLOOD COUNT 4.43 10^6/uL (4.35-5.55); RED CELL DISTRIBUTION WIDTH 13.9 % (11.5-14.0); SEGMENTED NEUTROPHILS % (AUTO) 74.8 % (42-78); TOTAL CELLS COUNTED % (AUTO) 100 %; WHITE BLOOD COUNT 7.4 10^3/uL (4.0-10.5)
[2020-09-21 08:41] LABS: ALBUMIN 4.3 g/dL (3.5-5.0); ALKALINE PHOSPHATASE 81 U/L (38-126); ANION GAP 8 (5-19); ASPARTATE AMINO TRANSFERASE 19 U/L (17-59); BILIRUBIN,DIRECT 0.1 mg/dL (0.0-0.4); BILIRUBIN,TOTAL 0.4 mg/dL (0.2-1.3); BLOOD UREA NITROGEN 9 mg/dL (7-20); CALCIUM 9.2 mg/dL (8.4-10.2); CARBON DIOXIDE 29 mmol/L (22-30); CHLORIDE 102 mmol/L (98-107); GLUCOSE 113 mg/dL (75-110); POTASSIUM 4.7 mmol/L (3.6-5.0); TOTAL PROTEIN 6.5 g/dL (6.3-8.2)
--- NOTE | 2020-09-21 08:56 | RADIOLOGY REPORT (SQ) ---
EXAM DESCRIPTION: CHEST SINGLE VIEW IMAGES COMPLETED DATE/TIME: 09/21/2020 8:22 am REASON FOR STUDY: SOB COMPARISON: 07/31/2020 EXAM PARAMETERS: NUMBER OF VIEWS: One view. TECHNIQUE: Single frontal radiographic view of the chest acquired. RADIATION DOSE: NA LIMITATIONS: None. FINDINGS: LUNGS AND PLEURA: Chronic blunting of the left costophrenic angle. No opacities, masses o r pneumothorax. No pleural effusion. MEDIASTINUM AND HILAR STRUCTURES: No masses. Contour normal. HEART AND VASCULAR STRUCTURES: Heart normal in size. Normal vasculature. BONES: No acute findings. HARDWARE: None in the chest. OTHER: No other significant finding. IMPRESSION: NO ACUTE RADIOGRAPHIC FINDING IN THE CHEST. TECHNICAL DOCUMENTATION: JOB ID: [id number] 2010 [employer]- All Rights Reserved Reading location - IP/workstation name: [email or web address]
[2020-09-21 11:11] LABS: APPEARANCE,URINE CLEAR; BILIRUBIN,URINE NEGATIVE (NEGATIVE); COLOR,URINE STRAW; GLUCOSE, URINE NEGATIVE (NEGATIVE); KETONES,URINE NEGATIVE (NEGATIVE); LEUKOCYTE ESTERASE,URINE NEGATIVE (NEGATIVE); NITRITE,URINE NEGATIVE (NEGATIVE); PROTEIN,URINE NEGATIVE (NEGATIVE); URINE SPECIFIC GRAVITY 1.009; UROBILINOGEN,URINE NEGATIVE mg/dL (<2.0)
--- NOTE | 2020-09-21 11:17 | RADIOLOGY REPORT (SQ) ---
EXAM DESCRIPTION: L SPINE 2 VIEWS IMAGES COMPLETED DATE/TIME: 09/21/2020 9:58 am REASON FOR STUDY: pain COMPARISON: CT angiography chest 03/15/2020. NUMBER OF VIEWS: Two views. TECHNIQUE: AP and lateral radiographic images acquired of the lumbar spine. LIMITATIONS: None. FINDINGS: MINERALIZATION: Normal. SEGMENTATION: Normal. No transitional anatomy. ALIGNMENT: Normal. VERTEBRAE: Anterior wedging at L2 is stable from prior CT. Small marginal osteophytes at the endplat es. No acute fracture. DISCS: Degenerative disc disease. POSTERIOR ELEMENTS: Pedicles and facets are intact. No pars defect or posterior arch defects. HARDWARE: None in the spine. PARASPINAL SOFT TISSUES: Normal. PELVIS: Intact as visualized. No fractures or worrisome bone lesions. SI joints intact. OTHER: No other significant finding. IMPRESSION: Chronic anterior wedging at L2 is stable. No acute fracture or dislocation. Spondylosi s and degenerative disc disease. TECHNICAL DOCUMENTATION: JOB ID: [id number] 2010 [employer]- All Rights Reserved Reading location - IP/workstation name: [email or web address]
--- NOTE | 2020-09-21 11:50 | ER Document Report ---
ED General - General Chief Complaint: Shortness Of Breath Stated Complaint: BREATHING PROBLEM Time Seen by Provider: 09/21/20 09:06 Primary Care Provider: CHRISTINE TRAYLOR DO [Primary Care Provider] - Follow up as needed Information source: Patient TRAVEL OUTSIDE OF THE [place] IN LAST 30 DAYS: No - HPI Notes: Patient presents complaining of shortness of breath. He states he is a COPD patient that he still smoke cigarettes and that he has been short of breath for last 2 to 3 days. He states he is also had a nonproductive cough. No known exposures to the Covid virus. He denies any chest pain. He states he does have an increase of his low back pain but does not have any new injuries. He states his back pain is worse because they took him off of Percocet and gave him Vicodin. He also states he has been having some trouble with agitation because they discontinued his Adderall secondary to his positive test for methamphetamines. Patient states this must of been a false dose because he does not do any type of drugs. - Related Data Allergies/Adverse Reactions: No Known Allergies Allergy (Verified 07/06/20 03:43) Home Medications: vicodin and reports he is out of his adderall Past Medical History - General Information source: Patient - Social History Smoking Status: Current Every Day Smoker Frequency of alcohol use: None Drug Abuse: None Family History: CAD, Hyperlipidemia, Hypertension Patient has homicidal ideation: No - Past Medical History Cardiac Medical History: Reports: Hx Congestive Heart Failure, Hx Coronary Artery Disease, Hx Heart Attack, Hx Hypertension Denies: Hx DVT, Hx Hypercholesterolemia, Hx Pulmonary Embolism Pulmonary Medical History: Reports: Hx Bronchitis, Hx COPD, Hx Respiratory Failure Neurological Medical History: Reports: Hx Seizures - Seizures when drinking states he has not drank in 16 years Endocrine Medical History: Denies: Hx Diabetes Mellitus Type 1, Hx Diabetes Mellitus Type 2, Hx Hyperthyroidism, Hx Hypothyroidism Renal/ Medical History: Denies: Hx Peritoneal Dialysis GI Medical History: Denies: Hx Cirrhosis, Hx Gastroesophageal Reflux Disease, Hx Hepatitis Musculoskeletal Medical History: Reports Hx Arthritis, Denies Hx Gout, Reports Hx Musculoskeletal Deformity - degenerative disc disease, Reports Hx Musculoskeletal Trauma Psychiatric Medical History: Reports: Hx Attention Deficit Hyperactivity Disorder, Hx Bipolar Disorder, Hx Depression - Major depressive, Hx Schizoaffective Disorder Traumatic Medical History: Reports: Hx Fractures, Hx Spine Fracture - States "back in 2 places" Infectious Medical History: Denies: Hx Hepatitis Past Surgical History: Reports: Hx Cardiac Catheterization, Other - Patient states he had left pleural effusion status post chest tube placemen - Immunizations Hx Diphtheria, Pertussis, Tetanus Vaccination: Yes Review of Systems - Review of Systems Constitutional: denies: Chills, Fever Cardiovascular: denies: Chest pain, Palpitations Respiratory: Cough, Short of breath -: Yes All other systems reviewed and negative Physical Exam - Vital signs Vitals: Temp Resp 97.2 F 27 H 09/21/20 07:38 09/21/20 07:38 Interpretation: Normal - General General appearance: Appears well, Alert - HEENT Head: Normocephalic, Atraumatic Eyes: Normal Pupils: PERRL - Respiratory Respiratory status: No respiratory distress Chest status: Nontender Breath sounds: Rhonchi Chest palpation: Normal - Cardiovascular Rhythm: Regular Heart sounds: Normal auscultation Murmur: No - Abdominal Inspection: Normal Distension: No distension Bowel sounds: Normal Tenderness: Nontender Organomegaly: No organomegaly - Back Back: Normal, Tender - Diffuse tenderness to palpation of the lumbar spine. Inspection is unremarkable. - Extremities General upper extremity: Normal inspection, Nontender, Normal color, Normal ROM, Normal temperature General lower extremity: Normal inspection, Nontender, Normal color, Normal ROM, Normal temperature, Normal weight bearing. No: Alina's sign - Neurological Neuro grossly intact: Yes Cognition: Normal Orientation: AAOx4 Onelia Coma Scale Eye Opening: Spontaneous Onelia Coma Scale Verbal: Oriented Gaston Coma Scale Motor: Obeys Commands Gaston Coma Scale Total: 15 Speech: Normal Motor strength normal: LUE, RUE, LLE, RLE Sensory: Normal - Psychological Associated symptoms: Normal affect, Normal mood - Skin Skin Temperature: Warm Skin Moisture: Dry Skin Color: Normal Course - Re-evaluation Re-evalutation: 09/21/20 11:51 Patient arrives stating that he is been having worsening shortness of breath the last several days. He also states he has worsening back pain. This is been secondary to having his pain medication change. There is no no new injury and x-rays are unremarkable for any acute changes. Exam of the back is also unremarkable other than tenderness. Patient has no neurological deficits. His lungs have some rhonchi however it is very hard to ascertain how different his breathing is from baseline. He obviously does not appear to be in any type of respiratory distress. He does not appear to have significant increased work of breathing. His saturations have been adequate and patient is on 3 L of home O2. Here on 2 L of of oxygen he is 96%. I am going to treat the patient has a COPD exacerbation with some steroids antibiotics and have him followed up as an outpatient. - Vital Signs Vital signs: Temp Pulse Resp BP Pulse Ox 97.8 F 17 152/74 H 94 09/21/20 08:01 09/21/20 11:30 09/21/20 11:30 09/21/20 11:30 - Laboratory Result Diagrams: 09/21/20 07:53 09/21/20 07:53 Laboratory results interpreted by me: 09/21/20 09/21/20 07:53 07:53 Lymph % (Auto) 10.1 L Eos % (Auto) 10.1 H Absolute Eos (auto) 0.7 H Glucose 113 H - Diagnostic Test Radiology reviewed: Image reviewed, Reports reviewed - EKG Interpretation by Me EKG shows normal: Sinus rhythm Rate: Normal - 77 Rhythm: NSR Crumpler/QRS: No: Right axis deviation, Left axis deviation Discharge - Discharge Clinical Impression: COPD exacerbation Condition: Stable Disposition: HOME, SELF-CARE Additional Instructions: Please follow-up with your primary care doctor as soon as possible Prescriptions: Cefdinir 300 mg PO BID 7 Days #14 capsule Prednisone [Deltasone 20 mg Tablet] 3 tab PO DAILY 5 Days tablet Referrals: CHRISTINE TRAYLOR DO [Primary Care Provider] - Follow up tomorrow
[2020-09-21] MEDS ORDERED: PREDNISONE 20 MG TABLET PO ONE (11:53)
[2020-09-21] MEDS ORDERED: SULFAMETHOXAZOLE/TRIMETHOPRIM 800-160 MG TABLET PO ONE (11:54)
[2020-09-21] MEDS ORDERED: MORPHINE SULFATE 10 MG/ML INJ IV ONE (12:11)
[2020-09-21 12:24] VITALS: BP 155/93
--- NOTE | 2020-09-21 17:46 | EKG REPORT ---
SEVERITY:- BORDERLINE ECG - SINUS RHYTHM PROBABLE LEFT ATRIAL ABNORMALITY BORDERLINE R WAVE PROGRESSION, ANTERIOR LEADS : Confirmed by: Ivan Oseguera 21-Sep-2020 17:46:15
== END 2020-09-21 12:34 | disposition home or self-care (01) ==
LOC: ER 06:57
DX: J44.1 Chronic obstructive pulmonary disease with (acute) exacerbation (principal); F17.210 Nicotine dependence, cigarettes, uncomplicated; I50.9 Heart failure, unspecified; I11.0 Hypertensive heart disease with heart failure; I25.2 Old myocardial infarction
CPT/HCPCS: 93005; 99285; 96374; 36415; 85025; 80053; 81001; 71045; 72100; 93010; J2270; J7512; J3490

== ENCOUNTER 2020-11-21 14:04 | Emergency (ER) | payer MEDICAID ==
[2020-11-21 14:53] LABS: ABSOLUTE EOSINOPHILS # (AUTO) 0.3 10^3/uL (0.0-0.6); ABSOLUTE LYMPHOCYTES (AUTO) 1.1 10^3/uL (0.5-4.7); ABSOLUTE MONOCYTES (AUTO) 0.5 10^3/uL (0.1-1.4); ABSOLUTE NEUT (AUTO) 3.4 10^3/uL (1.7-8.2); BASOPHILS % (AUTO) 0.2 % (0-2); EOSINOPHILS % (AUTO) 6.4 % (0-6); HEMATOCRIT 38.7 % (37.9-51.0); LYMPHOCYTES % (AUTO) 21.4 % (13-45); MEAN CORPUSCULAR HEMOGLOBIN 29.3 pg (27.0-33.4); MEAN CORPUSCULAR HGB CONC 33.6 g/dL (32.0-36.0); MEAN CORPUSCULAR VOLUME 87 fl (80-97); MONOCYTES % (AUTO) 9.1 % (3-13); PLATELET COUNT 172 10^3/uL (150-450); RED BLOOD COUNT 4.43 10^6/uL (4.35-5.55); RED CELL DISTRIBUTION WIDTH 14.5 % (11.5-14.0); SEGMENTED NEUTROPHILS % (AUTO) 62.9 % (42-78); TOTAL CELLS COUNTED % (AUTO) 100 %; WHITE BLOOD COUNT 5.4 10^3/uL (4.0-10.5)
--- NOTE | 2020-11-21 14:53 | RADIOLOGY REPORT (SQ) ---
EXAM DESCRIPTION: CHEST SINGLE VIEW IMAGES COMPLETED DATE/TIME: 11/21/2020 1:36 pm REASON FOR STUDY: bed 5 sepsis protocol COMPARISON: 09/21/2020 EXAM PARAMETERS: NUMBER OF VIEWS: One view. TECHNIQUE: Single frontal radiographic view of the chest acquired. RADIATION DOSE: NA LIMITATIONS: None. FINDINGS: LUNGS AND PLEURA: Lungs are hyperinflated. No focal consolidation or pleural effusion. N o pneumothorax. MEDIASTINUM AND HILAR STRUCTURES: No masses. Contour normal. HEART AND VASCULAR STRUCTURES: Heart normal in size. Normal vasculature. BONES: No acute findings. HARDWARE: None in the chest. OTHER: No other significant finding. IMPRESSION: No acute cardiopulmonary disease. Hyperinflated lungs which can be seen with obstructiv e lung disease. TECHNICAL DOCUMENTATION: JOB ID: [id number] 2010 [employer]- All Rights Reserved Reading location - IP/workstation name: [email or web address]
[2020-11-21 14:59] LABS: INTERNATIONAL RATION (INR) 0.87; PROTHROMBIN TIME 12.1 SEC (11.4-15.4)
[2020-11-21 15:07] LABS: ALBUMIN 3.7 g/dL (3.5-5.0); ALKALINE PHOSPHATASE 61 U/L (38-126); ASPARTATE AMINO TRANSFERASE 21 U/L (17-59); BILIRUBIN,DIRECT 0.1 mg/dL (0.0-0.4); BILIRUBIN,TOTAL 0.3 mg/dL (0.2-1.3); BLOOD UREA NITROGEN 12 mg/dL (7-20); CALCIUM 9.2 mg/dL (8.4-10.2); GLUCOSE 119 mg/dL (75-110); TOTAL PROTEIN 5.9 g/dL (6.3-8.2)
[2020-11-21 15:13] LABS: CARBON DIOXIDE 29 mmol/L (22-30); CHLORIDE 103 mmol/L (98-107)
[2020-11-21 15:14] LABS: POTASSIUM 4.4 mmol/L (3.6-5.0)
[2020-11-21 15:15] LABS: ANION GAP 5 (5-19)
--- NOTE | 2020-11-21 15:22 | ER Document Report ---
ED General - General Stated Complaint: SHORTNESS OF BREATH Time Seen by Provider: 11/21/20 14:17 Primary Care Provider: CHRISTINE TRAYLOR DO [Primary Care Provider] - Follow up as needed Notes: HPI: 60-year-old male with a past medical history of what he states is COPD chronically on 3 L of nasal cannula oxygen who presents today with shortness of breath. Patient states to me that he believes it is completely because he forgot his oxygen tank when he went to sleep at his girlfriend's last night. Patient normally stays on 3 L nasal cannula. He denies any fevers, nasal congestion, chest pain, abdominal pain, calf pain or leg swelling. No recent trips or travel. No vomiting or diarrhea. ROS: See HPI All other review of systems reviewed and otherwise negative Reviewed vital signs and nursing note as charted by RN. PHYSICAL EXAM: CONSTITUTIONAL: Alert and oriented and responds appropriately to questions. Well-appearing; well-nourished HEAD: Normocephalic; atraumatic EYES: PERRL; Conjunctivae clear, sclerae non-icteric ENT: Normal nose; no rhinorrhea; moist mucous membranes; pharynx without lesions noted NECK: Supple without meningismus; non-tender; no cervical lymphadenopathy, no masses CARD: Regular rate and rhythm; no murmurs; symmetric distal pulses RESP: Normal chest excursion without splinting or tachypnea; breath sounds clear and equal bilaterally; scant expiratory wheezing without rales or rhonchi ABD/GI: Normal bowel sounds; non-distended; soft, non-tender BACK: The back appears normal and is non-tender to palpation EXT: Normal ROM in all joints; non-tender to palpation; no edema SKIN: No acute lesions noted NEURO: CN 2-12 intact; 5/5 bilateral upper and lower extremity strength with sensation intact to light touch PSYCH: The patient's mood and manner are appropriate. Grooming and personal hygiene are appropriate. TRAVEL OUTSIDE OF THE [place] IN LAST 30 DAYS: No - Related Data Allergies/Adverse Reactions: No Known Allergies Allergy (Verified 11/21/20 14:37) Past Medical History - Social History Smoking Status: Unknown if Ever Smoked Family History: CAD, Hyperlipidemia, Hypertension - Past Medical History Cardiac Medical History: Reports: Hx Congestive Heart Failure, Hx Coronary Ar bernard Disease, Hx Heart Attack, Hx Hypertension Denies: Hx DVT, Hx Hypercholesterolemia, Hx Pulmonary Embolism Pulmonary Medical History: Reports: Hx Bronchitis, Hx COPD, Hx Respiratory Failure Neurological Medical History: Reports: Hx Seizures - Seizures when drinking states he has not drank in 16 years Endocrine Medical History: Denies: Hx Diabetes Mellitus Type 1, Hx Diabetes Mellitus Type 2, Hx Hyperthyroidism, Hx Hypothyroidism Renal/ Medical History: Denies: Hx Peritoneal Dialysis GI Medical History: Denies: Hx Cirrhosis, Hx Gastroesophageal Reflux Disease, Hx Hepatitis Musculoskeletal Medical History: Reports Hx Arthritis, Denies Hx Gout, Reports Hx Musculoskeletal Deformity - degenerative disc disease, Reports Hx Musculoskeletal Trauma Psychiatric Medical History: Reports: Hx Attention Deficit Hyperactivity Disorder, Hx Bipolar Disorder, Hx Depression - Major depressive, Hx Schizoaffective Disorder Traumatic Medical History: Reports: Hx Fractures, Hx Spine Fracture - States " back in 2 places" Infectious Medical History: Denies: Hx Hepatitis Past Surgical History: Reports: Hx Cardiac Catheterization, Other - Patient states he had left pleural effusion status post chest tube placemen - Immunizations Hx Diphtheria, Pertussis, Tetanus Vaccination: Yes Physical Exam - Vital signs Vitals: Pulse Ox 100 11/21/20 14:08 Course - Re-evaluation Re-evalutation: Given the above history and physical with the patient stating he did not have his oxygen tank with him when he slept at his girlfriend's last night, receiving a breathing treatment satting 100% currently of 101, I do believe ACS, PE, coronavirus, dissection to be unlikely. 11/21/20 15:29 Labs as recorded thus far. Patient is still feeling quite well according to patient's own report. 11/21/20 16:27 Patient is breathing well on his 3 L baseline oxygen. Satting 97%. Nebulizer given. Wheezing has improved. I have provided steroids and doxycycline. Patient would like to go home. I do believe this is a reasonable option given the above history and physical. I will provide a 4-day course of steroids and a course of doxycycline. - Vital Signs Vital signs: Temp Pulse Resp BP Pulse Ox 97.8 F 22 H 149/90 H 98 11/21/20 14:16 11/21/20 15:01 11/21/20 15:01 11/21/20 15:01 - Laboratory Results Result Diagrams: 11/21/20 14:05 11/21/20 14:05 Laboratory Results Interpreted: 11/21/20 11/21/20 11/21/20 14:05 14:05 15:10 Hgb 13.0 L RDW 14.5 H Eos % (Auto) 6.4 H VBG pH 7.27 L Glucose 119 H Total Protein 5.9 L Critical Laboratory Results Reviewed: No Critical Results - Radiology Results Critical Radiology Results Reviewed: No Critical Results Discharge - Discharge Clinical Impression: Wheezing, Nonadherence to medication Condition: Fair Disposition: HOME, SELF-CARE Additional Instructions: Come back immediately for any worsening cough, chest pain, fever, calf pain or leg swelling, or any other acute problems. Please take 2 puffs of the albuterol nebulizer every 4 hours for the next 48 hours and every 6 hours after that. Please fill your course of steroids and doxycycline as we have prescribed. Prescriptions: Prednisone [Deltasone 20 mg Tablet] 3 tab PO DAILY 4 Days #12 tablet Doxycycline Hyclate 100 mg PO BID #14 tablet. Referrals: CHRISTINE TRAYLOR DO [Primary Care Provider] - Follow up as needed
[2020-11-21 15:28] LABS: VENOUS BLOOD BASE EXCESS -1.1 mmol/L; VENOUS BLOOD HCO3 27.2 mmol/L (20-32); VENOUS BLOOD PCO2 60.5 mmHg (35-63); VENOUS BLOOD PH 7.27 (7.30-7.42)
[2020-11-21] MEDS ORDERED: IPRATROPIUM/ALBUTEROL 0.5-2.5 MG/3 ML AMPUL NEB SCH (15:30)
[2020-11-21] MEDS ORDERED: DOXYCYCLINE HYCLATE 100 MG TABLET PO ONE (15:30)
[2020-11-21] MEDS ORDERED: PREDNISONE 20 MG TABLET PO ONE (15:30)
[2020-11-21 16:42] VITALS: BP 146/87
--- NOTE | 2020-11-21 22:39 | EKG REPORT ---
SEVERITY:- ABNORMAL ECG - SINUS RHYTHM EVELIN, CONSIDER BIATRIAL ABNORMALITIES BORDERLINE R WAVE PROGRESSION, ANTERIOR LEADS NONSPECIFIC T ABNORMALITIES, LATERAL LEADS : Confirmed by: Ivan Oseguera 21-Nov-2020 22:38:42
== END 2020-11-21 17:02 | disposition home or self-care (01) ==
LOC: ER 14:04
DX: J44.9 Chronic obstructive pulmonary disease, unspecified (principal); T41.5X6A Underdosing of therapeutic gases, initial encounter; Z91.138 Patient's unintentional underdosing of medication regimen for other reason; Z91.14 Patient's other noncompliance with medication regimen; Z99.81 Dependence on supplemental oxygen; I25.10 Atherosclerotic heart disease of native coronary artery without angina pectoris; I10 Essential (primary) hypertension; I25.2 Old myocardial infarction
CPT/HCPCS: 93005; 94640; 99285; 36415; 87040; 83605; 85025; 85610; 87635; 80053; 82803; 71045; 93010; J3490; J7512; C9803